=== PATIENT | female | born 1960 | race African-American/Black ===

== ENCOUNTER 2017-05-13 09:35 | Inpatient (IN) | payer SELFPAY ==
[2017-05-13 10:19] LABS: #Lymphocytes 1.8 thou/uL (1.20-3.40); #Monocytes 0.3 thou/uL (0.11-0.59); %Basophils 0.8 % (0.0-1.0); %Eosinophils 0.3 % (0.0-10.0); %Lymphocytes 35.5 % (21.0-51.0); %Monocytes 6.1 % (0.0-10.0); Mean Platelet Volume 11.6 fL (7.4-10.4); Red Blood Cell (RBC) Count 5.41 mill/uL (4.20-5.40); White Blood Cell (WBC) Count 5.2 thou/uL (4.8-10.8)
[2017-05-13 10:43] LABS: ALT (SGPT) 31 U/L (8-55); AST (SGOT) 35 U/L (5-34); Alkaline Phosphatase 139 U/L (40-150); Anion Gap 10 mmol/L (10-20); BUN (Urea Nitrogen) 31 mg/dL (9.8-20.1); Bilirubin, Total 1.5 mg/dL (0.2-1.2); CK (CPK) 110 U/L (29-168); Calc. Creatinine Clearance 0 mL/min (70-130); Carbon Dioxide 36 mmol/L (22-29); Chloride 101 mmol/L (98-107); Estimated GFR-MDRD 78; Globulin 3.2 g/dL (2.4-3.5); Lipase 16 U/L (8-78); Protein, Total 6.3 g/dL (6.0-8.3)
--- NOTE | 2017-05-13 10:44 | RAD ---
PORTABLE CHEST: HISTORY: Cough. COMPARISON: Comparison is made to the prior exam of 06/23/11. FINDINGS: There has been significant enlargement in the cardiac silhouette when compared to the prior study. H eart has somewhat of a globular appearance. Pericardial effusion cannot be excluded. Consider furth er evaluation with echo. No evidence of infiltrate. No evidence of vascular congestion or edema. No evidence of effusion. IMPRESSION: Cardiomegaly. Significant change in appearance of the heart since the prior exam. Pericardial effus ion cannot be excluded. POS: JARROD
[2017-05-13 10:48] LABS: Troponin I 0.018 ng/mL (< 0.028)
[2017-05-13] MEDS ORDERED: Aspirin 81 mg Enteric Coated Tablet ONE (11:46)
[2017-05-13] MEDS ORDERED: Furosemide 40 MG/4 ML VIAL ONE (11:46)
[2017-05-13 13:49] LABS: Troponin I 0.028 ng/mL (< 0.028)
--- NOTE | 2017-05-13 14:05 | HP ---
PRIMARY CARE PHYSICIAN: [facility]. REASON FOR ADMISSION: New onset congestive heart failure and anasarca. HISTORY OF PRESENT ILLNESS: A 56-year-old -[place] female with a history of hypertension and hypothyroidism, who presented to emergency room for evaluation of increasing bilateral lower extremity edema. The patient has increasing lower extremity edema for the last one month, which is gradually getting worse. The patient has history of CHF and she ran out of her Lasix. The patient was not taking any Lasix for about 1 month and since then she noticed increasing edema. The patient denies any fever or chills, but she does report cough, productive of white sputum. She does report orthopnea. She reports weight gain about 14 pounds in 1 month. The patient also has a history of diabetes, but she was not taking any metformin therapy. She does have a history of hypertension and she is taking all her medication. She gets dyspnea on exertion. She denies any palpitations. She denies any syncope. She denies any chest pain. She denies any urinary tract infection symptoms. She denies any constipation, diarrhea, melena, or hematochezia. ALLERGIES: No known drug allergies. CURRENT HOME MEDICATIONS: The patient is not taking any medication at this point because she ran out of medication and she did not follow up with the primary care physician. REVIEW OF SYSTEMS: The following complete review of systems was negative, unless otherwise mentioned in the HPI or below: Constitutional: Weight loss or gain, ability to conduct usual activities. Skin: Rash, itching. Eyes: Double vision, pain. ENT/Mouth: Nose bleeding, neck stiffness, pain, tenderness. Cardiovascular: Palpitations, dyspnea on exertion, orthopnea. Respiratory: Shortness of breath, wheezing, cough, hemoptysis, fever or night sweats. Gastrointestinal: Poor appetite, abdominal pain, heartburn, nausea, vomiting, constipation, or diarrhea. Genitourinary: Urgency, frequency, dysuria, nocturia. Musculoskeletal: Pain, swelling. Neurologic/Psychiatric: Anxiety, depression. Allergy/Immunologic: Skin rash, bleeding tendency. Please see my HPI for pertinent positives and negatives. All other review of system reviewed and negative except as mentioned in the HPI. PAST MEDICAL HISTORY: Diabetes type 2, iatrogenic hypothyroidism, hypertension , and COPD. PAST SURGICAL HISTORY: Thyroidectomy. PAST PSYCHIATRIC HISTORY: Reviewed and negative. SOCIAL HISTORY: The patient is smoking about 1 pack per day. She denies any alcohol abuse. She denies any other illicit drug abuse. 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 FAMILY HISTORY: Mother had lung cancer. Hypertension runs among several family members. EMERGENCY ROOM COURSE: The patient is given Lasix 40 mg and aspirin 324 mg. PHYSICAL EXAMINATION: VITAL SIGNS: On arrival, blood pressure 130/89, pulse 87, respiratory rate 24, temperature 97.7, saturation 91% on room air, and weight 83.9 kilograms. GENERAL: The patient is currently alert, awake, chronically ill, no obvious acute distress. HEENT: Head: Normocephalic, atraumatic. Eyes: Pupils round, reactive to light. Extraocular muscles intact. ENT: Oropharynx within normal limits. Moist mucous membranes. No oral lesions. No pharyngeal erythema, no exudate. NECK: Supple, slightly elevated JVD, no thyromegaly, no carotid bruit, no meningeal signs of irritation. LUNGS: Bibasilar rales noted, end expiratory wheezing heard. CARDIAC: S1 and S2 regular, soft systolic murmur noted. No gallop, no rub. ABDOMEN: Soft. Ascites present. Bowel sounds present. Abdominal wall edema noted. No peritoneal signs, no guarding, no rigidity, no rebound. BACK: Unremarkable, no CVA tenderness. EXTREMITIES: Upper extremity passive movement of all joints are normal. Lower extremity; bilateral +4 pitting edema noted over both lower extremities. Good pulsation noted. SKIN: No skin rash. HEMATOLOGICAL: No lymphadenopathy. PSYCHIATRIC: Normal affect. NEUROLOGIC: Nonfocal examination. SIGNIFICANT LABS: EKG based on my review reveals normal sinus rhythm, nonspecific ST-T changes, biatrial enlargement. Chest x-ray showing cardiomegaly, pulmonary vascular congestion noted. CBC: WBC 5.2, hemoglobin 17.4, MCV 102.0, platelets 123. BMP: Sodium 143, potassium 3.7, chloride 101, carbon dioxide 36, anion gap 10, BUN 31, creatinine 0.91, glucose 92, calcium 10.0. LFT: AST 35, ALT 31, alkaline phosphatase 139, albumin 3.1. CK 110, CK-MB 2.8, troponin 0.018. BNP 681.7, lipase 16. ASSESSMENT AND PLAN: 1. Acute on chronic right-sided congestive heart failure, likely diastolic, predominantly right-sided heart failure, suspecting from chronic hypoxia from undiagnosed chronic obstructive pulmonary disease. At this point, the patient has anasarca. The patient will need diuretic therapy. The patient will be admitted to telemetry floor. We will obtain echocardiography to assess ejection fraction and other structural abnormality, we will continue with Lasix 40 mg IV b.i.d., fluid restriction 1200 mL per day, DuoNeb therapy q.6 hourly. Further decision, we will defer after the echocardiographic result. If this patient now to be systolic heart failure, then she will need ischemic evaluation and cardiology evaluation if needed. We will rule out acute coronary syndrome with serial cardiac enzymes during this admission. 2. Macrocytosis. We will start folic acid and vitamin B12 therapy and we will check hepatitis profile to rule out any hepatitis. 3. Ascites. 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 The patient will need diuretic therapy. We are also going to check hepatitis profile to rule out any liver pathology. 4. Diabetes type 2. We will continue with insulin as per sliding scale per protocol. Diabetic diet will be given and will repeat hemoglobin A1c tomorrow. 5. Hypothyroidism. We will check TSH and start Synthroid 75 mcg p.o. daily. 6. Hypertension. We will monitor patient's blood pressure and titrate blood pressure medication while in hospital. 7. Tobacco abuse disorder. Smoking cessation counseling given. Healthy lifestyle measures discussed with the patient. We will offer nicotine patch if needed. 8. Elevated carbon dioxide on BMP, suspecting from chronic respiratory acidosis. We will obtain ABG, just to look for any respiratory acid base status. This could be from metabolic alkalosis and that is why we are going to do the ABG for further evaluation. 9. Chronic obstructive pulmonary disease. We will continue with the DuoNeb therapy q.6 hourly while in hospital. 10. Deep venous thrombosis prophylaxis. Lovenox 40 mg subcu daily. 11. Gastrointestinal prophylaxis. Pepcid 20 mg p.o. b.i.d. 12. Code status: The patient is FULL CODE. The patient does not have any surrogate decision maker. 13. Disposition plan based on clinical course. We are expecting patient's stay in hospital more than 2 midnights. Plan of care discussed with the patient in detail. MTDD
[2017-05-13 14:59] VITALS: BMI 29.0
[2017-05-13] MEDS ORDERED: Senokot 8.6 MG TAB PO PRN (15:26)
[2017-05-13] MEDS ORDERED: Chloraseptic Spray 180 ml Bottle PO PRN (15:26)
[2017-05-13] MEDS ORDERED: Dextrose 5% in Water 1,000 ML IV PRN (15:26)
[2017-05-13] MEDS ORDERED: Ondansetron ODT 4 MG TAB PO PRN (15:26)
[2017-05-13] MEDS ORDERED: HYDROcodone/Acetaminophen 5/325 mg Tablet PO PRN (15:26)
[2017-05-13] MEDS ORDERED: Loperamide HCl 2 MG CAP PO PRN (15:26)
[2017-05-13] MEDS ORDERED: Eucerin (Mineral Oil/Petrolatum,White) 30 gm Jar TOP PRN (15:26)
[2017-05-13] MEDS ORDERED: hydrALAZINE 20 MG/ML VIAL SLOW IVP PRN (15:26)
[2017-05-13] MEDS ORDERED: Sodium Chloride 0.65% Nasal 44 ML BOT EA NARE PRN (15:26)
[2017-05-13] MEDS ORDERED: Loratadine 10 MG TAB PO PRN (15:26)
[2017-05-13] MEDS ORDERED: Ondansetron HCl/PF 4 MG/2 ML Vial IVP PRN (15:26)
[2017-05-13] MEDS ORDERED: Dextrose 50% Abboject 50 ML SYRINGE SLOW IVP PRN (15:26)
[2017-05-13] MEDS ORDERED: Zolpidem Tartrate 5 MG TAB PO PRN (15:26)
[2017-05-13] MEDS ORDERED: Acetaminophen 325 MG TAB PO PRN (15:26)
[2017-05-13] MEDS ORDERED: HumaLOG 300 UNITS/3 ML VIAL SC PRN ×2 (15:26)
[2017-05-13] MEDS ORDERED: Artificial Tears 18 DROP/0.9 ML EA EYE PRN (15:26)
[2017-05-13] MEDS ORDERED: Mag-Al 1200 mg/1200 mg/30 ML UDCUP PO PRN (15:26)
[2017-05-13] MEDS ORDERED: Nitroglycerin 0.4 MG TAB (25 Tab Bottle) SL PRN (15:26)
[2017-05-13] MEDS ORDERED: Milk Of Magnesia 30 ML UDCUP PO PRN (15:26)
[2017-05-13] MEDS ORDERED: Diabetic Tussin 200 MG/10 ML UDCUP PO PRN (15:26)
[2017-05-13] MEDS ORDERED: Benzonatate 100 MG CAP PO PRN (15:26)
[2017-05-13 15:45] LABS: Oxyhemoglobin 71.9 % (94.0-97.0); Sodium 144 mmol/L (135-148)
[2017-05-13 15:46] LABS: Mode ROOM AIR; Modified Allen's Test POSITIVE
[2017-05-13] MEDS ORDERED: Furosemide 40 MG/4 ML VIAL SLOW IVP SCH (16:30)
[2017-05-13] MEDS ORDERED: Sodium Chloride 0.9% 10 ML ONE (17:26)
[2017-05-13 17:29] LABS: Troponin I 0.022 ng/mL (< 0.028)
[2017-05-13] MEDS: Mometasone/Formoterol 120 PUFF INHALER INH SCH (19:02)
[2017-05-13] MEDS: Famotidine 20 MG TAB PO SCH (20:40)
[2017-05-13] MEDS: Carvedilol 3.125 MG TAB PO SCH (20:40)
[2017-05-13] MEDS: guaiFENesin ER 600 MG TAB PO SCH (20:40)
[2017-05-14 05:26] LABS: #Lymphocytes 1.6 thou/uL (1.20-3.40); #Monocytes 0.6 thou/uL (0.11-0.59); #Neutrophils 2.2 thou/uL (1.40-6.50); %Basophils 0.9 % (0.0-1.0); %Lymphocytes 35.8 % (21.0-51.0); %Monocytes 13.9 % (0.0-10.0); Hematocrit 54.5 % (36.0-47.0); Mean Platelet Volume 11.5 fL (7.4-10.4); White Blood Cell (WBC) Count 4.6 thou/uL (4.8-10.8)
[2017-05-14] MEDS: Levothyroxine Sodium 75 MCG TAB PO SCH (05:27)
[2017-05-14] MEDS: Furosemide 40 MG/4 ML VIAL SLOW IVP SCH ×2 (05:27→14:47)
[2017-05-14 05:49] LABS: ALT (SGPT) 26 U/L (8-55); AST (SGOT) 30 U/L (5-34); Alkaline Phosphatase 115 U/L (40-150); BUN (Urea Nitrogen) 29 mg/dL (9.8-20.1); Bilirubin, Total 1.4 mg/dL (0.2-1.2); Calc. Creatinine Clearance 78 mL/min (70-130); Calcium 9.8 mg/dL (7.8-10.44); Cholesterol 125 mg/dl (< 200 Desired); Estimated GFR-MDRD 65; LDL Cholesterol, Calculated 78 mg/dL; Magnesium 1.4 mg/dL (1.6-2.6); Protein, Total 5.9 g/dL (6.0-8.3); Uric Acid 12.2 mg/dL (2.6-6.0)
[2017-05-14 06:00] LABS: Chloride 100 mmol/L (98-107)
[2017-05-14 06:03] LABS: Anion Gap 15 mmol/L (10-20); Carbon Dioxide 33 mmol/L (22-29)
[2017-05-14] MEDS ORDERED: Magnesium Sulfate 4 GM, Admixture Fee 1 EACH in Sodium Chloride 0.9% 250 ML 250 ML IVPB SCH (07:15)
[2017-05-14] MEDS: Allopurinol 100 MG TAB PO SCH (08:34)
[2017-05-14] MEDS: Folic Acid 1 MG TAB PO SCH (08:34)
[2017-05-14] MEDS: Cyanocobalamin (Vitamin B-12) 1,000 MCG TAB PO SCH (08:34)
[2017-05-14] MEDS: guaiFENesin ER 600 MG TAB PO SCH ×2 (08:34→21:23)
[2017-05-14] MEDS: Famotidine 20 MG TAB PO SCH ×2 (08:34→21:23)
[2017-05-14] MEDS: Enoxaparin Sodium 40 MG/0.4 ML SYRINGE SC SCH (08:38)
[2017-05-14] MEDS ORDERED: FLU VACC QS2017-18 36 mo. & older 0.5 ML SYRINGE IM ONE (09:00)
[2017-05-14] MEDS: Lisinopril 2.5 MG TAB PO SCH (09:17)
--- NOTE | 2017-05-14 09:26 | PDOC.PN ---
- Subjective Encounter Start Date: 05/14/17 Encounter Start Time: 08:10 -: old records requested/rev Patient seen and examined. No new complaints. No overnight events - Objective Resuscitation Status: Resuscitation Status FULL:Full Resuscitation MAR Reviewed: Yes Vital Signs & Weight: Vital Signs (12 hours) Temp Pulse Resp BP BP Pulse Ox 05/14/17 09:17 97 99/62 05/14/17 07:58 97.8 F 20 99/62 05/14/17 05:25 97 18 106/68 96 05/14/17 04:00 98.3 F 81 16 91/53 L 05/14/17 00:57 94 L Weight Weight 178 lb 14.4 oz I&O: 05/13/17 05/14/17 05/15/17 06:59 06:59 06:59 Intake Total 534 Output Total 1100 750 Balance -566 -750 Result Diagrams: 05/14/17 04:59 05/14/17 04:59 Additional Labs: Accuchecks 05/14/17 05/13/17 06:04 20:34 POC Glucose 94 121 H EKG Reviewed by me: Yes Phys Exam - Physical Examination Constitutional: NAD HEENT: PERRLA, moist MMs, sclera anicteric Neck: no nodes, supple, full ROM Respiratory: no wheezing, no rales, no rhonchi reduced air entry Cardiovascular: RRR, no significant murmur, no rub Gastrointestinal: soft, non-tender, positive bowel sounds Musculoskeletal: pulses present, edema present Neurological: non-focal, normal sensation, moves all 4 limbs Lymphatic: no nodes Psychiatric: normal affect Skin: no rash, normal turgor Dx/Plan (1) Acute on chronic diastolic (congestive) heart failure Code(s): I50.33 - ACUTE ON CHRONIC DIASTOLIC (CONGESTIVE) HEART FAILURE Status : Acute (2) Acute on chronic respiratory failure with hypoxia and hypercapnia Code(s): J96.21 - ACUTE AND CHRONIC RESPIRATORY FAILURE WITH HYPOXIA; J96.22 - ACUTE AND CHRONIC RESPIRATORY FAILURE WITH HYPERCAPNIA Status: Acute (3) Anasarca Code(s): R60.1 - GENERALIZED EDEMA Status: Acute (4) COPD exacerbation Code(s): J44.1 - CHRONIC OBSTRUCTIVE PULMONARY DISEASE W (ACUTE) EXACERBATION Status: Acute (5) Hyperuricemia Code(s): E79.0 - HYPERURICEMIA W/O SIGNS OF INFLAM ARTHRIT AND TOPHACEOUS DIS Status: Acute (6) Hypomagnesemia Code(s): E83.42 - HYPOMAGNESEMIA Status: Acute (7) Compensated respiratory acidosis Code(s): E87.2 - ACIDOSIS Status: Chronic (8) Diabetes type 2, controlled Code(s): E11.9 - TYPE 2 DIABETES MELLITUS WITHOUT COMPLICATIONS Status: Chronic (9) Hypertension Code(s): I10 - ESSENTIAL (PRIMARY) HYPERTENSION Status: Chronic (10) Hypothyroidism Code(s): E03.9 - HYPOTHYROIDISM, UNSPECIFIED Status: Chronic (11) Macrocytosis Code(s): D75.89 - OTHER SPECIFIED DISEASES OF BLOOD AND BLOOD-FORMING ORGANS Status: Chronic (12) Tobacco abuse Code(s): Z72.0 - TOBACCO USE Status: Chronic - Plan cont current plan of care, respiratory therapy * monitor oxygen level * continue IV lasix * Echo pending * medication reviewed as below * symptomatic treatment * counselled to avoid smoking * repeat labs tomorrow. * replace magnesium Review of Systems - Review of Systems Constitutional: negative: Fever, Chills, Sweats, Weakness, Malaise, Other Eyes: negative: Pain, Vision Change, Conjunctivae Inflammation, Eyelid Inflammation, Redness, Other ENT: negative: Ear Pain, Ear Discharge, Nose Pain, Nose Discharge, Nose Congestion, Mouth Pain, Mouth Swelling, Throat Pain, Throat Swelling, Other Respiratory: Shortness of Breath, SOB with Excertion. negative: Cough, Dry, Hemoptysis, Pleuritic Pain, Sputum, Wheezing Cardiovascular: Edema. negative: Chest Pain, Palpitations, Orthopnea, Paroxysmal Noc. Dyspnea, Light Headedness, Other Gastrointestinal: negative: Nausea, Vomiting, Abdominal Pain, Diarrhea, Constipation, Melena, Hematochezia, Other Genitourinary: negative: Dysuria, Frequency, Incontinence, Hematuria, Retention , Other Musculoskeletal: negative: Neck Pain, Shoulder Pain, Arm Pain, Back Pain, Hand Pain, Leg Pain, Foot Pain, Other Skin: negative: Rash, Lesions, Sharan, Bruising, Other - Medications/Allergies Allergies/Adverse Reactions: Allergies Allergy/AdvReac Type Severity Reaction Status Date / Time No Known Allergies Allergy Unverified 05/13/17 15:06 Medications: Current Medications Acetaminophen (Tylenol) 650 mg PO Q4H PRN PRN Reason: Headache/Fever or Pain Hydrocodone Bitart/Acetaminophen ([place] 5/325) 1 tab PO Q4H PRN PRN Reason: Moderate Pain (4-6) Al Hydroxide/Mg Hydroxide (Maalox) 30 ml PO Q6H PRN PRN Reason: Heartburn or Indigestion Albuterol/Ipratropium (Duoneb) 3 ml NEB [id number] [facility] Last Admin: 05/14/17 00:57 Dose: 3 ml Allopurinol (Zyloprim) 100 mg PO DAILY [facility] Last Admin: 05/14/17 08:34 Dose: 100 mg Artificial Tears (Tears Naturale) 0 drop EA EYE PRN PRN PRN Reason: Dry Eyes Aspirin (Aspirin Chewable) 81 mg PO DAILY [facility] Last Admin: 05/14/17 08:34 Dose: 81 mg Benzonatate (Tessalon) 100 mg PO Q4H PRN PRN Reason: Cough Carvedilol (Coreg) 3.125 mg PO BID [facility] Last Admin: 05/13/17 20:40 Dose: 3.125 mg Cyanocobalamin (Vitamin B-12) 1,000 mcg PO DAILY [facility] Last Admin: 05/14/17 08:34 Dose: 1,000 mcg Dextrose/Water (Dextrose 50%) 25 gm SLOW IVP PRN PRN PRN Reason: Hypoglycemia Enoxaparin Sodium (Lovenox) 40 mg SC 0900 [facility] Last Admin: 05/14/17 08:38 Dose: 40 mg Famotidine (Pepcid) 20 mg PO BID [facility] Last Admin: 05/14/17 08:34 Dose: 20 mg Folic Acid (Folvite) 1 mg PO DAILY [facility] Last Admin: 05/14/17 08:34 Dose: 1 mg Furosemide (Lasix) 40 mg SLOW IVP 0600,1400 [facility] Last Admin: 05/14/17 05:27 Dose: 40 mg Glucagon (Glucagon) 1 mg IM PRN PRN PRN Reason: Hypoglycemia Guaifenesin (Robitussin Sf) 200 mg PO Q4H PRN PRN Reason: Cough Guaifenesin (Mucinex) 600 mg PO Q12HR [facility] Last Admin: 05/14/17 08:34 Dose: 600 mg Hydralazine HCl (Apresoline) 10 mg SLOW IVP Q4H PRN PRN Reason: Systolic BP > 180 Dextrose/Water (D5w) 1,000 mls @ 0 mls/hr IV .Q0M PRN; As Directed PRN Reason: Hypoglycemia Magnesium Sulfate 4 gm/Miscellaneous Medication 1 each/ Sodium Chloride 258 mls @ 86 mls/hr IVPB ONE [facility] Stop: 05/14/17 12:00 Insulin Human Lispro (Humalog) 0 units SC .MODERATE SLIDING SC PRN PRN Reason: Moderate Correctional Scale Insulin Human Lispro (Humalog) 0 units SC .BEDTIME SLIDING SC PRN PRN Reason: Bedtime Correctional Scale Levothyroxine Sodium (Synthroid) 75 mcg PO 0600 [facility] Last Admin: 05/14/17 05:27 Dose: 75 mcg Lisinopril (Zestril) 2.5 mg PO DAILY [facility] Last Admin: 05/14/17 09:17 Dose: 2.5 mg Loperamide HCl (Imodium) 2 mg PO PRN PRN PRN Reason: Diarrhea/Loose Stools Loratadine (Claritin) 10 mg PO DAILYPRN PRN PRN Reason: Sinus Symptoms Magnesium Hydroxide (Milk Of Magnesium) 30 ml PO DAILYPRN PRN PRN Reason: Constipation Mineral Oil/White Petrolatum (Eucerin Cream) 0 gm TOP BIDPRN PRN PRN Reason: Dry Skin Mometasone Furoate/Formoterol Fumar (Dulera 200 Mcg/5 Mcg Inhaler) 2 puff INH BID-RT [facility] Last Admin: 05/13/17 19:02 Dose: 2 puff Nitroglycerin (Nitrostat) 0.4 mg SL Q5MIN PRN PRN Reason: Chest Pain Ondansetron HCl (Zofran Odt) 4 mg PO Q6H PRN PRN Reason: Nausea/Vomiting Ondansetron HCl (Zofran) 4 mg IVP Q6H PRN PRN Reason: Nausea/Vomiting Phenol (Chloraseptic [place] 180 Ml Bot) 0 ml PO PRN PRN PRN Reason: Sore Throat Senna (Senokot) 2 tab PO HSPRN PRN PRN Reason: Constipation Sodium Chloride ([place] Nasal [place] 0.65%) 0 ml EA NARE QIDPRN PRN PRN Reason: Nasal Congestion Sodium Chloride (Flush - Normal Saline) 10 ml IVF Q12HR FEROZ Sodium Chloride (Flush - Normal Saline) 10 ml IVF PRN PRN PRN Reason: Saline Flush Zolpidem Tartrate (Ambien) 5 mg PO HSPRN PRN PRN Reason: Insomnia
[2017-05-14] MEDS: Carvedilol 3.125 MG TAB PO SCH ×2 (09:27→21:23)
[2017-05-14] MEDS: Mometasone/Formoterol 120 PUFF INHALER INH SCH ×2 (12:10→19:14)
[2017-05-15] MEDS: Levothyroxine Sodium 75 MCG TAB PO SCH (06:14)
[2017-05-15] MEDS: Furosemide 40 MG/4 ML VIAL SLOW IVP SCH ×2 (06:52→15:15)
[2017-05-15] MEDS: Mometasone/Formoterol 120 PUFF INHALER INH SCH ×2 (07:30→18:44)
[2017-05-15] MEDS: Lisinopril 2.5 MG TAB PO SCH (09:00)
[2017-05-15] MEDS: Enoxaparin Sodium 40 MG/0.4 ML SYRINGE SC SCH (09:28)
[2017-05-15] MEDS: Carvedilol 3.125 MG TAB PO SCH ×2 (09:29→20:39)
[2017-05-15] MEDS: Allopurinol 100 MG TAB PO SCH (09:29)
[2017-05-15] MEDS: Famotidine 20 MG TAB PO SCH ×2 (09:29→20:40)
[2017-05-15] MEDS: guaiFENesin ER 600 MG TAB PO SCH ×2 (09:29→20:39)
[2017-05-15] MEDS: Folic Acid 1 MG TAB PO SCH (09:29)
[2017-05-15] MEDS: Cyanocobalamin (Vitamin B-12) 1,000 MCG TAB PO SCH (09:29)
--- NOTE | 2017-05-15 10:01 | PDOC.PN ---
- Subjective Encounter Start Date: 05/15/17 Encounter Start Time: 08:30 -: old records requested/rev edema is improving, but still has dyspnea, feels weak, no chest pain - Objective Resuscitation Status: Resuscitation Status FULL:Full Resuscitation MAR Reviewed: Yes Vital Signs & Weight: Vital Signs (12 hours) Temp Pulse Resp BP BP Pulse Ox 05/15/17 09:00 97.6 F 74 20 98/65 97 05/15/17 07:30 95 16 05/15/17 07:25 95 05/15/17 07:22 95 16 05/15/17 06:08 71 16 92/57 L 05/15/17 04:00 97.3 F L 77 20 92/57 L 95 05/14/17 23:36 98 Weight Weight 171 lb 12.8 oz I&O: 05/14/17 05/15/17 05/16/17 06:59 06:59 06:59 Intake Total 534 980 Output Total 1100 3050 Balance -050 -7635 Result Diagrams: 05/14/17 04:59 05/14/17 04:59 Additional Labs: Accuchecks 05/15/17 05/14/17 05/14/17 05:31 20:31 16:25 POC Glucose 82 101 120 H 05/14/17 05/13/17 10:48 17:00 POC Glucose 116 H 89 Radiology Reviewed by me: Yes (echo) EKG Reviewed by me: Yes (nsr) Phys Exam - Physical Examination Constitutional: NAD HEENT: PERRLA, moist MMs, sclera anicteric Neck: no nodes, supple, full ROM JVD+ Respiratory: no wheezing, no rhonchi reduced air entry both side Cardiovascular: RRR, no significant murmur, no rub Gastrointestinal: soft, positive bowel sounds ascites+ Musculoskeletal: pulses present, edema present Neurological: non-focal, normal sensation Lymphatic: no nodes Psychiatric: normal affect, A&O x 3 Skin: no rash, normal turgor Dx/Plan (1) Acute on chronic diastolic (congestive) heart failure Code(s): I50.33 - ACUTE ON CHRONIC DIASTOLIC (CONGESTIVE) HEART FAILURE Status : Acute (2) Acute on chronic respiratory failure with hypoxia and hypercapnia Code(s): J96.21 - ACUTE AND CHRONIC RESPIRATORY FAILURE WITH HYPOXIA; J96.22 - ACUTE AND CHRONIC RESPIRATORY FAILURE WITH HYPERCAPNIA Status: Acute (3) Anasarca Code(s): R60.1 - GENERALIZED EDEMA Status: Acute (4) COPD exacerbation Code(s): J44.1 - CHRONIC OBSTRUCTIVE PULMONARY DISEASE W (ACUTE) EXACERBATION Status: Acute (5) Hyperuricemia Code(s): E79.0 - HYPERURICEMIA W/O SIGNS OF INFLAM ARTHRIT AND TOPHACEOUS DIS Status: Acute (6) Hypomagnesemia Code(s): E83.42 - HYPOMAGNESEMIA Status: Acute (7) Compensated respiratory acidosis Code(s): E87.2 - ACIDOSIS Status: Chronic (8) Diabetes type 2, controlled Code(s): E11.9 - TYPE 2 DIABETES MELLITUS WITHOUT COMPLICATIONS Status: Chronic (9) Hypertension Code(s): I10 - ESSENTIAL (PRIMARY) HYPERTENSION Status: Chronic (10) Hypothyroidism Code(s): E03.9 - HYPOTHYROIDISM, UNSPECIFIED Status: Chronic (11) Macrocytosis Code(s): D75.89 - OTHER SPECIFIED DISEASES OF BLOOD AND BLOOD-FORMING ORGANS Status: Chronic (12) Tobacco abuse Code(s): Z72.0 - TOBACCO USE Status: Chronic (13) Severe tricuspid regurgitation Code(s): I07.1 - RHEUMATIC TRICUSPID INSUFFICIENCY Status: Acute - Plan cont current plan of care, respiratory therapy * pt still needs more diuresis * will continue to adjust her meds * she has right sided heart failure * will need to assess today if she needs home oxygen * medication reviewed as below * symptomatic treatment * will replace electrolytes and repeat labs tomorrow. Review of Systems - Review of Systems Constitutional: Weakness. negative: Fever, Chills, Sweats, Malaise, Other ENT: negative: Ear Pain, Ear Discharge, Nose Pain, Nose Discharge, Nose Congestion, Mouth Pain, Mouth Swelling, Throat Pain, Throat Swelling, Other Respiratory: Cough, Shortness of Breath, SOB with Excertion. negative: Dry, Hemoptysis, Pleuritic Pain, Sputum, Wheezing Cardiovascular: Edema. negative: Chest Pain, Palpitations, Orthopnea, Paroxysmal Noc. Dyspnea, Light Headedness, Other Gastrointestinal: negative: Nausea, Vomiting, Abdominal Pain, Diarrhea, Constipation, Melena, Hematochezia, Other Genitourinary: negative: Dysuria, Frequency, Incontinence, Hematuria, Retention , Other Musculoskeletal: negative: Neck Pain, Shoulder Pain, Arm Pain, Back Pain, Hand Pain, Leg Pain, Foot Pain, Other Skin: negative: Rash, Lesions, Sharan, Bruising, Other - Medications/Allergies Allergies/Adverse Reactions: Allergies Allergy/AdvReac Type Severity Reaction Status Date / Time No Known Allergies Allergy Unverified 05/13/17 15:06 Medications: Current Medications Acetaminophen (Tylenol) 650 mg PO Q4H PRN PRN Reason: Headache/Fever or Pain Hydrocodone Bitart/Acetaminophen ([place] 5/325) 1 tab PO Q4H PRN PRN Reason: Moderate Pain (4-6) Al Hydroxide/Mg Hydroxide (Maalox) 30 ml PO Q6H PRN PRN Reason: Heartburn or Indigestion Last Admin: 05/14/17 21:28 Dose: 30 ml Albuterol/Ipratropium (Duoneb) 3 ml NEB [id number] [facility] Last Admin: 05/15/17 07:22 Dose: 3 ml Allopurinol (Zyloprim) 100 mg PO DAILY [facility] Last Admin: 05/15/17 09:29 Dose: 100 mg Artificial Tears (Tears Naturale) 0 drop EA EYE PRN PRN PRN Reason: Dry Eyes Aspirin (Aspirin Chewable) 81 mg PO DAILY [facility] Last Admin: 05/15/17 09:29 Dose: 81 mg Benzonatate (Tessalon) 100 mg PO Q4H PRN PRN Reason: Cough Carvedilol (Coreg) 3.125 mg PO BID [facility] Last Admin: 05/15/17 09:29 Dose: 3.125 mg Cyanocobalamin (Vitamin B-12) 1,000 mcg PO DAILY [facility] Last Admin: 05/15/17 09:29 Dose: 1,000 mcg Dextrose/Water (Dextrose 50%) 25 gm SLOW IVP PRN PRN PRN Reason: Hypoglycemia Enoxaparin Sodium (Lovenox) 40 mg SC 0900 [facility] Last Admin: 05/15/17 09:28 Dose: 40 mg Famotidine (Pepcid) 20 mg PO BID [facility] Last Admin: 05/15/17 09:29 Dose: 20 mg Folic Acid (Folvite) 1 mg PO DAILY [facility] Last Admin: 05/15/17 09:29 Dose: 1 mg Furosemide (Lasix) 40 mg SLOW IVP 0600,1400 [facility] Last Admin: 05/15/17 06:52 Dose: Not Given Glucagon (Glucagon) 1 mg IM PRN PRN PRN Reason: Hypoglycemia Guaifenesin (Robitussin Sf) 200 mg PO Q4H PRN PRN Reason: Cough Guaifenesin (Mucinex) 600 mg PO Q12HR [facility] Last Admin: 05/15/17 09:29 Dose: 600 mg Hydralazine HCl (Apresoline) 10 mg SLOW IVP Q4H PRN PRN Reason: Systolic BP > 180 Dextrose/Water (D5w) 1,000 mls @ 0 mls/hr IV .Q0M PRN; As Directed PRN Reason: Hypoglycemia Insulin Human Lispro (Humalog) 0 units SC .MODERATE SLIDING SC PRN PRN Reason: Moderate Correctional Scale Insulin Human Lispro (Humalog) 0 units SC .BEDTIME SLIDING SC PRN PRN Reason: Bedtime Correctional Scale Levothyroxine Sodium (Synthroid) 75 mcg PO 0600 [facility] Last Admin: 05/15/17 06:14 Dose: 75 mcg Lisinopril (Zestril) 2.5 mg PO DAILY [facility] Last Admin: 05/14/17 09:17 Dose: 2.5 mg Loperamide HCl (Imodium) 2 mg PO PRN PRN PRN Reason: Diarrhea/Loose Stools Loratadine (Claritin) 10 mg PO DAILYPRN PRN PRN Reason: Sinus Symptoms Magnesium Hydroxide (Milk Of Magnesium) 30 ml PO DAILYPRN PRN PRN Reason: Constipation Mineral Oil/White Petrolatum (Eucerin Cream) 0 gm TOP BIDPRN PRN PRN Reason: Dry Skin Mometasone Furoate/Formoterol Fumar (Dulera 200 Mcg/5 Mcg Inhaler) 2 puff INH BID-RT [facility] Last Admin: 05/15/17 07:30 Dose: 2 puff Nitroglycerin (Nitrostat) 0.4 mg SL Q5MIN PRN PRN Reason: Chest Pain Ondansetron HCl (Zofran Odt) 4 mg PO Q6H PRN PRN Reason: Nausea/Vomiting Ondansetron HCl (Zofran) 4 mg IVP Q6H PRN PRN Reason: Nausea/Vomiting Phenol (Chloraseptic [place] 180 Ml Bot) 0 ml PO PRN PRN PRN Reason: Sore Throat Senna (Senokot) 2 tab PO HSPRN PRN PRN Reason: Constipation Sodium Chloride ([place] Nasal [place] 0.65%) 0 ml EA NARE QIDPRN PRN PRN Reason: Nasal Congestion Sodium Chloride (Flush - Normal Saline) 10 ml IVF Q12HR [facility] Last Admin: 05/14/17 21:23 Dose: 10 ml Sodium Chloride (Flush - Normal Saline) 10 ml IVF PRN PRN PRN Reason: Saline Flush Zolpidem Tartrate (Ambien) 5 mg PO HSPRN PRN PRN Reason: Insomnia
--- NOTE | 2017-05-15 11:40 | CT ---
CT ANGIO OF CHEST PERFORMED WITH INTRAVENOUS CONTRAST ENHANCEMENT WITH 3D RECONSTRUCTIONS: HISTORY: Shortness of breath. There are small bilateral pleural effusions, right larger than left, with subsegmental atelectatic ch anges in the lung bases. There is also some atelectatic change versus infiltrate involving the right middle lobe. Heart size is enlarged. There is pericardial effusion present. There is a dilated right atrium. Th ere is reflux of contrast into the inferior vena cava and somewhat dilated hepatic veins. The right ventricle is mildly dilated and there is dilatation of the main pulmonary artery compatible with pulm onary artery hypertension. The pulmonary arteries are fairly well opacified. I do not see any signs of pulmonary embolus. The visualized liver parenchyma shows what appears to be an enlarged liver. There is ascites noted. The spleen does not appear enlarged. IMPRESSION: 1. No Ct evidence for pulmonary embolus. 2. Cardiomegaly with pericardial effusion. In addition, there is evidence of right heart dysfunctio n. There is reflux of contrast into the IVC and dilated hepatic veins with a dilated right atrium an d lesser extent right ventricle as well as dilatation of the main pulmonary artery compatible with pu lmonary artery hypertension. Echocardiogram for further assessment would be recommended to evaluate for mitral regurgitation and other findings. 3. Small bilateral effusions, right larger than left, with bibasilar lung changes which appear to be related to atelectasis. 4. Right middle lobe atelectasis or infiltrate. 5. There is some mild ascites noted. The liver partially visualized but appears probably to be slig htly enlarged. POS: [facility]
[2017-05-15] MEDS ORDERED: Iopamidol 370 76% 100 ML VIAL ONE (13:36)
[2017-05-16 05:26] LABS: #Basophils 0.1 thou/uL (0.0-0.2); #Eosinphils 0.1 thou/uL (0.0-0.7); #Lymphocytes 1.7 thou/uL (1.20-3.40); #Monocytes 0.5 thou/uL (0.11-0.59); #Neutrophils 1.9 thou/uL (1.40-6.50); %Basophils 1.5 % (0.0-1.0); %Lymphocytes 40.2 % (21.0-51.0); %Monocytes 11.2 % (0.0-10.0); Hematocrit 51.8 % (36.0-47.0); Mean Platelet Volume 11.8 fL (7.4-10.4); Red Blood Cell (RBC) Count 5.01 mill/uL (4.20-5.40); White Blood Cell (WBC) Count 4.1 thou/uL (4.8-10.8)
[2017-05-16 05:30] LABS: BUN (Urea Nitrogen) 28 mg/dL (9.8-20.1); Calc. Creatinine Clearance 89 mL/min (70-130); Calcium 9.2 mg/dL (7.8-10.44); Estimated GFR-MDRD 81
[2017-05-16 05:39] LABS: Anion Gap 10 mmol/L (10-20); Carbon Dioxide 40 mmol/L (22-29); Chloride 97 mmol/L (98-107)
[2017-05-16] MEDS: Furosemide 40 MG/4 ML VIAL SLOW IVP SCH ×2 (05:42→15:08)
[2017-05-16] MEDS: Levothyroxine Sodium 75 MCG TAB PO SCH (05:43)
[2017-05-16] MEDS: Mometasone/Formoterol 120 PUFF INHALER INH SCH ×2 (08:06→19:08)
[2017-05-16] MEDS: Carvedilol 3.125 MG TAB PO SCH ×2 (08:46→21:02)
[2017-05-16] MEDS: Lisinopril 2.5 MG TAB PO SCH (08:46)
[2017-05-16] MEDS: Folic Acid 1 MG TAB PO SCH (08:46)
[2017-05-16] MEDS: Cyanocobalamin (Vitamin B-12) 1,000 MCG TAB PO SCH (08:46)
[2017-05-16] MEDS: guaiFENesin ER 600 MG TAB PO SCH ×2 (08:46→21:02)
[2017-05-16] MEDS: Allopurinol 100 MG TAB PO SCH (08:46)
[2017-05-16] MEDS: Famotidine 20 MG TAB PO SCH ×2 (08:47→21:02)
[2017-05-16] MEDS: Enoxaparin Sodium 40 MG/0.4 ML SYRINGE SC SCH (08:50)
--- NOTE | 2017-05-16 12:57 | PDOC.PN ---
- Subjective Encounter Start Date: 05/16/17 Encounter Start Time: 12:00 Subjective: I feel fine. still got swelling in legs, but much better. - Objective Resuscitation Status: Resuscitation Status FULL:Full Resuscitation MAR Reviewed: Yes Vital Signs & Weight: Vital Signs (12 hours) Temp Pulse Pulse Pulse Resp BP BP 05/16/17 09:11 75 77 122/71 05/16/17 08:46 73 111/71 05/16/17 08:06 80 12 05/16/17 08:05 80 12 05/16/17 08:00 98 F 73 20 05/16/17 05:41 68 16 05/16/17 04:00 98.2 F 73 16 BP BP Pulse Ox Pulse Ox 05/16/17 09:11 102/66 95 05/16/17 08:46 05/16/17 08:06 05/16/17 08:05 05/16/17 08:00 111/71 91 L 05/16/17 05:41 104/71 05/16/17 04:00 101/65 94 L Weight Weight 171 lb I&O: 05/15/17 05/16/17 05/17/17 06:59 06:59 06:59 Intake Total 980 1224 Output Total 3050 3000 Balance -2069 Result Diagrams: 05/16/17 04:33 05/16/17 04:33 Additional Labs: Accuchecks 05/16/17 05/15/17 05/15/17 06:20 20:45 17:04 POC Glucose 96 100 121 H Radiology Reviewed by me: Yes Phys Exam - Physical Examination Constitutional: NAD HEENT: PERRLA, moist MMs, sclera anicteric Neck: supple, full ROM Respiratory: no wheezing crackles Cardiovascular: RRR Gastrointestinal: soft, non-tender Musculoskeletal: edema present 3-4 pitting edema Neurological: non-focal, moves all 4 limbs Psychiatric: normal affect, A&O x 3 Dx/Plan (1) Acute on chronic diastolic (congestive) heart failure Code(s): I50.33 - ACUTE ON CHRONIC DIASTOLIC (CONGESTIVE) HEART FAILURE Status : Acute (2) Acute on chronic respiratory failure with hypoxia and hypercapnia Code(s): J96.21 - ACUTE AND CHRONIC RESPIRATORY FAILURE WITH HYPOXIA; J96.22 - ACUTE AND CHRONIC RESPIRATORY FAILURE WITH HYPERCAPNIA Status: Acute (3) Anasarca Code(s): R60.1 - GENERALIZED EDEMA Status: Acute (4) COPD exacerbation Code(s): J44.1 - CHRONIC OBSTRUCTIVE PULMONARY DISEASE W (ACUTE) EXACERBATION Status: Acute (5) Severe tricuspid regurgitation Code(s): I07.1 - RHEUMATIC TRICUSPID INSUFFICIENCY Status: Acute (6) Compensated respiratory acidosis Code(s): E87.2 - ACIDOSIS Status: Chronic (7) Diabetes type 2, controlled Code(s): E11.9 - TYPE 2 DIABETES MELLITUS WITHOUT COMPLICATIONS Status: Chronic (8) Hypertension Code(s): I10 - ESSENTIAL (PRIMARY) HYPERTENSION Status: Chronic (9) Hypothyroidism Code(s): E03.9 - HYPOTHYROIDISM, UNSPECIFIED Status: Chronic - Plan cont current plan of care, respiratory therapy Patient still with edema, needs cardiology eval prior to d/c * .
--- NOTE | 2017-05-16 16:51 | CON ---
DATE OF CONSULTATION: 05/16/2017 REASON FOR CONSULTATION: Right-sided failure. HISTORY OF PRESENT ILLNESS: Mrs. Scott is a 56-year-old woman who has not been seen or evaluated b y Cardiology in the past. She states she started beginning to having swelling in her lower extremiti es in September. She has been treated by Dr. Hudson with Lasix therapy. Her symptoms have continued. Ove r the last several months, it has worsened. She has developed ascites as well. Unfortunately, she s mokes 2 packs per day. She also gives a history of having apnea as being told by roommate in the pas t. She is not and has no children. She has undergone a CT scan of the chest which did revea l right-sided dysfunction and a small pericardial effusion. Echo findings are noted below. At this point, she states she is near her baseline. MEDICATIONS: Only Lasix. ALLERGIES: None. SOCIAL HISTORY: As above. REVIEW OF SYSTEMS: A 10-point systems is reviewed and as above, otherwise negative. PHYSICAL EXAMINATION: GENERAL: She does appear much older than the stated age. VITAL SIGNS: Blood pressure 93/62, pulse 66, temperature 97.9. NEUROLOGIC: The patient is alert and oriented times 3 with no focal neurologic deficits. HEENT: Sclerae without icterus. Mouth has moist mucous membranes with normal pallor. NECK: No JVD. Carotid upstroke brisk. No bruits bilaterally. LUNGS: Clear to auscultation with unlabored respirations. BACK: No scoliosis or kyphosis. CARDIAC: Regular rate and rhythm with normal S1 and S2. No S3 or S4 noted. No significant rubs, mu rmurs, thrills, or gallops noted throughout the precordium. PMI is not displaced. There is no shell ternal heave. ABDOMEN: Positive ascites. EXTREMITIES: 1 to 2+ pitting edema. SKIN: No gross abnormalities. PERTINENT LABORATORY DATA AND IMAGIN. Hemoglobin 15.6, creatinine 0.88. 2. CT scan negative for ZOHAIB. 3. Echo with Doppler LVEF 50%-55%. There is mild concentric LVH with paradoxical septal motion cons istent with right ventricular volume overload. Her right ventricle appeared moderate to severely enl arged. She does have a small pericardial effusion. IMPRESSION: 1. Right-sided failure. 2. Tobacco abuse. RECOMMENDATIONS: Etiology to her current demise is unknown. She may have obstructive sleep apnea ve rsus COPD. May need to get Pulmonary involved as well. From my standpoint, options are limited. If this is not felt to be a primary pulmonary cause, she would benefit from being seen in the pulmonary hypertension clinic in [place], but due to limited resources, states she is not able to. Would also like to get her tested for obstructive sleep apnea, but again due to financial constraints, she is n ot able to do so. We will discuss with Pulmonary.
[2017-05-17] MEDS: Furosemide 40 MG/4 ML VIAL SLOW IVP SCH (05:30)
[2017-05-17] MEDS: Levothyroxine Sodium 75 MCG TAB PO SCH (05:30)
[2017-05-17 05:31] LABS: #Eosinphils 0.1 thou/uL (0.0-0.7); #Lymphocytes 1.6 thou/uL (1.20-3.40); #Monocytes 0.6 thou/uL (0.11-0.59); #Neutrophils 1.7 thou/uL (1.40-6.50); %Basophils 0.6 % (0.0-1.0); %Eosinophils 1.4 % (0.0-10.0); %Lymphocytes 40.8 % (21.0-51.0); %Monocytes 14.3 % (0.0-10.0); Hematocrit 54.3 % (36.0-47.0); Mean Platelet Volume 12.6 fL (7.4-10.4); Red Blood Cell (RBC) Count 5.27 mill/uL (4.20-5.40)
[2017-05-17 05:42] LABS: BUN (Urea Nitrogen) 27 mg/dL (9.8-20.1); Calc. Creatinine Clearance 80 mL/min (70-130); Calcium 9.4 mg/dL (7.8-10.44); Estimated GFR-MDRD 72
[2017-05-17 05:52] LABS: Anion Gap 12 mmol/L (10-20); Chloride 95 mmol/L (98-107)
[2017-05-17 05:53] LABS: Carbon Dioxide 41 mmol/L (22-29)
[2017-05-17] MEDS: Mometasone/Formoterol 120 PUFF INHALER INH SCH ×2 (07:34→18:29)
[2017-05-17] MEDS: Famotidine 20 MG TAB PO SCH ×2 (09:01→20:22)
[2017-05-17] MEDS: Carvedilol 3.125 MG TAB PO SCH ×2 (09:01→20:22)
[2017-05-17] MEDS: Cyanocobalamin (Vitamin B-12) 1,000 MCG TAB PO SCH (09:02)
[2017-05-17] MEDS: Furosemide 20 MG TAB PO SCH ×2 (09:02→16:05)
[2017-05-17] MEDS: guaiFENesin ER 600 MG TAB PO SCH ×2 (09:02→20:22)
[2017-05-17] MEDS: Allopurinol 100 MG TAB PO SCH (09:02)
[2017-05-17] MEDS: Folic Acid 1 MG TAB PO SCH (09:02)
[2017-05-17] MEDS: Lisinopril 2.5 MG TAB PO SCH (09:03)
[2017-05-17] MEDS: Enoxaparin Sodium 40 MG/0.4 ML SYRINGE SC SCH (09:04)
--- NOTE | 2017-05-17 09:53 | PDOC.PN ---
- Subjective Encounter Start Date: 05/17/17 Encounter Start Time: 07:40 - Objective Resuscitation Status: Resuscitation Status FULL:Full Resuscitation MAR Reviewed: Yes Vital Signs & Weight: Vital Signs (12 hours) Temp Pulse Resp BP Pulse Ox 05/17/17 09:00 97.5 F L 75 16 90 L 05/17/17 08:58 97.5 F L 75 16 96/66 90 L 05/17/17 07:33 74 16 96 05/17/17 05:26 72 16 104/73 05/17/17 04:37 97.7 F 72 16 100/61 92 L 05/17/17 04:36 93 L 05/17/17 01:16 94 L 05/16/17 22:17 82 20 94 L Weight Weight 171 lb 1.6 oz I&O: 05/16/17 05/17/17 05/18/17 06:59 06:59 06:59 Intake Total 1224 874 Output Total 3000 2550 Balance -9698 -5625 Result Diagrams: 05/17/17 04:34 05/17/17 04:34 Additional Labs: Accuchecks 05/17/17 05/16/17 05/16/17 06:22 20:02 16:47 POC Glucose 91 120 H 86 05/16/17 11:23 POC Glucose 165 H EKG Reviewed by me: Yes (NSR) Phys Exam - Physical Examination Constitutional: NAD HEENT: PERRLA, moist MMs, sclera anicteric Neck: no JVD, supple Respiratory: no wheezing, no rhonchi reduced air entry Cardiovascular: RRR, no significant murmur, no rub Gastrointestinal: soft, non-tender, no distention, positive bowel sounds Musculoskeletal: pulses present, edema present Neurological: non-focal, normal sensation Lymphatic: no nodes Psychiatric: normal affect, A&O x 3 Skin: no rash, normal turgor Dx/Plan (1) Acute on chronic diastolic (congestive) heart failure Code(s): I50.33 - ACUTE ON CHRONIC DIASTOLIC (CONGESTIVE) HEART FAILURE Status : Acute (2) Acute on chronic respiratory failure with hypoxia and hypercapnia Code(s): J96.21 - ACUTE AND CHRONIC RESPIRATORY FAILURE WITH HYPOXIA; J96.22 - ACUTE AND CHRONIC RESPIRATORY FAILURE WITH HYPERCAPNIA Status: Acute (3) Anasarca Code(s): R60.1 - GENERALIZED EDEMA Status: Acute (4) COPD exacerbation Code(s): J44.1 - CHRONIC OBSTRUCTIVE PULMONARY DISEASE W (ACUTE) EXACERBATION Status: Acute (5) Hyperuricemia Code(s): E79.0 - HYPERURICEMIA W/O SIGNS OF INFLAM ARTHRIT AND TOPHACEOUS DIS Status: Acute (6) Hypomagnesemia Code(s): E83.42 - HYPOMAGNESEMIA Status: Acute (7) Compensated respiratory acidosis Code(s): E87.2 - ACIDOSIS Status: Chronic (8) Diabetes type 2, controlled Code(s): E11.9 - TYPE 2 DIABETES MELLITUS WITHOUT COMPLICATIONS Status: Chronic (9) Hypertension Code(s): I10 - ESSENTIAL (PRIMARY) HYPERTENSION Status: Chronic (10) Hypothyroidism Code(s): E03.9 - HYPOTHYROIDISM, UNSPECIFIED Status: Chronic (11) Macrocytosis Code(s): D75.89 - OTHER SPECIFIED DISEASES OF BLOOD AND BLOOD-FORMING ORGANS Status: Chronic (12) Tobacco abuse Code(s): Z72.0 - TOBACCO USE Status: Chronic (13) Severe tricuspid regurgitation Code(s): I07.1 - RHEUMATIC TRICUSPID INSUFFICIENCY Status: Acute - Plan cont current plan of care, respiratory therapy * will consult pulmonary today for possible core pulmonale * will need home oxygen on discharge * CTA is negative for PE * counselled to avoid smoking * medication reviewed as below * symptomatic treatment * change lasix PO. * RA, HIV ,HEP is negative but GARTH pending Review of Systems - Review of Systems ENT: negative: Ear Pain, Ear Discharge, Nose Pain, Nose Discharge, Nose Congestion, Mouth Pain, Mouth Swelling, Throat Pain, Throat Swelling, Other Respiratory: negative: Cough, Dry, Shortness of Breath, Hemoptysis, SOB with Excertion, Pleuritic Pain, Sputum, Wheezing Cardiovascular: negative: Chest Pain, Palpitations, Orthopnea, Paroxysmal Noc. Dyspnea, Edema, Light Headedness, Other Gastrointestinal: negative: Nausea, Vomiting, Abdominal Pain, Diarrhea, Constipation, Melena, Hematochezia, Other Genitourinary: negative: Dysuria, Frequency, Incontinence, Hematuria, Retention , Other Musculoskeletal: negative: Neck Pain, Shoulder Pain, Arm Pain, Back Pain, Hand Pain, Leg Pain, Foot Pain, Other Skin: negative: Rash, Lesions, Sharan, Bruising, Other - Medications/Allergies Allergies/Adverse Reactions: Allergies Allergy/AdvReac Type Severity Reaction Status Date / Time No Known Allergies Allergy Unverified 05/13/17 15:06 Medications: Current Medications Acetaminophen (Tylenol) 650 mg PO Q4H PRN PRN Reason: Headache/Fever or Pain Hydrocodone Bitart/Acetaminophen ([place] 5/325) 1 tab PO Q4H PRN PRN Reason: Moderate Pain (4-6) Al Hydroxide/Mg Hydroxide (Maalox) 30 ml PO Q6H PRN PRN Reason: Heartburn or Indigestion Last Admin: 05/14/17 21:28 Dose: 30 ml Albuterol/Ipratropium (Duoneb) 3 ml NEB [id number] [facility] Last Admin: 05/17/17 07:33 Dose: 3 ml Allopurinol (Zyloprim) 100 mg PO DAILY [facility] Last Admin: 05/17/17 09:02 Dose: 100 mg Artificial Tears (Tears Naturale) 0 drop EA EYE PRN PRN PRN Reason: Dry Eyes Aspirin (Aspirin Chewable) 81 mg PO DAILY [facility] Last Admin: 05/17/17 09:02 Dose: 81 mg Benzonatate (Tessalon) 100 mg PO Q4H PRN PRN Reason: Cough Carvedilol (Coreg) 3.125 mg PO BID [facility] Last Admin: 05/17/17 09:01 Dose: 3.125 mg Cyanocobalamin (Vitamin B-12) 1,000 mcg PO DAILY [facility] Last Admin: 05/17/17 09:02 Dose: 1,000 mcg Dextrose/Water (Dextrose 50%) 25 gm SLOW IVP PRN PRN PRN Reason: Hypoglycemia Enoxaparin Sodium (Lovenox) 40 mg SC 0900 [facility] Last Admin: 05/17/17 09:04 Dose: Not Given Famotidine (Pepcid) 20 mg PO BID [facility] Last Admin: 05/17/17 09:01 Dose: 20 mg Folic Acid (Folvite) 1 mg PO DAILY [facility] Last Admin: 05/17/17 09:02 Dose: 1 mg Furosemide (Lasix) 40 mg PO 0900,1400 [facility] Last Admin: 05/17/17 09:02 Dose: 40 mg Glucagon (Glucagon) 1 mg IM PRN PRN PRN Reason: Hypoglycemia Guaifenesin (Robitussin Sf) 200 mg PO Q4H PRN PRN Reason: Cough Guaifenesin (Mucinex) 600 mg PO Q12HR [facility] Last Admin: 05/17/17 09:02 Dose: 600 mg Hydralazine HCl (Apresoline) 10 mg SLOW IVP Q4H PRN PRN Reason: Systolic BP > 180 Dextrose/Water (D5w) 1,000 mls @ 0 mls/hr IV .Q0M PRN; As Directed PRN Reason: Hypoglycemia Insulin Human Lispro (Humalog) 0 units SC .MODERATE SLIDING SC PRN PRN Reason: Moderate Correctional Scale Insulin Human Lispro (Humalog) 0 units SC .BEDTIME SLIDING SC PRN PRN Reason: Bedtime Correctional Scale Levothyroxine Sodium (Synthroid) 75 mcg PO 0600 [facility] Last Admin: 05/17/17 05:30 Dose: 75 mcg Lisinopril (Zestril) 2.5 mg PO DAILY [facility] Last Admin: 05/17/17 09:03 Dose: Not Given Loperamide HCl (Imodium) 2 mg PO PRN PRN PRN Reason: Diarrhea/Loose Stools Loratadine (Claritin) 10 mg PO DAILYPRN PRN PRN Reason: Sinus Symptoms Magnesium Hydroxide (Milk Of Magnesium) 30 ml PO DAILYPRN PRN PRN Reason: Constipation Mineral Oil/White Petrolatum (Eucerin Cream) 0 gm TOP BIDPRN PRN PRN Reason: Dry Skin Mometasone Furoate/Formoterol Fumar (Dulera 200 Mcg/5 Mcg Inhaler) 2 puff INH BID-RT [facility] Last Admin: 05/17/17 07:34 Dose: 2 puff Nitroglycerin (Nitrostat) 0.4 mg SL Q5MIN PRN PRN Reason: Chest Pain Ondansetron HCl (Zofran Odt) 4 mg PO Q6H PRN PRN Reason: Nausea/Vomiting Ondansetron HCl (Zofran) 4 mg IVP Q6H PRN PRN Reason: Nausea/Vomiting Phenol (Chloraseptic Conger 180 Ml Bot) 0 ml PO PRN PRN PRN Reason: Sore Throat Senna (Senokot) 2 tab PO HSPRN PRN PRN Reason: Constipation Sodium Chloride ([place] Nasal Conger 0.65%) 0 ml EA NARE QIDPRN PRN PRN Reason: Nasal Congestion Sodium Chloride (Flush - Normal Saline) 10 ml IVF Q12HR [facility] Last Admin: 05/17/17 09:03 Dose: 10 ml Sodium Chloride (Flush - Normal Saline) 10 ml IVF PRN PRN PRN Reason: Saline Flush Last Admin: 05/17/17 05:30 Dose: 10 ml Zolpidem Tartrate (Ambien) 5 mg PO HSPRN PRN PRN Reason: Insomnia
--- NOTE | 2017-05-17 12:16 | PRG ---
DATE OF SERVICE: 05/17/2017 SUBJECTIVE: Mr. Scott appears to be stable. Her lower extremity edema has improved. A recent CT scan was negative for pulmonary embolus. PHYSICAL EXAMINATION: VITAL SIGNS: Blood pressure 96/66, pulse 75, temperature 97.5. LUNGS: Clear to auscultation. CARDIAC: Regular rate and rhythm. ABDOMEN: Distended. EXTREMITIES: 1+ pitting edema. IMPRESSION: Cor pulmonale. RECOMMENDATIONS: At this point, the etiology is unknown. This may be primary pulmonary hypertension versus a secondary cause such as obstructive sleep apnea. Her CT scan was negative for PE. Pulmona ry has been consulted for assistance. We would consider right and left heart catheterization if felt to be beneficial per Pulmonary. Essentially, I would like to have her followed up with the Pulmonar y Hypertension Clinic in [place], but due to resources she is unable to.
[2017-05-17 15:13] LABS: Amphetamine Not Detected (NotDetected); Methadone Not Detected (NotDetected); Methamphetamine Not Detected (NotDetected)
--- NOTE | 2017-05-17 15:48 | CON ---
DATE OF CONSULTATION: 05/17/2017 SERVICE: Pulmonary Medicine. REASON FOR CONSULTATION: Pulmonary hypertension. HISTORY OF PRESENT ILLNESS: The patient is a 56-year-old -[place] female with no significant past medical history other than PDA. 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 This was actually identified on the transesophageal echocardiogram by her d escription in 1997 in [place], [place]. At that time, she was told that she will live with thing fo r the rest of her life and should never cause her any issues. Either way, at this point, she present ed to the hospital with increasing lower extremity swelling and fatigue. She has desaturation at [facility]. Because of her lower extremity swelling, she started eating more salt and drinking more water thinking this would help flush things through her system. She developed massive edema of the bilate ral lower extremities. Because of the increasing fatigue and hypoxemia, she presented to the Emergen cy Department. She was admitted to the hospital with congestive heart failure. She has been diurese d over the last couple of days, but all imaging studies were consistent with no significant left-side d heart disease. She had massive right-sided heart dilation and pulmonary artery pressures that were elevated. There has been no mention so far this PDA. PAST MEDICAL HISTORY: 1. Type 2 diabetes mellitus. 2. Hypothyroidism, iatrogenic. 3. Hypertension. 4. COPD, possible. 5. Patent ductus arteriosus. PAST SURGICAL HISTORY: Thyroidectomy. SOCIAL HISTORY: She smokes a pack a day and has a [id number] history of smoking. She denies any a lcohol or illicit drug use. She has never used any IV drugs. 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 She has no expos ure to chemicals, dust asbestosis or tuberculosis. FAMILY HISTORY: Mom had lung cancer. Otherwise, noncontributory. ALLERGIES: No known drug allergies. MEDICATIONS: List of her inpatient medications were reviewed. No updates were made at this time. REVIEW OF SYSTEMS: General, head, ears, eyes, nose, throat, cardiovascular, respiratory, GI, , mus culoskeletal, neurologic and skin is negative except as mentioned in the HPI. PHYSICAL EXAMINATION: VITAL SIGNS: Afebrile, pulse 75, blood pressure 86/56, respirations 16, saturation 99% on 2 liters n mary anne cannula. On room air, her sats are 88%. HEENT: Normocephalic, atraumatic. Sclerae are white, conjunctivae pink. Oral and nasal mucosa is m oist without lesions. LUNGS: Excellent air entry. There is no prolonged expiratory phase. Dependent crackles are present . Rhonchi clear with cough. No wheezing. HEART: Normal rate, regular. ABDOMEN: Soft, nontender, and nondistended. Bowel sounds are positive. MUSCULOSKELETAL: No cyanosis or clubbing. There is diffuse 3+ pitting in the bilateral lower extrem ities and patient tells this is greatly improved compared to when she came into the hospital. GENITOURINARY: No Watkins. NEUROLOGIC: Grossly nonfocal. LABORATORY DATA: WBC 4.0, hemoglobin 16.9, platelets 97,000 and trending downward. Neutrophil count is normal. A pH 7.39, pCO2 59, and pO2 41. Bicarbonate 41 and trending upward. Basic metabolic pr ofile is otherwise unremarkable. TSH 1.6. Hemoglobin A1c 6.0. Blood sugars are stable. BNP 681. Troponin is negative x2. Liver function studies are essentially unremarkable presently except for bi lirubin that is minimally elevated at 1.5. Lipase was normal. Rheumatoid factor is negative. HIV i s negative. Hepatitis serologies are also unremarkable. IMAGIN. Chest x-ray demonstrates cardiomegaly. 2. Echocardiogram demonstrates a normal left ventricular function with mild concentric left ventricu lar hypertrophy. There is paradoxical motion of the interventricular septum with contraction. The r ight ventricle is clearly overloading the left ventricle. There is marked enlargement of the right a trium. Severe tricuspid regurgitation is present. The right ventricular systolic pressure is [address] of the chest demonstrates no evidence of a pulmonary embolism. There is massive overload of t he right atrium and right ventricle. The LV is small. There is significant reflux into the inferior vena cava. I do not see any contrast refluxing from pulmonary artery into the aorta. ASSESSMENT: 1. Pulmonary hypertension. 2. Chronic hypoxic and hypercapnic respiratory failure. 3. Patent ductus arteriosus, by history. PLAN: We will continue to diurese the patient until she gets a little closer to euvolemia. We may n eed to consider putting her on dopamine for a brief period of time. That being said, she seems to to lerate her current diuretic regimen. I do think a ZOHAIB is indicated to reevaluate this historical PDA that she notes. If she has it, and it is large, she may benefit from closure after right heart cath eterization. If on the other hand, she demonstrates a left to right shunt, all we would have is medi brando management moving forward. Either way, sleep study will be arranged in the outpatient setting. We will get a VQ scan and I will add ANCA. The rheumatoid factor and HIV were unremarkable. GARTH was already drawn, but my suspicion is that this will be unremarkable as she has no stigmata of connecti ve tissue disease processes. I have very clearly told the patient today that if we do not address he r pulmonary hypertension issue today, we may not have an opportunity to do so in the future. She und erstands that this is something that needs to be investigated today and over the next couple of month s in order to prevent further damage to the heart which is already fairly extensive.
--- NOTE | 2017-05-17 17:07 | NM ---
VQ SCAN: HISTORY: Chronic pulmonary hypertension. TECHNIQUE: A ventilation perfusion scan was performed using 12.8 mCi Xenon-133 by inhalation for the ventilation study followed by the intravenous administration of 6.2 mCi technetium-99m MAA for the perfusion sca n. FINDINGS: Correlation is made with chest radiograph from the same date. Inhomogeneous tracer distribution is seen in the lungs bilaterally on both ventilation and perfusion images with matched nonsegmental defects. A stripe sign is seen on the right. No mismatched, pleural based, wedge-shaped, segmental/subsegmental perfusion defects are seen. IMPRESSION: Low probability for pulmonary embolism. POS: [facility]
--- NOTE | 2017-05-17 17:08 | RAD ---
PA AND LATERAL CHEST: Date: 05/17/17 HISTORY: Chronic pulmonary hypertension. FINDINGS/IMPRESSION: Comparison made with exam of 09/16/09 and 05/13/17. The heart size is enlarged. Lungs are well expanded without confluent areas of consolidation, pneumot horaces, hans pulmonary edema, or large effusions. Small effusions may be present. POS: [facility]
[2017-05-18 05:06] LABS: #Basophils 0.1 thou/uL (0.0-0.2); #Eosinphils 0.1 thou/uL (0.0-0.7); #Lymphocytes 1.4 thou/uL (1.20-3.40); #Monocytes 0.5 thou/uL (0.11-0.59); #Neutrophils 1.5 thou/uL (1.40-6.50); %Basophils 1.6 % (0.0-1.0); %Eosinophils 1.9 % (0.0-10.0); %Lymphocytes 40.6 % (21.0-51.0); %Monocytes 13.3 % (0.0-10.0); Hematocrit 52.1 % (36.0-47.0); Mean Platelet Volume 12.4 fL (7.4-10.4); Red Blood Cell (RBC) Count 5.09 mill/uL (4.20-5.40); White Blood Cell (WBC) Count 3.5 thou/uL (4.8-10.8)
[2017-05-18] MEDS: Levothyroxine Sodium 75 MCG TAB PO SCH (05:14)
[2017-05-18 05:33] LABS: BUN (Urea Nitrogen) 26 mg/dL (9.8-20.1); Calc. Creatinine Clearance 101 mL/min (70-130); Calcium 9.2 mg/dL (7.8-10.44); Estimated GFR-MDRD Greater than 90
[2017-05-18 05:42] LABS: Anion Gap 13 mmol/L (10-20); Carbon Dioxide 38 mmol/L (22-29); Chloride 97 mmol/L (98-107)
[2017-05-18] MEDS: Mometasone/Formoterol 120 PUFF INHALER INH SCH ×2 (07:21→18:39)
[2017-05-18] MEDS: Carvedilol 3.125 MG TAB PO SCH ×2 (08:32→20:49)
[2017-05-18] MEDS: Furosemide 20 MG TAB PO SCH ×2 (08:32→14:24)
[2017-05-18] MEDS: Allopurinol 100 MG TAB PO SCH (08:32)
[2017-05-18] MEDS: Folic Acid 1 MG TAB PO SCH (08:32)
[2017-05-18] MEDS: Cyanocobalamin (Vitamin B-12) 1,000 MCG TAB PO SCH (08:32)
[2017-05-18] MEDS: Famotidine 20 MG TAB PO SCH ×2 (08:32→20:47)
[2017-05-18] MEDS: guaiFENesin ER 600 MG TAB PO SCH ×2 (08:32→20:47)
[2017-05-18] MEDS: Enoxaparin Sodium 40 MG/0.4 ML SYRINGE SC SCH (08:33)
[2017-05-18] MEDS: Lisinopril 2.5 MG TAB PO SCH (10:57)
--- NOTE | 2017-05-18 12:12 | PDOC.PN ---
- Subjective Encounter Start Date: 05/18/17 Encounter Start Time: 07:45 Patient seen and examined. No new complaints. No overnight events - Objective Resuscitation Status: Resuscitation Status FULL:Full Resuscitation MAR Reviewed: Yes Vital Signs & Weight: Vital Signs (12 hours) Temp Pulse Resp BP BP Pulse Ox 05/18/17 10:57 74 05/18/17 08:30 97.9 F 74 16 97 05/18/17 08:26 97.9 F 74 16 116/63 97 05/18/17 07:20 82 16 05/18/17 04:00 97.8 F 69 18 92/57 L 93 L Weight Weight 170 lb 3 oz I&O: 05/17/17 05/18/17 05/19/17 06:59 06:59 06:59 Intake Total 874 600 Output Total 2550 2400 Balance -1676 -1800 Result Diagrams: 05/18/17 04:27 05/18/17 04:27 Additional Labs: Accuchecks 05/18/17 05/17/17 05/17/17 06:05 20:26 16:46 POC Glucose 82 106 90 EKG Reviewed by me: Yes (NSR) Phys Exam - Physical Examination Constitutional: NAD HEENT: PERRLA, moist MMs, sclera anicteric Neck: no JVD, supple Respiratory: no wheezing, no rales, no rhonchi Cardiovascular: RRR, no significant murmur, no rub Gastrointestinal: soft, non-tender, no distention, positive bowel sounds Musculoskeletal: pulses present, edema present Neurological: non-focal, normal sensation Lymphatic: no nodes Psychiatric: normal affect, A&O x 3 Skin: no rash, normal turgor Dx/Plan (1) Acute on chronic diastolic (congestive) heart failure Code(s): I50.33 - ACUTE ON CHRONIC DIASTOLIC (CONGESTIVE) HEART FAILURE Status : Acute (2) Acute on chronic respiratory failure with hypoxia and hypercapnia Code(s): J96.21 - ACUTE AND CHRONIC RESPIRATORY FAILURE WITH HYPOXIA; J96.22 - ACUTE AND CHRONIC RESPIRATORY FAILURE WITH HYPERCAPNIA Status: Acute (3) Anasarca Code(s): R60.1 - GENERALIZED EDEMA Status: Acute (4) COPD exacerbation Code(s): J44.1 - CHRONIC OBSTRUCTIVE PULMONARY DISEASE W (ACUTE) EXACERBATION Status: Acute (5) Hyperuricemia Code(s): E79.0 - HYPERURICEMIA W/O SIGNS OF INFLAM ARTHRIT AND TOPHACEOUS DIS Status: Acute (6) Hypomagnesemia Code(s): E83.42 - HYPOMAGNESEMIA Status: Acute (7) Compensated respiratory acidosis Code(s): E87.2 - ACIDOSIS Status: Chronic (8) Diabetes type 2, controlled Code(s): E11.9 - TYPE 2 DIABETES MELLITUS WITHOUT COMPLICATIONS Status: Chronic (9) Hypertension Code(s): I10 - ESSENTIAL (PRIMARY) HYPERTENSION Status: Chronic (10) Hypothyroidism Code(s): E03.9 - HYPOTHYROIDISM, UNSPECIFIED Status: Chronic (11) Macrocytosis Code(s): D75.89 - OTHER SPECIFIED DISEASES OF BLOOD AND BLOOD-FORMING ORGANS Status: Chronic (12) Tobacco abuse Code(s): Z72.0 - TOBACCO USE Status: Chronic (13) Severe tricuspid regurgitation Code(s): I07.1 - RHEUMATIC TRICUSPID INSUFFICIENCY Status: Acute (14) Pulmonary hypertension Code(s): I27.20 - PULMONARY HYPERTENSION, UNSPECIFIED Status: Acute - Plan cont current plan of care, respiratory therapy * today PFT * continue diuresis until euvolemic * now her oxygen saturation is improved * pulmonary following * will ask pulmonary if ZOHAIB needed this admission or not * medication reviewed as below * symptomatic treatment. Review of Systems - Review of Systems Constitutional: negative: Fever, Chills, Sweats, Weakness, Malaise, Other Eyes: negative: Pain, Vision Change, Conjunctivae Inflammation, Eyelid Inflammation, Redness, Other ENT: negative: Ear Pain, Ear Discharge, Nose Pain, Nose Discharge, Nose Congestion, Mouth Pain, Mouth Swelling, Throat Pain, Throat Swelling, Other Respiratory: negative: Cough, Dry, Shortness of Breath, Hemoptysis, SOB with Excertion, Pleuritic Pain, Sputum, Wheezing Cardiovascular: Edema. negative: Chest Pain, Palpitations, Orthopnea, Paroxysmal Noc. Dyspnea, Light Headedness, Other Gastrointestinal: negative: Nausea, Vomiting, Abdominal Pain, Diarrhea, Constipation, Melena, Hematochezia, Other Genitourinary: negative: Dysuria, Frequency, Incontinence, Hematuria, Retention , Other Musculoskeletal: negative: Neck Pain, Shoulder Pain, Arm Pain, Back Pain, Hand Pain, Leg Pain, Foot Pain, Other - Medications/Allergies Allergies/Adverse Reactions: Allergies Allergy/AdvReac Type Severity Reaction Status Date / Time No Known Allergies Allergy Unverified 05/13/17 15:06 Medications: Current Medications Acetaminophen (Tylenol) 650 mg PO Q4H PRN PRN Reason: Headache/Fever or Pain Hydrocodone Bitart/Acetaminophen ([place] 5/325) 1 tab PO Q4H PRN PRN Reason: Moderate Pain (4-6) Al Hydroxide/Mg Hydroxide (Maalox) 30 ml PO Q6H PRN PRN Reason: Heartburn or Indigestion Last Admin: 05/14/17 21:28 Dose: 30 ml Albuterol/Ipratropium (Duoneb) 3 ml NEB [id number] [facility] Last Admin: 05/18/17 07:20 Dose: 3 ml Allopurinol (Zyloprim) 100 mg PO DAILY [facility] Last Admin: 05/18/17 08:32 Dose: 100 mg Artificial Tears (Tears Naturale) 0 drop EA EYE PRN PRN PRN Reason: Dry Eyes Aspirin (Aspirin Chewable) 81 mg PO DAILY [facility] Last Admin: 05/18/17 08:32 Dose: 81 mg Benzonatate (Tessalon) 100 mg PO Q4H PRN PRN Reason: Cough Carvedilol (Coreg) 3.125 mg PO BID [facility] Last Admin: 05/18/17 08:32 Dose: 3.125 mg Cyanocobalamin (Vitamin B-12) 1,000 mcg PO DAILY [facility] Last Admin: 05/18/17 08:32 Dose: 1,000 mcg Dextrose/Water (Dextrose 50%) 25 gm SLOW IVP PRN PRN PRN Reason: Hypoglycemia Enoxaparin Sodium (Lovenox) 40 mg SC 0900 [facility] Last Admin: 05/18/17 08:33 Dose: Not Given Famotidine (Pepcid) 20 mg PO BID [facility] Last Admin: 05/18/17 08:32 Dose: 20 mg Folic Acid (Folvite) 1 mg PO DAILY [facility] Last Admin: 05/18/17 08:32 Dose: 1 mg Furosemide (Lasix) 40 mg PO 0900,1400 [facility] Last Admin: 05/18/17 08:32 Dose: 40 mg Glucagon (Glucagon) 1 mg IM PRN PRN PRN Reason: Hypoglycemia Guaifenesin (Robitussin Sf) 200 mg PO Q4H PRN PRN Reason: Cough Guaifenesin (Mucinex) 600 mg PO Q12HR [facility] Last Admin: 05/18/17 08:32 Dose: 600 mg Hydralazine HCl (Apresoline) 10 mg SLOW IVP Q4H PRN PRN Reason: Systolic BP > 180 Dextrose/Water (D5w) 1,000 mls @ 0 mls/hr IV .Q0M PRN; As Directed PRN Reason: Hypoglycemia Insulin Human Lispro (Humalog) 0 units SC .MODERATE SLIDING SC PRN PRN Reason: Moderate Correctional Scale Insulin Human Lispro (Humalog) 0 units SC .BEDTIME SLIDING SC PRN PRN Reason: Bedtime Correctional Scale Levothyroxine Sodium (Synthroid) 75 mcg PO 0600 [facility] Last Admin: 05/18/17 05:14 Dose: 75 mcg Lisinopril (Zestril) 2.5 mg PO DAILY [facility] Last Admin: 05/18/17 10:57 Dose: Not Given Loperamide HCl (Imodium) 2 mg PO PRN PRN PRN Reason: Diarrhea/Loose Stools Loratadine (Claritin) 10 mg PO DAILYPRN PRN PRN Reason: Sinus Symptoms Magnesium Hydroxide (Milk Of Magnesium) 30 ml PO DAILYPRN PRN PRN Reason: Constipation Mineral Oil/White Petrolatum (Eucerin Cream) 0 gm TOP BIDPRN PRN PRN Reason: Dry Skin Mometasone Furoate/Formoterol Fumar (Dulera 200 Mcg/5 Mcg Inhaler) 2 puff INH BID-RT [facility] Last Admin: 05/18/17 07:21 Dose: 2 puff Nitroglycerin (Nitrostat) 0.4 mg SL Q5MIN PRN PRN Reason: Chest Pain Ondansetron HCl (Zofran Odt) 4 mg PO Q6H PRN PRN Reason: Nausea/Vomiting Ondansetron HCl (Zofran) 4 mg IVP Q6H PRN PRN Reason: Nausea/Vomiting Phenol (Chloraseptic [place] 180 Ml Bot) 0 ml PO PRN PRN PRN Reason: Sore Throat Senna (Senokot) 2 tab PO HSPRN PRN PRN Reason: Constipation Sodium Chloride ([place] Nasal [place] 0.65%) 0 ml EA NARE QIDPRN PRN PRN Reason: Nasal Congestion Sodium Chloride (Flush - Normal Saline) 10 ml IVF Q12HR [facility] Last Admin: 05/18/17 08:33 Dose: 10 ml Sodium Chloride (Flush - Normal Saline) 10 ml IVF PRN PRN PRN Reason: Saline Flush Last Admin: 05/17/17 05:30 Dose: 10 ml Zolpidem Tartrate (Ambien) 5 mg PO HSPRN PRN PRN Reason: Insomnia
[2017-05-18] MEDS ORDERED: Potassium Chloride 20 MEQ TAB PO SCH (16:30)
--- NOTE | 2017-05-18 16:58 | PRG ---
DATE OF SERVICE: 05/18/2017 SERVICE: Pulmonary Medicine. INTERVAL HISTORY: The patient is doing well from a breathing standpoint. Her lower extremity swelling continues to improve. This was actually the reason that she came here. As such, she is hoping to be able to get out of the hospital soon. Otherwise, there has been no interval change to her condition. No overnight events. PHYSICAL EXAMINATION: VITAL SIGNS: Afebrile, pulse 71, blood pressure 101/66, respirations 17, saturation 97% on 2 L nasal cannula. GENERAL: Patient is awake, alert, in no apparent distress. HEENT: Normocephalic, atraumatic. Sclerae are white, conjunctivae pink. Oral and nasal mucosa is moist without lesions. LUNGS: Decreased air entry. Dependent crackles are minimal. HEART: Normal rate, regular. ABDOMEN: Soft, nontender, nondistended. Bowel sounds positive. MUSCULOSKELETAL: No cyanosis or clubbing. There is 2-3+ pitting in the bilateral lower extremities, but multiple skin folds are showing up and wrinkles suggestive of a significant reduction in that swelling. LABORATORY DATA: WBC 3.5, hemoglobin 16.2, platelets 83,000 roughly stable. Basic metabolic profile is essentially unremarkable except for potassium of 3.5. Bicarbonate 38, which is likely her baseline. Creatinine 0.78. Urine drug screen is positive for cannabinoids, but nothing else. GARTH screen is normal. Rheumatoid factor is negative. HIV is negative. IMAGING: V/Q scan demonstrates no evidence of pulmonary embolism. There is no moth-eaten appearance. ASSESSMENT: 1. Pulmonary hypertension. 2. Chronic hypoxic and hypercapnic respiratory failure. 3. Chronic obstructive pulmonary disease without current exacerbation. 4. Patent ductus arteriosus, by history. PLAN: All of her serologies are negative. ANCA are currently pending, but my suspicion is that these are also going to be unremarkable given that she has no other stigmata of vascular disease. We will continue diuresing her to euvolemia. A ZOHAIB may be considered to evaluate the PDA and determine what the direction of flow is: Pulmonary Critical Care will continue to follow. Potassium will be replaced today. MTDD
[2017-05-19] MEDS: Levothyroxine Sodium 75 MCG TAB PO SCH (06:25)
[2017-05-19] MEDS: Mometasone/Formoterol 120 PUFF INHALER INH SCH ×2 (08:48→19:00)
[2017-05-19] MEDS: Famotidine 20 MG TAB PO SCH ×2 (09:44→21:26)
[2017-05-19] MEDS: Lisinopril 2.5 MG TAB PO SCH (09:44)
[2017-05-19] MEDS: Carvedilol 3.125 MG TAB PO SCH ×2 (09:44→21:28)
[2017-05-19] MEDS: guaiFENesin ER 600 MG TAB PO SCH ×2 (09:44→21:26)
[2017-05-19] MEDS: Cyanocobalamin (Vitamin B-12) 1,000 MCG TAB PO SCH (09:45)
[2017-05-19] MEDS: Folic Acid 1 MG TAB PO SCH (09:45)
[2017-05-19] MEDS: Allopurinol 100 MG TAB PO SCH (09:45)
[2017-05-19] MEDS: Furosemide 20 MG TAB PO SCH ×2 (09:45→14:30)
[2017-05-19] MEDS: Enoxaparin Sodium 40 MG/0.4 ML SYRINGE SC SCH (09:50)
--- NOTE | 2017-05-19 11:13 | PDOC.PN ---
- Subjective Encounter Start Date: 05/19/17 Encounter Start Time: 08:15 Patient seen and examined. No new complaints. No overnight events - Objective Resuscitation Status: Resuscitation Status FULL:Full Resuscitation MAR Reviewed: Yes Vital Signs & Weight: Vital Signs (12 hours) Temp Pulse Resp BP BP Pulse Ox 05/19/17 09:44 78 97/56 L 05/19/17 08:46 78 16 92 L 05/19/17 04:00 97.4 F L 69 20 99/56 L 97 05/19/17 02:39 92 L 05/19/17 00:00 97.9 F 72 20 101/55 L 92 L Weight Weight 160 lb 6 oz I&O: 05/18/17 05/19/17 05/20/17 06:59 06:59 06:59 Intake Total 600 600 Output Total 2400 2575 -1799 Result Diagrams: 05/18/17 04:27 05/18/17 04:27 Additional Labs: Accuchecks 05/19/17 05/18/17 05/18/17 05:46 19:55 17:00 POC Glucose 95 112 H 97 05/18/17 11:26 POC Glucose 109 EKG Reviewed by me: Yes (nsr) Phys Exam - Physical Examination Constitutional: NAD HEENT: PERRLA, moist MMs, sclera anicteric Neck: no JVD, supple Respiratory: no wheezing, no rales, no rhonchi Cardiovascular: RRR, no significant murmur, no rub Gastrointestinal: soft, non-tender, no distention, positive bowel sounds Musculoskeletal: pulses present, edema present Neurological: non-focal, normal sensation Psychiatric: normal affect, A&O x 3 Skin: no rash, normal turgor Dx/Plan (1) Acute on chronic diastolic (congestive) heart failure Code(s): I50.33 - ACUTE ON CHRONIC DIASTOLIC (CONGESTIVE) HEART FAILURE Status : Acute (2) Acute on chronic respiratory failure with hypoxia and hypercapnia Code(s): J96.21 - ACUTE AND CHRONIC RESPIRATORY FAILURE WITH HYPOXIA; J96.22 - ACUTE AND CHRONIC RESPIRATORY FAILURE WITH HYPERCAPNIA Status: Acute (3) Anasarca Code(s): R60.1 - GENERALIZED EDEMA Status: Acute (4) COPD exacerbation Code(s): J44.1 - CHRONIC OBSTRUCTIVE PULMONARY DISEASE W (ACUTE) EXACERBATION Status: Acute (5) Hyperuricemia Code(s): E79.0 - HYPERURICEMIA W/O SIGNS OF INFLAM ARTHRIT AND TOPHACEOUS DIS Status: Acute (6) Hypomagnesemia Code(s): E83.42 - HYPOMAGNESEMIA Status: Acute (7) Compensated respiratory acidosis Code(s): E87.2 - ACIDOSIS Status: Chronic (8) Diabetes type 2, controlled Code(s): E11.9 - TYPE 2 DIABETES MELLITUS WITHOUT COMPLICATIONS Status: Chronic (9) Hypertension Code(s): I10 - ESSENTIAL (PRIMARY) HYPERTENSION Status: Chronic (10) Hypothyroidism Code(s): E03.9 - HYPOTHYROIDISM, UNSPECIFIED Status: Chronic (11) Macrocytosis Code(s): D75.89 - OTHER SPECIFIED DISEASES OF BLOOD AND BLOOD-FORMING ORGANS Status: Chronic (12) Tobacco abuse Code(s): Z72.0 - TOBACCO USE Status: Chronic (13) Severe tricuspid regurgitation Code(s): I07.1 - RHEUMATIC TRICUSPID INSUFFICIENCY Status: Acute (14) Pulmonary hypertension Code(s): I27.20 - PULMONARY HYPERTENSION, UNSPECIFIED Status: Acute - Plan cont current plan of care * continue diuresis * spoke with cardiology, plan for ZOHAIB tomorrow to rule out PDA * will keep NPO after midnight. * medication reviewed as below * symptomatic treatment * possible discharge after ZOHAIB tomorrow Review of Systems - Review of Systems ENT: negative: Ear Pain, Ear Discharge, Nose Pain, Nose Discharge, Nose Congestion, Mouth Pain, Mouth Swelling, Throat Pain, Throat Swelling, Other Respiratory: negative: Cough, Dry, Shortness of Breath, Hemoptysis, SOB with Excertion, Pleuritic Pain, Sputum, Wheezing Cardiovascular: negative: Chest Pain, Palpitations, Orthopnea, Paroxysmal Noc. Dyspnea, Edema, Light Headedness, Other Gastrointestinal: negative: Nausea, Vomiting, Abdominal Pain, Diarrhea, Constipation, Melena, Hematochezia, Other Genitourinary: negative: Dysuria, Frequency, Incontinence, Hematuria, Retention , Other Musculoskeletal: negative: Neck Pain, Shoulder Pain, Arm Pain, Back Pain, Hand Pain, Leg Pain, Foot Pain, Other Skin: negative: Rash, Lesions, Sharan, Bruising, Other - Medications/Allergies Allergies/Adverse Reactions: Allergies Allergy/AdvReac Type Severity Reaction Status Date / Time No Known Allergies Allergy Unverified 05/13/17 15:06 Medications: Current Medications Acetaminophen (Tylenol) 650 mg PO Q4H PRN PRN Reason: Headache/Fever or Pain Hydrocodone Bitart/Acetaminophen ([place] 5/325) 1 tab PO Q4H PRN PRN Reason: Moderate Pain (4-6) Al Hydroxide/Mg Hydroxide (Maalox) 30 ml PO Q6H PRN PRN Reason: Heartburn or Indigestion Last Admin: 05/14/17 21:28 Dose: 30 ml Albuterol/Ipratropium (Duoneb) 3 ml NEB [id number] [facility] Last Admin: 05/19/17 08:46 Dose: 3 ml Allopurinol (Zyloprim) 100 mg PO DAILY [facility] Last Admin: 05/19/17 09:45 Dose: 100 mg Artificial Tears (Tears Naturale) 0 drop EA EYE PRN PRN PRN Reason: Dry Eyes Aspirin (Aspirin Chewable) 81 mg PO DAILY [facility] Last Admin: 05/19/17 09:44 Dose: 81 mg Benzonatate (Tessalon) 100 mg PO Q4H PRN PRN Reason: Cough Carvedilol (Coreg) 3.125 mg PO BID [facility] Last Admin: 05/19/17 09:44 Dose: 3.125 mg Cyanocobalamin (Vitamin B-12) 1,000 mcg PO DAILY [facility] Last Admin: 05/19/17 09:45 Dose: 1,000 mcg Dextrose/Water (Dextrose 50%) 25 gm SLOW IVP PRN PRN PRN Reason: Hypoglycemia Enoxaparin Sodium (Lovenox) 40 mg SC 0900 [facility] Last Admin: 05/19/17 09:50 Dose: 40 mg Famotidine (Pepcid) 20 mg PO BID [facility] Last Admin: 05/19/17 09:44 Dose: 20 mg Folic Acid (Folvite) 1 mg PO DAILY [facility] Last Admin: 05/19/17 09:45 Dose: 1 mg Furosemide (Lasix) 40 mg PO 0900,1400 [facility] Last Admin: 05/19/17 09:45 Dose: 40 mg Glucagon (Glucagon) 1 mg IM PRN PRN PRN Reason: Hypoglycemia Guaifenesin (Robitussin Sf) 200 mg PO Q4H PRN PRN Reason: Cough Guaifenesin (Mucinex) 600 mg PO Q12HR [facility] Last Admin: 05/19/17 09:44 Dose: 600 mg Hydralazine HCl (Apresoline) 10 mg SLOW IVP Q4H PRN PRN Reason: Systolic BP > 180 Dextrose/Water (D5w) 1,000 mls @ 0 mls/hr IV .Q0M PRN; As Directed PRN Reason: Hypoglycemia Insulin Human Lispro (Humalog) 0 units SC .MODERATE SLIDING SC PRN PRN Reason: Moderate Correctional Scale Insulin Human Lispro (Humalog) 0 units SC .BEDTIME SLIDING SC PRN PRN Reason: Bedtime Correctional Scale Levothyroxine Sodium (Synthroid) 75 mcg PO 0600 [facility] Last Admin: 05/19/17 06:25 Dose: 75 mcg Lisinopril (Zestril) 2.5 mg PO DAILY [facility] Last Admin: 05/19/17 09:44 Dose: 2.5 mg Loperamide HCl (Imodium) 2 mg PO PRN PRN PRN Reason: Diarrhea/Loose Stools Loratadine (Claritin) 10 mg PO DAILYPRN PRN PRN Reason: Sinus Symptoms Magnesium Hydroxide (Milk Of Magnesium) 30 ml PO DAILYPRN PRN PRN Reason: Constipation Mineral Oil/White Petrolatum (Eucerin Cream) 0 gm TOP BIDPRN PRN PRN Reason: Dry Skin Mometasone Furoate/Formoterol Fumar (Dulera 200 Mcg/5 Mcg Inhaler) 2 puff INH BID-RT [facility] Last Admin: 05/19/17 08:48 Dose: 2 puff Nitroglycerin (Nitrostat) 0.4 mg SL Q5MIN PRN PRN Reason: Chest Pain Ondansetron HCl (Zofran Odt) 4 mg PO Q6H PRN PRN Reason: Nausea/Vomiting Ondansetron HCl (Zofran) 4 mg IVP Q6H PRN PRN Reason: Nausea/Vomiting Phenol (Chloraseptic [place] 180 Ml Bot) 0 ml PO PRN PRN PRN Reason: Sore Throat Senna (Senokot) 2 tab PO HSPRN PRN PRN Reason: Constipation Sodium Chloride ([place] Nasal [place] 0.65%) 0 ml EA NARE QIDPRN PRN PRN Reason: Nasal Congestion Sodium Chloride (Flush - Normal Saline) 10 ml IVF Q12HR [facility] Last Admin: 05/18/17 20:54 Dose: 10 ml Sodium Chloride (Flush - Normal Saline) 10 ml IVF PRN PRN PRN Reason: Saline Flush Last Admin: 05/17/17 05:30 Dose: 10 ml Zolpidem Tartrate (Ambien) 5 mg PO HSPRN PRN PRN Reason: Insomnia
--- NOTE | 2017-05-19 21:25 | PRG ---
DATE OF SERVICE: 05/19/2017 SERVICE: Pulmonary Medicine. INTERVAL HISTORY: The patient is doing really well from a respiratory standpoint. Lower extremity s welling is much improved. We did get her the results of her PFTs yesterday. She does have fairly si gnificant COPD. That being said, diffusing capacity is normal. She denies any shortness of breath o r cough. Her dyspnea is back to baseline. PHYSICAL EXAMINATION: VITAL SIGNS: Afebrile, pulse 72, blood pressure 106/63, respirations 16, saturation 92% on 2 liters nasal cannula. HEENT: Normocephalic, atraumatic. Sclerae are white, conjunctivae pink. Oral and nasal mucosa is m oist without lesions. LUNGS: Decent air entry. Dependent crackles are present. There is minimal prolonged expiratory pha se. I do not appreciate any wheezing. HEART: Normal rate, regular. ABDOMEN: Soft, nontender, nondistended. Bowel sounds positive. MUSCULOSKELETAL: No cyanosis or clubbing. There is 1+ pitting in the bilateral lower extremities, w hich is drastically improved. GENITOURINARY: No Watkins. NEUROLOGIC: Grossly nonfocal. LABORATORY DATA: WBC 3.5, hemoglobin 16.2, platelets are 83,000 and dropping. PH 7.39, pCO2 of 60, pO2 of 41 on room air. Blood sugars ranged from 97-112. Toxicology was positive for cannabinoids. GARTH, rheumatoid factor negative. HIV is negative. Ankles are currently pending. IMAGING: Pulmonary function studies demonstrated severe obstructive airflow limitation. The lung vo lumes and diffusion capacity are actually normal. ASSESSMENT: 1. Pulmonary hypertension. 2. Chronic hypoxic and hypercapnic respiratory failure. 3. Patent ductus arteriosus, by history. PLAN: VQ scan, and all serologies are currently negative. ANCA is pending. Her pulmonary function studies are significant for moderately severe obstructive lung disease. In the setting of being volu me overloaded, I am not certain whether or not this is clinically significant. It is odd that her di ffusion capacity; however, is normal. This would suggest that she has high cardiac output state, par ticularly because she has a little bit of an infiltrate, and findings consistent with mild emphysema. ZOHAIB is going to be performed tomorrow morning to determine whether or not the patient has a PDA and if present, what direction of the flow is. Ultimately, the patient is going to require right heart catheterization, but I would like this to be performed at pulmonary hypertension center if that can b e arranged in this nonfunded patient. Pulmonary will continue to follow.
--- NOTE | 2017-05-19 21:36 | PRG ---
DATE OF SERVICE: 05/19/2017 SUBJECTIVE: Ms. Scott's status is improved. She has less shortness of breath. She appears more e uvolemic. OBJECTIVE: VITAL SIGNS: Blood pressure 101/55, pulse 72, and temperature afebrile. LUNGS: Clear to auscultation. HEART: Regular rate and rhythm. ABDOMEN: Distended. EXTREMITIES: No edema. PERTINENT LABORATORY DATA: Hemoglobin 16.2. IMPRESSION: 1. Right sided failure. 2. Pulmonary hypertension. RECOMMENDATION: I had a long discussion with Dr. Esequiel Salter today. There is concern for a quest ionable PDA. I tried to ask the patient where the procedure was performed and when. She could not r ecall. She states it was done in [place] but could not recall the hospital. She was in [facility] at that time. At this point, seems reasonable to proceed with a ZOHAIB to assess for PDA. I disc ussed the procedure in full detail with Ms. Scott. Risks included, but not limited to damage to te eth, mouth, back of the throat, damage to esophagus as well as as well as need for emergency surgery. All questions were answered given the above, the patient agreed to proceed above procedure.
[2017-05-20 04:45] VITALS: TEMP 98
[2017-05-20] MEDS: Levothyroxine Sodium 75 MCG TAB PO SCH (05:59)
[2017-05-20] MEDS: Mometasone/Formoterol 120 PUFF INHALER INH SCH (08:02)
[2017-05-20] MEDS ORDERED: Diprivan 0 ML ONE (08:32)
[2017-05-20] MEDS ORDERED: Diprivan 20 ML ONE (08:54)
--- NOTE | 2017-05-20 10:26 | OP ---
DATE OF PROCEDURE: 05/20/2017 PREPROCEDURE DIAGNOSIS: Pulmonary hypertension. POST-PROCEDURE DIAGNOSIS: Severe tricuspid regurgitation. PROCEDURE: ZOHAIB. The patient was consented for the procedure. Propofol used for conscious sedation. The probe passed easily in the esophagus. FINDINGS: Overall LDM 50-55%. No masses, vegetations or shunt present. Left atrium appeared small and likely related to RV pressure overload. No shunts are noted. The right ventricle appears smalle r than on recent transthoracic echocardiogram. The pulmonic valve is well visualized. No PDA presen t. Mild PI present. There is severe TR noted with no coaptation of the tricuspid valve. Severe tri cuspid regurgitation with markedly enlarged right atrium. No shunts or masses are present. No right to left shunting noted. The aorta does have mild to moderate atherosclerosis with no shunts noted. IMPRESSION: 1. Severe tricuspid regurgitation with non-coaptation of the tricuspid valve. 2. Markedly enlarged right atrium. 3. Mild PI, trace MR. 4. No masses, shunts or vegetations present.
[2017-05-20] MEDS: Famotidine 20 MG TAB PO SCH (10:40)
[2017-05-20] MEDS: Cyanocobalamin (Vitamin B-12) 1,000 MCG TAB PO SCH (10:40)
[2017-05-20] MEDS: guaiFENesin ER 600 MG TAB PO SCH (10:40)
[2017-05-20] MEDS: Carvedilol 3.125 MG TAB PO SCH (10:40)
[2017-05-20] MEDS: Allopurinol 100 MG TAB PO SCH (10:40)
[2017-05-20] MEDS: Lisinopril 2.5 MG TAB PO SCH (10:41)
[2017-05-20] MEDS: Furosemide 20 MG TAB PO SCH ×2 (10:41→13:54)
[2017-05-20] MEDS: Folic Acid 1 MG TAB PO SCH (10:41)
[2017-05-20 10:42] VITALS: BP 113/63
[2017-05-20] MEDS: Enoxaparin Sodium 40 MG/0.4 ML SYRINGE SC SCH (10:43)
--- NOTE | 2017-05-20 11:24 | DIS ---
DATE OF ADMISSION: 05/13/2017 DATE OF DISCHARGE: 05/20/2017 PRIMARY CARE PHYSICIAN: [facility]. DISCHARGE DISPOSITION: Home. PRIMARY DISCHARGE DIAGNOSES: 1. Acute on chronic diastolic heart failure. 2. Severe tricuspid regurgitation with right-sided heart failure and anasarca due to problem #1. 3. Acute on chronic respiratory failure with hypoxia and hypercapnia. 4. Chronic obstructive pulmonary disease exacerbation. 5. Hypouricemia. 6. Hypomagnesemia. 7. Pulmonary hypertension. 8. Compensated respiratory acidosis. SECONDARY DISCHARGE DIAGNOSES: Diabetes type 2, hypertension, hypothyroidism, macrocytosis, tobacco abuse disorder. PRIMARY PROCEDURE/OPERATION: Transesophageal echocardiography showed severe tricuspid regurgitation. Right atrium enlargement. No mass, shunt or vegetations found. Chest x-ray showed no acute cardio megaly. Echocardiography showed EF 50-55%, severe tricuspid regurgitation. CT angio was negative fo r pulmonary embolism. Ventilation perfusion study showed low probability of PE. Pulmonary function test was done during this admission. SIGNIFICANT LABS: WBC 3.5, hemoglobin 16.2, platelet 83. A pCO2 of 41.3, pO2 of 79.0, pH 7.39. Sod ium 144, potassium 3.5, BUN 26, creatinine 0.78, calcium 9.2, AST 30, ALT 26, alkaline phosphatase 11 5, albumin 2.9. Cardiac enzymes negative. BNP 681. Urine drug screen positive for cannabinoids. R heumatoid factor negative. GARTH negative, hepatitis and HIV negative. DISCHARGE MEDICATIONS: Allopurinol 100 mg p.o. daily, aspirin 81 mg p.o. daily, Coreg 3.125 mg p.o. b.i.d., vitamin B12 1000 mcg p.o. daily, Pepcid 20 mg p.o. b.i.d., folic acid 1 mg p.o. daily, Lasix 40 mg p.o. b.i.d., Synthroid 75 mcg p.o. daily, lisinopril 2.5 mg p.o. daily, metformin 500 mg p.o. d aily and Dulera 2 puffs inhalation b.i.d. CONTRAINDICATIONS: None. CODE STATUS: FULL CODE. INPATIENT CONSULTANTS: Dr. Rodriguez was consulted for cardiac failure. Dr. Salter was consulted f or pulmonary hypertension. TEST RESULTS PENDING ON DISCHARGE: None. ALLERGIES: No known drug allergies. DISCHARGE PLAN: Post hospital, the patient is advised to follow up with Dr. Salter for outpatient s leep study evaluation and pulmonary hypertension. The patient is also advised to follow up with [facility]. HOSPITAL COURSE: A 56-year-old female who was admitted by me on 05/13/2017. Please see my H&P for f urther details. She came to the emergency room for evaluation of increasing bilateral lower extremit y edema as well as abdominal distention. She has a right-sided heart failure. She has a heavy smoki ng history and she was hypoxic on arrival. We suspected COPD exacerbation with acute hypoxic and hyp ercapnic respiratory failure based on ABG. Patient was admitted in telemetry floor. We provided cou nseling to avoid smoking. The patient had a predominantly right-sided heart failure. We did echocardiography and confirmed wit h severe tricuspid regurgitation, predominantly enlarged right-sided cardiac chamber. This patient w as treated with IV Lasix with significant improvement in her edema. She was also treated for COPD while in hospital with steroid initially and Dulera as well as DuoNeb t herapy. She was initially requiring oxygen, but by the time of discharge, her oxygen saturation impr jasmin. We advised this patient to follow up with insurance collector to determine outpatient assessment for oxygen as well as sleep study. While in hospital, we found that she was having pulmonary hypertension and that is why Dr. Salter re commended to rule out patent ductus arteriosus and that is why we did a transesophageal echocardiogra phy, but that was unremarkable. At this point, the patient needs diuretic therapy and outpatient followup. She is now almost euvolem ic. We provided necessary patient education about fluid restriction and dietary restriction for macr ocytosis. We started on folic acid and vitamin B12 therapy. This patient is noncompliant with treat ment and diet prior to arrival to the hospital and we provided counseling to avoid excessive salt as well as fluid restriction discussed with the patient as well. The patient is given above-mentioned m edication while in hospital. We titrated her medication as above. The patient is seen and examined at bedside today. All review of systems reviewed with her and negative. PHYSICAL EXAMINATION: VITAL SIGNS: Currently, temperature 98.0, pulse 71, blood pressure 113/63, saturation 100% on 2 lite rs oxygen 93% on room air. Weight 163 pounds. GENERAL: The patient is currently alert, awake, no obvious acute distress. HEAD: Normocephalic, atraumatic. EYES: Pupils round, reactive to light. Extraocular muscles intact. ENT: Oropharynx within normal limits. Moist mucous membranes. No oral lesions. No pharyngeal eryt ester, no exudate. NECK: Supple. No obvious JVD. LUNGS: Clear to auscultation without any rhonchi or rales. CARDIAC: S1, S2 regular without any murmurs. ABDOMEN: Soft and benign. EXTREMITIES: Trace bilateral lower extremity edema noted. NEUROLOGIC: Nonfocal examination. All review of systems was reviewed with her and negative. All new medication prescriptions sent to h er pharmacy. Total time spent on discharge day 31 minutes.
--- NOTE | 2017-05-20 13:34 | PRG ---
DATE OF SERVICE: 07/21/2016 SERVICE: Pulmonary Medicine INTERVAL HISTORY: The patient is doing fine from a respiratory standpoint. She is breathing very comfortably this morning. She had a ZOHAIB this morning. There is no evidence of a PEA. She had horrendously wide open tricuspid regurgitation. The right ventricular function was actually significantly improved after all the diuresis she has been going through. PHYSICAL EXAMINATION: VITAL SIGNS: Afebrile, pulse 71, blood pressure 117/63, respirations 18, saturation 100% on 2 liters nasal cannula. GENERAL: The patient is awake, alert, no apparent distress. LUNGS: Excellent air entry. Dependent crackles where minimal. No prolonged expiratory phase or wheezing is appreciated. HEART: Normal rate, regular. ABDOMEN: Distended. Soft, nontender. Bowel sounds are present. MUSCULOSKELETAL: No cyanosis or clubbing. There is trace to 1+ pitting, which has vastly improved. GENITOURINARY: No Watkins. NEUROLOGIC: Grossly nonfocal. LABORATORY DATA: ANCAs are still pending. ASSESSMENT: 1. Pulmonary hypertension. 2. Chronic hypoxic and hypercapnic respiratory failure. 3. No evidence of PDA on ZOHAIB. PLAN: At this point, I will have the patient follow up with me in the outpatient setting. At that time we will set her up with a polysomnogram. We will also try get her in with pulmonary hypertension center for right heart catheterization. REGINALD
[2017-05-20 16:14] LABS: ANCA Pattern <1:20 titer (Neg:<1:20); ANCA Total <1:20 titer (Neg:<1:20); Myeloperoxidase AutoAbs <9.0 U/mL (0.0-9.0); Proteinase-3 AutoAbs Less than 3.5 U/mL (0.0-3.5)
[2017-05-20] MEDS ORDERED: Propofol 200 MG/20 ML VIAL ONE (17:21)
--- NOTE | 2017-05-31 08:43 | PFT ---
PATIENT HISTORY: HEIGHT: 66 IN WEIGHT: 154 LBS SMOKER: YES HOW LON YEARS PACKS PER DAY: 1 PRODUCTIVE COUGH: NO LUNG DISEASE: PHYSICIAN INTERPRETATION FINAL REPORT: The patient had fair effort and good cooperation. FVC 1.44 (49%), FEV1 0.89 (40%), FEV1/FVC 0.62. TLC 4.62 (101%), RV 3.60 (217%). Diffusion 22.11 (110%). There is a reduction both the FEV1 and the FVC. The ratio is consistent with obstructive airflow limitation. There is no improvement following bronchodilator. Total lung capacity is normal. The residual volume is elevated. Diffusion capacity falls within the normal limits. IMPRESSION: Overall, these pulmonary function studies are most consistent with severe obstructive airflow limitation, airtrapping, and normal gas exchange. Gas Jockey: BUCKY Data Processor: BUCKY MONTELONGO
--- NOTE | 2017-06-15 11:37 | EKG ---
Test Reason : Blood Pressure : / mmHG Vent. Rate : 090 BPM Atrial Rate : 090 BPM P-R Int : 164 ms QRS Dur : 072 ms QT Int : 360 ms P-R-T Axes : 073 169 056 degrees QTc Int : 440 ms Normal sinus rhythm Biatrial enlargement Right axis deviation Right ventricular hypertrophy Cannot rule out Anterior infarct , age undetermined Abnormal ECG Confirmed by SHIKHA FORTE, ALEX Mays ([id number]), editor & co founder KODY JESSICA ([id number]) on 06/15/2017 11:36:38 AM Referred By: DR TRIVEDI Confirmed By:ALEX TRIVEDI MD
== END 2017-05-20 17:18 | disposition home or self-care (01) | DRG 291 ==
LOC: ERS 09:35 → 2NO 14:47
PROVIDERS: ADMIT Internal Medicine; ATTEND Internal Medicine
DX: I11.0 Hypertensive heart disease with heart failure (principal); J96.21 Acute and chronic respiratory failure with hypoxia; E87.2 Acidosis; R18.8 Other ascites; Q25.0 Patent ductus arteriosus; J44.1 Chronic obstructive pulmonary disease with (acute) exacerbation; J96.22 Acute and chronic respiratory failure with hypercapnia; E83.42 Hypomagnesemia; I07.1 Rheumatic tricuspid insufficiency; I27.20 Pulmonary hypertension, unspecified; E11.9 Type 2 diabetes mellitus without complications; D75.89 Other specified diseases of blood and blood-forming organs; E89.0 Postprocedural hypothyroidism; I70.0 Atherosclerosis of aorta; I50.33 Acute on chronic diastolic (congestive) heart failure; F17.210 Nicotine dependence, cigarettes, uncomplicated; R79.0 Abnormal level of blood mineral; Z82.49 Family history of ischemic heart disease and other diseases of the circulatory system; Z84.89 Family history of other specified conditions; Z80.1 Family history of malignant neoplasm of trachea, bronchus and lung
CPT/HCPCS: 36415; 36416; 71010; 71020; 71275; 78582; 80048; 80053; 80061; 80074; 80306; 82553; 82805; 83036; 83690; 83735; 83880; 84443; 84484; 84550; 85025; 86021; 86038; 86430; 87389; 93005; 93306; 93312; 93798; 94060; 94640; 94664; 94727; 94729; 96374; 99406; A4216; A9540; A9558; J1650; J1940; J2704; J3475; J7050; J7620

== ENCOUNTER 2017-06-08 13:52 | Inpatient (IN) | payer SELFPAY ==
[2017-06-08 14:37] LABS: Mean Corpuscular HGB CONC 30.9 g/dL (32.0-36.0); Mean Platelet Volume 11.4 fL (7.4-10.4); Platelet Count 122 thou/uL (130-400); RBC Distribution Width 14.3 % (11.5-14.5); Red Blood Cell (RBC) Count 6.46 mill/uL (4.20-5.40); White Blood Cell (WBC) Count 6.3 thou/uL (4.8-10.8)
--- NOTE | 2017-06-08 14:37 | RAD ---
CHEST ONE VIEW: History: Chest pain. Comparison: 05-13-17 FINDINGS: Cardiac silhouette remains magnified and enlarged. Pulmonary vasculature is unremarkable. Mediastinum is midline. No confluent airspace consolidation or pneumothorax. Metallic clips overlie the lower ne ck. IMPRESSION: Cardiomegaly appears stable. No active cardiopulmonary abnormalities are apparent. POS: [facility]
[2017-06-08 14:49] LABS: INR-International Normal Ratio 1.1; PTT 28.5 SEC (22.9-36.1); Prothrombin Time 14.3 SEC (12.0-14.7)
[2017-06-08 14:57] LABS: CKMB 6.3 ng/mL (0-6.6); Troponin I 0.033 ng/mL (< 0.028)
[2017-06-08] MEDS ORDERED: DOBUTamine 500 mg/250 ml 250 ML ONE (14:58)
[2017-06-08] MEDS ORDERED: Furosemide 40 MG/4 ML VIAL ONE (14:58)
[2017-06-08 15:03] LABS: Anisocytosis SLIGHT = 6-15 cells (100X) (0-5/hpf); Band 1 % (5-11); Lymphocytes 25 % (21-51); MDiff Complete? YES; Monocytes 6 % (0-10); Neutrophil 68 % (42-75); PLT Morphology Comment Appears Decreased
[2017-06-08 15:33] LABS: Albumin 3.2 g/dL (3.5-5.0)
[2017-06-08 15:35] LABS: Chloride 102 mmol/L (98-107); Potassium 4.4 mmol/L (3.5-5.1); Sodium 142 mmol/L (136-145)
[2017-06-08 15:36] LABS: Glucose 124 mg/dL (70-105); Protein, Total 7.2 g/dL (6.0-8.3)
[2017-06-08 15:37] LABS: Carbon Dioxide 30 mmol/L (22-29)
[2017-06-08 15:38] LABS: Anion Gap 14 mmol/L (10-20); Bilirubin, Total 1.5 mg/dL (0.2-1.2)
[2017-06-08 15:39] LABS: Alkaline Phosphatase 157 U/L (40-150); Calc. Creatinine Clearance 0 mL/min (70-130); Estimated GFR-MDRD 46
[2017-06-08 15:40] LABS: BUN (Urea Nitrogen) 60 mg/dL (9.8-20.1)
[2017-06-08 15:41] LABS: AST (SGOT) 42 U/L (5-34)
[2017-06-08 15:42] LABS: ALT (SGPT) 36 U/L (8-55); CK (CPK) 129 U/L (29-168)
[2017-06-08 18:16] LABS: Troponin I 0.029 ng/mL (< 0.028)
[2017-06-08] MEDS ORDERED: Ondansetron HCl/PF 4 MG/2 ML Vial IVP PRN ×2 (19:01→19:45)
[2017-06-08] MEDS ORDERED: Ondansetron ODT 4 MG TAB SL PRN (19:01)
[2017-06-08] MEDS ORDERED: DOBUTamine 500 mg/250 ml 500 MG in Premix Bag 1 BAG IVPB SCH (19:15)
[2017-06-08] MEDS ORDERED: Aspirin 325 MG TAB PO SCH (19:15)
[2017-06-08] MEDS ORDERED: Nitroglycerin 0.4 MG TAB (25 Tab Bottle) PO PRN (19:42)
[2017-06-08] MEDS ORDERED: Insulin Regular 300 UNITS/3 ML VIAL SC PRN (19:45)
[2017-06-08] MEDS ORDERED: Dextrose 50% Abboject 50 ML SYRINGE SLOW IVP PRN (19:45)
[2017-06-08] MEDS ORDERED: Dextrose 5% in Water 1,000 ML IV PRN (19:45)
[2017-06-08] MEDS ORDERED: Senokot 8.6 MG TAB PO PRN (19:45)
[2017-06-08] MEDS ORDERED: Ondansetron ODT 4 MG TAB PO PRN (19:45)
[2017-06-08] MEDS ORDERED: hydrALAZINE 20 MG/ML VIAL SLOW IVP PRN (19:50)
[2017-06-08] MEDS ORDERED: Eucerin (Mineral Oil/Petrolatum,White) 30 gm Jar TOP PRN (19:50)
[2017-06-08] MEDS ORDERED: Diabetic Tussin 200 MG/10 ML UDCUP PO PRN (19:50)
[2017-06-08] MEDS ORDERED: Polyethylene Glycol 3350 17 GM Packet PO PRN (19:50)
[2017-06-08] MEDS ORDERED: cefTRIAXone\\ROCEPHIN 1 GM in Sodium Chloride 0.9% 100 ML IVPB SCH (20:00)
[2017-06-08] MEDS ORDERED: Sodium Chloride 0.9% 250 ML IV SCH (20:00)
[2017-06-08] MEDS ORDERED: Magnesium 2 GM/NS 0.9% 50 ML 2 GM in Premix Bag 1 BAG IVPB SCH (20:15)
[2017-06-08] MEDS ORDERED: Sodium Chloride 0.9% 1,000 ML IV SCH (20:15)
--- NOTE | 2017-06-08 20:23 | HP ---
DATE OF ADMISSION: 06/08/2017 PRIMARY CARE PHYSICIAN: [facility]. CHIEF COMPLAINT: Shortness of breath of 1 week duration. HISTORY OF PRESENT ILLNESS: The patient is a 56-year-old female with chronic diastolic heart failure , severe tricuspid regurgitation with right-sided heart failure, COPD, pulmonary hypertension with re cent hospitalization for congestive heart failure exacerbation, presented to the hospital with above complaints. The patient was admitted at this facility from 05/13/2017 to 05/20/2017 with acute on chronic congest dagoberto heart failure exacerbation. Echocardiogram showed ejection fraction of 50% to 55% with severe tr icuspid regurgitation. The patient was evaluated by Pulmonary, Dr. Salter and Cardiology, Dr. Latonya baltazar. She was discharged home on Lasix 40 mg b.i.d. with lisinopril 2.5 mg daily. Over the last one week, the patient developed gradual worsening shortness of breath to the extent kimberley t she was short of breath while resting. She also had some cough productive of scanty phlegm. Lower extremity has also begun to swell more than usual. In the emergency room, her initial vital signs showed temperature 97.8, respirations 22, pulse rate o f 87 with blood pressure of 109/76 with O2 saturation of 89% on room air. Her EKG showed sinus rhyth m with right axis deviation without significant ST-T wave changes. Chest x-ray showed cardiomegaly w ithout significant pulmonary vascular congestion. PAST MEDICAL HISTORY: 1. Pulmonary hypertension. 2. Chronic diastolic heart failure. 3. Severe tricuspid regurgitation with right-sided heart failure. 4. Chronic obstructive pulmonary disease. 5. Diabetes mellitus, type 2. 6. Hypertension. 7. Hypothyroidism. 8. Tobacco dependence. PAST SURGICAL HISTORY: Thyroidectomy. ALLERGIES: No known drug allergies. CURRENT HOME MEDICATIONS: The patient was discharged earlier this month on allopurinol 100 mg daily, aspirin 81 mg daily, carvedilol 3.125 mg b.i.d., vitamin B12 of 1000 mcg daily, Pepcid 20 mg b.i.d., folic acid 1 mg daily, Lasix 40 mg b.i.d., levothyroxine 75 mcg daily, lisinopril 2.5 mg daily, metf ormin 500 mg daily, Dulera 2 puffs inhalation b.i.d. SOCIAL HISTORY: The patient currently lives at home with her family. Continues to smoke less than 1 pack a day. Denies any alcohol or drug use. FAMILY HISTORY: Positive for mother with lung cancer. Hypertension in several family members. REVIEW OF SYSTEMS: Cannot be reliably obtained from the patient due to significant respiratory distr ess. The patient is currently on noninvasive positive pressure ventilation. PHYSICAL EXAMINATION: VITAL SIGNS: As discussed above. GENERAL: A 56-year-old female, in moderate respiratory distress, currently on noninvasive positive p ressure ventilation. HEENT: Head atraumatic, normocephalic. Sclerae are anicteric. NECK: Supple, no JVD, no neck stiffness. LUNGS: Showed diffuse expiratory wheezing with minimal rales at bases. HEART: S1, S2 present. Regular rate and rhythm, 3/6 systolic murmur over the left lateral sternal b order. No parasternal heaves or pulsation. ABDOMEN: Soft. Bowel sounds present. EXTREMITIES: No calf tenderness. Homans' sign was negative. There was 3 to 4+ bilateral lower extr emity edema. SKIN: Warm and dry. LYMPH NODES: No palpable lymph nodes in the neck. PERIPHERAL VASCULAR: Radial pulses palpable bilaterally. MUSCULOSKELETAL: No joint swelling or tenderness. LABORATORY FINDINGS: 1. Influenza testing was negative. 2. CBC showed WBC 6.3 with hemoglobin 20, hematocrit 64.8 with platelet count of 122. Please note t hat her H&H earlier this month was 16.2/52.1. 3. Chemistries showed sodium 142, potassium 4.4, chloride 102, bicarbonate 30, BUN 60, creatinine 1. 43, glucose of 124. 4. Troponins were in the indeterminate range at 0.029. BNP was 1020. Earlier, the troponin was 0.0 33, total bilirubin was 1.5. 5. Urine drug screen earlier this month was positive for cannabinoid. 6. Lupus panel was negative earlier this month. 7. Chest x-ray and EKG by my review as discussed above. IMPRESSION: 1. Acute hypoxic respiratory failure secondary to chronic obstructive pulmonary disease exacerbation . 2. Chronic diastolic heart failure, questionable decompensated. 3. Acute kidney injury on chronic kidney disease stage 2, probably secondary to over diuresis. 4. Metabolic alkalosis, probably contraction alkalosis. 5. Elevated troponins, probably secondary to demand ischemia. 6. Significant hemoconcentration, probably secondary to over diuresis. 7. Diabetes mellitus, type 2. 8. Cannabis abuse. 9. Ongoing tobacco abuse. 10. Hypertension. 11. Hypothyroidism following thyroidectomy. 12. Pulmonary hypertension. 13. Severe tricuspid regurgitation with right-sided heart failure. 14. Abnormal liver function tests, probably secondary to passive hepatic congestion. 15. Mild protein calorie malnutrition. PLAN: The patient will be monitored in the intermediate care unit. We will continue gentle IV fluid s. Hold diuretics for now. Consult Pulmonary in a.m. Insulin sliding scale. IV steroids. Flu shantanu ting is negative. Empiric antibiotics for COPD exacerbation. Plan of care was discussed with the patient and the family in detail. They stated understanding.
[2017-06-08] MEDS: cefTRIAXone\\ROCEPHIN 1 GM, Syringe 0.4 ML in Sterile Water 9.6 ML SLOW IVP SCH (20:52)
[2017-06-08] MEDS ORDERED: Famotidine 20 MG TAB PO SCH (21:00)
[2017-06-08] MEDS ORDERED: Furosemide 40 MG/4 ML VIAL SLOW IVP SCH (21:00)
[2017-06-08] MEDS: guaiFENesin ER 600 MG TAB PO SCH (21:11)
[2017-06-08] MEDS: Doxycycline 100 MG CAP PO SCH (21:11)
[2017-06-08] MEDS: Docusate 100 MG CAP PO SCH (21:11)
[2017-06-09 04:47] LABS: Troponin I 0.034 ng/mL (< 0.028)
[2017-06-09 04:51] LABS: Albumin 3.2 g/dL (3.5-5.0); Anion Gap 14 mmol/L (10-20); BUN (Urea Nitrogen) 71 mg/dL (9.8-20.1); Calc. Creatinine Clearance 37 mL/min (70-130); Carbon Dioxide 32 mmol/L (22-29); Chloride 101 mmol/L (98-107); Estimated GFR-MDRD 31; Glucose 130 mg/dL (70-105); Magnesium 2.3 mg/dL (1.6-2.6); Phosphorus 6.4 mg/dL (2.3-4.7); Potassium 4.8 mmol/L (3.5-5.1); Sodium 142 mmol/L (136-145)
[2017-06-09] MEDS: Levothyroxine Sodium 75 MCG TAB PO SCH (05:19)
[2017-06-09 05:43] LABS: Hemoglobin 17.4 g/dL (12.0-16.0); Lymphocytes 7 % (21-51); MDiff Complete? YES; Macrocytosis SLIGHT = 6-15 cells (100X) (0-5/hpf); Mean Corpuscular HGB CONC 31.2 g/dL (32.0-36.0); Mean Platelet Volume 12.5 fL (7.4-10.4); Monocytes 2 % (0-10); Neutrophil 91 % (42-75); Platelet Count 117 thou/uL (130-400); RBC Distribution Width 13.3 % (11.5-14.5); Red Blood Cell (RBC) Count 5.45 mill/uL (4.20-5.40); White Blood Cell (WBC) Count 7.2 thou/uL (4.8-10.8)
[2017-06-09] MEDS ORDERED: Mometasone/Formoterol 120 PUFF INHALER INH SCH (06:30)
[2017-06-09] MEDS ORDERED: Sodium Chloride 0.9% 1,000 ML IV SCH (07:45)
[2017-06-09] MEDS ORDERED: Albumin 25% 25 GM/100 ML BOT IVPB SCH (08:00)
[2017-06-09] MEDS ORDERED: Aspirin 81 mg Enteric Coated Tablet PO SCH (09:00)
[2017-06-09] MEDS ORDERED: Multivit, Therapeutic 1 TAB PO SCH (09:00)
[2017-06-09] MEDS ORDERED: Aspirin 325 MG TAB PO SCH (09:00)
[2017-06-09] MEDS ORDERED: Loratadine 10 MG TAB PO SCH (09:00)
[2017-06-09] MEDS: Docusate 100 MG CAP PO SCH (10:26)
[2017-06-09] MEDS: Doxycycline 100 MG CAP PO SCH (10:27)
[2017-06-09] MEDS: guaiFENesin ER 600 MG TAB PO SCH (10:27)
[2017-06-09] MEDS ORDERED: CCU Electrolyte Replacement 1 EACH FS ONE (11:12)
[2017-06-09] MEDS ORDERED: Sedation Protocol FS ONE (11:12)
--- NOTE | 2017-06-09 11:13 | PDOC.CNTRL ---
Central Line Procedure Note - Procedure Date: 06/09/17 Time: 11:11 - PreProcedure Diagnosis: Poor IV access, hypotensive - PostProcedure Diagnosis: successful Right IJ central line - Description Patient tolerated procedure: no complications Procedure in Details: Right IJ vessel identified by ultrasound. Sterile prep with Chlorohexadine. Sterile drape. Inserted via modified Seldinger technique. No apparent complications. Three ports flushed venous blood. Placement confirmed by xray
--- NOTE | 2017-06-09 11:15 | PDOC.BRONC ---
Bronchoscopy Procedure Note - Procedure Date: 06/09/17 Time: 11:14 - PreProcedure Diagnosis: mucus plugging - PostProcedure Diagnosis: mucus plugging - Anesthesia Anesthesia: Pancuronium, Propofol - Description Patient tolerated procedure: well Procedure in Details: Pentax bronchoscope inserted thru pts ETT while she was on mechanical ventilation. Copious secretions removed from trachea, and both lower lobes with NS used as lavage fluid. No other significant findings.
--- NOTE | 2017-06-09 11:18 | PDOC.PULCN ---
Pulmonology Consult: HPI - Date of Consult Date: 06/09/17 Time: 11:16 - Consult Details Reason for Consult: Acute Respiratory Failure Requesting Physician: Hospitalist - History of Present Illness HPI: EDWARDO SAVAGE is a 56 year-old F admitted to [facility] with acute respiratory failure secondary to COPD exacerbation. For the last week she has had progressive SOB and has been coughing up heavy mucoid material. She has continued to smoke. She was started on Bipap last night, but failed and required intubation this AM. Due to AMS, I am unable to get her to talk. History was obtained from old notes and from me speaking to pts sister. Pulmonology Consult: ROS - Review of Systems ROS unobtainable: due to endotracheal tube Pulmonology Consult: [facility] Source: family, other Past Medical History: Pulmonary HTN COPD DM2 tricuspid regurg, Right sided heart failure HTN Hypothyroid Thyroidectomy - Family History Pertinent family history: Lung cancer in mother HTN multiple family members - Social History Smoking Status: Current every day smoker Pack Years: 30 Alcohol Use: none Drug Use History: none Living Situation: independent Pulmonology Consult: Meds - Medications MAR Reviewed: Yes Medications: Current Medications Acetaminophen (Tylenol) 650 mg PO Q4H PRN PRN Reason: Headache/Fever or Pain Albuterol/Ipratropium (Duoneb) 3 ml NEB [id number] [facility] Aspirin (Ecotrin) 81 mg PO DAILY [facility] Last Admin: 06/09/17 10:26 Dose: Not Given Dextrose/Water (Dextrose 50%) 25 gm SLOW IVP PRN PRN PRN Reason: Hypoglycemia Doxycycline Hyclate (Vibramycin) 100 mg PO BID [facility] Last Admin: 06/09/17 10:27 Dose: Not Given Enoxaparin Sodium (Lovenox) 40 mg SC 0900 [facility] Famotidine (Pepcid) 20 mg SLOW IVP BID [facility] Glucagon (Glucagon) 1 mg IM PRN PRN PRN Reason: Hypoglycemia Dextrose/Water (D5w) 1,000 mls @ 0 mls/hr IV .Q0M PRN; As Directed PRN Reason: Hypoglycemia Ceftriaxone Sodium 1 gm/ (Syringe 0.4 ml/ Sterile Water) 10 mls @ 120 mls/hr SLOW IVP 2100 [facility] Last Admin: 06/08/17 20:52 Dose: 10 mls Sodium Chloride (Normal Saline 0.9%) 1,000 mls @ 100 mls/hr IV .Q10H [facility] Norepinephrine Bitartrate (Levophed) 250 mls @ 0 mls/hr IVPB INF [facility]; Titrate PRN Reason: Protocol Insulin Human Regular (Humulin R) 0 units SC .MILD SLIDING SCALE PRN PRN Reason: Mild Correctional Scale Insulin Human Regular (Humulin R) 0 units SC .BEDTIME SLIDING SC PRN PRN Reason: Bedtime Correctional Scale Levothyroxine Sodium (Synthroid) 75 mcg PO 0600 [facility] Last Admin: 06/09/17 05:19 Dose: 75 mcg Methylprednisolone Sodium Succinate (Solu-Medrol) 60 mg IVP Q6HR [facility] Miscellaneous Medication (Ccu Electrolyte Replacement) 1 each FS ONE ONE Stop: 06/09/17 11:13 Miscellaneous Medication (Sedation Protocol) 1 each FS ONE ONE Stop: 06/09/17 11:13 Ondansetron HCl (Zofran) 4 mg IVP Q6H PRN PRN Reason: Nausea/Vomiting Rocuronium [place] (Zemuron) 50 mg IVP Q30MIN PRN PRN Reason: Agitation - Allergies Allergies/Adverse Reactions: Allergies Allergy/AdvReac Type Severity Reaction Status Date / Time No Known Allergies Allergy Verified 06/08/17 18:44 Pulmonology Consult: PE - Physical Exam Deviation from normal: severe respiratory distress HEENT: PERRLA, moist MMs Deviation from normal: profound JVD Cardiovascular: RRR Deviation from normal: 2/6 AMALIA Respiratory: decreased breath sounds, prolonged expiratory phase, wheezes Gastrointestinal: soft, non-tender, no distention Musculoskeletal: no edema Neurological: non-focal, moves all 4 limbs Lymphatic: no nodes Deviation from normal: altered mental status Skin: no rash Pulmonology Consult: Results - Labs Result Diagrams: 06/09/17 04:03 06/09/17 04:03 Lab results: Laboratory Results WBC 7.2 thou/uL (4.8-10.8) 06/09/17 04:03 RBC 5.45 mill/uL (4.20-5.40) H 06/09/17 04:03 Hgb 17.4 g/dL (12.0-16.0) H 06/09/17 04:03 Hct 55.9 % (36.0-47.0) H 06/09/17 04:03 MCV 103.0 fl (81.0-99.0) H 06/09/17 04:03 MCH 32.0 pg (27.0-31.0) H 06/09/17 04:03 MCHC 31.2 g/dL (32.0-36.0) L 06/09/17 04:03 RDW 13.3 % (11.5-14.5) 06/09/17 04:03 Plt Count 117 thou/uL (130-400) L 06/09/17 04:03 MPV 12.5 fL (7.4-10.4) H 06/09/17 04:03 Neutrophils % (Manual) 91 % (42-75) H 06/09/17 04:03 Band Neuts % (Manual) 1 % (5-11) L 06/08/17 14:20 Lymphocytes % (Manual) 7 % (21-51) L 06/09/17 04:03 Monocytes % (Manual) 2 % (0-10) 06/09/17 04:03 Neutrophils # Not Reportable 06/08/17 14:20 Lymphocytes # Not Reportable 06/08/17 14:20 Plt Morphology Comment Appears Decreased L 06/08/17 14:20 Anisocytosis SLIGHT = 6-15 cells (100X) (0-5/hpf) 06/08/17 14:20 Macrocytosis SLIGHT = 6-15 cells (100X) (0-5/hpf) 06/09/17 04:03 PT 14.3 SEC (12.0-14.7) 06/08/17 14:20 INR 1.1 06/08/17 14:20 APTT 28.5 SEC (22.9-36.1) 06/08/17 14:20 Sodium 142 mmol/L (136-145) 06/09/17 04:03 Potassium 4.8 mmol/L (3.5-5.1) 06/09/17 04:03 Chloride 101 mmol/L (98-107) 06/09/17 04:03 Carbon Dioxide 32 mmol/L (22-29) H 06/09/17 04:03 Anion Gap 14 mmol/L (10-20) 06/09/17 04:03 BUN 71 mg/dL (9.8-20.1) H 06/09/17 04:03 Creatinine 2.04 mg/dL (0.6-1.1) H 06/09/17 04:03 Estimated GFR (MDRD) 31 06/09/17 04:03 BUN/Creatinine Ratio 34.80 06/09/17 04:03 Glucose 130 mg/dL (70-105) H 06/09/17 04:03 POC Glucose 137 mg/dL (70-110) H 06/09/17 05:53 Lactic Acid 1.7 mmol/L (0.5-2.2) 06/08/17 14:20 Calcium 10.0 mg/dL (7.8-10.44) 06/09/17 04:03 Phosphorus 6.4 mg/dL (2.3-4.7) H 06/09/17 04:03 Magnesium 2.3 mg/dL (1.6-2.6) 06/09/17 04:03 Total Bilirubin 1.5 mg/dL (0.2-1.2) H 06/08/17 15:12 AST 42 U/L (5-34) H 06/08/17 15:12 ALT 36 U/L (8-55) 06/08/17 15:12 Alkaline Phosphatase 157 U/L (40-150) H 06/08/17 15:12 Creatine Kinase 129 U/L (29-168) 06/08/17 15:12 CK-MB (CK-2) 6.3 ng/mL (0-6.6) 06/08/17 14:20 Troponin I 0.034 ng/mL (< 0.028) H 06/09/17 04:03 B-Natriuretic Peptide 1020.4 pg/mL (0-100) H 06/08/17 14:20 Serum Total Protein 7.2 g/dL (6.0-8.3) 06/08/17 15:12 Albumin 3.2 g/dL (3.5-5.0) L 06/09/17 04:03 Globulin 4.0 g/dL (2.4-3.5) H 06/08/17 15:12 Albumin/Globulin Ratio 0.8 g/dL (1.2-2.2) L 06/08/17 15:12 Lipase 16 U/L (8-78) 06/08/17 14:20 - ABG Interpretation Attestation: I reviewed and interpreted this ABG. Interpretation: respiratory acidosis - EKG Data EKG Interpreted by Myself EKG shows normal: sinus rhythm - Radiology Interpretation Chest x-ray Status: image reviewed by me (central line ok, right side of heart enlarged, no infiltrate, ETT ok) Pulmonology Consult: A/P - Problem (1) Acute on chronic respiratory failure with hypoxia and hypercapnia Current Visit: Yes Code(s): J96.21 - ACUTE AND CHRONIC RESPIRATORY FAILURE WITH HYPOXIA; J96.22 - ACUTE AND CHRONIC RESPIRATORY FAILURE WITH HYPERCAPNIA Status: Acute (2) COPD exacerbation Current Visit: Yes Code(s): J44.1 - CHRONIC OBSTRUCTIVE PULMONARY DISEASE W ( ACUTE) EXACERBATION Status: Acute (3) Pulmonary hypertension Current Visit: Yes Code(s): I27.20 - PULMONARY HYPERTENSION, UNSPECIFIED Status: Acute (4) Severe tricuspid regurgitation Current Visit: Yes Code(s): I07.1 - RHEUMATIC TRICUSPID INSUFFICIENCY Status : Acute (5) Diabetes type 2, controlled Current Visit: Yes Code(s): E11.9 - TYPE 2 DIABETES MELLITUS WITHOUT COMPLICATIONS Status: Chronic (6) Tobacco abuse Current Visit: Yes Code(s): Z72.0 - TOBACCO USE Status: Acute - Time Time: 50% of the time was spent in coordination of care (as documented) at patient's floor/unit and/or counseling patient. Time with Patient: greater than 70 minutes - Plan Plan: Intubated patient secondary to continued resp failure on BiPAP and severe resp distress Set up ventilator Permissive hypercapnea paralysis to facilitate cooperation with vent central line for administration of levophed, given hypotension IV Abx IV steroids Nebs prognosis guarded.
[2017-06-09 11:30] LABS: Base Excess (BEa) -0.6 mEq/L (0 (+/-) 2.5); Calcium, Ionized 1.3 mmol/L (1.12-1.30); Hematocrit-ABG 57.4 % (36.0-47.0); Hemoglobin (Hb) 17.4 g/dL (12.0-16.0); O2 Tension (PaO2) 352.3 mmHg (80.0-100.0); pH, Arterial 7.25 (7.35-7.45)
[2017-06-09 11:31] LABS: CO2 Tension 68.3 mmHg (35.0-45.0); Puncture Site RRA
[2017-06-09 11:32] LABS: ALV-art Gradient 283.325 (0-20)
[2017-06-09] MEDS ORDERED: Fentanyl 20 MCG/ML 250 ML IVPB SCH (11:34)
[2017-06-09] MEDS ORDERED: Lorazepam 2 MG/ML VIAL SLOW IVP PRN (11:34)
[2017-06-09] MEDS ORDERED: Morphine 2 MG/ML SYRINGE SLOW IVP PRN (11:35)
[2017-06-09] MEDS ORDERED: Potassium Chloride 20 MEQ TAB PO PRN (11:36)
[2017-06-09] MEDS ORDERED: Potassium Chloride 40 MEQ in Premix Bag 1 BAG IVPB PRN (11:36)
[2017-06-09] MEDS ORDERED: Potassium Phosphate 15 MMOL in Sodium Chloride 0.9% 250 ML 250 ML IV PRN (11:36)
[2017-06-09] MEDS ORDERED: Potassium Chloride 40 MEQ in Sodium Chloride 0.9% 250 ML 250 ML IVPB PRN (11:36)
[2017-06-09] MEDS ORDERED: Magnesium Oxide 400 MG TAB PO PRN (11:36)
[2017-06-09] MEDS ORDERED: Potassium Phosphate 12 MMOL in Sodium Chloride 0.9% 250 ML 250 ML IV PRN (11:36)
[2017-06-09] MEDS ORDERED: CCU ELECTROLYTE REPLACEMENT PROTOCOL FS PRN (11:36)
[2017-06-09] MEDS ORDERED: Potassium Phosphate 9 MMOL in Sodium Chloride 0.9% 100 ML IVPB PRN (11:36)
[2017-06-09] MEDS ORDERED: Magnesium 2 GM/NS 0.9% 100 ML 2 GM in Premix Bag 1 BAG IVPB PRN (11:36)
[2017-06-09] MEDS: Sodium Chloride 0.9% 1,000 ML IV SCH ×2 (11:39→21:34)
[2017-06-09] MEDS: methylPREDNISolone Sod Succ/PF 125 MG/2 ML VIAL IVP SCH ×2 (11:47→18:20)
[2017-06-09] MEDS ORDERED: Etomidate 20 MG/10 ML VIAL IVP SCH (12:15)
[2017-06-09] MEDS ORDERED: Rocuronium Bromide 50 MG/5 ML VIAL IVP SCH (12:15)
[2017-06-09] MEDS: DOBUTamine 500 mg/250 ml 500 MG in Premix Bag 1 BAG IVPB SCH (14:30)
--- NOTE | 2017-06-09 15:59 | RAD ---
PORTABLE CHEST 06/09/17 PROVIDED CLINICAL HISTORY: Intubation. FINDINGS: Comparison 06/08/17. The cardiac silhouette remains enlarged. Interval placement of an endotracheal tube, the tip of which projects just proximal to the hosea. Interval placement of a right IJ central line, tip of which pr ojects in expected location of the SVC. The lungs appear grossly clear. Evaluation for pleural fluid and pneumothorax is limited by the supine nature of the study without evidence for such. IMPRESSION: Interval intubation and right IJ central line as above. POS: [facility]
[2017-06-09] MEDS: fentaNYL Citrate/PF 2,000 MCG in Sodium Chloride 0.9% 60 ML IV SCH (16:05)
--- NOTE | 2017-06-09 16:25 | PDOC.PN ---
- Subjective Encounter Start Date: 06/09/17 Encounter Start Time: 13:30 Patient seen and examined. Events noted. Failed NIPPV - Objective Resuscitation Status: Resuscitation Status FULL:Full Resuscitation MAR Reviewed: Yes Vital Signs & Weight: Vital Signs (12 hours) Temp Pulse Resp BP BP BP BP 06/09/17 15:24 69 117/78 06/09/17 15:22 78 20 06/09/17 12:01 65 20 138/85 06/09/17 10:30 98.8 F 65 12 06/09/17 08:47 85 06/09/17 08:46 74 22 H 06/09/17 08:43 97.0 F L 75 20 06/09/17 07:41 97.0 F L 75 19 80/47 L 06/09/17 05:15 75 24 H 78/45 L 87/47 L 77/42 L Pulse Ox 06/09/17 15:24 06/09/17 15:22 99 06/09/17 12:01 91 L 06/09/17 10:30 90 L 06/09/17 08:47 06/09/17 08:46 97 06/09/17 08:43 96 06/09/17 07:41 98 06/09/17 05:15 99 Weight Admit Weight 168 lb Weight 168 lb 1 oz I&O: 06/08/17 06/09/17 06/10/17 06:59 06:59 06:59 Intake Total 900 Balance 900 Result Diagrams: 06/09/17 04:03 06/09/17 04:03 Additional Labs: Accuchecks 06/09/17 06/09/17 06/08/17 14:20 05:53 21:12 POC Glucose 106 137 H 81 Radiology Reviewed by me: Yes (CXR - no infiltrate) EKG Reviewed by me: Yes (Tele SR) Phys Exam - Physical Examination Intubated/Sedated on Vent Respiratory: no rales B/L Exp wheezing, Symmetrical, Intubated Cardiovascular: RRR, no rub no heaves/pulsations Gastrointestinal: soft, non-tender, no distention, positive bowel sounds Musculoskeletal: edema present Neuro/Psych - Cannot assess due to sedation Dx/Plan - Plan respiratory therapy, DVT proph w/lovenox, DVT proph w/SCDs IMPRESSION: 1. Acute hypoxic respiratory failure secondary to chronic obstructive pulmonary disease exacerbation. 2. Chronic diastolic heart failure, ?acute on chronic 3. Acute kidney injury on chronic kidney disease stage 2, probably secondary to over diuresis. 4. Hypotension - on pressors 5. Elevated troponins, probably secondary to demand ischemia. 6. Significant hemoconcentration, probably secondary to over diuresis. 7. Diabetes mellitus, type 2. - on sliding scale 8. Cannabis abuse. 9. Ongoing tobacco abuse. 10. Hypertension. 11. Hypothyroidism following thyroidectomy. 12. Pulmonary hypertension. 13. Severe tricuspid regurgitation with right-sided heart failure. 14. Abnormal liver function tests, probably secondary to passive hepatic congestion. 15. Mild protein calorie malnutrition. PLAN: * Cardio/Pulm input appreciated * Vent support * Sedation * AM labs * On Pressors * Cont steroids - dose increased Review of Systems - Review of Systems Other: Cannot obtain due to sedation - Medications/Allergies Allergies/Adverse Reactions: Allergies Allergy/AdvReac Type Severity Reaction Status Date / Time No Known Allergies Allergy Verified 06/08/17 18:44 Medications: Current Medications Acetaminophen (Tylenol) 650 mg PO Q4H PRN PRN Reason: Headache/Fever or Pain Albuterol/Ipratropium (Duoneb) 3 ml NEB [id number] [facility] Last Admin: 06/09/17 15:22 Dose: 3 ml Aspirin (Aspirin Chewable) 81 mg PER TUBE DAILY [facility] Dextrose/Water (Dextrose 50%) 25 gm SLOW IVP PRN PRN PRN Reason: Hypoglycemia Enoxaparin Sodium (Lovenox) 40 mg SC 0900 [facility] Famotidine (Pepcid) 20 mg SLOW IVP BID [facility] Glucagon (Glucagon) 1 mg IM PRN PRN PRN Reason: Hypoglycemia Dextrose/Water (D5w) 1,000 mls @ 0 mls/hr IV .Q0M PRN; As Directed PRN Reason: Hypoglycemia Ceftriaxone Sodium 1 gm/ (Syringe 0.4 ml/ Sterile Water) 10 mls @ 120 mls/hr SLOW IVP 2100 [facility]ER[facility] Last Admin: 06/08/17 20:52 Dose: 10 mls Sodium Chloride (Normal Saline 0.9%) 1,000 mls @ 100 mls/hr IV .Q10H [facility] Last Admin: 06/09/17 11:39 Dose: 1,000 mls Norepinephrine Bitartrate (Levophed) 250 mls @ 0 mls/hr IVPB INF FEROZ; Titrate PRN Reason: Protocol Fentanyl Citrate (Fentanyl Bolus) 250 mls @ 0 mls/hr IVPB PRN PRN; As Directed PRN Reason: Breakthrough pain Stop: 07/09/17 11:34 Potassium Chloride 40 meq/ (Sodium Chloride) 270 mls @ 135 mls/hr IVPB ASDIR PRN PRN Reason: FOR SERUM K+ 2.5 - 3.5 Potassium Chloride 40 meq/ (Device) 100 mls @ 50 mls/hr IVPB ASDIR PRN PRN Reason: FOR SERUM K+ 2.5 - 3.5 Magnesium Sulfate 1 gm/ Sodium (Chloride) 102 mls @ 102 mls/hr IV PRN PRN PRN Reason: MAG LEVEL 1.4 - 2.0 Magnesium Sulfate 2 gm/ Device 100 mls @ 100 mls/hr IVPB ASDIR PRN PRN Reason: MAGNESIUM < 1.4 Potassium Phosphate 9 mmol/ (Sodium Chloride) 103 mls @ 25.75 mls/hr IVPB ASDIR PRN PRN Reason: Phosphate 1.0-1.8 Potassium Phosphate 12 mmol/ (Sodium Chloride) 254 mls @ 63.5 mls/hr IV ASDIR PRN PRN Reason: Serum phosphate 0.5-0.9 Potassium Phosphate 15 mmol/ (Sodium Chloride) 255 mls @ 63.75 mls/hr IV ASDIR PRN PRN Reason: Serum Phos < 0.5 Dobutamine HCl/Dextrose 500 mg (/ Device) 250 mls @ 0 mls/hr IVPB INF FEROZ; As Directed PRN Reason: Protocol Last Admin: 06/09/17 14:30 Dose: 250 mls Fentanyl Citrate 2,000 mcg/ (Sodium Chloride) 100 mls @ 0 mls/hr IV INF FEROZ PRN Reason: As Directed Stop: 07/09/17 15:46 Last Admin: 06/09/17 16:05 Dose: 100 mls Doxycycline Hyclate 100 mg/ (Sodium Chloride) 100 mls @ 100 mls/hr IVPB Q12HR [facility] Insulin Human Regular (Humulin R) 0 units SC .MILD SLIDING SCALE PRN PRN Reason: Mild Correctional Scale Insulin Human Regular (Humulin R) 0 units SC .BEDTIME SLIDING SC PRN PRN Reason: Bedtime Correctional Scale Levothyroxine Sodium (Synthroid) 75 mcg PO 0600 FEROZ Last Admin: 12/27/17 05:19 Dose: 75 mcg Lorazepam (Ativan) 2 mg SLOW IVP Q2H PRN PRN Reason: Anxiety to achieve Estrada 2-3 Stop: 07/09/17 11:34 Magnesium Oxide (Magnesium Oxide) 400 mg PO BIDPRN PRN PRN Reason: FOR SERUM MAG 1.4 - 2.0 Magnesium Oxide (Magnesium Oxide) 800 mg PO PRN PRN PRN Reason: FOR SERUM MAG < 1.4 Methylprednisolone Sodium Succinate (Solu-Medrol) 60 mg IVP Q6HR FEROZ Last Admin: 06/09/17 11:47 Dose: 60 mg Miscellaneous Medication (Phos-Nak) 1 pkt PO TIDPRN PRN PRN Reason: FOR PHOS LEVEL 1.0 - 1.8 Miscellaneous Medication (Phos-Nak) 2 pkt PO TIDPRN PRN PRN Reason: FOR PHOS LEVEL 0.5 - 1.0 Morphine Sulfate (Morphine) 2 mg SLOW IVP Q2H PRN PRN Reason: Breakthrough pain Ccu Electrolyte (Replacement Protocol) 0 each FS PRN PRN PRN Reason: FOR ELECTROLYTE REPLACEMENT Ondansetron HCl (Zofran) 4 mg IVP Q6H PRN PRN Reason: Nausea/Vomiting Potassium Chloride (K-Dur) 40 meq PO ASDIR PRN PRN Reason: FOR SERUM K+ 2.5 - 3.5 Potassium Chloride (Klor-Con) 40 meq PER TUBE ASDIR PRN PRN Reason: FOR SERUM K+ 2.5-3.5 Propofol (Diprivan) 1,000 mg IV INF PRN; Protocol PRN Reason: TO ACHIEVE ESTRADA SCORE 2-3 Stop: 07/09/17 11:34 Rocuronium [place] (Zemuron) 50 mg IVP Q30MIN PRN PRN Reason: Agitation Last Admin: 06/09/17 15:25 Dose: 50 mg
[2017-06-09] MEDS ORDERED: Succinylcholine Chloride 200 MG/10 ML VIAL ONE (16:29)
[2017-06-09] MEDS ORDERED: Rocuronium Bromide 50 MG/5 ML VIAL ONE (16:29)
[2017-06-09] MEDS: Propofol 1,000 MG/100 ML VIAL IV PRN (16:33)
[2017-06-09] MEDS: Norepinephrine 8 MG/0.9% NS 250 ML IVPB SCH ×2 (16:33→21:09)
[2017-06-09 16:39] LABS: Actual Bicarbonate (HCO3a) 32.7 mEq/L (22-26); Base Excess (BEa) 0.1 mEq/L (0 (+/-) 2.5); Calcium, Ionized 1.3 mmol/L (1.12-1.30); Hematocrit-ABG 56.7 % (36.0-47.0); Hemoglobin (Hb) 16.9 g/dL (12.0-16.0); O2 Tension (PaO2) 76.5 mmHg (80.0-100.0)
[2017-06-09 16:40] LABS: CO2 Tension 94.1 mmHg (35.0-45.0); Puncture Site RRA; pH, Arterial 7.16 (7.35-7.45)
[2017-06-09 16:41] LABS: ALV-art Gradient 238.475 (0-20)
--- NOTE | 2017-06-09 19:59 | CON ---
DATE OF CONSULTATION: 06/09/2017 REASON FOR CONSULTATION: Respiratory failure. HISTORY: Ms. Scott is a 56-year-old woman who recently presented with shortness of breath. She gallegos s an extensive history of severe pulmonary hypertension with severe tricuspid regurgitation, right at rial enlargement, right ventricular enlargement. She also has a history of COPD and obstructive slee p apnea. She became markedly short of breath this morning and required rapid sequence intubation. PAST MEDICAL HISTORY: As above including diastolic dysfunction, diabetes mellitus, hypertension, tob acco abuse, hypothyroidism, and thyroidectomy. ALLERGIES: NONE. HOME MEDICATIONS: Include carvedilol, vitamin B12, levothyroxine, Dulera, Lasix, metformin, Pepcid, lisinopril, folic acid. REVIEW OF SYSTEMS: Unobtainable as she is currently intubated and sedated. PHYSICAL EXAMINATION: GENERAL: The patient is currently intubated and sedated. VITAL SIGNS: Blood pressure 178/78, pulse 69, respiratory rate 20. NEUROLOGIC: The patient is alert and oriented times 3 with no focal neurologic deficits. HEENT: Sclerae without icterus. Mouth has moist mucous membranes with normal pallor. NECK: No JVD. Carotid upstroke brisk. No bruits bilaterally. LUNGS: Clear to auscultation with unlabored respirations. BACK: No scoliosis or kyphosis. CARDIAC: Regular rate and rhythm with normal S1 and S2. No S3 or S4 noted. No significant rubs, mu rmurs, thrills, or gallops noted throughout the precordium. PMI is not displaced. There is no shell ternal heave. ABDOMEN: Soft, nontender, nondistended. No peritoneal signs present. No hepatosplenomegaly. No ab normal striae. EXTREMITIES: 2+ femoral and 2+ dorsalis pedis pulses. No cyanosis, clubbing, or edema. SKIN: No gross abnormalities. PERTINENT LABORATORY DATA: Initial hemoglobin of 17.4, platelet count of 117, creatinine 2.04. IMPRESSION: 1. Respiratory failure. 2. Severe pulmonary hypertension. 3. Severe tricuspid regurgitation. 4. Chronic obstructive pulmonary disease. 5. Likely obstructive sleep apnea. RECOMMENDATIONS: At this point, from a CV standpoint, we would recommend low dose of Dobutrex. She is currently on norepinephrine and we will try and titrate down her norepinephrine maintaining adequa te mean arterial pressure. Unfortunately she continues to smoke and does have a previous history of obstructive sleep apnea, but is currently not using a CPAP. We will continue current support. May c onsider right and left heart cath although given lack of facilities were challenging in pulmonary hyp ertension. May recommend tobacco cessation prior to proceeding with any invasive means or measures.
[2017-06-09] MEDS: cefTRIAXone\\ROCEPHIN 1 GM, Syringe 0.4 ML in Sterile Water 9.6 ML SLOW IVP SCH (21:11)
[2017-06-09] MEDS: Famotidine/PF 20 mg/2ml Vial SLOW IVP SCH (21:20)
[2017-06-10] MEDS: methylPREDNISolone Sod Succ/PF 125 MG/2 ML VIAL IVP SCH ×4 (00:47→18:20)
[2017-06-10] MEDS: Insulin Regular 300 UNITS/3 ML VIAL SC PRN ×3 (00:48→18:21)
[2017-06-10] MEDS: Propofol 1,000 MG/100 ML VIAL IV PRN ×4 (01:03→20:57)
[2017-06-10] MEDS: Norepinephrine 8 MG/0.9% NS 250 ML IVPB SCH ×4 (01:40→18:45)
[2017-06-10 05:11] LABS: Albumin 3.1 g/dL (3.5-5.0); Anion Gap 13 mmol/L (10-20); BUN (Urea Nitrogen) 71 mg/dL (9.8-20.1); BUN/Creatinine Ratio 39.89; Calc. Creatinine Clearance 43 mL/min (70-130); Calcium 9.6 mg/dL (7.8-10.44); Carbon Dioxide 29 mmol/L (22-29); Chloride 105 mmol/L (98-107); Estimated GFR-MDRD 36; Glucose 165 mg/dL (70-105); Magnesium 2.1 mg/dL (1.6-2.6); Phosphorus 3.6 mg/dL (2.3-4.7); Potassium 4.2 mmol/L (3.5-5.1); Sodium 143 mmol/L (136-145)
[2017-06-10 06:05] LABS: #Lymphocytes 1.4 thou/uL (1.20-3.40); #Monocytes 0.2 thou/uL (0.11-0.59); #Neutrophils 9.5 thou/uL (1.40-6.50); %Basophils 0.1 % (0.0-1.0); %Eosinophils 0.1 % (0.0-10.0); %Lymphocytes 12.5 % (21.0-51.0); %Neutrophils 85.4 % (42.0-75.0); Band 3 % (5-11); Hemoglobin 17.3 g/dL (12.0-16.0); Lymphocytes 13 % (21-51); MDiff Complete? YES; Mean Corpuscular HGB CONC 30.7 g/dL (32.0-36.0); Mean Corpuscular Hemoglobin 30.7 pg (27.0-31.0); Mean Corpuscular Volume 99.7 fl (81.0-99.0); Mean Platelet Volume 11.6 fL (7.4-10.4); Neutrophil 83 % (42-75); PLT Morphology Comment Appears Adequate; Platelet Count 141 thou/uL (130-400); RBC Distribution Width 13.4 % (11.5-14.5); Reactive Lymphocytes 1 % (0-10); Red Blood Cell (RBC) Count 5.65 mill/uL (4.20-5.40); White Blood Cell (WBC) Count 11.2 thou/uL (4.8-10.8)
[2017-06-10] MEDS: Sodium Chloride 0.9% 1,000 ML IV SCH ×3 (06:29→21:01)
[2017-06-10] MEDS: Levothyroxine Sodium 75 MCG TAB PO SCH (06:34)
[2017-06-10 07:18] LABS: Base Excess (BEa) 1.5 mEq/L (0 (+/-) 2.5); CO2 Tension 50.4 mmHg (35.0-45.0); Calcium, Ionized 1.3 mmol/L (1.12-1.30); Hematocrit-ABG 54.8 % (36.0-47.0); Hemoglobin (Hb) 17.4 g/dL (12.0-16.0); O2 Tension (PaO2) 72.7 mmHg (80.0-100.0); pH, Arterial 7.36 (7.35-7.45)
--- NOTE | 2017-06-10 07:40 | PDOC.PULCC ---
CCU Progress Note: Subj/Obj - Subjective Date: 06/10/17 Time: 07:39 Subjective: intubated, sedated and paralyzed - Objective Allergies/Adverse Reactions: Allergies Allergy/AdvReac Type Severity Reaction Status Date / Time No Known Allergies Allergy Verified 06/08/17 18:44 Medications: Current Medications Acetaminophen (Tylenol) 650 mg PO Q4H PRN PRN Reason: Headache/Fever or Pain Albuterol/Ipratropium (Duoneb) 3 ml NEB [id number] [facility] Last Admin: 06/10/17 06:49 Dose: 3 ml Aspirin (Aspirin Chewable) 81 mg PER TUBE DAILY [facility] Dextrose/Water (Dextrose 50%) 25 gm SLOW IVP PRN PRN PRN Reason: Hypoglycemia Enoxaparin Sodium (Lovenox) 40 mg SC 0900 [facility] Famotidine (Pepcid) 20 mg SLOW IVP BID [facility] Last Admin: 06/09/17 21:20 Dose: 20 mg Glucagon (Glucagon) 1 mg IM PRN PRN PRN Reason: Hypoglycemia Dextrose/Water (D5w) 1,000 mls @ 0 mls/hr IV .Q0M PRN; As Directed PRN Reason: Hypoglycemia Ceftriaxone Sodium 1 gm/ (Syringe 0.4 ml/ Sterile Water) 10 mls @ 120 mls/hr SLOW IVP 2100 [facility] Last Admin: 06/09/17 21:11 Dose: 10 mls Sodium Chloride (Normal Saline 0.9%) 1,000 mls @ 100 mls/hr IV .Q10H [facility] Last Admin: 06/10/17 06:29 Dose: 1,000 mls Norepinephrine Bitartrate (Levophed) 250 mls @ 0 mls/hr IVPB INF FEROZ; Titrate PRN Reason: Protocol Last Admin: 06/10/17 06:30 Dose: 250 mls Fentanyl Citrate (Fentanyl Bolus) 250 mls @ 0 mls/hr IVPB PRN PRN; As Directed PRN Reason: Breakthrough pain Stop: 07/09/17 11:34 Potassium Chloride 40 meq/ (Sodium Chloride) 270 mls @ 135 mls/hr IVPB ASDIR PRN PRN Reason: FOR SERUM K+ 2.5 - 3.5 Potassium Chloride 40 meq/ (Device) 100 mls @ 50 mls/hr IVPB ASDIR PRN PRN Reason: FOR SERUM K+ 2.5 - 3.5 Magnesium Sulfate 1 gm/ Sodium (Chloride) 102 mls @ 102 mls/hr IV PRN PRN PRN Reason: MAG LEVEL 1.4 - 2.0 Magnesium Sulfate 2 gm/ Device 100 mls @ 100 mls/hr IVPB ASDIR PRN PRN Reason: MAGNESIUM < 1.4 Potassium Phosphate 9 mmol/ (Sodium Chloride) 103 mls @ 25.75 mls/hr IVPB ASDIR PRN PRN Reason: Phosphate 1.0-1.8 Potassium Phosphate 12 mmol/ (Sodium Chloride) 254 mls @ 63.5 mls/hr IV ASDIR PRN PRN Reason: Serum phosphate 0.5-0.9 Potassium Phosphate 15 mmol/ (Sodium Chloride) 255 mls @ 63.75 mls/hr IV ASDIR PRN PRN Reason: Serum Phos < 0.5 Dobutamine HCl/Dextrose 500 mg (/ Device) 250 mls @ 0 mls/hr IVPB INF FEROZ; As Directed PRN Reason: Protocol Last Admin: 06/09/17 14:30 Dose: 250 mls Fentanyl Citrate 2,000 mcg/ (Sodium Chloride) 100 mls @ 0 mls/hr IV INF FEROZ PRN Reason: As Directed Stop: 07/09/17 15:46 Last Admin: 06/09/17 16:05 Dose: 100 mls Doxycycline Hyclate 100 mg/ (Sodium Chloride) 100 mls @ 100 mls/hr IVPB Q12HR [facility] Last Admin: 06/09/17 21:10 Dose: 100 mls Insulin Human Regular (Humulin R) 0 units SC .MILD SLIDING SCALE PRN PRN Reason: Mild Correctional Scale Last Admin: 06/10/17 00:48 Dose: 3 unit Insulin Human Regular (Humulin R) 0 units SC .BEDTIME SLIDING SC PRN PRN Reason: Bedtime Correctional Scale Levothyroxine Sodium (Synthroid) 75 mcg PO 0600 [facility] Last Admin: 06/10/17 06:34 Dose: 75 mcg Lorazepam (Ativan) 2 mg SLOW IVP Q2H PRN PRN Reason: Anxiety to achieve Estrada 2-3 Stop: 07/09/17 11:34 Magnesium Oxide (Magnesium Oxide) 400 mg PO BIDPRN PRN PRN Reason: FOR SERUM MAG 1.4 - 2.0 Magnesium Oxide (Magnesium Oxide) 800 mg PO PRN PRN PRN Reason: FOR SERUM MAG < 1.4 Methylprednisolone Sodium Succinate (Solu-Medrol) 60 mg IVP Q6HR [facility] Last Admin: 06/10/17 06:31 Dose: 60 mg Miscellaneous Medication (Phos-Nak) 1 pkt PO TIDPRN PRN PRN Reason: FOR PHOS LEVEL 1.0 - 1.8 Miscellaneous Medication (Phos-Nak) 2 pkt PO TIDPRN PRN PRN Reason: FOR PHOS LEVEL 0.5 - 1.0 Morphine Sulfate (Morphine) 2 mg SLOW IVP Q2H PRN PRN Reason: Breakthrough pain Ccu Electrolyte (Replacement Protocol) 0 each FS PRN PRN PRN Reason: FOR ELECTROLYTE REPLACEMENT Ondansetron HCl (Zofran) 4 mg IVP Q6H PRN PRN Reason: Nausea/Vomiting Potassium Chloride (K-Dur) 40 meq PO ASDIR PRN PRN Reason: FOR SERUM K+ 2.5 - 3.5 Potassium Chloride (Klor-Con) 40 meq PER TUBE ASDIR PRN PRN Reason: FOR SERUM K+ 2.5-3.5 Propofol (Diprivan) 1,000 mg IV INF PRN; Protocol PRN Reason: TO ACHIEVE ESTRADA SCORE 2-3 Stop: 07/09/17 11:34 Last Admin: 06/10/17 01:40 Dose: 1,000 mg Rocuronium [place] (Zemuron) 50 mg IVP Q30MIN PRN PRN Reason: Agitation Last Admin: 06/10/17 06:33 Dose: 50 mg MAR Reviewed: Yes Vital Signs and I&O: Vital Signs Temp 99.3 F 06/10/17 01:00 Pulse 87 06/10/17 06:50 Resp 20 06/10/17 06:49 BP 94/65 06/10/17 06:50 Pulse Ox 99 06/10/17 06:49 Intake & Output 06/09/17 06/10/17 06/10/17 18:59 06:59 18:59 Intake Total 974.8 2049.1 Output Total 132 1045 Balance 842.8 1004.1 Weight 168 lb 1 oz 171 lb 11.841 oz Intake: Intake, IV Amount 974.8 2049.1 DOBUTamine 500 mg/250 ml 14 70.9 500 mg In Premix Bag 1 bag @ As Directed IVPB INF FEROZ Rx#:[id number] Norepinephrine 8 MG/0.9% 249 576 NS 250 ml @ Titrate IVPB INF FEROZ Rx#:[id number] Propofol 1000 mg (See 93 117 Protocol) IV INF PRN Rx#: [id number] Sodium Chloride 0.9% 1, 599 1225 000 ml @ 100 mls/hr IV . Q10H [facility]Z Rx#:[id number] fentaNYL Citrate/PF 2,000 19.8 60.2 mcg In Sodium Chloride 0 .9% 60 ml @ As Directed IV INF FEROZ Rx#:[id number] Oral 0 0 Output: Output, [place] 132 [id number] Other: Voiding Method Indwelling Catheter Indwelling Catheter Vent Setting: simv 20/380,peep5/45% Spontaneous Breathing Test: not done CCU Progress Note: Exam - Physical Exam Constitutional: NAD HEENT: PERRLA, sclera anicteric Neck: no JVD Cardiovascular: RRR Focused Respiratory Location: wheezes: Right, Left Gastrointestinal: soft, non-tender Musculoskeletal: no edema Deviation from normal: paralyzed Lymphatic: no nodes Deviation from normal: sedated Skin: no rash - Labs Result Diagrams: 06/10/17 04:30 06/10/17 04:30 Lab results: Laboratory Results - last 24 hr 06/09/17 06/09/17 06/09/17 08:46 11:20 14:20 WBC RBC Hgb Hct MCV MCH MCHC RDW Plt Count MPV Neutrophils % Neutrophils % (Manual) Band Neuts % (Manual) Lymphocytes % Lymphocytes % (Manual) Reactive Lymphs % Monocytes % Eosinophils % Basophils % Neutrophils # Lymphocytes # Monocytes # Eosinophils # Basophils # Plt Morphology Comment Specimen Type ARTERIAL ARTERIAL Puncture Site RRA RRA Bicarbonate Actual 32.7 H 29.0 H ABG pH 7.16 L* 7.25 L* ABG pCO2 94.1 H* 68.3 H* ABG pO2 76.5 L 352.3 H ABG O2 Sat Calc/Froylan 93.4 L 99.7 ABG O2 Content 21.6 24.6 H ABG Base Excess 0.1 -0.6 ABG Hematocrit 56.7 H 57.4 H ABG Hemoglobin 16.9 H 17.4 H ABG Oxyhemoglobin 90.9 L 97.3 H ABG Carboxyhemoglobin 1.9 1.7 ABG Methemoglobin 0.7 0.7 ABG Deoxyhemoglobin 6.4 H 0.3 Dane Test POSITIVE POSITIVE A-a O2 Gradient 238.475 H 283.325 H Sodium 142 140 Potassium 4.9 4.8 Chloride 99 101 Ionized Calcium 1.3 1.3 Mode of Support NIPPV SIMV.PSV Mechanical Rate 10 20 Inspired O2 60 100 Tidal Volume 380 Peak Inspir Pressure 10 Pressure Support 12 PEEP or CPAP 5.0 5.0 Carbon Dioxide Anion Gap BUN Creatinine Estimated GFR (MDRD) BUN/Creatinine Ratio Glucose POC Glucose 106 Calcium Phosphorus Magnesium Albumin 06/09/17 06/10/17 06/10/17 18:17 00:20 04:30 WBC RBC Hgb Hct MCV MCH MCHC RDW Plt Count MPV Neutrophils % Neutrophils % (Manual) Band Neuts % (Manual) Lymphocytes % Lymphocytes % (Manual) Reactive Lymphs % Monocytes % Eosinophils % Basophils % Neutrophils # Lymphocytes # Monocytes # Eosinophils # Basophils # Plt Morphology Comment Specimen Type Puncture Site Bicarbonate Actual ABG pH ABG pCO2 ABG pO2 ABG O2 Sat Calc/Froylan ABG O2 Content ABG Base Excess ABG Hematocrit ABG Hemoglobin ABG Oxyhemoglobin ABG Carboxyhemoglobin ABG Methemoglobin ABG Deoxyhemoglobin Dane Test A-a O2 Gradient Sodium 143 Potassium 4.2 Chloride 105 Ionized Calcium Mode of Support Mechanical Rate Inspired O2 Tidal Volume Peak Inspir Pressure Pressure Support PEEP or CPAP Carbon Dioxide 29 Anion Gap 13 BUN 71 H Creatinine 1.78 H Estimated GFR (MDRD) 36 BUN/Creatinine Ratio 39.89 Glucose 165 H POC Glucose 122 H 203 H Calcium 9.6 Phosphorus 3.6 Magnesium 2.1 Albumin 3.1 L 06/10/17 04:30 WBC 11.2 H RBC 5.65 H Hgb 17.3 H Hct 56.4 H MCV 99.7 H MCH 30.7 MCHC 30.7 L RDW 13.4 Plt Count 141 MPV 11.6 H Neutrophils % 85.4 H Neutrophils % (Manual) 83 H Band Neuts % (Manual) 3 L Lymphocytes % 12.5 L Lymphocytes % (Manual) 13 L Reactive Lymphs % 1 Monocytes % 2.0 Eosinophils % 0.1 Basophils % 0.1 Neutrophils # 9.5 H Lymphocytes # 1.4 Monocytes # 0.2 Eosinophils # 0.0 Basophils # 0.0 Plt Morphology Comment Appears Adequate Specimen Type Puncture Site Bicarbonate Actual ABG pH ABG pCO2 ABG pO2 ABG O2 Sat Calc/Froylan ABG O2 Content ABG Base Excess ABG Hematocrit ABG Hemoglobin ABG Oxyhemoglobin ABG Carboxyhemoglobin ABG Methemoglobin ABG Deoxyhemoglobin Dane Test A-a O2 Gradient Sodium Potassium Chloride Ionized Calcium Mode of Support Mechanical Rate Inspired O2 Tidal Volume Peak Inspir Pressure Pressure Support PEEP or CPAP Carbon Dioxide Anion Gap BUN Creatinine Estimated GFR (MDRD) BUN/Creatinine Ratio Glucose POC Glucose Calcium Phosphorus Magnesium Albumin CCU Progress Note: A/P - Problems (1) Acute on chronic respiratory failure with hypoxia and hypercapnia Current Visit: Yes Status: Acute Code(s): J96.21 - ACUTE AND CHRONIC RESPIRATORY FAILURE WITH HYPOXIA; J96.22 - ACUTE AND CHRONIC RESPIRATORY FAILURE WITH HYPERCAPNIA (2) COPD exacerbation Current Visit: Yes Status: Acute Code(s): J44.1 - CHRONIC OBSTRUCTIVE PULMONARY DISEASE W (ACUTE) EXACERBATION (3) Pulmonary hypertension Current Visit: Yes Status: Acute Code(s): I27.20 - PULMONARY HYPERTENSION, UNSPECIFIED (4) Severe tricuspid regurgitation Current Visit: Yes Status: Acute Code(s): I07.1 - RHEUMATIC TRICUSPID INSUFFICIENCY (5) Diabetes type 2, controlled Current Visit: Yes Status: Chronic Code(s): E11.9 - TYPE 2 DIABETES MELLITUS WITHOUT COMPLICATIONS (6) Tobacco abuse Current Visit: Yes Status: Acute Code(s): Z72.0 - TOBACCO USE - Time Spent with Patient Time: 50% of the time was spent in coordination of care (as documented) at patient's floor/unit and/or counseling patient. Time with Patient: greater than 50 minutes - Plan Plan: Not weanable yet. Continues to need to be paralyzed to fascilitate compliance Start TF Continue dobutamine and NE Continue steroids, nebs, abx
[2017-06-10 07:45] LABS: Puncture Site RRA
[2017-06-10] MEDS: Famotidine/PF 20 mg/2ml Vial SLOW IVP SCH ×2 (09:05→20:59)
[2017-06-10] MEDS: Enoxaparin Sodium 40 MG/0.4 ML SYRINGE SC SCH (09:06)
[2017-06-10] MEDS: fentaNYL Citrate/PF 2,000 MCG in Sodium Chloride 0.9% 60 ML IV SCH (11:26)
[2017-06-10] MEDS ORDERED: Rocuronium Bromide 50 MG/5 ML VIAL IVP PRN (13:30)
--- NOTE | 2017-06-10 14:35 | PRG ---
DATE OF SERVICE: 06/10/2017 SUBJECTIVE: Ms. Scott's status is unchanged. She continues to be intubated and sedated. She was seen and evaluated by Dr. Austin Meredith and not felt that she was not weanable. OBJECTIVE: VITAL SIGNS: Blood pressure 110/70, pulse 88, temperature afebrile. GENERAL: Intubated and sedated. LUNGS: Clear to auscultation. HEART: Regular rate and rhythm. ABDOMEN: Soft, nontender, nondistended. EXTREMITIES: No edema. PERTINENT LABORATORY DATA: Hemoglobin 17.3. IMPRESSION: 1. Respiratory failure. 2. Severe pulmonary hypertension. 3. Chronic obstructive pulmonary disease. 4. Likely sleep apnea. RECOMMENDATIONS: I have seen Ms. Scott on her previous hospitalization in addition to during this hospitalization. Her family was available today. Her sister states she smokes up to 2 packs per da y and has for many years. She also admits to her snoring at night. This set a long likely severe CO PD and sleep apnea. She also has a component of polycythemia, which likely is related to tobacco abu se. From a CV standpoint, I do not have anything further to add outside of continue support. I have to i nsist her how importance this for her to quit smoking and see if she improves. This is likely a life threatening issue and if not corrected, she will likely come to her current condition. This has als o been discussed with Ms. Scott in the past.
[2017-06-10] MEDS: cefTRIAXone\\ROCEPHIN 1 GM, Syringe 0.4 ML in Sterile Water 9.6 ML SLOW IVP SCH (20:59)
--- NOTE | 2017-06-10 22:53 | PDOC.PN ---
- Subjective Encounter Start Date: 06/10/17 Encounter Start Time: 18:30 Patient seen and examined. On Vent/Levophed/Dobutamine. No overnight events - Objective Resuscitation Status: Resuscitation Status FULL:Full Resuscitation MAR Reviewed: Yes Vital Signs & Weight: Vital Signs (12 hours) Temp Pulse Resp BP Pulse Ox 06/10/17 22:13 109 H 06/10/17 22:12 88 27 H 100 06/10/17 22:00 20 06/10/17 20:00 20 06/10/17 18:43 88 06/10/17 18:42 88 20 100 06/10/17 18:00 20 06/10/17 16:00 99.3 F 20 06/10/17 14:25 87 113/80 06/10/17 14:24 89 20 99 06/10/17 14:00 20 06/10/17 12:00 98.9 F 20 100 06/10/17 11:18 83 111/72 06/10/17 11:16 84 20 99 Weight Admit Weight 168 lb Weight 171 lb 11.841 oz Most Recent Monitor Data Heart Rate from ECG 88 NIBP 117/79 NIBP BP-Mean 85 Respiration from ECG 20 SpO2 99 I&O: 06/09/17 06/10/17 06/11/17 06:59 06:59 06:59 Intake Total 900 3023.9 2220.4 Output Total 1177 920 Balance 900 1846.9 1300.4 Result Diagrams: 06/11/17 06:12 06/10/17 04:30 Additional Labs: Accuchecks 06/10/17 06/10/17 06/10/17 18:19 12:53 00:20 POC Glucose 151 H 190 H 203 H Radiology Reviewed by me: Yes (CXR 06/09 - no infiltrate) EKG Reviewed by me: Yes (Tele SR) Phys Exam - Physical Examination Intubated on Vent/pressors Respiratory: no rales, wheezing present scat rhonchi/symmetrical. Intubated Cardiovascular: RRR, no rub no heaves/pulsations Gastrointestinal: soft, positive bowel sounds no guarding/rigidity Musculoskeletal: edema present Neuro/Pscyh - Cannot assess due to sedation Dx/Plan - Plan pierce catheter, respiratory therapy, DVT proph w/lovenox, DVT proph w/SCDs IMPRESSION: 1. Acute hypoxic respiratory failure secondary to chronic obstructive pulmonary disease exacerbation. on Mech Vent 2. Chronic diastolic heart failure - acute on chronic 3. Acute kidney injury on chronic kidney disease stage 2, probably secondary to over diuresis. 4. Hypotension - on pressors 5. Elevated troponins, probably secondary to demand ischemia. 6. Hypertension. 7. Diabetes mellitus, type 2. - on sliding scale 8. Cannabis abuse. 9. Ongoing tobacco abuse. 10. Pulmonary hypertension. 11. Hypothyroidism following thyroidectomy. 12. Mild protein calorie malnutrition. 13. Severe tricuspid regurgitation with right-sided heart failure. 14. Abnormal liver function tests, probably secondary to passive hepatic congestion. PLAN: * On Levophed/Dobutamine/Steroids * Cardio/Pulm following * On Mech Vent * AM labs * Cont current meds as below Review of Systems - Review of Systems Other: Cannot obtain due to sedation - Medications/Allergies Allergies/Adverse Reactions: Allergies Allergy/AdvReac Type Severity Reaction Status Date / Time No Known Allergies Allergy Verified 06/08/17 18:44 Medications: Current Medications Acetaminophen (Tylenol) 650 mg PO Q4H PRN PRN Reason: Headache/Fever or Pain Albuterol/Ipratropium (Duoneb) 3 ml NEB [id number] [facility] Last Admin: 06/10/17 22:12 Dose: 3 ml Aspirin (Aspirin Chewable) 81 mg PER TUBE DAILY [facility] Last Admin: 06/10/17 09:05 Dose: 81 mg Dextrose/Water (Dextrose 50%) 25 gm SLOW IVP PRN PRN PRN Reason: Hypoglycemia Enoxaparin Sodium (Lovenox) 40 mg SC 0900 [facility] Last Admin: 06/10/17 09:06 Dose: 40 mg Famotidine (Pepcid) 20 mg SLOW IVP BID [facility] Last Admin: 06/10/17 20:59 Dose: 20 mg Glucagon (Glucagon) 1 mg IM PRN PRN PRN Reason: Hypoglycemia Dextrose/Water (D5w) 1,000 mls @ 0 mls/hr IV .Q0M PRN; As Directed PRN Reason: Hypoglycemia Ceftriaxone Sodium 1 gm/ (Syringe 0.4 ml/ Sterile Water) 10 mls @ 120 mls/hr SLOW IVP 2100 [facility] Last Admin: 06/10/17 20:59 Dose: 10 mls Norepinephrine Bitartrate (Levophed) 250 mls @ 0 mls/hr IVPB INF [facility]; Titrate PRN Reason: Protocol Last Admin: 06/10/17 18:45 Dose: 250 mls Fentanyl Citrate (Fentanyl Bolus) 250 mls @ 0 mls/hr IVPB PRN PRN; As Directed PRN Reason: Breakthrough pain Stop: 07/09/17 11:34 Potassium Chloride 40 meq/ (Sodium Chloride) 270 mls @ 135 mls/hr IVPB ASDIR PRN PRN Reason: FOR SERUM K+ 2.5 - 3.5 Potassium Chloride 40 meq/ (Device) 100 mls @ 50 mls/hr IVPB ASDIR PRN PRN Reason: FOR SERUM K+ 2.5 - 3.5 Magnesium Sulfate 1 gm/ Sodium (Chloride) 102 mls @ 102 mls/hr IV PRN PRN PRN Reason: MAG LEVEL 1.4 - 2.0 Magnesium Sulfate 2 gm/ Device 100 mls @ 100 mls/hr IVPB ASDIR PRN PRN Reason: MAGNESIUM < 1.4 Potassium Phosphate 9 mmol/ (Sodium Chloride) 103 mls @ 25.75 mls/hr IVPB ASDIR PRN PRN Reason: Phosphate 1.0-1.8 Potassium Phosphate 12 mmol/ (Sodium Chloride) 254 mls @ 63.5 mls/hr IV ASDIR PRN PRN Reason: Serum phosphate 0.5-0.9 Potassium Phosphate 15 mmol/ (Sodium Chloride) 255 mls @ 63.75 mls/hr IV ASDIR PRN PRN Reason: Serum Phos < 0.5 Dobutamine HCl/Dextrose 500 mg (/ Device) 250 mls @ 0 mls/hr IVPB INF [facility]; As Directed PRN Reason: Protocol Last Admin: 06/09/17 14:30 Dose: 250 mls Fentanyl Citrate 2,000 mcg/ (Sodium Chloride) 100 mls @ 0 mls/hr IV INF [facility] PRN Reason: As Directed Stop: 07/09/17 15:46 Last Admin: 06/10/17 11:26 Dose: 100 mls Doxycycline Hyclate 100 mg/ (Sodium Chloride) 100 mls @ 100 mls/hr IVPB Q12HR [facility] Last Admin: 06/10/17 20:58 Dose: 100 mls Sodium Chloride (Normal Saline 0.9%) 1,000 mls @ 75 mls/hr IV .[id number] [facility] Last Admin: 06/10/17 21:01 Dose: 1,000 mls Insulin Human Regular (Humulin R) 0 units SC .MILD SLIDING SCALE PRN PRN Reason: Mild Correctional Scale Last Admin: 06/10/17 18:21 Dose: 2 unit Insulin Human Regular (Humulin R) 0 units SC .BEDTIME SLIDING SC PRN PRN Reason: Bedtime Correctional Scale Levothyroxine Sodium (Synthroid) 75 mcg PO 0600 [facility] Last Admin: 06/10/17 06:34 Dose: 75 mcg Lorazepam (Ativan) 2 mg SLOW IVP Q2H PRN PRN Reason: Anxiety to achieve Estrada 2-3 Stop: 07/09/17 11:34 Magnesium Oxide (Magnesium Oxide) 400 mg PO BIDPRN PRN PRN Reason: FOR SERUM MAG 1.4 - 2.0 Magnesium Oxide (Magnesium Oxide) 800 mg PO PRN PRN PRN Reason: FOR SERUM MAG < 1.4 Methylprednisolone Sodium Succinate (Solu-Medrol) 60 mg IVP Q6HR [facility] Last Admin: 06/10/17 18:20 Dose: 60 mg Miscellaneous Medication (Phos-Nak) 1 pkt PO TIDPRN PRN PRN Reason: FOR PHOS LEVEL 1.0 - 1.8 Miscellaneous Medication (Phos-Nak) 2 pkt PO TIDPRN PRN PRN Reason: FOR PHOS LEVEL 0.5 - 1.0 Morphine Sulfate (Morphine) 2 mg SLOW IVP Q2H PRN PRN Reason: Breakthrough pain Ccu Electrolyte (Replacement Protocol) 0 each FS PRN PRN PRN Reason: FOR ELECTROLYTE REPLACEMENT Ondansetron HCl (Zofran) 4 mg IVP Q6H PRN PRN Reason: Nausea/Vomiting Potassium Chloride (K-Dur) 40 meq PO ASDIR PRN PRN Reason: FOR SERUM K+ 2.5 - 3.5 Potassium Chloride (Klor-Con) 40 meq PER TUBE ASDIR PRN PRN Reason: FOR SERUM K+ 2.5-3.5 Propofol (Diprivan) 1,000 mg IV INF PRN; Protocol PRN Reason: TO ACHIEVE ESTRADA SCORE 2-3 Stop: 07/09/17 11:34 Last Admin: 06/10/17 20:57 Dose: 1,000 mg Rocuronium Flas[place] (Zemuron) 50 mg IVP Q30MIN PRN PRN Reason: Agitation Last Admin: 06/10/17 22:10 Dose: 50 mg
[2017-06-11] MEDS: DOBUTamine 500 mg/250 ml 500 MG in Premix Bag 1 BAG IVPB SCH (00:01)
[2017-06-11] MEDS: Norepinephrine 8 MG/0.9% NS 250 ML IVPB SCH ×2 (00:01→11:34)
[2017-06-11] MEDS: Insulin Regular 300 UNITS/3 ML VIAL SC PRN ×4 (00:08→17:21)
[2017-06-11] MEDS: Levothyroxine Sodium 75 MCG TAB PO SCH (05:12)
[2017-06-11] MEDS: methylPREDNISolone Sod Succ/PF 125 MG/2 ML VIAL IVP SCH ×4 (05:12→18:00)
[2017-06-11] MEDS: Propofol 1,000 MG/100 ML VIAL IV PRN ×2 (05:17→14:58)
[2017-06-11] MEDS: fentaNYL Citrate/PF 2,000 MCG in Sodium Chloride 0.9% 60 ML IV SCH ×2 (05:51→22:29)
[2017-06-11 06:44] LABS: #Lymphocytes 0.7 thou/uL (1.20-3.40); #Monocytes 0.2 thou/uL (0.11-0.59); #Neutrophils 7.6 thou/uL (1.40-6.50); %Lymphocytes 8.7 % (21.0-51.0); %Monocytes 2.3 % (0.0-10.0); Hemoglobin 17.1 g/dL (12.0-16.0); Mean Corpuscular HGB CONC 30.6 g/dL (32.0-36.0); Mean Corpuscular Hemoglobin 30.9 pg (27.0-31.0); Mean Platelet Volume 11.5 fL (7.4-10.4); Platelet Count 132 thou/uL (130-400); RBC Distribution Width 13.6 % (11.5-14.5); Red Blood Cell (RBC) Count 5.55 mill/uL (4.20-5.40); White Blood Cell (WBC) Count 8.6 thou/uL (4.8-10.8)
[2017-06-11 07:57] LABS: Actual Bicarbonate (HCO3a) 27.8 mEq/L (22-26); CO2 Tension 51.6 mmHg (35.0-45.0); Calcium, Ionized 1.4 mmol/L (1.12-1.30); Hematocrit-ABG 53.3 % (36.0-47.0); Hemoglobin (Hb) 17.2 g/dL (12.0-16.0); O2 Tension (PaO2) 64.8 mmHg (80.0-100.0); pH, Arterial 7.35 (7.35-7.45)
[2017-06-11 07:59] LABS: Puncture Site RRA
[2017-06-11 08:58] LABS: Albumin 3.2 g/dL (3.5-5.0); Anion Gap 13 mmol/L (10-20); BUN (Urea Nitrogen) 62 mg/dL (9.8-20.1); BUN/Creatinine Ratio 43.36; Calc. Creatinine Clearance 55 mL/min (70-130); Calcium 10.2 mg/dL (7.8-10.44); Carbon Dioxide 29 mmol/L (22-29); Chloride 109 mmol/L (98-107); Estimated GFR-MDRD 46; Glucose 183 mg/dL (70-105); Magnesium 2.4 mg/dL (1.6-2.6); Phosphorus 3.4 mg/dL (2.3-4.7); Potassium 4.7 mmol/L (3.5-5.1); Sodium 146 mmol/L (136-145)
--- NOTE | 2017-06-11 09:39 | PDOC.PULCC ---
CCU Progress Note: Subj/Obj - Subjective Date: 06/11/17 Time: 09:37 Subjective: intubated, can't communicate due to sedation - Objective Allergies/Adverse Reactions: Allergies Allergy/AdvReac Type Severity Reaction Status Date / Time No Known Allergies Allergy Verified 06/08/17 18:44 Medications: Current Medications Acetaminophen (Tylenol) 650 mg PO Q4H PRN PRN Reason: Headache/Fever or Pain Albuterol/Ipratropium (Duoneb) 3 ml NEB [id number] [facility] Last Admin: 06/11/17 07:07 Dose: 3 ml Aspirin (Aspirin Chewable) 81 mg PER TUBE DAILY [facility] Last Admin: 06/10/17 09:05 Dose: 81 mg Dextrose/Water (Dextrose 50%) 25 gm SLOW IVP PRN PRN PRN Reason: Hypoglycemia Enoxaparin Sodium (Lovenox) 40 mg SC 0900 [facility] Last Admin: 06/10/17 09:06 Dose: 40 mg Famotidine (Pepcid) 20 mg SLOW IVP BID [facility] Last Admin: 06/10/17 20:59 Dose: 20 mg Glucagon (Glucagon) 1 mg IM PRN PRN PRN Reason: Hypoglycemia Dextrose/Water (D5w) 1,000 mls @ 0 mls/hr IV .Q0M PRN; As Directed PRN Reason: Hypoglycemia Ceftriaxone Sodium 1 gm/ (Syringe 0.4 ml/ Sterile Water) 10 mls @ 120 mls/hr SLOW IVP 2100 [facility] Last Admin: 06/10/17 20:59 Dose: 10 mls Norepinephrine Bitartrate (Levophed) 250 mls @ 0 mls/hr IVPB INF [facility]; Titrate PRN Reason: Protocol Last Admin: 06/11/17 00:01 Dose: 250 mls Fentanyl Citrate (Fentanyl Bolus) 250 mls @ 0 mls/hr IVPB PRN PRN; As Directed PRN Reason: Breakthrough pain Stop: 07/09/17 11:34 Potassium Chloride 40 meq/ (Sodium Chloride) 270 mls @ 135 mls/hr IVPB ASDIR PRN PRN Reason: FOR SERUM K+ 2.5 - 3.5 Potassium Chloride 40 meq/ (Device) 100 mls @ 50 mls/hr IVPB ASDIR PRN PRN Reason: FOR SERUM K+ 2.5 - 3.5 Magnesium Sulfate 1 gm/ Sodium (Chloride) 102 mls @ 102 mls/hr IV PRN PRN PRN Reason: MAG LEVEL 1.4 - 2.0 Magnesium Sulfate 2 gm/ Device 100 mls @ 100 mls/hr IVPB ASDIR PRN PRN Reason: MAGNESIUM < 1.4 Potassium Phosphate 9 mmol/ (Sodium Chloride) 103 mls @ 25.75 mls/hr IVPB ASDIR PRN PRN Reason: Phosphate 1.0-1.8 Potassium Phosphate 12 mmol/ (Sodium Chloride) 254 mls @ 63.5 mls/hr IV ASDIR PRN PRN Reason: Serum phosphate 0.5-0.9 Potassium Phosphate 15 mmol/ (Sodium Chloride) 255 mls @ 63.75 mls/hr IV ASDIR PRN PRN Reason: Serum Phos < 0.5 Dobutamine HCl/Dextrose 500 mg (/ Device) 250 mls @ 0 mls/hr IVPB INF [facility]; As Directed PRN Reason: Protocol Last Admin: 06/11/17 00:01 Dose: 250 mls Fentanyl Citrate 2,000 mcg/ (Sodium Chloride) 100 mls @ 0 mls/hr IV INF [facility] PRN Reason: As Directed Stop: 07/09/17 15:46 Last Admin: 06/11/17 05:51 Dose: 100 mls Doxycycline Hyclate 100 mg/ (Sodium Chloride) 100 mls @ 100 mls/hr IVPB Q12HR [facility] Last Admin: 06/10/17 20:58 Dose: 100 mls Insulin Human Regular (Humulin R) 0 units SC .MILD SLIDING SCALE PRN PRN Reason: Mild Correctional Scale Last Admin: 06/11/17 06:36 Dose: 2 unit Insulin Human Regular (Humulin R) 0 units SC .BEDTIME SLIDING SC PRN PRN Reason: Bedtime Correctional Scale Levothyroxine Sodium (Synthroid) 75 mcg PO 0600 [facility] Last Admin: 06/11/17 05:12 Dose: 75 mcg Lorazepam (Ativan) 2 mg SLOW IVP Q2H PRN PRN Reason: Anxiety to achieve Estrada 2-3 Stop: 07/09/17 11:34 Magnesium Oxide (Magnesium Oxide) 400 mg PO BIDPRN PRN PRN Reason: FOR SERUM MAG 1.4 - 2.0 Magnesium Oxide (Magnesium Oxide) 800 mg PO PRN PRN PRN Reason: FOR SERUM MAG < 1.4 Methylprednisolone Sodium Succinate (Solu-Medrol) 60 mg IVP Q6HR [facility] Last Admin: 06/11/17 05:12 Dose: 60 mg Miscellaneous Medication (Phos-Nak) 1 pkt PO TIDPRN PRN PRN Reason: FOR PHOS LEVEL 1.0 - 1.8 Miscellaneous Medication (Phos-Nak) 2 pkt PO TIDPRN PRN PRN Reason: FOR PHOS LEVEL 0.5 - 1.0 Morphine Sulfate (Morphine) 2 mg SLOW IVP Q2H PRN PRN Reason: Breakthrough pain Ccu Electrolyte (Replacement Protocol) 0 each FS PRN PRN PRN Reason: FOR ELECTROLYTE REPLACEMENT Ondansetron HCl (Zofran) 4 mg IVP Q6H PRN PRN Reason: Nausea/Vomiting Potassium Chloride (K-Dur) 40 meq PO ASDIR PRN PRN Reason: FOR SERUM K+ 2.5 - 3.5 Potassium Chloride (Klor-Con) 40 meq PER TUBE ASDIR PRN PRN Reason: FOR SERUM K+ 2.5-3.5 Propofol (Diprivan) 1,000 mg IV INF PRN; Protocol PRN Reason: TO ACHIEVE ESTRADA SCORE 2-3 Stop: 07/09/17 11:34 Last Admin: 06/11/17 05:17 Dose: 1,000 mg Rocuronium [place] (Zemuron) 50 mg IVP Q30MIN PRN PRN Reason: Agitation Last Admin: 06/10/17 22:10 Dose: 50 mg MAR Reviewed: Yes Vital Signs and I&O: Vital Signs Temp 99.2 F 06/11/17 04:00 Pulse 95 06/11/17 07:08 Resp 20 06/11/17 07:07 BP 113/80 06/10/17 14:25 Pulse Ox 98 06/11/17 07:07 Intake & Output 06/10/17 06/11/17 06/11/17 18:59 06:59 18:59 Intake Total 2220.4 1687.8 Output Total 645 1055 Balance 1575.4 632.8 Weight 171 lb 11.841 oz Intake: Intake, IV Amount 1865.4 1687.8 DOBUTamine 500 mg/250 ml 74.5 71.9 500 mg In Premix Bag 1 bag @ As Directed IVPB INF [facility] Rx#:[id number] Norepinephrine 8 MG/0.9% 603 576 NS 250 ml @ Titrate IVPB INF [facility] Rx#:[id number] Propofol 1000 mg (See 118 126 Protocol) IV INF PRN Rx#: [id number] Sodium Chloride 0.9% 1, 416 000 ml @ 100 mls/hr IV . Q10H [facility] Rx#:[id number] Sodium Chloride 0.9% 1, 595 883 000 ml @ 75 mls/hr IV . [id number] [facility] Rx#:[id number] fentaNYL Citrate/PF 2,000 58.9 30.9 mcg In Sodium Chloride 0 .9% 60 ml @ As Directed IV INF [facility] Rx#:[id number] Oral 0 Tube Feeding 175 Tube Irrigant 180 Output: Output, [place] [id number] Other: Voiding Method Indwelling Catheter Indwelling Catheter # Bowel Movements 0 Vent Setting: Vent Setting SIMV 20/380/peep5 ps12/40% Spontaneous Breathing Test: not done CCU Progress Note: Exam - Physical Exam Constitutional: NAD HEENT: PERRLA, sclera anicteric Neck: no nodes, no JVD Cardiovascular: RRR Focused Respiratory Location: wheezes: Right, Left Gastrointestinal: soft, non-tender Musculoskeletal: edema present Neurological: moves all 4 limbs Lymphatic: no nodes Deviation from normal: sedated Skin: no rash - Labs Result Diagrams: 06/11/17 06:12 06/11/17 08:27 Lab results: Laboratory Results - last 24 hr 06/10/17 06/10/17 06/11/17 12:53 18:19 00:00 WBC RBC Hgb Hct MCV MCH MCHC RDW Plt Count MPV Neutrophils % Neutrophils % (Manual) Lymphocytes % Monocytes % Eosinophils % Basophils % Neutrophils # Lymphocytes # Monocytes # Eosinophils # Basophils # Specimen Type Puncture Site Bicarbonate Actual ABG pH ABG pCO2 ABG pO2 ABG O2 Sat Calc/Froylan ABG O2 Content ABG Base Excess ABG Hematocrit ABG Hemoglobin ABG Oxyhemoglobin ABG Carboxyhemoglobin ABG Methemoglobin ABG Deoxyhemoglobin Dane Test A-a O2 Gradient Sodium Potassium Chloride Ionized Calcium Mode of Support Mechanical Rate Inspired O2 Tidal Volume Pressure Support PEEP or CPAP Carbon Dioxide Anion Gap BUN Creatinine Estimated GFR (MDRD) BUN/Creatinine Ratio Glucose POC Glucose 190 H 151 H 170 H Calcium Phosphorus Magnesium Albumin 06/11/17 06/11/1706/11/17 06:12 06:18 07:30 WBC 8.6 RBC 5.55 H Hgb 17.1 H Hct 55.9 H MCV 101.0 H MCH 30.9 MCHC 30.6 L RDW 13.6 Plt Count 132 MPV 11.5 H Neutrophils % 89.0 H Neutrophils % (Manual) Not Reportable Lymphocytes % 8.7 L Monocytes % 2.3 Eosinophils % 0.0 Basophils % 0.0 Neutrophils # 7.6 H Lymphocytes # 0.7 L Monocytes # 0.2 Eosinophils # 0.0 Basophils # 0.0 Specimen Type ARTERIAL Puncture Site RRA Bicarbonate Actual 27.8 H ABG pH 7.35 ABG pCO2 51.6 H ABG pO2 64.8 L ABG O2 Sat Calc/Froylan 92.7 L ABG O2 Content 21.8 ABG Base Excess 1.0 ABG Hematocrit 53.3 H ABG Hemoglobin 17.2 H ABG Oxyhemoglobin 90.6 L ABG Carboxyhemoglobin 1.6 ABG Methemoglobin 0.7 ABG Deoxyhemoglobin 7.2 H Dane Test POSITIVE A-a O2 Gradient 158.300 H Sodium 147 Potassium 4.4 Chloride 106 Ionized Calcium 1.4 H Mode of Support SIMV.PSV Mechanical Rate 20 Inspired O2 40 Tidal Volume 380 Pressure Support 10 PEEP or CPAP 5.0 Carbon Dioxide Anion Gap BUN Creatinine Estimated GFR (MDRD) BUN/Creatinine Ratio Glucose POC Glucose 152 H Calcium Phosphorus Magnesium Albumin 06/11/17 08:27 WBC RBC Hgb Hct MCV MCH MCHC RDW Plt Count MPV Neutrophils % Neutrophils % (Manual) Lymphocytes % Monocytes % Eosinophils % Basophils % Neutrophils # Lymphocytes # Monocytes # Eosinophils # Basophils # Specimen Type Puncture Site Bicarbonate Actual ABG pH ABG pCO2 ABG pO2 ABG O2 Sat Calc/Froylan ABG O2 Content ABG Base Excess ABG Hematocrit ABG Hemoglobin ABG Oxyhemoglobin ABG Carboxyhemoglobin ABG Methemoglobin ABG Deoxyhemoglobin Dane Test A-a O2 Gradient Sodium 146 H Potassium 4.7 Chloride 109 H Ionized Calcium Mode of Support Mechanical Rate Inspired O2 Tidal Volume Pressure Support PEEP or CPAP Carbon Dioxide 29 Anion Gap 13 BUN 62 H Creatinine 1.43 H Estimated GFR (MDRD) 46 BUN/Creatinine Ratio 43.36 Glucose 183 H POC Glucose Calcium 10.2 Phosphorus 3.4 Magnesium 2.4 Albumin 3.2 L CCU Progress Note: A/P - Problems (1) Acute on chronic respiratory failure with hypoxia and hypercapnia Current Visit: Yes Status: Acute Code(s): J96.21 - ACUTE AND CHRONIC RESPIRATORY FAILURE WITH HYPOXIA; J96.22 - ACUTE AND CHRONIC RESPIRATORY FAILURE WITH HYPERCAPNIA (2) COPD exacerbation Current Visit: Yes Status: Acute Code(s): J44.1 - CHRONIC OBSTRUCTIVE PULMONARY DISEASE W (ACUTE) EXACERBATION (3) Pulmonary hypertension Current Visit: Yes Status: Acute Code(s): I27.20 - PULMONARY HYPERTENSION, UNSPECIFIED (4) Severe tricuspid regurgitation Current Visit: Yes Status: Acute Code(s): I07.1 - RHEUMATIC TRICUSPID INSUFFICIENCY (5) Diabetes type 2, controlled Current Visit: Yes Status: Chronic Code(s): E11.9 - TYPE 2 DIABETES MELLITUS WITHOUT COMPLICATIONS (6) Tobacco abuse Current Visit: Yes Status: Acute Code(s): Z72.0 - TOBACCO USE - Time Spent with Patient Time: 35 min cc time - Plan Plan: Overall, bronchospasm is better, but she is not ready to wean yet CXR demonstrates worse R infiltrate, which may be a reflection of hydration Change NS to 1/2 NS continue steroids, NEBS, Abx, TF Wean levophed cont dobutrex
[2017-06-11] MEDS: Famotidine/PF 20 mg/2ml Vial SLOW IVP SCH ×2 (09:46→20:05)
[2017-06-11] MEDS: Enoxaparin Sodium 40 MG/0.4 ML SYRINGE SC SCH (09:46)
--- NOTE | 2017-06-11 10:26 | RAD ---
ONE VIEW CHEST: HISTORY: Respiratory distress. Ventilated patient. COMPARISON: 06/09/2017 FINDINGS: Portable semiupright chest demonstrates an endotracheal tube and a right-sided central venous cathete r, unchanged in position. Interval placement of nasogastric tube, which extends down the diaphragmat ic. The distal tip is not seen. There is cardiomegaly. There is worsening pulmonary vascular promi nence. There has been interval development of increased alveolar opacification in the right lung. A lveolar opacification is superimposed upon interstitial opacities, which have also progressed when co mpared to the prior exam. No pneumothorax. IMPRESSION: Worsening congestive heart failure. POS: [facility]
[2017-06-11] MEDS: Sodium Chloride 0.45% 1,000 ML IV SCH (10:40)
[2017-06-11] MEDS: Sterile Water 10 ML ONE ×2 (12:10→18:00)
[2017-06-11] MEDS: cefTRIAXone\\ROCEPHIN 1 GM, Syringe 0.4 ML in Sterile Water 9.6 ML SLOW IVP SCH (20:05)
--- NOTE | 2017-06-11 21:01 | PDOC.PN ---
- Subjective Encounter Start Date: 06/11/17 Encounter Start Time: 13:30 Patient seen and examined. Sedated on Vent. No overnight events - Objective Resuscitation Status: Resuscitation Status FULL:Full Resuscitation MAR Reviewed: Yes Vital Signs & Weight: Vital Signs (12 hours) Temp Pulse Resp BP Pulse Ox 06/11/17 18:45 80 06/11/17 18:42 82 20 98 06/11/17 18:00 20 06/11/17 16:06 76 102/68 06/11/17 16:00 99.8 F H 20 06/11/17 15:58 75 20 99 06/11/17 14:00 20 06/11/17 12:00 100.0 F H 20 06/11/17 10:36 88 115/72 06/11/17 10:35 83 30 H 98 06/11/17 10:00 20 Weight Admit Weight 168 lb Weight 171 lb 11.841 oz Most Recent Monitor Data Heart Rate from ECG 85 NIBP 109/66 NIBP BP-Mean 81 Respiration from ECG 20 SpO2 98 I&O: 06/10/17 06/11/17 06/12/17 06:59 06:59 06:59 Intake Total 3023.9 3908.2 1730.1 Output Total 1177 1700 942 Balance 1846.9 2208.2 788.1 Result Diagrams: 06/11/17 06:12 06/11/17 08:27 Additional Labs: Accuchecks 06/11/17 06/11/17 06/11/17 16:47 10:51 06:18 POC Glucose 150 H 163 H 152 H 06/11/17 00:00 POC Glucose 170 H EKG Reviewed by me: Yes (Tele SR) Phys Exam - Physical Examination Constitutional: NAD Respiratory: wheezing present (improving) Coarse BS B/L, Symmetrical, Bibasilar rales Cardiovascular: RRR, no rub no heaves/pulsations Gastrointestinal: soft, non-tender, no distention, positive bowel sounds Musculoskeletal: edema present Neuro/Psych - Cannot assess due to sedation Dx/Plan - Plan continue antibiotics, respiratory therapy, DVT proph w/lovenox, DVT proph w/SCDs IMPRESSION: 1. Acute hypoxic respiratory failure secondary to chronic obstructive pulmonary disease exacerbation. [facility] 2. Acue on chronic diastolic heart failure 3. Acute kidney injury on chronic kidney disease stage 2 4. Hypotension - on pressors 5. Elevated troponins, probably secondary to demand ischemia. 6. Hypertension. 7. Diabetes mellitus, type 2. - on sliding scale 8. Cannabis abuse. 9. Ongoing tobacco abuse. 10. Pulmonary hypertension. 11. Hypothyroidism following thyroidectomy. 12. Mild protein calorie malnutrition. 13. Severe tricuspid regurgitation with right-sided heart failure. 14. Abnormal liver function tests, probably secondary to passive hepatic congestion. PLAN: * Cardio/Pulm following * IVF changed to 1/2 NS * On Levophed/Dobutamine/Steroids * On Mech Vent * AM labs * Cont current meds as below Review of Systems - Review of Systems Other: Cannot assess due to sedation - Medications/Allergies Allergies/Adverse Reactions: Allergies Allergy/AdvReac Type Severity Reaction Status Date / Time No Known Allergies Allergy Verified 06/08/17 18:44 Medications: Current Medications Acetaminophen (Tylenol) 650 mg PO Q4H PRN PRN Reason: Headache/Fever or Pain Albuterol/Ipratropium (Duoneb) 3 ml NEB [id number] [facility] Last Admin: 06/11/17 18:42 Dose: 3 ml Aspirin (Aspirin Chewable) 81 mg PER TUBE DAILY [facility] Last Admin: 06/11/17 09:46 Dose: 81 mg Dextrose/Water (Dextrose 50%) 25 gm SLOW IVP PRN PRN PRN Reason: Hypoglycemia Enoxaparin Sodium (Lovenox) 40 mg SC 0900 [facility] Last Admin: 06/11/17 09:46 Dose: 40 mg Famotidine (Pepcid) 20 mg SLOW IVP BID [facility] Last Admin: 06/11/17 20:05 Dose: 20 mg Glucagon (Glucagon) 1 mg IM PRN PRN PRN Reason: Hypoglycemia Dextrose/Water (D5w) 1,000 mls @ 0 mls/hr IV .Q0M PRN; As Directed PRN Reason: Hypoglycemia Ceftriaxone Sodium 1 gm/ (Syringe 0.4 ml/ Sterile Water) 10 mls @ 120 mls/hr SLOW IVP 2100 [facility] Last Admin: 06/11/17 20:05 Dose: 10 mls Norepinephrine Bitartrate (Levophed) 250 mls @ 0 mls/hr IVPB INF FEROZ; Titrate PRN Reason: Protocol Last Admin: 06/11/17 11:34 Dose: 250 mls Fentanyl Citrate (Fentanyl Bolus) 250 mls @ 0 mls/hr IVPB PRN PRN; As Directed PRN Reason: Breakthrough pain Stop: 07/09/17 11:34 Potassium Chloride 40 meq/ (Sodium Chloride) 270 mls @ 135 mls/hr IVPB ASDIR PRN PRN Reason: FOR SERUM K+ 2.5 - 3.5 Potassium Chloride 40 meq/ (Device) 100 mls @ 50 mls/hr IVPB ASDIR PRN PRN Reason: FOR SERUM K+ 2.5 - 3.5 Magnesium Sulfate 1 gm/ Sodium (Chloride) 102 mls @ 102 mls/hr IV PRN PRN PRN Reason: MAG LEVEL 1.4 - 2.0 Magnesium Sulfate 2 gm/ Device 100 mls @ 100 mls/hr IVPB ASDIR PRN PRN Reason: MAGNESIUM < 1.4 Potassium Phosphate 9 mmol/ (Sodium Chloride) 103 mls @ 25.75 mls/hr IVPB ASDIR PRN PRN Reason: Phosphate 1.0-1.8 Potassium Phosphate 12 mmol/ (Sodium Chloride) 254 mls @ 63.5 mls/hr IV ASDIR PRN PRN Reason: Serum phosphate 0.5-0.9 Potassium Phosphate 15 mmol/ (Sodium Chloride) 255 mls @ 63.75 mls/hr IV ASDIR PRN PRN Reason: Serum Phos < 0.5 Dobutamine HCl/Dextrose 500 mg (/ Device) 250 mls @ 0 mls/hr IVPB INF FEROZ; As Directed PRN Reason: Protocol Last Admin: 06/11/17 00:01 Dose: 250 mls Fentanyl Citrate 2,000 mcg/ (Sodium Chloride) 100 mls @ 0 mls/hr IV INF FEROZ PRN Reason: As Directed Stop: 07/09/17 15:46 Last Admin: 06/11/17 05:51 Dose: 100 mls Doxycycline Hyclate 100 mg/ (Sodium Chloride) 100 mls @ 100 mls/hr IVPB Q12HR [facility] Last Admin: 06/11/17 20:04 Dose: 100 mls Sodium Chloride (1/2 Normal Saline) 1,000 mls @ 75 mls/hr IV .[id number] [facility] Last Admin: 06/11/17 10:40 Dose: 1,000 mls Insulin Human Regular (Humulin R) 0 units SC .MILD SLIDING SCALE PRN PRN Reason: Mild Correctional Scale Last Admin: 06/11/17 17:21 Dose: 2 unit Insulin Human Regular (Humulin R) 0 units SC .BEDTIME SLIDING SC PRN PRN Reason: Bedtime Correctional Scale Levothyroxine Sodium (Synthroid) 75 mcg PO 0600 [facility] Last Admin: 06/11/17 05:12 Dose: 75 mcg Lorazepam (Ativan) 2 mg SLOW IVP Q2H PRN PRN Reason: Anxiety to achieve Estrada 2-3 Stop: 07/09/17 11:34 Magnesium Oxide (Magnesium Oxide) 400 mg PO BIDPRN PRN PRN Reason: FOR SERUM MAG 1.4 - 2.0 Magnesium Oxide (Magnesium Oxide) 800 mg PO PRN PRN PRN Reason: FOR SERUM MAG < 1.4 Methylprednisolone Sodium Succinate (Solu-Medrol) 60 mg IVP Q6HR [facility] Last Admin: 06/11/17 18:00 Dose: 60 mg Miscellaneous Medication (Phos-Nak) 1 pkt PO TIDPRN PRN PRN Reason: FOR PHOS LEVEL 1.0 - 1.8 Miscellaneous Medication (Phos-Nak) 2 pkt PO TIDPRN PRN PRN Reason: FOR PHOS LEVEL 0.5 - 1.0 Morphine Sulfate (Morphine) 2 mg SLOW IVP Q2H PRN PRN Reason: Breakthrough pain Ccu Electrolyte (Replacement Protocol) 0 each FS PRN PRN PRN Reason: FOR ELECTROLYTE REPLACEMENT Ondansetron HCl (Zofran) 4 mg IVP Q6H PRN PRN Reason: Nausea/Vomiting Potassium Chloride (K-Dur) 40 meq PO ASDIR PRN PRN Reason: FOR SERUM K+ 2.5 - 3.5 Potassium Chloride (Klor-Con) 40 meq PER TUBE ASDIR PRN PRN Reason: FOR SERUM K+ 2.5-3.5 Propofol (Diprivan) 1,000 mg IV INF PRN; Protocol PRN Reason: TO ACHIEVE ESTRADA SCORE 2-3 Stop: 07/09/17 11:34 Last Admin: 06/11/17 14:58 Dose: 1,000 mg Rocuronium [place] (Zemuron) 50 mg IVP Q30MIN PRN PRN Reason: Agitation Last Admin: 06/10/17 22:10 Dose: 50 mg
[2017-06-12] MEDS: Norepinephrine 8 MG/0.9% NS 250 ML IVPB SCH ×2 (00:15→14:28)
[2017-06-12] MEDS: methylPREDNISolone Sod Succ/PF 125 MG/2 ML VIAL IVP SCH ×2 (00:15→06:27)
[2017-06-12] MEDS: Propofol 1,000 MG/100 ML VIAL IV PRN ×2 (00:15→10:36)
[2017-06-12 05:47] LABS: Anion Gap 13 mmol/L (10-20); BUN (Urea Nitrogen) 55 mg/dL (9.8-20.1); Calc. Creatinine Clearance 69 mL/min (70-130); Calcium 10.1 mg/dL (7.8-10.44); Carbon Dioxide 28 mmol/L (22-29); Chloride 111 mmol/L (98-107); Estimated GFR-MDRD 60; Glucose 167 mg/dL (70-105); Potassium 5.1 mmol/L (3.5-5.1); Sodium 147 mmol/L (136-145)
[2017-06-12 06:10] LABS: #Lymphocytes 0.7 thou/uL (1.20-3.40); #Monocytes 0.1 thou/uL (0.11-0.59); #Neutrophils 6.5 thou/uL (1.40-6.50); %Basophils 0.1 % (0.0-1.0); %Eosinophils 0.1 % (0.0-10.0); %Lymphocytes 9.7 % (21.0-51.0); %Monocytes 1.9 % (0.0-10.0); %Neutrophils 88.2 % (42.0-75.0); Band 2 % (5-11); Hemoglobin 15.8 g/dL (12.0-16.0); Lymphocytes 7 % (21-51); MDiff Complete? YES; Macrocytosis SLIGHT = 6-15 cells (100X) (0-5/hpf); Mean Corpuscular HGB CONC 31.1 g/dL (32.0-36.0); Mean Corpuscular Hemoglobin 31.6 pg (27.0-31.0); Monocytes 4 % (0-10); Neutrophil 86 % (42-75); PLT Morphology Comment Appears Decreased; Platelet Count 104 thou/uL (130-400); RBC Distribution Width 13.6 % (11.5-14.5); Reactive Lymphocytes 1 % (0-10); White Blood Cell (WBC) Count 7.4 thou/uL (4.8-10.8)
[2017-06-12] MEDS: Insulin Regular 300 UNITS/3 ML VIAL SC PRN ×2 (06:23→12:59)
[2017-06-12] MEDS: Sodium Chloride 0.45% 1,000 ML IV SCH ×2 (06:27→13:07)
[2017-06-12] MEDS: Levothyroxine Sodium 75 MCG TAB PO SCH (06:27)
[2017-06-12 07:07] LABS: Actual Bicarbonate (HCO3a) 28.3 mEq/L (22-26); Base Excess (BEa) 2.4 mEq/L (0 (+/-) 2.5); CO2 Tension 48.2 mmHg (35.0-45.0); Calcium, Ionized 1.5 mmol/L (1.12-1.30); Hematocrit-ABG 49.9 % (36.0-47.0); Hemoglobin (Hb) 16.2 g/dL (12.0-16.0); O2 Tension (PaO2) 59.1 mmHg (80.0-100.0); pH, Arterial 7.39 (7.35-7.45)
[2017-06-12 07:16] LABS: Puncture Site RR
--- NOTE | 2017-06-12 08:52 | RAD ---
PORTABLE CHEST ONE VIEW: 06/12/2017 3:40 a.m. HISTORY: Respiratory failure. COMPARISON: 06/11/2017 FINDINGS: Line and tube placements are unchanged in position. The heart is enlarged. There is mild pulmonary vascular congestion. Patchy infiltrates are seen in the lower lung gilmore. No pneumothoraces are id entified. POS: [facility]
--- NOTE | 2017-06-12 09:12 | PRG ---
DATE OF SERVICE: 06/12/2017 A 35 minutes critical care time. SUBJECTIVE: The patient remains intubated on mechanical ventilation. There has been no acute change s overnight. PHYSICAL EXAMINATION: VITAL SIGNS: Temperature is 99.2, pulse 90, blood pressure 104/72. She remains on a dobutamine drip at 2.5 mcg per kilogram per minute and norepinephrine drip at 10 mcg per minute. A 24-hour intake 2 120, output 1932. Weight 171 pounds. HEENT: Pupils react. Sclerae are anicteric. Oropharynx clear. NECK: No JVD. LUNGS: Expiratory wheezing bilaterally. CARDIOVASCULAR: S1, S2 regular with 2/6 systolic murmur. ABDOMEN: Soft, nontender. EXTREMITIES: Trace edema throughout. NEUROLOGIC: She moves all 4 extremities. LABORATORY DATA: Sodium 147, potassium 5.1, chloride 111, CO2 28, BUN 55, creatinine 1.1, glucose 16 7. White blood cell count 7.4, hemoglobin 15.8, hematocrit 50.8, platelet count 104. PH 7.39, pCO2 of 48, pO2 of 59 on SIMV rate 20, tidal volume 380, PEEP 5, pressure support 10, FIO2 30%. X-RAY FINDINGS: Chest x-ray shows no significant change. ASSESSMENT: 1. Acute hypoxic respiratory failure requiring mechanical ventilation. 2. Chronic obstructive pulmonary disease with exacerbation. 3. Pulmonary hypertension. 4. Severe tricuspid regurgitation. 5. Diabetes mellitus type 2. PLAN: 1. Decrease steroid dose in half. 2. Decrease respiratory rate and increased tidal volume. 3. Continue half normal saline. 4. Wean Levophed. 5. Continue Dobutrex.
[2017-06-12] MEDS ORDERED: Sterile Water 0 ML ONE (09:47)
[2017-06-12] MEDS: Famotidine/PF 20 mg/2ml Vial SLOW IVP SCH ×2 (09:48→20:12)
[2017-06-12] MEDS: Enoxaparin Sodium 40 MG/0.4 ML SYRINGE SC SCH (09:48)
--- NOTE | 2017-06-12 14:36 | PDOC.PN ---
- Subjective Encounter Start Date: 06/12/17 Encounter Start Time: 12:10 -: non-verbal Pt is intubated and Sedated. - Objective Resuscitation Status: Resuscitation Status FULL:Full Resuscitation MAR Reviewed: Yes Vital Signs & Weight: Vital Signs (12 hours) Temp Pulse Resp BP Pulse Ox 06/12/17 12:19 93 95/63 06/12/17 12:00 100.2 F H 16 06/12/17 10:07 88 103/68 06/12/17 10:00 16 06/12/17 08:47 89 107/75 06/12/17 08:00 99.2 F 96 20 99 06/12/17 06:54 82 20 98 06/12/17 06:00 20 06/12/17 04:00 99.2 F 20 06/12/17 03:07 89 20 96 Weight Admit Weight 168 lb Weight 171 lb 11.841 oz Most Recent Monitor Data Heart Rate from ECG 89 NIBP 93/63 NIBP BP-Mean 68 Respiration from ECG 16 SpO2 96 I&O: 06/11/17 06/12/17 06/13/17 06:59 06:59 06:59 Intake Total 3908.2 2120.1 110 Output Total 1700 1932 520 Balance 2208.2 188.1 -410 Result Diagrams: 06/12/17 05:10 06/12/17 05:10 Additional Labs: Accuchecks 06/12/17 06/12/17 06/11/17 12:22 05:22 16:47 POC Glucose 164 H 151 H 150 H Phys Exam - Physical Examination Neck: no nodes, no JVD Respiratory: wheezing present Cardiovascular: RRR, no significant murmur Gastrointestinal: soft, non-tender Musculoskeletal: no edema, pulses present Lymphatic: no nodes Skin: no rash, normal turgor Dx/Plan (1) ALICIA (acute kidney injury) Code(s): N17.9 - ACUTE KIDNEY FAILURE, UNSPECIFIED Status: Acute (2) Acute on chronic respiratory failure with hypoxia and hypercapnia Code(s): J96.21 - ACUTE AND CHRONIC RESPIRATORY FAILURE WITH HYPOXIA; J96.22 - ACUTE AND CHRONIC RESPIRATORY FAILURE WITH HYPERCAPNIA Status: Acute (3) COPD exacerbation Code(s): J44.1 - CHRONIC OBSTRUCTIVE PULMONARY DISEASE W (ACUTE) EXACERBATION Status: Acute (4) Pulmonary hypertension Code(s): I27.20 - PULMONARY HYPERTENSION, UNSPECIFIED Status: Acute (5) Severe tricuspid regurgitation Code(s): I07.1 - RHEUMATIC TRICUSPID INSUFFICIENCY Status: Chronic (6) Tobacco abuse Code(s): Z72.0 - TOBACCO USE Status: Chronic (7) Diabetes type 2, controlled Code(s): E11.9 - TYPE 2 DIABETES MELLITUS WITHOUT COMPLICATIONS Status: Chronic Qualifiers: Diabetes mellitus complication status: without complication (8) Acute on chronic diastolic (congestive) heart failure Code(s): I50.33 - ACUTE ON CHRONIC DIASTOLIC (CONGESTIVE) HEART FAILURE Status : Acute (9) Compensated respiratory acidosis Code(s): E87.2 - ACIDOSIS Status: Acute - Plan cont current plan of care, pierce catheter, DVT proph w/lovenox IMPRESSION: 1. Acute hypoxic respiratory failure secondary to chronic obstructive pulmonary disease exacerbation. on Mech Vent 2. Acue on chronic diastolic heart failure 3. Acute kidney injury on chronic kidney disease stage 2 4. Hypotension - on pressors 5. Elevated troponins, probably secondary to demand ischemia. 6. Hypertension. 7. Diabetes mellitus, type 2. - on sliding scale 8. Cannabis abuse. 9. Ongoing tobacco abuse. 10. Pulmonary hypertension. 11. Hypothyroidism following thyroidectomy. 12. Mild protein calorie malnutrition. 13. Severe tricuspid regurgitation with right-sided heart failure. 14. Abnormal liver function tests, probably secondary to passive hepatic congestion. PLAN: renal fucntions improving, continue IV fluids. Cardio/Pulm following trying to wean off Levophed but continue Dobutamine and Steroids per Pulmonary. On Mech Vent will wean off when able. AM labs Cont current meds as below. Review of Systems - Review of Systems Other: Unable to Do ROS due to intubation and sedation. - Medications/Allergies Allergies/Adverse Reactions: Allergies Allergy/AdvReac Type Severity Reaction Status Date / Time No Known Allergies Allergy Verified 06/08/17 18:44 Medications: Current Medications Acetaminophen (Tylenol) 650 mg PO Q4H PRN PRN Reason: Headache/Fever or Pain Albuterol/Ipratropium (Duoneb) 3 ml NEB [id number] [facility] Last Admin: 06/12/17 10:06 Dose: 3 ml Aspirin (Aspirin Chewable) 81 mg PER TUBE DAILY [facility] Last Admin: 06/12/17 09:48 Dose: 81 mg Dextrose/Water (Dextrose 50%) 25 gm SLOW IVP PRN PRN PRN Reason: Hypoglycemia Enoxaparin Sodium (Lovenox) 40 mg SC 0900 [facility] Last Admin: 06/12/17 09:48 Dose: 40 mg Famotidine (Pepcid) 20 mg SLOW IVP BID [facility] Last Admin: 06/12/17 09:48 Dose: 20 mg Glucagon (Glucagon) 1 mg IM PRN PRN PRN Reason: Hypoglycemia Dextrose/Water (D5w) 1,000 mls @ 0 mls/hr IV .Q0M PRN; As Directed PRN Reason: Hypoglycemia Ceftriaxone Sodium 1 gm/ (Syringe 0.4 ml/ Sterile Water) 10 mls @ 120 mls/hr SLOW IVP 2100 [facility] Last Admin: 06/11/17 20:05 Dose: 10 mls Norepinephrine Bitartrate (Levophed) 250 mls @ 0 mls/hr IVPB INF FEROZ; Titrate PRN Reason: Protocol Last Admin: 06/12/17 14:28 Dose: 250 mls Fentanyl Citrate (Fentanyl Bolus) 250 mls @ 0 mls/hr IVPB PRN PRN; As Directed PRN Reason: Breakthrough pain Stop: 07/09/17 11:34 Potassium Chloride 40 meq/ (Sodium Chloride) 270 mls @ 135 mls/hr IVPB ASDIR PRN PRN Reason: FOR SERUM K+ 2.5 - 3.5 Potassium Chloride 40 meq/ (Device) 100 mls @ 50 mls/hr IVPB ASDIR PRN PRN Reason: FOR SERUM K+ 2.5 - 3.5 Magnesium Sulfate 1 gm/ Sodium (Chloride) 102 mls @ 102 mls/hr IV PRN PRN PRN Reason: MAG LEVEL 1.4 - 2.0 Magnesium Sulfate 2 gm/ Device 100 mls @ 100 mls/hr IVPB ASDIR PRN PRN Reason: MAGNESIUM < 1.4 Potassium Phosphate 9 mmol/ (Sodium Chloride) 103 mls @ 25.75 mls/hr IVPB ASDIR PRN PRN Reason: Phosphate 1.0-1.8 Potassium Phosphate 12 mmol/ (Sodium Chloride) 254 mls @ 63.5 mls/hr IV ASDIR PRN PRN Reason: Serum phosphate 0.5-0.9 Potassium Phosphate 15 mmol/ (Sodium Chloride) 255 mls @ 63.75 mls/hr IV ASDIR PRN PRN Reason: Serum Phos < 0.5 Dobutamine HCl/Dextrose 500 mg (/ Device) 250 mls @ 0 mls/hr IVPB INF FEROZ; As Directed PRN Reason: Protocol Last Admin: 06/11/17 00:01 Dose: 250 mls Fentanyl Citrate 2,000 mcg/ (Sodium Chloride) 100 mls @ 0 mls/hr IV INF FEROZ PRN Reason: As Directed Stop: 07/09/17 15:46 Last Admin: 06/11/17 22:29 Dose: 100 mls Doxycycline Hyclate 100 mg/ (Sodium Chloride) 100 mls @ 100 mls/hr IVPB Q12HR [facility] Last Admin: 06/12/17 09:48 Dose: 100 mls Sodium Chloride (1/2 Normal Saline) 1,000 mls @ 75 mls/hr IV .[id number] [facility] Last Admin: 06/12/17 13:07 Dose: 1,000 mls Insulin Human Regular (Humulin R) 0 units SC .MILD SLIDING SCALE PRN PRN Reason: Mild Correctional Scale Last Admin: 06/12/17 12:59 Dose: 2 unit Insulin Human Regular (Humulin R) 0 units SC .BEDTIME SLIDING SC PRN PRN Reason: Bedtime Correctional Scale Levothyroxine Sodium (Synthroid) 75 mcg PO 0600 [facility] Last Admin: 06/12/17 06:27 Dose: 75 mcg Lorazepam (Ativan) 2 mg SLOW IVP Q2H PRN PRN Reason: Anxiety to achieve Estrada 2-3 Stop: 07/09/17 11:34 Magnesium Oxide (Magnesium Oxide) 400 mg PO BIDPRN PRN PRN Reason: FOR SERUM MAG 1.4 - 2.0 Magnesium Oxide (Magnesium Oxide) 800 mg PO PRN PRN PRN Reason: FOR SERUM MAG < 1.4 Methylprednisolone Sodium Succinate (Solu-Medrol) 30 mg IVP 0300,0900,1500, 2100 [facility] Last Admin: 06/12/17 14:32 Dose: 30 mg Miscellaneous Medication (Phos-Nak) 1 pkt PO TIDPRN PRN PRN Reason: FOR PHOS LEVEL 1.0 - 1.8 Miscellaneous Medication (Phos-Nak) 2 pkt PO TIDPRN PRN PRN Reason: FOR PHOS LEVEL 0.5 - 1.0 Morphine Sulfate (Morphine) 2 mg SLOW IVP Q2H PRN PRN Reason: Breakthrough pain Ccu Electrolyte (Replacement Protocol) 0 each FS PRN PRN PRN Reason: FOR ELECTROLYTE REPLACEMENT Ondansetron HCl (Zofran) 4 mg IVP Q6H PRN PRN Reason: Nausea/Vomiting Potassium Chloride (K-Dur) 40 meq PO ASDIR PRN PRN Reason: FOR SERUM K+ 2.5 - 3.5 Potassium Chloride (Klor-Con) 40 meq PER TUBE ASDIR PRN PRN Reason: FOR SERUM K+ 2.5-3.5 Propofol (Diprivan) 1,000 mg IV INF PRN; Protocol PRN Reason: TO ACHIEVE ESTRADA SCORE 2-3 Stop: 07/09/17 11:34 Last Admin: 06/12/17 10:36 Dose: 1,000 mg
[2017-06-12] MEDS: fentaNYL Citrate/PF 2,000 MCG in Sodium Chloride 0.9% 60 ML IV SCH (17:57)
--- NOTE | 2017-06-12 18:56 | PRG ---
DATE OF SERVICE: 06/12/2017 SUBJECTIVE: Brett remains intubated on the ventilator and sedated. PHYSICAL EXAMINATION: VITAL SIGNS: Her blood pressure is 100/70, pulse 87 regular. He is on norepinephrine drip. LUNGS: Clear. CARDIAC: Normal S1, normal S2. ABDOMEN: Soft, nontender. EXTREMITIES: There is no edema. LABORATORY DATA: Her hemoglobin is up to 15.8. ASSESSMENT: 1. Pulmonary hypertension. 2. Respiratory failure. 3. Chronic obstructive pulmonary disease. PLAN: Continue supportive care. Prognosis guarded. Dr. Saldana to see tomorrow.
[2017-06-12] MEDS: cefTRIAXone\\ROCEPHIN 1 GM, Syringe 0.4 ML in Sterile Water 9.6 ML SLOW IVP SCH (21:21)
[2017-06-13] MEDS: DOBUTamine 500 mg/250 ml 500 MG in Premix Bag 1 BAG IVPB SCH (00:19)
[2017-06-13] MEDS: Sodium Chloride 0.45% 1,000 ML IV SCH (00:22)
[2017-06-13] MEDS: Propofol 1,000 MG/100 ML VIAL IV PRN (02:58)
[2017-06-13 05:39] LABS: Anion Gap 9 mmol/L (10-20); BUN (Urea Nitrogen) 54 mg/dL (9.8-20.1); Calc. Creatinine Clearance 91 mL/min (70-130); Calcium 9.3 mg/dL (7.8-10.44); Carbon Dioxide 26 mmol/L (22-29); Chloride 109 mmol/L (98-107); Estimated GFR-MDRD 79; Glucose 148 mg/dL (70-105); Potassium 4.3 mmol/L (3.5-5.1); Sodium 140 mmol/L (136-145)
[2017-06-13 05:42] LABS: #Lymphocytes 0.7 thou/uL (1.20-3.40); #Monocytes 0.5 thou/uL (0.11-0.59); #Neutrophils 6.1 thou/uL (1.40-6.50); %Basophils 0.3 % (0.0-1.0); %Eosinophils 0.1 % (0.0-10.0); %Lymphocytes 9.2 % (21.0-51.0); %Monocytes 6.5 % (0.0-10.0); Hemoglobin 14.9 g/dL (12.0-16.0); Mean Corpuscular HGB CONC 30.3 g/dL (32.0-36.0); Mean Platelet Volume 12.1 fL (7.4-10.4); Platelet Count 79 thou/uL (130-400); RBC Distribution Width 13.6 % (11.5-14.5); White Blood Cell (WBC) Count 7.2 thou/uL (4.8-10.8)
[2017-06-13] MEDS: Levothyroxine Sodium 75 MCG TAB PO SCH (06:13)
[2017-06-13 07:19] LABS: Base Excess (BEa) 1.2 mEq/L (0 (+/-) 2.5); CO2 Tension 58.4 mmHg (35.0-45.0); Calcium, Ionized 1.5 mmol/L (1.12-1.30); Hematocrit-ABG 50.5 % (36.0-47.0); O2 Tension (PaO2) 58.9 mmHg (80.0-100.0); pH, Arterial 7.31 (7.35-7.45)
[2017-06-13 07:21] LABS: Puncture Site RB
[2017-06-13] MEDS ORDERED: Furosemide 40 MG/4 ML VIAL SLOW IVP SCH (09:00)
--- NOTE | 2017-06-13 09:10 | RAD ---
PORTABLE CHEST 1 VIEW: DATE: 06/13/17. TIME: 5:17 a.m. HISTORY: Respiratory failure. FINDINGS/IMPRESSION: Comparison is made with the exam of the previous day. Line and tube placements are unchanged in posi tion. The heart size is enlarged. There is mild pulmonary vascular congestion with patchy airspace disease in the lower lung gil[place]. No pneumothoraces are identified. POS: [facility]
[2017-06-13] MEDS: Norepinephrine 8 MG/0.9% NS 250 ML IVPB SCH (09:26)
[2017-06-13] MEDS: Famotidine/PF 20 mg/2ml Vial SLOW IVP SCH ×2 (09:28→21:11)
[2017-06-13] MEDS: Sildenafil Citrate 20 MG TAB PER TUBE SCH ×3 (10:23→21:14)
--- NOTE | 2017-06-13 10:37 | PDOC.PN ---
- Subjective Encounter Start Date: 06/13/17 Encounter Start Time: 09:30 -: non-verbal Patient is Intubated and Sedated. - Objective Resuscitation Status: Resuscitation Status FULL:Full Resuscitation MAR Reviewed: Yes Vital Signs & Weight: Vital Signs (12 hours) Temp Pulse Resp BP Pulse Ox 06/13/17 08:06 93 101/65 06/13/17 07:58 98.9 F 90 16 95 06/13/17 06:00 16 06/13/17 04:00 100.5 F H 16 06/13/17 02:28 89 06/13/17 02:27 89 16 96 06/13/17 02:00 16 06/13/17 00:00 99.5 F 16 Weight Admit Weight 168 lb Weight 178 lb 9.191 oz Most Recent Monitor Data Heart Rate from ECG 95 NIBP 96/62 NIBP BP-Mean 70 Respiration from ECG 16 SpO2 92 I&O: 06/12/17 06/13/17 06/14/17 06:59 06:59 06:59 Intake Total 2120.1 3802.5 Output Total 1932 1515 Balance 188.1 2287.5 Result Diagrams: 06/13/17 04:50 06/13/17 04:50 Additional Labs: Accuchecks 06/13/17 06/12/17 06/12/17 00:14 17:09 12:22 POC Glucose 128 H 145 H 164 H 06/12/17 00:24 POC Glucose 144 H Radiology Reviewed by me: Yes Phys Exam - Physical Examination Neck: no JVD Respiratory: no wheezing, no rales Cardiovascular: RRR, no significant murmur Gastrointestinal: soft, non-tender, no distention Musculoskeletal: no edema, pulses present Dx/Plan (1) ALICIA (acute kidney injury) Code(s): N17.9 - ACUTE KIDNEY FAILURE, UNSPECIFIED Status: Acute Plan: This has improved, nephrology following. No other concnrs avoid nephrotoxic meds. Continue IV fluids. (2) Acute on chronic respiratory failure with hypoxia and hypercapnia Code(s): J96.21 - ACUTE AND CHRONIC RESPIRATORY FAILURE WITH HYPOXIA; J96.22 - ACUTE AND CHRONIC RESPIRATORY FAILURE WITH HYPERCAPNIA Status: Acute Plan: ABG looks good improveemnt, persistant retenion of CO2 on ABG today, Pulmoanry on Board will follow recommedations, Continue Steroids IV and IV antibiotics. (3) COPD exacerbation Code(s): J44.1 - CHRONIC OBSTRUCTIVE PULMONARY DISEASE W (ACUTE) EXACERBATION Status: Acute Plan: Stbale, ABG looks improved, Will Follow above Pulmonary recommedations. (4) Pulmonary hypertension Code(s): I27.20 - PULMONARY HYPERTENSION, UNSPECIFIED Status: Acute Plan: Stbale today, will continue to Follow Pulmonary recommedations, Planned for Rivelto today (5) Severe tricuspid regurgitation Code(s): I07.1 - RHEUMATIC TRICUSPID INSUFFICIENCY Status: Chronic (6) Diabetes type 2, controlled Code(s): E11.9 - TYPE 2 DIABETES MELLITUS WITHOUT COMPLICATIONS Status: Chronic Qualifiers: Diabetes mellitus complication status: without complication Plan: Well controlled, Will continue with levmir and SSI. Plan to keep BG 140-180 (7) Acute on chronic diastolic (congestive) heart failure Code(s): I50.33 - ACUTE ON CHRONIC DIASTOLIC (CONGESTIVE) HEART FAILURE Status : Acute Plan: Improved, with good diuresis, No third spacing noted. No pedal edema. Will continue to Monitor. pt on Dobutrex (8) Compensated respiratory acidosis Code(s): E87.2 - ACIDOSIS Status: Acute - Plan cont current plan of care, continue antibiotics, DVT proph w/lovenox * . - Discharge Day Encounter end time: 10:00 Review of Systems - Review of Systems Other: Pt intubated and sedated, Not following commands Unable to get ROS - Medications/Allergies Allergies/Adverse Reactions: Allergies Allergy/AdvReac Type Severity Reaction Status Date / Time No Known Allergies Allergy Verified 06/08/17 18:44 Medications: Current Medications Acetaminophen (Tylenol) 650 mg PO Q4H PRN PRN Reason: Headache/Fever or Pain Albuterol/Ipratropium (Duoneb) 3 ml NEB [id number] REPLACED BY [facility] Last Admin: 06/13/17 08:05 Dose: 3 ml Aspirin (Aspirin Chewable) 81 mg PER TUBE DAILY REPLACED BY [facility] Last Admin: 06/13/17 09:27 Dose: 81 mg Dextrose/Water (Dextrose 50%) 25 gm SLOW IVP PRN PRN PRN Reason: Hypoglycemia Famotidine (Pepcid) 20 mg SLOW IVP BID REPLACED BY [facility] Last Admin: 06/13/17 09:28 Dose: 20 mg Furosemide (Lasix) 40 mg SLOW IVP 0900 FEROZ Stop: 06/13/17 11:00 Last Admin: 06/13/17 09:30 Dose: 40 mg Glucagon (Glucagon) 1 mg IM PRN PRN PRN Reason: Hypoglycemia Dextrose/Water (D5w) 1,000 mls @ 0 mls/hr IV .Q0M PRN; As Directed PRN Reason: Hypoglycemia Ceftriaxone Sodium 1 gm/ (Syringe 0.4 ml/ Sterile Water) 10 mls @ 120 mls/hr SLOW IVP 2100 FEROZ Last Admin: 06/12/17 21:21 Dose: 10 mls Norepinephrine Bitartrate (Levophed) 250 mls @ 0 mls/hr IVPB INF FEROZ; Titrate PRN Reason: Protocol Last Admin: 06/13/17 09:26 Dose: 250 mls Fentanyl Citrate (Fentanyl Bolus) 250 mls @ 0 mls/hr IVPB PRN PRN; As Directed PRN Reason: Breakthrough pain Stop: 07/09/17 11:34 Potassium Chloride 40 meq/ (Sodium Chloride) 270 mls @ 135 mls/hr IVPB ASDIR PRN PRN Reason: FOR SERUM K+ 2.5 - 3.5 Potassium Chloride 40 meq/ (Device) 100 mls @ 50 mls/hr IVPB ASDIR PRN PRN Reason: FOR SERUM K+ 2.5 - 3.5 Magnesium Sulfate 1 gm/ Sodium (Chloride) 102 mls @ 102 mls/hr IV PRN PRN PRN Reason: MAG LEVEL 1.4 - 2.0 Magnesium Sulfate 2 gm/ Device 100 mls @ 100 mls/hr IVPB ASDIR PRN PRN Reason: MAGNESIUM < 1.4 Potassium Phosphate 9 mmol/ (Sodium Chloride) 103 mls @ 25.75 mls/hr IVPB ASDIR PRN PRN Reason: Phosphate 1.0-1.8 Potassium Phosphate 12 mmol/ (Sodium Chloride) 254 mls @ 63.5 mls/hr IV ASDIR PRN PRN Reason: Serum phosphate 0.5-0.9 Potassium Phosphate 15 mmol/ (Sodium Chloride) 255 mls @ 63.75 mls/hr IV ASDIR PRN PRN Reason: Serum Phos < 0.5 Dobutamine HCl/Dextrose 500 mg (/ Device) 250 mls @ 0 mls/hr IVPB INF FEROZ; As Directed PRN Reason: Protocol Last Admin: 06/13/17 00:19 Dose: 250 mls Fentanyl Citrate 2,000 mcg/ (Sodium Chloride) 100 mls @ 0 mls/hr IV INF FEROZ PRN Reason: As Directed Stop: 07/09/17 15:46 Last Admin: 06/12/17 17:57 Dose: 100 mls Doxycycline Hyclate 100 mg/ (Sodium Chloride) 100 mls @ 100 mls/hr IVPB Q12HR REPLACED BY [facility] Last Admin: 06/13/17 09:30 Dose: 100 mls Insulin Human Regular (Humulin R) 0 units SC .MILD SLIDING SCALE PRN PRN Reason: Mild Correctional Scale Last Admin: 06/12/17 12:59 Dose: 2 unit Insulin Human Regular (Humulin R) 0 units SC .BEDTIME SLIDING SC PRN PRN Reason: Bedtime Correctional Scale Levothyroxine Sodium (Synthroid) 75 mcg PO 0600 REPLACED BY [facility] Last Admin: 06/13/17 06:13 Dose: 75 mcg Lorazepam (Ativan) 2 mg SLOW IVP Q2H PRN PRN Reason: Anxiety to achieve Estrada 2-3 Stop: 07/09/17 11:34 Magnesium Oxide (Magnesium Oxide) 400 mg PO BIDPRN PRN PRN Reason: FOR SERUM MAG 1.4 - 2.0 Magnesium Oxide (Magnesium Oxide) 800 mg PO PRN PRN PRN Reason: FOR SERUM MAG < 1.4 Methylprednisolone Sodium Succinate (Solu-Medrol) 30 mg IVP 0300,0900,1500, 2100 REPLACED BY [facility] Last Admin: 06/13/17 09:28 Dose: 30 mg Miscellaneous Medication (Phos-Nak) 1 pkt PO TIDPRN PRN PRN Reason: FOR PHOS LEVEL 1.0 - 1.8 Miscellaneous Medication (Phos-Nak) 2 pkt PO TIDPRN PRN PRN Reason: FOR PHOS LEVEL 0.5 - 1.0 Morphine Sulfate (Morphine) 2 mg SLOW IVP Q2H PRN PRN Reason: Breakthrough pain Ccu Electrolyte (Replacement Protocol) 0 each FS PRN PRN PRN Reason: FOR ELECTROLYTE REPLACEMENT Ondansetron HCl (Zofran) 4 mg IVP Q6H PRN PRN Reason: Nausea/Vomiting Potassium Chloride (K-Dur) 40 meq PO ASDIR PRN PRN Reason: FOR SERUM K+ 2.5 - 3.5 Potassium Chloride (Klor-Con) 40 meq PER TUBE ASDIR PRN PRN Reason: FOR SERUM K+ 2.5-3.5 Propofol (Diprivan) 1,000 mg IV INF PRN; Protocol PRN Reason: TO ACHIEVE ESTRADA SCORE 2-3 Stop: 07/09/17 11:34 Last Admin: 06/13/17 02:58 Dose: 1,000 mg Sildenafil Citrate (Revatio) 20 mg PER TUBE TID REPLACED BY [facility] Last Admin: 06/13/17 10:23 Dose: 20 mg
--- NOTE | 2017-06-13 10:41 | PRG ---
DATE OF SERVICE: 06/13/2017 Thirty-five minutes critical care time. SUBJECTIVE: Ms. Forman continues to be intubated on mechanical ventilation. She will flutter her e yes when locally stimulated. She will follow commands for me specifically. She is continuing on utamine and norepinephrine drip for hypotension. PHYSICAL EXAMINATION: VITAL SIGNS: Her temperature is 100.5 with heart rate of 95, blood pressure 96/62. Intake for 24 ho urs 3802, output 1515. Her weight is 178 pounds up from 165 at admission. HEENT: Pupils react. Sclerae are anicteric. Oropharynx is clear. NECK: No JVD. LUNGS: Fairly clear. CARDIOVASCULAR: S1, S2, slightly tachycardic. ABDOMEN: Soft, nontender, tolerating tube feeds. EXTREMITIES: Generalized mild edema throughout. LABORATORY DATA: PH 7.31, pCO2 of 58, pO2 of 58 on SIMV rate 16, tidal volume 400, PEEP 5, pressure support 12, FIO2 30%. Sodium 140, potassium 4.3, chloride 109, CO2 26, BUN 54, creatinine 0.9, gluco se 148. White blood count 7.2, hematocrit 49.2, platelet count 79. ASSESSMENT: 1. Acute respiratory failure requiring mechanical ventilation. 2. Severe pulmonary hypertension. 3. Severe underlying chronic obstructive pulmonary disease with exacerbation at the time of admissio n. 4. Tobacco abuse. 5. Diabetes mellitus type 2. PLAN: Overall, her bronchospasm continues to improve, but she is not yet ready to wean. I think she might benefit from treatment of pulmonary hypertension. I am trying to get access to some Revatio 2 0 mg t.i.d. I will go ahead and stop her IV fluids and she is fluid overloaded and give her a dose o f Lasix. She will continue steroids, nebulization therapies, antibiotics and tube feeds. Continue D obutrex and hopefully wean Levophed. Dr. Salter will return tomorrow. He is taking care of her in the past.
[2017-06-13] MEDS: fentaNYL Citrate/PF 2,000 MCG in Sodium Chloride 0.9% 60 ML IV SCH (13:50)
[2017-06-13] MEDS: Acetaminophen 325 MG TAB PO PRN (17:39)
[2017-06-13] MEDS: cefTRIAXone\\ROCEPHIN 1 GM, Syringe 0.4 ML in Sterile Water 9.6 ML SLOW IVP SCH (21:19)
[2017-06-14] MEDS: Norepinephrine 8 MG/0.9% NS 250 ML IVPB SCH ×2 (00:05→23:35)
[2017-06-14] MEDS: Propofol 1,000 MG/100 ML VIAL IV PRN ×2 (04:22→19:25)
[2017-06-14 04:38] LABS: Anion Gap 13 mmol/L (10-20); BUN (Urea Nitrogen) 61 mg/dL (9.8-20.1); Calc. Creatinine Clearance 85 mL/min (70-130); Calcium 10.7 mg/dL (7.8-10.44); Carbon Dioxide 28 mmol/L (22-29); Chloride 110 mmol/L (98-107); Estimated GFR-MDRD 71; Glucose 182 mg/dL (70-105); Potassium 4.6 mmol/L (3.5-5.1); Sodium 146 mmol/L (136-145)
[2017-06-14 04:56] LABS: Hemoglobin 16.3 g/dL (12.0-16.0); Lymphocytes 9 % (21-51); MDiff Complete? YES; Mean Corpuscular HGB CONC 30.2 g/dL (32.0-36.0); Mean Corpuscular Hemoglobin 30.3 pg (27.0-31.0); Mean Platelet Volume 12.6 fL (7.4-10.4); Monocytes 1 % (0-10); Neutrophil 90 % (42-75); PLT Morphology Comment Appears Decreased; Platelet Count 82 thou/uL (130-400); RBC Distribution Width 13.6 % (11.5-14.5); Red Blood Cell (RBC) Count 5.38 mill/uL (4.20-5.40); White Blood Cell (WBC) Count 8.8 thou/uL (4.8-10.8)
[2017-06-14] MEDS: Levothyroxine Sodium 75 MCG TAB PO SCH (05:32)
[2017-06-14] MEDS: Insulin Regular 300 UNITS/3 ML VIAL SC PRN (05:38)
[2017-06-14 07:18] LABS: Actual Bicarbonate (HCO3a) 28.7 mEq/L (22-26); Base Excess (BEa) 3.2 mEq/L (0 (+/-) 2.5); CO2 Tension 46.1 mmHg (35.0-45.0); Calcium, Ionized 1.5 mmol/L (1.12-1.30); Hematocrit-ABG 51.3 % (36.0-47.0); Hemoglobin (Hb) 17.1 g/dL (12.0-16.0); O2 Tension (PaO2) 56.8 mmHg (80.0-100.0); pH, Arterial 7.41 (7.35-7.45)
[2017-06-14 08:12] LABS: Puncture Site RRA
[2017-06-14 08:13] LABS: ALV-art Gradient 103.375 (0-20)
[2017-06-14] MEDS: Famotidine/PF 20 mg/2ml Vial SLOW IVP SCH ×2 (08:44→20:09)
[2017-06-14] MEDS: Aspirin 325 MG TAB ONE ×2 (08:45→08:47)
[2017-06-14] MEDS: Sildenafil Citrate 20 MG TAB PER TUBE SCH ×3 (08:49→20:11)
--- NOTE | 2017-06-14 13:57 | PDOC.CTH ---
<Marika Ortega - Last Filed: 06/14/17 13:52> Cardiology Progress Note - Subjective The pt seen and examined. No overnight events. Still remain on mechanical ventilation with vent sedation. - Objective Vital Signs Temp Pulse Resp BP Pulse Ox 06/14/17 10:42 125 H 118/79 06/14/17 10:40 138 H 23 H 99 06/14/17 08:00 99.3 F 06/14/17 06:57 91 119/71 06/14/17 06:54 125 H 20 94 L 06/14/17 06:00 20 06/14/17 04:00 98.9 F 20 06/14/17 02:12 93 06/14/17 02:11 95 24 H 97 06/14/17 02:00 20 Admit Weight 168 lb Weight 183 lb 3.266 oz 06/13/17 06/14/17 06/15/17 06:59 06:59 06:59 Intake Total 3802.5 2027.5 30 Output Total 1515 3215 135 Balance 2287.5 -1187.5 -105 - Physical Examination Neck: no JVD present Lungs: other: (coarse and diminished at bases) Heart: RRR Abdomen: soft Extremities: other: (2-3+ pitting BLE edema) - Telemetry Telemetry Rhythm: SR 90s - Labs Result Diagrams: 06/14/17 03:41 06/14/17 03:41 Troponin/CKMB CK-MB (CK-2) 6.3 ng/mL (0-6.6) 06/08/17 14:20 Troponin I 0.034 ng/mL (< 0.028) H 06/09/17 04:03 - Assessment/Plan 1. Acute on chronic respiratory failure 2ndary to COPD exacerbation - on Mechanical Vent; managed by cath lab radiology technician 2. Severe Pulm. HTN - 2ndary to Rt side CHF; Revatio 20mg TID was started by [employer]; cont. monitor 3. Hypotension - On Dobutamine and Levophed IV; cont. monitor 4. Acute on Chronic diastolic HF - stable with Dobutamine; cont. monitor 5. DM type 2 - on SS insulin 6. Hypothyroidism - managed by PCP 7. Current smoker - MAR reviewed Review of Systems - Review of Systems Constitutional: reports: see HPI EENTM: reports: see HPI Respiratory: reports: see HPI Cardiac (ROS): reports: see HPI ABD/GI: reports: see HPI : reports: see HPI Musculoskeletal: reports: see HPI Skin: reports: see HPI <Iraj Saldana - Last Filed: 06/14/17 19:49> Cardiology Progress Note - Objective Vital Signs Temp Pulse Resp BP Pulse Ox 06/14/17 19:32 109 H 06/14/17 19:31 108 H 18 94 L 06/14/17 18:00 16 06/14/17 16:00 98.7 F 06/14/17 14:46 81 114/73 06/14/17 14:45 83 22 H 99 06/14/17 12:00 99.3 F 17 06/14/17 10:42 125 H 118/79 06/14/17 10:40 138 H 23 H 99 06/14/17 08:00 99.3 F 81 20 95 Admit Weight 168 lb Weight 183 lb 3.266 oz 06/13/17 06/14/17 06/15/17 06:59 06:59 06:59 Intake Total 3802.5 2027.5 614 Output Total 1515 3215 2460 Balance 2287.5 -1187.5 -1846 - Labs Result Diagrams: 06/14/17 03:41 06/14/17 03:41 Troponin/CKMB CK-MB (CK-2) 6.3 ng/mL (0-6.6) 06/08/17 14:20 Troponin I 0.034 ng/mL (< 0.028) H 06/09/17 04:03 - Assessment/Plan Pt. was seen and eval. by me. I agree with the A/P by the [employer]. No significant cardiac change.
--- NOTE | 2017-06-14 14:02 | RAD ---
PORTABLE CHEST 1 VIEW: DATE: 06/14/17. TIME: 5:12 a.m. HISTORY: Respiratory failure. FINDINGS: Comparison is made with the exam of previous day. No significant interval change is seen since the 's exam. POS: JARROD
[2017-06-14] MEDS ORDERED: Furosemide 20 MG/2 ML VIAL SLOW IVP SCH (15:45)
--- NOTE | 2017-06-14 15:59 | PRG ---
DATE OF SERVICE: 06/14/2017 SERVICE: Pulmonary Medicine. INTERVAL HISTORY: The patient is doing fine from a respiratory standpoint. Her oxygen requirements are improving. Her expiratory time is also improved. She cannot provide any additional elements of the history. Nursing reports no significant events over the last 24 hours. PHYSICAL EXAMINATION: VITAL SIGNS: Afebrile with T-max of 100.5, pulse 81, blood pressure 114/73, respirations 22, saturation 99% on 30% FiO2 and a PEEP of 5. GENERAL: The patient is awake and alert, in no apparent distress. LUNGS: Decent air entry. There is a prolonged expiratory phase. Rhonchi are present as well as crackles. The rhonchi clear with cough. HEART: Normal rate, regular. ABDOMEN: Soft, nontender, nondistended. Bowel sounds positive. MUSCULOSKELETAL: No cyanosis or clubbing. There is 1-2+ pitting at the hips. GENITOURINARY: Watkins catheter in place. NEUROLOGIC: Grossly nonfocal. LABORATORY DATA: WBC 8.5, hemoglobin 16.3, platelets 82,000. INR 1.1. A pH of 7.41, pCO2 of 46, pO2 of 57 on 30% FiO2. Sodium 146 and up trending. Basic metabolic profile is otherwise unremarkable. BUN is 61. Respiratory cultures negative to date. Influenza A and B are both unremarkable. IMAGING: Chest x-ray demonstrates right-sided pleural parenchymal opacification , possibly reflective of a layering effusion. Right-sided IJ is in good position. Endotracheal tube is in good position. There is an enteric catheter coursing below the level of the diaphragm. Other tubes and lines are overlying the chest wall. ASSESSMENT: 1. Acute on chronic hypoxic respiratory failure, improving. 2. Chronic obstructive pulmonary disease with acute exacerbation. 3. Chronic hypercapnic respiratory failure. 4. Pulmonary hypertension. PLAN: We will continue to diurese the patient to euvolemia as tolerated. Continue the dobutamine. We will wean the Levophed. I remember her from the floor and she tolerates saturation in the upper 70s quite well. As such, we will target saturations of 88% to 92%. Pulmonary Critical Care will continue to follow. Hopefully, in 24 hours, she will be ready for a spontaneous breathing trial. Free water will be added to tube feeds. MTDD
--- NOTE | 2017-06-14 16:14 | PDOC.PN ---
- Subjective Encounter Start Date: 06/14/17 Encounter Start Time: 09:00 - Objective Resuscitation Status: Resuscitation Status FULL:Full Resuscitation MAR Reviewed: Yes Vital Signs & Weight: Vital Signs (12 hours) Temp Pulse Resp BP Pulse Ox 06/14/17 14:46 81 114/73 06/14/17 14:45 83 22 H 99 06/14/17 10:42 125 H 118/79 06/14/17 10:40 138 H 23 H 99 06/14/17 08:00 99.3 F 81 20 95 06/14/17 06:57 91 119/71 06/14/17 06:54 125 H 20 94 L 06/14/17 06:00 20 Weight Admit Weight 168 lb Weight 183 lb 3.266 oz Most Recent Monitor Data Heart Rate from ECG 97 NIBP 119/83 NIBP BP-Mean 89 Respiration from ECG 17 SpO2 95 I&O: 06/13/17 06/14/17 06/15/17 06:59 06:59 06:59 Intake Total 3802.5 2027.5 30 Output Total 1515 3215 135 Balance 2287.5 -1187.5 -105 Result Diagrams: 06/14/17 03:41 06/14/17 03:41 Additional Labs: Accuchecks 06/14/17 06/14/17 06/13/17 12:40 05:35 23:49 POC Glucose 155 H 165 H 148 H 06/13/17 16:48 POC Glucose 140 H Phys Exam - Physical Examination Respiratory: wheezing present Cardiovascular: RRR, no significant murmur Gastrointestinal: soft, no distention Musculoskeletal: edema present Skin: no rash Dx/Plan (1) ALICIA (acute kidney injury) Code(s): N17.9 - ACUTE KIDNEY FAILURE, UNSPECIFIED Status: Acute (2) Acute on chronic respiratory failure with hypoxia and hypercapnia Code(s): J96.21 - ACUTE AND CHRONIC RESPIRATORY FAILURE WITH HYPOXIA; J96.22 - ACUTE AND CHRONIC RESPIRATORY FAILURE WITH HYPERCAPNIA Status: Acute (3) COPD exacerbation Code(s): J44.1 - CHRONIC OBSTRUCTIVE PULMONARY DISEASE W (ACUTE) EXACERBATION Status: Acute (4) Pulmonary hypertension Code(s): I27.20 - PULMONARY HYPERTENSION, UNSPECIFIED Status: Acute (5) Severe tricuspid regurgitation Code(s): I07.1 - RHEUMATIC TRICUSPID INSUFFICIENCY Status: Chronic (6) Diabetes type 2, controlled Code(s): E11.9 - TYPE 2 DIABETES MELLITUS WITHOUT COMPLICATIONS Status: Chronic Qualifiers: Diabetes mellitus complication status: without complication (7) Acute on chronic diastolic (congestive) heart failure Code(s): I50.33 - ACUTE ON CHRONIC DIASTOLIC (CONGESTIVE) HEART FAILURE Status : Acute (8) Compensated respiratory acidosis Code(s): E87.2 - ACIDOSIS Status: Acute - Plan continue antibiotics * . (1) ALICIA (acute kidney injury) Code(s): N17.9 - ACUTE KIDNEY FAILURE, UNSPECIFIED Status: Acute Plan: This has improved, nephrology following. No other concnrs avoid nephrotoxic meds. Continue IV fluids. (2) Acute on chronic respiratory failure with hypoxia and hypercapnia Plan: ABG looks good improveemnt, persistant retenion of CO2 on ABG today, Pulmoanry on Board will follow recommedations, Continue Steroids IV and IV antibiotics. (3) COPD exacerbation Plan: Stbale, ABG looks improved, Will Follow above Pulmonary recommedations. (4) Pulmonary hypertension Plan: Stbale today, will continue to Follow Pulmonary recommedations, Rivelto started. Cardiology Following. (5) Severe tricuspid regurgitation (6) Diabetes type 2, controlled Diabetes mellitus complication status: without complication Plan: Well controlled, Will continue with levmir and SSI. Plan to keep BG 140-180 (7) Acute on chronic diastolic (congestive) heart failure Plan: Improved, with good diuresis, No third spacing noted. No pedal edema. Will continue to Monitor. pt on Dobutrex Cardiology Following. (8) Compensated respiratory acidosis Code(s): E87.2 - ACIDOSIS Status: Acute - Discharge Day Encounter end time: 09:30 Review of Systems - Review of Systems Other: Unable to get ROS Due to Sedation - Medications/Allergies Allergies/Adverse Reactions: Allergies Allergy/AdvReac Type Severity Reaction Status Date / Time No Known Allergies Allergy Verified 06/08/17 18:44 Medications: Current Medications Acetaminophen (Tylenol) 650 mg PO Q4H PRN PRN Reason: Headache/Fever or Pain Last Admin: 06/13/17 17:39 Dose: 650 mg Albuterol/Ipratropium (Duoneb) 3 ml NEB [id number] Last Admin: 06/14/17 14:45 Dose: 3 ml Aspirin (Aspirin Chewable) 81 mg PER TUBE DAILY [facility] Last Admin: 06/14/17 08:45 Dose: 81 mg Dextrose/Water (Dextrose 50%) 25 gm SLOW IVP PRN PRN PRN Reason: Hypoglycemia Famotidine (Pepcid) 20 mg SLOW IVP BID [facility] Last Admin: 06/14/17 08:44 Dose: 20 mg Furosemide (Lasix) 20 mg SLOW IVP 0600 FEROZ Furosemide (Lasix) 20 mg SLOW IVP NOW [facility] Stop: 06/14/17 17:45 Glucagon (Glucagon) 1 mg IM PRN PRN PRN Reason: Hypoglycemia Dextrose/Water (D5w) 1,000 mls @ 0 mls/hr IV .Q0M PRN; As Directed PRN Reason: Hypoglycemia Norepinephrine Bitartrate (Levophed) 250 mls @ 0 mls/hr IVPB INF FEROZ; Titrate PRN Reason: Protocol Last Admin: 06/14/17 00:05 Dose: 250 mls Fentanyl Citrate (Fentanyl Bolus) 250 mls @ 0 mls/hr IVPB PRN PRN; As Directed PRN Reason: Breakthrough pain Stop: 07/09/17 11:34 Potassium Chloride 40 meq/ (Sodium Chloride) 270 mls @ 135 mls/hr IVPB ASDIR PRN PRN Reason: FOR SERUM K+ 2.5 - 3.5 Potassium Chloride 40 meq/ (Device) 100 mls @ 50 mls/hr IVPB ASDIR PRN PRN Reason: FOR SERUM K+ 2.5 - 3.5 Magnesium Sulfate 1 gm/ Sodium (Chloride) 102 mls @ 102 mls/hr IV PRN PRN PRN Reason: MAG LEVEL 1.4 - 2.0 Magnesium Sulfate 2 gm/ Device 100 mls @ 100 mls/hr IVPB ASDIR PRN PRN Reason: MAGNESIUM < 1.4 Potassium Phosphate 9 mmol/ (Sodium Chloride) 103 mls @ 25.75 mls/hr IVPB ASDIR PRN PRN Reason: Phosphate 1.0-1.8 Potassium Phosphate 12 mmol/ (Sodium Chloride) 254 mls @ 63.5 mls/hr IV ASDIR PRN PRN Reason: Serum phosphate 0.5-0.9 Potassium Phosphate 15 mmol/ (Sodium Chloride) 255 mls @ 63.75 mls/hr IV ASDIR PRN PRN Reason: Serum Phos < 0.5 Dobutamine HCl/Dextrose 500 mg (/ Device) 250 mls @ 0 mls/hr IVPB INF FEROZ; As Directed PRN Reason: Protocol Last Admin: 06/13/17 00:19 Dose: 250 mls Fentanyl Citrate 2,000 mcg/ (Sodium Chloride) 100 mls @ 0 mls/hr IV INF FEROZ PRN Reason: As Directed Stop: 07/09/17 15:46 Last Admin: 06/13/17 13:50 Dose: 100 mls Insulin Human Regular (Humulin R) 0 units SC .MILD SLIDING SCALE PRN PRN Reason: Mild Correctional Scale Last Admin: 06/14/17 05:38 Dose: 2 unit Insulin Human Regular (Humulin R) 0 units SC .BEDTIME SLIDING SC PRN PRN Reason: Bedtime Correctional Scale Levothyroxine Sodium (Synthroid) 75 mcg PO 0600 [facility] Last Admin: 06/14/17 05:32 Dose: 75 mcg Lorazepam (Ativan) 2 mg SLOW IVP Q2H PRN PRN Reason: Anxiety to achieve Setrada 2-3 Stop: 07/09/17 11:34 Magnesium Oxide (Magnesium Oxide) 400 mg PO BIDPRN PRN PRN Reason: FOR SERUM MAG 1.4 - 2.0 Magnesium Oxide (Magnesium Oxide) 800 mg PO PRN PRN PRN Reason: FOR SERUM MAG < 1.4 Methylprednisolone Sodium Succinate (Solu-Medrol) 40 mg IVP DAILY [facility] Last Admin: 06/14/17 16:11 Dose: 40 mg Miscellaneous Medication (Phos-Nak) 1 pkt PO TIDPRN PRN PRN Reason: FOR PHOS LEVEL 1.0 - 1.8 Miscellaneous Medication (Phos-Nak) 2 pkt PO TIDPRN PRN PRN Reason: FOR PHOS LEVEL 0.5 - 1.0 Ccu Electrolyte (Replacement Protocol) 0 each FS PRN PRN PRN Reason: FOR ELECTROLYTE REPLACEMENT Ondansetron HCl (Zofran) 4 mg IVP Q6H PRN PRN Reason: Nausea/Vomiting Potassium Chloride (K-Dur) 40 meq PO ASDIR PRN PRN Reason: FOR SERUM K+ 2.5 - 3.5 Potassium Chloride (Klor-Con) 40 meq PER TUBE ASDIR PRN PRN Reason: FOR SERUM K+ 2.5-3.5 Propofol (Diprivan) 1,000 mg IV INF PRN; Protocol PRN Reason: TO ACHIEVE ESTRADA SCORE 2-3 Stop: 07/09/17 11:34 Last Admin: 06/14/17 04:22 Dose: 1,000 mg Sildenafil Citrate (Revatio) 20 mg PER TUBE TID [facility] Last Admin: 06/14/17 16:10 Dose: 20 mg
[2017-06-14] MEDS: DOBUTamine 500 mg/250 ml 500 MG in Premix Bag 1 BAG IVPB SCH (19:17)
[2017-06-15 04:28] LABS: Anion Gap 13 mmol/L (10-20); BUN (Urea Nitrogen) 57 mg/dL (9.8-20.1); Calc. Creatinine Clearance 87 mL/min (70-130); Calcium 11.3 mg/dL (7.8-10.44); Carbon Dioxide 31 mmol/L (22-29); Chloride 110 mmol/L (98-107); Estimated GFR-MDRD 72; Glucose 160 mg/dL (70-105); Potassium 4.5 mmol/L (3.5-5.1); Sodium 149 mmol/L (136-145)
[2017-06-15 05:03] LABS: #Lymphocytes 0.8 thou/uL (1.20-3.40); #Monocytes 0.9 thou/uL (0.11-0.59); #Neutrophils 10.3 thou/uL (1.40-6.50); %Basophils 0.1 % (0.0-1.0); %Lymphocytes 6.9 % (21.0-51.0); %Monocytes 7.2 % (0.0-10.0); %Neutrophils 85.8 % (42.0-75.0); Mean Corpuscular HGB CONC 30.9 g/dL (32.0-36.0); Mean Corpuscular Hemoglobin 31.4 pg (27.0-31.0); Mean Platelet Volume 12.7 fL (7.4-10.4); Platelet Count 86 thou/uL (130-400); RBC Distribution Width 13.6 % (11.5-14.5); Red Blood Cell (RBC) Count 5.42 mill/uL (4.20-5.40)
[2017-06-15] MEDS: Levothyroxine Sodium 75 MCG TAB PO SCH (05:16)
[2017-06-15] MEDS: Acetaminophen 325 MG TAB PO PRN ×2 (05:21→13:06)
[2017-06-15] MEDS ORDERED: Furosemide 20 MG/2 ML VIAL SLOW IVP SCH (06:00)
[2017-06-15] MEDS: fentaNYL Citrate/PF 2,000 MCG in Sodium Chloride 0.9% 60 ML IV SCH (06:07)
[2017-06-15 07:23] LABS: Actual Bicarbonate (HCO3a) 30.9 mEq/L (22-26); Base Excess (BEa) 4.5 mEq/L (0 (+/-) 2.5); Calcium, Ionized 1.6 mmol/L (1.12-1.30); Hematocrit-ABG 51.4 % (36.0-47.0); Hemoglobin (Hb) 16.3 g/dL (12.0-16.0); pH, Arterial 7.39 (7.35-7.45)
[2017-06-15 07:24] LABS: O2 Tension (PaO2) 49.8 mmHg (80.0-100.0)
[2017-06-15 07:25] LABS: Puncture Site RRA
[2017-06-15] MEDS: Famotidine/PF 20 mg/2ml Vial SLOW IVP SCH (09:19)
[2017-06-15] MEDS: Sildenafil Citrate 20 MG TAB PER TUBE SCH ×3 (09:20→20:06)
[2017-06-15] MEDS: Norepinephrine 8 MG/0.9% NS 250 ML IVPB SCH (11:52)
--- NOTE | 2017-06-15 11:53 | PRG ---
DATE OF SERVICE: 06/15/2017 SERVICE: Pulmonary Medicine INTERVAL HISTORY: The patient is doing fine from a respiratory standpoint. She is breathing comfort ably this morning. She is waking up from her sedation and is much more alert. Otherwise, there has been no interval change to her condition. Oxygen requirements are improving and her respiratory rate is comfortably slowing down a little bit. PHYSICAL EXAMINATION: VITAL SIGNS: Afebrile, pulse 111, blood pressure 112/72, respirations 21, saturation 94% on 27% FiO2 and PEEP of 5. GENERAL: The patient is awake, alert, in no apparent distress. She is following all commands. HEENT: Normocephalic, atraumatic. Sclerae are white, conjunctivae pink. Oral mucosa is moist witho ut lesions. LUNGS: Decent air entry. Dependent crackles are present. There is prolonged expiratory phase with wheezing. No rhonchi. HEART: Normal rate, regular. ABDOMEN: Soft, nontender, nondistended. Bowel sounds are positive. MUSCULOSKELETAL: No cyanosis or clubbing. No pitting in the bilateral lower extremities. NEUROLOGIC: Grossly nonfocal. LABORATORY DATA: WBC 12.0, hemoglobin 17.0, platelets 86,000. INR 1.1. PH 7.39, pCO2 52, pO2 49.8. Sodium 149 and trending upward, basic metabolic profile is otherwise unremarkable. Bicarbonate is 31. Creatinine 0.97 and roughly stable. BUN is stable at 57. Respiratory culture is negative. In fluenza A and B are also unremarkable. ASSESSMENT: 1. Acute hypoxic respiratory failure, improving. 2. Chronic obstructive pulmonary disease with acute exacerbation. 3. Chronic hypercapnic respiratory failure. 4. Pulmonary hypertension, severe. PLAN: We will put her on a spontaneous breathing trial after a good sedation holiday. Extubation wi ll be considered if she meets criteria. Once this occurs we will wean the Levophed. I think intrava scularly, the patient is as dry as we need her. As such, I will back off on our interval of Lasix. Critical care time: 30 minutes.
[2017-06-15] MEDS: Propofol 1,000 MG/100 ML VIAL IV PRN (12:36)
--- NOTE | 2017-06-15 14:50 | PDOC.PN ---
- Subjective Encounter Start Date: 06/15/17 Encounter Start Time: 09:00 -: non-verbal PT remains intubated, Tried wean off vent but patient too weak to wake up. - Objective Resuscitation Status: Resuscitation Status FULL:Full Resuscitation MAR Reviewed: Yes Vital Signs & Weight: Vital Signs (12 hours) Temp Pulse Resp BP Pulse Ox 06/15/17 14:00 22 H 06/15/17 12:00 99.5 F 06/15/17 11:47 108 H 25 H 112/72 89 L 06/15/17 08:00 98.3 F 87 15 06/15/17 06:31 129 H 98/65 06/15/17 06:30 119 H 20 91 L 06/15/17 06:00 20 06/15/17 04:00 100.0 F H 16 Weight Admit Weight 168 lb Weight 181 lb 10.574 oz Most Recent Monitor Data Heart Rate from ECG 113 NIBP 111/73 NIBP BP-Mean 82 Respiration from ECG 22 SpO2 92 I&O: 06/14/17 06/15/17 06/16/17 06:59 06:59 06:59 Intake Total 2027.5 1314.6 120 Output Total 3215 3955 850 Balance -1187.5 -2640.4 -730 Result Diagrams: 06/15/17 03:32 06/15/17 03:32 Additional Labs: Accuchecks 06/15/17 06/15/17 06/14/17 09:19 05:55 23:56 POC Glucose 111 H 144 H 140 H 06/14/17 19:40 POC Glucose 135 H Radiology Reviewed by me: Yes Phys Exam - Physical Examination Neck: no nodes, no JVD Respiratory: wheezing present Cardiovascular: RRR, no significant murmur Gastrointestinal: soft, positive bowel sounds Musculoskeletal: edema present Skin: no rash Dx/Plan (1) ALICIA (acute kidney injury) Code(s): N17.9 - ACUTE KIDNEY FAILURE, UNSPECIFIED Status: Acute (2) Acute on chronic respiratory failure with hypoxia and hypercapnia Code(s): J96.21 - ACUTE AND CHRONIC RESPIRATORY FAILURE WITH HYPOXIA; J96.22 - ACUTE AND CHRONIC RESPIRATORY FAILURE WITH HYPERCAPNIA Status: Acute (3) COPD exacerbation Code(s): J44.1 - CHRONIC OBSTRUCTIVE PULMONARY DISEASE W (ACUTE) EXACERBATION Status: Acute (4) Pulmonary hypertension Code(s): I27.20 - PULMONARY HYPERTENSION, UNSPECIFIED Status: Acute (5) Severe tricuspid regurgitation Code(s): I07.1 - RHEUMATIC TRICUSPID INSUFFICIENCY Status: Chronic (6) Diabetes type 2, controlled Code(s): E11.9 - TYPE 2 DIABETES MELLITUS WITHOUT COMPLICATIONS Status: Chronic Qualifiers: Diabetes mellitus complication status: without complication (7) Acute on chronic diastolic (congestive) heart failure Code(s): I50.33 - ACUTE ON CHRONIC DIASTOLIC (CONGESTIVE) HEART FAILURE Status : Acute (8) Compensated respiratory acidosis Code(s): E87.2 - ACIDOSIS Status: Acute - Plan cont current plan of care, DVT proph w/lovenox * . (1) ALICIA (acute kidney injury) Code(s): N17.9 - ACUTE KIDNEY FAILURE, UNSPECIFIED Status: Acute Plan: This has improved, nephrology following. No other concnrs avoid nephrotoxic meds. Continue IV fluids. (2) Acute on chronic respiratory failure with hypoxia and hypercapnia Plan: ABG looks good improveemnt, persistant retenion of CO2 on ABG today, Pulmoanry on Board will follow recommedations, Continue Steroids IV and IV antibiotics. (3) COPD exacerbation Plan: [place], ABG looks improved, Will Follow above Pulmonary recommedations. (4) Pulmonary hypertension Plan: [place] today, will continue to Follow Pulmonary recommedations, Rivelto started. Cardiology Following. Stable. (5) Severe tricuspid regurgitation (6) Diabetes type 2, controlled Diabetes mellitus complication status: without complication Plan: Well controlled, Will continue with levmir and SSI. Plan to keep BG 140-180. No changes today. (7) Acute on chronic diastolic (congestive) heart failure Plan: Improved, with good diuresis, pedal edema noted. Will continue to Monitor. pt on Dobutrex Cardiology Following. Review of Systems - Review of Systems Other: Unable to perform as pt is sedated. - Medications/Allergies Allergies/Adverse Reactions: Allergies Allergy/AdvReac Type Severity Reaction Status Date / Time No Known Allergies Allergy Verified 06/08/17 18:44 Medications: Current Medications Acetaminophen (Tylenol) 650 mg PO Q4H PRN PRN Reason: Headache/Fever or Pain Last Admin: 06/15/17 13:06 Dose: 650 mg Albuterol/Ipratropium (Duoneb) 3 ml NEB [id number] FEROZ Last Admin: 06/15/17 11:47 Dose: 3 ml Aspirin (Aspirin Chewable) 81 mg PER TUBE DAILY FEROZ Last Admin: 06/15/17 09:20 Dose: 81 mg Dextrose/Water (Dextrose 50%) 25 gm SLOW IVP PRN PRN PRN Reason: Hypoglycemia Glucagon (Glucagon) 1 mg IM PRN PRN PRN Reason: Hypoglycemia Dextrose/Water (D5w) 1,000 mls @ 0 mls/hr IV .Q0M PRN; As Directed PRN Reason: Hypoglycemia Norepinephrine Bitartrate (Levophed) 250 mls @ 0 mls/hr IVPB INF FEROZ; Titrate PRN Reason: Protocol Last Admin: 06/15/17 11:52 Dose: 250 mls Potassium Chloride 40 meq/ (Sodium Chloride) 270 mls @ 135 mls/hr IVPB ASDIR PRN PRN Reason: FOR SERUM K+ 2.5 - 3.5 Potassium Chloride 40 meq/ (Device) 100 mls @ 50 mls/hr IVPB ASDIR PRN PRN Reason: FOR SERUM K+ 2.5 - 3.5 Magnesium Sulfate 1 gm/ Sodium (Chloride) 102 mls @ 102 mls/hr IV PRN PRN PRN Reason: MAG LEVEL 1.4 - 2.0 Magnesium Sulfate 2 gm/ Device 100 mls @ 100 mls/hr IVPB ASDIR PRN PRN Reason: MAGNESIUM < 1.4 Potassium Phosphate 9 mmol/ (Sodium Chloride) 103 mls @ 25.75 mls/hr IVPB ASDIR PRN PRN Reason: Phosphate 1.0-1.8 Potassium Phosphate 12 mmol/ (Sodium Chloride) 254 mls @ 63.5 mls/hr IV ASDIR PRN PRN Reason: Serum phosphate 0.5-0.9 Potassium Phosphate 15 mmol/ (Sodium Chloride) 255 mls @ 63.75 mls/hr IV ASDIR PRN PRN Reason: Serum Phos < 0.5 Dobutamine HCl/Dextrose 500 mg (/ Device) 250 mls @ 0 mls/hr IVPB INF FEROZ; As Directed PRN Reason: Protocol Last Admin: 06/14/17 19:17 Dose: 250 mls Fentanyl Citrate 2,000 mcg/ (Sodium Chloride) 100 mls @ 0 mls/hr IV INF FEROZ PRN Reason: As Directed Insulin Human Regular (Humulin R) 0 units SC .MILD SLIDING SCALE PRN PRN Reason: Mild Correctional Scale Last Admin: 06/14/17 05:38 Dose: 2 unit Insulin Human Regular (Humulin R) 0 units SC .BEDTIME SLIDING SC PRN PRN Reason: Bedtime Correctional Scale Levothyroxine Sodium (Synthroid) 75 mcg PO 0600 [facility] Last Admin: 06/15/17 05:16 Dose: 75 mcg Magnesium Oxide (Magnesium Oxide) 400 mg PO BIDPRN PRN PRN Reason: FOR SERUM MAG 1.4 - 2.0 Magnesium Oxide (Magnesium Oxide) 800 mg PO PRN PRN PRN Reason: FOR SERUM MAG < 1.4 Methylprednisolone Sodium Succinate (Solu-Medrol) 40 mg IVP DAILY [facility] Last Admin: 06/15/17 09:19 Dose: 40 mg Miscellaneous Medication (Phos-Nak) 1 pkt PO TIDPRN PRN PRN Reason: FOR PHOS LEVEL 1.0 - 1.8 Miscellaneous Medication (Phos-Nak) 2 pkt PO TIDPRN PRN PRN Reason: FOR PHOS LEVEL 0.5 - 1.0 Ccu Electrolyte (Replacement Protocol) 0 each FS PRN PRN PRN Reason: FOR ELECTROLYTE REPLACEMENT Ondansetron HCl (Zofran) 4 mg IVP Q6H PRN PRN Reason: Nausea/Vomiting Potassium Chloride (K-Dur) 40 meq PO ASDIR PRN PRN Reason: FOR SERUM K+ 2.5 - 3.5 Potassium Chloride (Klor-Con) 40 meq PER TUBE ASDIR PRN PRN Reason: FOR SERUM K+ 2.5-3.5 Propofol (Diprivan) 1,000 mg IV INF PRN; Protocol PRN Reason: TO ACHIEVE ESTRADA SCORE 2-3 Last Admin: 06/15/17 12:36 Dose: 1,000 mg Sildenafil Citrate (Revatio) 20 mg PER TUBE TID [facility] Last Admin: 06/15/17 09:20 Dose: 20 mg
[2017-06-15] MEDS ORDERED: Pancrelipase DR 12000 1 CAP FS PRN (17:31)
[2017-06-15] MEDS ORDERED: Sodium Bicarbonate Tab 325 MG TAB PER TUBE PRN (17:31)
--- NOTE | 2017-06-15 17:57 | PDOC.CTH ---
Cardiology Progress Note - Objective Vital Signs Temp Pulse Resp BP Pulse Ox 06/15/17 16:00 23 H 06/15/17 15:00 98.9 F 06/15/17 14:59 91 111/73 06/15/17 14:58 98 20 92 L 06/15/17 14:00 22 H 06/15/17 12:00 99.5 F 06/15/17 11:47 108 H 25 H 112/72 89 L 06/15/17 08:00 98.3 F 87 15 06/15/17 06:31 129 H 98/65 06/15/17 06:30 119 H 20 91 L 06/15/17 06:00 20 Admit Weight 168 lb Weight 181 lb 10.574 oz 06/14/17 06/15/17 06/16/17 06:59 06:59 06:59 Intake Total 2027.5 1314.6 772.4 Output Total 3215 3955 1095 Balance -1187.5 -2640.4 -322.6 - Physical Examination General/Neuro: other: (sedated. On the ventilator.) Lungs: CTA Heart: RRR Abdomen: no HSM Extremities: other: (trace edema.) - Telemetry Telemetry Rhythm: NSR, sinus tach. - Labs Result Diagrams: 06/15/17 03:32 06/15/17 03:32 Troponin/CKMB CK-MB (CK-2) 6.3 ng/mL (0-6.6) 06/08/17 14:20 Troponin I 0.034 ng/mL (< 0.028) H 06/09/17 04:03 - Assessment/Plan 1. Acute on chronic respiratory failure 2ndary to COPD exacerbation - on Mechanical Vent; managed by meter maker. Not able to wean from the vent yet. 2. Severe Pulm. HTN - 2ndary to Rt side CHF; Revatio 20mg TID was started by Counter Weigher; cont. monitor 3. Hypotension - On Dobutamine and Levophed IV; cont. monitor 4. Acute on Chronic diastolic HF - stable with Dobutamine; cont. monitor 5. DM type 2 - on SS insulin 6. Hypothyroidism - managed by PCP 7. Current smoker - MAR reviewed
[2017-06-15] MEDS: DOBUTamine 500 mg/250 ml 500 MG in Premix Bag 1 BAG IVPB SCH (19:19)
[2017-06-16] MEDS: Propofol 1,000 MG/100 ML VIAL IV PRN ×2 (00:28→14:44)
[2017-06-16] MEDS: Norepinephrine 8 MG/0.9% NS 250 ML IVPB SCH ×2 (01:54→16:18)
[2017-06-16] MEDS: Acetaminophen 325 MG TAB PO PRN (03:20)
[2017-06-16 04:12] LABS: Anion Gap 11 mmol/L (10-20); BUN (Urea Nitrogen) 53 mg/dL (9.8-20.1); Calc. Creatinine Clearance 103 mL/min (70-130); Calcium 11.2 mg/dL (7.8-10.44); Carbon Dioxide 32 mmol/L (22-29); Chloride 110 mmol/L (98-107); Estimated GFR-MDRD 89; Glucose 144 mg/dL (70-105); Potassium 4.3 mmol/L (3.5-5.1); Sodium 149 mmol/L (136-145)
[2017-06-16] MEDS: fentaNYL Citrate/PF 2,000 MCG in Sodium Chloride 0.9% 60 ML IV SCH (04:15)
[2017-06-16 05:00] LABS: Band 4 % (5-11); Eosinophils 1 % (0-10); Hemoglobin 16.4 g/dL (12.0-16.0); Hypochromia SLIGHT = 6-15 cells (100X) (0-5/hpf); Lymphocytes 9 % (21-51); MDiff Complete? YES; Macrocytosis SLIGHT = 6-15 cells (100X) (0-5/hpf); Mean Corpuscular Hemoglobin 31.7 pg (27.0-31.0); Mean Platelet Volume 12.3 fL (7.4-10.4); Metamyelocyte 1 % (0-0); Monocytes 3 % (0-10); Neutrophil 78 % (42-75); PLT Morphology Comment Appears Decreased; Platelet Count 85 thou/uL (130-400); RBC Distribution Width 13.5 % (11.5-14.5); Reactive Lymphocytes 4 % (0-10); Red Blood Cell (RBC) Count 5.19 mill/uL (4.20-5.40); White Blood Cell (WBC) Count 15.7 thou/uL (4.8-10.8)
[2017-06-16] MEDS: Levothyroxine Sodium 75 MCG TAB PO SCH (05:19)
[2017-06-16] MEDS: Sildenafil Citrate 20 MG TAB PER TUBE SCH ×3 (09:26→20:53)
--- NOTE | 2017-06-16 11:21 | PDOC.CTH ---
<Marika Ortega - Last Filed: 06/16/17 11:18> Cardiology Progress Note - Subjective The pt seen and examined. No overnight events. The pt opened her eyes and could follow commands and answer questions with nodding or shaking her head. She denied any cardiac complaints. Her HR tends to increase with any stimulation. - Objective Vital Signs Temp Pulse Resp BP Pulse Ox 06/16/17 10:00 20 06/16/17 08:00 98.5 F 106 H 20 06/16/17 07:00 98.5 F 06/16/17 06:57 93 107/68 06/16/17 06:56 90 15 93 L 06/16/17 06:00 18 06/16/17 04:00 99.5 F 20 06/16/17 02:47 118 H 06/16/17 02:00 17 06/16/17 00:00 99.5 F 16 Admit Weight 168 lb Weight 181 lb 3.52 oz 06/15/17 06/16/17 06/17/17 06:59 06:59 06:59 Intake Total 1314.6 1403.6 90 Output Total 3955 2260 255 Balance -2640.4 -856.4 -165 - Physical Examination General/Neuro: other: (able to answer and fllow commands correctly) Neck: no JVD present Lungs: other: (coases and diminished at bases) Heart: RRR Abdomen: soft Extremities: other: (No edema) - Telemetry Telemetry Rhythm: SR and ST 90-120s - Labs Result Diagrams: 06/16/17 03:39 06/16/17 03:39 Troponin/CKMB CK-MB (CK-2) 6.3 ng/mL (0-6.6) 06/08/17 14:20 Troponin I 0.034 ng/mL (< 0.028) H 06/09/17 04:03 - Assessment/Plan 1. Acute on chronic respiratory failure 2ndary to COPD exacerbation - on Mechanical Vent; managed by information security architect. She failed Bipap trial today. Not able to wean from the vent yet. 2. Severe Pulm. HTN - 2ndary to Rt side CHF; stable with Revatio 20mg TID was started by Aluminum Welder; cont. monitor 3. Hypotension - On Dobutamine and Levophed IV; cont. monitor 4. Acute on Chronic diastolic HF - stable with Dobutamine; cont. monitor 5. DM type 2 - on SS insulin 6. Hypothyroidism - managed by PCP 7. Current smoker - MAR reviewed Review of Systems - Review of Systems Constitutional: reports: no symptoms reported EENTM: reports: no symptoms reported Respiratory: reports: no symptoms reported Cardiac (ROS): reports: no symptoms reported ABD/GI: reports: no symptoms reported : reports: no symptoms reported Musculoskeletal: reports: no symptoms reported <Iraj Saldana - Last Filed: 06/16/17 18:02> Cardiology Progress Note - Objective Vital Signs Temp Pulse Resp BP Pulse Ox 06/16/17 15:56 120 H 113/71 06/16/17 15:55 118 H 19 97 06/16/17 15:00 100.3 F H 06/16/17 13:00 100.6 F H 06/16/17 11:24 109 H 111/68 06/16/17 11:23 108 H 20 93 L 06/16/17 11:00 100.8 F H 06/16/17 10:00 20 06/16/17 08:00 98.5 F 106 H 20 06/16/17 07:00 98.5 F 06/16/17 06:57 93 107/68 06/16/17 06:56 90 15 93 L Admit Weight 168 lb Weight 181 lb 3.52 oz 06/15/17 06/16/17 06/17/17 06:59 06:59 06:59 Intake Total 1314.6 1403.6 1102.0 Output Total 3955 2260 670 Balance -2640.4 -856.4 432.0 - Labs Result Diagrams: 06/16/17 03:39 06/16/17 03:39 Troponin/CKMB CK-MB (CK-2) 6.3 ng/mL (0-6.6) 06/08/17 14:20 Troponin I 0.034 ng/mL (< 0.028) H 06/09/17 04:03 - Assessment/Plan Pt. seen and eval. by me. I agree with the A/P by the HOME HEALTH SPECIALIST. The pt. is more awake today but not able to be extubated. No edema. Sinus tachycardia.
[2017-06-16] MEDS ORDERED: Bisacodyl 10 MG SUPP PR PRN (12:51)
--- NOTE | 2017-06-16 13:07 | PRG ---
DATE OF SERVICE: 06/16/2017 SERVICE: Pulmonary Medicine. INTERVAL HISTORY: This morning, I walked into the room and put patient on a spontaneous breathing tr ial because she was wide awake and following commands and listening to me. She almost immediately de compensated. She became tachypneic and pulled very small volumes. As such, we put her back on mecha nical ventilation. When we put on a spontaneous breathing trial, she almost immediately desaturated because she was only pulling volumes of 120 mL. Otherwise, there were no interval changes to her con dition overnight. She has not had a bowel movement in multiple days and we are going to need to star t working on getting her moving. Nursing reports over no overnight events. PHYSICAL EXAMINATION: VITAL SIGNS: Afebrile with T-max of 100.8, pulse 117, blood pressure 106/68, respirations 19, satura tion 92% on 30% FiO2 and PEEP of 5. GENERAL: The patient is awake and alert. No apparent distress. LUNGS: Decent air entry with prolonged expiratory phase. I do not appreciate any crackles. HEART: Normal rate, regular. ABDOMEN: Soft, nontender, nondistended, bowel sounds positive. MUSCULOSKELETAL: No cyanosis or clubbing. There is no pitting in the bilateral lower extremities. NEUROLOGIC: Grossly nonfocal. LABORATORY DATA: WBC 15.7, hemoglobin 16.4, platelets 85 and roughly stable. A pH 7.39, pCO2 52, pO 2 50, creatinine 0.81, BUN 53 and down trending. Sodium 149, bicarbonate 32 and stable. Chloride 11 0. Calcium 11.2. Influenza A and B are both unremarkable. Respiratory cultures negative to date. ASSESSMENT: 1. Acute hypoxic respiratory failure, stable. 2. Chronic obstructive pulmonary disease with acute exacerbation. 3. Chronic hypercapnic respiratory failure. 4. Pulmonary hypertension, severe. 5. New onset of systemic inflammatory response syndrome. PLAN: I will get a chest x-ray, culture her urine, culture her trachea, and culture her blood. We w ill continue free water. I will stop Lasix altogether as she is currently clinically dry. I will pr ovide her with suppositories to see if we can get her gut moving. She will remain on mechanical vent ilation for at least an additional 24-48 hours as the patient is slow to recover other prolonged expi ratory phase. Of note, I do not think it is the pulmonary hypertension that is driving her continued need to be on mechanical ventilation. CRITICAL CARE TIME: 30 minutes.
[2017-06-16 14:03] LABS: Bilirubin Small (Negative); Blood, Urine Negative (Negative); Clarity CLEAR (Clear); Glucose, Urine (Dipstick) Negative (Negative); Leukocyte Negative (Negative); Nitrite Negative (Negative); Protein, Urine (Dipstick) 30 mg/dL (Neg-Trace); Specific Gravity, Urine 1.026 (1.002-1.036)
[2017-06-16 14:11] LABS: Bacteria/HPF None Seen HPF (None Seen); Hyaline Casts/LPF 0-3 HYALINE CAST LPF (0-3 Hyaline); Pathc Cast-AUWi Flag 0.27 (0-2.49); RBC/HPF 0-3 HPF (0-3); Squamous Epithelial 0-3 HPF (0-3); WBC/HPF 0-3 HPF (0-3)
--- NOTE | 2017-06-16 14:18 | RAD ---
CHEST ONE VIEW: History: 56-year-old female with respiratory insufficiency, SIRS, and intubation. Comparison: 06-14-17 FINDINGS: There is some minimal interstitial and alveolar edema and bilateral pleural effusions. Appearance lexy ears slightly improved from most recent prior studies. IMPRESSION: Persistent cardiomegaly and vascular congestion and pleural effusions and probably mild edema showing minimal improvement. No new process. Continued short term follow up. POS: [facility]
[2017-06-16] MEDS: Dextrose 5% in Water 1,000 ML IV SCH (14:46)
--- NOTE | 2017-06-16 15:06 | PDOC.PN ---
- Subjective Encounter Start Date: 06/16/17 Encounter Start Time: 09:00 Patient is Intubated and on Diprivan Sedation. Family / Sister at bedside, Explained about the patient Poor prognosis and severe comorbidities. - Objective Resuscitation Status: Resuscitation Status FULL:Full Resuscitation MAR Reviewed: Yes Vital Signs & Weight: Vital Signs (12 hours) Temp Pulse Resp BP Pulse Ox 06/16/17 13:00 100.6 F H 06/16/17 11:24 109 H 111/68 06/16/17 11:23 108 H 20 93 L 06/16/17 11:00 100.8 F H 06/16/17 10:00 20 06/16/17 08:00 98.5 F 106 H 20 06/16/17 07:00 98.5 F 06/16/17 06:57 93 107/68 06/16/17 06:56 90 15 93 L 06/16/17 06:00 18 06/16/17 04:00 99.5 F 20 Weight Admit Weight 168 lb Weight 181 lb 3.52 oz Most Recent Monitor Data Heart Rate from ECG 101 NIBP 115/71 NIBP BP-Mean 79 Respiration from ECG 20 SpO2 93 I&O: 06/15/17 06/16/17 06/17/17 06:59 06:59 06:59 Intake Total 1314.6 1403.6 90 Output Total 3955 2260 485 Balance -2640.4 -856.4 -395 Result Diagrams: 06/16/17 03:39 06/16/17 03:39 Additional Labs: Accuchecks 06/16/17 06/16/17 06/16/17 09:15 05:48 00:25 POC Glucose 108 115 H 111 H 06/15/17 15:09 POC Glucose 142 H Radiology Reviewed by me: Yes Phys Exam - Physical Examination Neck: no nodes, no JVD Respiratory: no wheezing, no rales, no rhonchi Cardiovascular: RRR, no significant murmur Gastrointestinal: soft, non-tender, no distention Musculoskeletal: no edema, pulses present Dx/Plan (1) ALICIA (acute kidney injury) Code(s): N17.9 - ACUTE KIDNEY FAILURE, UNSPECIFIED Status: Acute (2) Acute on chronic respiratory failure with hypoxia and hypercapnia Code(s): J96.21 - ACUTE AND CHRONIC RESPIRATORY FAILURE WITH HYPOXIA; J96.22 - ACUTE AND CHRONIC RESPIRATORY FAILURE WITH HYPERCAPNIA Status: Acute (3) COPD exacerbation Code(s): J44.1 - CHRONIC OBSTRUCTIVE PULMONARY DISEASE W (ACUTE) EXACERBATION Status: Acute (4) Pulmonary hypertension Code(s): I27.20 - PULMONARY HYPERTENSION, UNSPECIFIED Status: Acute (5) Severe tricuspid regurgitation Code(s): I07.1 - RHEUMATIC TRICUSPID INSUFFICIENCY Status: Chronic (6) Diabetes type 2, controlled Code(s): E11.9 - TYPE 2 DIABETES MELLITUS WITHOUT COMPLICATIONS Status: Chronic Qualifiers: Diabetes mellitus complication status: without complication (7) Acute on chronic diastolic (congestive) heart failure Code(s): I50.33 - ACUTE ON CHRONIC DIASTOLIC (CONGESTIVE) HEART FAILURE Status : Acute (8) Compensated respiratory acidosis Code(s): E87.2 - ACIDOSIS Status: Acute - Plan cont current plan of care, plan discussed w/ family, continue antibiotics, respiratory therapy, DVT proph w/lovenox * . (1) ALICIA (acute kidney injury) Code(s): N17.9 - ACUTE KIDNEY FAILURE, UNSPECIFIED Status: Acute Plan: This has improved, nephrology following. No other concnrs avoid nephrotoxic meds. Continue IV fluids. (2) Acute on chronic respiratory failure with hypoxia and hypercapnia Plan: ABG looks good improveemnt, persistant retenion of CO2 on ABG today, Pulmoanry on Board will follow recommedations, Continue Steroids IV and IV antibiotics. (3) COPD exacerbation Plan: Stbale, ABG looks improved, Will Follow above Pulmonary recommedations. (4) Pulmonary hypertension/\ Plan: Stbale today, will continue to Follow Pulmonary recommedations, Rivelto started. Cardiology Following. Stable. (5) Severe tricuspid regurgitation (6) Diabetes type 2, controlled Diabetes mellitus complication status: without complication Plan: Well controlled, Will continue with levmir and SSI. Plan to keep BG 140-180. No changes today. (7) Acute on chronic diastolic (congestive) heart failure Plan: Will continue to Monitor. pt on Dobutrex/ levophed Cardiology Following. Held lasix today. - Discharge Day Encounter end time: 09:30 Review of Systems - Review of Systems Other: Unable to Eprform ROS due to Sedation - Medications/Allergies Allergies/Adverse Reactions: Allergies Allergy/AdvReac Type Severity Reaction Status Date / Time No Known Allergies Allergy Verified 06/08/17 18:44 Medications: Current Medications Acetaminophen (Tylenol) 650 mg PO Q4H PRN PRN Reason: Headache/Fever or Pain Last Admin: 06/16/17 03:20 Dose: 650 mg Albuterol/Ipratropium (Duoneb) 3 ml NEB [id number] FEROZ Last Admin: 06/16/17 11:23 Dose: 3 ml Lipase/Protease/Amylase ([place] [id number]) 1 cap FS .PER PROTOCOL PRN PRN Reason: TUBE OCCLUSION PROTOCOL Aspirin (Aspirin Chewable) 81 mg PER TUBE DAILY [facility] Last Admin: 06/16/17 09:26 Dose: 81 mg Bisacodyl (Dulcolax) 10 mg NC Q8H PRN PRN Reason: Constipation Last Admin: 06/16/17 14:39 Dose: 10 mg Dextrose/Water (Dextrose 50%) 25 gm SLOW IVP PRN PRN PRN Reason: Hypoglycemia Glucagon (Glucagon) 1 mg IM PRN PRN PRN Reason: Hypoglycemia Dextrose/Water (D5w) 1,000 mls @ 0 mls/hr IV .Q0M PRN; As Directed PRN Reason: Hypoglycemia Norepinephrine Bitartrate (Levophed) 250 mls @ 0 mls/hr IVPB INF FEROZ; Titrate PRN Reason: Protocol Last Admin: 06/16/17 01:54 Dose: 250 mls Potassium Chloride 40 meq/ (Sodium Chloride) 270 mls @ 135 mls/hr IVPB ASDIR PRN PRN Reason: FOR SERUM K+ 2.5 - 3.5 Potassium Chloride 40 meq/ (Device) 100 mls @ 50 mls/hr IVPB ASDIR PRN PRN Reason: FOR SERUM K+ 2.5 - 3.5 Magnesium Sulfate 1 gm/ Sodium (Chloride) 102 mls @ 102 mls/hr IV PRN PRN PRN Reason: MAG LEVEL 1.4 - 2.0 Magnesium Sulfate 2 gm/ Device 100 mls @ 100 mls/hr IVPB ASDIR PRN PRN Reason: MAGNESIUM < 1.4 Potassium Phosphate 9 mmol/ (Sodium Chloride) 103 mls @ 25.75 mls/hr IVPB ASDIR PRN PRN Reason: Phosphate 1.0-1.8 Potassium Phosphate 12 mmol/ (Sodium Chloride) 254 mls @ 63.5 mls/hr IV ASDIR PRN PRN Reason: Serum phosphate 0.5-0.9 Potassium Phosphate 15 mmol/ (Sodium Chloride) 255 mls @ 63.75 mls/hr IV ASDIR PRN PRN Reason: Serum Phos < 0.5 Dobutamine HCl/Dextrose 500 mg (/ Device) 250 mls @ 0 mls/hr IVPB INF FEROZ; As Directed PRN Reason: Protocol Last Admin: 06/15/17 19:19 Dose: 250 mls Fentanyl Citrate 2,000 mcg/ (Sodium Chloride) 100 mls @ 0 mls/hr IV INF FEROZ PRN Reason: As Directed Last Admin: 06/16/17 04:15 Dose: 100 mls Dextrose/Water (D5w) 1,000 mls @ 50 mls/hr IV .Q20H [facility] Last Admin: 06/16/17 14:46 Dose: 1,000 mls Insulin Human Regular (Humulin R) 0 units SC .MILD SLIDING SCALE PRN PRN Reason: Mild Correctional Scale Last Admin: 06/14/17 05:38 Dose: 2 unit Insulin Human Regular (Humulin R) 0 units SC .BEDTIME SLIDING SC PRN PRN Reason: Bedtime Correctional Scale Levothyroxine Sodium (Synthroid) 75 mcg PO 0600 [facility] Last Admin: 06/16/17 05:19 Dose: 75 mcg Magnesium Oxide (Magnesium Oxide) 400 mg PO BIDPRN PRN PRN Reason: FOR SERUM MAG 1.4 - 2.0 Magnesium Oxide (Magnesium Oxide) 800 mg PO PRN PRN PRN Reason: FOR SERUM MAG < 1.4 Methylprednisolone Sodium Succinate (Solu-Medrol) 40 mg IVP DAILY [facility] Last Admin: 06/16/17 09:27 Dose: 40 mg Miscellaneous Medication (Phos-Nak) 1 pkt PO TIDPRN PRN PRN Reason: FOR PHOS LEVEL 1.0 - 1.8 Miscellaneous Medication (Phos-Nak) 2 pkt PO TIDPRN PRN PRN Reason: FOR PHOS LEVEL 0.5 - 1.0 Ccu Electrolyte (Replacement Protocol) 0 each FS PRN PRN PRN Reason: FOR ELECTROLYTE REPLACEMENT Ondansetron HCl (Zofran) 4 mg IVP Q6H PRN PRN Reason: Nausea/Vomiting Potassium Chloride (K-Dur) 40 meq PO ASDIR PRN PRN Reason: FOR SERUM K+ 2.5 - 3.5 Potassium Chloride (Klor-Con) 40 meq PER TUBE ASDIR PRN PRN Reason: FOR SERUM K+ 2.5-3.5 Propofol (Diprivan) 1,000 mg IV INF PRN; Protocol PRN Reason: TO ACHIEVE ESTRADA SCORE 2-3 Last Admin: 06/16/17 14:44 Dose: 1,000 mg Sildenafil Citrate (Revatio) 20 mg PER TUBE TID FEROZ Last Admin: 06/16/17 09:26 Dose: 20 mg Sodium Bicarbonate (Bicarbonate, Sodium) 650 mg PER TUBE .PER PROTOCOL PRN PRN Reason: ENTERAL TUBE OCCLUSION
[2017-06-17 05:21] LABS: Anion Gap 10 mmol/L (10-20); BUN (Urea Nitrogen) 49 mg/dL (9.8-20.1); Calc. Creatinine Clearance 108 mL/min (70-130); Calcium 10.9 mg/dL (7.8-10.44); Carbon Dioxide 33 mmol/L (22-29); Chloride 108 mmol/L (98-107); Estimated GFR-MDRD Greater than 90; Glucose 145 mg/dL (70-105); Sodium 147 mmol/L (136-145)
[2017-06-17 05:32] LABS: Band 4 % (5-11); Lymphocytes 11 % (21-51); MDiff Complete? YES; Mean Corpuscular HGB CONC 30.8 g/dL (32.0-36.0); Mean Corpuscular Hemoglobin 31.5 pg (27.0-31.0); Mean Platelet Volume 10.5 fL (7.4-10.4); Monocytes 3 % (0-10); Neutrophil 82 % (42-75); PLT Morphology Comment Appears Decreased; Platelet Count 81 thou/uL (130-400); RBC Distribution Width 13.3 % (11.5-14.5); Red Blood Cell (RBC) Count 5.06 mill/uL (4.20-5.40); White Blood Cell (WBC) Count 15.4 thou/uL (4.8-10.8)
[2017-06-17] MEDS: Levothyroxine Sodium 75 MCG TAB PO SCH (06:18)
--- NOTE | 2017-06-17 09:07 | PDOC.CTH ---
<Marika Ortega - Last Filed: 06/17/17 09:05> Cardiology Progress Note - Subjective The pt seen and examined. No overnight events. She still remains on mechanical ventilation with Vent sedation. She failed weaning trial yesterday. RN has been trying to wean off of Levophed. - Objective Vital Signs Temp Pulse Resp BP Pulse Ox 06/17/17 08:00 99.2 F 84 16 06/17/17 07:05 98 116/72 06/17/17 07:02 103 H 16 96 06/17/17 05:22 15 06/17/17 04:00 98.9 F 16 06/17/17 02:43 90 97/53 L 06/17/17 01:52 16 06/17/17 00:00 99.0 F 06/16/17 23:52 18 06/16/17 23:18 88 99/57 L 06/16/17 22:00 18 Admit Weight 168 lb Weight 178 lb 12.718 oz 06/16/17 06/17/17 06/18/17 06:59 06:59 06:59 Intake Total 1403.6 2662.5 Output Total 2260 1825 120 Balance -856.4 837.5 -120 - Physical Examination Neck: no JVD present Lungs: other: (diminished at bases) Heart: RRR Abdomen: soft Extremities: other: (No edema) - Telemetry Telemetry Rhythm: SR - Labs Result Diagrams: 06/17/17 04:06 06/17/17 04:06 Troponin/CKMB CK-MB (CK-2) 6.3 ng/mL (0-6.6) 06/08/17 14:20 Troponin I 0.034 ng/mL (< 0.028) H 06/09/17 04:03 - Assessment/Plan 1. Acute on chronic respiratory failure 2ndary to COPD exacerbation - on Mechanical Vent with vent sedation; The pt failed weaning trial yesterday; Not able to wean from the vent yet; managed by floor representative. 2. Severe Pulm. HTN - 2ndary to Rt side CHF; stable with Revatio 20mg TID; cont. monitor 3. Hypotension - On Dobutamine and Levophed IV; cont. monitor 4. Acute on Chronic diastolic HF - stable with Dobutamine; cont. monitor 5. DM type 2 - on SS insulin 6. Hypothyroidism - managed by PCP 7. Current smoker - MAR reviewed Review of Systems - Review of Systems Constitutional: reports: see HPI EENTM: reports: see HPI Respiratory: reports: see HPI Cardiac (ROS): reports: see HPI ABD/GI: reports: see HPI : reports: see HPI Musculoskeletal: reports: see HPI Skin: reports: see HPI <SaldanaIraj - Last Filed: 06/17/17 10:13> Cardiology Progress Note - Objective Vital Signs Temp Pulse Resp BP Pulse Ox 06/17/17 08:00 99.2 F 84 16 06/17/17 07:05 98 116/72 06/17/17 07:02 103 H 16 96 06/17/17 05:22 15 06/17/17 04:00 98.9 F 16 06/17/17 02:43 90 97/53 L 06/17/17 01:52 16 06/17/17 00:00 99.0 F 06/16/17 23:52 18 06/16/17 23:18 88 99/57 L Admit Weight 168 lb Weight 178 lb 12.718 oz 06/16/17 06/17/17 06/18/17 06:59 06:59 06:59 Intake Total 1403.6 2662.5 Output Total 2260 1825 195 Balance -856.4 837.5 -195 - Labs Result Diagrams: 06/17/17 04:06 06/17/17 04:06 Troponin/CKMB CK-MB (CK-2) 6.3 ng/mL (0-6.6) 06/08/17 14:20 Troponin I 0.034 ng/mL (< 0.028) H 06/09/17 04:03 - Assessment/Plan Pt. seen and eval by me. I agree with the A/P by the TERMINAL CLERK. BUN:creat. indicates she may be over diuresed. Stable for now. Still unable to wean from the ventilator. Difficult situation. Multiple medical issues.
[2017-06-17] MEDS: DOBUTamine 500 mg/250 ml 500 MG in Premix Bag 1 BAG IVPB SCH (09:31)
[2017-06-17] MEDS: Sildenafil Citrate 20 MG TAB PER TUBE SCH ×3 (09:32→20:26)
[2017-06-17] MEDS: Dextrose 5% in Water 1,000 ML IV SCH (10:26)
[2017-06-17] MEDS: fentaNYL Citrate/PF 2,000 MCG in Sodium Chloride 0.9% 60 ML IV SCH (11:30)
[2017-06-17] MEDS ORDERED: D5 1/4 NS 1,000 ML IV SCH (11:30)
[2017-06-17] MEDS: Norepinephrine 8 MG/0.9% NS 250 ML IVPB SCH (15:05)
[2017-06-17] MEDS: Insulin Regular 300 UNITS/3 ML VIAL SC PRN (15:13)
--- NOTE | 2017-06-17 17:14 | PDOC.PN ---
- Subjective Encounter Start Date: 06/17/17 Encounter Start Time: 09:00 -: non-verbal PT remains intubated. - Objective Resuscitation Status: Resuscitation Status FULL:Full Resuscitation MAR Reviewed: Yes Vital Signs & Weight: Vital Signs (12 hours) Temp Pulse Resp BP Pulse Ox 06/17/17 15:00 99.6 F 06/17/17 14:49 81 89/56 L 06/17/17 14:46 88 21 H 99 06/17/17 14:00 19 06/17/17 12:00 98.8 F 20 06/17/17 11:25 83 102/57 L 06/17/17 11:24 84 17 99 06/17/17 08:00 99.2 F 84 16 06/17/17 07:05 98 116/72 06/17/17 07:02 103 H 16 96 06/17/17 05:22 15 Weight Admit Weight 168 lb Weight 178 lb 12.718 oz Most Recent Monitor Data Heart Rate from ECG 91 NIBP 100/56 NIBP BP-Mean 73 Respiration from ECG 18 SpO2 95 I&O: 06/16/17 06/17/17 06/18/17 06:59 06:59 06:59 Intake Total 1403.6 2662.5 120 Output Total 2260 1825 565 Balance -856.4 837.5 -445 Result Diagrams: 06/17/17 04:06 06/17/17 04:06 Additional Labs: Accuchecks 06/17/17 06/17/17 06/17/17 15:01 09:30 05:25 POC Glucose 161 H 121 H 140 H 06/16/17 23:52 POC Glucose 129 H Radiology Reviewed by me: Yes Phys Exam - Physical Examination Neck: no JVD Respiratory: wheezing present Cardiovascular: RRR, no significant murmur Gastrointestinal: soft, non-tender Musculoskeletal: edema present Neurological: non-focal, normal sensation Dx/Plan (1) ALICIA (acute kidney injury) Code(s): N17.9 - ACUTE KIDNEY FAILURE, UNSPECIFIED Status: Acute (2) Acute on chronic respiratory failure with hypoxia and hypercapnia Code(s): J96.21 - ACUTE AND CHRONIC RESPIRATORY FAILURE WITH HYPOXIA; J96.22 - ACUTE AND CHRONIC RESPIRATORY FAILURE WITH HYPERCAPNIA Status: Acute (3) COPD exacerbation Code(s): J44.1 - CHRONIC OBSTRUCTIVE PULMONARY DISEASE W (ACUTE) EXACERBATION Status: Acute (4) Pulmonary hypertension Code(s): I27.20 - PULMONARY HYPERTENSION, UNSPECIFIED Status: Acute (5) Severe tricuspid regurgitation Code(s): I07.1 - RHEUMATIC TRICUSPID INSUFFICIENCY Status: Chronic (6) Diabetes type 2, controlled Code(s): E11.9 - TYPE 2 DIABETES MELLITUS WITHOUT COMPLICATIONS Status: Chronic Qualifiers: Diabetes mellitus complication status: without complication (7) Acute on chronic diastolic (congestive) heart failure Code(s): I50.33 - ACUTE ON CHRONIC DIASTOLIC (CONGESTIVE) HEART FAILURE Status : Acute (8) Compensated respiratory acidosis Code(s): E87.2 - ACIDOSIS Status: Acute (9) Yeast pharyngitis Code(s): B37.89 - OTHER SITES OF CANDIDIASIS Status: Acute - Plan cont current plan of care, DVT proph w/lovenox 1. Yeast in Respiratory secretions: Will do Fluconazole 100mg IV daily, will start with 200mg IV now. (1) ALICIA (acute kidney injury) Plan: This has improved, nephrology following. No other concnrs avoid nephrotoxic meds. Continue IV fluids. (2) Acute on chronic respiratory failure with hypoxia and hypercapnia Plan: ABG looks good improveemnt, persistant retenion of CO2 on ABG today, Pulmoanry on Board will follow recommedations, Continue Steroids IV and IV antibiotics. (3) COPD exacerbation Plan: Stbale, ABG looks improved, Will Follow above Pulmonary recommedations. (4) Pulmonary hypertension/\ Plan: Stbale today, will continue to Follow Pulmonary recommedations, Rivelto started. Cardiology Following. Stable. (5) Severe tricuspid regurgitation (6) Diabetes type 2, controlled Diabetes mellitus complication status: without complication Plan: Well controlled, Will continue with levmir and SSI. Plan to keep BG 140-180. No changes today.. - Discharge Day Encounter end time: 09:30 Review of Systems - Review of Systems Other: NO ROS for pt is intubated. - Medications/Allergies Allergies/Adverse Reactions: Allergies Allergy/AdvReac Type Severity Reaction Status Date / Time No Known Allergies Allergy Verified 06/08/17 18:44 Medications: Current Medications Acetaminophen (Tylenol) 650 mg PO Q4H PRN PRN Reason: Headache/Fever or Pain Last Admin: 06/16/17 03:20 Dose: 650 mg Albuterol/Ipratropium (Duoneb) 3 ml NEB [id number] [id number] Last Admin: 06/17/17 14:46 Dose: 3 ml Lipase/Protease/Amylase ([place] [id number]) 1 cap FS .PER PROTOCOL PRN PRN Reason: TUBE OCCLUSION PROTOCOL Aspirin (Aspirin Chewable) 81 mg PER TUBE DAILY FEROZ Last Admin: 06/17/17 09:32 Dose: 81 mg Bisacodyl (Dulcolax) 10 mg ID Q8H PRN PRN Reason: Constipation Last Admin: 06/16/17 14:39 Dose: 10 mg Dextrose/Water (Dextrose 50%) 25 gm SLOW IVP PRN PRN PRN Reason: Hypoglycemia Glucagon (Glucagon) 1 mg IM PRN PRN PRN Reason: Hypoglycemia Dextrose/Water (D5w) 1,000 mls @ 0 mls/hr IV .Q0M PRN; As Directed PRN Reason: Hypoglycemia Norepinephrine Bitartrate (Levophed) 250 mls @ 0 mls/hr IVPB INF FEROZ; Titrate PRN Reason: Protocol Last Admin: 06/17/17 15:05 Dose: 250 mls Potassium Chloride 40 meq/ (Sodium Chloride) 270 mls @ 135 mls/hr IVPB ASDIR PRN PRN Reason: FOR SERUM K+ 2.5 - 3.5 Potassium Chloride 40 meq/ (Device) 100 mls @ 50 mls/hr IVPB ASDIR PRN PRN Reason: FOR SERUM K+ 2.5 - 3.5 Magnesium Sulfate 1 gm/ Sodium (Chloride) 102 mls @ 102 mls/hr IV PRN PRN PRN Reason: MAG LEVEL 1.4 - 2.0 Magnesium Sulfate 2 gm/ Device 100 mls @ 100 mls/hr IVPB ASDIR PRN PRN Reason: MAGNESIUM < 1.4 Potassium Phosphate 9 mmol/ (Sodium Chloride) 103 mls @ 25.75 mls/hr IVPB ASDIR PRN PRN Reason: Phosphate 1.0-1.8 Potassium Phosphate 12 mmol/ (Sodium Chloride) 254 mls @ 63.5 mls/hr IV ASDIR PRN PRN Reason: Serum phosphate 0.5-0.9 Potassium Phosphate 15 mmol/ (Sodium Chloride) 255 mls @ 63.75 mls/hr IV ASDIR PRN PRN Reason: Serum Phos < 0.5 Dobutamine HCl/Dextrose 500 mg (/ Device) 250 mls @ 0 mls/hr IVPB INF FEROZ; As Directed PRN Reason: Protocol Last Admin: 06/17/17 09:31 Dose: 250 mls Fentanyl Citrate 2,000 mcg/ (Sodium Chloride) 100 mls @ 0 mls/hr IV INF FEROZ PRN Reason: As Directed Last Admin: 06/17/17 11:30 Dose: 100 mls Dextrose/Sodium Chloride (D5 1/4 Ns) 1,000 mls @ 50 mls/hr IV .Q20H [facility] Last Admin: 06/17/17 11:43 Dose: 1,000 mls Insulin Human Regular (Humulin R) 0 units SC .MILD SLIDING SCALE PRN PRN Reason: Mild Correctional Scale Last Admin: 06/17/17 15:13 Dose: 2 unit Insulin Human Regular (Humulin R) 0 units SC .BEDTIME SLIDING SC PRN PRN Reason: Bedtime Correctional Scale Levothyroxine Sodium (Synthroid) 75 mcg PO 0600 [facility] Last Admin: 06/17/17 06:18 Dose: 75 mcg Magnesium Oxide (Magnesium Oxide) 400 mg PO BIDPRN PRN PRN Reason: FOR SERUM MAG 1.4 - 2.0 Magnesium Oxide (Magnesium Oxide) 800 mg PO PRN PRN PRN Reason: FOR SERUM MAG < 1.4 Methylprednisolone Sodium Succinate (Solu-Medrol) 40 mg IVP DAILY [facility] Last Admin: 06/17/17 09:32 Dose: 40 mg Miscellaneous Medication (Phos-Nak) 1 pkt PO TIDPRN PRN PRN Reason: FOR PHOS LEVEL 1.0 - 1.8 Miscellaneous Medication (Phos-Nak) 2 pkt PO TIDPRN PRN PRN Reason: FOR PHOS LEVEL 0.5 - 1.0 Ccu Electrolyte (Replacement Protocol) 0 each FS PRN PRN PRN Reason: FOR ELECTROLYTE REPLACEMENT Ondansetron HCl (Zofran) 4 mg IVP Q6H PRN PRN Reason: Nausea/Vomiting Potassium Chloride (K-Dur) 40 meq PO ASDIR PRN PRN Reason: FOR SERUM K+ 2.5 - 3.5 Potassium Chloride (Klor-Con) 40 meq PER TUBE ASDIR PRN PRN Reason: FOR SERUM K+ 2.5-3.5 Propofol (Diprivan) 1,000 mg IV INF PRN; Protocol PRN Reason: TO ACHIEVE ESTRADA SCORE 2-3 Last Admin: 06/16/17 14:44 Dose: 1,000 mg Sildenafil Citrate (Revatio) 20 mg PER TUBE TID FEROZ Last Admin: 06/17/17 14:09 Dose: 20 mg Sodium Bicarbonate (Bicarbonate, Sodium) 650 mg PER TUBE .PER PROTOCOL PRN PRN Reason: ENTERAL TUBE OCCLUSION
[2017-06-17] MEDS ORDERED: Fluconazole In NaCl,Iso-Osm 200 MG in Premix Bag 1 BAG IVPB SCH ×2 (18:00)
--- NOTE | 2017-06-18 00:18 | HP ---
DATE OF SERVICE: 06/17/2017 SERVICE: Pulmonary Medicine. INTERVAL HISTORY: The patient is doing fine from a respiratory standpoint. She is breathing comfort ably on mechanical ventilation. She is awake and alert. She is following all commands. Otherwise, there has been no interval changes in her condition. Her lungs are opening up a little bit. We put her on a spontaneous breathing trial and she was marginal today. Hopefully, tomorrow should be able to tolerate a full spontaneous breathing trial. She still demonstrates reduced strength. PHYSICAL EXAMINATION: VITAL SIGNS: Afebrile with a T-max of 99.0. Pulse 92, blood pressure 113/67, respirations 24, satur ation 94% on 30% FiO2 and PEEP of 3.5. GENERAL: The patient is awake and alert, in no apparent distress. LUNGS: Decent air entry. There is a prolonged expiratory phase and wheezing. She is moving better air than prior. No crackles. HEART: Normal rate, regular. ABDOMEN: Soft, nontender, nondistended. Bowel sounds are positive. MUSCULOSKELETAL: No cyanosis or clubbing. No pitting in the bilateral lower extremities. NEUROLOGIC: Grossly nonfocal. LABORATORY DATA: WBC 15.4, hemoglobin 16.0, platelets 81,000. Neutrophils are 82% There were 4% ban ds. INR 1.1. Sodium 147 and roughly stable. Basic metabolic profile is otherwise unremarkable. Gl ucose 145, calcium 10.9. Urinalysis is unremarkable. Sputum is growing some yeast species. Urine c ulture and blood culture is otherwise unremarkable. Influenza A and B is negative. ASSESSMENT: 1. Acute hypoxic respiratory failure, stable. 2. Chronic obstructive pulmonary disease with acute exacerbation. 3. Chronic hypercapnic respiratory failure. 4. Pulmonary hypertension, severe. 5. Systemic inflammatory response syndrome, stabilizing and improving. PLAN: The patient will be maintained on mechanical ventilation for at least an additional 24 hours. Her lungs seemed to be opening up slightly. I am hopeful that, we will be able to extubate her in 1 -2 days. We may need to do this directly to BiPAP. Supportive measures were otherwise be continued. CRITICAL CARE TIME: Thirty minutes.
[2017-06-18 05:09] LABS: Anion Gap 10 mmol/L (10-20); BUN (Urea Nitrogen) 44 mg/dL (9.8-20.1); Calc. Creatinine Clearance 129 mL/min (70-130); Calcium 10.7 mg/dL (7.8-10.44); Carbon Dioxide 33 mmol/L (22-29); Chloride 106 mmol/L (98-107); Estimated GFR-MDRD Greater than 90; Glucose 122 mg/dL (70-105); Magnesium 1.9 mg/dL (1.6-2.6); Potassium 3.9 mmol/L (3.5-5.1); Sodium 145 mmol/L (136-145)
[2017-06-18 05:16] LABS: #Lymphocytes 1.2 thou/uL (1.20-3.40); #Monocytes 0.7 thou/uL (0.11-0.59); #Neutrophils 14.2 thou/uL (1.40-6.50); %Basophils 0.2 % (0.0-1.0); %Eosinophils 0.3 % (0.0-10.0); %Lymphocytes 7.5 % (21.0-51.0); %Monocytes 4.1 % (0.0-10.0); %Neutrophils 87.9 % (42.0-75.0); Hemoglobin 15.8 g/dL (12.0-16.0); Mean Corpuscular HGB CONC 30.5 g/dL (32.0-36.0); Mean Corpuscular Hemoglobin 31.2 pg (27.0-31.0); Mean Platelet Volume 12.4 fL (7.4-10.4); Platelet Count 88 thou/uL (130-400); RBC Distribution Width 13.1 % (11.5-14.5); Red Blood Cell (RBC) Count 5.06 mill/uL (4.20-5.40); White Blood Cell (WBC) Count 16.2 thou/uL (4.8-10.8)
[2017-06-18] MEDS: Levothyroxine Sodium 75 MCG TAB PO SCH (06:40)
--- NOTE | 2017-06-18 08:40 | PDOC.CTH ---
<Marika Ortega - Last Filed: 06/18/17 08:38> Cardiology Progress Note - Subjective The pt seen and examined. No overnight events. No cardiac complaints. Her vent sedation are off for weaning trial. She is up to chair. - Objective Vital Signs Temp Pulse Resp BP Pulse Ox 06/18/17 08:03 96 121/70 06/18/17 08:01 91 23 H 96 06/18/17 08:00 98.3 F 100 29 H 95 06/18/17 04:00 99.1 F 06/18/17 02:11 100 06/18/17 02:10 100 25 H 93 L 06/18/17 00:00 99.0 F 24 H 06/17/17 22:16 88 20 96 06/17/17 22:00 23 H Admit Weight 168 lb Weight 178 lb 2.136 oz 06/17/17 06/18/17 06/19/17 06:59 06:59 06:59 Intake Total 2662.5 1875.1 Output Total 1825 1515 Balance 837.5 360.1 - Physical Examination General/Neuro: alert & oriented x3 Neck: no JVD present Lungs: other: (coarse and diminished at bases) Heart: RRR Abdomen: soft Extremities: other: (mild edema to bilat foot) - Telemetry Telemetry Rhythm: SR - Labs Result Diagrams: 06/18/17 04:23 06/18/17 04:23 Troponin/CKMB CK-MB (CK-2) 6.3 ng/mL (0-6.6) 06/08/17 14:20 Troponin I 0.034 ng/mL (< 0.028) H 06/09/17 04:03 - Assessment/Plan 1. Acute on chronic respiratory failure 2ndary to COPD exacerbation - The pt is tolerating Weaning trial at this moment; on Mechanical Vent with vent sedation; managed by flake drier. 2. Severe Pulm. HTN - 2ndary to Rt side CHF; stable with Revatio 20mg TID; cont. monitor 3. Hypotension - On Dobutamine and Levophed IV; cont. monitor 4. Acute on Chronic diastolic HF - stable with Dobutamine; cont. monitor 5. DM type 2 - on SS insulin 6. Hypothyroidism - managed by PCP 7. Current smoker - smoking cessation education given the pt MAR reviewed Review of Systems - Review of Systems Constitutional: reports: no symptoms reported EENTM: reports: no symptoms reported Respiratory: reports: no symptoms reported Cardiac (ROS): reports: no symptoms reported ABD/GI: reports: no symptoms reported <Iraj Saldana - Last Filed: 06/18/17 14:22> Cardiology Progress Note - Objective Vital Signs Temp Pulse Resp BP Pulse Ox 06/18/17 12:00 97.6 F 25 H 06/18/17 10:54 94 120/67 06/18/17 10:52 96 28 H 93 L 06/18/17 08:03 96 121/70 06/18/17 08:01 91 23 H 96 06/18/17 08:00 98.3 F 100 29 H 95 06/18/17 07:00 98.3 F 06/18/17 04:00 99.1 F Admit Weight 168 lb Weight 178 lb 2.136 oz 06/17/17 06/18/17 06/19/17 06:59 06:59 06:59 Intake Total 2662.5 1875.1 300.4 Output Total 1825 1515 320 Balance 837.5 360.1 -19.6 - Labs Result Diagrams: 06/18/17 04:23 06/18/17 04:23 Troponin/CKMB CK-MB (CK-2) 6.3 ng/mL (0-6.6) 06/08/17 14:20 Troponin I 0.034 ng/mL (< 0.028) H 06/09/17 04:03 - Assessment/Plan pt. seen and eval. by me. I agree with the A/P by the ACTIVITIES DIRECTOR SCOUTING. She is awake and follows commands. Still intubated. Chest clear anteriorly. RRR.
[2017-06-18] MEDS: Fluconazole In NaCl,Iso-Osm 100 MG, Admixture Fee 1 EACH in Premix Bag 1 BAG IVPB SCH (09:21)
[2017-06-18] MEDS: Sildenafil Citrate 20 MG TAB PER TUBE SCH ×3 (09:22→22:44)
[2017-06-18] MEDS ORDERED: Lorazepam 2 MG/ML VIAL SLOW IVP PRN (11:10)
--- NOTE | 2017-06-18 11:22 | PRG ---
DATE OF SERVICE: 06/18/2017 SERVICE: Pulmonary Medicine. INTERVAL HISTORY: The patient is doing great from a respiratory standpoint. She is breathing comfortably on mechanical ventilation. This morning, she took a spontaneous breathing trial and did quite well with this. After about 2 hours so, she started having increasing work of breathing and was struggling quite a bit. She got sedated overnight once again. This morning, she is wide awake, but remains extraordinarily weak and is using her upper or lower extremities. She is able to wiggle everything but does not have any strength. PHYSICAL EXAMINATION: VITAL SIGNS: Afebrile, pulse 94, blood pressure 120/67, respirations 28, saturation 93% on 40% FiO2 and PEEP of 3.5. GENERAL: Patient is awake, alert, no apparent distress. She is following commands and moving all four extremities. She demonstrates diffuse weakness which is quite extreme. HEENT: Normocephalic, atraumatic. Sclerae are white, conjunctivae pink. Oral mucosa is moist without lesions. LUNGS: Decent air entry. No prolonged expiratory phase. Crackles are present. No wheezing today. HEART: Normal rate, regular. ABDOMEN: Soft, nontender, nondistended. Bowel sounds are positive. MUSCULOSKELETAL: No cyanosis or clubbing. There is diffuse trace to 1+ pitting throughout. GENITOURINARY: Watkins catheter in place. NEUROLOGIC: Grossly nonfocal. LABORATORY DATA: WBC 16.2, hemoglobin 15.8, platelets 88,000 and roughly stable. Neutrophils are 87%. INR 1.1. Basic metabolic profile is unremarkable. Calcium remains elevated at 10.7. Magnesium is 1.9. Urinalysis is unremarkable. She is net positive 300 mL over the last 24 hours. ASSESSMENT: 1. Acute hypoxic respiratory failure, stable. 2. Chronic obstructive pulmonary disease with acute exacerbation. 3. Chronic hypercapnic respiratory failure. 4. Pulmonary hypertension, severe. 5. Systemic inflammatory response syndrome, stabilizing. PLAN: We will continue supportive care including nebulized medications, antibiotics and other supportive measures. I am going to CPAP her again this afternoon with no intention of extubating her. In the morning, we will CPAP around 5/5 for a period of 30 minutes and if she meets criteria, extubation will be performed. CRITICAL CARE TIME: 30 minutes. MTDD
--- NOTE | 2017-06-18 14:19 | PDOC.PN ---
- Subjective Encounter Start Date: 06/18/17 Encounter Start Time: 09:15 -: non-verbal, old records requested/rev Pt seen and examined, chart reviewed in its entirety. This is my first visit with this patient. Pt orally intubated, on SIMV, sedation off. Shakes/nods her head appropriately. Dr Salter has seen since my visit, his note reviewed. CPAP this afternoon, and if does okay, CPAP in AM. if meets criteria, extuabte tomorrow AM. no F/c, no N/V/D/C, no CP, no pain 10 point ROS performed and neg for all systems except as above - Objective Resuscitation Status: Resuscitation Status FULL:Full Resuscitation MAR Reviewed: Yes Vital Signs & Weight: Vital Signs (12 hours) Temp Pulse Resp BP Pulse Ox 06/18/17 12:00 97.6 F 25 H 06/18/17 10:54 94 120/67 06/18/17 10:52 96 28 H 93 L 06/18/17 08:03 96 121/70 06/18/17 08:01 91 23 H 96 06/18/17 08:00 98.3 F 100 29 H 95 06/18/17 07:00 98.3 F 06/18/17 04:00 99.1 F Weight Admit Weight 168 lb Weight 178 lb 2.136 oz Most Recent Monitor Data Heart Rate from ECG 87 NIBP 103/48 NIBP BP-Mean 71 Respiration from ECG 22 SpO2 94 I&O: 06/17/17 06/18/17 06/19/17 06:59 06:59 06:59 Intake Total 2662.5 1875.1 300.4 Output Total 1825 1515 320 Balance 837.5 360.1 -19.6 Result Diagrams: 06/18/17 04:23 06/18/17 04:23 Additional Labs: Accuchecks 06/18/17 06/18/17 06/18/17 13:06 06:30 00:33 POC Glucose 128 H 126 H 119 H 06/17/17 15:01 POC Glucose 161 H Radiology Reviewed by me: Yes EKG Reviewed by me: Yes Phys Exam - Physical Examination Constitutional: NAD HEENT: PERRLA, moist MMs, sclera anicteric, oral pharynx no lesions orall ETT and NGT in place Neck: no nodes, no JVD, supple, full ROM Respiratory: no rhonchi, clear to auscultation bilateral bibasilar crackles present Cardiovascular: RRR, no rub 3/6 HSM at apex Gastrointestinal: soft, non-tender, no distention, positive bowel sounds Musculoskeletal: pulses present, edema present Neurological: non-focal, normal sensation, moves all 4 limbs Lymphatic: no nodes Skin: no rash, normal turgor, cap refill <2 seconds Dx/Plan (1) Acute on chronic respiratory failure with hypoxia and hypercapnia Code(s): J96.21 - ACUTE AND CHRONIC RESPIRATORY FAILURE WITH HYPOXIA; J96.22 - ACUTE AND CHRONIC RESPIRATORY FAILURE WITH HYPERCAPNIA Status: Acute (2) COPD exacerbation Code(s): J44.1 - CHRONIC OBSTRUCTIVE PULMONARY DISEASE W (ACUTE) EXACERBATION Status: Acute (3) Pulmonary hypertension Code(s): I27.20 - PULMONARY HYPERTENSION, UNSPECIFIED Status: Chronic (4) Yeast pharyngitis Code(s): B37.89 - OTHER SITES OF CANDIDIASIS Status: Resolved (5) Diabetes type 2, controlled Code(s): E11.9 - TYPE 2 DIABETES MELLITUS WITHOUT COMPLICATIONS Status: Chronic Qualifiers: Diabetes mellitus complication status: without complication Diabetes mellitus mcc insulin use: without glass unloading equipment tender use Qualified Code(s): E11.9 - Type 2 diabetes mellitus without complications (6) Severe tricuspid regurgitation Code(s): I07.1 - RHEUMATIC TRICUSPID INSUFFICIENCY Status: Chronic (7) Acute on chronic diastolic (congestive) heart failure Code(s): I50.33 - ACUTE ON CHRONIC DIASTOLIC (CONGESTIVE) HEART FAILURE Status : Acute (8) Hypertension Code(s): I10 - ESSENTIAL (PRIMARY) HYPERTENSION Status: Chronic Qualifiers: Hypertension type: essential hypertension Qualified Code(s): I10 - Essential (primary) hypertension (9) Hypothyroidism Code(s): E03.9 - HYPOTHYROIDISM, UNSPECIFIED Status: Chronic Qualifiers: Hypothyroidism type: acquired Qualified Code(s): E03.9 - Hypothyroidism, unspecified (10) ALICIA (acute kidney injury) Code(s): N17.9 - ACUTE KIDNEY FAILURE, UNSPECIFIED Status: Resolved - Plan cont current plan of care, PT/OT, respiratory therapy * .
[2017-06-19 04:55] LABS: Anion Gap 9 mmol/L (10-20); BUN (Urea Nitrogen) 44 mg/dL (9.8-20.1); Calc. Creatinine Clearance 128 mL/min (70-130); Calcium 10.5 mg/dL (7.8-10.44); Carbon Dioxide 36 mmol/L (22-29); Chloride 105 mmol/L (98-107); Estimated GFR-MDRD Greater than 90; Glucose 114 mg/dL (70-105); Magnesium 1.9 mg/dL (1.6-2.6); Potassium 4.1 mmol/L (3.5-5.1); Sodium 146 mmol/L (136-145)
[2017-06-19] MEDS: Levothyroxine Sodium 75 MCG TAB PO SCH (05:53)
[2017-06-19] MEDS: Acetaminophen 325 MG TAB PO PRN (08:10)
[2017-06-19] MEDS: Sildenafil Citrate 20 MG TAB PER TUBE SCH ×3 (08:11→21:12)
[2017-06-19] MEDS: Fluconazole In NaCl,Iso-Osm 100 MG, Admixture Fee 1 EACH in Premix Bag 1 BAG IVPB SCH (10:02)
[2017-06-19] MEDS ORDERED: Norepinephrine 8 MG in Sodium Chloride 0.9% 250 ML 250 ML IVPB SCH (10:45)
[2017-06-19] MEDS ORDERED: Norepinephrine 8 MG in Sodium Chloride 0.9% 250 ML 242 ML IVPB SCH (10:45)
[2017-06-19] MEDS: DOBUTamine 500 mg/250 ml 500 MG in Premix Bag 1 BAG IVPB SCH (11:27)
[2017-06-19] MEDS: Magnesium Oxide 400 MG TAB PO PRN (12:48)
--- NOTE | 2017-06-19 14:48 | PDOC.PN ---
- Subjective Encounter Start Date: 06/19/17 Encounter Start Time: 11:10 -: non-verbal Pt orally intubated, off sedtion since yestrday AM. CPAP yesterday afternoon, but got tired and placed backon SIMV. no CPAP trial today. more active with arms today Febrile to 100.4, defervesced now. No N/V/d/c, denies pain - Objective Resuscitation Status: Resuscitation Status FULL:Full Resuscitation MAR Reviewed: Yes Vital Signs & Weight: Vital Signs (12 hours) Temp Pulse Resp BP Pulse Ox 06/19/17 11:00 99.2 F 89 93/49 L 06/19/17 10:00 20 06/19/17 08:45 93 107/59 L 06/19/17 08:00 24 H 06/19/17 07:04 99.5 F 93 18 95 06/19/17 07:00 98.1 F 06/19/17 06:00 18 06/19/17 04:00 100.4 F H 20 Weight Admit Weight 168 lb Weight 175 lb 11.335 oz Most Recent Monitor Data Heart Rate from ECG 95 NIBP 93/49 NIBP BP-Mean 62 Respiration from ECG 15 SpO2 96 I&O: 06/18/17 06/19/17 06/20/17 06:59 06:59 06:59 Intake Total 1875.1 2143.1 330 Output Total 1515 1153 245 Balance 360.1 990.1 85 Result Diagrams: 06/18/17 04:23 06/19/17 04:10 Additional Labs: Accuchecks 06/19/17 06/19/17 06/18/17 11:01 04:14 22:18 POC Glucose 121 H 94 121 H 06/18/17 16:51 POC Glucose 141 H Radiology Reviewed by me: Yes EKG Reviewed by me: Yes Phys Exam - Physical Examination Constitutional: NAD HEENT: PERRLA, moist MMs, sclera anicteric, oral pharynx no lesions orally intubated, OGT in place Neck: no nodes, no JVD, supple, full ROM Respiratory: no wheezing, no rales, no rhonchi, clear to auscultation bilateral Cardiovascular: RRR, no significant murmur, no rub Gastrointestinal: soft, non-tender, no distention, positive bowel sounds Musculoskeletal: pulses present, edema present Neurological: non-focal, moves all 4 limbs Lymphatic: no nodes Deviation from normal: awake and alert, follwoing commands Skin: no rash, normal turgor, cap refill <2 seconds Dx/Plan (1) Acute on chronic respiratory failure with hypoxia and hypercapnia Code(s): J96.21 - ACUTE AND CHRONIC RESPIRATORY FAILURE WITH HYPOXIA; J96.22 - ACUTE AND CHRONIC RESPIRATORY FAILURE WITH HYPERCAPNIA Status: Acute Comment : weaning off vent per pulm. Will be slow i suspect (2) COPD exacerbation Code(s): J44.1 - CHRONIC OBSTRUCTIVE PULMONARY DISEASE W (ACUTE) EXACERBATION Status: Acute Comment: improved lung sounds. weaning off vent. continue nebs , steroids (3) Pulmonary hypertension Code(s): I27.20 - PULMONARY HYPERTENSION, UNSPECIFIED Status: Chronic (4) Yeast pharyngitis Code(s): B37.89 - OTHER SITES OF CANDIDIASIS Status: Resolved (5) Diabetes type 2, controlled Code(s): E11.9 - TYPE 2 DIABETES MELLITUS WITHOUT COMPLICATIONS Status: Chronic Qualifiers: Diabetes mellitus complication status: without complication Diabetes mellitus termite treater insulin use: without skilled nursing use Qualified Code(s): E11.9 - Type 2 diabetes mellitus without complications (6) Severe tricuspid regurgitation Code(s): I07.1 - RHEUMATIC TRICUSPID INSUFFICIENCY Status: Chronic (7) Acute on chronic diastolic (congestive) heart failure Code(s): I50.33 - ACUTE ON CHRONIC DIASTOLIC (CONGESTIVE) HEART FAILURE Status : Acute (8) Hypertension Code(s): I10 - ESSENTIAL (PRIMARY) HYPERTENSION Status: Chronic Qualifiers: Hypertension type: essential hypertension Qualified Code(s): I10 - Essential (primary) hypertension (9) Hypothyroidism Code(s): E03.9 - HYPOTHYROIDISM, UNSPECIFIED Status: Chronic Qualifiers: Hypothyroidism type: acquired Qualified Code(s): E03.9 - Hypothyroidism, unspecified (10) ALICIA (acute kidney injury) Code(s): N17.9 - ACUTE KIDNEY FAILURE, UNSPECIFIED Status: Resolved - Plan cont current plan of care, continue antibiotics, PT/OT, respiratory therapy * .
--- NOTE | 2017-06-19 15:16 | PRG ---
DATE OF SERVICE: 06/19/2017 SERVICE: Pulmonary Medicine. INTERVAL HISTORY: The patient is doing quite well from a respiratory standpoint. When she is on mec hanical ventilation, she is doing really well. At any time, we put her on spontaneous breathing tria l, she has a difficult time breathing. Essentially, I do not think she is going to make it through t his thing without having a tracheostomy. She has been mechanically ventilated for the better part of 12 days and is not making the kind of progress that we needed her to. We can extubate her to BiPAP to see how she does and we can consider simply transitioning or discussing comfort care only versus t racheostomy placement. I will discuss this with the family once I see them in 1-2 days. In the mean time, I do think it is reasonable to give her 1 or 2 additional days to see if she makes any signific ant headway. My fear is that her weakness is preventing extubation at this point. PHYSICAL EXAMINATION: VITAL SIGNS: Afebrile, pulse 78 with T-max 100.4. Blood pressure 118/66, respirations 19, saturatio n 94% on room air. GENERAL: The patient is awake and alert, in no apparent distress. LUNGS: Excellent air entry. There is a prolonged expiratory phase with expiratory wheezing. No electric locomotive crane operator ckles or rhonchi are otherwise appreciated. HEART: Normal rate and regular. ABDOMEN: Soft, nontender, nondistended. Bowel sounds are positive. MUSCULOSKELETAL: No cyanosis or clubbing. There is no pitting in the bilateral lower extremities. NEUROLOGIC: Grossly nonfocal. LABORATORY DATA: Sodium is roughly stable at 146, bicarbonate 36 and up trending. Basic metabolic p rofile is otherwise unremarkable. Calcium 10.5. Magnesium 1.5. Sputum is growing Naomie albicans. Repeat blood cultures are negative to date at 48 hours. ASSESSMENT: 1. Acute hypoxic respiratory failure, stable. 2. Chronic obstructive pulmonary disease with acute exacerbation, slow to clear. 3. Chronic hypercapnic respiratory failure. 4. Pulmonary hypertension, severe. 5. Systemic inflammatory response syndrome, stable. PLAN: I will repeat laboratories tomorrow morning. We will do a spontaneous breathing trial today a nd see how she tolerates it. If she meets criteria, extubation and BiPAP will be considered. At tavo e point, we are going to either have to transition over to tracheostomy, withdrawal from care, or jus t make an attempt at extubating her. I will continue to follow while the patient remains in this loc ation. CRITICAL CARE TIME: 30 minutes.
[2017-06-20] MEDS: Acetaminophen 325 MG TAB PO PRN (02:42)
[2017-06-20 05:08] LABS: #Lymphocytes 1.2 thou/uL (1.20-3.40); #Monocytes 0.7 thou/uL (0.11-0.59); #Neutrophils 10.6 thou/uL (1.40-6.50); %Basophils 0.1 % (0.0-1.0); %Eosinophils 0.3 % (0.0-10.0); %Lymphocytes 9.4 % (21.0-51.0); %Monocytes 5.8 % (0.0-10.0); %Neutrophils 84.5 % (42.0-75.0); Hemoglobin 14.6 g/dL (12.0-16.0); Mean Corpuscular HGB CONC 30.5 g/dL (32.0-36.0); Mean Platelet Volume 12.4 fL (7.4-10.4); Platelet Count 108 thou/uL (130-400); RBC Distribution Width 13.1 % (11.5-14.5); Red Blood Cell (RBC) Count 4.71 mill/uL (4.20-5.40); White Blood Cell (WBC) Count 12.6 thou/uL (4.8-10.8)
[2017-06-20 05:20] LABS: Anion Gap 9 mmol/L (10-20); BUN (Urea Nitrogen) 41 mg/dL (9.8-20.1); Calc. Creatinine Clearance 138 mL/min (70-130); Calcium 10.5 mg/dL (7.8-10.44); Carbon Dioxide 36 mmol/L (22-29); Chloride 103 mmol/L (98-107); Estimated GFR-MDRD Greater than 90; Glucose 106 mg/dL (70-105); Magnesium 1.9 mg/dL (1.6-2.6); Potassium 3.9 mmol/L (3.5-5.1); Sodium 144 mmol/L (136-145)
[2017-06-20] MEDS: Magnesium Oxide 400 MG TAB PO PRN ×2 (05:36→09:43)
[2017-06-20] MEDS: Levothyroxine Sodium 75 MCG TAB PO SCH (06:07)
[2017-06-20 07:04] LABS: Actual Bicarbonate (HCO3a) 36.2 mEq/L (22-26); Base Excess (BEa) 9.6 mEq/L (0 (+/-) 2.5); CO2 Tension 56.5 mmHg (35.0-45.0); Calcium, Ionized 1.5 mmol/L (1.12-1.30); Hematocrit-ABG 47.4 % (36.0-47.0); Hemoglobin (Hb) 14.8 g/dL (12.0-16.0); pH, Arterial 7.43 (7.35-7.45)
[2017-06-20 07:08] LABS: O2 Tension (PaO2) 48.9 mmHg (80.0-100.0)
[2017-06-20 07:09] LABS: ALV-art Gradient 72.445 (0-20); Peep/CPAP 3.5 cmH2O; Puncture Site RRA
[2017-06-20] MEDS: Fluconazole In NaCl,Iso-Osm 100 MG, Admixture Fee 1 EACH in Premix Bag 1 BAG IVPB SCH (09:43)
[2017-06-20] MEDS: Sildenafil Citrate 20 MG TAB PER TUBE SCH ×3 (09:44→21:00)
--- NOTE | 2017-06-20 10:33 | RAD ---
PORTABLE CHEST: HISTORY: Intubation. Dyspnea. COMPARISON: 06/16/2017 FINDINGS: Bibasilar opacification obscures the hemidiaphragms. Cardiomegaly. Mild vascular congestion. ET tube, NG tube, and central line are noted. IMPRESSION: 1. Bibasilar opacity, consistent with atelectasis and/or consolidation and associated effusions. 2. Mild vascular engorgement. POS: [facility]
--- NOTE | 2017-06-20 14:49 | PDOC.PN ---
- Subjective Encounter Start Date: 06/20/17 Encounter Start Time: 08:45 -: non-verbal Pt seen and exmained, on SIMV. CPAP'd for abortu 2 hours last evening, but tired out, placed back on IMV. No f/C, no N/V/D/C, denies pain. No acute events 10 point ROS performed and neg for all systems except as per HPI - Objective Resuscitation Status: Resuscitation Status FULL:Full Resuscitation MAR Reviewed: Yes Vital Signs & Weight: Vital Signs (12 hours) Temp Pulse Resp BP 06/20/17 14:13 86 107/61 06/20/17 14:00 21 H 06/20/17 12:00 98.5 F 15 06/20/17 11:51 76 100/57 L 06/20/17 10:00 16 06/20/17 08:00 99 F 84 13 06/20/17 06:58 81 111/67 06/20/17 06:00 15 06/20/17 04:00 98.8 F 17 Weight Admit Weight 168 lb Weight 176 lb 9.444 oz Most Recent Monitor Data Heart Rate from ECG 78 NIBP 107/61 NIBP BP-Mean 81 Respiration from ECG 19 SpO2 96 I&O: 06/19/17 06/20/17 06/21/17 06:59 06:59 06:59 Intake Total 2143.1 2014.7 81.6 Output Total 1153 1142 380 Balance 990.1 872.7 -298.4 Result Diagrams: 06/20/17 04:06 06/20/17 04:06 Additional Labs: Accuchecks 06/20/17 06/20/17 06/19/17 09:43 04:07 21:15 POC Glucose 87 90 120 H 06/19/17 18:11 POC Glucose 129 H Radiology Reviewed by me: Yes EKG Reviewed by me: Yes Phys Exam - Physical Examination Constitutional: NAD HEENT: PERRLA, moist MMs, sclera anicteric, oral pharynx no lesions orally intubated and orogastric tube in place Neck: no nodes, no JVD, supple, full ROM Respiratory: no rales, no rhonchi, clear to auscultation bilateral Cardiovascular: RRR, no significant murmur, no rub Gastrointestinal: soft, non-tender, no distention, positive bowel sounds Musculoskeletal: pulses present, edema present Neurological: non-focal, normal sensation, moves all 4 limbs Lymphatic: no nodes Skin: no rash, normal turgor, cap refill <2 seconds Dx/Plan (1) Acute on chronic respiratory failure with hypoxia and hypercapnia Code(s): J96.21 - ACUTE AND CHRONIC RESPIRATORY FAILURE WITH HYPOXIA; J96.22 - ACUTE AND CHRONIC RESPIRATORY FAILURE WITH HYPERCAPNIA Status: Acute Comment : weaning off vent per pulm. Will be slow i suspect (2) COPD exacerbation Code(s): J44.1 - CHRONIC OBSTRUCTIVE PULMONARY DISEASE W (ACUTE) EXACERBATION Status: Acute Comment: improved lung sounds. weaning off vent. continue nebs , steroids (3) Pulmonary hypertension Code(s): I27.20 - PULMONARY HYPERTENSION, UNSPECIFIED Status: Chronic (4) Yeast pharyngitis Code(s): B37.89 - OTHER SITES OF CANDIDIASIS Status: Resolved (5) Diabetes type 2, controlled Code(s): E11.9 - TYPE 2 DIABETES MELLITUS WITHOUT COMPLICATIONS Status: Chronic Qualifiers: Diabetes mellitus complication status: without complication Diabetes mellitus half-way insulin use: without occupational health coordinator use Qualified Code(s): E11.9 - Type 2 diabetes mellitus without complications (6) Severe tricuspid regurgitation Code(s): I07.1 - RHEUMATIC TRICUSPID INSUFFICIENCY Status: Chronic (7) Acute on chronic diastolic (congestive) heart failure Code(s): I50.33 - ACUTE ON CHRONIC DIASTOLIC (CONGESTIVE) HEART FAILURE Status : Acute (8) Hypertension Code(s): I10 - ESSENTIAL (PRIMARY) HYPERTENSION Status: Chronic Qualifiers: Hypertension type: essential hypertension Qualified Code(s): I10 - Essential (primary) hypertension (9) Hypothyroidism Code(s): E03.9 - HYPOTHYROIDISM, UNSPECIFIED Status: Chronic Qualifiers: Hypothyroidism type: acquired Qualified Code(s): E03.9 - Hypothyroidism, unspecified (10) ALICIA (acute kidney injury) Code(s): N17.9 - ACUTE KIDNEY FAILURE, UNSPECIFIED Status: Resolved - Plan * .
--- NOTE | 2017-06-20 16:23 | PRG ---
DATE OF SERVICE: 06/20/2017 SERVICE: Pulmonary Medicine. INTERVAL HISTORY: The patient is doing really well from a respiratory standpoint. She is breathing much more comfortably and her mentation is beautiful today. She is returning to her usual state of h ealth. She has no difficulties with chest discomfort or overnight events. She is tolerating tube fe eds. PHYSICAL EXAMINATION: VITAL SIGNS: Afebrile with a T-max of 99.0. Pulse 91, blood pressure 92/50, respirations 20, satura tion 96% on 27% FIO2 and a PEEP of 3.5. GENERAL: The patient is awake and alert, in no apparent distress. LUNGS: Excellent air entry. Today, there is minimal prolongation of the expiratory phase. No wheez ing is appreciated. HEART: Normal rate, regular. ABDOMEN: Soft, nontender, nondistended. Bowel sounds are positive. MUSCULOSKELETAL: No cyanosis or clubbing. No pitting in the bilateral lower extremities. NEUROLOGIC: Grossly nonfocal. LABORATORY DATA: WBC 12.6 and downtrending, hemoglobin 14.6, platelets 108,000 and rebounding. INR 1.0. A pH 7.43, pCO2 of 56, pO2 of 49 on 27% FiO2 at that time. This corresponded to a saturation o f 88%. Creatinine 0.54, BUN is improving to 41, bicarbonate 36 and stable. Basic metabolic profile is otherwise unremarkable. Calcium 10.5. Magnesium is normal. Urinalysis is unremarkable. Sputum is growing Naomie albicans. Blood cultures x2 and respiratory cultures negative to date. Influenza is also negative. IMAGING: Chest x-ray demonstrates endotracheal tube is in excellent position. An enteric catheter c ourses below the level of the diaphragm. Right-sided IJ terminates in a very good spot. There is pr obably a right-sided pleural effusion, which may be layering. There is a left basilar infiltrate/ate lectasis. Other than that, there has been no significant change. Minimal vascular engorgement is pr esent. ASSESSMENT: 1. Acute hypoxic respiratory failure, improving. 2. Chronic obstructive pulmonary disease with acute exacerbation, slow to clear. 3. Chronic hypercapnic respiratory failure. 4. Pulmonary hypertension, severe. 5. Systemic inflammatory response syndrome, once again improving. PLAN: We will do another spontaneous breathing trial. Yesterday, she failed after about 2 hours. T pedro, she is doing much better. If she meets criteria at the end of 1 hour, extubation will be consi dered, but there is a good chance that she may need noninvasive ventilation when this occurs. We edgardo l watch her ins and outs and try to keep her roughly even to slightly negative over the next 24-48 ho urs. CRITICAL CARE TIME: 30 minutes.
[2017-06-21 04:27] LABS: #Monocytes 0.5 thou/uL (0.11-0.59); #Neutrophils 8.9 thou/uL (1.40-6.50); %Basophils 0.2 % (0.0-1.0); %Eosinophils 0.3 % (0.0-10.0); %Lymphocytes 9.4 % (21.0-51.0); %Monocytes 4.7 % (0.0-10.0); %Neutrophils 85.3 % (42.0-75.0); Mean Corpuscular HGB CONC 30.7 g/dL (32.0-36.0); Mean Corpuscular Hemoglobin 31.2 pg (27.0-31.0); Mean Platelet Volume 11.6 fL (7.4-10.4); Platelet Count 111 thou/uL (130-400); RBC Distribution Width 12.9 % (11.5-14.5); White Blood Cell (WBC) Count 10.4 thou/uL (4.8-10.8)
[2017-06-21 04:46] LABS: Anion Gap 9 mmol/L (10-20); BUN (Urea Nitrogen) 39 mg/dL (9.8-20.1); Calc. Creatinine Clearance 151 mL/min (70-130); Calcium 10.3 mg/dL (7.8-10.44); Carbon Dioxide 36 mmol/L (22-29); Chloride 102 mmol/L (98-107); Estimated GFR-MDRD Greater than 90; Glucose 107 mg/dL (70-105); Potassium 3.7 mmol/L (3.5-5.1); Sodium 143 mmol/L (136-145)
[2017-06-21] MEDS: Levothyroxine Sodium 75 MCG TAB PO SCH (05:18)
[2017-06-21] MEDS: Sildenafil Citrate 20 MG TAB PER TUBE SCH ×3 (08:45→22:28)
[2017-06-21] MEDS: Fluconazole In NaCl,Iso-Osm 100 MG, Admixture Fee 1 EACH in Premix Bag 1 BAG IVPB SCH (08:50)
--- NOTE | 2017-06-21 13:04 | PDOC.PN ---
- Subjective Encounter Start Date: 06/21/17 Encounter Start Time: 09:50 Pt extubated last evening, did well. asking when she can go home. Case discussed iwth Pulm, to downgrade to IMCU today. no f/c, some cough, minimal sputum, no N/V/D/C, no CP. 10 point ROS performed and neg for all systems except as above - Objective Resuscitation Status: Resuscitation Status FULL:Full Resuscitation MAR Reviewed: Yes Vital Signs & Weight: Vital Signs (12 hours) Temp Pulse Resp Pulse Ox 06/21/17 12:00 98.8 F 06/21/17 11:10 77 22 H 91 L 06/21/17 07:29 97.9 F 91 17 96 06/21/17 06:58 99 06/21/17 06:55 74 19 99 06/21/17 04:00 98.1 F 06/21/17 03:43 99 06/21/17 03:41 80 23 H 99 Weight Admit Weight 168 lb Weight 179 lb 0.246 oz Most Recent Monitor Data Heart Rate from ECG 90 NIBP 108/66 NIBP BP-Mean 79 Respiration from ECG 32 SpO2 95 I&O: 06/20/17 06/21/17 06/22/17 06:59 06:59 06:59 Intake Total 2014.7 1185.6 Output Total 1142 965 100 Balance 872.7 220.6 -100 Result Diagrams: 06/21/17 04:10 06/21/17 04:10 Additional Labs: Accuchecks 06/21/17 06/20/17 06/20/17 10:58 21:06 15:20 POC Glucose 108 108 140 H Radiology Reviewed by me: Yes EKG Reviewed by me: Yes Phys Exam - Physical Examination Constitutional: NAD HEENT: PERRLA, moist MMs, sclera anicteric, oral pharynx no lesions Neck: no nodes, no JVD, supple, full ROM Respiratory: no wheezing, no rales, no rhonchi, clear to auscultation bilateral Cardiovascular: RRR, no significant murmur, no rub Gastrointestinal: soft, non-tender, no distention, positive bowel sounds Musculoskeletal: pulses present, edema present Neurological: non-focal, normal sensation, moves all 4 limbs Lymphatic: no nodes Psychiatric: normal affect, A&O x 3 Skin: no rash, normal turgor, cap refill <2 seconds Dx/Plan (1) Acute on chronic respiratory failure with hypoxia and hypercapnia Code(s): J96.21 - ACUTE AND CHRONIC RESPIRATORY FAILURE WITH HYPOXIA; J96.22 - ACUTE AND CHRONIC RESPIRATORY FAILURE WITH HYPERCAPNIA Status: Resolved Comment: extubated 06/20. doing well (2) COPD exacerbation Code(s): J44.1 - CHRONIC OBSTRUCTIVE PULMONARY DISEASE W (ACUTE) EXACERBATION Status: Acute Comment: improved lung sounds. weaned off vent. continue nebs , steroids (3) Pulmonary hypertension Code(s): I27.20 - PULMONARY HYPERTENSION, UNSPECIFIED Status: Chronic (4) Yeast pharyngitis Code(s): B37.89 - OTHER SITES OF CANDIDIASIS Status: Resolved (5) Diabetes type 2, controlled Code(s): E11.9 - TYPE 2 DIABETES MELLITUS WITHOUT COMPLICATIONS Status: Chronic Qualifiers: Diabetes mellitus complication status: without complication Diabetes mellitus shelter insulin use: without shelter use Qualified Code(s): E11.9 - Type 2 diabetes mellitus without complications (6) Severe tricuspid regurgitation Code(s): I07.1 - RHEUMATIC TRICUSPID INSUFFICIENCY Status: Chronic (7) Acute on chronic diastolic (congestive) heart failure Code(s): I50.33 - ACUTE ON CHRONIC DIASTOLIC (CONGESTIVE) HEART FAILURE Status : Resolved (8) Hypertension Code(s): I10 - ESSENTIAL (PRIMARY) HYPERTENSION Status: Chronic Qualifiers: Hypertension type: essential hypertension Qualified Code(s): I10 - Essential (primary) hypertension (9) Hypothyroidism Code(s): E03.9 - HYPOTHYROIDISM, UNSPECIFIED Status: Chronic Qualifiers: Hypothyroidism type: acquired Qualified Code(s): E03.9 - Hypothyroidism, unspecified (10) ALICIA (acute kidney injury) Code(s): N17.9 - ACUTE KIDNEY FAILURE, UNSPECIFIED Status: Resolved - Plan cont current plan of care, PT/OT, respiratory therapy, out of bed/ambulate * .
[2017-06-21 14:35] VITALS: BMI 28.8
[2017-06-22 05:00] LABS: #Lymphocytes 0.9 thou/uL (1.20-3.40); #Monocytes 0.3 thou/uL (0.11-0.59); #Neutrophils 8.2 thou/uL (1.40-6.50); %Basophils 0.5 % (0.0-1.0); %Eosinophils 0.1 % (0.0-10.0); %Lymphocytes 9.8 % (21.0-51.0); %Monocytes 3.6 % (0.0-10.0); %Neutrophils 86.1 % (42.0-75.0); Hemoglobin 15.2 g/dL (12.0-16.0); Mean Corpuscular HGB CONC 30.9 g/dL (32.0-36.0); Mean Corpuscular Hemoglobin 31.2 pg (27.0-31.0); Mean Platelet Volume 11.8 fL (7.4-10.4); Platelet Count 121 thou/uL (130-400); RBC Distribution Width 12.8 % (11.5-14.5); Red Blood Cell (RBC) Count 4.87 mill/uL (4.20-5.40); White Blood Cell (WBC) Count 9.5 thou/uL (4.8-10.8)
[2017-06-22 05:18] LABS: Anion Gap 11 mmol/L (10-20); BUN (Urea Nitrogen) 36 mg/dL (9.8-20.1); Calc. Creatinine Clearance 147 mL/min (70-130); Calcium 10.1 mg/dL (7.8-10.44); Carbon Dioxide 32 mmol/L (22-29); Chloride 102 mmol/L (98-107); Estimated GFR-MDRD Greater than 90; Glucose 100 mg/dL (70-105); Potassium 3.9 mmol/L (3.5-5.1); Sodium 141 mmol/L (136-145)
[2017-06-22] MEDS: Levothyroxine Sodium 75 MCG TAB PO SCH (05:49)
[2017-06-22] MEDS: Fluconazole In NaCl,Iso-Osm 100 MG, Admixture Fee 1 EACH in Premix Bag 1 BAG IVPB SCH (10:27)
[2017-06-22] MEDS: Sildenafil Citrate 20 MG TAB PER TUBE SCH ×2 (10:27→17:12)
--- NOTE | 2017-06-22 14:57 | PDOC.PN ---
- Subjective Encounter Start Date: 06/22/17 Encounter Start Time: 11:15 doing well, on regular food. no f/C, no n/v/D/c, no CP or sOb, no cough or sputum. Wanting to get home, has not walked, will ask PT to eval 10 point ROS performed and neg for all systems except as above. - Objective Resuscitation Status: Resuscitation Status FULL:Full Resuscitation MAR Reviewed: Yes Vital Signs & Weight: Vital Signs (12 hours) Temp Pulse Pulse Pulse Resp BP BP 06/22/17 12:09 94 99 115/61 118/65 06/22/17 11:00 97.5 F L 86 20 06/22/17 08:00 98.1 F 77 18 06/22/17 07:55 06/22/17 07:53 87 18 06/22/17 07:14 98.1 F 77 18 06/22/17 04:00 97.8 F 80 26 H BP BP Pulse Ox Pulse Ox 06/22/17 12:09 100 06/22/17 11:00 115/70 100 06/22/17 08:00 100 06/22/17 07:55 99 06/22/17 07:53 99 06/22/17 07:14 114/68 100 06/22/17 04:00 117/71 100 Weight Admit Weight 168 lb Weight 179 lb 0.246 oz Most Recent Monitor Data Heart Rate from ECG 90 NIBP 108/66 NIBP BP-Mean 79 Respiration from ECG 32 SpO2 95 I&O: 06/21/17 06/22/17 06/23/17 06:59 06:59 06:59 Intake Total 1185.6 1090 Output Total 965 625 Balance 220.6 465 Result Diagrams: 06/22/17 04:20 06/22/17 04:20 Additional Labs: Accuchecks 06/22/17 06/22/17 06/21/17 10:44 05:44 22:57 POC Glucose 126 H 71 111 H 06/21/17 06/21/17 18:03 17:28 POC Glucose 166 H 355 H Radiology Reviewed by me: Yes Phys Exam - Physical Examination Constitutional: NAD HEENT: PERRLA, moist MMs, sclera anicteric, oral pharynx no lesions Neck: no nodes, no JVD, supple, full ROM Respiratory: no wheezing, no rales, no rhonchi, clear to auscultation bilateral Cardiovascular: RRR, no significant murmur, no rub Gastrointestinal: soft, non-tender, no distention, positive bowel sounds Musculoskeletal: pulses present, edema present Neurological: non-focal, normal sensation, moves all 4 limbs Lymphatic: no nodes Psychiatric: normal affect, A&O x 3 Skin: no rash, normal turgor, cap refill <2 seconds Dx/Plan (1) Acute on chronic respiratory failure with hypoxia and hypercapnia Code(s): J96.21 - ACUTE AND CHRONIC RESPIRATORY FAILURE WITH HYPOXIA; J96.22 - ACUTE AND CHRONIC RESPIRATORY FAILURE WITH HYPERCAPNIA Status: Resolved Comment: extubated 06/20. doing well (2) COPD exacerbation Code(s): J44.1 - CHRONIC OBSTRUCTIVE PULMONARY DISEASE W (ACUTE) EXACERBATION Status: Acute Comment: improved lung sounds. weaned off vent. continue nebs , steroids (3) Pulmonary hypertension Code(s): I27.20 - PULMONARY HYPERTENSION, UNSPECIFIED Status: Chronic (4) Yeast pharyngitis Code(s): B37.89 - OTHER SITES OF CANDIDIASIS Status: Resolved (5) Diabetes type 2, controlled Code(s): E11.9 - TYPE 2 DIABETES MELLITUS WITHOUT COMPLICATIONS Status: Chronic Qualifiers: Diabetes mellitus complication status: without complication Diabetes mellitus fpc insulin use: without fpc use Qualified Code(s): E11.9 - Type 2 diabetes mellitus without complications (6) Severe tricuspid regurgitation Code(s): I07.1 - RHEUMATIC TRICUSPID INSUFFICIENCY Status: Chronic (7) Acute on chronic diastolic (congestive) heart failure Code(s): I50.33 - ACUTE ON CHRONIC DIASTOLIC (CONGESTIVE) HEART FAILURE Status : Resolved (8) Hypertension Code(s): I10 - ESSENTIAL (PRIMARY) HYPERTENSION Status: Chronic Qualifiers: Hypertension type: essential hypertension Qualified Code(s): I10 - Essential (primary) hypertension (9) Hypothyroidism Code(s): E03.9 - HYPOTHYROIDISM, UNSPECIFIED Status: Chronic Qualifiers: Hypothyroidism type: acquired Qualified Code(s): E03.9 - Hypothyroidism, unspecified (10) ALICIA (acute kidney injury) Code(s): N17.9 - ACUTE KIDNEY FAILURE, UNSPECIFIED Status: Resolved - Plan cont current plan of care, continue antibiotics, PT/OT, respiratory therapy, out of bed/ambulate * .
--- NOTE | 2017-06-22 17:34 | PRG ---
DATE OF SERVICE: 06/22/2017 SERVICE: Pulmonary Medicine. INTERVAL HISTORY: The patient is doing really excellent from a cardiovascular and respiratory standp oint. Her strength has actually improved quite dramatically. She does not have any complaints of fe vers, chills, nausea or vomiting. There were no overnight events. PHYSICAL EXAMINATION: VITAL SIGNS: Afebrile, pulse 77, blood pressure 112/65, respirations 18, saturation 96% on 2 liters nasal cannula. GENERAL: The patient is awake and alert. No apparent distress. LUNGS: Improved air entry with prolonged expiratory phase. I do not appreciate wheezing, rhonchi, o r crackles today. HEART: Normal rate, regular. ABDOMEN: Soft, nontender, nondistended, bowel sounds positive. MUSCULOSKELETAL: No cyanosis or clubbing. There is no pitting in the bilateral lower extremities. NEUROLOGIC: Grossly nonfocal. LABORATORY DATA: WBC 9.5, hemoglobin 15.2, platelets 121,000 and improving. Basic metabolic profile is essentially unremarkable/returning to normal. Blood sugars remain under excellent control. Bloo d cultures x2, respiratory virus cultures negative. Influenza A and B are both negative. ASSESSMENT: 1. Acute on chronic hypoxic respiratory failure. 2. Chronic obstructive pulmonary disease with acute exacerbation. 3. Chronic hypercapnic respiratory failure. 4. Pulmonary hypertension, severe. 5. Obstructive sleep apnea, suspected. PLAN: She actually regained her strength little faster than I expected. I think that we can transit ion her to the medical unit, we will aggressively mobilize her. If she does not demonstrate good str ength in the next 24-48 hours, we may need to consider transitioning her into a rehabilitation center if she qualifies. Physical Therapy will continue to evaluate her.
--- NOTE | 2017-06-22 17:55 | PRG ---
DATE OF SERVICE: 06/21/2017 SERVICE: Pulmonary Medicine. INTERVAL HISTORY: The patient was extubated yesterday. I am impressed to say that she did really qu ite well with this. This morning, she does not have any complaints of difficulty with breathing. Ot herwise, she is returning to her usual state of health. She denies any current fevers, chills, nause a, vomiting or chest discomfort. PHYSICAL EXAMINATION: VITAL SIGNS: Afebrile, pulse 77, blood pressure 109/65, respirations 22, saturation 91% on 2 liters nasal cannula. GENERAL: Patient is awake, alert, no apparent distress. LUNGS: Good air entry. There is a prolonged expiratory phase, but no wheezing, rhonchi, or crackles appreciated. HEART: Normal rate, regular. ABDOMEN: Soft, nontender, nondistended. Bowel sounds positive. MUSCULOSKELETAL: No cyanosis or clubbing. No pitting in the bilateral lower extremities. NEUROLOGIC: Grossly nonfocal. LABORATORY: WBC 10.4, hemoglobin 15.0, and platelets 111,000. Sodium 143, creatinine 0.54, bicarbon ate 36 and stable. Basic metabolic profile is otherwise unremarkable. ASSESSMENT: 1. Acute on chronic hypoxic respiratory failure. 2. Chronic obstructive pulmonary disease with acute exacerbation. 3. Chronic hypercapnic respiratory failure. 4. Pulmonary hypertension, severe. 5. Obstructive sleep apnea, suspected. PLAN: We will transition the patient out of the ICU to the IMCU. She will remain there until she gallegos s better tone and increasing strength. In the meantime, we will continue antibiotics, nebulize medic ations, and steroids. She has returned to euvolemia. As such, back off on her Lasix. Pulmonary or Critical Care will continue to follow.
--- NOTE | 2017-06-22 18:54 | PRG ---
DATE OF SERVICE: 06/21/2017 SUBJECTIVE: Ms. Scott has been extubated. She had significant issues with recent PFTs. I have di scussed the case with Dr. Jake Granger. No current complaints. OBJECTIVE: VITAL SIGNS: Blood pressure 112/65, pulse 81, temperature 97.1. LUNGS: Clear to auscultation. CARDIAC: Regular rate and rhythm. ABDOMEN: Soft, nontender, nondistended. EXTREMITIES: No edema. IMPRESSION: Right-sided failure. RECOMMENDATIONS: Symptoms likely multifactorial. She likely has advanced COPD. I have discussed th e case with her family. She smokes more than 2 packs per day. She also likely has obstructive sleep apnea, but unfortunately is limited financially for testing. From a CV standpoint, I have no furthe r recommendations. Please reconsult if needed.
[2017-06-23] MEDS: Levothyroxine Sodium 75 MCG TAB PO SCH (06:30)
[2017-06-23] MEDS: Fluconazole In NaCl,Iso-Osm 100 MG, Admixture Fee 1 EACH in Premix Bag 1 BAG IVPB SCH (09:51)
--- NOTE | 2017-06-23 13:57 | PDOC.PN ---
- Subjective Encounter Start Date: 06/23/17 Encounter Start Time: 06:00 Pt sletp wel, breathing better. NO f/C, no N/V/D/C, no cough, no sputum. PT/OT eval ysterday, prelim recs were SNF or Rehab.. can transfer to floor. 10 point ROS performed and neg for all systems except as per hPI. Pt wants to go home - Objective Resuscitation Status: Resuscitation Status FULL:Full Resuscitation MAR Reviewed: Yes Vital Signs & Weight: Vital Signs (12 hours) Temp Pulse Resp BP BP Pulse Ox 06/23/17 11:51 84 18 99 06/23/17 11:04 80 20 117/70 98 06/23/17 08:50 99 06/23/17 08:49 87 22 H 99 06/23/17 08:00 97.6 F 87 22 H 99 06/23/17 07:43 97.6 F 76 16 119/77 99 06/23/17 04:07 98.0 F 79 18 113/69 100 06/23/17 02:19 75 16 100 Weight Admit Weight 168 lb Weight 179 lb 0.246 oz Most Recent Monitor Data Heart Rate from ECG 90 NIBP 108/66 NIBP BP-Mean 79 Respiration from ECG 32 SpO2 95 I&O: 06/22/17 06/23/17 06/24/17 06:59 06:59 06:59 Intake Total 1090 1560 240 Output Total 625 550 Balance 465 1010 240 Result Diagrams: 06/22/17 04:20 06/22/17 04:20 Additional Labs: Accuchecks 06/23/17 06/23/17 06/22/17 10:20 06:30 20:24 POC Glucose 103 81 174 H 06/22/17 16:59 POC Glucose 168 H Radiology Reviewed by me: Yes EKG Reviewed by me: Yes Phys Exam - Physical Examination Constitutional: NAD HEENT: PERRLA, moist MMs, sclera anicteric, oral pharynx no lesions Neck: no nodes, no JVD, supple, full ROM Respiratory: no rales, no rhonchi, wheezing present Cardiovascular: RRR, no significant murmur, no rub Gastrointestinal: soft, non-tender, no distention, positive bowel sounds Musculoskeletal: pulses present, edema present Neurological: non-focal, normal sensation, moves all 4 limbs Lymphatic: no nodes Psychiatric: normal affect, A&O x 3 Skin: no rash, normal turgor, cap refill <2 seconds Dx/Plan (1) Acute on chronic respiratory failure with hypoxia and hypercapnia Code(s): J96.21 - ACUTE AND CHRONIC RESPIRATORY FAILURE WITH HYPOXIA; J96.22 - ACUTE AND CHRONIC RESPIRATORY FAILURE WITH HYPERCAPNIA Status: Resolved Comment: extubated 06/20. doing well, weaning O2. suprising how fast she is improving (2) COPD exacerbation Code(s): J44.1 - CHRONIC OBSTRUCTIVE PULMONARY DISEASE W (ACUTE) EXACERBATION Status: Acute Comment: improved lung sounds. weaned off vent. continue nebs , steroids. Some wheezing on exam, watch (3) Pulmonary hypertension Code(s): I27.20 - PULMONARY HYPERTENSION, UNSPECIFIED Status: Chronic (4) Diabetes type 2, controlled Code(s): E11.9 - TYPE 2 DIABETES MELLITUS WITHOUT COMPLICATIONS Status: Chronic Qualifiers: Diabetes mellitus complication status: without complication Diabetes mellitus medical terminologist insulin use: without fpc use Qualified Code(s): E11.9 - Type 2 diabetes mellitus without complications (5) Severe tricuspid regurgitation Code(s): I07.1 - RHEUMATIC TRICUSPID INSUFFICIENCY Status: Chronic (6) Acute on chronic diastolic (congestive) heart failure Code(s): I50.33 - ACUTE ON CHRONIC DIASTOLIC (CONGESTIVE) HEART FAILURE Status : Resolved (7) Hypertension Code(s): I10 - ESSENTIAL (PRIMARY) HYPERTENSION Status: Chronic Qualifiers: Hypertension type: essential hypertension Qualified Code(s): I10 - Essential (primary) hypertension (8) Hypothyroidism Code(s): E03.9 - HYPOTHYROIDISM, UNSPECIFIED Status: Chronic Qualifiers: Hypothyroidism type: acquired Qualified Code(s): E03.9 - Hypothyroidism, unspecified (9) ALICIA (acute kidney injury) Code(s): N17.9 - ACUTE KIDNEY FAILURE, UNSPECIFIED Status: Resolved (10) Yeast pharyngitis Code(s): B37.89 - OTHER SITES OF CANDIDIASIS Status: Resolved - Plan cont current plan of care, continue antibiotics, PT/OT, respiratory therapy, out of bed/ambulate * .
[2017-06-23] MEDS ORDERED: Furosemide 40 MG/4 ML VIAL SLOW IVP SCH (14:00)
--- NOTE | 2017-06-23 14:10 | PRG ---
DATE OF SERVICE: 06/23/2017 SERVICE: Pulmonary Medicine INTERVAL HISTORY: The patient is doing fine from a respiratory standpoint. She is breathing comfort ably on room air and has no specific complaints of fevers, chills, nausea or vomiting. She has sligh tly increasing lower extremity edema. Outside of this, there has been no interval change to her cond ition. PHYSICAL EXAMINATION: VITAL SIGNS: Afebrile, pulse 80, blood pressure 117/70, respirations 20, saturation 98% on 1 liter n mary anne cannula. GENERAL: The patient is awake, alert, no apparent distress. LUNGS: Excellent air entry. There is a slightly prolonged expiratory phase, but I do not appreciate wheezing, rhonchi or crackles. HEART: Normal rate, regular. ABDOMEN: Soft, nontender, nondistended. Bowel sounds positive. MUSCULOSKELETAL: No cyanosis or clubbing. There is 1+ pitting in the bilateral lower extremities. NEUROLOGIC: Grossly nonfocal. LABORATORY DATA: Blood sugars ranged 71 to 174. ASSESSMENT: 1. Acute on chronic hypoxic respiratory failure. 2. Chronic obstructive pulmonary disease with acute exacerbation. 3. Chronic hypercapnic respiratory failure. 4. Pulmonary hypertension, severe. 5. Obstructive sleep apnea, suspected. 6. Deconditioning secondary to ICU stay. PLAN: At this point, she is returning to euvolemia. She can be transitioned to the medical floor. I will give her a dose of Lasix today and start a p.o. medication on a daily basis. From my perspect dagoberto, she is approaching a place where she can be considered for discharge from the hospital. I would like her to follow up with me in clinic so that we can arrange for an outpatient polysomnogram and davida ramirez an attempt to getting her to a pulmonary hypertension center to be studied.
[2017-06-23] MEDS: Acetaminophen 325 MG TAB PO PRN (19:23)
[2017-06-24 04:54] LABS: Anion Gap 10 mmol/L (10-20); BUN (Urea Nitrogen) 29 mg/dL (9.8-20.1); Calc. Creatinine Clearance 133 mL/min (70-130); Calcium 9.8 mg/dL (7.8-10.44); Carbon Dioxide 37 mmol/L (22-29); Chloride 99 mmol/L (98-107); Estimated GFR-MDRD Greater than 90; Glucose 85 mg/dL (70-105); Magnesium 1.8 mg/dL (1.6-2.6); Potassium 3.6 mmol/L (3.5-5.1); Sodium 142 mmol/L (136-145)
[2017-06-24] MEDS: Levothyroxine Sodium 75 MCG TAB PO SCH (05:40)
[2017-06-24] MEDS: Furosemide 40 MG TAB PO SCH (07:33)
[2017-06-24] MEDS ORDERED: Magnesium 2 GM/NS 0.9% 100 ML 2 GM in Premix Bag 1 BAG IVPB SCH (16:00)
[2017-06-24] MEDS ORDERED: Furosemide 40 MG/4 ML VIAL SLOW IVP SCH (16:00)
--- NOTE | 2017-06-24 17:44 | PRG ---
DATE OF SERVICE: 06/24/2017 SERVICE: Pulmonary Medicine. INTERVAL HISTORY: The patient is doing really quite well from a respiratory standpoint. She denies any current fevers, chills, nausea or vomiting. Her breathing is comfortable. Her appetite has pick ed up. Lower extremity edema is a little bit better, though still present. PHYSICAL EXAMINATION: VITAL SIGNS: Afebrile, pulse 84, blood pressure 116/76, respirations 16, saturation 89% on 1 liter n mary anne cannula. GENERAL: Patient is awake, alert, in no apparent distress. LUNGS: Decreased air entry. There is a prolonged expiratory phase. Rhonchi are present, but clear with cough. I do not appreciate wheezing today. Dependent crackles are minimal. HEART: Normal rate, regular. ABDOMEN: Soft, nontender, nondistended. Bowel sounds positive. MUSCULOSKELETAL: No cyanosis or clubbing. There is 2+ pitting in the bilateral lower extremities. NEUROLOGIC: Grossly nonfocal. LABORATORY DATA: Basic metabolic profile and magnesium are unremarkable. Potassium 3.6. ASSESSMENT: 1. Acute on chronic hypoxic respiratory failure. 2. Chronic obstructive pulmonary disease with acute exacerbation. 3. Chronic hypercapnic respiratory failure. 4. Pulmonary hypertension, severe. 5. Obstructive sleep apnea, suspected. 6. Deconditioning secondary to ICU stay. PLAN: At this point, the patient is returning to her usual state of health, albeit slowly. She is g etting stronger on day by day basis. Magnesium and potassium will once again be replaced. The patie nt can be transitioned home once she demonstrates adequate strength. If she does not, options for pl acement will need to be investigated. I would like her to follow up with me in clinic in 2-4 weeks i n the outpatient setting, so we can arrange for her to undergo a polysomnogram.
--- NOTE | 2017-06-24 19:05 | PDOC.PN ---
- Subjective Encounter Start Date: 06/24/17 Encounter Start Time: 19:03 Subjective: Seen and examined no new complaint - Objective Resuscitation Status: Resuscitation Status FULL:Full Resuscitation Vital Signs & Weight: Vital Signs (12 hours) Temp Pulse Resp BP Pulse Ox 06/24/17 16:00 97.8 F 78 20 115/64 96 06/24/17 15:12 84 16 964 H 06/24/17 12:00 98.0 F 78 20 117/72 93 L 06/24/17 10:50 84 16 89 L 06/24/17 08:00 97.8 F 78 20 116/76 93 L Weight Admit Weight 168 lb Weight 179 lb 0.246 oz Most Recent Monitor Data Heart Rate from ECG 90 NIBP 108/66 NIBP BP-Mean 79 Respiration from ECG 32 SpO2 95 I&O: 06/23/17 06/24/17 06/25/17 06:59 06:59 06:59 Intake Total 3871 796 4705 Output Total 550 Balance 4982 310 6614 Result Diagrams: 06/22/17 04:20 06/24/17 03:21 Additional Labs: Accuchecks 06/24/17 06/24/17 06/23/17 11:32 04:57 20:36 POC Glucose 125 H 74 118 H Phys Exam - Physical Examination Constitutional: NAD HEENT: PERRLA, moist MMs, sclera anicteric, TM's clear Neck: no nodes, no JVD, supple, full ROM Respiratory: no wheezing, no rales, no rhonchi, clear to auscultation bilateral Cardiovascular: RRR, no significant murmur, no rub Gastrointestinal: soft, non-tender, no distention, positive bowel sounds Musculoskeletal: no edema, pulses present Dx/Plan (1) COPD exacerbation Code(s): J44.1 - CHRONIC OBSTRUCTIVE PULMONARY DISEASE W (ACUTE) EXACERBATION Status: Acute Comment: improved lung sounds. weaned off vent. continue nebs , steroids. Some wheezing on exam, watch (2) Diabetes type 2, controlled Code(s): E11.9 - TYPE 2 DIABETES MELLITUS WITHOUT COMPLICATIONS Status: Chronic Qualifiers: Diabetes mellitus complication status: without complication Diabetes mellitus local intermodal truck driver insulin use: without skilled nursing use Qualified Code(s): E11.9 - Type 2 diabetes mellitus without complications (3) Pulmonary hypertension Code(s): I27.20 - PULMONARY HYPERTENSION, UNSPECIFIED Status: Chronic (4) Severe tricuspid regurgitation Code(s): I07.1 - RHEUMATIC TRICUSPID INSUFFICIENCY Status: Chronic (5) Tobacco abuse Code(s): Z72.0 - TOBACCO USE Status: Chronic (6) ALICIA (acute kidney injury) Code(s): N17.9 - ACUTE KIDNEY FAILURE, UNSPECIFIED Status: Resolved (7) Acute on chronic respiratory failure with hypoxia and hypercapnia Code(s): J96.21 - ACUTE AND CHRONIC RESPIRATORY FAILURE WITH HYPOXIA; J96.22 - ACUTE AND CHRONIC RESPIRATORY FAILURE WITH HYPERCAPNIA Status: Resolved Comment: extubated 06/20. doing well, weaning O2. suprising how fast she is improving (8) Yeast pharyngitis Code(s): B37.89 - OTHER SITES OF CANDIDIASIS Status: Resolved - Plan cont current plan of care, plan discussed w/ family, PT/OT, social services manager, respiratory therapy Dispo planning * .
[2017-06-24] MEDS: Acetaminophen 325 MG TAB PO PRN (20:41)
[2017-06-25] MEDS: Levothyroxine Sodium 75 MCG TAB PO SCH (04:58)
[2017-06-25 06:12] LABS: BUN (Urea Nitrogen) 21 mg/dL (9.8-20.1); Calc. Creatinine Clearance 135 mL/min (70-130); Calcium 9.7 mg/dL (7.8-10.44); Estimated GFR-MDRD Greater than 90; Glucose 91 mg/dL (70-105); Magnesium 1.6 mg/dL (1.6-2.6)
[2017-06-25 06:21] LABS: Anion Gap 10 mmol/L (10-20); Carbon Dioxide 40 mmol/L (22-29); Chloride 96 mmol/L (98-107); Potassium 3.8 mmol/L (3.5-5.1); Sodium 142 mmol/L (136-145)
[2017-06-25] MEDS: Furosemide 40 MG TAB PO SCH (09:06)
[2017-06-25] MEDS: Acetaminophen 325 MG TAB PO PRN (09:10)
[2017-06-25] MEDS ORDERED: Magnesium Sulfate 4 GM in Sodium Chloride 0.9% 250 ML 250 ML IVPB SCH (16:45)
--- NOTE | 2017-06-25 17:04 | PRG ---
DATE OF SERVICE: 06/25/2017 SERVICE: Pulmonary Medicine. INTERVAL HISTORY: The patient is doing really well from a respiratory standpoint. She denies any cu rrent fevers, chills, nausea or vomiting. Her breathing is comfortable. Strength in improving, albe it slowly. She is a little bit sad today. She does not think that she is going to be able to afford to going to any Inpatient Rehabilitation Center. As such, she is going to look into second best opt ion which should be going home. From my perspective, she is stable for transition home from purely r espiratory perspective though I am concerned that she has high risk for bouncing back her relative de bility from her protracted hospital course. PHYSICAL EXAMINATION: VITAL SIGNS: Afebrile, pulse 83, blood pressure 119/75, respirations 18, saturation 98% on 2 liters nasal cannula. GENERAL: The patient is awake, alert, in no apparent distress. LUNGS: Decent air entry. There is a prolonged expiratory phase. I do not appreciate wheezing. Dep endent crackles are minimal. HEART: Normal rate, regular. ABDOMEN: Soft, nontender, nondistended. Bowel sounds are positive. MUSCULOSKELETAL: No cyanosis or clubbing. There is 1+ pitting in the bilateral lower extremities. NEUROLOGIC: Grossly nonfocal. LABORATORY DATA: Sodium 142 and roughly stable. Bicarbonate is 40 and up trending, basic metabolic profile is otherwise unremarkable and magnesium 1.6. ASSESSMENT: 1. Acute on chronic hypoxic respiratory failure. 2. Chronic obstructive pulmonary disease with acute exacerbation. 3. Chronic hypercapnic respiratory failure. 4. Pulmonary hypertension, severe. 5. Obstructive sleep apnea, suspected. 6. Deconditioning, secondary to ICU stay. PLAN: The patient has developed contraction alkalosis. She remains a little volume overloaded, but I do not think that we need to provide her with aggressive diuretics at this time. Magnesium and pot assium will be replaced. We will decrease her Lasix interval. I would like for her to follow up sami adams in the outpatient setting in 2-4 weeks after she is discharged from the hospital. We will mir martine to follow while she remains inhouse. Ultimately, I would like for her to undergo an outpatient p olysomnogram which may prove difficult given her lack of funding.
--- NOTE | 2017-06-25 17:13 | PDOC.PN ---
- Subjective Encounter Start Date: 06/25/17 Encounter Start Time: 17:11 Subjective: still very weak requiring full assist - Objective Resuscitation Status: Resuscitation Status FULL:Full Resuscitation Vital Signs & Weight: Vital Signs (12 hours) Temp Pulse Resp BP Pulse Ox 06/25/17 10:29 83 16 92 L 06/25/17 08:00 98.0 F 83 16 119/75 92 L 06/25/17 07:24 80 16 93 L Weight Admit Weight 168 lb Weight 179 lb 0.246 oz Most Recent Monitor Data Heart Rate from ECG 90 NIBP 108/66 NIBP BP-Mean 79 Respiration from ECG 32 SpO2 95 I&O: 06/24/17 06/25/17 06/26/17 06:59 06:59 06:59 Intake Total 440 1660 Balance 440 1660 Result Diagrams: 06/22/17 04:20 06/25/17 05:44 Additional Labs: Accuchecks 06/25/17 06/25/17 06/24/17 11:16 05:44 22:02 POC Glucose 170 H 91 145 H 06/24/17 17:06 POC Glucose 167 H Phys Exam - Physical Examination Constitutional: NAD HEENT: PERRLA, moist MMs, sclera anicteric Neck: no nodes, no JVD, supple, full ROM Respiratory: no wheezing, no rales, no rhonchi, clear to auscultation bilateral Cardiovascular: RRR, no significant murmur, no rub Gastrointestinal: non-tender Dx/Plan (1) COPD exacerbation Code(s): J44.1 - CHRONIC OBSTRUCTIVE PULMONARY DISEASE W (ACUTE) EXACERBATION Status: Acute Comment: improved lung sounds. weaned off vent. continue nebs , steroids. Some wheezing on exam, watch (2) Diabetes type 2, controlled Code(s): E11.9 - TYPE 2 DIABETES MELLITUS WITHOUT COMPLICATIONS Status: Chronic Qualifiers: Diabetes mellitus complication status: without complication Diabetes mellitus intermediate designer insulin use: without intermediate designer use Qualified Code(s): E11.9 - Type 2 diabetes mellitus without complications (3) Pulmonary hypertension Code(s): I27.20 - PULMONARY HYPERTENSION, UNSPECIFIED Status: Chronic (4) Severe tricuspid regurgitation Code(s): I07.1 - RHEUMATIC TRICUSPID INSUFFICIENCY Status: Chronic (5) Tobacco abuse Code(s): Z72.0 - TOBACCO USE Status: Chronic (6) ALICIA (acute kidney injury) Code(s): N17.9 - ACUTE KIDNEY FAILURE, UNSPECIFIED Status: Resolved (7) Acute on chronic respiratory failure with hypoxia and hypercapnia Code(s): J96.21 - ACUTE AND CHRONIC RESPIRATORY FAILURE WITH HYPOXIA; J96.22 - ACUTE AND CHRONIC RESPIRATORY FAILURE WITH HYPERCAPNIA Status: Resolved Comment: extubated 06/20. doing well, weaning O2. suprising how fast she is improving (8) Yeast pharyngitis Code(s): B37.89 - OTHER SITES OF CANDIDIASIS Status: Resolved - Plan plan discussed w/ family, PT/OT, rn social services, respiratory therapy * .
[2017-06-26] MEDS: Levothyroxine Sodium 75 MCG TAB PO SCH (06:19)
[2017-06-26] MEDS: Furosemide 40 MG TAB PO SCH (08:29)
--- NOTE | 2017-06-26 12:35 | PDOC.PN ---
- Subjective Encounter Start Date: 06/26/17 Encounter Start Time: 12:33 Subjective: Seen and examined condition still same rerquiring Max assist - Objective Resuscitation Status: Resuscitation Status FULL:Full Resuscitation Vital Signs & Weight: Vital Signs (12 hours) Temp Pulse Resp BP BP Pulse Ox 06/26/17 11:06 87 18 06/26/17 08:31 98.1 F 96 16 113/71 06/26/17 08:00 98.1 F 96 16 111/72 96 06/26/17 06:33 92 L 06/26/17 06:31 82 12 06/26/17 02:40 16 Weight Admit Weight 168 lb Weight 179 lb 0.246 oz Most Recent Monitor Data Heart Rate from ECG 90 NIBP 108/66 NIBP BP-Mean 79 Respiration from ECG 32 SpO2 95 I&O: 06/25/17 06/26/17 06/27/17 06:59 06:59 06:59 Intake Total 1660 1420 Balance 1660 1420 Result Diagrams: 06/22/17 04:20 06/25/17 05:44 Additional Labs: Accuchecks 06/26/17 06/26/17 06/25/17 10:56 05:59 19:50 POC Glucose 106 87 128 H 06/25/17 06/25/17 17:50 16:11 POC Glucose 125 H 122 H Phys Exam - Physical Examination Constitutional: NAD HEENT: PERRLA, moist MMs, sclera anicteric, TM's clear Neck: no nodes, no JVD, supple, full ROM Respiratory: no wheezing, no rales, no rhonchi, clear to auscultation bilateral Cardiovascular: RRR, no significant murmur Gastrointestinal: soft, non-tender, no distention, positive bowel sounds Musculoskeletal: no edema, pulses present Dx/Plan (1) COPD exacerbation Code(s): J44.1 - CHRONIC OBSTRUCTIVE PULMONARY DISEASE W (ACUTE) EXACERBATION Status: Acute Comment: improved lung sounds. weaned off vent. continue nebs , steroids. Some wheezing on exam, watch (2) Diabetes type 2, controlled Code(s): E11.9 - TYPE 2 DIABETES MELLITUS WITHOUT COMPLICATIONS Status: Chronic Qualifiers: Diabetes mellitus complication status: without complication Diabetes mellitus assistant terminal manager insulin use: without snf use Qualified Code(s): E11.9 - Type 2 diabetes mellitus without complications (3) Pulmonary hypertension Code(s): I27.20 - PULMONARY HYPERTENSION, UNSPECIFIED Status: Chronic (4) Severe tricuspid regurgitation Code(s): I07.1 - RHEUMATIC TRICUSPID INSUFFICIENCY Status: Chronic (5) Tobacco abuse Code(s): Z72.0 - TOBACCO USE Status: Chronic (6) ALICIA (acute kidney injury) Code(s): N17.9 - ACUTE KIDNEY FAILURE, UNSPECIFIED Status: Resolved (7) Acute on chronic respiratory failure with hypoxia and hypercapnia Code(s): J96.21 - ACUTE AND CHRONIC RESPIRATORY FAILURE WITH HYPOXIA; J96.22 - ACUTE AND CHRONIC RESPIRATORY FAILURE WITH HYPERCAPNIA Status: Resolved Comment: extubated 06/20. doing well, weaning O2. suprising how fast she is improving (8) Yeast pharyngitis Code(s): B37.89 - OTHER SITES OF CANDIDIASIS Status: Resolved - Plan plan discussed w/ family, PT/OT, professor of social work, respiratory therapy Dispo challenge due to insurance status -: clinical data manager recruited to help with placement--[facility] * .
--- NOTE | 2017-06-26 19:05 | PRG ---
DATE OF SERVICE: 06/26/2017 SUBJECTIVE: Ms. Cassie Scott says she is less short of breath, less cough. No fever or chills. OBJECTIVE: VITAL SIGNS: Blood pressure 113/70, respirations 18 and temperature 98. CHEST: Bilateral rhonchi. CARDIAC: Normal S1 and S2. No gallops. ABDOMEN: Soft. IMPRESSION: Respiratory failure, chronic obstructive pulmonary disease, pulmonary hypertension, obst ructive sleep apnea, and severe deconditioning. PLAN: Continue aggressive neb treatments, supportive care and PT. I have ordered some treatments. We will follow.
--- NOTE | 2017-06-26 20:53 | EKG ---
Test Reason : Blood Pressure : / mmHG Vent. Rate : 090 BPM Atrial Rate : 090 BPM P-R Int : 152 ms QRS Dur : 078 ms QT Int : 356 ms P-R-T Axes : 066 181 059 degrees QTc Int : 435 ms Normal sinus rhythm Biatrial enlargement Inferior-posterior infarct , age undetermined Possible Anterolateral infarct , age undetermined Abnormal ECG Confirmed by MARINA FORTE, KIM ([id number]), makeup editor DOC KOO ([id number]) on 06/26/2017 8:52:46 PM Referred By: Confirmed By:KIM GRAY MD
[2017-06-26] MEDS: Mometasone/Formoterol 120 PUFF INHALER INH SCH (22:20)
[2017-06-27] MEDS: Levothyroxine Sodium 75 MCG TAB PO SCH (05:02)
[2017-06-27] MEDS: Mometasone/Formoterol 120 PUFF INHALER INH SCH ×2 (06:34→18:57)
--- NOTE | 2017-06-27 08:18 | PDOC.PN ---
- Subjective Encounter Start Date: 06/27/17 Encounter Start Time: 08:17 Subjective: Seen and examined condition remains same - Objective Resuscitation Status: Resuscitation Status FULL:Full Resuscitation Vital Signs & Weight: Vital Signs (12 hours) Pulse Resp Pulse Ox 06/27/17 06:34 83 24 H 06/27/17 06:28 94 L 06/27/17 06:27 83 24 H 06/27/17 02:32 12 Weight Admit Weight 168 lb Weight 179 lb 0.246 oz Most Recent Monitor Data Heart Rate from ECG 90 NIBP 108/66 NIBP BP-Mean 79 Respiration from ECG 32 SpO2 95 I&O: 06/26/17 06/27/17 06/28/17 06:59 06:59 06:59 Intake Total 1420 1440 Balance 1420 1440 Result Diagrams: 06/22/17 04:20 06/25/17 05:44 Additional Labs: Accuchecks 06/27/17 06/26/17 06/26/17 05:40 19:43 17:04 POC Glucose 86 110 127 H 06/26/17 10:56 POC Glucose 106 Phys Exam - Physical Examination Constitutional: NAD HEENT: PERRLA, moist MMs, sclera anicteric, TM's clear Neck: no nodes, no JVD, supple, full ROM Respiratory: no wheezing, no rales, no rhonchi, clear to auscultation bilateral Cardiovascular: RRR, no significant murmur, no rub Gastrointestinal: soft, non-tender, no distention, positive bowel sounds Musculoskeletal: no edema, pulses present Dx/Plan (1) COPD exacerbation Code(s): J44.1 - CHRONIC OBSTRUCTIVE PULMONARY DISEASE W (ACUTE) EXACERBATION Status: Acute Comment: improved lung sounds. weaned off vent. continue nebs , steroids. Some wheezing on exam, watch (2) Diabetes type 2, controlled Code(s): E11.9 - TYPE 2 DIABETES MELLITUS WITHOUT COMPLICATIONS Status: Chronic Qualifiers: Diabetes mellitus complication status: without complication Diabetes mellitus ferry terminal agent insulin use: without ferry terminal agent use Qualified Code(s): E11.9 - Type 2 diabetes mellitus without complications (3) Pulmonary hypertension Code(s): I27.20 - PULMONARY HYPERTENSION, UNSPECIFIED Status: Chronic (4) Severe tricuspid regurgitation Code(s): I07.1 - RHEUMATIC TRICUSPID INSUFFICIENCY Status: Chronic (5) Tobacco abuse Code(s): Z72.0 - TOBACCO USE Status: Chronic (6) ALICIA (acute kidney injury) Code(s): N17.9 - ACUTE KIDNEY FAILURE, UNSPECIFIED Status: Resolved (7) Acute on chronic respiratory failure with hypoxia and hypercapnia Code(s): J96.21 - ACUTE AND CHRONIC RESPIRATORY FAILURE WITH HYPOXIA; J96.22 - ACUTE AND CHRONIC RESPIRATORY FAILURE WITH HYPERCAPNIA Status: Resolved Comment: extubated 06/20. doing well, weaning O2. suprising how fast she is improving (8) Yeast pharyngitis Code(s): B37.89 - OTHER SITES OF CANDIDIASIS Status: Resolved - Plan plan discussed w/ family, PT/OT, social media strategist, respiratory therapy Dispo challenge -: manager of hospital working on [facility] bed * .
[2017-06-27] MEDS: Furosemide 40 MG TAB PO SCH (08:29)
--- NOTE | 2017-06-27 16:41 | PRG ---
DATE OF SERVICE: 06/27/2017 SUBJECTIVE: This morning, she is weak, but somewhat better. She is coughing, but sputum is relative ly clear. OBJECTIVE: VITAL SIGNS: Blood pressure 118/86, sats 95% on 2 liters, respirations 18. CHEST: Bilateral rhonchi. CARDIAC: Normal S1 and S2. No gallops. ABDOMEN: Soft. No masses. IMPRESSION: 1. Chronic obstructive pulmonary disease. 2. Severe deconditioning. 3. Congestive heart failure. PLAN: Continue DuoNeb, Dulera, diuretics, and supportive care. Aggressive PT.
[2017-06-28] MEDS: Levothyroxine Sodium 75 MCG TAB PO SCH (05:37)
[2017-06-28] MEDS: Mometasone/Formoterol 120 PUFF INHALER INH SCH ×2 (07:32→20:02)
[2017-06-28] MEDS: Furosemide 40 MG TAB PO SCH (08:19)
--- NOTE | 2017-06-28 09:05 | PDOC.PN ---
- Subjective Encounter Start Date: 06/28/17 Encounter Start Time: 10:00 Subjective: Patient still very weak. No SOB at rest currently. - Objective Resuscitation Status: Resuscitation Status FULL:Full Resuscitation MAR Reviewed: Yes Vital Signs & Weight: Vital Signs (12 hours) Temp Pulse Resp BP Pulse Ox 06/28/17 08:11 97.4 F L 87 20 121/78 99 06/28/17 07:32 85 16 98 06/28/17 07:29 85 16 98 06/28/17 02:41 16 06/27/17 22:27 87 16 Weight Admit Weight 168 lb Weight 179 lb 0.246 oz Most Recent Monitor Data Heart Rate from ECG 90 NIBP 108/66 NIBP BP-Mean 79 Respiration from ECG 32 SpO2 95 I&O: 06/27/17 06/28/17 06/29/17 06:59 06:59 06:59 Intake Total 1440 410 Balance 1440 410 Result Diagrams: 06/22/17 04:20 06/25/17 05:44 Additional Labs: Accuchecks 06/28/17 06/27/17 06/27/17 05:32 20:11 16:54 POC Glucose 83 92 262 H 06/27/17 11:08 POC Glucose 111 H Phys Exam - Physical Examination Constitutional: NAD HEENT: moist MMs Respiratory: no wheezing, no rales, no rhonchi Cardiovascular: RRR, no significant murmur Gastrointestinal: soft, positive bowel sounds Neurological: non-focal, moves all 4 limbs Psychiatric: normal affect, A&O x 3 Dx/Plan (1) COPD exacerbation Code(s): J44.1 - CHRONIC OBSTRUCTIVE PULMONARY DISEASE W (ACUTE) EXACERBATION Status: Acute Comment: On oral steroids and nebs, sating well on 2L O2 (2) Diabetes type 2, controlled Code(s): E11.9 - TYPE 2 DIABETES MELLITUS WITHOUT COMPLICATIONS Status: Chronic Qualifiers: Diabetes mellitus complication status: without complication Diabetes mellitus long term care pharmacist insulin use: without usp use Qualified Code(s): E11.9 - Type 2 diabetes mellitus without complications (3) Pulmonary hypertension Code(s): I27.20 - PULMONARY HYPERTENSION, UNSPECIFIED Status: Chronic (4) Severe tricuspid regurgitation Code(s): I07.1 - RHEUMATIC TRICUSPID INSUFFICIENCY Status: Chronic (5) Tobacco abuse Code(s): Z72.0 - TOBACCO USE Status: Chronic (6) Acute on chronic respiratory failure with hypoxia and hypercapnia Code(s): J96.21 - ACUTE AND CHRONIC RESPIRATORY FAILURE WITH HYPOXIA; J96.22 - ACUTE AND CHRONIC RESPIRATORY FAILURE WITH HYPERCAPNIA Status: Resolved Comment: on NC O2 (7) Yeast pharyngitis Code(s): B37.89 - OTHER SITES OF CANDIDIASIS Status: Resolved - Plan cont current plan of care, PT/OT Attempting placement * . - Discharge Day Encounter end time: 10:15
--- NOTE | 2017-06-28 17:08 | PRG ---
DATE OF SERVICE: 06/28/2017 SERVICE: Pulmonary Medicine. INTERVAL HISTORY: The patient is doing really quite well from a respiratory standpoint. She is amando thing comfortably. Otherwise, there has been no interval change in her condition. The lab holiday c ontinues, but truth be told, we have not had any additional requirements for laboratories. PHYSICAL EXAMINATION: VITAL SIGNS: Afebrile, pulse 99, blood pressure 108/70, respirations 16, saturation 97% on 2 liters nasal cannula. GENERAL: The patient is awake, alert, in no apparent distress. LUNGS: Excellent air entry. There is a prolonged expiratory phase. No wheezing, rhonchi, or crackl es are appreciated. HEART: Normal rate, regular. ABDOMEN: Soft, nontender, nondistended. Bowel sounds are positive. MUSCULOSKELETAL: No cyanosis or clubbing. No pitting in the bilateral lower extremities. NEUROLOGIC: Grossly nonfocal. ASSESSMENT: 1. Acute on chronic hypoxic respiratory failure, resolved to baseline. 2. Chronic obstructive pulmonary disease with acute exacerbation. 3. Chronic hypercapnic respiratory failure. 4. Pulmonary hypertension, severe. 5. Obstructive sleep apnea, suspected. 6. Deconditioning secondary to a prolonged hospital stay. PLAN: The patient is doing fantastic from a respiratory standpoint. At this point, she has no furth er requirements for inpatient pulmonary or critical care opinion. I would like her to see me in the outpatient setting in 2-4 weeks so that we can arrange for an outpatient polysomnogram and put in a r eferral for her to see pulmonary hypertension clinic. This may prove difficult; however, because of her lack of funding, but we will make this effort.
[2017-06-29] MEDS: Levothyroxine Sodium 75 MCG TAB PO SCH (05:52)
[2017-06-29] MEDS: Mometasone/Formoterol 120 PUFF INHALER INH SCH ×2 (07:14→18:39)
[2017-06-29] MEDS: Furosemide 40 MG TAB PO SCH (10:03)
--- NOTE | 2017-06-29 14:22 | PDOC.PN ---
- Subjective Encounter Start Date: 06/29/17 Encounter Start Time: 13:45 Patient seen and examined. No new complaints. No overnight events. Sitting on chair. SOB on exertion. - Objective Resuscitation Status: Resuscitation Status FULL:Full Resuscitation MAR Reviewed: Yes Vital Signs & Weight: Vital Signs (12 hours) Temp Pulse Resp BP Pulse Ox 06/29/17 12:03 87 20 95 06/29/17 08:00 97.7 F 92 20 116/77 96 06/29/17 07:14 99 19 94 L 06/29/17 07:12 99 19 94 L Weight Admit Weight 168 lb Weight 179 lb 0.246 oz Most Recent Monitor Data Heart Rate from ECG 90 NIBP 108/66 NIBP BP-Mean 79 Respiration from ECG 32 SpO2 95 I&O: 06/28/17 06/29/17 06/30/17 06:59 06:59 06:59 Intake Total 410 400 Output Total 1 Balance 410 399 Result Diagrams: 06/22/17 04:20 06/25/17 05:44 Additional Labs: Accuchecks 06/29/17 06/29/17 06/28/17 11:28 04:42 19:49 POC Glucose 85 110 84 06/28/17 16:01 POC Glucose 118 H Phys Exam - Physical Examination Constitutional: NAD Respiratory: no wheezing, no rhonchi Cardiovascular: RRR, no rub Gastrointestinal: soft, non-tender, positive bowel sounds Musculoskeletal: edema present (1+) Neurological: moves all 4 limbs Dx/Plan - Plan DVT proph w/SCDs IMPRESSION: 1. Acute hypoxic respiratory failure secondary to chronic obstructive pulmonary disease exacerbation. 2. Chronic diastolic heart failure 3. Diabetes mellitus, type 2. 4. Hypertension. 5. Elevated troponins, probably secondary to demand ischemia. 6. Cannabis abuse. 7. Ongoing tobacco abuse. 8. Hypothyroidism following thyroidectomy/Pulmonary hypertension/Severe tricuspid regurgitation with right-sided heart failure/Abnormal liver function tests, probably secondary to passive hepatic congestion/Mild protein calorie malnutrition/Acute kidney injury on chronic kidney disease stage 2, probably secondary to over diuresis/Metabolic alkalosis, probably contraction alkalosis. PLAN: * AM labs * Cont Lasix * Add fluid restriction * Cont PT * DC in 1-2 days if stable Review of Systems - Review of Systems Respiratory: negative: Cough, Dry, Shortness of Breath, Hemoptysis, SOB with Excertion, Pleuritic Pain, Sputum, Wheezing Gastrointestinal: Constipation. negative: Nausea, Vomiting, Abdominal Pain, Diarrhea, Melena, Hematochezia - Medications/Allergies Allergies/Adverse Reactions: Allergies Allergy/AdvReac Type Severity Reaction Status Date / Time No Known Allergies Allergy Verified 06/08/17 18:44 Medications: Current Medications Acetaminophen (Tylenol) 650 mg PO Q4H PRN PRN Reason: Headache/Fever or Pain Last Admin: 06/25/17 09:10 Dose: 650 mg Albuterol/Ipratropium (Duoneb) 3 ml NEB [id number] [facility] Last Admin: 06/29/17 12:03 Dose: 3 ml Aspirin (Ecotrin) 81 mg PO DAILY [facility] Bisacodyl (Dulcolax) 10 mg LA Q8H PRN PRN Reason: Constipation Last Admin: 06/16/17 14:39 Dose: 10 mg Cyanocobalamin (Vitamin B-12) 1,000 mcg PO DAILY [facility] Dextrose/Water (Dextrose 50%) 25 gm SLOW IVP PRN PRN PRN Reason: Hypoglycemia Folic Acid (Folvite) 1 mg PO DAILY [facility] Furosemide (Lasix) 40 mg PO DAILY-[facility] Last Admin: 06/29/17 10:03 Dose: 40 mg Glucagon (Glucagon) 1 mg IM PRN PRN PRN Reason: Hypoglycemia Dextrose/Water (D5w) 1,000 mls @ 0 mls/hr IV .Q0M PRN; As Directed PRN Reason: Hypoglycemia Insulin Human Regular (Humulin R) 0 units SC .MILD SLIDING SCALE PRN PRN Reason: Mild Correctional Scale Last Admin: 06/17/17 15:13 Dose: 2 unit Insulin Human Regular (Humulin R) 0 units SC .BEDTIME SLIDING SC PRN PRN Reason: Bedtime Correctional Scale Levothyroxine Sodium (Synthroid) 75 mcg PO 0600 [facility] Last Admin: 06/29/17 05:52 Dose: 75 mcg Mometasone Furoate/Formoterol Fumar (Dulera 200 Mcg/5 Mcg Inhaler) 2 puff INH BID-RT [facility] Last Admin: 06/29/17 07:14 Dose: 2 puff Ondansetron HCl (Zofran) 4 mg IVP Q6H PRN PRN Reason: Nausea/Vomiting Last Admin: 06/18/17 16:41 Dose: 4 mg
[2017-06-29] MEDS ORDERED: Polyethylene Glycol 3350 17 GM Packet PO SCH (14:30)
[2017-06-29] MEDS: Polyethylene Glycol 3350 17 GM Packet PO SCH (14:44)
[2017-06-29] MEDS: Senokot S 8.6-50 MG TAB PO SCH (20:09)
[2017-06-30 04:48] LABS: Hemoglobin 14.2 g/dL (12.0-16.0); Platelet Count 114 thou/uL (130-400)
[2017-06-30 05:10] LABS: Albumin 2.9 g/dL (3.5-5.0); Anion Gap 10 mmol/L (10-20); BUN (Urea Nitrogen) 18 mg/dL (9.8-20.1); BUN/Creatinine Ratio 31.03; Calc. Creatinine Clearance 142 mL/min (70-130); Carbon Dioxide 35 mmol/L (22-29); Chloride 100 mmol/L (98-107); Estimated GFR-MDRD Greater than 90; Glucose 96 mg/dL (70-105); Magnesium 1.5 mg/dL (1.6-2.6); Phosphorus 2.6 mg/dL (2.3-4.7); Potassium 3.8 mmol/L (3.5-5.1); Sodium 141 mmol/L (136-145)
[2017-06-30] MEDS: Levothyroxine Sodium 75 MCG TAB PO SCH (05:37)
[2017-06-30] MEDS ORDERED: Magnesium Sulfate 2 GM in Sodium Chloride 0.9% 100 ML IVPB SCH (07:30)
[2017-06-30] MEDS ORDERED: Magnesium 2 GM/NS 0.9% 100 ML 2 GM in Premix Bag 1 BAG IVPB SCH (08:00)
[2017-06-30] MEDS: Polyethylene Glycol 3350 17 GM Packet PO SCH (08:16)
[2017-06-30] MEDS: Cyanocobalamin (Vitamin B-12) 1,000 MCG TAB PO SCH (08:19)
[2017-06-30] MEDS: Furosemide 40 MG TAB PO SCH (08:19)
[2017-06-30] MEDS: Folic Acid 1 MG TAB PO SCH (08:19)
[2017-06-30] MEDS: Aspirin 81 mg Enteric Coated Tablet PO SCH (08:19)
[2017-06-30] MEDS: Senokot S 8.6-50 MG TAB PO SCH ×2 (08:19→21:15)
[2017-06-30] MEDS: Mometasone/Formoterol 120 PUFF INHALER INH SCH ×2 (10:07→22:13)
--- NOTE | 2017-06-30 13:50 | PDOC.PN ---
- Subjective Encounter Start Date: 06/30/17 Encounter Start Time: 13:00 Patient seen and examined. No new complaints. No overnight events - Objective Resuscitation Status: Resuscitation Status FULL:Full Resuscitation MAR Reviewed: Yes Vital Signs & Weight: Vital Signs (12 hours) Temp Pulse Resp BP Pulse Ox 06/30/17 11:32 86 18 97 06/30/17 10:07 93 18 96 06/30/17 08:00 97.8 F 93 20 118/73 97 Weight Admit Weight 168 lb Weight 179 lb 0.246 oz Most Recent Monitor Data Heart Rate from ECG 90 NIBP 108/66 NIBP BP-Mean 79 Respiration from ECG 32 SpO2 95 I&O: 06/29/17 06/30/17 07/01/17 06:59 06:59 06:59 Intake Total 400 60 Output Total 1 Balance 399 60 Result Diagrams: 06/30/17 04:21 06/30/17 04:21 Additional Labs: Accuchecks 06/30/17 06/30/17 06/29/17 11:24 05:36 20:06 POC Glucose 96 94 161 H 06/29/17 16:20 POC Glucose 186 H Phys Exam - Physical Examination Constitutional: NAD Respiratory: no wheezing, no rhonchi Cardiovascular: RRR, no rub Gastrointestinal: soft, non-tender, positive bowel sounds Neurological: moves all 4 limbs Dx/Plan - Plan DVT proph w/SCDs IMPRESSION: 1. Acute hypoxic respiratory failure secondary to chronic obstructive pulmonary disease exacerbation. 2. Chronic diastolic heart failure 3. Diabetes mellitus, type 2. 4. Hypertension. 5. Elevated troponins, probably secondary to demand ischemia. 6. Hypomagnesemia 7. Ongoing tobacco abuse. 8. Hypothyroidism following thyroidectomy/Pulmonary hypertension/Severe tricuspid regurgitation with right-sided heart failure/Abnormal liver function tests, probably secondary to passive hepatic congestion/Mild protein calorie malnutrition/Acute kidney injury on chronic kidney disease stage 2, probably secondary to over diuresis/Metabolic alkalosis, probably contraction alkalosis/ Cannabis abuse. PLAN: * AM labs * Cont Lasix * Add fluid restriction * Cont PT * DC in AM if stable * Replace Mg Review of Systems - Review of Systems Cardiovascular: negative: chest pain, palpitations, orthopnea, paroxysmal nocturnal dyspnea, edema, light headedness Gastrointestinal: negative: Nausea, Vomiting, Abdominal Pain, Diarrhea, Constipation, Melena, Hematochezia - Medications/Allergies Allergies/Adverse Reactions: Allergies Allergy/AdvReac Type Severity Reaction Status Date / Time No Known Allergies Allergy Verified 06/08/17 18:44 Medications: Current Medications Acetaminophen (Tylenol) 650 mg PO Q4H PRN PRN Reason: Headache/Fever or Pain Last Admin: 06/25/17 09:10 Dose: 650 mg Albuterol/Ipratropium (Duoneb) 3 ml NEB [id number] [facility] Last Admin: 06/30/17 11:32 Dose: 3 ml Aspirin (Ecotrin) 81 mg PO DAILY [facility] Last Admin: 06/30/17 08:19 Dose: 81 mg Bisacodyl (Dulcolax) 10 mg OR Q8H PRN PRN Reason: Constipation Last Admin: 06/16/17 14:39 Dose: 10 mg Cyanocobalamin (Vitamin B-12) 1,000 mcg PO DAILY [facility] Last Admin: 06/30/17 08:19 Dose: 1,000 mcg Dextrose/Water (Dextrose 50%) 25 gm SLOW IVP PRN PRN PRN Reason: Hypoglycemia Folic Acid (Folvite) 1 mg PO DAILY [facility] Last Admin: 06/30/17 08:19 Dose: 1 mg Furosemide (Lasix) 40 mg PO DAILY-AC [facility] Last Admin: 06/30/17 08:19 Dose: 40 mg Glucagon (Glucagon) 1 mg IM PRN PRN PRN Reason: Hypoglycemia Dextrose/Water (D5w) 1,000 mls @ 0 mls/hr IV .Q0M PRN; As Directed PRN Reason: Hypoglycemia Insulin Human Regular (Humulin R) 0 units SC .MILD SLIDING SCALE PRN PRN Reason: Mild Correctional Scale Last Admin: 06/17/17 15:13 Dose: 2 unit Insulin Human Regular (Humulin R) 0 units SC .BEDTIME SLIDING SC PRN PRN Reason: Bedtime Correctional Scale Levothyroxine Sodium (Synthroid) 75 mcg PO 0600 [facility] Last Admin: 06/30/17 05:37 Dose: 75 mcg Mometasone Furoate/Formoterol Fumar (Dulera 200 Mcg/5 Mcg Inhaler) 2 puff INH BID-RT [facility] Last Admin: 06/30/17 10:07 Dose: 2 puff Ondansetron HCl (Zofran) 4 mg IVP Q6H PRN PRN Reason: Nausea/Vomiting Last Admin: 06/18/17 16:41 Dose: 4 mg Polyethylene Glycol (Miralax) 17 gm PO DAILY [facility] Last Admin: 06/30/17 08:16 Dose: 17 gm Senna/Docusate Sodium (Senokot S) 1 tab PO BID [facility] Last Admin: 06/30/17 08:19 Dose: 1 tab
[2017-07-01] MEDS: Levothyroxine Sodium 75 MCG TAB PO SCH (05:39)
[2017-07-01] MEDS: Mometasone/Formoterol 120 PUFF INHALER INH SCH (08:13)
[2017-07-01] MEDS: Cyanocobalamin (Vitamin B-12) 1,000 MCG TAB PO SCH (09:53)
[2017-07-01] MEDS: Folic Acid 1 MG TAB PO SCH (09:53)
[2017-07-01] MEDS: Aspirin 81 mg Enteric Coated Tablet PO SCH (09:53)
[2017-07-01] MEDS: Senokot S 8.6-50 MG TAB PO SCH (09:53)
[2017-07-01] MEDS: Furosemide 40 MG TAB PO SCH (09:59)
[2017-07-01 12:10] VITALS: BP 115/74; TEMP 98.1
--- NOTE | 2017-07-01 13:18 | DIS ---
DATE OF ADMISSION: 06/08/2017 DATE OF DISCHARGE: 07/01/2017 DISCHARGE DISPOSITION: Home. FOLLOWUP: With [facility] in [facility] week. Fluid restriction 2 liters a day. Salt restriction 2 grams a day. ALLERGIES: No known drug allergies. The patient was seen and examined on the day of discharge. DISCHARGE MEDICATIONS: Aspirin 81 mg daily, albuterol inhaler as needed, Lasix 40 mg daily, levothyr oxine 75 mcg daily, lisinopril 2.5 mg daily, Dulera 200 mcg b.i.d., multivitamin 1 tablet daily, Lilly Lax 17 grams daily. INPATIENT CONSULTANTS: 1. Cardiology, Dr. Rodriguez. 2. Pulmonary, Dr. Salter. 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 Please note that patient was discharged from this facility on 05/20/2017. Please refer to the history and physi brando as well as the discharge summary for details. The patient was admitted to the intermediate care unit with a diagnosis of acute hypoxic respiratory failure secondary to chronic obstructive pulmonary disease exacerbation. She failed noninvasive posi tive pressure ventilation and required intubation. She was seen by Cardiology, Dr. Rodriguez, as wel l as Pulmonary, Dr. Salter. She showed good improvement with steroids, antibiotics, and nebulizer t reatments. She was then transferred to the medical floor. Over the last few days, patient has shown good improvement with physical therapy. She walked 80 feet today. She will be discharged home with [facility]. Rolling walker, wheelchair, has been arranged. Home oxygen has been arranged through [facility]. She was extensively counseled on heart failure. FINAL DIAGNOSES: 1. Acute hypoxic and hypercapnic respiratory failure secondary to chronic obstructive pulmonary dise ase exacerbation. 2. Chronic diastolic heart failure. 3. Diabetes mellitus type 2. 4. Hypertension. 5. Elevated troponin secondary to demand ischemia. 6. Hypomagnesemia. 7. Ongoing tobacco abuse. 8. Hypothyroidism following thyroidectomy. 9. Pulmonary hypertension. 10. Severe tricuspid regurgitation with right-sided heart failure. 11. Abnormal liver enzymes secondary to passive hepatic congestion. 12. Mild protein calorie malnutrition. 13. Acute kidney injury on chronic kidney disease stage 2, improved. 14. Metabolic alkalosis, probably secondary to contraction alkalosis. 15. Cannabis abuse. Total time coordinating the discharge of this patient was 40 minutes.
== END 2017-07-01 18:04 | disposition home health service (06) | DRG 207 ==
LOC: ERS 13:52 → IMCU/EMU 18:37 → CCU 06-09 10:35 → IMCU/EMU 06-21 16:03 → T4-B 06-23 17:07
PROVIDERS: ADMIT Internal Medicine; ATTEND Internal Medicine
PROC: 5A1955Z Respiratory Ventilation, Greater than 96 Consecutive Hours (ICD-10-PCS; principal; 2017-06-09)
PROC: 0BH17EZ Insertion of Endotracheal Airway into Trachea, Via Natural or Artificial Opening (ICD-10-PCS; 2017-06-09)
PROC: 0BCB8ZZ Extirpation of Matter from Left Lower Lobe Bronchus, Via Natural or Artificial Opening Endoscopic (ICD-10-PCS; 2017-06-09)
PROC: 0BC68ZZ Extirpation of Matter from Right Lower Lobe Bronchus, Via Natural or Artificial Opening Endoscopic (ICD-10-PCS; 2017-06-09)
PROC: 0BC18ZZ Extirpation of Matter from Trachea, Via Natural or Artificial Opening Endoscopic (ICD-10-PCS; 2017-06-09)
PROC: 02HV33Z Insertion of Infusion Device into Superior Vena Cava, Percutaneous Approach (ICD-10-PCS; 2017-06-09)
DX: J96.21 Acute and chronic respiratory failure with hypoxia (principal); N17.9 Acute kidney failure, unspecified; E87.3 Alkalosis; B37.89 Other sites of candidiasis; E87.2 Acidosis; I95.9 Hypotension, unspecified; I13.0 Hypertensive heart and chronic kidney disease with heart failure and stage 1 through stage 4 chronic kidney disease, or unspecified chronic kidney disease; E44.1 Mild protein-calorie malnutrition; I50.32 Chronic diastolic (congestive) heart failure; R65.10 Systemic inflammatory response syndrome (SIRS) of non-infectious origin without acute organ dysfunction; I24.8 Other forms of acute ischemic heart disease; J44.1 Chronic obstructive pulmonary disease with (acute) exacerbation; E11.22 Type 2 diabetes mellitus with diabetic chronic kidney disease; I07.1 Rheumatic tricuspid insufficiency; E83.42 Hypomagnesemia; J96.22 Acute and chronic respiratory failure with hypercapnia; I27.20 Pulmonary hypertension, unspecified; F17.210 Nicotine dependence, cigarettes, uncomplicated; F12.10 Cannabis abuse, uncomplicated; N18.2 Chronic kidney disease, stage 2 (mild); Z79.84 Long term (current) use of oral hypoglycemic drugs; Z79.82 Long term (current) use of aspirin; G47.33 Obstructive sleep apnea (adult) (pediatric); E03.9 Hypothyroidism, unspecified; Z68.28 Body mass index [BMI] 28.0-28.9, adult
CPT/HCPCS: 36415; 36416; 71010; 71045; 80048; 80053; 80069; 81003; 81015; 82550; 82553; 82805; 83605; 83690; 83735; 83880; 84484; 85014; 85018; 85025; 85049; 85610; 85730; 87070; 87086; 87205; 93005; 94002; 94003; 94640; 94660; 94760; 96361; 96365; 96366; 96374; A4216; G8978-GP-CM; G8979-GP-CK; G8987-GO-CM; G8988-GO-CK; J0330; J0696; J1250; J1450; J1650; J1815; J1940; J2405; J2704; J2920; J2930; J3010; J3475; J7050; J7070; J7620; S0028

== ENCOUNTER 2017-11-12 10:21 | Emergency (ER) | payer SELFPAY ==
[2017-11-12 11:06] LABS: #Basophils 0.1 thou/uL (0.0-0.2); #Eosinphils 0.1 thou/uL (0.0-0.7); #Lymphocytes 2.1 thou/uL (1.20-3.40); #Monocytes 0.6 thou/uL (0.11-0.59); #Neutrophils 3.4 thou/uL (1.40-6.50); %Basophils 1.9 % (0.0-1.0); %Lymphocytes 33.4 % (21.0-51.0); %Monocytes 9.2 % (0.0-10.0); %Neutrophils 54.5 % (42.0-75.0); Hemoglobin 14.7 g/dL (12.0-16.0); Mean Corpuscular HGB CONC 30.9 g/dL (32.0-36.0); Mean Corpuscular Hemoglobin 27.6 pg (27.0-31.0); Mean Corpuscular Volume 89.3 fl (81.0-99.0); Mean Platelet Volume 11.2 fL (7.4-10.4); Platelet Count 169 thou/uL (130-400); RBC Distribution Width 14.8 % (11.5-14.5); Red Blood Cell (RBC) Count 5.32 mill/uL (4.20-5.40); White Blood Cell (WBC) Count 6.2 thou/uL (4.8-10.8)
[2017-11-12 11:29] LABS: ALT (SGPT) 42 U/L (8-55); AST (SGOT) 46 U/L (5-34); Albumin 3.2 g/dL (3.5-5.0); Alkaline Phosphatase 204 U/L (40-150); Anion Gap 13 mmol/L (10-20); BUN (Urea Nitrogen) 28 mg/dL (9.8-20.1); Bilirubin, Total 0.7 mg/dL (0.2-1.2); CK (CPK) 107 U/L (29-168); Calc. Creatinine Clearance 0 mL/min (70-130); Calcium 8.8 mg/dL (7.8-10.44); Carbon Dioxide 28 mmol/L (22-29); Chloride 104 mmol/L (98-107); Estimated GFR-MDRD 88; Glucose 122 mg/dL (70-105); Potassium 3.9 mmol/L (3.5-5.1); Protein, Total 6.2 g/dL (6.0-8.3); Sodium 141 mmol/L (136-145)
--- NOTE | 2017-11-12 11:59 | CT ---
CT OF ABDOMEN AND PELVIS PERFORMED WITHOUT CONTRAST ENHANCEMENT: Date: 11/12/17 HISTORY: Abdominal pain. Constipation. Leg swelling. FINDINGS: Lung bases show some linear changes, most suggestive of scar. Heart size appears markedly enlarged an d there is mild pericardial effusion noted. The liver measures 16.0 cm in length. No focal abnormalities on the noncontrast study. Spleen is with in normal limits of size. Pancreas is unremarkable. There is increased attenuation within the gallbla dder lumen, most likely gallstones. Ultrasound would be needed for confirmation. Mild amount of ascit es is noted within the abdomen and pelvis. Right and left adrenal glands are normal in size. Right and left kidneys are normal in size and not o bstructed. No renal calculi are seen. No signs of bowel obstruction. CT of pelvis was performed without contrast enhancement. Uterus appears normal in size. It has a slig htly lobulated contour and I cannot definitely exclude fibroids. The appendix is normal in appearance . Review of osseous structures show no lytic or blastic bony change. Subcutaneous edema change is seen within the subcutaneous tissues of the abdomen. IMPRESSION: 1. Probable gallstones. 2. Mild to moderate ascites, also with subcutaneous edema change. 3. Marked cardiomegaly with mild pericardial effusion. POS: H
[2017-11-12 12:06] LABS: CKMB 1.9 ng/mL (0-6.6); Troponin I Less than 0.010 ng/mL (< 0.028)
== END 2017-11-12 12:42 | disposition home or self-care (01) ==
LOC: ERS 10:21
DX: K59.00 Constipation, unspecified (principal); R60.0 Localized edema; E11.9 Type 2 diabetes mellitus without complications; I11.0 Hypertensive heart disease with heart failure; I50.9 Heart failure, unspecified; J44.9 Chronic obstructive pulmonary disease, unspecified; E03.9 Hypothyroidism, unspecified; F17.210 Nicotine dependence, cigarettes, uncomplicated; Z79.82 Long term (current) use of aspirin; Z79.899 Other long term (current) drug therapy
CPT/HCPCS: 74176; 80053; 82550; 82553; 84484; 85025; 93005; 94760

== ENCOUNTER 2017-11-18 14:57 | Emergency (ER) | payer SELFPAY ==
--- NOTE | 2017-11-18 16:00 | RAD ---
UPRIGHT PORTABLE CHEST ONE VIEW: 11/18/17 HISTORY: 57-year-old female with history of dyspnea. COMPARISON: 06/20/17. FINDINGS: Marked enlargement of the cardiac silhouette. Bilateral pleural effusions, small, worse on the left s leah. Mild bilateral vascular congestion but overall the amount of congestion and edema has improved f rom the prior study. IMPRESSION: Marked enlargement of the cardiac silhouette with small bilateral pleural effusions and bilateral vas cular congestion without overt edema or confluent pneumonia. POS: [facility]
[2017-11-18 16:01] LABS: ALT (SGPT) 35 U/L (8-55); AST (SGOT) 41 U/L (5-34); Albumin 3.3 g/dL (3.5-5.0); Alkaline Phosphatase 183 U/L (40-150); Anion Gap 13 mmol/L (10-20); BUN (Urea Nitrogen) 27 mg/dL (9.8-20.1); CK (CPK) 109 U/L (29-168); Calc. Creatinine Clearance 0 mL/min (70-130); Calcium 9.3 mg/dL (7.8-10.44); Carbon Dioxide 30 mmol/L (22-29); Chloride 101 mmol/L (98-107); Estimated GFR-MDRD 83; Globulin 3.1 g/dL (2.4-3.5); Glucose 115 mg/dL (70-105); Potassium 3.9 mmol/L (3.5-5.1); Protein, Total 6.4 g/dL (6.0-8.3); Sodium 140 mmol/L (136-145)
[2017-11-18 16:05] LABS: CKMB 1.9 ng/mL (0-6.6); Troponin I 0.022 ng/mL (< 0.028)
[2017-11-18] MEDS ORDERED: Furosemide 40 MG/4 ML VIAL ONE (16:21)
[2017-11-18 16:26] LABS: #Eosinphils 0.1 thou/uL (0.0-0.7); #Monocytes 0.6 thou/uL (0.11-0.59); #Neutrophils 2.5 thou/uL (1.40-6.50); %Basophils 0.9 % (0.0-1.0); %Lymphocytes 38.7 % (21.0-51.0); %Neutrophils 48.4 % (42.0-75.0); Mean Corpuscular HGB CONC 31.1 g/dL (32.0-36.0); Mean Corpuscular Hemoglobin 27.7 pg (27.0-31.0); Mean Corpuscular Volume 89.2 fl (81.0-99.0); Mean Platelet Volume 11.4 fL (7.4-10.4); Platelet Count 176 thou/uL (130-400); White Blood Cell (WBC) Count 5.2 thou/uL (4.8-10.8)
== END 2017-11-18 17:42 | disposition home or self-care (01) ==
LOC: ERS 14:57
DX: I11.0 Hypertensive heart disease with heart failure (principal); I50.9 Heart failure, unspecified; E03.9 Hypothyroidism, unspecified; J44.9 Chronic obstructive pulmonary disease, unspecified; F17.210 Nicotine dependence, cigarettes, uncomplicated; Z79.899 Other long term (current) drug therapy
CPT/HCPCS: 36415; 71045; 80053; 82550; 82553; 83690; 83880; 84484; 85025; 93005; 96374; J1940

== ENCOUNTER 2017-12-16 10:47 | Inpatient (IN) | payer SELFPAY ==
[2017-12-16 11:29] LABS: #Lymphocytes 1.8 thou/uL (1.20-3.40); #Monocytes 0.5 thou/uL (0.11-0.59); #Neutrophils 2.8 thou/uL (1.40-6.50); %Basophils 0.8 % (0.0-1.0); %Eosinophils 0.6 % (0.0-10.0); %Lymphocytes 35.5 % (21.0-51.0); %Monocytes 8.6 % (0.0-10.0); %Neutrophils 54.6 % (42.0-75.0); Hemoglobin 14.9 g/dL (12.0-16.0); Mean Corpuscular HGB CONC 30.2 g/dL (32.0-36.0); Mean Corpuscular Hemoglobin 25.8 pg (27.0-31.0); Mean Corpuscular Volume 85.5 fL (78.0-98.0); Mean Platelet Volume 11.6 fL (7.4-10.4); Platelet Count 181 thou/uL (130-400); RBC Distribution Width 16.2 % (11.5-14.5); Red Blood Cell (RBC) Count 5.77 mill/uL (4.20-5.40); White Blood Cell (WBC) Count 5.2 thou/uL (4.8-10.8)
[2017-12-16 11:42] LABS: ALT (SGPT) 27 U/L (8-55); AST (SGOT) 33 U/L (5-34); Albumin 3.5 g/dL (3.5-5.0); Alkaline Phosphatase 163 U/L (40-150); Anion Gap 10 mmol/L (10-20); BUN (Urea Nitrogen) 37 mg/dL (9.8-20.1); Bilirubin, Total 0.7 mg/dL (0.2-1.2); Calc. Creatinine Clearance 0 mL/min (70-130); Calcium 9.1 mg/dL (7.8-10.44); Carbon Dioxide 33 mmol/L (22-29); Chloride 103 mmol/L (98-107); Estimated GFR-MDRD 62; Globulin 3.2 g/dL (2.4-3.5); Glucose 86 mg/dL (70-105); Potassium 3.7 mmol/L (3.5-5.1); Protein, Total 6.7 g/dL (6.0-8.3); Sodium 142 mmol/L (136-145)
--- NOTE | 2017-12-16 11:42 | RAD ---
TWO VIEWS OF THE CHEST: Comparison: 05-17-17 History: Dyspnea. FINDINGS: Two views of the chest shows an enlarged but stable cardiomediastinal silhouette. There is a small le ft pleural effusion. No consolidation or mass are seen. IMPRESSION: Cardiomegaly with small left pleural effusion. POS: [facility]
[2017-12-16 12:08] LABS: CKMB 2.4 ng/mL (0-6.6); Troponin I 0.011 ng/mL (< 0.028)
[2017-12-16] MEDS ORDERED: Furosemide 40 MG/4 ML VIAL ONE (12:33)
--- NOTE | 2017-12-16 14:07 | PDOC.FPRHP ---
- History of Present Illness Chief Complaint: Fluid History of Present Illness: Ms. Scott is a 57YO AAF w/ a PMH significant for CHF with preserved EF, pulmonary HTN, HTN, and severe tricuscpid regurgitation who presented to the ED today with a chief complaint of too much fluid. She states that she first noticed that her fluid was starting to build up around the first of November and that since about November 18, she has gained around 20 pounds. She came to the ED around that time and was sent home because she was told the fluid buildup was not enough to keep her in the hospital. However, she finally got to the point where she could no longer move around without getting overly fatigued and short of breath so she decided to come to the ED again today. She states that she has tried to limit her fluid and salt intake and is taking all of her medications as prescribed. She does endorse some PND and orthopnea but denies any fever/ chills, chest pain or cough. ED Course: Patient was given lasix 40mg IV in the ED. A CXR & ECG were also done. - Allergies/Adverse Reactions Allergies Allergy/AdvReac Type Severity Reaction Status Date / Time No Known Allergies Allergy Verified 06/08/17 18:44 - Home Medications Medication Instructions Recorded Confirmed Type Aspirin [Aspirin Chewable Tablet] 81 mg PO DAILY #30 tab 05/20/17 12/16/17 Rx Levothyroxine Sodium [Synthroid] 75 mcg PO 0600 #30 tab 05/20/17 12/16/17 Rx Albuterol Sulfate [Proair HFA] 2 puff INH Q4HR PRN 06/09/17 12/16/17 History Furosemide [Lasix] 40 mg PO DAILY-AC #30 tab 07/01/17 12/16/17 Rx Lisinopril [Zestril] 2.5 mg PO DAILY #30 tab 07/01/17 12/16/17 Rx - History PMHx:CHF w/ preserved EF, Severe tricuspid regurgitation, pulmonary HTN, HTN, DMII, hypothyroidism, COPD PSHx: thyroidectomy, Left lumpectomy FHx: Mother - h/o breast cancer, HTN - in several family members Social: Current smoker, ~8 cigarettes/day - Review of Systems General: reports: weight/appetite/sleep changes, fatigue. denies: fever/chills Eyes: denies: vision changes Respiratory: reports: shortness of breath. denies: cough (especially with exertion), congestion Cardiovascular: reports: palpitation, edema, paroxysmal nocturnal dyspnea, orthopnea. denies: chest pain Gastrointestinal: reports: nausea, abdominal pain. denies: vomiting Genitourinary: denies: incontinence, dysuria, polyuria Skin: denies: rashes, lesions Musculoskeletal: reports: pain (B/L extremeties tender to palpation) Neurological: denies: numbness - Vital signs BP: 97/68 HR: 86 RR: 23 Tmax: 98.5 Pox: 94% on RA Wt: 84 kg - Physical Exam Constitutional: NAD -Constitutional: Patient sitting up in tripod position but was very pleasant and able to answer questions without getting short of breath. HEENT: normocephalic and atraumatic, PERRLA, EOMI, conjunctiva clear, grossly normal hearing, oropharynx clear -Neck: + JVD Heart: RRR, normal S1/S2, no murmurs/rubs/gallops -Heart: 2+ pitting edema up to knees in B/L LEs -Lungs: Poor air movement with minimal wheezing in left upper lobe. -Abdomen: Severely tense & distended abdomen with pitting edema in B/L flanks. Pain to palpation in the left flank. Musculoskeletal: ROM grossly normal Neurological: no focal deficit, CN II-XII intact Skin: no rash/lesions Psychiatric: normal mood and affect, good judgment and insight, intact recent and remote memory FMR H&P: Results - Labs Result Diagrams: 12/16/17 11:05 12/16/17 11:05 Lab results: WBC 5.2 thou/uL (4.8-10.8) 12/16/17 11:05 Hgb 14.9 g/dL (12.0-16.0) 12/16/17 11:05 Hct 49.4 % (36.0-47.0) H 12/16/17 11:05 MCV 85.5 fL (78.0-98.0) 12/16/17 11:05 Plt Count 181 thou/uL (130-400) 12/16/17 11:05 Neutrophils % 54.6 % (42.0-75.0) 12/16/17 11:05 Sodium 142 mmol/L (136-145) 12/16/17 11:05 Potassium 3.7 mmol/L (3.5-5.1) 12/16/17 11:05 Chloride 103 mmol/L (98-107) 12/16/17 11:05 Carbon Dioxide 33 mmol/L (22-29) H 12/16/17 11:05 BUN 37 mg/dL (9.8-20.1) H 12/16/17 11:05 Creatinine 1.11 mg/dL (0.6-1.1) H 12/16/17 11:05 Glucose 86 mg/dL (70-105) 12/16/17 11:05 Calcium 9.1 mg/dL (7.8-10.44) 12/16/17 11:05 Total Bilirubin 0.7 mg/dL (0.2-1.2) 12/16/17 11:05 AST 33 U/L (5-34) 12/16/17 11:05 ALT 27 U/L (8-55) 12/16/17 11:05 Alkaline Phosphatase 163 U/L (40-150) H 12/16/17 11:05 CK-MB (CK-2) 2.4 ng/mL (0-6.6) 12/16/17 11:00 B-Natriuretic Peptide 805.2 pg/mL (0-100) H 12/16/17 11:00 Serum Total Protein 6.7 g/dL (6.0-8.3) 12/16/17 11:05 Albumin 3.5 g/dL (3.5-5.0) 12/16/17 11:05 - EKG Interpretation EKG: NSR, poor RV conduction - Radiology Interpretation Chest x-ray Status: report reviewed by me Additional comment: Small L-sided pleural effusion FMR H&P: A/P - Problem List (1) Acute exacerbation of congestive heart failure Current Visit: Yes Status: Acute Priority: High Code(s): I50.9 - HEART FAILURE, UNSPECIFIED Qualifiers: Heart failure type: diastolic Qualified Code(s): I50.33 - Acute on chronic diastolic (congestive) heart failure Assessment and Plan: - Will admit patient to telemetry & give a dose of 40mg IV lasix at 1700. - Will get strict I's & O's & daily weight checks. - Will restrict fluid intake to 1500mL/day. - Will continue on 40mg IV lasix BID starting tomorrow. - Will order a TTE to get a better idea of her current heart function. - (2) ALICIA (acute kidney injury) Current Visit: Yes Status: Acute Code(s): N17.9 - ACUTE KIDNEY FAILURE, UNSPECIFIED Assessment and Plan: - BUN/Cr of 37/1.11. Likely prerenal 2/2 CHF. - Will order a urine urea to r/o any intrinsic causes. - Will continue to monitor with AM BMPs. (3) CHF (congestive heart failure) Current Visit: Yes Status: Chronic Code(s): I50.9 - HEART FAILURE, UNSPECIFIED Qualifiers: Heart failure type: diastolic Heart failure chronicity: chronic Qualified Code(s): I50.32 - Chronic diastolic (congestive) heart failure Assessment and Plan: - Will resume home dose of lisinopril 2.5mg PO QD. - Echo ordered & will consult cardiology in the AM. (4) Tricuspid valve regurgitation Current Visit: Yes Status: Chronic Code(s): I07.1 - RHEUMATIC TRICUSPID INSUFFICIENCY Qualifiers: Cardiac valve disease etiology: etiology unspecified Qualified Code(s): I07.1 - Rheumatic tricuspid insufficiency Assessment and Plan: - Will consult cardiology in the AM as patient may be a candidate for valve replacement. (5) Pulmonary hypertension Current Visit: Yes Status: Chronic Code(s): I27.20 - PULMONARY HYPERTENSION , UNSPECIFIED Assessment and Plan: Aware. (6) Hypothyroidism Current Visit: Yes Status: Chronic Code(s): E03.9 - HYPOTHYROIDISM, UNSPECIFIED Qualifiers: Hypothyroidism type: acquired Qualified Code(s): E03.9 - Hypothyroidism, unspecified Assessment and Plan: - Will resume home dose of synthroid 75mcg PO QD. (7) COPD (chronic obstructive pulmonary disease) Current Visit: Yes Status: Chronic (8) Hypertension Current Visit: No Status: Chronic Code(s): I10 - ESSENTIAL (PRIMARY) HYPERTENSION Qualifiers: Hypertension type: essential hypertension Qualified Code(s): I10 - Essential (primary) hypertension Assessment and Plan: - Patient's BP has actually been low since admission in the 90/60s. Will continue to monitor as we continue to diurese her. - Will resume lisinopril 2.5 mg PO in the AM. (9) Diabetes mellitus type 2 in nonobese Current Visit: Yes Status: Acute Code(s): E11.9 - TYPE 2 DIABETES MELLITUS WITHOUT COMPLICATIONS Assessment and Plan: - Patient reports she is no longer diabetic and was taken off of metformin. - Will check a Hgb A1c with AM labs. (10) Tobacco abuse Current Visit: Yes Status: Chronic Code(s): Z72.0 - TOBACCO USE Assessment and Plan: - Will job placement counselor patient on need to quit smoking. FMR H&P: Upper Level - Pertinent history Cassie Scott is a 57 year old female with a history of HFPrEF who presents to the ED with a chief complaint of fluid overload and weight gain. Patient states she was directed to the ED after being seen at [facility] earlier this morning with these symptoms. She reports increased abdominal distention, worsened bilateral lower extremity edema, decreased exercise tolerance, orthopnea, paroxysmal nocturnal dyspnea, and fatigue. She report compliance with her medications and with fluid restriction. She states that she tries to follow up a salt restriction, although she works at a [employer] typically eats from there. She was seen in the Emergency Department about one month ago, where she was given Lasix 80 mg IV and discharged home with PO Lasix. Her most recent echocardiogram ([facility]) revealed EF 50-55%, severe tricuspid regurgitation, right atrial enlargement, and pulmonary hypertension. - Pertinent findings Vitals: T: 97.6 RR: 16 P: 84 BP: 102/75 SpO2: 96% on RA wt: 84.99 kg ( 76.6 kg in November 19, 2017) General: Alert and oriented in no apparent distress Eyes: extraocular muscles intact; Heart: regular rate and rhythm, no murmurs, rubs, or gallops. Lungs: clear to auscultation bilaterally. Abdomen: significant fluid distention; non-tender. Extremities: 2+ pitting edema extending up towards both thighs CXR: significant for cardiomegaly. Otherwise no acute cardiopulmonary process. Significant labs: BUN - 37, Cr - 1.11, Trop - 0.011, BNP - 805 - Plan Date/Time: 12/16/17 Lani Benton, have evaluated this patient and agree with findings/plan as outlined by senior internal auditor resident. Pertinent changes/additions are listed here. 1. Acute exacerbation of heart failure with preserved ejection fraction - likely precipitated by diet noncompliance vs. worsening of pt's disease. - we will admit patient to telemetry as an inpatient - continue diuresis with Lasix IV 40 mg BID - strict intake/output, daily weights, fluid restriction, low sodium diet. Supplemental oxygen as needed. - repeat transthoracic echocardiogram 2. Cardiorenal syndrome, Type 1 - continue diruesis - will repeat BP in AM 3. Heart failure with preserved ejection fraction - continue Lisinopril and Lasix. - same as #1 4. Severe Tricuspid Regurgitation - repeat TTE - consider cardiology consult in AM. 5. Pulmonary Hypertension - pt has been on Revatio in the pat - not currently requiring oxygen. - will continue to monitor. 6. Chronic Obstructive Pulmonary Disease - continue Dulera - smoking cessation strongly advised 6. Hypothyroidism - continue levothyroxine 7. Diabetes Mellitus - per history, although pt states that she no longer takes medications for diabetes - will check an A1C 8. Hypertension - continue Lisinopril Attending Addendum - Attending Addendum Date/Time: 12/16/172110 I personally evaluated the patient and discussed the management with Dr. Melendez. I agree with and repeated the History, Examination, Assessment and Plan documented above with any addition or exceptions noted below. Pt in no acute distress. RRR, prominent AMALIA lower sternal border, low pitched, CV waves with JVD and +HJR , prominent pitting edema legs -> abdomen. Insp crackles bilateral bases, scant wheezes, good air movement BS+, NTTP, no palp organomegaly Labs and imaging reviewed. ECG with low voltage, poor RWP. No acute ST/T wave changes. Lasix IV, TTE, hold antihypertensives in light of ALICIA and BP. DVT ppx.
[2017-12-16] MEDS ORDERED: Ondansetron ODT 4 MG TAB PO PRN (15:03)
[2017-12-16] MEDS ORDERED: PROVENTIL INHALER 6.7 G (200 INHALATIONS) INH PRN (15:09)
[2017-12-16] MEDS ORDERED: Furosemide 100 MG/10 ML VIAL SLOW IVP SCH (17:00)
[2017-12-16] MEDS ORDERED: Furosemide 40 MG/4 ML VIAL SLOW IVP SCH (17:00)
[2017-12-16 18:55] VITALS: BMI 30.8
--- NOTE | 2017-12-17 05:15 | PDOC.FM ---
- Subjective Subjective: Patient states that she still feels very bloated. Per nurse, lasix was held this AM 2/2 hypotension. Patient denies any orthostasis associated with this. Denies any chest pain or SOB. Is just very uncomfortable 2/2 fluid overload. - Objective MAR Reviewed: Yes Vital Signs & Weight: Vital Signs (12 hours) Temp Pulse Resp BP Pulse Ox 12/17/17 04:00 97.5 F L 84 18 79/55 L 95 12/16/17 23:42 97.8 F 88 18 86/66 L 95 12/16/17 20:00 97.8 F 88 18 102/67 92 L I&O: 12/15/17 12/16/17 12/17/17 06:59 06:59 06:59 Output Total 500 Balance -500 Result Diagrams: 12/16/17 11:05 12/17/17 04:59 EKG Reviewed by me: Yes Radiology Reviewed by me: Yes (NSR, poor RV conduction) Phys Exam - Physical Examination Constitutional: NAD Neck: full ROM + JVD Respiratory: no rales, wheezing present Diffuse expiratory wheezing throughout with poor air flow Cardiovascular: RRR, no significant murmur + JVD, tricuspid murmur tense abdominal 2/2 significant distension Musculoskeletal: edema present (2+ edema present in B/L LEs) Neurological: moves all 4 limbs Psychiatric: normal affect, A&O x 3 Skin: no rash Dx/Plan (1) Acute exacerbation of congestive heart failure Code(s): I50.9 - HEART FAILURE, UNSPECIFIED Status: Acute Qualifiers: Heart failure type: diastolic Qualified Code(s): I50.33 - Acute on chronic diastolic (congestive) heart failure Plan: - Will continue with diuresis with IV lasix 40mg BID as long as BPs are stable. - Will continue strict I&Os & daily weight checks. (2) ALICIA (acute kidney injury) Code(s): N17.9 - ACUTE KIDNEY FAILURE, UNSPECIFIED Status: Resolved Plan: - Resolved as AM BUN/Cr were 34/0.83. - Will continue to monitor with AM BMPs. (3) CHF (congestive heart failure) Code(s): I50.9 - HEART FAILURE, UNSPECIFIED Status: Chronic Qualifiers: Heart failure type: diastolic Heart failure chronicity: chronic Qualified Code(s): I50.32 - Chronic diastolic (congestive) heart failure Plan: - Will get a TTE today to get a better idea of current heart function. - Will consult cardiology today. (4) Tricuspid valve regurgitation Code(s): I07.1 - RHEUMATIC TRICUSPID INSUFFICIENCY Status: Chronic Qualifiers: Cardiac valve disease etiology: etiology unspecified Qualified Code(s): I07.1 - Rheumatic tricuspid insufficiency Plan: - Consulting cardiology today as patient may be a candidate for tricuspid valve replacement. (5) Pulmonary hypertension Code(s): I27.20 - PULMONARY HYPERTENSION, UNSPECIFIED Status: Chronic Plan: - Aware. (6) Hypothyroidism Code(s): E03.9 - HYPOTHYROIDISM, UNSPECIFIED Status: Chronic Qualifiers: Hypothyroidism type: acquired Qualified Code(s): E03.9 - Hypothyroidism, unspecified Plan: - Will continue with home dose of synthroid 75mcg QD. (7) COPD (chronic obstructive pulmonary disease) Status: Chronic Plan: - Patient needs to be evaluated for need for home O2. - Will check an baseline ABG & start on 1L of O2 after if needed. Goal is to get Po2 between 60-70. - Plan to resume Dulera QD while in hospital & albuterol PRN. - Compliance may be an issue 2/2 inability to pay for this so will try to find a cheaper option for her to go home with. (8) Hypertension Code(s): I10 - ESSENTIAL (PRIMARY) HYPERTENSION Status: Chronic Qualifiers: Hypertension type: essential hypertension Qualified Code(s): I10 - Essential (primary) hypertension Plan: - BP has been low and well-controlled since admission. - Will continue to monitor as we proceed with diuresis. - Will continue with home dose of lisinopril 2.5 mg QD. (9) Diabetes mellitus type 2 in nonobese Code(s): E11.9 - TYPE 2 DIABETES MELLITUS WITHOUT COMPLICATIONS Status: Chronic Plan: Will resume home dose of metformin 500mg PO QD. (10) Tobacco abuse Code(s): Z72.0 - TOBACCO USE Status: Chronic Plan: - Aware. - Will corporate counsel patient regarding her need to quit smoking.
[2017-12-17 05:18] LABS: Hemoglobin A1c 6.6 % (4.0-6.0)
[2017-12-17 05:32] LABS: Anion Gap 12 mmol/L (10-20); BUN (Urea Nitrogen) 34 mg/dL (9.8-20.1); Calc. Creatinine Clearance 105 mL/min (70-130); Calcium 9.1 mg/dL (7.8-10.44); Carbon Dioxide 31 mmol/L (22-29); Chloride 103 mmol/L (98-107); Estimated GFR-MDRD 86; Glucose 94 mg/dL (70-105); Potassium 4.3 mmol/L (3.5-5.1); Sodium 142 mmol/L (136-145)
[2017-12-17] MEDS ORDERED: Furosemide 40 MG/4 ML VIAL SLOW IVP SCH ×3 (06:00→14:00)
[2017-12-17] MEDS: Levothyroxine Sodium 75 MCG TAB PO SCH (06:19)
[2017-12-17] MEDS ORDERED: Furosemide 40 MG/4 ML VIAL SLOW IVP ONE (06:40)
[2017-12-17] MEDS ORDERED: Enoxaparin Sodium 30 MG/0.3 ML SYRINGE SC SCH (09:00)
[2017-12-17] MEDS ORDERED: Lisinopril 2.5 MG TAB PO SCH (09:00)
[2017-12-17] MEDS ORDERED: Spiriva 18 MCG CAP (Box of 5 Caps) INH ONE (11:15)
--- NOTE | 2017-12-17 11:28 | ADD-PRG ---
DATE OF SERVICE: 12/17/2017 ADDENDUM Please add this is an addendum to the note of Dr. Tammy Melendez. Mrs. West is a pleasant 57-year-old black female who was admitted with increasing peripheral gaye a. She was mildly short of breath, but not overtly so. In reviewing some of her older records, it i s clear she has severe COPD. We did find an old ABG demonstrating a pO2 in the low 40s and a pCO2 of around 57 with normal pH, demonstrating compensated respiratory acidosis. Most of her edema is like ly related to cor pulmonale as she has an [id number] history of smoking. I would recommend we will start her on gradually increasing nasal cannula O2 starting at 1 liter. We need to maintain a pO2 o f between 60 and 70, but not above. Also, according to her history, she did at one point in the past to use oxygen, but evidently could not afford it.
[2017-12-17 12:28] LABS: CO2 Tension 58.9 mmHg (35.0-45.0); pH, Arterial 7.38 (7.35-7.45)
[2017-12-17 12:33] LABS: Actual Bicarbonate (HCO3a) 33.7 mEq/L (22-28); Base Excess (BEa) 6.3 mEq/L (-2.0 to +3.0); O2 Tension (PaO2) 43.2 mmHg (80.0-100.0)
[2017-12-17 12:34] LABS: Hemoglobin (Hb) 15.6 g/dL (12.0-16.0)
[2017-12-17 12:35] LABS: Analyzer IN Cardio OR; Calcium, Ionized 1.2 mmol/L (1.12-1.30); Puncture Site LRA
[2017-12-17] MEDS: Furosemide 100 MG/10 ML VIAL SLOW IVP SCH ×2 (13:46→18:03)
[2017-12-17] MEDS: Ipratropium Bromide 2.5 ml Neb NEB SCH ×3 (13:49→23:26)
--- NOTE | 2017-12-17 15:42 | CON ---
DATE OF CONSULTATION: 12/17/2017 HISTORY OF PRESENT ILLNESS: Patient is a 57-year-old woman who presents with an increasing edema. The patient has a long history of severe tricuspid regurgitation and pulmonary hypertension. The patient suffers from COPD and sleep apnea. The patient has been admitted on several occasions with right- sided heart failure. The patient states she recently developed increasing lower extremity swelling. She states she has been compliant with her medications. PAST MEDICAL HISTORY: 1. Pulmonary hypertension. 2. Chronic obstructive pulmonary disease. 3. Sleep apnea. 4. History of hypothyroidism. 5. Diabetes mellitus. 6. Hypertension. 7. COPD. PAST SURGICAL HISTORY: Thyroidectomy and lumpectomy. FAMILY HISTORY: No strong family history of heart disease. SOCIAL HISTORY: The patient continues to smoke. ALLERGIES: No known drug allergies. MEDICATIONS: Synthroid 75 mcg daily, Lasix 40 daily, aspirin 81 daily, lisinopril 2.5 daily. PHYSICAL EXAMINATION: GENERAL: This is an ill-appearing woman in no acute distress. VITAL SIGNS: Blood pressure 115/73. NECK: Showed jugular venous distention in the jaw. LUNGS: She have coarse breath sounds bilateral. HEART: Regular rate and rhythm, normal S1, S2 with a 3/6 systolic murmur heard throughout the precordium. ABDOMEN: Markedly distended. EXTREMITIES: Showed severe bilateral edema. LABORATORY DATA AND IMAGING DATA: Sodium 142, potassium 4.3, chloride 103, bicarbonate 31, BUN 34, creatinine is 0.83. Her BNP was 805. Her white blood cell count was 5.2, hemoglobin 14.9, hematocrit 49.4 and platelets were 181. Her EKG reveals her to have normal sinus rhythm with right ventricular hypertrophy and poor R-wave progression. IMPRESSION: 1. Anasarca. 2. History of pulmonary hypertension. 3. Chronic obstructive pulmonary disease. 4. Severe tricuspid regurgitation. 5. Hypertension. 6. Diabetes mellitus. 7. Tobacco abuse. This patient presents with anasarca. She states she has been compliant with her Lasix. She has not had close medical followup. From a cardiac standpoint, we would treat the patient on IV Lasix. She has already undergone an evaluation for pulmonary hypertension including a V/Q scan and has been diagnosed with COPD. We will check the patient's echocardiogram and follow this patient with your hospitalization. REGINALD
[2017-12-17 16:31] LABS: pH, Arterial 7.35 (7.35-7.45)
[2017-12-17 16:33] LABS: Actual Bicarbonate (HCO3a) 32.8 mEq/L (22-28); Base Excess (BEa) 5.1 mEq/L (-2.0 to +3.0); CO2 Tension 60.8 mmHg (35.0-45.0); Hemoglobin (Hb) 15.2 g/dL (12.0-16.0); O2 Tension (PaO2) 63.9 mmHg (80.0-100.0)
[2017-12-17 16:34] LABS: Calcium, Ionized 1.2 mmol/L (1.12-1.30); Puncture Site RBA
[2017-12-18 05:17] LABS: Anion Gap 12 mmol/L (10-20); BUN (Urea Nitrogen) 33 mg/dL (9.8-20.1); Calc. Creatinine Clearance 107 mL/min (70-130); Carbon Dioxide 31 mmol/L (22-29); Chloride 103 mmol/L (98-107); Estimated GFR-MDRD 89; Glucose 104 mg/dL (70-105); Potassium 3.9 mmol/L (3.5-5.1); Sodium 142 mmol/L (136-145)
[2017-12-18] MEDS: Levothyroxine Sodium 75 MCG TAB PO SCH (05:18)
[2017-12-18] MEDS: Furosemide 100 MG/10 ML VIAL SLOW IVP SCH ×2 (05:18→16:14)
[2017-12-18] MEDS: Ipratropium Bromide 2.5 ml Neb NEB SCH ×3 (06:16→18:11)
[2017-12-18] MEDS ORDERED: Spiriva 18 MCG CAP (Box of 5 Caps) INH SCH (07:00)
--- NOTE | 2017-12-18 07:18 | PDOC.FM ---
- Subjective Subjective: Patient reports that her breathing is a little easier with the oxygen and the breathing treatments. She reports that the swelling is a little improved. She denies any chest pain. - Objective MAR Reviewed: Yes Vital Signs & Weight: Vital Signs (12 hours) Temp Pulse Resp BP BP Pulse Ox 12/18/17 06:16 87 18 87 L 12/18/17 03:02 97.6 F 90 20 97/63 90 L 12/18/17 00:44 90 L 12/18/17 00:10 97.4 F L 86 20 106/75 93 L 12/17/17 23:26 81 16 12/17/17 20:00 97.7 F 84 20 93 L 12/17/17 19:19 97.7 F 84 20 95/70 93 L Weight Weight 85.185 kg I&O: 12/17/17 12/18/17 12/19/17 06:59 06:59 06:59 Intake Total 400 Output Total 500 2150 Balance -500 -1750 Result Diagrams: 12/16/17 11:05 12/18/17 04:23 <Elise Nelson - Last Filed: 12/18/17 07:16> - Objective Vital Signs & Weight: Vital Signs (12 hours) Temp Pulse Resp BP BP Pulse Ox 12/18/17 07:48 97.9 F 83 20 90/62 93 L 12/18/17 06:16 87 18 87 L 12/18/17 03:02 97.6 F 90 20 97/63 90 L 12/18/17 00:44 90 L 12/18/17 00:10 97.4 F L 86 20 106/75 93 L 12/17/17 23:26 81 16 Weight Weight 85.185 kg I&O: 12/17/17 12/18/17 12/19/17 06:59 06:59 06:59 Intake Total 400 Output Total 500 2150 Balance -500 -1750 Result Diagrams: 12/16/17 11:05 12/18/17 04:23 <Syeda Tovar - Last Filed: 12/18/17 10:27> Phys Exam - Physical Examination Constitutional: NAD (on 2 L O2) HEENT: moist MMs, sclera anicteric Respiratory: no rales, no rhonchi, wheezing present Cardiovascular: RRR, no significant murmur, no rub Gastrointestinal: soft, non-tender, no distention, positive bowel sounds Musculoskeletal: edema present (1+ pitting edema in BLE) Neurological: non-focal, moves all 4 limbs Psychiatric: normal affect, A&O x 3 Skin: normal turgor, cap refill <2 seconds <Elise Nelson - Last Filed: 12/18/17 07:16> Dx/Plan (1) Acute on chronic diastolic (congestive) heart failure Code(s): I50.33 - ACUTE ON CHRONIC DIASTOLIC (CONGESTIVE) HEART FAILURE Status : Resolved (2) Acute on chronic respiratory failure with hypoxia and hypercapnia Code(s): J96.21 - ACUTE AND CHRONIC RESPIRATORY FAILURE WITH HYPOXIA; J96.22 - ACUTE AND CHRONIC RESPIRATORY FAILURE WITH HYPERCAPNIA Status: Resolved (3) Cor pulmonale (chronic) Code(s): I27.81 - COR PULMONALE (CHRONIC) Status: Acute (4) ALICIA (acute kidney injury) Code(s): N17.9 - ACUTE KIDNEY FAILURE, UNSPECIFIED Status: Resolved (5) COPD (chronic obstructive pulmonary disease) Status: Chronic QualifierTitle: COPD type: unspecified COPD Qualified Code(s): J44.9 - Chronic obstructive pulmonary disease, unspecified (6) Diabetes mellitus type 2 in nonobese Code(s): E11.9 - TYPE 2 DIABETES MELLITUS WITHOUT COMPLICATIONS Status: Chronic (7) Hypothyroidism Code(s): E03.9 - HYPOTHYROIDISM, UNSPECIFIED Status: Chronic QualifierTitle: Hypothyroidism type: acquired Qualified Code(s): E03.9 - Hypothyroidism, unspecified (8) Pulmonary hypertension Code(s): I27.20 - PULMONARY HYPERTENSION, UNSPECIFIED Status: Chronic (9) Tobacco abuse Code(s): Z72.0 - TOBACCO USE Status: Chronic (10) Anasarca Code(s): R60.1 - GENERALIZED EDEMA Status: Acute (11) Hypertension Code(s): I10 - ESSENTIAL (PRIMARY) HYPERTENSION Status: Chronic QualifierTitle: Hypertension type: essential hypertension Qualified Code( s): I10 - Essential (primary) hypertension (12) Severe tricuspid regurgitation Code(s): I07.1 - RHEUMATIC TRICUSPID INSUFFICIENCY Status: Chronic - Plan Plan: Acute on Chronic HFpEF Exacerbation Echo showed EF of 55-60% and evidence of Cor Pulmonale - Will continue with diuresis with IV lasix 80mg BID - Will continue strict I&Os & daily weight checks. - Fluid restrict to 1500 mL/day - Cardiology on board, appreciate recs Acute on Chronic Hypoxic Hypercapnic Respiratory Failure 2/2 COPD, Cor Pulmonale ABG showed 7.38/58.9/43.2 Patient will require home O2 as this is a chronic issue. She has a prior ABG revealing a similar PO2. - Started pt on 2L O2 and rechecked ABG with goal PO2 between 60-70 and recheck of her PO2 was 63.9 - CM consult for home O2 - O2 requirement of 2L - F/U with pulm outpatient ALICIA (acute kidney injury), resolved Resolved as AM Cr was 0.81. - Will continue to monitor with AM BMPs. Severe Tricuspid valve regurgitation This is likely 2/2 Cor Pulmonale - Cards on board, appreciate recs Hypothyroidism - Will continue with home dose of synthroid 75mcg QD. COPD (chronic obstructive pulmonary disease) - Patient needs home O2. - Dulera QD while in hospital & albuterol PRN. Hypertension - BP has been low and well-controlled since admission. - Will continue to monitor as we proceed with diuresis. - Hold home dose of lisinopril 2.5 mg QD. Diabetes Mellitus Type 2 - Will resume home dose of metformin 500mg PO QD. Tobacco abuse - behavioral health counselor patient regarding her need to quit smoking. <Elise Nelson - Last Filed: 12/18/17 07:16> Attending Addendum - Attending Addendum Date/Time: 12/18/17 1026 I personally evaluated the patient and discussed the management with Dr. Nelson. I agree with the History, Examination, Assessment and Plan documented above with any addition or exceptions noted below. The patient's edema is reportedly better but she still needs additional diuresis. Will continue IV lasix. Case mgmt is working on dme equipment but pt may not be able to get O2. <Syeda Tovar - Last Filed: 12/18/17 10:27>
[2017-12-18] MEDS: Enoxaparin Sodium 40 MG/0.4 ML SYRINGE SC SCH (09:32)
[2017-12-18] MEDS: metFORMIN 500 MG TAB PO SCH ×2 (09:32→09:35)
--- NOTE | 2017-12-18 14:24 | EKG ---
Test Reason : Blood Pressure : / mmHG Vent. Rate : 085 BPM Atrial Rate : 085 BPM P-R Int : 184 ms QRS Dur : 082 ms QT Int : 402 ms P-R-T Axes : 005 176 017 degrees QTc Int : 478 ms Normal sinus rhythm Right ventricular hypertrophy Possible Inferior infarct , age undetermined Cannot rule out Anterior infarct , age undetermined Abnormal ECG Confirmed by LISBETH STEPHENSON ([id number]), web editor KODY JESSICA ([id number]) on 12/18/2017 2:24:19 PM Referred By: Confirmed By:LISBETH STEPHENSON
[2017-12-19] MEDS: Ipratropium Bromide 2.5 ml Neb NEB SCH ×4 (00:03→19:02)
--- NOTE | 2017-12-19 05:39 | PDOC.FM ---
- Subjective Subjective: Patient says she slept fine last night. Says she is breathing fine with the O2 and denies any chest pain. Does endorse about 10/10 throbbing pain in the dorsum of her left foot that she says began this about 1 hour prior to exam. Says it is constant and does not recall hitting her foot on anything. Upon questioning patient endorses a possible PMH of gout and says she was on medicine to take for this everyday that was stopped after her last hospitalization. - Objective MAR Reviewed: Yes Vital Signs & Weight: Vital Signs (12 hours) Temp Pulse Resp BP Pulse Ox 12/19/17 03:24 98.7 F 80 20 87/57 L 91 L 12/19/17 01:25 92 L 12/19/17 00:03 85 12 12/18/17 23:07 97.3 F L 80 20 89/66 L 95 12/18/17 20:59 97.3 F L 86 20 94 L 12/18/17 19:31 97.3 F L 86 20 113/74 94 L 12/18/17 18:11 87 16 92 L Weight Weight 83.37 kg I&O: 12/17/17 12/18/17 12/19/17 06:59 06:59 06:59 Intake Total 400 600 Output Total 500 2150 1850 Balance -500 -3200 -1250 Result Diagrams: 12/16/17 11:05 12/19/17 04:59 <Tammy Melendez - Last Filed: 12/19/17 07:41> - Objective Vital Signs & Weight: Vital Signs (12 hours) Temp Pulse Resp BP BP Pulse Ox 12/19/17 12:04 92 18 92 L 12/19/17 11:30 97.8 F 90 18 96/53 L 90 L 12/19/17 08:25 97.6 F 87 16 97 12/19/17 07:31 97.6 F 87 16 95/60 95 12/19/17 06:36 92 L 12/19/17 06:34 105 H 20 92 L 12/19/17 06:00 90/56 L 12/19/17 03:24 98.7 F 80 20 87/57 L 91 L 12/19/17 01:25 92 L Weight Weight 83.37 kg I&O: 12/18/17 12/19/1718 06:59 06:59 06:59 Intake Total 400 600 540 Output Total 0590 0900 859 Balance -5320 -5510 -260 Result Diagrams: 12/16/17 11:05 12/19/17 04:59 <GuySyeda - Last Filed: 12/19/17 12:57> Phys Exam - Physical Examination In mild distress 2/2 L foot pain. Expiratory wheezing on the left. Rales in LLL. 1+ pitting edema in B/L LEs Cardiovascular: RRR Systolic flow murmur heard throughout. Tense, distended abdomen slightly improved from previous exam. Musculoskeletal: edema present warm, erythematous dorsum of left multi slide machine tender to palaption Neurological: moves all 4 limbs Psychiatric: normal affect, A&O x 3 Skin: no rash <Tammy Melendez - Last Filed: 12/19/17 07:41> Dx/Plan (1) Acute exacerbation of congestive heart failure Code(s): I50.9 - HEART FAILURE, UNSPECIFIED Status: Acute QualifierTitle: Heart failure type: diastolic Qualified Code(s): I50.33 - Acute on chronic diastolic (congestive) heart failure (2) ALICIA (acute kidney injury) Code(s): N17.9 - ACUTE KIDNEY FAILURE, UNSPECIFIED Status: Resolved (3) CHF (congestive heart failure) Code(s): I50.9 - HEART FAILURE, UNSPECIFIED Status: Chronic QualifierTitle: Heart failure type: diastolic Heart failure chronicity: chronic Qualified Code(s): I50.32 - Chronic diastolic (congestive) heart failure (4) Tricuspid valve regurgitation Code(s): I07.1 - RHEUMATIC TRICUSPID INSUFFICIENCY Status: Chronic QualifierTitle: Cardiac valve disease etiology: etiology unspecified Qualified Code(s): I07.1 - Rheumatic tricuspid insufficiency Plan: (5) Pulmonary hypertension Code(s): I27.20 - PULMONARY HYPERTENSION, UNSPECIFIED Status: Chronic (6) Hypothyroidism Code(s): E03.9 - HYPOTHYROIDISM, UNSPECIFIED Status: Chronic QualifierTitle: Hypothyroidism type: acquired Qualified Code(s): E03.9 - Hypothyroidism, unspecified Plan: (7) COPD (chronic obstructive pulmonary disease) Status: Chronic QualifierTitle: COPD type: unspecified COPD Qualified Code(s): J44.9 - Chronic obstructive pulmonary disease, unspecified Plan: (8) Hypertension Code(s): I10 - ESSENTIAL (PRIMARY) HYPERTENSION Status: Chronic QualifierTitle: Hypertension type: essential hypertension Qualified Code( s): I10 - Essential (primary) hypertension Plan: (9) Diabetes mellitus type 2 in nonobese Code(s): E11.9 - TYPE 2 DIABETES MELLITUS WITHOUT COMPLICATIONS Status: Chronic (10) Tobacco abuse Code(s): Z72.0 - TOBACCO USE Status: Chronic (11) Foot pain, left Code(s): M79.672 - PAIN IN LEFT FOOT Status: Acute - Plan Plan: 1. Acute on Chronic HFpEF Exacerbation - Echo on 12/17 showed EF of 55-60% and evidence of Cor Pulmonale. - Will continue diuresis with IV lasix 80mg BID. Output was almost 2L overnight & Wt is down 2kg from yesterday. - Will continue strict I&Os & daily weight checks. - Will continue with fluid restrict to 1500 mL/day. - Cardiology on board. 2. Acute on Chronic Hypoxic Hypercapnic Respiratory Failure 2/2 COPD, Cor Pulmonale - baseline ABG on 12/17 showed 7.38/58.9/43.2 but recheck after ~2hrs on 2L showed PO2 of 63.9. - Patient will require home O2 as this is a chronic issue. She has a prior ABG revealing a similar PO2. - CM on board for help getting her home O2. Per CM, would like to be notified of planned discharge date to make sure this is in place. However, may not be possible 2/2 patient's inability to pay. - Will continue on 2L via nasal canula. - Will advise to f/u with pulmonology as an outpatient. 3. ALICIA (acute kidney injury), resolved - Resolved as AM Cr was 0.76. - Will continue to monitor with AM BMPs. 4. L foot pain - Sudden onset and severity of pain raises suspicion for a possible gout flare. Per patient, she used to be on a QD medicine for gout prior to her last hospital admission when this medication was discontinued. Per chart review, patient was prescribed allopurinol following her discharge in 05/30. - Will start short course of indomethacin for pain control. - Will plan to restart previous dose of allopurinol 100mg QD following discharge. 5. Severe Tricuspid valve regurgitation - This is likely 2/2 Cor Pulmonale. - Cards on board, appreciate recs. 6. Hypothyroidism - Will continue with home dose of synthroid 75mcg QD. 7. COPD (chronic obstructive pulmonary disease) - Patient needs home O2 due to reasons described above. - Will continue with Dulera QD & albuterol PRN while in hospital. 8. Hypertension - BP has been low and well-controlled since admission. Was in the 80s/50s over the course of yesterday. Was up to 90/56 on exam this AM. - Will continue to monitor as we proceed with diuresis. - Will continue to hold home dose of lisinopril 2.5 mg QD. 9. Diabetes Mellitus Type 2 - A1c of 6.6 - Has been well-controlled so far this visit. - Will continue home dose of metformin 500mg PO QD. 10. 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 <Tammy Melendez - Last Filed: 12/19/17 07:41> Attending Addendum - Attending Addendum Date/Time: 12/19/17 6668 I personally evaluated the patient and discussed the management with Dr. Melendez. I agree with the History, Examination, Assessment and Plan documented above with any addition or exceptions noted below. The patient will continue getting lasix. LE swelling is not back to baseline yet. She remains on oxygen. Will f/u with pulmonology as an outpt. Regarding foot pain, foot is mildly warm and there is not much erythema. Pt has history of gout. Added indomethacin to treat likely gout flair. <Syeda Tovar - Last Filed: 12/19/17 12:57>
[2017-12-19] MEDS: Furosemide 100 MG/10 ML VIAL SLOW IVP SCH ×2 (06:03→13:11)
[2017-12-19] MEDS: Levothyroxine Sodium 75 MCG TAB PO SCH (06:03)
[2017-12-19 06:11] LABS: Anion Gap 8 mmol/L (10-20); BUN (Urea Nitrogen) 28 mg/dL (9.8-20.1); Calc. Creatinine Clearance 110 mL/min (70-130); Carbon Dioxide 37 mmol/L (22-29); Chloride 101 mmol/L (98-107); Estimated GFR-MDRD Greater than 90; Glucose 88 mg/dL (70-105); Potassium 3.9 mmol/L (3.5-5.1); Sodium 142 mmol/L (136-145)
[2017-12-19] MEDS: Indomethacin 25 mg Capsule PO SCH ×3 (08:16→20:22)
[2017-12-19] MEDS: Acetaminophen 325 MG TAB PO PRN ×2 (08:17→13:10)
[2017-12-19] MEDS: metFORMIN 500 MG TAB PO SCH (08:17)
[2017-12-19] MEDS: Enoxaparin Sodium 40 MG/0.4 ML SYRINGE SC SCH (08:17)
--- NOTE | 2017-12-19 13:41 | PDOC.EVN ---
Event Note - Event Note Event Note: Spoke with patient about her refusing her metformin for the last 2 days. Patient states that she was taken off metformin in May after being discharged from the hospital and that all of her blood sugars have been normal since admission. I informed her of her diabetes status and recommended that she be on some form of antihyperglycemic medication. Explained that although her accuchecks have been WNLs for the most part, her A1c was within the diabetes range at 6.6. Patient seemed to be in denial regarding her diagnosis. Will approach her one more time today regarding this issue and will advise her to f/ u with [facility] regarding her diabetes care.
[2017-12-20] MEDS: Ipratropium Bromide 2.5 ml Neb NEB SCH ×4 (00:33→20:31)
--- NOTE | 2017-12-20 05:05 | PDOC.FM ---
- Subjective Subjective: Ms Scott is doing well this morning. She reports improvement in her SOB and LE edema. She is still not to baseline swelling. She reports being confused about home O2 and the plan for discharge. Denies and fevers, chills overnight - Objective Vital Signs & Weight: Vital Signs (12 hours) Temp Pulse Resp BP BP Pulse Ox 12/20/17 04:50 98.3 F 20 78/49 L 89 L 12/20/17 00:33 92 L 12/20/17 00:21 97.8 F 77 20 82/56 L 91 L 12/19/17 20:22 97.9 F 82 14 92 L 12/19/17 20:18 97.9 F 82 14 84/51 L 92 L 12/19/17 19:03 93 L 12/19/17 19:02 93 L Weight Weight 83.824 kg I&O: 12/18/17 12/19/17 12/20/17 06:59 06:59 06:59 Intake Total 400 600 890 Output Total 2150 1850 1350 Balance -1750 -1250 -460 Result Diagrams: 12/16/17 11:05 12/20/17 04:47 <Cyn Brito - Last Filed: 12/20/17 11:47> - Objective Vital Signs & Weight: Vital Signs (12 hours) Temp Pulse Resp BP BP Pulse Ox 12/20/17 12:00 97.5 F L 74 16 100/66 95 12/20/17 11:36 90 14 93 L 12/20/17 08:00 97.4 F L 73 18 90/59 L 95 12/20/17 07:15 93 16 94 L 12/20/17 06:28 93 L 12/20/17 06:24 92/65 12/20/17 04:50 98.3 F 20 78/49 L 89 L Weight Weight 83.824 kg I&O: 12/19/17 12/20/17 12/21/17 06:59 06:59 06:59 Intake Total 600 1130 240 Output Total 1850 1350 100 Balance -1250 -220 140 Result Diagrams: 12/16/17 11:05 12/20/17 04:47 <Cuauhtemoc Conteh - Last Filed: 12/20/17 15:09> Dx/Plan (1) Acute exacerbation of congestive heart failure Code(s): I50.9 - HEART FAILURE, UNSPECIFIED Status: Acute QualifierTitle: Heart failure type: diastolic Qualified Code(s): I50.33 - Acute on chronic diastolic (congestive) heart failure (2) COPD exacerbation Code(s): J44.1 - CHRONIC OBSTRUCTIVE PULMONARY DISEASE W (ACUTE) EXACERBATION Status: Acute (3) Gout flare Code(s): M10.9 - GOUT, UNSPECIFIED Status: Acute (4) Cor pulmonale (chronic) Code(s): I27.81 - COR PULMONALE (CHRONIC) Status: Acute (5) Foot pain, left Code(s): M79.672 - PAIN IN LEFT FOOT Status: Acute (6) CHF (congestive heart failure) Code(s): I50.9 - HEART FAILURE, UNSPECIFIED Status: Chronic QualifierTitle: Heart failure type: diastolic Heart failure chronicity: chronic Qualified Code(s): I50.32 - Chronic diastolic (congestive) heart failure (7) COPD (chronic obstructive pulmonary disease) Status: Chronic QualifierTitle: COPD type: unspecified COPD Qualified Code(s): J44.9 - Chronic obstructive pulmonary disease, unspecified (8) Diabetes mellitus type 2 in nonobese Code(s): E11.9 - TYPE 2 DIABETES MELLITUS WITHOUT COMPLICATIONS Status: Chronic (9) Hypothyroidism Code(s): E03.9 - HYPOTHYROIDISM, UNSPECIFIED Status: Chronic QualifierTitle: Hypothyroidism type: acquired Qualified Code(s): E03.9 - Hypothyroidism, unspecified (10) Pulmonary hypertension Code(s): I27.20 - PULMONARY HYPERTENSION, UNSPECIFIED Status: Chronic (11) Tobacco abuse Code(s): Z72.0 - TOBACCO USE Status: Chronic (12) Tricuspid valve regurgitation Code(s): I07.1 - RHEUMATIC TRICUSPID INSUFFICIENCY Status: Chronic QualifierTitle: Cardiac valve disease etiology: etiology unspecified Qualified Code(s): I07.1 - Rheumatic tricuspid insufficiency (13) ALICIA (acute kidney injury) Code(s): N17.9 - ACUTE KIDNEY FAILURE, UNSPECIFIED Status: Resolved (14) Compensated respiratory acidosis Code(s): E87.2 - ACIDOSIS Status: Acute (15) Hyperuricemia Code(s): E79.0 - HYPERURICEMIA W/O SIGNS OF INFLAM ARTHRIT AND TOPHACEOUS DIS Status: Acute (16) Hypertension Code(s): I10 - ESSENTIAL (PRIMARY) HYPERTENSION Status: Chronic QualifierTitle: Hypertension type: essential hypertension Qualified Code( s): I10 - Essential (primary) hypertension - Plan Plan: Cassie Scott is a 57 year old female with a history of HFPrEF who presents to the ED with a chief complaint of fluid overload and weight gain. 1. Acute on Chronic HFpEF Exacerbation - Echo on 12/17 showed EF of 55-60% and evidence of Cor Pulmonale. - Continue diuresis with IV lasix 80mg BID. Output was almost 2L overnight - Strict I&Os & daily weight checks. - Fluid restrict to 1500 mL/day. - Cardiology on board. - LE swelling is not back to baseline yet. She remains on oxygen - Dry wt 140, 7lb wt loss since admission - Consider increasing lasix to 120 2. Acute on Chronic Hypoxic Hypercapnic Respiratory Failure 2/2 COPD, Cor Pulmonale - baseline ABG on 12/17 showed 7.38/58.9/43.2 but recheck after ~2hrs on 2L showed PO2 of 63.9. - Patient will require home O2 as this is a chronic issue. She has a prior ABG revealing a similar PO2. - CM on board for help getting her home O2. Per CM, would like to be notified of planned discharge date to make sure this is in place. However, may not be possible 2/2 patient's inability to pay. - Continue on 2.5L via nasal canula. - F/u with pulmonology as an outpatient. 3. ALICIA (acute kidney injury), resolved - Will continue to monitor with AM BMPs. 4. L foot pain - Sudden onset and severity of pain raises suspicion for a possible gout flare. Per patient, she used to be on a QD medicine for gout prior to her last hospital admission when this medication was discontinued. Per chart review, patient was prescribed allopurinol following her discharge in 05/30. - Started short course of indomethacin for pain control. - Plan to restart previous dose of allopurinol 100mg QD following discharge. - Foot is mildly warm and there is not much erythema - Pt refused PT eval, PT signed off with rec to continue walking program - Reconsult PT for eval 5. Severe Tricuspid valve regurgitation - This is likely 2/2 Cor Pulmonale. - Cards on board, appreciate recs. 6. Hypothyroidism - Continue home dose synthroid 75mcg QD. 7. COPD (chronic obstructive pulmonary disease) - Patient needs home O2 due to reasons described above. - Continue with Dulera QD & albuterol PRN while in hospital. 8. Hypertension - BP has been low and well-controlled since admission. Was in the 80s/50s over the course of yesterday. Was up to 90/56 on exam this AM. - Continue to monitor as we proceed with diuresis. - Continue to hold home dose of lisinopril 2.5 mg QD. 9. Diabetes Mellitus Type 2 - A1c of 6.6 - Well-controlled so far this visit. - Continue home dose metformin 500mg PO QD. - Patient has been refusing Meformin last 3 days 10. 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 11. Hypotension - BPs 70-80/40-60 since admission - Continue diuresis and monitor BP <Cyn Brito - Last Filed: 12/20/17 11:47> Attending Addendum - Attending Addendum Date/Time: 12/20/17 3906 I personally evaluated the patient and discussed the management with Dr. Brito I agree with the History, Examination, Assessment and Plan documented above with any addition or exceptions noted below.Patient with right sided heart failure consistent with Cor pulmonale with rec increased diuretic and watch BP. Maintain fluid and salt restriction continue to monitor I&O. Attempting to arrange for home oxygen supplemental therapy. <Cuauhtemoc Conteh - Last Filed: 12/20/17 15:09>
[2017-12-20 05:34] LABS: Anion Gap 13 mmol/L (10-20); BUN (Urea Nitrogen) 31 mg/dL (9.8-20.1); Calc. Creatinine Clearance 77 mL/min (70-130); Calcium 8.8 mg/dL (7.8-10.44); Carbon Dioxide 33 mmol/L (22-29); Chloride 100 mmol/L (98-107); Estimated GFR-MDRD 63; Glucose 118 mg/dL (70-105); Potassium 3.8 mmol/L (3.5-5.1); Sodium 142 mmol/L (136-145)
[2017-12-20] MEDS: Levothyroxine Sodium 75 MCG TAB PO SCH (06:22)
[2017-12-20] MEDS: Furosemide 100 MG/10 ML VIAL SLOW IVP SCH ×2 (06:24→14:14)
--- NOTE | 2017-12-20 07:19 | PDOC.CTH ---
Cardiology Progress Note - Subjective Pt continues with anasarca. Pt stopped using CPAP. Continues to smoke. - Objective Vital Signs Temp Pulse Resp BP BP Pulse Ox 12/20/17 06:28 93 L 12/20/17 06:24 92/65 12/20/17 04:50 98.3 F 20 78/49 L 89 L 12/20/17 00:33 92 L 12/20/17 00:21 97.8 F 77 20 82/56 L 91 L 12/19/17 20:22 97.9 F 82 14 92 L 12/19/17 20:18 97.9 F 82 14 84/51 L 92 L Weight 184 lb 12.8 oz 12/19/17 12/20/17 12/21/17 06:59 06:59 06:59 Intake Total 600 1130 Output Total 1850 1350 Balance -1250 -220 - Physical Examination General/Neuro: alert & oriented x3, NAD Neck: no JVD present Lungs: CTA Heart: RRR Abdomen: other: ((+) fluid wave) Extremities: + edema B - Labs Result Diagrams: 12/16/17 11:05 12/20/17 04:47 Troponin/CKMB CK-MB (CK-2) 2.4 ng/mL (0-6.6) 12/16/17 11:00 Troponin I 0.011 ng/mL (< 0.028) 12/16/17 11:00 - Assessment/Plan 1. RV failure 2. COPD 3. Severe TR 4. Tobacco abuse 5. IGNACIO 6. Anasarca Pt has been lost to fu since last admission cntinue lasix ON lasix and metolozone Prognosis guarded
[2017-12-20] MEDS: Metolazone 5 MG TAB PO SCH (08:32)
[2017-12-20] MEDS: Indomethacin 25 mg Capsule PO SCH ×3 (08:32→20:36)
[2017-12-20] MEDS: metFORMIN 500 MG TAB PO SCH (08:32)
[2017-12-20] MEDS: Enoxaparin Sodium 40 MG/0.4 ML SYRINGE SC SCH (08:33)
[2017-12-21] MEDS: Ipratropium Bromide 2.5 ml Neb NEB SCH ×4 (00:26→18:27)
--- NOTE | 2017-12-21 04:54 | PDOC.FM ---
- Subjective Subjective: Ms Scott is a 57yo female with hx of HFrEF who presents to the ED with fluid overload and weight gain. She continues to tolerate diuresis. Denies lightheadedness, dizziness, SOB. Nursing notified us of a mass on her lower left flank but she denies any pain or tenderness in this area. - Objective MAR Reviewed: Yes Vital Signs & Weight: Vital Signs (12 hours) Temp Pulse Resp BP Pulse Ox 12/21/17 03:06 98 F 76 20 93/57 L 93 L 12/21/17 00:26 75 16 99 12/20/17 23:11 97.9 F 74 20 95/54 L 95 12/20/17 20:35 99.2 F 75 22 H 96 12/20/17 20:31 78 18 98 12/20/17 19:21 99.2 F 83 22 H 98/69 96 Weight Weight 83.824 kg I&O: 12/19/17 12/20/17 12/21/17 06:59 06:59 06:59 Intake Total 600 1130 1240 Output Total 1850 1350 1000 Balance -1250 -220 240 Result Diagrams: 12/16/17 11:05 12/21/17 04:42 <Cyn Brito - Last Filed: 12/21/17 12:48> - Objective Vital Signs & Weight: Vital Signs (12 hours) Temp Pulse Resp BP BP Pulse Ox 12/21/17 11:25 97.7 F 81 16 99/63 95 12/21/17 08:00 97.5 F L 81 20 94 L 12/21/17 07:53 97.5 F L 81 20 81/62 L 94 L 12/21/17 07:52 80 14 12/21/17 03:06 98 F 76 20 93/57 L 93 L Weight Weight 83.121 kg I&O: 12/20/17 12/21/17 12/22/17 06:59 06:59 06:59 Intake Total 1130 1240 875 Output Total 1350 1000 850 Balance -220 240 25 Result Diagrams: 12/16/17 11:05 12/21/17 04:42 <Randy Huertas - Last Filed: 12/21/17 12:57> Phys Exam - Physical Examination Constitutional: NAD HEENT: moist MMs Respiratory: wheezing present Cardiovascular: RRR Gastrointestinal: non-tender, positive bowel sounds very distended Musculoskeletal: pulses present, edema present Neurological: non-focal Psychiatric: normal affect, A&O x 3 Skin: cap refill <2 seconds Deviation from normal: superficial mass suspicous for dependent edema lower left flank <Cyn Brito - Last Filed: 12/21/17 12:48> Dx/Plan (1) Acute exacerbation of congestive heart failure Code(s): I50.9 - HEART FAILURE, UNSPECIFIED Status: Acute QualifierTitle: Heart failure type: diastolic Qualified Code(s): I50.33 - Acute on chronic diastolic (congestive) heart failure (2) COPD exacerbation Code(s): J44.1 - CHRONIC OBSTRUCTIVE PULMONARY DISEASE W (ACUTE) EXACERBATION Status: Acute (3) Gout flare Code(s): M10.9 - GOUT, UNSPECIFIED Status: Acute (4) Cor pulmonale (chronic) Code(s): I27.81 - COR PULMONALE (CHRONIC) Status: Acute (5) Foot pain, left Code(s): M79.672 - PAIN IN LEFT FOOT Status: Acute (6) CHF (congestive heart failure) Code(s): I50.9 - HEART FAILURE, UNSPECIFIED Status: Chronic QualifierTitle: Heart failure type: diastolic Heart failure chronicity: chronic Qualified Code(s): I50.32 - Chronic diastolic (congestive) heart failure (7) COPD (chronic obstructive pulmonary disease) Status: Chronic QualifierTitle: COPD type: unspecified COPD Qualified Code(s): J44.9 - Chronic obstructive pulmonary disease, unspecified (8) Diabetes mellitus type 2 in nonobese Code(s): E11.9 - TYPE 2 DIABETES MELLITUS WITHOUT COMPLICATIONS Status: Chronic (9) Hypothyroidism Code(s): E03.9 - HYPOTHYROIDISM, UNSPECIFIED Status: Chronic QualifierTitle: Hypothyroidism type: acquired Qualified Code(s): E03.9 - Hypothyroidism, unspecified (10) Pulmonary hypertension Code(s): I27.20 - PULMONARY HYPERTENSION, UNSPECIFIED Status: Chronic (11) Tobacco abuse Code(s): Z72.0 - TOBACCO USE Status: Chronic (12) Tricuspid valve regurgitation Code(s): I07.1 - RHEUMATIC TRICUSPID INSUFFICIENCY Status: Chronic QualifierTitle: Cardiac valve disease etiology: etiology unspecified Qualified Code(s): I07.1 - Rheumatic tricuspid insufficiency (13) ALICIA (acute kidney injury) Code(s): N17.9 - ACUTE KIDNEY FAILURE, UNSPECIFIED Status: Resolved (14) Compensated respiratory acidosis Code(s): E87.2 - ACIDOSIS Status: Acute (15) Hyperuricemia Code(s): E79.0 - HYPERURICEMIA W/O SIGNS OF INFLAM ARTHRIT AND TOPHACEOUS DIS Status: Acute (16) Hypertension Code(s): I10 - ESSENTIAL (PRIMARY) HYPERTENSION Status: Chronic QualifierTitle: Hypertension type: essential hypertension Qualified Code( s): I10 - Essential (primary) hypertension - Plan Plan: Cassie Scott is a 57 year old female with a history of HFPrEF who presents to the ED with a chief complaint of fluid overload and weight gain. 1. Acute on Chronic HFpEF Exacerbation - Echo on 12/17 showed EF of 55-60% and evidence of Cor Pulmonale. - Continue diuresis with IV lasix 80mg BID. - Strict I&Os & daily weight checks. - Fluid restrict to 1500 mL/day. - Cardiology on board. - LE swelling is not back to baseline yet. She remains on oxygen - Dry wt 140, 7lb wt loss since admission - Output only 1L overnight, net +240 2. Acute on Chronic Hypoxic Hypercapnic Respiratory Failure 2/2 COPD, Cor Pulmonale - baseline ABG on 12/17 showed 7.38/58.9/43.2 but recheck after ~2hrs on 2L showed PO2 of 63.9. - Patient will require home O2 as this is a chronic issue. She has a prior ABG revealing a similar PO2. - CM on board for help getting her home O2. Per , would like to be notified of planned discharge date to make sure this is in place. However, may not be possible 2/2 patient's inability to pay. - Continue on 2.5L via nasal canula. - F/u with pulmonology as an outpatient. 3. ALICIA (acute kidney injury) - Cr 1.26 from 1.09 - Will continue to monitor with AM BMPs. 4. Left flank mass - Likely due to dependent edema but will obtain US to verify 5. L foot pain - Sudden onset and severity of pain raises suspicion for a possible gout flare. Per patient, she used to be on a QD medicine for gout prior to her last hospital admission when this medication was discontinued. Per chart review, patient was prescribed allopurinol following her discharge in 05/30. - Started short course of indomethacin for pain control. - Plan to restart previous dose of allopurinol 100mg QD following discharge. - Foot is mildly warm and there is not much erythema - Pt refused PT eval, PT signed off with rec to continue walking program 6. Severe Tricuspid valve regurgitation - This is likely 2/2 Cor Pulmonale. - Cards on board, appreciate recs. 7. Hypothyroidism - Continue home dose synthroid 75mcg QD. 8. COPD (chronic obstructive pulmonary disease) - Patient needs home O2 due to reasons described above. - Continue with Dulera QD & albuterol PRN while in hospital. 9. Hypertension - BP has been low and well-controlled since admission. Was in the 80s/50s over the course of yesterday. Was up to 90/56 on exam this AM. - Continue to monitor as we proceed with diuresis. - Continue to hold home dose of lisinopril 2.5 mg QD. 10. Diabetes Mellitus Type 2 - A1c of 6.6 - Well-controlled so far this visit. - D/c metformin 500mg PO QD, pt has refused for 4 days - Patient has been refusing Meformin, spoke with her about the benefits 11. Tobacco abuse - [employer] patient regarding her need to quit smoking. 12. Hypotension - Monitor BP and adjust diuresis as necessary <Cyn Brito - Last Filed: 12/21/17 12:48> (1) Acute exacerbation of congestive heart failure Code(s): I50.9 - HEART FAILURE, UNSPECIFIED Status: Acute Qualifiers: Heart failure type: diastolic Qualified Code(s): I50.33 - Acute on chronic diastolic (congestive) heart failure (2) ALICIA (acute kidney injury) Code(s): N17.9 - ACUTE KIDNEY FAILURE, UNSPECIFIED Status: Resolved (3) CHF (congestive heart failure) Code(s): I50.9 - HEART FAILURE, UNSPECIFIED Status: Chronic Qualifiers: Heart failure type: diastolic Heart failure chronicity: chronic Qualified Code(s): I50.32 - Chronic diastolic (congestive) heart failure (4) Tricuspid valve regurgitation Code(s): I07.1 - RHEUMATIC TRICUSPID INSUFFICIENCY Status: Chronic Qualifiers: Cardiac valve disease etiology: etiology unspecified Qualified Code(s): I07.1 - Rheumatic tricuspid insufficiency (5) Pulmonary hypertension Code(s): I27.20 - PULMONARY HYPERTENSION, UNSPECIFIED Status: Chronic (6) Hypothyroidism Code(s): E03.9 - HYPOTHYROIDISM, UNSPECIFIED Status: Chronic Qualifiers: Hypothyroidism type: acquired Qualified Code(s): E03.9 - Hypothyroidism, unspecified (7) COPD (chronic obstructive pulmonary disease) Status: Chronic Qualifiers: COPD type: unspecified COPD Qualified Code(s): J44.9 - Chronic obstructive pulmonary disease, unspecified (8) Hypertension Code(s): I10 - ESSENTIAL (PRIMARY) HYPERTENSION Status: Chronic Qualifiers: Hypertension type: essential hypertension Qualified Code(s): I10 - Essential (primary) hypertension (9) Diabetes mellitus type 2 in nonobese Code(s): E11.9 - TYPE 2 DIABETES MELLITUS WITHOUT COMPLICATIONS Status: Chronic (10) Tobacco abuse Code(s): Z72.0 - TOBACCO USE Status: Chronic <Randy Huertas - Last Filed: 12/21/17 12:57> Attending Addendum - Attending Addendum Date/Time: 12/21/17 1254 I personally evaluated the patient and discussed the management with Dr. Brito and team. I agree with and repeated the History, Examination, Assessment and Plan documented above with any addition or exceptions noted below. Marked improvement in edema and symptoms since I saw her on admission. No JVD, she has bibasilar crackles, and less prominent murmur. She has some edema of the left posterior thorax, which has apparently gone down with respositioning and I would like to just monitor for now. Her BUN/cr is uptrending. Continue diuresis, monitor for azotemia. O2 for chr resp failure 2/2 pulm htn/copd. d/ w cards concerning TV. DVT/GI ppx. <Randy Huertas - Last Filed: 12/21/17 12:57>
[2017-12-21 05:39] LABS: Anion Gap 12 mmol/L (10-20); BUN (Urea Nitrogen) 36 mg/dL (9.8-20.1); Calc. Creatinine Clearance 67 mL/min (70-130); Calcium 9.1 mg/dL (7.8-10.44); Carbon Dioxide 35 mmol/L (22-29); Chloride 98 mmol/L (98-107); Estimated GFR-MDRD 53; Glucose 102 mg/dL (70-105); Potassium 3.8 mmol/L (3.5-5.1); Sodium 141 mmol/L (136-145)
[2017-12-21] MEDS: Furosemide 100 MG/10 ML VIAL SLOW IVP SCH ×2 (05:57→14:20)
[2017-12-21] MEDS: Levothyroxine Sodium 75 MCG TAB PO SCH (05:57)
--- NOTE | 2017-12-21 06:47 | PDOC.CTH ---
Cardiology Progress Note - Subjective Feels better overall. Less SOB and edema - Objective Vital Signs Temp Pulse Resp BP Pulse Ox 12/21/17 03:06 98 F 76 20 93/57 L 93 L 12/21/17 00:26 75 16 99 12/20/17 23:11 97.9 F 74 20 95/54 L 95 12/20/17 20:35 99.2 F 75 22 H 96 12/20/17 20:31 78 18 98 12/20/17 19:21 99.2 F 83 22 H 98/69 96 Weight 184 lb 12.8 oz 12/19/17 12/20/17 12/21/17 06:59 06:59 06:59 Intake Total 600 1130 1240 Output Total 1850 1350 1000 Balance -1250 -220 240 - Physical Examination General/Neuro: alert & oriented x3, NAD Neck: no JVD present Lungs: CTA, unlabored respirations Heart: RRR Abdomen: other: (fluid wave present) Extremities: + edema B - Labs Result Diagrams: 12/16/17 11:05 12/21/17 04:42 Troponin/CKMB CK-MB (CK-2) 2.4 ng/mL (0-6.6) 12/16/17 11:00 Troponin I 0.011 ng/mL (< 0.028) 12/16/17 11:00 - Assessment/Plan 1. RV failure 2. COPD 3. Severe TR 4. Tobacco abuse 5. IGNACIO 6. Anasarca Most likely right sided. Angio has not been performed to assess left sided pressures. Pt with ongoing tobacco use and likely IGNACIO Continue with diuresis May need placement Will have recurrent hospitalizations until her underlying condition improves which is not faye sánchezt he above. I discussed transfer to [facility] for pulmonary HTN. Pt not interested. Pt with transportation and social support difficulty prognosis poor
[2017-12-21] MEDS: Indomethacin 25 mg Capsule PO SCH ×3 (07:34→21:13)
[2017-12-21] MEDS: Enoxaparin Sodium 40 MG/0.4 ML SYRINGE SC SCH (07:34)
[2017-12-21] MEDS: Metolazone 5 MG TAB PO SCH (07:34)
[2017-12-21] MEDS: metFORMIN 500 MG TAB PO SCH (07:35)
[2017-12-22] MEDS: Ipratropium Bromide 2.5 ml Neb NEB SCH ×4 (00:06→18:25)
--- NOTE | 2017-12-22 05:19 | PDOC.FM ---
- Subjective Subjective: Ms Scott is a 57yo female with hx of HFrEF who presents to the ED with fluid overload and weight gain. She continues to tolerate diuresis. Denies lightheadedness, dizziness, SOB, difficulty walking. Per nursing mass resolved but she reports it is now back. - Objective MAR Reviewed: Yes Vital Signs & Weight: Vital Signs (12 hours) Temp Pulse Resp BP Pulse Ox 12/22/17 03:45 97.7 F 74 20 94/63 97 12/22/17 00:36 9 L 12/22/17 00:09 96.5 F L 81 20 79/51 L 100 12/22/17 00:06 76 16 12/21/17 21:19 97.7 F 77 20 96 12/21/17 19:25 97.7 F 77 20 83/61 L 96 12/21/17 18:27 81 20 93 L Weight Weight 83.121 kg I&O: 12/20/17 12/21/17 12/22/17 06:59 06:59 06:59 Intake Total 1130 1240 1225 Output Total 1350 1000 1850 Balance -220 240 -625 Result Diagrams: 12/16/17 11:05 12/22/17 04:58 <Cyn Brito - Last Filed: 12/22/17 11:45> - Objective Vital Signs & Weight: Vital Signs (12 hours) Temp Pulse Resp BP Pulse Ox 12/22/17 12:40 83 18 92 L 12/22/17 11:24 97.4 F L 76 18 83/61 L 95 12/22/17 08:15 97.4 F L 73 18 94 L 12/22/17 07:54 97.4 F L 73 18 87/57 L 94 L 12/22/17 06:37 78 16 92 L 12/22/17 03:45 97.7 F 74 20 94/63 97 Weight Weight 82.1 kg I&O: 12/21/17 12/22/17 12/23/17 06:59 06:59 06:59 Intake Total 1240 1325 Output Total 1000 2650 350 Balance 240 -1325 -350 Result Diagrams: 12/16/17 11:05 12/22/17 04:58 <Randy Huertas - Last Filed: 12/22/17 12:44> Phys Exam - Physical Examination Constitutional: NAD HEENT: moist MMs Neck: no JVD bibasilar crackles Cardiovascular: RRR Gastrointestinal: soft, positive bowel sounds distended Musculoskeletal: pulses present, edema present Neurological: moves all 4 limbs Psychiatric: normal affect, A&O x 3 Skin: cap refill <2 seconds <Cyn Brito - Last Filed: 12/22/17 11:45> Dx/Plan (1) Acute exacerbation of congestive heart failure Code(s): I50.9 - HEART FAILURE, UNSPECIFIED Status: Acute QualifierTitle: Heart failure type: diastolic Qualified Code(s): I50.33 - Acute on chronic diastolic (congestive) heart failure (2) COPD exacerbation Code(s): J44.1 - CHRONIC OBSTRUCTIVE PULMONARY DISEASE W (ACUTE) EXACERBATION Status: Acute (3) Gout flare Code(s): M10.9 - GOUT, UNSPECIFIED Status: Acute (4) Cor pulmonale (chronic) Code(s): I27.81 - COR PULMONALE (CHRONIC) Status: Acute (5) Foot pain, left Code(s): M79.672 - PAIN IN LEFT FOOT Status: Acute (6) CHF (congestive heart failure) Code(s): I50.9 - HEART FAILURE, UNSPECIFIED Status: Chronic QualifierTitle: Heart failure type: diastolic Heart failure chronicity: chronic Qualified Code(s): I50.32 - Chronic diastolic (congestive) heart failure (7) COPD (chronic obstructive pulmonary disease) Status: Chronic QualifierTitle: COPD type: unspecified COPD Qualified Code(s): J44.9 - Chronic obstructive pulmonary disease, unspecified (8) Diabetes mellitus type 2 in nonobese Code(s): E11.9 - TYPE 2 DIABETES MELLITUS WITHOUT COMPLICATIONS Status: Chronic (9) Hypothyroidism Code(s): E03.9 - HYPOTHYROIDISM, UNSPECIFIED Status: Chronic QualifierTitle: Hypothyroidism type: acquired Qualified Code(s): E03.9 - Hypothyroidism, unspecified (10) Pulmonary hypertension Code(s): I27.20 - PULMONARY HYPERTENSION, UNSPECIFIED Status: Chronic (11) Tobacco abuse Code(s): Z72.0 - TOBACCO USE Status: Chronic (12) Tricuspid valve regurgitation Code(s): I07.1 - RHEUMATIC TRICUSPID INSUFFICIENCY Status: Chronic QualifierTitle: Cardiac valve disease etiology: etiology unspecified Qualified Code(s): I07.1 - Rheumatic tricuspid insufficiency (13) ALICIA (acute kidney injury) Code(s): N17.9 - ACUTE KIDNEY FAILURE, UNSPECIFIED Status: Resolved (14) Compensated respiratory acidosis Code(s): E87.2 - ACIDOSIS Status: Acute Plan: Cassie Scott is a 57 year old female with a history of HFPrEF who presents to the ED with a chief complaint of fluid overload and weight gain. 1. Acute on Chronic HFpEF Exacerbation - Echo on 12/17 showed EF of 55-60% and evidence of Cor Pulmonale. - Continue diuresis with IV lasix 80mg BID. Output was almost 2L overnight - Strict I&Os & daily weight checks. - Fluid restrict to 1500 mL/day. - Cardiology on board. - LE swelling is not back to baseline yet. She remains on oxygen - Dry wt 140, 7lb wt loss since admission - Consider increasing lasix to 120 2. Acute on Chronic Hypoxic Hypercapnic Respiratory Failure 2/2 COPD, Cor Pulmonale - baseline ABG on 12/17 showed 7.38/58.9/43.2 but recheck after ~2hrs on 2L showed PO2 of 63.9. - Patient will require home O2 as this is a chronic issue. She has a prior ABG revealing a similar PO2. - CM on board for help getting her home O2. Per , would like to be notified of planned discharge date to make sure this is in place. However, may not be possible 2/2 patient's inability to pay. - Continue on 2.5L via nasal canula. - F/u with pulmonology as an outpatient. 3. ALICIA (acute kidney injury), resolved - Will continue to monitor with AM BMPs. 4. L foot pain - Sudden onset and severity of pain raises suspicion for a possible gout flare. Per patient, she used to be on a QD medicine for gout prior to her last hospital admission when this medication was discontinued. Per chart review, patient was prescribed allopurinol following her discharge in 05/30. - Started short course of indomethacin for pain control. - Plan to restart previous dose of allopurinol 100mg QD following discharge. - Foot is mildly warm and there is not much erythema - Pt refused PT eval, PT signed off with rec to continue walking program - Reconsult PT for eval 5. Severe Tricuspid valve regurgitation - This is likely 2/2 Cor Pulmonale. - Cards on board, appreciate recs. 6. Hypothyroidism - Continue home dose synthroid 75mcg QD. 7. COPD (chronic obstructive pulmonary disease) - Patient needs home O2 due to reasons described above. - Continue with Dulera QD & albuterol PRN while in hospital. 8. Hypertension - BP has been low and well-controlled since admission. Was in the 80s/50s over the course of yesterday. Was up to 90/56 on exam this AM. - Continue to monitor as we proceed with diuresis. - Continue to hold home dose of lisinopril 2.5 mg QD. 9. Diabetes Mellitus Type 2 - A1c of 6.6 - Well-controlled so far this visit. - Continue home dose metformin 500mg PO QD. - Patient has been refusing Meformin last 3 days 10. Tobacco abuse - [employer] patient regarding her need to quit smoking. 11. Hypotension - BPs 70-80/40-60 since admission - Continue diuresis and monitor BP (15) Hyperuricemia Code(s): E79.0 - HYPERURICEMIA W/O SIGNS OF INFLAM ARTHRIT AND TOPHACEOUS DIS Status: Acute (16) Hypertension Code(s): I10 - ESSENTIAL (PRIMARY) HYPERTENSION Status: Chronic QualifierTitle: Hypertension type: essential hypertension Qualified Code( s): I10 - Essential (primary) hypertension - Plan Plan: Cassie Scott is a 57 year old female with a history of HFPrEF who presents to the ED with a chief complaint of fluid overload and weight gain. 1. Acute on Chronic HFpEF Exacerbation - Echo on 12/17 showed EF of 55-60% and evidence of Cor Pulmonale. - Continue diuresis with IV lasix 80mg BID. - Strict I&Os & daily weight checks. - Fluid restrict to 1500 mL/day. - Cardiology on board. - LE swelling is not back to baseline yet. She remains on oxygen - Dry wt 140, 7lb wt loss since admission - Output only 1L overnight, net -670 - D/c Indomethacin she was taking for gout flare now that pain has resolved, hope to improve kidney function 2. Acute on Chronic Hypoxic Hypercapnic Respiratory Failure 2/2 COPD, Cor Pulmonale - baseline ABG on 12/17 showed 7.38/58.9/43.2 but recheck after ~2hrs on 2L showed PO2 of 63.9. - Patient will require home O2 as this is a chronic issue. She has a prior ABG revealing a similar PO2. - CM on board for help getting her home O2. Per CM, would like to be notified of planned discharge date to make sure this is in place. However, may not be possible 2/2 patient's inability to pay. - Continue on 2.5L via nasal canula. - F/u with pulmonology as an outpatient. 3. ALICIA (acute kidney injury) - Cr 1.26 from 1.09 - Will continue to monitor with AM BMPs. - D/c indomethacin as above 4. Left flank mass - Likely due to dependent edema but will obtain US to verify 5. L foot pain - resolved - Sudden onset and severity of pain raises suspicion for a possible gout flare. Per patient, she used to be on a QD medicine for gout prior to her last hospital admission when this medication was discontinued. Per chart review, patient was prescribed allopurinol following her discharge in 05/30. - Started short course of indomethacin for pain control. - Plan to restart previous dose of allopurinol 100mg QD following discharge. - Foot is mildly warm and there is not much erythema - Pt refused PT minalal, PT signed off with rec to continue walking program - D/c indomethacin as above 6. Severe Tricuspid valve regurgitation - This is likely 2/2 Cor Pulmonale. - Cards on board, appreciate recs. 7. Hypothyroidism - Continue home dose synthroid 75mcg QD. 8. COPD (chronic obstructive pulmonary disease) - Patient needs home O2 due to reasons described above. - Continue with Dulera QD & albuterol PRN while in hospital. 9. Hypertension - BP has been low and well-controlled since admission. Was in the 80s/50s over the course of yesterday. Was up to 90/56 on exam this AM. - Continue to monitor as we proceed with diuresis. - Continue to hold home dose of lisinopril 2.5 mg QD. 10. Diabetes Mellitus Type 2 - A1c of 6.6 - Well-controlled so far this visit. - D/c metformin 500mg PO QD, pt has refused for 4 days - Patient has been refusing Meformin, spoke with her about the benefits 11. Tobacco abuse - [employer] patient regarding her need to quit smoking. 12. Hypotension - Monitor BP and adjust diuresis as necessary Code Status: FULL DVT ppx: Lovenox GI ppx: None <Cyn Brito - Last Filed: 12/22/17 11:45> (1) Acute exacerbation of congestive heart failure Code(s): I50.9 - HEART FAILURE, UNSPECIFIED Status: Acute Qualifiers: Heart failure type: diastolic Qualified Code(s): I50.33 - Acute on chronic diastolic (congestive) heart failure (2) ALICIA (acute kidney injury) Code(s): N17.9 - ACUTE KIDNEY FAILURE, UNSPECIFIED Status: Resolved (3) CHF (congestive heart failure) Code(s): I50.9 - HEART FAILURE, UNSPECIFIED Status: Chronic Qualifiers: Heart failure type: diastolic Heart failure chronicity: chronic Qualified Code(s): I50.32 - Chronic diastolic (congestive) heart failure (4) Tricuspid valve regurgitation Code(s): I07.1 - RHEUMATIC TRICUSPID INSUFFICIENCY Status: Chronic Qualifiers: Cardiac valve disease etiology: etiology unspecified Qualified Code(s): I07.1 - Rheumatic tricuspid insufficiency (5) Pulmonary hypertension Code(s): I27.20 - PULMONARY HYPERTENSION, UNSPECIFIED Status: Chronic (6) Hypothyroidism Code(s): E03.9 - HYPOTHYROIDISM, UNSPECIFIED Status: Chronic Qualifiers: Hypothyroidism type: acquired Qualified Code(s): E03.9 - Hypothyroidism, unspecified (7) COPD (chronic obstructive pulmonary disease) Status: Chronic Qualifiers: COPD type: unspecified COPD Qualified Code(s): J44.9 - Chronic obstructive pulmonary disease, unspecified (8) Hypertension Code(s): I10 - ESSENTIAL (PRIMARY) HYPERTENSION Status: Chronic Qualifiers: Hypertension type: essential hypertension Qualified Code(s): I10 - Essential (primary) hypertension (9) Diabetes mellitus type 2 in nonobese Code(s): E11.9 - TYPE 2 DIABETES MELLITUS WITHOUT COMPLICATIONS Status: Chronic (10) Tobacco abuse Code(s): Z72.0 - TOBACCO USE Status: Chronic <Randy Huertas - Last Filed: 12/22/17 12:44> Attending Addendum - Attending Addendum Date/Time: 12/22/17 1243 I personally evaluated the patient and discussed the management with Dr. Brito and team. I agree with and repeated the History, Examination, Assessment and Plan documented above with any addition or exceptions noted below. Pt tired, but no cp/sob today. No c/o "side mass" from yesterday. Exam largely unchanged today, still with pronounced hypervolemia of abdomen and BLE. I am afraid we are reading about the maximum we can concerning diuresis in light of her pressures. Currently low suspicion for cardiogenic shock. Will monitor closely. Of note, she has declined transfer to [facility] for more specialized treatment. <Randy Huertas - Last Filed: 12/22/17 12:44>
[2017-12-22 05:35] LABS: BUN (Urea Nitrogen) 43 mg/dL (9.8-20.1); Calc. Creatinine Clearance 63 mL/min (70-130); Estimated GFR-MDRD 51; Glucose 102 mg/dL (70-105)
[2017-12-22 05:45] LABS: Anion Gap 13 mmol/L (10-20); Carbon Dioxide 36 mmol/L (22-29); Chloride 96 mmol/L (98-107); Potassium 3.9 mmol/L (3.5-5.1); Sodium 141 mmol/L (136-145)
[2017-12-22] MEDS: Furosemide 100 MG/10 ML VIAL SLOW IVP SCH ×2 (06:08→14:13)
[2017-12-22] MEDS: Levothyroxine Sodium 75 MCG TAB PO SCH (06:09)
--- NOTE | 2017-12-22 06:50 | PDOC.CTH ---
Cardiology Progress Note - Subjective Feels better. Increase in urine output - Objective Vital Signs Temp Pulse Resp BP Pulse Ox 12/22/17 06:37 78 16 92 L 12/22/17 03:45 97.7 F 74 20 94/63 97 12/22/17 00:36 9 L 12/22/17 00:09 96.5 F L 81 20 79/51 L 100 12/22/17 00:06 76 16 12/21/17 21:19 97.7 F 77 20 96 12/21/17 19:25 97.7 F 77 20 83/61 L 96 Weight 181 lb 12/20/17 12/21/17 12/22/17 06:59 06:59 06:59 Intake Total 1130 1240 1225 Output Total 1350 1000 1850 Balance -220 240 -625 - Physical Examination General/Neuro: alert & oriented x3, NAD Neck: no JVD present Lungs: CTA Heart: RRR Abdomen: other: (distended abdomen) Extremities: + femoral B - Labs Result Diagrams: 12/16/17 11:05 12/22/17 04:58 Troponin/CKMB CK-MB (CK-2) 2.4 ng/mL (0-6.6) 12/16/17 11:00 Troponin I 0.011 ng/mL (< 0.028) 12/16/17 11:00 - Assessment/Plan 1. RV failure 2. COPD 3. Severe TR 4. Tobacco abuse 5. IGNACIO 6. Anasarca Pt with some diuresis overnight Change lasix to toresemide considered but IV toresemide not available continue with metolazone Guarded prognosis
[2017-12-22] MEDS: Enoxaparin Sodium 40 MG/0.4 ML SYRINGE SC SCH (09:34)
[2017-12-22] MEDS: Indomethacin 25 mg Capsule PO SCH (09:35)
[2017-12-22] MEDS: Metolazone 5 MG TAB PO SCH (09:35)
[2017-12-23] MEDS: Ipratropium Bromide 2.5 ml Neb NEB SCH ×4 (00:30→19:41)
--- NOTE | 2017-12-23 05:03 | PDOC.FM ---
- Subjective Subjective: Ms Scott is a 57yo female with hx of HFrEF who presents to the ED with fluid overload and weight gain. She continues to tolerate diuresis. Denies lightheadedness, dizziness, SOB, difficulty walking. Spoke with her about her concerns about visiting [place] for her pulmonary HTN. She is frustrated that her COPD was not treated and it has resulted in this. She agreed that she would not like to keep returning to the hospital and understands that the specialists in [place] may have options for her to keep from doing so. - Objective MAR Reviewed: Yes Vital Signs & Weight: Vital Signs (12 hours) Temp Pulse Resp BP Pulse Ox 12/23/17 03:07 97.9 F 89 20 86/60 L 98 12/23/17 00:30 65 12 12/22/17 23:35 97.6 F 74 20 80/76 L 94 L 12/22/17 21:15 97.5 F L 65 12 94 L 12/22/17 19:16 97.5 F L 84 20 89/57 L 94 L 12/22/17 18:25 82 12 Weight Weight 82.1 kg I&O: 12/21/17 12/22/17 12/23/17 06:59 06:59 06:59 Intake Total 1240 1325 Output Total 1000 2650 1150 Balance 240 -1325 -1150 Result Diagrams: 12/16/17 11:05 12/23/17 05:17 <Cyn Brito - Last Filed: 12/23/17 10:38> - Objective Vital Signs & Weight: Vital Signs (12 hours) Temp Pulse Resp BP Pulse Ox 12/23/17 11:54 98.4 F 87 18 100/69 93 L 12/23/17 08:00 98.3 F 82 16 96 12/23/17 07:42 98.3 F 78 16 84/62 L 95 12/23/17 03:07 97.9 F 89 20 86/60 L 98 Weight Weight 81.284 kg I&O: 12/22/17 12/23/17 12/24/17 06:59 06:59 06:59 Intake Total 1325 240 Output Total 2650 1650 950 Balance -1325 -1410 -950 Result Diagrams: 12/16/17 11:05 12/23/17 05:17 <Randy Huertas - Last Filed: 12/23/17 12:58> Phys Exam - Physical Examination Constitutional: NAD bibasilar crackles Cardiovascular: RRR Gastrointestinal: soft, positive bowel sounds distended Musculoskeletal: edema present Neurological: moves all 4 limbs Psychiatric: normal affect, A&O x 3 Skin: cap refill <2 seconds <Cyn Brito - Last Filed: 12/23/17 10:38> Dx/Plan (1) Acute exacerbation of congestive heart failure Code(s): I50.9 - HEART FAILURE, UNSPECIFIED Status: Acute QualifierTitle: Heart failure type: diastolic Qualified Code(s): I50.33 - Acute on chronic diastolic (congestive) heart failure (2) COPD exacerbation Code(s): J44.1 - CHRONIC OBSTRUCTIVE PULMONARY DISEASE W (ACUTE) EXACERBATION Status: Acute (3) Gout flare Code(s): M10.9 - GOUT, UNSPECIFIED Status: Acute (4) Cor pulmonale (chronic) Code(s): I27.81 - COR PULMONALE (CHRONIC) Status: Acute (5) Foot pain, left Code(s): M79.672 - PAIN IN LEFT FOOT Status: Acute (6) CHF (congestive heart failure) Code(s): I50.9 - HEART FAILURE, UNSPECIFIED Status: Chronic QualifierTitle: Heart failure type: diastolic Heart failure chronicity: chronic Qualified Code(s): I50.32 - Chronic diastolic (congestive) heart failure (7) COPD (chronic obstructive pulmonary disease) Status: Chronic QualifierTitle: COPD type: unspecified COPD Qualified Code(s): J44.9 - Chronic obstructive pulmonary disease, unspecified (8) Diabetes mellitus type 2 in nonobese Code(s): E11.9 - TYPE 2 DIABETES MELLITUS WITHOUT COMPLICATIONS Status: Chronic (9) Hypothyroidism Code(s): E03.9 - HYPOTHYROIDISM, UNSPECIFIED Status: Chronic QualifierTitle: Hypothyroidism type: acquired Qualified Code(s): E03.9 - Hypothyroidism, unspecified (10) Pulmonary hypertension Code(s): I27.20 - PULMONARY HYPERTENSION, UNSPECIFIED Status: Chronic (11) Tobacco abuse Code(s): Z72.0 - TOBACCO USE Status: Chronic (12) Tricuspid valve regurgitation Code(s): I07.1 - RHEUMATIC TRICUSPID INSUFFICIENCY Status: Chronic QualifierTitle: Cardiac valve disease etiology: etiology unspecified Qualified Code(s): I07.1 - Rheumatic tricuspid insufficiency (13) ALICIA (acute kidney injury) Code(s): N17.9 - ACUTE KIDNEY FAILURE, UNSPECIFIED Status: Resolved (14) Compensated respiratory acidosis Code(s): E87.2 - ACIDOSIS Status: Acute Plan: Cassie Scott is a 57 year old female with a history of HFPrEF who presents to the ED with a chief complaint of fluid overload and weight gain. 1. Acute on Chronic HFpEF Exacerbation - Echo on 12/17 showed EF of 55-60% and evidence of Cor Pulmonale. - Continue diuresis with IV lasix 80mg BID. Output was almost 2L overnight - Strict I&Os & daily weight checks. - Fluid restrict to 1500 mL/day. - Cardiology on board. - LE swelling is not back to baseline yet. She remains on oxygen - Dry wt 140, 7lb wt loss since admission - Consider increasing lasix to 120 2. Acute on Chronic Hypoxic Hypercapnic Respiratory Failure 2/2 COPD, Cor Pulmonale - baseline ABG on 12/17 showed 7.38/58.9/43.2 but recheck after ~2hrs on 2L showed PO2 of 63.9. - Patient will require home O2 as this is a chronic issue. She has a prior ABG revealing a similar PO2. - CM on board for help getting her home O2. Per CM, would like to be notified of planned discharge date to make sure this is in place. However, may not be possible 2/2 patient's inability to pay. - Continue on 2.5L via nasal canula. - F/u with pulmonology as an outpatient. 3. ALICIA (acute kidney injury), resolved - Will continue to monitor with AM BMPs. 4. L foot pain - Sudden onset and severity of pain raises suspicion for a possible gout flare. Per patient, she used to be on a QD medicine for gout prior to her last hospital admission when this medication was discontinued. Per chart review, patient was prescribed allopurinol following her discharge in 05/30. - Started short course of indomethacin for pain control. - Plan to restart previous dose of allopurinol 100mg QD following discharge. - Foot is mildly warm and there is not much erythema - Pt refused PT eval, PT signed off with rec to continue walking program - Reconsult PT for eval 5. Severe Tricuspid valve regurgitation - This is likely 2/2 Cor Pulmonale. - Cards on board, appreciate recs. 6. Hypothyroidism - Continue home dose synthroid 75mcg QD. 7. COPD (chronic obstructive pulmonary disease) - Patient needs home O2 due to reasons described above. - Continue with Dulera QD & albuterol PRN while in hospital. 8. Hypertension - BP has been low and well-controlled since admission. Was in the 80s/50s over the course of yesterday. Was up to 90/56 on exam this AM. - Continue to monitor as we proceed with diuresis. - Continue to hold home dose of lisinopril 2.5 mg QD. 9. Diabetes Mellitus Type 2 - A1c of 6.6 - Well-controlled so far this visit. - Continue home dose metformin 500mg PO QD. - Patient has been refusing Meformin last 3 days 10. Tobacco abuse - Transcriber patient regarding her need to quit smoking. 11. Hypotension - BPs 70-80/40-60 since admission - Continue diuresis and monitor BP (15) Hyperuricemia Code(s): E79.0 - HYPERURICEMIA W/O SIGNS OF INFLAM ARTHRIT AND TOPHACEOUS DIS Status: Acute (16) Hypertension Code(s): I10 - ESSENTIAL (PRIMARY) HYPERTENSION Status: Chronic QualifierTitle: Hypertension type: essential hypertension Qualified Code( s): I10 - Essential (primary) hypertension - Plan Plan: Cassie Scott is a 57 year old female with a history of HFPrEF who presents to the ED with a chief complaint of fluid overload and weight gain. 1. Acute on Chronic HFpEF Exacerbation - Echo on 12/17 showed EF of 55-60% and evidence of Cor Pulmonale. - Continue diuresis with IV lasix 80mg BID. - Strict I&Os & daily weight checks. - Fluid restrict to 1500 mL/day. - Cardiology on board, awaiting rec's for d/c - LE swelling is not back to baseline yet. She remains on 2L oxygen - Dry wt 140, 7lb wt loss since admission - Output 1L yesterday 2. Acute on Chronic Hypoxic Hypercapnic Respiratory Failure 2/2 COPD, Cor Pulmonale - baseline ABG on 12/17 showed 7.38/58.9/43.2 but recheck after ~2hrs on 2L showed PO2 of 63.9. - Patient will require home O2 as this is a chronic issue. She has a prior ABG revealing a similar PO2. - CM on board for help getting her home O2. Per CM, would like to be notified of planned discharge date to make sure this is in place. However, may not be possible 2/2 patient's inability to pay. - Continue on 2L via nasal canula. - F/u with pulmonology as an outpatient. 3. ALICIA (acute kidney injury) - Cr 1.26 from 1.09 - Will continue to monitor with AM BMP 4. Left flank mass - Likely due to dependent edema but will obtain US to verify 5. L foot pain - resolved - Sudden onset and severity of pain raises suspicion for a possible gout flare. Per patient, she used to be on a QD medicine for gout prior to her last hospital admission when this medication was discontinued. Per chart review, patient was prescribed allopurinol following her discharge in 05/30. - Started short course of indomethacin for pain control. - Plan to restart previous dose of allopurinol 100mg QD following discharge. - Foot is mildly warm and there is not much erythema - Pt refused PT eval, PT signed off with rec to continue walking program - D/c'ed indomethacin 6. Severe Tricuspid valve regurgitation - This is likely 2/2 Cor Pulmonale. - Cards on board, appreciate recs. 7. Hypothyroidism - Continue home dose synthroid 75mcg QD. 8. COPD (chronic obstructive pulmonary disease) - Patient needs home O2 due to reasons described above. - Continue with Dulera QD & albuterol PRN while in hospital. 9. Hypertension - BP has been low and well-controlled since admission. Was in the 80s/50s over the course of yesterday. Was up to 90/56 on exam this AM. - Continue to monitor as we proceed with diuresis. - Continue to hold home dose of lisinopril 2.5 mg QD. 10. Diabetes Mellitus Type 2 - A1c of 6.6 - Well-controlled so far this visit. - D/c metformin 500mg PO QD, pt has refused for 4 days - Patient has been refusing Meformin, spoke with her about the benefits 11. Tobacco abuse - Transcriber patient regarding her need to quit smoking. 12. Hypotension - Monitor BP and adjust diuresis as necessary Code Status: FULL DVT ppx: Lovenox GI ppx: None Dispo: Awaiting Cardiology rec's <Cyn Brito - Last Filed: 12/23/17 10:38> (1) Acute exacerbation of congestive heart failure Code(s): I50.9 - HEART FAILURE, UNSPECIFIED Status: Acute Qualifiers: Heart failure type: diastolic Qualified Code(s): I50.33 - Acute on chronic diastolic (congestive) heart failure (2) ALICIA (acute kidney injury) Code(s): N17.9 - ACUTE KIDNEY FAILURE, UNSPECIFIED Status: Resolved (3) CHF (congestive heart failure) Code(s): I50.9 - HEART FAILURE, UNSPECIFIED Status: Chronic Qualifiers: Heart failure type: diastolic Heart failure chronicity: chronic Qualified Code(s): I50.32 - Chronic diastolic (congestive) heart failure (4) Tricuspid valve regurgitation Code(s): I07.1 - RHEUMATIC TRICUSPID INSUFFICIENCY Status: Chronic Qualifiers: Cardiac valve disease etiology: etiology unspecified Qualified Code(s): I07.1 - Rheumatic tricuspid insufficiency (5) Pulmonary hypertension Code(s): I27.20 - PULMONARY HYPERTENSION, UNSPECIFIED Status: Chronic (6) Hypothyroidism Code(s): E03.9 - HYPOTHYROIDISM, UNSPECIFIED Status: Chronic Qualifiers: Hypothyroidism type: acquired Qualified Code(s): E03.9 - Hypothyroidism, unspecified (7) COPD (chronic obstructive pulmonary disease) Status: Chronic Qualifiers: COPD type: unspecified COPD Qualified Code(s): J44.9 - Chronic obstructive pulmonary disease, unspecified (8) Hypertension Code(s): I10 - ESSENTIAL (PRIMARY) HYPERTENSION Status: Chronic Qualifiers: Hypertension type: essential hypertension Qualified Code(s): I10 - Essential (primary) hypertension (9) Diabetes mellitus type 2 in nonobese Code(s): E11.9 - TYPE 2 DIABETES MELLITUS WITHOUT COMPLICATIONS Status: Chronic (10) Tobacco abuse Code(s): Z72.0 - TOBACCO USE Status: Chronic <Randy Huertas - Last Filed: 12/23/17 12:58> Attending Addendum - Attending Addendum Date/Time: 12/23/17 1391 I personally evaluated the patient and discussed the management with Dr. Brito and team. I agree with and repeated the History, Examination, Assessment and Plan documented above with any addition or exceptions noted below. Continued increase in BMP. Anticipate she has been as diuresed as possible, but will plan on discussing next steps with cardiology. <Randy Huertas - Last Filed: 12/23/17 12:58>
[2017-12-23 05:41] LABS: BUN (Urea Nitrogen) 44 mg/dL (9.8-20.1); Calc. Creatinine Clearance 62 mL/min (70-130); Calcium 9.3 mg/dL (7.8-10.44); Estimated GFR-MDRD 50; Glucose 94 mg/dL (70-105)
[2017-12-23 05:50] LABS: Chloride 95 mmol/L (98-107); Potassium 3.9 mmol/L (3.5-5.1); Sodium 141 mmol/L (136-145)
[2017-12-23 05:53] LABS: Anion Gap 18 mmol/L (10-20); Carbon Dioxide 32 mmol/L (22-29)
[2017-12-23] MEDS: Furosemide 100 MG/10 ML VIAL SLOW IVP SCH ×2 (06:32→14:30)
[2017-12-23] MEDS: Levothyroxine Sodium 75 MCG TAB PO SCH (06:32)
[2017-12-23] MEDS: Enoxaparin Sodium 40 MG/0.4 ML SYRINGE SC SCH (09:19)
[2017-12-23] MEDS: Metolazone 5 MG TAB PO SCH (09:19)
--- NOTE | 2017-12-23 17:12 | PDOC.CTH ---
Cardiology Progress Note - Subjective Doing well. Still with significant ascitis. Continues to diurese now. - Objective Vital Signs Temp Pulse Resp BP Pulse Ox 12/23/17 16:00 97.4 F L 82 16 94/58 L 94 L 12/23/17 13:22 82 16 98 12/23/17 11:54 98.4 F 87 18 100/69 93 L 12/23/17 08:00 98.3 F 82 16 96 12/23/17 07:42 98.3 F 78 16 84/62 L 95 Weight 179 lb 3.2 oz 12/22/17 12/23/17 12/24/17 06:59 06:59 06:59 Intake Total 1325 240 Output Total 2658 2403 407 Balance -8338 -2523 -950 - Physical Examination General/Neuro: alert & oriented x3, NAD Neck: no JVD present Lungs: unlabored respirations Heart: RRR Abdomen: other: (Distended, tender to palpation.) Extremities: + edema B (4+) - Telemetry Telemetry Rhythm: NSR - Labs Result Diagrams: 12/16/17 11:05 12/23/17 05:17 Troponin/CKMB CK-MB (CK-2) 2.4 ng/mL (0-6.6) 12/16/17 11:00 Troponin I 0.011 ng/mL (< 0.028) 12/16/17 11:00 - Assessment/Plan 1. RV failure 2. COPD 3. Severe TR 4. Tobacco abuse 5. IGNACIO 6. Anasarca PLAN: - Continue current diuretic regimen for now. - intermediate prognosis is poor. - Continue to monitor renal function.
[2017-12-24] MEDS: Ipratropium Bromide 2.5 ml Neb NEB SCH ×4 (00:47→19:31)
--- NOTE | 2017-12-24 04:58 | PDOC.FM ---
- Subjective Subjective: Ms Scott is a 57yo female with hx of HFrEF who presents to the ED with fluid overload and weight gain. She continues to tolerate diuresis. Denies lightheadedness, dizziness, SOB, difficulty walking. - Objective MAR Reviewed: Yes Vital Signs & Weight: Vital Signs (12 hours) Temp Pulse Resp BP Pulse Ox 12/24/17 04:00 97.4 F L 82 18 82/56 L 93 L 12/24/17 00:47 99 14 93 L 12/24/17 00:00 97.7 F 77 18 87/59 L 97 12/23/17 20:50 97.6 F 90 18 12/23/17 20:00 97.6 F 90 18 101/57 L 95 12/23/17 19:41 85 18 94 L Weight Weight 80.331 kg I&O: 12/22/17 12/23/17 12/24/17 06:59 06:59 06:59 Intake Total 1325 240 500 Output Total 2650 1650 2300 Balance -6566 -3491 -8295 Result Diagrams: 12/16/17 11:05 12/24/17 05:10 <Cyn Brito - Last Filed: 12/24/17 11:34> - Objective Vital Signs & Weight: Vital Signs (12 hours) Temp Pulse Resp BP Pulse Ox 12/24/17 15:55 98.0 F 85 16 104/57 L 92 L 12/24/17 13:58 86 16 12/24/17 11:22 98.6 F 83 20 96/56 L 92 L 12/24/17 08:45 98.6 F 83 20 98 12/24/17 07:53 97.5 F L 72 16 97/65 98 12/24/17 07:09 93 L 12/24/17 07:07 79 16 Weight Weight 80.331 kg I&O: 12/23/17 12/24/17 12/25/17 06:59 06:59 06:59 Intake Total 240 920 Output Total 1650 3550 3050 Balance -1410 -1950 -3050 Result Diagrams: 12/16/17 11:05 12/24/17 05:10 <Cuauhtemoc Conteh - Last Filed: 12/24/17 17:02> Phys Exam - Physical Examination Constitutional: NAD bibasilar crackles Cardiovascular: RRR Gastrointestinal: soft, non-tender, positive bowel sounds distended Musculoskeletal: pulses present, edema present Neurological: moves all 4 limbs Psychiatric: normal affect, A&O x 3 Skin: cap refill <2 seconds <Cyn Brito - Last Filed: 12/24/17 11:34> Dx/Plan (1) Acute exacerbation of congestive heart failure Code(s): I50.9 - HEART FAILURE, UNSPECIFIED Status: Acute QualifierTitle: Heart failure type: diastolic Qualified Code(s): I50.33 - Acute on chronic diastolic (congestive) heart failure (2) COPD exacerbation Code(s): J44.1 - CHRONIC OBSTRUCTIVE PULMONARY DISEASE W (ACUTE) EXACERBATION Status: Acute (3) Gout flare Code(s): M10.9 - GOUT, UNSPECIFIED Status: Acute (4) Cor pulmonale (chronic) Code(s): I27.81 - COR PULMONALE (CHRONIC) Status: Acute (5) Foot pain, left Code(s): M79.672 - PAIN IN LEFT FOOT Status: Acute (6) CHF (congestive heart failure) Code(s): I50.9 - HEART FAILURE, UNSPECIFIED Status: Chronic QualifierTitle: Heart failure type: diastolic Heart failure chronicity: chronic Qualified Code(s): I50.32 - Chronic diastolic (congestive) heart failure (7) COPD (chronic obstructive pulmonary disease) Status: Chronic QualifierTitle: COPD type: unspecified COPD Qualified Code(s): J44.9 - Chronic obstructive pulmonary disease, unspecified (8) Diabetes mellitus type 2 in nonobese Code(s): E11.9 - TYPE 2 DIABETES MELLITUS WITHOUT COMPLICATIONS Status: Chronic (9) Hypothyroidism Code(s): E03.9 - HYPOTHYROIDISM, UNSPECIFIED Status: Chronic QualifierTitle: Hypothyroidism type: acquired Qualified Code(s): E03.9 - Hypothyroidism, unspecified (10) Pulmonary hypertension Code(s): I27.20 - PULMONARY HYPERTENSION, UNSPECIFIED Status: Chronic (11) Tobacco abuse Code(s): Z72.0 - TOBACCO USE Status: Chronic (12) Tricuspid valve regurgitation Code(s): I07.1 - RHEUMATIC TRICUSPID INSUFFICIENCY Status: Chronic QualifierTitle: Cardiac valve disease etiology: etiology unspecified Qualified Code(s): I07.1 - Rheumatic tricuspid insufficiency (13) ALICIA (acute kidney injury) Code(s): N17.9 - ACUTE KIDNEY FAILURE, UNSPECIFIED Status: Resolved (14) Compensated respiratory acidosis Code(s): E87.2 - ACIDOSIS Status: Acute Plan: Cassie Scott is a 57 year old female with a history of HFPrEF who presents to the ED with a chief complaint of fluid overload and weight gain. 1. Acute on Chronic HFpEF Exacerbation - Echo on 12/17 showed EF of 55-60% and evidence of Cor Pulmonale. - Continue diuresis with IV lasix 80mg BID. Output was almost 2L overnight - Strict I&Os & daily weight checks. - Fluid restrict to 1500 mL/day. - Cardiology on board. - LE swelling is not back to baseline yet. She remains on oxygen - Dry wt 140, 7lb wt loss since admission - Consider increasing lasix to 120 2. Acute on Chronic Hypoxic Hypercapnic Respiratory Failure 2/2 COPD, Cor Pulmonale - baseline ABG on 12/17 showed 7.38/58.9/43.2 but recheck after ~2hrs on 2L showed PO2 of 63.9. - Patient will require home O2 as this is a chronic issue. She has a prior ABG revealing a similar PO2. - CM on board for help getting her home O2. Per , would like to be notified of planned discharge date to make sure this is in place. However, may not be possible 2/2 patient's inability to pay. - Continue on 2.5L via nasal canula. - F/u with pulmonology as an outpatient. 3. ALICIA (acute kidney injury), resolved - Will continue to monitor with AM BMPs. 4. L foot pain - Sudden onset and severity of pain raises suspicion for a possible gout flare. Per patient, she used to be on a QD medicine for gout prior to her last hospital admission when this medication was discontinued. Per chart review, patient was prescribed allopurinol following her discharge in 05/30. - Started short course of indomethacin for pain control. - Plan to restart previous dose of allopurinol 100mg QD following discharge. - Foot is mildly warm and there is not much erythema - Pt refused PT eval, PT signed off with rec to continue walking program - Reconsult PT for eval 5. Severe Tricuspid valve regurgitation - This is likely 2/2 Cor Pulmonale. - Cards on board, appreciate recs. 6. Hypothyroidism - Continue home dose synthroid 75mcg QD. 7. COPD (chronic obstructive pulmonary disease) - Patient needs home O2 due to reasons described above. - Continue with Dulera QD & albuterol PRN while in hospital. 8. Hypertension - BP has been low and well-controlled since admission. Was in the 80s/50s over the course of yesterday. Was up to 90/56 on exam this AM. - Continue to monitor as we proceed with diuresis. - Continue to hold home dose of lisinopril 2.5 mg QD. 9. Diabetes Mellitus Type 2 - A1c of 6.6 - Well-controlled so far this visit. - Continue home dose metformin 500mg PO QD. - Patient has been refusing Meformin last 3 days 10. Tobacco abuse - Post Closing Specialist patient regarding her need to quit smoking. 11. Hypotension - BPs 70-80/40-60 since admission - Continue diuresis and monitor BP (15) Hyperuricemia Code(s): E79.0 - HYPERURICEMIA W/O SIGNS OF INFLAM ARTHRIT AND TOPHACEOUS DIS Status: Acute (16) Hypertension Code(s): I10 - ESSENTIAL (PRIMARY) HYPERTENSION Status: Chronic QualifierTitle: Hypertension type: essential hypertension Qualified Code( s): I10 - Essential (primary) hypertension - Plan Plan: Cassie Scott is a 57 year old female with a history of HFPrEF who presents to the ED with a chief complaint of fluid overload and weight gain. 1. Acute on Chronic HFpEF Exacerbation - Echo on 12/17 showed EF of 55-60% and evidence of Cor Pulmonale. - Continue diuresis with IV lasix 80mg BID - Strict I&Os & daily weight checks. - Fluid restrict to 1500 mL/day. - Cardiology on board. - LE swelling is not back to baseline yet. She remains on 2L oxygen - Titrate O2 to SpO2 between 88-92% - Dry wt 140, 7lb down from admission - Continue diuresis 2. Acute on Chronic Hypoxic Hypercapnic Respiratory Failure 2/2 COPD, Cor Pulmonale - baseline ABG on 12/17 showed 7.38/58.9/43.2 but recheck after ~2hrs on 2L showed PO2 of 63.9. - Patient will require home O2 as this is a chronic issue. She has a prior ABG revealing a similar PO2. - CM on board for help getting her home O2. Per CM, would like to be notified of planned discharge date to make sure this is in place. However, may not be possible 2/2 patient's inability to pay. - Continue on 2L via nasal canula. - F/u with pulmonology as an outpatient. 3. ALICIA (acute kidney injury) - Will continue to monitor with AM BMPs and adjust diuresis accordingly 4. L foot pain - resolved - Sudden onset and severity of pain raises suspicion for a possible gout flare. Per patient, she used to be on a QD medicine for gout prior to her last hospital admission when this medication was discontinued. Per chart review, patient was prescribed allopurinol following her discharge in 05/30. - Plan to restart previous dose of allopurinol 100mg QD following discharge. - Pt refused PT eval, PT signed off with rec to continue walking program 5. Severe Tricuspid valve regurgitation - This is likely 2/2 Cor Pulmonale. - Cards on board, appreciate recs. 6. Hypothyroidism - Continue home dose synthroid 75mcg QD. 7. COPD (chronic obstructive pulmonary disease) - Patient needs home O2 due to reasons described above. - Continue with Dulera QD & albuterol PRN while in hospital. 8. Hypertension - BP has been low and well-controlled since admission - Continue to monitor as we proceed with diuresis - Continue to hold home dose of lisinopril 2.5 mg QD 9. Diabetes Mellitus Type 2 - A1c of 6.6 - Well-controlled so far this visit - D/c'ed metformin 500mg PO QD, due to pt refusal - Educated pt on benefits/risks of Metformin 10. Tobacco abuse - Post Closing Specialist patient regarding her need to quit smoking. 11. Hypotension - Monitor BP and adjust diuresis accordingly Code Status: Full Code DVT ppx: SCDs & Lovonox GI ppx: None <Cyn Brito - Last Filed: 12/24/17 11:34> Attending Addendum - Attending Addendum Date/Time: 12/24/17 1701 I personally evaluated the patient and discussed the management with Dr. 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 <Cuauhtemoc Conteh - Last Filed: 12/24/17 17:02>
[2017-12-24] MEDS: Levothyroxine Sodium 75 MCG TAB PO SCH (05:32)
[2017-12-24] MEDS: Furosemide 100 MG/10 ML VIAL SLOW IVP SCH ×2 (05:32→14:47)
[2017-12-24 05:43] LABS: BUN (Urea Nitrogen) 36 mg/dL (9.8-20.1); Calc. Creatinine Clearance 92 mL/min (70-130); Calcium 9.7 mg/dL (7.8-10.44); Estimated GFR-MDRD 81; Glucose 87 mg/dL (70-105)
[2017-12-24 05:55] LABS: Anion Gap 16 mmol/L (10-20); Carbon Dioxide 38 mmol/L (22-29); Chloride 93 mmol/L (98-107); Potassium 3.8 mmol/L (3.5-5.1); Sodium 143 mmol/L (136-145)
[2017-12-24] MEDS: Metolazone 5 MG TAB PO SCH (09:15)
[2017-12-24] MEDS: Enoxaparin Sodium 40 MG/0.4 ML SYRINGE SC SCH (09:16)
--- NOTE | 2017-12-24 15:37 | PDOC.CTH ---
<Marika Ortega - Last Filed: 12/24/17 15:38> Cardiology Progress Note - Subjective The pt seen and examined. No overnight events. No cardiac complaints. She stated she has been watching her fluid and salt intakes; however, she works at [employer] and did not know BBQ contains salt. She is willing to start cutting smoking. The pt stated she cannot f/u with CHF clinic due to her financial status. - Objective Vital Signs Temp Pulse Resp BP Pulse Ox 12/24/17 13:58 86 16 12/24/17 11:22 98.6 F 83 20 96/56 L 92 L 12/24/17 08:45 98.6 F 83 20 98 12/24/17 07:53 97.5 F L 72 16 97/65 98 12/24/17 07:09 93 L 12/24/17 07:07 79 16 12/24/17 04:00 97.4 F L 82 18 82/56 L 93 L Weight 177 lb 1.6 oz 12/23/17 12/24/17 12/25/17 06:59 06:59 06:59 Intake Total 240 920 Output Total 1650 3550 2049 Balance -1410 -2630 -2049 - Physical Examination General/Neuro: alert & oriented x3 Neck: no JVD present Lungs: other: (diminished at bases) Heart: RRR Abdomen: soft Extremities: other: (3-4+ pitting BLE edema) - Telemetry Telemetry Rhythm: SR - Labs Result Diagrams: 12/16/17 11:05 12/24/17 05:10 Troponin/CKMB CK-MB (CK-2) 2.4 ng/mL (0-6.6) 12/16/17 11:00 Troponin I 0.011 ng/mL (< 0.028) 12/16/17 11:00 - Assessment/Plan 1. Aucte on Chronic Diastolic HF - stable with Lasix 80mg IV BID with Metolazone 5mg qd; Output yesterday was > 3500ML and > 2000ml so far today; may resume TIANA or BBlocker when her BP is more stable; order Compression stockings. 2. COPD exacerbation - stable with 2LNC; 3. Severe TR - likely 2/2 Cor Pulmonale. 4. IGNACIO - managed by PCP 5. DM type 2 - managed by PCP 6. ALICIA - improving 7. Hypothyroidism - on Synthroid 8. Tobacco abuse - smoking cessation education given to the pt MAR reviewed Review of Systems - Review of Systems Constitutional: reports: no symptoms reported EENTM: reports: no symptoms reported Respiratory: reports: shortness of breath Cardiac (ROS): reports: no symptoms reported ABD/GI: reports: no symptoms reported : reports: no symptoms reported Musculoskeletal: reports: no symptoms reported <Iraj Saldana - Last Filed: 12/24/17 20:27> Cardiology Progress Note - Objective Vital Signs Temp Pulse Resp BP Pulse Ox 12/24/17 19:31 86 16 92 L 12/24/17 15:55 98.0 F 85 16 104/57 L 92 L 12/24/17 13:58 86 16 12/24/17 11:22 98.6 F 83 20 96/56 L 92 L 12/24/17 08:45 98.6 F 83 20 98 Weight 177 lb 1.6 oz 12/23/17 12/24/17 12/25/17 06:59 06:59 06:59 Intake Total 240 920 Output Total 1650 3550 3600 Balance -1410 -2630 -3600 - Labs Result Diagrams: 12/16/17 11:05 12/24/17 05:10 Troponin/CKMB CK-MB (CK-2) 2.4 ng/mL (0-6.6) 12/16/17 11:00 Troponin I 0.011 ng/mL (< 0.028) 12/16/17 11:00 - Assessment/Plan Pt. seen and eval. by me. I agree with the A/P by the CONSTRUCTION SUPERVISOR.She continues to diurese. Chest : no wheeze or rales. Decr. BS. RRR.
[2017-12-25] MEDS: Ipratropium Bromide 2.5 ml Neb NEB SCH ×4 (00:48→18:44)
--- NOTE | 2017-12-25 05:02 | PDOC.FM ---
- Subjective Subjective: Cassie Forman is a 57 year old female with a history of HFPrEF who presents to the ED with a chief complaint of fluid overload and weight gain. She continues to tolerate diuresis. Denies lightheadedness, dizziness, SOB, difficulty walking. - Objective MAR Reviewed: Yes Vital Signs & Weight: Vital Signs (12 hours) Temp Pulse Resp BP Pulse Ox 12/25/17 04:00 98.1 F 84 18 79/50 L 94 L 12/25/17 00:48 86 16 95 12/25/17 00:00 98.3 F 87 18 100/65 96 12/24/17 20:55 97.5 F L 96 18 102/50 L 94 L 12/24/17 19:31 86 16 92 L Weight Weight 76.748 kg I&O: 12/23/17 12/24/17 12/25/17 06:59 06:59 06:59 Intake Total 240 920 Output Total 1650 3550 3600 Balance -9534 -2466 -7106 Result Diagrams: 12/16/17 11:05 12/24/17 05:10 Phys Exam - Physical Examination Constitutional: NAD Respiratory: wheezing present bibasilar crackles Cardiovascular: RRR Gastrointestinal: soft, non-tender, positive bowel sounds distended Musculoskeletal: pulses present, edema present Psychiatric: normal affect, A&O x 3 Skin: cap refill <2 seconds Dx/Plan (1) Acute exacerbation of congestive heart failure Code(s): I50.9 - HEART FAILURE, UNSPECIFIED Status: Acute Qualifiers: Heart failure type: diastolic Qualified Code(s): I50.33 - Acute on chronic diastolic (congestive) heart failure (2) COPD exacerbation Code(s): J44.1 - CHRONIC OBSTRUCTIVE PULMONARY DISEASE W (ACUTE) EXACERBATION Status: Acute (3) Gout flare Code(s): M10.9 - GOUT, UNSPECIFIED Status: Acute (4) Cor pulmonale (chronic) Code(s): I27.81 - COR PULMONALE (CHRONIC) Status: Acute (5) Foot pain, left Code(s): M79.672 - PAIN IN LEFT FOOT Status: Acute (6) CHF (congestive heart failure) Code(s): I50.9 - HEART FAILURE, UNSPECIFIED Status: Chronic Qualifiers: Heart failure type: diastolic Heart failure chronicity: chronic Qualified Code(s): I50.32 - Chronic diastolic (congestive) heart failure (7) COPD (chronic obstructive pulmonary disease) Status: Chronic Qualifiers: COPD type: unspecified COPD Qualified Code(s): J44.9 - Chronic obstructive pulmonary disease, unspecified (8) Diabetes mellitus type 2 in nonobese Code(s): E11.9 - TYPE 2 DIABETES MELLITUS WITHOUT COMPLICATIONS Status: Chronic (9) Hypothyroidism Code(s): E03.9 - HYPOTHYROIDISM, UNSPECIFIED Status: Chronic Qualifiers: Hypothyroidism type: acquired Qualified Code(s): E03.9 - Hypothyroidism, unspecified (10) Pulmonary hypertension Code(s): I27.20 - PULMONARY HYPERTENSION, UNSPECIFIED Status: Chronic (11) Tobacco abuse Code(s): Z72.0 - TOBACCO USE Status: Chronic (12) Tricuspid valve regurgitation Code(s): I07.1 - RHEUMATIC TRICUSPID INSUFFICIENCY Status: Chronic Qualifiers: Cardiac valve disease etiology: etiology unspecified Qualified Code(s): I07.1 - Rheumatic tricuspid insufficiency (13) ALICIA (acute kidney injury) Code(s): N17.9 - ACUTE KIDNEY FAILURE, UNSPECIFIED Status: Resolved (14) Compensated respiratory acidosis Code(s): E87.2 - ACIDOSIS Status: Acute Plan: Cassie Forman is a 57 year old female with a history of HFPrEF who presents to the ED with a chief complaint of fluid overload and weight gain. 1. Acute on Chronic HFpEF Exacerbation - Echo on 12/17 showed EF of 55-60% and evidence of Cor Pulmonale. - Continue diuresis with IV lasix 80mg BID. Output was almost 2L overnight - Strict I&Os & daily weight checks. - Fluid restrict to 1500 mL/day. - Cardiology on board. - LE swelling is not back to baseline yet. She remains on oxygen - Dry wt 140, 7lb wt loss since admission - Consider increasing lasix to 120 2. Acute on Chronic Hypoxic Hypercapnic Respiratory Failure 2/2 COPD, Cor Pulmonale - baseline ABG on 12/17 showed 7.38/58.9/43.2 but recheck after ~2hrs on 2L showed PO2 of 63.9. - Patient will require home O2 as this is a chronic issue. She has a prior ABG revealing a similar PO2. - CM on board for help getting her home O2. Per CM, would like to be notified of planned discharge date to make sure this is in place. However, may not be possible 2/2 patient's inability to pay. - Continue on 2.5L via nasal canula. - F/u with pulmonology as an outpatient. 3. ALICIA (acute kidney injury), resolved - Will continue to monitor with AM BMPs. 4. L foot pain - Sudden onset and severity of pain raises suspicion for a possible gout flare. Per patient, she used to be on a QD medicine for gout prior to her last hospital admission when this medication was discontinued. Per chart review, patient was prescribed allopurinol following her discharge in 05/30. - Started short course of indomethacin for pain control. - Plan to restart previous dose of allopurinol 100mg QD following discharge. - Foot is mildly warm and there is not much erythema - Pt refused PT eval, PT signed off with rec to continue walking program - Reconsult PT for eval 5. Severe Tricuspid valve regurgitation - This is likely 2/2 Cor Pulmonale. - Cards on board, appreciate recs. 6. Hypothyroidism - Continue home dose synthroid 75mcg QD. 7. COPD (chronic obstructive pulmonary disease) - Patient needs home O2 due to reasons described above. - Continue with Dulera QD & albuterol PRN while in hospital. 8. Hypertension - BP has been low and well-controlled since admission. Was in the 80s/50s over the course of yesterday. Was up to 90/56 on exam this AM. - Continue to monitor as we proceed with diuresis. - Continue to hold home dose of lisinopril 2.5 mg QD. 9. Diabetes Mellitus Type 2 - A1c of 6.6 - Well-controlled so far this visit. - Continue home dose metformin 500mg PO QD. - Patient has been refusing Meformin last 3 days 10. 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 11. Hypotension - BPs 70-80/40-60 since admission - Continue diuresis and monitor BP (15) Hyperuricemia Code(s): E79.0 - HYPERURICEMIA W/O SIGNS OF INFLAM ARTHRIT AND TOPHACEOUS DIS Status: Acute (16) Hypertension Code(s): I10 - ESSENTIAL (PRIMARY) HYPERTENSION Status: Chronic Qualifiers: Hypertension type: essential hypertension Qualified Code(s): I10 - Essential (primary) hypertension - Plan Plan: Cassie Forman is a 57 year old female with a history of HFPrEF who presents to the ED with a chief complaint of fluid overload and weight gain. 1. Acute on Chronic HFpEF Exacerbation - Echo on 12/17 showed EF of 55-60% and evidence of Cor Pulmonale. - Continue diuresis with IV lasix 80mg BID. Output was almost 2L overnight - Strict I&Os & daily weight checks. - Fluid restrict to 1500 mL/day. - Cardiology on board. - LE swelling is not back to baseline yet. She remains on oxygen - Dry wt 140, 7lb wt loss since admission - Consider increasing lasix to 120 2. Acute on Chronic Hypoxic Hypercapnic Respiratory Failure 2/2 COPD, Cor Pulmonale - Patient will require home O2 as this is a chronic issue. She has a prior ABG revealing a similar PO2. - CM on board for help getting her home O2 - Continue on 2L via nasal canula. - F/u with pulmonology as an outpatient. 3. ALICIA (acute kidney injury), resolved - Will continue to monitor with AM BMPs. 4. L foot pain - resolved - Sudden onset and severity of pain raises suspicion for a possible gout flare. Per patient, she used to be on a QD medicine for gout prior to her last hospital admission when this medication was discontinued. Per chart review, patient was prescribed allopurinol following her discharge in 05/30. - Plan to restart previous dose of allopurinol 100mg QD following discharge. - Pt refused PT eval, PT signed off with rec to continue walking program 5. Severe Tricuspid valve regurgitation - This is likely 2/2 Cor Pulmonale. - Cards on board, appreciate recs. 6. Hypothyroidism - Continue home dose synthroid 75mcg QD. 7. COPD (chronic obstructive pulmonary disease) - Patient needs home O2 due to reasons described above. - Continue with Dulera QD & albuterol PRN while in hospital. 8. Hypertension - Continue to monitor as we proceed with diuresis. - Holding home dose of lisinopril 2.5 mg QD. 9. Diabetes Mellitus Type 2 - A1c of 6.6 - Educated pt on benefits/risks of Metformin, d/c'ed due to patient refusal 10. 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 11. Hypotension - Monitor BP and diuresis accordingly
[2017-12-25] MEDS: Furosemide 100 MG/10 ML VIAL SLOW IVP SCH (05:40)
[2017-12-25] MEDS: Levothyroxine Sodium 75 MCG TAB PO SCH (05:41)
[2017-12-25 08:43] LABS: BUN (Urea Nitrogen) 30 mg/dL (9.8-20.1); Calc. Creatinine Clearance 97 mL/min (70-130); Calcium 10.8 mg/dL (7.8-10.44); Estimated GFR-MDRD Greater than 90; Glucose 89 mg/dL (70-105)
[2017-12-25 08:54] LABS: Anion Gap 16 mmol/L (10-20); Chloride 88 mmol/L (98-107); Potassium 3.7 mmol/L (3.5-5.1); Sodium 144 mmol/L (136-145)
--- NOTE | 2017-12-25 08:58 | PDOC.CTH ---
<Marika Ortega - Last Filed: 12/25/17 08:56> Cardiology Progress Note - Subjective The pt seen and examined. No overnight events. No cardiac complaints. She is on RA without any SOB. She also stated she feels confortable in her ABD because her ABD is more softer and she can eat better today. - Objective Vital Signs Temp Pulse Resp BP BP Pulse Ox 12/25/17 07:40 97.5 F L 78 16 90/56 L 92 L 12/25/17 07:32 95 12/25/17 07:30 76 16 12/25/17 05:40 98 102/73 12/25/17 04:00 98.1 F 84 18 79/50 L 94 L 12/25/17 00:48 86 16 95 12/25/17 00:00 98.3 F 87 18 100/65 96 Weight 169 lb 3.2 oz 12/24/17 12/25/17 12/26/17 06:59 06:59 06:59 Intake Total 920 480 Output Total 3550 6100 Balance -4370 -5660 - Physical Examination General/Neuro: alert & oriented x3 Neck: no JVD present Lungs: other: (diminished at bases) Heart: RRR Abdomen: soft Extremities: other: (2+ pitting BLE edemas) - Telemetry Telemetry Rhythm: SR, 1st AVB, 80s - Labs Result Diagrams: 12/16/17 11:05 12/25/17 08:13 Troponin/CKMB CK-MB (CK-2) 2.4 ng/mL (0-6.6) 12/16/17 11:00 Troponin I 0.011 ng/mL (< 0.028) 12/16/17 11:00 - Assessment/Plan 1. Aucte on Chronic Diastolic HF - stable with Lasix 80mg IV BID with Metolazone 5mg qd; Output yesterday was > 6000ML; may resume TIANA or BBlocker when her BP is more stable; BLE edema are improving with Compression stockings. 2. COPD exacerbation - stable with RA 3. Severe TR - likely 2/2 Cor Pulmonale. 4. IGNACIO - managed by PCP 5. DM type 2 - managed by PCP 6. ALICIA - improving 7. Hypothyroidism - on Synthroid 8. Tobacco abuse - smoking cessation education given to the pt MAR reviewed Review of Systems - Review of Systems Constitutional: reports: no symptoms reported EENTM: reports: no symptoms reported Respiratory: reports: no symptoms reported Cardiac (ROS): reports: no symptoms reported ABD/GI: reports: no symptoms reported : reports: no symptoms reported Musculoskeletal: reports: no symptoms reported <Iraj Saldana - Last Filed: 12/26/17 21:37> Cardiology Progress Note - Objective Vital Signs Temp Pulse Resp BP Pulse Ox 12/26/17 20:06 98.3 F 83 14 12/26/17 20:00 97.9 F 75 16 87/56 L 98 12/26/17 19:19 83 14 94 L 12/26/17 15:39 98.7 F 83 16 86/49 L 96 12/26/17 13:49 93 12 12/26/17 12:00 98.1 F 78 16 93/61 93 L Weight 166 lb 6.4 oz 12/25/17 12/26/17 12/27/17 06:59 06:59 06:59 Intake Total 480 1115 860 Output Total 6109 9526 3000 Balance -5632 -3560 -2140 - Labs Result Diagrams: 12/16/17 11:05 12/26/17 04:41 Troponin/CKMB CK-MB (CK-2) 2.4 ng/mL (0-6.6) 12/16/17 11:00 Troponin I 0.011 ng/mL (< 0.028) 12/16/17 11:00 - Assessment/Plan Pt. seen and eval. by me. I agree with the A/P by the OPERATIONS EXECUTIVE.She continues to diurese. Chest : no wheeze or rales. Decr. BS. RRR.
[2017-12-25] MEDS: Enoxaparin Sodium 40 MG/0.4 ML SYRINGE SC SCH (09:00)
[2017-12-25 09:01] LABS: Carbon Dioxide Greater than 37 mmol/L (22-29)
[2017-12-25] MEDS ORDERED: Metolazone 5 MG TAB PO SCH (13:30)
[2017-12-25] MEDS: Furosemide 40 MG/4 ML VIAL SLOW IVP SCH (14:53)
[2017-12-26] MEDS: Ipratropium Bromide 2.5 ml Neb NEB SCH ×4 (00:56→19:19)
[2017-12-26 05:01] LABS: BUN (Urea Nitrogen) 26 mg/dL (9.8-20.1); Calc. Creatinine Clearance 108 mL/min (70-130); Calcium 10.7 mg/dL (7.8-10.44); Estimated GFR-MDRD Greater than 90; Glucose 89 mg/dL (70-105)
[2017-12-26 05:10] LABS: Anion Gap 16 mmol/L (10-20); Chloride 89 mmol/L (98-107); Potassium 3.5 mmol/L (3.5-5.1); Sodium 143 mmol/L (136-145)
[2017-12-26 05:13] LABS: Carbon Dioxide 42 mmol/L (22-29)
--- NOTE | 2017-12-26 05:26 | PDOC.FM ---
- Subjective Subjective: Cassie Forman is a 57 year old female with a history of HFPrEF who presents to the ED with a chief complaint of fluid overload and weight gain. Denies lightheadedness, dizziness, SOB. She reports feeling very well this morning. - Objective MAR Reviewed: Yes Vital Signs & Weight: Vital Signs (12 hours) Temp Pulse Resp BP Pulse Ox 12/26/17 03:47 97.7 F 81 18 92/66 96 12/26/17 00:56 80 12 12/25/17 23:47 98.1 F 84 18 104/61 95 12/25/17 20:24 97.8 F 87 18 12/25/17 19:57 97.8 F 87 18 106/62 96 12/25/17 18:44 76 16 Weight Weight 76.748 kg I&O: 12/24/17 12/25/17 12/26/17 06:59 06:59 06:59 Intake Total 920 480 705 Output Total 9529 6004 2724 Balance -2630 -5620 -2020 Result Diagrams: 12/16/17 11:05 12/26/17 04:41 Phys Exam - Physical Examination Constitutional: NAD Respiratory: wheezing present Cardiovascular: RRR Gastrointestinal: soft, non-tender, positive bowel sounds Musculoskeletal: pulses present, edema present significant improvment in edema since admission Psychiatric: normal affect, A&O x 3 Skin: cap refill <2 seconds Dx/Plan (1) Metabolic alkalosis Code(s): E87.3 - ALKALOSIS Status: Acute (2) Acute exacerbation of congestive heart failure Code(s): I50.9 - HEART FAILURE, UNSPECIFIED Status: Acute Qualifiers: Heart failure type: diastolic Qualified Code(s): I50.33 - Acute on chronic diastolic (congestive) heart failure (3) COPD exacerbation Code(s): J44.1 - CHRONIC OBSTRUCTIVE PULMONARY DISEASE W (ACUTE) EXACERBATION Status: Acute (4) Gout flare Code(s): M10.9 - GOUT, UNSPECIFIED Status: Acute (5) Cor pulmonale (chronic) Code(s): I27.81 - COR PULMONALE (CHRONIC) Status: Acute (6) Foot pain, left Code(s): M79.672 - PAIN IN LEFT FOOT Status: Acute (7) CHF (congestive heart failure) Code(s): I50.9 - HEART FAILURE, UNSPECIFIED Status: Chronic Qualifiers: Heart failure type: diastolic Heart failure chronicity: chronic Qualified Code(s): I50.32 - Chronic diastolic (congestive) heart failure (8) COPD (chronic obstructive pulmonary disease) Status: Chronic Qualifiers: COPD type: unspecified COPD Qualified Code(s): J44.9 - Chronic obstructive pulmonary disease, unspecified (9) Diabetes mellitus type 2 in nonobese Code(s): E11.9 - TYPE 2 DIABETES MELLITUS WITHOUT COMPLICATIONS Status: Chronic (10) Hypothyroidism Code(s): E03.9 - HYPOTHYROIDISM, UNSPECIFIED Status: Chronic Qualifiers: Hypothyroidism type: acquired Qualified Code(s): E03.9 - Hypothyroidism, unspecified (11) Pulmonary hypertension Code(s): I27.20 - PULMONARY HYPERTENSION, UNSPECIFIED Status: Chronic (12) Tobacco abuse Code(s): Z72.0 - TOBACCO USE Status: Chronic (13) Tricuspid valve regurgitation Code(s): I07.1 - RHEUMATIC TRICUSPID INSUFFICIENCY Status: Chronic Qualifiers: Cardiac valve disease etiology: etiology unspecified Qualified Code(s): I07.1 - Rheumatic tricuspid insufficiency (14) ALICIA (acute kidney injury) Code(s): N17.9 - ACUTE KIDNEY FAILURE, UNSPECIFIED Status: Resolved (15) Compensated respiratory acidosis Code(s): E87.2 - ACIDOSIS Status: Acute (16) Hyperuricemia Code(s): E79.0 - HYPERURICEMIA W/O SIGNS OF INFLAM ARTHRIT AND TOPHACEOUS DIS Status: Acute (17) Hypertension Code(s): I10 - ESSENTIAL (PRIMARY) HYPERTENSION Status: Chronic Qualifiers: Hypertension type: essential hypertension Qualified Code(s): I10 - Essential (primary) hypertension - Plan Plan: Cassie Forman is a 57 year old female with a history of HFPrEF who presents to the ED with a chief complaint of fluid overload and weight gain. 1. Acute on Chronic HFpEF Exacerbation - Echo on 12/17 showed EF of 55-60% and evidence of Cor Pulmonale. - Continue diuresis with IV lasix 40mg BID. - Strict I&Os & daily weight checks. - Fluid restrict to 1500 mL/day. - Cardiology on board. - LE swelling is not back to baseline yet. She remains on oxygen - Dry wt 140, 7lb wt loss since admission - 12/25 Reduced Lasix to 40mg IV BID and d/c'ed metolazone due to contraction alkalosis 2. Metabolic Alkalosis likely 2/2 fluid contraction - HCO3 42 - Hold lasix, may need gentle fluid replacement - Acetazolamide 500 BID today 3. Acute on Chronic Hypoxic Hypercapnic Respiratory Failure 2/2 COPD, Cor Pulmonale - baseline ABG 12/17: 7.38/58.9/43.2 but recheck after ~2hrs on 2L: PO2 63.9. - Patient will require home O2. She has a prior ABG revealing a similar PO2. - CM on board for help getting her home O2. Per CM, would like to be notified of planned discharge date to make sure this is in place. However, may not be possible 2/2 patient's inability to pay. - Continue on 2L via nasal canula. - F/u with pulmonology as an outpatient. 4. ALICIA (acute kidney injury) - resolved - Will continue to monitor with AM BMPs. 5. Left flank mass - resolved - likely result of dependent edema 6. L foot pain - resolved - Plan to restart previous dose of allopurinol 100mg QD following d/c. - PT signed off, continue walking program 7. Severe Tricuspid valve regurgitation - This is likely 2/2 Cor Pulmonale. - Cards on board, appreciate recs. 8. Hypothyroidism - Continue home dose synthroid 75mcg QD. 9. COPD (chronic obstructive pulmonary disease) - Patient needs home O2 due to reasons described above. - Continue with Dulera QD & albuterol PRN while in hospital. 10. Hypertension - Continue to hold home lisinopril 2.5mg QD. 11. Diabetes Mellitus Type 2 - A1c of 6.6 - D/c metformin 500mg PO QD due to patient refusal, spoke with her about the benefits 12. 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 13. Hypotension - Monitor BP and adjust diuresis as necessary Dispo: possible discharge in the next few days
--- NOTE | 2017-12-26 05:35 | PDOC.FM ---
- Objective Vital Signs & Weight: Vital Signs (12 hours) Temp Pulse Resp BP Pulse Ox 12/26/17 03:47 97.7 F 81 18 92/66 96 12/26/17 00:56 80 12 12/25/17 23:47 98.1 F 84 18 104/61 95 12/25/17 20:24 97.8 F 87 18 12/25/17 19:57 97.8 F 87 18 106/62 96 12/25/17 18:44 76 16 Weight Weight 76.748 kg I&O: 12/24/17 12/25/17 12/26/17 06:59 06:59 06:59 Intake Total 920 480 705 Output Total 1340 6100 2725 [facility] -2630 -5620 -2020 Result Diagrams: 12/16/17 11:05 12/26/17 04:41 Dx/Plan (1) Acute exacerbation of congestive heart failure Code(s): I50.9 - HEART FAILURE, UNSPECIFIED Status: Acute Qualifiers: Heart failure type: diastolic Qualified Code(s): I50.33 - Acute on chronic diastolic (congestive) heart failure (2) COPD exacerbation Code(s): J44.1 - CHRONIC OBSTRUCTIVE PULMONARY DISEASE W (ACUTE) EXACERBATION Status: Acute (3) Gout flare Code(s): M10.9 - GOUT, UNSPECIFIED Status: Acute (4) Cor pulmonale (chronic) Code(s): I27.81 - COR PULMONALE (CHRONIC) Status: Acute (5) Foot pain, left Code(s): M79.672 - PAIN IN LEFT FOOT Status: Acute (6) CHF (congestive heart failure) Code(s): I50.9 - HEART FAILURE, UNSPECIFIED Status: Chronic Qualifiers: Heart failure type: diastolic Heart failure chronicity: chronic Qualified Code(s): I50.32 - Chronic diastolic (congestive) heart failure (7) COPD (chronic obstructive pulmonary disease) Status: Chronic Qualifiers: COPD type: unspecified COPD Qualified Code(s): J44.9 - Chronic obstructive pulmonary disease, unspecified (8) Diabetes mellitus type 2 in nonobese Code(s): E11.9 - TYPE 2 DIABETES MELLITUS WITHOUT COMPLICATIONS Status: Chronic (9) Hypothyroidism Code(s): E03.9 - HYPOTHYROIDISM, UNSPECIFIED Status: Chronic Qualifiers: Hypothyroidism type: acquired Qualified Code(s): E03.9 - Hypothyroidism, unspecified (10) Pulmonary hypertension Code(s): I27.20 - PULMONARY HYPERTENSION, UNSPECIFIED Status: Chronic (11) Tobacco abuse Code(s): Z72.0 - TOBACCO USE Status: Chronic (12) Tricuspid valve regurgitation Code(s): I07.1 - RHEUMATIC TRICUSPID INSUFFICIENCY Status: Chronic Qualifiers: Cardiac valve disease etiology: etiology unspecified Qualified Code(s): I07.1 - Rheumatic tricuspid insufficiency (13) ALICIA (acute kidney injury) Code(s): N17.9 - ACUTE KIDNEY FAILURE, UNSPECIFIED Status: Resolved (14) Compensated respiratory acidosis Code(s): E87.2 - ACIDOSIS Status: Acute Plan: Cassie Forman is a 57 year old female with a history of HFPrEF who presents to the ED with a chief complaint of fluid overload and weight gain. 1. Acute on Chronic HFpEF Exacerbation - Echo on 12/17 showed EF of 55-60% and evidence of Cor Pulmonale. - Continue diuresis with IV lasix 80mg BID. Output was almost 2L overnight - Strict I&Os & daily weight checks. - Fluid restrict to 1500 mL/day. - Cardiology on board. - LE swelling is not back to baseline yet. She remains on oxygen - Dry wt 140, 7lb wt loss since admission - Consider increasing lasix to 120 2. Acute on Chronic Hypoxic Hypercapnic Respiratory Failure 2/2 COPD, Cor Pulmonale - baseline ABG on 12/17 showed 7.38/58.9/43.2 but recheck after ~2hrs on 2L showed PO2 of 63.9. - Patient will require home O2 as this is a chronic issue. She has a prior ABG revealing a similar PO2. - CM on board for help getting her home O2. Per CM, would like to be notified of planned discharge date to make sure this is in place. However, may not be possible 2/2 patient's inability to pay. - Continue on 2.5L via nasal canula. - F/u with pulmonology as an outpatient. 3. ALICIA (acute kidney injury), resolved - Will continue to monitor with AM BMPs. 4. L foot pain - Sudden onset and severity of pain raises suspicion for a possible gout flare. Per patient, she used to be on a QD medicine for gout prior to her last hospital admission when this medication was discontinued. Per chart review, patient was prescribed allopurinol following her discharge in 05/30. - Started short course of indomethacin for pain control. - Plan to restart previous dose of allopurinol 100mg QD following discharge. - Foot is mildly warm and there is not much erythema - Pt refused PT eval, PT signed off with rec to continue walking program - Reconsult PT for eval 5. Severe Tricuspid valve regurgitation - This is likely 2/2 Cor Pulmonale. - Cards on board, appreciate recs. 6. Hypothyroidism - Continue home dose synthroid 75mcg QD. 7. COPD (chronic obstructive pulmonary disease) - Patient needs home O2 due to reasons described above. - Continue with Dulera QD & albuterol PRN while in hospital. 8. Hypertension - BP has been low and well-controlled since admission. Was in the 80s/50s over the course of yesterday. Was up to 90/56 on exam this AM. - Continue to monitor as we proceed with diuresis. - Continue to hold home dose of lisinopril 2.5 mg QD. 9. Diabetes Mellitus Type 2 - A1c of 6.6 - Well-controlled so far this visit. - Continue home dose metformin 500mg PO QD. - Patient has been refusing Meformin last 3 days 10. Tobacco abuse - Director Medical Science patient regarding her need to quit smoking. 11. Hypotension - BPs 70-80/40-60 since admission - Continue diuresis and monitor BP (15) Hyperuricemia Code(s): E79.0 - HYPERURICEMIA W/O SIGNS OF INFLAM ARTHRIT AND TOPHACEOUS DIS Status: Acute (16) Hypertension Code(s): I10 - ESSENTIAL (PRIMARY) HYPERTENSION Status: Chronic Qualifiers: Hypertension type: essential hypertension Qualified Code(s): I10 - Essential (primary) hypertension - Plan Plan: Cassie Forman is a 57 year old female with a history of HFPrEF who presents to the ED with a chief complaint of fluid overload and weight gain. 1. Acute on Chronic HFpEF Exacerbation - Echo on 12/17 showed EF of 55-60% and evidence of Cor Pulmonale. - Continue diuresis with IV lasix 40mg BID. - Strict I&Os & daily weight checks. - Fluid restrict to 1500 mL/day. - Cardiology on board. - LE swelling is not back to baseline yet. She remains on oxygen - Dry wt 140, 7lb wt loss since admission - 12/25 Reduced Lasix to 40mg IV BID and d/c'ed metolazone due to contraction alkalosis 2. Acute on Chronic Hypoxic Hypercapnic Respiratory Failure 2/2 COPD, Cor Pulmonale - baseline ABG on 12/17 showed 7.38/58.9/43.2 but recheck after ~2hrs on 2L showed PO2 of 63.9. - Patient will require home O2 as this is a chronic issue. She has a prior ABG revealing a similar PO2. - CM on board for help getting her home O2. Per CM, would like to be notified of planned discharge date to make sure this is in place. However, may not be possible 2/2 patient's inability to pay. - Continue on 2L via nasal canula. - F/u with pulmonology as an outpatient. 3. ALICIA (acute kidney injury) - Cr 1.26 from 1.09 - Will continue to monitor with AM BMPs. 4. Left flank mass - Likely due to dependent edema but will obtain US to verify 5. L foot pain - resolved - Sudden onset and severity of pain raises suspicion for a possible gout flare. Per patient, she used to be on a QD medicine for gout prior to her last hospital admission when this medication was discontinued. Per chart review, patient was prescribed allopurinol following her discharge in 05/30. - Plan to restart previous dose of allopurinol 100mg QD following discharge. - Pt refused PT eval, PT signed off with rec to continue walking program 6. Severe Tricuspid valve regurgitation - This is likely 2/2 Cor Pulmonale. - Cards on board, appreciate recs. 7. Hypothyroidism - Continue home dose synthroid 75mcg QD. 8. COPD (chronic obstructive pulmonary disease) - Patient needs home O2 due to reasons described above. - Continue with Dulera QD & albuterol PRN while in hospital. 9. Hypertension - Continue to monitor as we proceed with diuresis. - Continue to hold home dose of lisinopril 2.5 mg QD. 10. Diabetes Mellitus Type 2 - A1c of 6.6 - Well-controlled so far this visit. - D/c metformin 500mg PO QD due to patient refusal, spoke with her about the benefits 11. Tobacco abuse - Director Medical Science patient regarding her need to quit smoking. 12. Hypotension - Monitor BP and adjust diuresis as necessary
[2017-12-26] MEDS: Furosemide 40 MG/4 ML VIAL SLOW IVP SCH (05:48)
[2017-12-26] MEDS: Levothyroxine Sodium 75 MCG TAB PO SCH (05:49)
[2017-12-26] MEDS: AcetaZOLAMIDE ER 500 MG CAP PO SCH ×2 (08:10→20:20)
[2017-12-26] MEDS: Enoxaparin Sodium 40 MG/0.4 ML SYRINGE SC SCH (08:11)
--- NOTE | 2017-12-26 09:15 | PDOC.CTH ---
<Marika Ortega - Last Filed: 12/26/17 09:15> Cardiology Progress Note - Subjective The pt seen and examined. No overnight events. No cardiac complaints. She is on 2LNC. She also stated she feels comfortable in her ABD because her ABD is more softer and she can eat better today. - Objective Vital Signs Temp Pulse Resp BP Pulse Ox 12/26/17 08:00 97.7 F 74 16 87/55 L 100 12/26/17 07:01 75 12 12/26/17 03:47 97.7 F 81 18 92/66 96 12/26/17 00:56 80 12 12/25/17 23:47 98.1 F 84 18 104/61 95 Weight 166 lb 6.4 oz 12/25/17 12/26/17 12/27/17 06:59 06:59 06:59 Intake Total 480 1115 Output Total 6100 4675 Balance -8677 -6694 - Physical Examination General/Neuro: alert & oriented x3 Neck: no JVD present Lungs: CTA Heart: RRR Abdomen: soft Extremities: other: (2+ pitting BLE edema with TEDs) - Telemetry Telemetry Rhythm: SR, 1st, HR 80s - Labs Result Diagrams: 12/16/17 11:05 12/26/17 04:41 Troponin/CKMB CK-MB (CK-2) 2.4 ng/mL (0-6.6) 12/16/17 11:00 Troponin I 0.011 ng/mL (< 0.028) 12/16/17 11:00 - Assessment/Plan 1. Aucte on Chronic Diastolic HF - slowly improving with Lasix 40mg IV BID with Metolazone 5mg qd; Output yesterday was > 4600ML; Lasix was reduced to 40 mg IV qd and Metolazone was d/salbador due to Alkalosis; may resume TIANA or BBlocker when her BP is more stable; BLE edema are improving with Compression stockings. 2. COPD exacerbation - stable with 2LNC 3. Severe TR - likely 2/2 Cor Pulmonale. 4. IGNACIO - managed by PCP 5. DM type 2 - managed by PCP 6. ALICIA - improving 7. Hypothyroidism - on Synthroid 8. Tobacco abuse - smoking cessation education given to the pt MAR reviewed Review of Systems - Review of Systems Constitutional: reports: no symptoms reported EENTM: reports: no symptoms reported Respiratory: reports: no symptoms reported Cardiac (ROS): reports: no symptoms reported ABD/GI: reports: see HPI <Iraj Saldanaan - Last Filed: 12/26/17 21:38> Cardiology Progress Note - Objective Vital Signs Temp Pulse Resp BP Pulse Ox 12/26/17 20:06 98.3 F 83 14 12/26/17 20:00 97.9 F 75 16 87/56 L 98 12/26/17 19:19 83 14 94 L 12/26/17 15:39 98.7 F 83 16 86/49 L 96 12/26/17 13:49 93 12 12/26/17 12:00 98.1 F 78 16 93/61 93 L Weight 166 lb 6.4 oz 12/25/17 12/26/17 12/27/17 06:59 06:59 06:59 Intake Total 480 1115 860 Output Total 6100 4643 3000 Balance -5651 -3560 -2140 - Labs Result Diagrams: 12/16/17 11:05 12/26/17 04:41 Troponin/CKMB CK-MB (CK-2) 2.4 ng/mL (0-6.6) 12/16/17 11:00 Troponin I 0.011 ng/mL (< 0.028) 12/16/17 11:00 - Assessment/Plan Pt. seen and eval. by me. I agree with the A/P by the FLAT BED OPERATOR.She continues to diurese. Chest : no wheeze or rales. Decr. BS. RRR.
--- NOTE | 2017-12-26 13:58 | ADD-PRG ---
Please see the note from Dr. Cyn Brito for which I agree. The patient was seen and evaluated, ex amined and discussed with the residents by bedside. The biggest issue on her is possibly over diuresis. It is kind of a contraction alkalosis with a hig h bicarbonate and so holding diuresis for the day and putting her on some Diamox for this, likely goi ng to be able to put her on p.o. Lasix tomorrow and probably be able to discharge her as certainly b reathing is tremendously better. She still has quite a bit of fluid in her abdomen, but her extremit ies really show no fluid and her lungs sound fairly clear. It sounds like she is not interested in s eeing a electrical and instrumentation manager in [place] for further workup on the pulmonary hypertension and so [facility] help as far as determining which medications they want to put her on. Blood press ure is still fairly low, though, but otherwise is stable.
[2017-12-27] MEDS: Ipratropium Bromide 2.5 ml Neb NEB SCH ×3 (00:33→13:15)
[2017-12-27] MEDS: Levothyroxine Sodium 75 MCG TAB PO SCH (05:41)
[2017-12-27] MEDS ORDERED: Furosemide 40 MG/4 ML VIAL SLOW IVP SCH (06:00)
[2017-12-27 06:27] LABS: BUN (Urea Nitrogen) 19 mg/dL (9.8-20.1); Calc. Creatinine Clearance 95 mL/min (70-130); Calcium 11.2 mg/dL (7.8-10.44); Estimated GFR-MDRD Greater than 90; Glucose 85 mg/dL (70-105)
[2017-12-27 06:36] LABS: Anion Gap 16 mmol/L (10-20); Carbon Dioxide 36 mmol/L (22-29); Chloride 93 mmol/L (98-107); Potassium 3.9 mmol/L (3.5-5.1); Sodium 141 mmol/L (136-145)
--- NOTE | 2017-12-27 06:47 | PDOC.FM ---
- Subjective Subjective: Patient doing well. Sitting up in bed, tolerating breakfast. Reports she feels much improved. Denies CP, SOB, dizziness, and weakness. She reports she is ready to go home. - Objective MAR Reviewed: Yes Vital Signs & Weight: Vital Signs (12 hours) Temp Pulse Resp BP Pulse Ox 12/27/17 04:00 98.2 F 72 16 92/59 L 97 12/27/17 00:33 71 12 95 12/27/17 00:00 98.0 F 73 16 107/68 95 12/26/17 20:06 98.3 F 83 14 12/26/17 20:00 97.9 F 75 16 87/56 L 98 12/26/17 19:19 83 14 94 L Weight Weight 73.074 kg I&O: 12/25/17 12/26/17 12/27/17 06:59 06:59 06:59 Intake Total 480 1115 1370 Output Total 0330 4615 4300 [facility] -5620 -3560 -2930 Result Diagrams: 12/16/17 11:05 12/27/17 05:47 <Jaimie Decker - Last Filed: 12/27/17 09:21> - Objective Vital Signs & Weight: Vital Signs (12 hours) Temp Pulse Pulse Pulse Resp BP BP 12/27/17 15:19 98.1 F 78 16 12/27/17 13:15 75 18 12/27/17 11:47 97.8 F 75 16 12/27/17 10:25 67 80 110/73 112/70 12/27/17 08:00 97.9 F 77 16 12/27/17 07:36 97.9 F 77 16 12/27/17 07:18 12/27/17 07:16 73 16 BP Pulse Ox 12/27/17 15:19 98/57 L 95 12/27/17 13:15 94 L 12/27/17 11:47 112/70 92 L 12/27/17 10:25 12/27/17 08:00 95 12/27/17 07:36 93/63 95 12/27/17 07:18 93 L 12/27/17 07:16 93 L Weight Weight 73.074 kg I&O: 12/26/17 12/27/17 12/28/17 06:59 06:59 06:59 Intake Total 1115 1370 240 Output Total 4605 6840 Balance -3560 -2930 240 Result Diagrams: 12/16/17 11:05 12/27/17 05:47 <Kalia Lino - Last Filed: 12/27/17 17:57> Phys Exam - Physical Examination Constitutional: NAD HEENT: moist MMs Respiratory: no wheezing, no rales, clear to auscultation bilateral Cardiovascular: RRR, no significant murmur Gastrointestinal: soft, non-tender + mild ascites Musculoskeletal: pulses present trace edema Neurological: normal sensation, moves all 4 limbs Psychiatric: normal affect, A&O x 3 <Jaimie Decker - Last Filed: 12/27/17 09:21> Dx/Plan (1) Acute exacerbation of congestive heart failure Code(s): I50.9 - HEART FAILURE, UNSPECIFIED Status: Acute QualifierTitle: Heart failure type: diastolic Qualified Code(s): I50.33 - Acute on chronic diastolic (congestive) heart failure (2) Cor pulmonale (chronic) Code(s): I27.81 - COR PULMONALE (CHRONIC) Status: Acute (3) Hypercalcemia Code(s): E83.52 - HYPERCALCEMIA Status: Acute (4) Metabolic alkalosis Code(s): E87.3 - ALKALOSIS Status: Acute (5) CHF (congestive heart failure) Code(s): I50.9 - HEART FAILURE, UNSPECIFIED Status: Chronic QualifierTitle: Heart failure type: diastolic Heart failure chronicity: chronic Qualified Code(s): I50.32 - Chronic diastolic (congestive) heart failure (6) COPD (chronic obstructive pulmonary disease) Status: Chronic QualifierTitle: COPD type: unspecified COPD Qualified Code(s): J44.9 - Chronic obstructive pulmonary disease, unspecified (7) Diabetes mellitus type 2 in nonobese Code(s): E11.9 - TYPE 2 DIABETES MELLITUS WITHOUT COMPLICATIONS Status: Chronic (8) Hypothyroidism Code(s): E03.9 - HYPOTHYROIDISM, UNSPECIFIED Status: Chronic QualifierTitle: Hypothyroidism type: acquired Qualified Code(s): E03.9 - Hypothyroidism, unspecified (9) Tobacco abuse Code(s): Z72.0 - TOBACCO USE Status: Chronic - Plan Plan: Acute on Chronic HFpEF Exacerbation - Echo on 12/17 showed EF of 55-60% and evidence of Cor Pulmonale. - Transitioned to PO lasix last night. Doing well. Down 13kg since admission - Fluid restrict to 1500 mL/day. - Cardiology on board. Metabolic Alkalosis likely 2/2 fluid contraction - HCO3 improved to 36 Acute on Chronic Hypoxic Hypercapnic Respiratory Failure 2/2 COPD, Cor Pulmonale - baseline ABG 12/17: 7.38/58.9/43.2 but recheck after ~2hrs on 2L: PO2 63.9. - Patient will require home O2. She has a prior ABG revealing a similar PO2. O2 for home set up for discharge. - Continue on 2L via nasal canula. - F/u with pulmonology as an outpatient. Severe Tricuspid valve regurgitation - This is likely 2/2 Cor Pulmonale. - Cards on board, appreciate recs. Hypothyroidism - Continue home dose synthroid 75mcg QD. COPD (chronic obstructive pulmonary disease) - Patient needs home O2 due to reasons described above. - Continue with Dulera QD & albuterol PRN while in hospital. Hypertension - Continue to hold home lisinopril 2.5mg QD. - Patient has been hypotensive, likely 2/2 aggressive diuresis Hypercalcemia - likely 2/2 aggressive diureses - patient asymptomatic - PTH ordered. - encourage PO hydration Diabetes Mellitus Type 2 - A1c of 6.6 - D/c metformin 500mg PO QD due to patient refusal, spoke with her about the benefits Tobacco abuse - [employer] patient regarding her need to quit smoking. Hypotension - Monitor BP and adjust diuresis as necessary ALICIA (acute kidney injury) - resolved - Will continue to monitor with AM BMPs. Dispo: d/c home today with f/u for hypercalcemia and metabolic alkalosis. <Jaimie Decker - Last Filed: 12/27/17 09:21> Attending Addendum - Attending Addendum Date/Time: 12/27/17 9556 I personally evaluated the patient and discussed the management with Dr. Decker. I agree with the History, Examination, Assessment and Plan documented above with any addition or exceptions noted below. She feels much better. Exam repeated by me and I agree with documentation above. Her PTH is elevated. Agree with discharge today and follow up with her primary care provider to be evaluated for causes of Primary vs. Secondary Hyperparathyroidism. [facility] <Kalia Lino - Last Filed: 12/27/17 17:57>
[2017-12-27] MEDS ORDERED: Furosemide 40 MG TAB PO SCH (07:00)
--- NOTE | 2017-12-27 08:24 | PDOC.CTH ---
Cardiology Progress Note - Objective Vital Signs Temp Pulse Resp BP Pulse Ox 12/27/17 07:36 97.9 F 77 16 93/63 95 12/27/17 07:18 93 L 12/27/17 07:16 73 16 93 L 12/27/17 04:00 98.2 F 72 16 92/59 L 97 12/27/17 00:33 71 12 95 12/27/17 00:00 98.0 F 73 16 107/68 95 Weight 161 lb 1.6 oz 12/26/17 12/27/17 12/28/17 06:59 06:59 06:59 Intake Total 1115 1370 Output Total 4650 4300 Balance -3560 -2930 - Physical Examination General/Neuro: alert & oriented x3, NAD Neck: no JVD present Lungs: CTA Heart: PMI normal, RRR Abdomen: NT/ND, soft Extremities: + femoral B - Labs Result Diagrams: 12/16/17 11:05 12/27/17 05:47 Troponin/CKMB CK-MB (CK-2) 2.4 ng/mL (0-6.6) 12/16/17 11:00 Troponin I 0.011 ng/mL (< 0.028) 12/16/17 11:00 - Assessment/Plan 1. RV failure 2. COPD 3. Severe TR 4. Tobacco abuse 5. IGNACIO 6. Anasarca 30 lb weight loss in the last 1 week. IMproving Alkalosis has improved. Options limited to medical therapy. Pt not interested in pulmonary HTN nelson in [place].
[2017-12-27] MEDS: Enoxaparin Sodium 40 MG/0.4 ML SYRINGE SC SCH (09:10)
[2017-12-27] MEDS ORDERED: Nitroglycerin 2% Ointment 1 INCH/1 GM Packet ONE (14:10)
[2017-12-27 15:20] VITALS: BP 98/57; TEMP 98.1
--- NOTE | 2017-12-29 02:40 | DIS-2 ---
DATE OF ADMISSION: 12/16/2017 DATE OF DISCHARGE: 12/27/2017 RESIDENT: Cyn Brito, PGY1 ADMITTING ATTENDING: Randy Huertas MD DISCHARGE ATTENDING: Kalia Lino MD CONSULTATION: Cardiology (Dr. Rodriguez). PROCEDURES: Echocardiogram: Ejection fraction 55%-60%, enlarged RA, left ventricular size decreased , severely enlarged right ventricle consistent with cor pulmonale, right ventricular systolic pressur e elevated, severe tricuspid regurgitation, small pericardial effusion. PRIMARY DIAGNOSES: 1. Acute exacerbation of congestive heart failure. 2. Metabolic alkalosis secondary to fluid contraction, resolved. 3. Acute on chronic hypoxic hypercapnic respiratory failure. SECONDARY DIAGNOSES: 1. Severe tricuspid valve regurgitation. 2. Hypothyroidism. 3. Chronic obstructive pulmonary disease. 4. Hypertension. 5. Hypercalcemia. 6. Type 2 diabetes mellitus. 7. Tobacco abuse. 8. Hypotension, resolved. 9. Acute kidney injury, resolved. DISCHARGE MEDICATIONS: 1. Albuterol 2 puffs q.4 hours. 2. Aspirin 81 daily. 3. Furosemide 40 daily. 4. Ipratropium and albuterol q.i.d. 5. Levothyroxine 75 mcg q.a.m. 6. Lisinopril 2.5 daily. DISCONTINUED MEDICATIONS: None. HISTORY OF PRESENT ILLNESS: Ms. Scott is a 57-year-old female with a past medical history signific ant for CHF with preserved ejection fraction, pulmonary hypertension, and severe tricuspid regurgitat ion who presented to the ED for fluid overload. She was 20 pounds up from her normal base weight. S he received aggressive diuresis with IV Lasix, strict I's and O's, and daily weights. Cardiology was also following her. Due to a contraction alkalosis on day , we laid off the Lasix and metolazo ne that she had also been receiving for diuresis and we gave her 2 doses of acetazolamide for her acu te on chronic hypoxic hypercapnic respiratory failure. She was on 2 liters of oxygen throughout her hospital stay. Case management set up 1 month of home oxygen for her and plan is to follow up with [facility] renteria as an outpatient. Cardiology also spoke with her about her severe tricuspid regurgitation a nd cor pulmonale. They recommended transferring to [place] for further workup and recommendations. She wished to not explore this option at this time. As for her hypertension, she was actually hypote nsive most of her stay, but stabilized prior to discharge. Her diabetes and COPD were managed with h ome medications. She also developed left foot pain secondary to gout that was treated with indometha lukas with resolution of symptoms. Plan was to restart previous dose of allopurinol following discharg e. She was found to have hypothyroidism and was started on Synthroid 75 mcg daily. DISPOSITION: Stable. DISCHARGE INSTRUCTIONS: 1. Location: Home. 2. Diet: Diabetic, heart healthy, low sodium. 3. Activity: No restrictions. 4. Follow up in clinic within a week and with Cardiology.
== END 2017-12-27 17:35 | disposition home or self-care (01) | DRG 291 ==
LOC: ERS 10:47 → 2SE 14:51
PROVIDERS: ADMIT Family Medicine; ATTEND Family Medicine
DX: I11.0 Hypertensive heart disease with heart failure (principal); J96.22 Acute and chronic respiratory failure with hypercapnia; J96.21 Acute and chronic respiratory failure with hypoxia; N17.9 Acute kidney failure, unspecified; E87.2 Acidosis; J44.1 Chronic obstructive pulmonary disease with (acute) exacerbation; E87.3 Alkalosis; I27.29 Other secondary pulmonary hypertension; I50.33 Acute on chronic diastolic (congestive) heart failure; E89.0 Postprocedural hypothyroidism; I07.1 Rheumatic tricuspid insufficiency; F17.210 Nicotine dependence, cigarettes, uncomplicated; I37.1 Nonrheumatic pulmonary valve insufficiency; E11.9 Type 2 diabetes mellitus without complications; I95.9 Hypotension, unspecified; M10.9 Gout, unspecified; G47.33 Obstructive sleep apnea (adult) (pediatric); Z80.3 Family history of malignant neoplasm of breast; Z82.49 Family history of ischemic heart disease and other diseases of the circulatory system; Z99.81 Dependence on supplemental oxygen; Z91.14 Patient's other noncompliance with medication regimen; Z79.899 Other long term (current) drug therapy; Z79.82 Long term (current) use of aspirin; Z91.81 History of falling
CPT/HCPCS: 36415; 36416; 71046; 80048; 80053; 82553; 82805; 83036; 83880; 83970; 84300; 84484; 84540; 85025; 90471; 90732; 93005; 93306; 94640; 96374; A4216; G0009; G8978-GP-CJ; G8979-GP-CJ; G8980-GP-CJ; J1650; J1940; J7644

== ENCOUNTER 2018-06-07 12:23 | Inpatient (IN) | payer SELFPAY ==
[2018-06-07] MEDS ORDERED: methylPREDNISolone Sod Succ/PF 125 MG/2 ML VIAL ONE (12:47)
[2018-06-07] MEDS ORDERED: Water For Inject, Bacteriostat 30 ML ONE (12:47)
[2018-06-07 12:56] LABS: #Eosinphils 0.1 thou/uL (0.0-0.7); #Lymphocytes 1.9 thou/uL (1.20-3.40); #Monocytes 0.6 thou/uL (0.11-0.59); #Neutrophils 3.8 thou/uL (1.40-6.50); %Basophils 0.7 % (0.0-1.0); %Eosinophils 1.1 % (0.0-10.0); %Lymphocytes 29.4 % (21.0-51.0); %Monocytes 9.9 % (0.0-10.0); Hemoglobin 13.7 g/dL (12.0-16.0); Mean Corpuscular HGB CONC 29.8 g/dL (32.0-36.0); Mean Corpuscular Hemoglobin 26.4 pg (27.0-31.0); Mean Corpuscular Volume 88.4 fL (78.0-98.0); Mean Platelet Volume 11.2 fL (7.4-10.4); Platelet Count 186 thou/uL (130-400); RBC Distribution Width 15.8 % (11.5-14.5); Red Blood Cell (RBC) Count 5.21 mill/uL (4.20-5.40); White Blood Cell (WBC) Count 6.5 thou/uL (4.8-10.8)
[2018-06-07 13:12] LABS: ALT (SGPT) 29 U/L (8-55); AST (SGOT) 41 U/L (5-34); Albumin 3.8 g/dL (3.5-5.0); Alkaline Phosphatase 191 U/L (40-150); Anion Gap 16 mmol/L (10-20); BUN (Urea Nitrogen) 42 mg/dL (9.8-20.1); Bilirubin, Total 1.2 mg/dL (0.2-1.2); Calc. Creatinine Clearance 0 mL/min (70-130); Calcium 9.3 mg/dL (7.8-10.44); Carbon Dioxide 28 mmol/L (22-29); Chloride 99 mmol/L (98-107); Estimated GFR-MDRD 64; Globulin 3.9 g/dL (2.4-3.5); Glucose 128 mg/dL (70-105); Potassium 4.5 mmol/L (3.5-5.1); Protein, Total 7.7 g/dL (6.0-8.3); Sodium 138 mmol/L (136-145)
--- NOTE | 2018-06-07 14:04 | RAD ---
PORTABLE CHEST 1 VIEW: Date: 06/07/18 Time: 1313 hours HISTORY: Dyspnea. FINDINGS:L Comparison made with exam of 12/16/17. The heart is enlarged. The lungs are well expanded without lobar consolidation, pneumothoraces, hans pulmonary edema, or pleural effusions. IMPRESSION: Cardiomegaly. POS: [place]
[2018-06-07] MEDS ORDERED: Calcium Carbonate 500 MG ChewTAB PO PRN (15:46)
[2018-06-07] MEDS ORDERED: Acetaminophen 325 MG TAB PO PRN (15:46)
[2018-06-07] MEDS ORDERED: Ondansetron PF 4 MG/2 ML Vial IVP PRN (15:46)
[2018-06-07] MEDS ORDERED: Ondansetron ODT 4 MG TAB PO PRN (15:46)
[2018-06-07] MEDS ORDERED: Nitroglycerin 0.4 MG TAB (25 Tab Bottle) PO PRN (15:51)
[2018-06-07] MEDS ORDERED: Furosemide 100 MG in Sodium Chloride 0.9% 90 ML IVPB SCH (16:00)
--- NOTE | 2018-06-07 17:02 | HP ---
PRIMARY CARE PHYSICIAN: [facility] clinic. CHIEF COMPLAINT: Shortness of breath. HISTORY OF PRESENT ILLNESS: The patient is a 57-year-old female with pulmonary hypertension with cor pulmonale and COPD, presented to the emergency room with above complaints. Over the last 1 week or so, the patient has ongoing shortness of breath that is progressively getting worse. She is short of breath on minimal exertion. She takes 40 mg Lasix without much diuresis. She also had cough, which was productive of thick whitish phlegm. She also noticed bilateral lower extremity swelling. She thinks that she has gained approximately 5 pounds or so. She is compliant with fluid and salt restriction. No fever or chills reported. No nausea, vomiting, chest pain, palpitations, or syncope reported. In the emergency room, initial vital signs showed temperature 97.9, respirations 19, pulse rate of 107 with blood pressure 108/61, and O2 saturation 90% on room air. Her blood pressure in the ER was 87/60. Chest x-ray showed pulmonary vascular congestion. She received DuoNebs and Solu-Medrol in the emergency room. Lasix was not administered due to blood pressure on the lower side. The patient has also lost her appetite due to worsening abdominal distention. No abdominal pain, nausea, vomiting, diarrhea, or constipation reported. The patient's oxygen on room air was 88%. PAST MEDICAL HISTORY: 1. COPD with chronic respiratory failure, on home oxygen. 2. Pulmonary hypertension with right-sided heart failure/chronic diastolic heart failure/severe tricuspid regurgitation. 3. Hypertension. 4. Tobacco dependence. 5. Diabetes mellitus, type 2, diet controlled. 6. Hyperparathyroidism. 7. Hypothyroidism. PAST SURGICAL HISTORY: Thyroidectomy. ALLERGIES: NO KNOWN DRUG ALLERGIES. CURRENT HOME MEDICATIONS: Per the patient's report; 1. Albuterol inhaler as needed. 2. Aspirin 81 mg daily. 3. Lasix 40 mg daily. 4. DuoNebs as needed. 5. Levothyroxine 75 mcg daily. 6. Lisinopril 2.5 mg daily. SOCIAL HISTORY: The patient currently lives at home with her family. She continues to smoke up to half pack a day. No alcohol or drug use reported. FAMILY HISTORY: Mother with lung cancer. Hypertension runs in several family members. REVIEW OF SYSTEMS: All other review of systems was reviewed and were found negative. PHYSICAL EXAMINATION: VITAL SIGNS: As discussed above. GENERAL: A 57-year-old female, in [id number] respiratory distress, able to complete short phrases. HEENT: Head, atraumatic and normocephalic. Sclerae anicteric. Moist mucous membranes. No oral lesion. NECK: Supple. JVP elevated. No carotid bruit. LUNGS: Showed bibasilar rales with accessory muscle use. There was minimal wheezing as well. There was scattered rhonchi. HEART: S1 and S2 present. A 3/6 systolic murmur over the left lateral sternal border. A 2/6 systolic murmur over the mitral area. No heaves or pulsation. ABDOMEN: Distended with shifting dullness. No rebound or guarding. No costovertebral angle tenderness. EXTREMITIES: 2+ edema in bilateral lower extremities. No calf tenderness. SKIN: Warm and dry. LYMPH NODES: No palpable lymph nodes in the neck. PERIPHERAL VASCULAR: Radial pulses palpable bilaterally, low volume. MUSCULOSKELETAL: No joint swelling or tenderness. NEUROLOGIC: Grossly nonfocal. Moves all 4 extremities. PSYCHIATRIC: Alert, awake, and oriented x3. LABORATORY DATA: WBC 6.5, hemoglobin 13.7, hematocrit 46, and platelet of 186. Chemistry showed sodium 138, potassium 4.5, chloride 99, bicarb 28, BUN 42, creatinine 1.08, and glucose is 128. Alkaline phosphatase 191 and AST 41. BNP 613. Troponin 0.012. Chest x-ray, by my review, as discussed above. EKG by my review showed sinus rhythm with right axis deviation with biatrial enlargement. IMPRESSION: 1. Acute on chronic hypoxic respiratory failure secondary to congestive heart failure/chronic obstructive pulmonary disease exacerbation. 2. Acute on chronic right-sided heart failure exacerbation. 3. Pulmonary hypertension with severe tricuspid valve regurgitation. 4. Hypertension. The patient is currently hypotensive. 5. Ongoing tobacco abuse. The patient was counseled. 6. Diabetes mellitus, type 2, diet controlled. 7. Hyperparathyroidism, diagnosed in December of this year. 8. Prerenal azotemia. 9. Chronic kidney disease, stage 2. 10. Abnormal liver function tests, probably secondary to passive hepatic congestion. 11. History of cannabis abuse. 12. Hypothyroidism, following thyroidectomy. 13. Mild protein-calorie malnutrition. PLAN: The patient will be monitored on the telemetry unit. The patient is intravascularly depleted. We will start her on gentle diuresis with Lasix drip. We will hold TIANA inhibitor for now due to low blood pressure. Avoid beta blockers due to COPD. We will add low-dose steroid with nebulizer treatment. We will add oral doxycycline as well. Daily labs. Fluid restriction. The patient was counseled to quit smoking. The patient will require 3 to 4 days for stabilization. She currently follows heart failure clinic and was seen earlier this month per the patient's report. Job ID: [id number]
[2018-06-07 17:15] VITALS: BMI 27.3
[2018-06-07] MEDS: Doxycycline 100 MG CAP PO SCH (21:23)
[2018-06-08 05:03] LABS: Phosphorus 4.2 mg/dL (2.3-4.7)
[2018-06-08 05:05] LABS: ALT (SGPT) 28 U/L (8-55); AST (SGOT) 32 U/L (5-34); Albumin 3.5 g/dL (3.5-5.0); Alkaline Phosphatase 155 U/L (40-150); Anion Gap 15 mmol/L (10-20); BUN (Urea Nitrogen) 44 mg/dL (9.8-20.1); Bilirubin, Total 1.1 mg/dL (0.2-1.2); Calc. Creatinine Clearance 77 mL/min (70-130); Calcium 9.5 mg/dL (7.8-10.44); Carbon Dioxide 30 mmol/L (22-29); Chloride 100 mmol/L (98-107); Estimated GFR-MDRD 72; Globulin 3.8 g/dL (2.4-3.5); Glucose 135 mg/dL (70-105); Magnesium 2.1 mg/dL (1.6-2.6); Potassium 5.4 mmol/L (3.5-5.1); Protein, Total 7.3 g/dL (6.0-8.3); Sodium 140 mmol/L (136-145)
[2018-06-08] MEDS: Levothyroxine Sodium 75 MCG TAB PO SCH (05:54)
[2018-06-08] MEDS: Famotidine 20 MG TAB PO SCH ×2 (08:33→21:30)
[2018-06-08] MEDS: Doxycycline 100 MG CAP PO SCH ×2 (08:34→21:29)
[2018-06-08] MEDS: Enoxaparin Sodium 30 MG/0.3 ML SYRINGE SC SCH (09:47)
--- NOTE | 2018-06-08 14:02 | CON ---
DATE OF CONSULTATION: REASON FOR CONSULTATION: Shortness of breath and right-sided failure. HISTORY OF PRESENT ILLNESS: Ms. Scott is a 57-year-old woman with a past history of RV failure. She has severely dilated right ventricle. She likely has a history of COPD in addition to sleep apnea. She continues to smoke. She has had multiple visits to the hospital for recurrent shortness of breath. She states she has had increased shortness of breath in addition to lower extremity edema and abdominal distention. She has been diuresed and symptoms have improved. In the past, I have offered a transfer for Ms. Scott to [place] for evaluation. She appears to have wide-open tricuspid regurgitation on the echo with normal LVEF. Left ventricular side appears a small and under filled. Unfortunately, she has not followed up in the office, and due to financial constraints, is unable to travel to [place]. PAST MEDICAL HISTORY: COPD, likely obstructive sleep apnea, hypertension, continued tobacco abuse, diabetes mellitus, hyperparathyroidism, hypothyroidism, and thyroidectomy. ALLERGIES: NONE. HOME MEDICATIONS: Include: 1. Aspirin. 2. Lasix. 3. DuoNeb. 4. Levothyroxine. 5. Lisinopril. 6. Albuterol inhaler. SOCIAL HISTORY: Positive tobacco use. FAMILY HISTORY: Negative for CAD. REVIEW OF SYSTEMS: A 10-point review of systems is reviewed and as above, otherwise negative. PHYSICAL EXAMINATION: GENERAL: Patient is a pleasant female, who is in no acute distress. The patient appears their stated age. VITAL SIGNS: Blood pressure 102/57, pulse 89, and temperature 97.9. NEUROLOGIC: The patient is alert and oriented x3 with no focal neurologic deficits. HEENT: Sclerae without icterus. Mouth has moist mucous membranes with normal pallor. NECK: No JVD. Carotid upstroke brisk. No bruits bilaterally. LUNGS: Clear to auscultation with unlabored respirations. BACK: No scoliosis or kyphosis. CARDIAC: Regular rate and rhythm with normal S1 and S2. No S3 or S4 noted. No significant rubs, murmurs, thrills, or gallops noted throughout the precordium. PMI is not displaced. There is no parasternal heave. ABDOMEN: Soft, nontender. No peritoneal signs present. No hepatosplenomegaly. No abnormal striae. Distended with positive fluid wave. EXTREMITIES: 2+ femoral and 2+ dorsalis pedis pulses. No cyanosis or clubbing. 1+ pitting edema. SKIN: No gross abnormalities. PERTINENT LABORATORY DATA: Hemoglobin 13.7. Creatinine 0.97. BNP is 613. IMPRESSION: 1. Right-sided failure. 2. Shortness of breath. 3. Tobacco abuse. 4. Chronic obstructive pulmonary disease. RECOMMENDATIONS: I would recommend low dose of diuretic therapy given her blood pressure. She does appear to be overloaded, but likely due to right-sided failure. I did halfway house counselor her on sodium and fluid restriction. We will continue aspirin as prescribed. At this point, options appear limited. Job ID: [id number]
[2018-06-08] MEDS ORDERED: Furosemide 100 MG in Sodium Chloride 0.9% 90 ML IVPB SCH (14:30)
[2018-06-08 14:33] LABS: Anion Gap 14 mmol/L (10-20); BUN (Urea Nitrogen) 46 mg/dL (9.8-20.1); Calc. Creatinine Clearance 75 mL/min (70-130); Calcium 9.5 mg/dL (7.8-10.44); Carbon Dioxide 30 mmol/L (22-29); Chloride 100 mmol/L (98-107); Estimated GFR-MDRD 70; Glucose 142 mg/dL (70-105); Potassium 4.9 mmol/L (3.5-5.1); Sodium 139 mmol/L (136-145)
--- NOTE | 2018-06-08 22:48 | PDOC.PN ---
- Subjective Encounter Start Date: 06/08/18 Encounter Start Time: 14:15 Patient seen and examined for CHF flare. SOB improving. No CP/palpitations. Still has SOB on mild exertion. No new complaints. No overnight events - Objective Resuscitation Status - Order Detail: 06/07/18 15:46 Resuscitation Status Routine Resuscitation Status: FULL: Full Resuscitation MAR Reviewed: Yes Vital Signs & Weight: Vital Signs (12 hours) Temp Pulse Resp BP BP BP BP 06/08/18 22:38 85 16 06/08/18 20:20 97.8 F 88 16 100/55 L 104/58 L 104/59 L 103/56 L 06/08/18 18:50 89 18 06/08/18 15:41 84 18 95/61 06/08/18 13:34 82 16 06/08/18 11:44 98.0 F 82 18 95/57 L Pulse Ox 06/08/18 22:38 91 L 06/08/18 20:20 95 06/08/18 18:50 92 L 06/08/18 15:41 100 06/08/18 13:34 94 L 06/08/18 11:44 93 L Weight Weight 162 lb 14.4 oz I&O: 06/07/18 06/08/18 06/09/18 06:59 06:59 06:59 Intake Total 298 720 Output Total 1200 900 Balance -902 -180 Result Diagrams: 06/09/18 05:02 06/09/18 05:02 EKG Reviewed by me: Yes (Tele SR) Phys Exam - Physical Examination Constitutional: NAD Neck: supple JVD + Respiratory: no wheezing Bibasilar rales with scat rhonchi, Min accesory muscle use Cardiovascular: RRR, no rub 3/6 SM over T area, no heaves/pulsations Gastrointestinal: soft, non-tender, no distention, positive bowel sounds Musculoskeletal: no edema Neurological: non-focal, normal sensation, moves all 4 limbs Psychiatric: normal affect, A&O x 3 Dx/Plan - Plan DVT proph w/SCDs IMPRESSION: 1. Acute on chronic hypoxic respiratory failure secondary to CHF/COPD exacerbation. 2. Acute on chronic right-sided heart failure exacerbation. 3. Pulmonary hypertension with severe tricuspid valve regurgitation. 4. Hypertension. 5. Ongoing tobacco abuse -counseled. 6. Diabetes mellitus, type 2, diet controlled. 7. Hyperparathyroidism, diagnosed in December of this year. 8. Prerenal azotemia. 9. Chronic kidney disease, stage 2. 10. Abnormal liver function tests, probably secondary to passive hepatic congestion. 11. History of cannabis abuse. 12. Hypothyroidism, following thyroidectomy. 13. Mild protein-calorie malnutrition. PLAN: Reduce Lasix drip to 3 mg/hr Cont Steroids/Nebs Not on ACEI/Aldactone due to hypotenison Not on BB due to COPD AM labs Repeat BMP later today Review of Systems - Review of Systems Gastrointestinal: negative: Nausea, Vomiting, Abdominal Pain, Diarrhea, Constipation, Melena, Hematochezia, Other Genitourinary: negative: Dysuria, Frequency, Incontinence, Hematuria, Retention , Other - Medications/Allergies Allergies/Adverse Reactions: Allergies Allergy/AdvReac Type Severity Reaction Status Date / Time No Known Allergies Allergy Verified 06/08/17 18:44 Medications: Current Medications Acetaminophen (Tylenol) 650 mg PO Q4H PRN PRN Reason: Headache/Fever/Mild Pain (1-3) Albuterol/Ipratropium (Duoneb) 3 ml NEB [id number] [facility] Last Admin: 06/08/18 22:38 Dose: 3 ml Aspirin (Aspirin Chewable) 81 mg PO DAILY [facility] Last Admin: 06/08/18 08:34 Dose: 81 mg Calcium Carbonate (Tums) 1,000 mg PO Q4H PRN PRN Reason: Heartburn or Indigestion Doxycycline Hyclate (Vibramycin) 100 mg PO BID [facility] Last Admin: 06/08/18 21:29 Dose: 100 mg Enoxaparin Sodium (Lovenox) 30 mg SC 0900 [facility] Last Admin: 06/08/18 09:47 Dose: 30 mg Famotidine (Pepcid) 20 mg PO BID [facility] Last Admin: 06/08/18 21:30 Dose: 20 mg Furosemide 100 mg/ Sodium (Chloride) 100 mls @ 3 mls/hr IVPB INF [facility] Last Admin: 06/08/18 16:15 Dose: 100 mls Levothyroxine Sodium (Synthroid) 75 mcg PO 0600 [facility] Last Admin: 06/08/18 05:54 Dose: 75 mcg Methylprednisolone Sodium Succinate (Solu-Medrol) 20 mg IVP Q8HR [facility] Last Admin: 06/08/18 21:35 Dose: 20 mg Nitroglycerin (Nitrostat) 0.4 mg PO Q5MIN PRN PRN Reason: Chest Pain Ondansetron HCl (Zofran Odt) 4 mg PO Q6H PRN PRN Reason: Nausea/Vomiting Ondansetron HCl (Zofran) 4 mg IVP Q6H PRN PRN Reason: Nausea/Vomiting Sodium Chloride (Flush - Normal Saline) 10 ml IVF PRN PRN PRN Reason: Saline Flush Last Admin: 06/08/18 21:36 Dose: 10 ml
[2018-06-09] MEDS: Levothyroxine Sodium 75 MCG TAB PO SCH (05:12)
[2018-06-09 05:25] LABS: #Lymphocytes 0.7 thou/uL (1.20-3.40); #Monocytes 0.2 thou/uL (0.11-0.59); #Neutrophils 4.1 thou/uL (1.40-6.50); %Basophils 0.6 % (0.0-1.0); %Eosinophils 0.2 % (0.0-10.0); %Monocytes 4.2 % (0.0-10.0); Hemoglobin 12.2 g/dL (12.0-16.0); Mean Corpuscular HGB CONC 29.9 g/dL (32.0-36.0); Mean Corpuscular Hemoglobin 26.4 pg (27.0-31.0); Mean Corpuscular Volume 88.2 fL (78.0-98.0); Mean Platelet Volume 11.1 fL (7.4-10.4); Platelet Count 177 thou/uL (130-400); RBC Distribution Width 15.7 % (11.5-14.5); Red Blood Cell (RBC) Count 4.62 mill/uL (4.20-5.40)
[2018-06-09 05:44] LABS: ALT (SGPT) 22 U/L (8-55); AST (SGOT) 23 U/L (5-34); Albumin 3.3 g/dL (3.5-5.0); Alkaline Phosphatase 129 U/L (40-150); Anion Gap 14 mmol/L (10-20); BUN (Urea Nitrogen) 51 mg/dL (9.8-20.1); Bilirubin, Total 0.9 mg/dL (0.2-1.2); Calc. Creatinine Clearance 130 mL/min (70-130); Calcium 9.5 mg/dL (7.8-10.44); Carbon Dioxide 30 mmol/L (22-29); Chloride 100 mmol/L (98-107); Estimated GFR-MDRD 77; Globulin 3.4 g/dL (2.4-3.5); Glucose 135 mg/dL (70-105); Magnesium 2.2 mg/dL (1.6-2.6); Potassium 4.8 mmol/L (3.5-5.1); Protein, Total 6.7 g/dL (6.0-8.3); Sodium 139 mmol/L (136-145)
[2018-06-09] MEDS: Famotidine 20 MG TAB PO SCH ×2 (10:13→21:07)
[2018-06-09] MEDS: Doxycycline 100 MG CAP PO SCH ×2 (10:13→21:07)
[2018-06-09] MEDS: Enoxaparin Sodium 30 MG/0.3 ML SYRINGE SC SCH (10:14)
[2018-06-09] MEDS ORDERED: Milk Of Magnesia 30 ML UDCUP PO PRN (16:20)
[2018-06-09] MEDS ORDERED: Bisacodyl 10 MG SUPP PR PRN (16:22)
--- NOTE | 2018-06-09 16:38 | PDOC.PN ---
- Subjective Encounter Start Date: 06/09/18 Encounter Start Time: 16:36 Subjective: Feels better than on admission, though not yet to her "normal" -: Reviewed history with her, [facility] is "not an option" -: Complains of severe constipation - Objective Resuscitation Status - Order Detail: 06/07/18 15:46 Resuscitation Status Routine Resuscitation Status: FULL: Full Resuscitation Vital Signs & Weight: Vital Signs (12 hours) Temp Pulse Pulse Pulse Resp BP BP 06/09/18 14:08 87 16 06/09/18 12:00 96.8 F L 84 18 06/09/18 11:40 83 84 99/59 L 110/60 06/09/18 10:14 80 16 06/09/18 08:05 06/09/18 08:04 75 16 06/09/18 08:00 96.6 F L 85 18 BP BP Pulse Ox Pulse Ox Pulse Ox 06/09/18 14:08 94 L 06/09/18 12:00 110/60 95 06/09/18 11:40 89 L 91 L 06/09/18 10:14 94 L 06/09/18 08:05 95 06/09/18 08:04 95 06/09/18 08:00 98/57 L 95 Weight Weight 262 lb 6.4 oz I&O: 06/08/18 06/09/18 06/10/18 06:59 06:59 06:59 Intake Total 298 1250 240 Output Total 1200 1750 Balance -902 -500 240 Result Diagrams: 06/09/18 05:02 06/09/18 05:02 Phys Exam - Physical Examination Constitutional: NAD Sitting up in bed, speaking in short sentences HEENT: PERRLA, moist MMs Neck: supple, full ROM Decrease BS at bases Cardiovascular: RRR Distention present, nontender Minimal edema Neurological: non-focal, moves all 4 limbs Psychiatric: normal affect, A&O x 3 Skin: no rash Dx/Plan (1) Right-sided congestive heart failure Code(s): I50.810 - RIGHT HEART FAILURE, UNSPECIFIED Status: Acute (2) Acute exacerbation of congestive heart failure Code(s): I50.9 - HEART FAILURE, UNSPECIFIED Status: Acute Qualifiers: Heart failure type: diastolic Qualified Code(s): I50.33 - Acute on chronic diastolic (congestive) heart failure (3) COPD exacerbation Code(s): J44.1 - CHRONIC OBSTRUCTIVE PULMONARY DISEASE W (ACUTE) EXACERBATION Status: Acute Comment: On oral steroids and nebs, sating well on 2L O2 (4) Cor pulmonale (chronic) Code(s): I27.81 - COR PULMONALE (CHRONIC) Status: Acute (5) Diabetes type 2, controlled Code(s): E11.9 - TYPE 2 DIABETES MELLITUS WITHOUT COMPLICATIONS Status: Chronic Qualifiers: Diabetes mellitus senior care insulin use: without upper lining cementer use Diabetes mellitus complication status: without complication Qualified Code(s): E11.9 - Type 2 diabetes mellitus without complications (6) Hypertension Code(s): I10 - ESSENTIAL (PRIMARY) HYPERTENSION Status: Chronic Qualifiers: Hypertension type: essential hypertension Qualified Code(s): I10 - Essential (primary) hypertension (7) Hypothyroidism Code(s): E03.9 - HYPOTHYROIDISM, UNSPECIFIED Status: Chronic Qualifiers: Hypothyroidism type: acquired Qualified Code(s): E03.9 - Hypothyroidism, unspecified (8) Severe tricuspid regurgitation Code(s): I07.1 - RHEUMATIC TRICUSPID INSUFFICIENCY Status: Chronic (9) Tobacco abuse Code(s): Z72.0 - TOBACCO USE Status: Chronic (10) Tricuspid valve regurgitation Code(s): I07.1 - RHEUMATIC TRICUSPID INSUFFICIENCY Status: Chronic Qualifiers: Cardiac valve disease etiology: etiology unspecified Qualified Code(s): I07.1 - Rheumatic tricuspid insufficiency - Plan * IMPRESSION: 1. Acute on chronic hypoxic respiratory failure secondary to CHF/COPD exacerbation. 2. Acute on chronic right-sided heart failure exacerbation. 3. Pulmonary hypertension with severe tricuspid valve regurgitation. 4. Hypertension. 5. Ongoing tobacco abuse 6. Diabetes mellitus, type 2, diet controlled. 7. Hyperparathyroidism, diagnosed in December of this year. 8. Prerenal azotemia. 9. Chronic kidney disease, stage 2. 10. Abnormal liver function tests, probably secondary to passive hepatic congestion. 11. History of cannabis abuse. 12. Hypothyroidism, following thyroidectomy. 13. Mild protein-calorie malnutrition. 14. Constipation (new) PLAN: Stop lasix gtt and use 20mg IV bid, likely to oral tomorrow Cont Steroids/Nebs, transition to po steroids Not on ACEI/Aldactone due to hypotension Not on BB due to COPD AM labs ordered Demond ADAME for constipation
[2018-06-09] MEDS ORDERED: Furosemide 20 MG/2 ML VIAL SLOW IVP SCH (16:45)
[2018-06-09] MEDS ORDERED: Milk Of Magnesia 30 ML UDCUP PO SCH (16:45)
--- NOTE | 2018-06-09 17:47 | PDOC.CTH ---
Cardiology Progress Note - Subjective Pt continues with SOB. Some diuresis noted overnight but marginal BP - Objective Vital Signs Temp Pulse Pulse Pulse Resp BP BP 06/09/18 16:00 96.1 F L 95 18 06/09/18 14:08 87 16 06/09/18 12:00 96.8 F L 84 18 06/09/18 11:40 83 84 99/59 L 110/60 06/09/18 10:14 80 16 06/09/18 08:05 06/09/18 08:04 75 16 06/09/18 08:00 96.6 F L 85 18 BP BP Pulse Ox Pulse Ox Pulse Ox 06/09/18 16:00 99/61 95 06/09/18 14:08 94 L 06/09/18 12:00 110/60 95 06/09/18 11:40 89 L 91 L 06/09/18 10:14 94 L 06/09/18 08:05 95 06/09/18 08:04 95 06/09/18 08:00 98/57 L 95 Weight 262 lb 6.4 oz 06/08/18 06/09/18 06/10/18 06:59 06:59 06:59 Intake Total 298 1250 240 Output Total 1200 1750 Balance -902 -500 240 - Physical Examination General/Neuro: alert & oriented x3, NAD Neck: carotid US brisk, no JVD present Lungs: CTA, unlabored respirations Heart: RRR, other: (prominent S2) Abdomen: NT/ND, soft, other: (distended) Extremities: + edema B - Labs Result Diagrams: 06/09/18 05:02 06/09/18 05:02 Troponin/CKMB Troponin I 0.012 ng/mL (< 0.028) 06/07/18 12:40 - Assessment/Plan 1. Severe P HTN 2. Continued tobacco use 3. Likely severe IGNACIO given signs/symptoms Pt has not been tested for IGNACIO. States she stops breathing at night May involve the child abuse worker to help with funds for sleep study and CPAP machine Stop smoking Again, discussed option of transfer to [place] for a nelson. She declines Continue with lasix Options are limited and likely only based on symptoms relief.
[2018-06-09] MEDS: Senokot S 8.6-50 MG TAB PO SCH (21:07)
[2018-06-10 05:37] LABS: #Lymphocytes 1.2 thou/uL (1.20-3.40); #Monocytes 0.5 thou/uL (0.11-0.59); #Neutrophils 4.3 thou/uL (1.40-6.50); %Basophils 0.4 % (0.0-1.0); %Lymphocytes 20.1 % (21.0-51.0); %Monocytes 8.5 % (0.0-10.0); Hemoglobin 12.5 g/dL (12.0-16.0); Mean Corpuscular HGB CONC 30.6 g/dL (32.0-36.0); Mean Corpuscular Hemoglobin 27.1 pg (27.0-31.0); Mean Corpuscular Volume 88.5 fL (78.0-98.0); Platelet Count 172 thou/uL (130-400); RBC Distribution Width 15.5 % (11.5-14.5); Red Blood Cell (RBC) Count 4.61 mill/uL (4.20-5.40); White Blood Cell (WBC) Count 6.1 thou/uL (4.8-10.8)
[2018-06-10 05:59] LABS: ALT (SGPT) 23 U/L (8-55); AST (SGOT) 24 U/L (5-34); Albumin 3.4 g/dL (3.5-5.0); Alkaline Phosphatase 133 U/L (40-150); Anion Gap 11 mmol/L (10-20); BUN (Urea Nitrogen) 48 mg/dL (9.8-20.1); Bilirubin, Total 1.1 mg/dL (0.2-1.2); Calc. Creatinine Clearance 130 mL/min (70-130); Calcium 9.7 mg/dL (7.8-10.44); Carbon Dioxide 34 mmol/L (22-29); Chloride 99 mmol/L (98-107); Estimated GFR-MDRD 77; Globulin 3.3 g/dL (2.4-3.5); Glucose 102 mg/dL (70-105); Magnesium 2.5 mg/dL (1.6-2.6); Potassium 4.5 mmol/L (3.5-5.1); Protein, Total 6.7 g/dL (6.0-8.3); Sodium 139 mmol/L (136-145)
[2018-06-10] MEDS: Levothyroxine Sodium 75 MCG TAB PO SCH (06:10)
[2018-06-10] MEDS: Furosemide 20 MG/2 ML VIAL SLOW IVP SCH ×2 (06:12→15:21)
--- NOTE | 2018-06-10 06:16 | PDOC.CTH ---
Cardiology Progress Note - Subjective Doing well. Slowly improving - Objective Vital Signs Temp Pulse Resp BP BP Pulse Ox 06/10/18 05:42 97.9 F 86 16 102/66 93 L 06/10/18 02:19 90 16 93 L 06/09/18 22:23 91 16 91 L 06/09/18 20:00 96.7 F L 94 16 102/60 94 L 06/09/18 19:08 83 16 93 L Weight 262 lb 6.4 oz 06/08/18 06/09/18 06/10/18 06:59 06:59 06:59 Intake Total 298 1250 1725 Output Total 1200 1750 2500 Balance -586 -676 -053 - Physical Examination General/Neuro: alert & oriented x3, NAD Neck: carotid US brisk Lungs: CTA, unlabored respirations Heart: PMI normal, RRR Abdomen: soft, other: (distended) Extremities: + edema B - Labs Result Diagrams: 06/10/18 05:08 06/10/18 05:08 Troponin/CKMB Troponin I 0.012 ng/mL (< 0.028) 06/07/18 12:40 - Assessment/Plan 1. Severe P HTN 2. Continued tobacco use 3. Likely severe IGNACIO given signs/symptoms Pt with some diuresis on low dose lasix BP has been marginal but stable At this point, recommend symptomatic treatment Pt not interested in further MEZA at this time. Consult case management for research assistant with sleep study, CPAP
[2018-06-10] MEDS ORDERED: predniSONE 20 MG TAB PO SCH (08:00)
[2018-06-10] MEDS ORDERED: Polyethylene Glycol 3350 17 GM Packet PO SCH (09:00)
[2018-06-10] MEDS: Doxycycline 100 MG CAP PO SCH ×2 (09:19→20:06)
[2018-06-10] MEDS: Senokot S 8.6-50 MG TAB PO SCH ×2 (09:20→20:06)
[2018-06-10] MEDS: Famotidine 20 MG TAB PO SCH ×2 (09:20→20:05)
[2018-06-10] MEDS: Enoxaparin Sodium 30 MG/0.3 ML SYRINGE SC SCH (09:31)
[2018-06-10 20:18] VITALS: BP 117/61; TEMP 98.1
--- NOTE | 2018-06-11 18:54 | DIS ---
DATE OF ADMISSION: 06/07/2018 DATE OF DISCHARGE: 06/10/2018 PRIMARY CARE PHYSICIAN: [facility]. CHIEF COMPLAINT: Shortness of breath. PRINCIPAL DIAGNOSES ON ADMISSION: Ekjyq-oh-fwnqrmb hypoxic respiratory failures secondary to right heart failure and chronic obstructive pulmonary disease exacerbation. DISCHARGE DIAGNOSES: 1. Oozgw-st-gvfcbdk hypoxic respiratory failures secondary to decompensated right-sided congestive heart failure in the setting of severe tricuspid regurgitation, in combination with chronic obstructive pulmonary disease with acute exacerbation. 2. Chronic obstructive pulmonary disease with acute exacerbation. 3. Ustgm-qu-aievvft right-sided heart failure. 4. Pulmonary hypertension with severe tricuspid valve regurgitation. 5. Cor pulmonale. 6. Essential hypertension. 7. Tobacco dependence, ongoing. 8. Type 2 diabetes, diet controlled. 9. History of hyperparathyroidism, diagnosed in December 2017. 10. Chronic kidney disease, stage 2. 11. Abnormal liver function test, likely secondary to passive hepatic congestion. 12. History of cannabis use. 13. Hypothyroidism, in the context of previous thyroidectomy. 14. Mild protein-calorie malnutrition. CONSULTS DURING HOSPITAL STAY: Cardiology, Oliver Rodriguez MD HOSPITAL COURSE: Ms. Scott is a 57-year-old female with long-standing history of cor pulmonale/right-sided heart failure in the context of severe tricuspid regurgitation. She has a history of COPD as well. She has been referred on multiple occasions to [place], but due to transportation and financial issues, it is not opened to considering treatment in [place] for her tricuspid regurgitation. Additionally, she has been referred on multiple occasions for sleep study as CPAP therapy would be significant benefit for her. Likewise, she has not been able to complete the . On this occasion, she reported one-week of increasing dyspnea, becoming increasingly severe. She took her usual 40 mg orally of Lasix at home without much diuresis. She also noted cough with some whitish phlegm. Bilateral lower extremities edema were present. She noted a 5 pound weight gain. She was subsequently admitted to the hospital for additional evaluation and care. The patient is only diuresed with IV Lasix with fluid removal, the patient is unable to eat more effectively, ambulate, generally shows slow and modest improvement. She was treated as well for COPD with acute exacerbation with antibiotics and steroids, which were completed over the next few days at home. Unfortunately from heart failure standpoint, no other modalities are available to her with the exception of referral for her tricuspid regurgitation, which as above has not been possible for her, likewise the sleep study . Palliative Care was also consulted during her hospital stay, they have seen her in the past, and maintained contact with the patient. On the day of discharge, the patient was sitting up, eating dinner in the room. She feels she has improved relative to admission. Abdominal distention is present, but is at baseline. Lower extremity edema is improved, without significant edema in fact on my exam. Lungs gilmore are clear to auscultation bilaterally. FOLLOWUP: Followup was discussed with her, this will include followup at the heart failure clinic. DISCHARGE PLAN: Discharge to home. MEDICATIONS AT DISCHARGE: 1. Doxycycline 100 mg p.o. twice daily for 3 additional days. 2. Prednisone 10 mg p.o. daily for 3 additional days. 3. Aspirin 81 mg p.o. once daily. 4. Levothyroxine 75 mcg p.o. once daily. 5. ProAir HFA 2 puffs q.4 hourly as needed. 6. Furosemide 40 mg p.o. once daily. 7. DuoNeb 4 times daily as needed. 8. Lisinopril 2.5 mg p.o. once daily. DIET: Heart healthy/no added salt. TIME SPENT: Total time spent on discharge is 45 minutes. Job ID: [id number]
== END 2018-06-10 20:12 | disposition home or self-care (01) | DRG 291 ==
LOC: ERS 12:23 → 2NO 15:41
PROVIDERS: ADMIT Internal Medicine; ATTEND Internal Medicine
DX: I13.0 Hypertensive heart and chronic kidney disease with heart failure and stage 1 through stage 4 chronic kidney disease, or unspecified chronic kidney disease (principal); J96.21 Acute and chronic respiratory failure with hypoxia; J44.1 Chronic obstructive pulmonary disease with (acute) exacerbation; N25.81 Secondary hyperparathyroidism of renal origin; I50.32 Chronic diastolic (congestive) heart failure; E44.1 Mild protein-calorie malnutrition; Z51.5 Encounter for palliative care; I50.813 Acute on chronic right heart failure; I27.29 Other secondary pulmonary hypertension; E11.22 Type 2 diabetes mellitus with diabetic chronic kidney disease; N18.2 Chronic kidney disease, stage 2 (mild); I07.1 Rheumatic tricuspid insufficiency; I27.81 Cor pulmonale (chronic); F17.210 Nicotine dependence, cigarettes, uncomplicated; E89.0 Postprocedural hypothyroidism; Z68.27 Body mass index [BMI] 27.0-27.9, adult; K76.1 Chronic passive congestion of liver; G47.33 Obstructive sleep apnea (adult) (pediatric); K59.00 Constipation, unspecified; Z99.81 Dependence on supplemental oxygen; Z79.82 Long term (current) use of aspirin; Z79.899 Other long term (current) drug therapy
CPT/HCPCS: 36415; 71045; 80053; 83735; 83880; 84100; 84484; 85025; 93798; 94640; 94760; 96374; J1650; J1940; J2920; J2930; J7050; J7506; J7620

== ENCOUNTER 2018-06-13 09:20 | Emergency (ER) | payer SELFPAY ==
[2018-06-13] MEDS ORDERED: Ketorolac Tromethamine 60 MG/2 ML VIAL ONE (10:41)
--- NOTE | 2018-06-13 11:10 | RAD ---
LEFT FOOT RADIOGRAPHS 3 VIEWS: DATE: 06/13/2018. PROVIDED CLINICAL HISTORY: Left foot pain. FINDINGS: No evidence for a fracture or other acute osseous abnormality. If there is persistent clinical leta rn, conservative management and followup imaging are advised. IMPRESSION: As above. POS: KAYLIE
[2018-06-13 11:35] LABS: #Lymphocytes 1.9 thou/uL (1.20-3.40); #Monocytes 0.8 thou/uL (0.11-0.59); #Neutrophils 5.4 thou/uL (1.40-6.50); %Basophils 0.4 % (0.0-1.0); %Eosinophils 0.5 % (0.0-10.0); %Lymphocytes 23.4 % (21.0-51.0); %Monocytes 9.5 % (0.0-10.0); %Neutrophils 66.3 % (42.0-75.0); Hypochromia SLIGHT = 6-15 cells (100X) (0-5/hpf); MDiff Complete? YES; Mean Corpuscular Hemoglobin 26.5 pg (27.0-31.0); Mean Corpuscular Volume 88.1 fL (78.0-98.0); Platelet Count 176 thou/uL (130-400); Polychromasia SLIGHT = 2-3 cells (100X) (0-2/hpf); RBC Distribution Width 15.6 % (11.5-14.5); White Blood Cell (WBC) Count 8.2 thou/uL (4.8-10.8)
== END 2018-06-13 11:50 | disposition home or self-care (01) ==
LOC: ERS 09:20
DX: M10.9 Gout, unspecified (principal); I11.0 Hypertensive heart disease with heart failure; I50.9 Heart failure, unspecified; E03.9 Hypothyroidism, unspecified; J44.9 Chronic obstructive pulmonary disease, unspecified; F17.210 Nicotine dependence, cigarettes, uncomplicated; Z79.899 Other long term (current) drug therapy; Z79.82 Long term (current) use of aspirin
CPT/HCPCS: 36415; 85025; 85652; 86140; 96372; J1885

== ENCOUNTER 2018-07-05 08:28 | Emergency (ER) | payer OTHER, SELFPAY ==
[2018-07-05 09:37] LABS: #Basophils 0.1 thou/uL (0.0-0.2); #Eosinphils 0.1 thou/uL (0.0-0.7); #Lymphocytes 1.5 thou/uL (1.20-3.40); #Monocytes 0.6 thou/uL (0.11-0.59); #Neutrophils 3.3 thou/uL (1.40-6.50); %Basophils 1.4 % (0.0-1.0); %Eosinophils 1.2 % (0.0-10.0); %Lymphocytes 26.5 % (21.0-51.0); %Monocytes 11.5 % (0.0-10.0); %Neutrophils 59.4 % (42.0-75.0); Hemoglobin 13.3 g/dL (12.0-16.0); Mean Corpuscular HGB CONC 29.9 g/dL (32.0-36.0); Mean Corpuscular Hemoglobin 26.9 pg (27.0-31.0); Mean Corpuscular Volume 89.8 fL (78.0-98.0); Platelet Count 221 thou/uL (130-400); Red Blood Cell (RBC) Count 4.95 mill/uL (4.20-5.40); White Blood Cell (WBC) Count 5.6 thou/uL (4.8-10.8)
[2018-07-05 09:39] LABS: ALT (SGPT) 22 U/L (8-55); AST (SGOT) 33 U/L (5-34); Albumin 3.6 g/dL (3.5-5.0); Alkaline Phosphatase 176 U/L (40-150); Anion Gap 15 mmol/L (10-20); BUN (Urea Nitrogen) 36 mg/dL (9.8-20.1); Bilirubin, Total 1.1 mg/dL (0.2-1.2); Calc. Creatinine Clearance 0 mL/min (70-130); Calcium 9.6 mg/dL (7.8-10.44); Carbon Dioxide 30 mmol/L (22-29); Chloride 103 mmol/L (98-107); Estimated GFR-MDRD 73; Globulin 3.3 g/dL (2.4-3.5); Glucose 95 mg/dL (70-105); Potassium 4.5 mmol/L (3.5-5.1); Protein, Total 6.9 g/dL (6.0-8.3); Sodium 143 mmol/L (136-145)
--- NOTE | 2018-07-05 10:00 | RAD ---
PORTABLE AP CHEST RADIOGRAPH: Date: 07-05-18 History: Chest pain. Patient fells tightness in chest since Wednesday. Oxygen dependent at night. Comparison: 06-07-18 FINDINGS: The cardiac silhouette remains enlarged. Pulmonary vasculature does appear mildly increased when comp ared to the prior exam. There is linear atelectasis present at the left lung base. There is also sugg estion of slight blunting of the left lateral costophrenic angle compared to the contralateral right side. This may be related to a very tiny left pleural effusion versus mild pleural and parenchymal sc arring. The lungs are otherwise clear. No other interval change. IMPRESSION: 1. Cardiomegaly with pulmonary vasculature, mildly increased. Correlation for mild CHF is suggested. 2. Tiny left pleural effusion versus pleural and parenchymal scarring. POS: H
[2018-07-05] MEDS ORDERED: Furosemide 40 MG TAB ONE (11:11)
[2018-07-05] MEDS ORDERED: Spironolactone 25 MG TAB PO SCH (11:30)
[2018-07-05] MEDS ORDERED: predniSONE 20 MG TAB ONE (12:53)
== END 2018-07-05 14:25 | disposition home or self-care (01) ==
LOC: ERS 08:28
DX: I11.0 Hypertensive heart disease with heart failure (principal); I50.9 Heart failure, unspecified; J44.9 Chronic obstructive pulmonary disease, unspecified; E87.70 Fluid overload, unspecified; F17.210 Nicotine dependence, cigarettes, uncomplicated; Z79.891 Long term (current) use of opiate analgesic; Z79.899 Other long term (current) drug therapy; Z79.51 Long term (current) use of inhaled steroids
CPT/HCPCS: 36415; 71045; 80053; 84484; 85025; 93005; 94640; J7506

== ENCOUNTER 2018-08-09 06:32 | Inpatient (IN) | payer OTHER ==
--- NOTE | 2018-08-09 07:28 | RAD ---
SINGLE VIEW CHEST: Date: 08/09/18 COMPARISON: 07/05/18. HISTORY: CHF. Shortness of breath. FINDINGS: Single view of the chest shows an enlarged but stable cardiomediastinal silhouette. There is no evide nce of consolidation, mass, or pleural effusion. The bones are unremarkable. IMPRESSION: Cardiomegaly. POS: [facility]
[2018-08-09] MEDS ORDERED: methylPREDNISolone Sod Succ/PF 125 MG/2 ML VIAL ONE (08:11)
[2018-08-09] MEDS ORDERED: Water For Inject, Bacteriostat 30 ML ONE (08:11)
[2018-08-09 08:36] LABS: ALT (SGPT) 19 U/L (8-55); AST (SGOT) 32 U/L (5-34); Albumin 4.1 g/dL (3.5-5.0); Alkaline Phosphatase 175 U/L (40-150); Anion Gap 17 mmol/L (10-20); BUN (Urea Nitrogen) 60 mg/dL (9.8-20.1); Bilirubin, Total 1.3 mg/dL (0.2-1.2); Calc. Creatinine Clearance 0 mL/min (70-130); Carbon Dioxide 29 mmol/L (22-29); Chloride 96 mmol/L (98-107); Estimated GFR-MDRD 61; Glucose 98 mg/dL (70-105); Magnesium 2.2 mg/dL (1.6-2.6); Protein, Total 8.1 g/dL (6.0-8.3); Sodium 137 mmol/L (136-145)
[2018-08-09 08:41] LABS: #Lymphocytes 1.7 thou/uL (1.20-3.40); #Monocytes 0.8 thou/uL (0.11-0.59); #Neutrophils 4.5 thou/uL (1.40-6.50); %Basophils 0.6 % (0.0-1.0); %Eosinophils 0.2 % (0.0-10.0); %Lymphocytes 24.8 % (21.0-51.0); %Monocytes 10.9 % (0.0-10.0); %Neutrophils 63.4 % (42.0-75.0); Hemoglobin 14.7 g/dL (12.0-16.0); Mean Corpuscular HGB CONC 29.3 g/dL (32.0-36.0); Mean Corpuscular Hemoglobin 26.4 pg (27.0-31.0); Mean Corpuscular Volume 90.1 fL (78.0-98.0); Mean Platelet Volume 10.9 fL (7.4-10.4); Platelet Count 240 thou/uL (130-400); RBC Distribution Width 18.6 % (11.5-14.5); Red Blood Cell (RBC) Count 5.56 mill/uL (4.20-5.40)
[2018-08-09] MEDS ORDERED: Furosemide 20 MG/2 ML VIAL ONE (08:43)
[2018-08-09 08:58] LABS: Bilirubin Negative (Negative); Blood, Urine Negative (Negative); Clarity CLEAR (Clear); Glucose, Urine (Dipstick) Negative (Negative); Leukocyte Negative (Negative); Nitrite Negative (Negative); Protein, Urine (Dipstick) Negative (Neg-Trace); Urobilinogen 0.2 mg/dL (0.2-1.0); pH, Urine 5.5 (5.0-9.0)
[2018-08-09] MEDS ORDERED: ISOVUE-370 76%-LOCM 1 ML ONE (09:58)
--- NOTE | 2018-08-09 10:20 | CT ---
CTA OF THE CHEST WITH CONTRAST: Date: 08/09/18 COMPARISON: 05/15/17. HISTORY: CHF and COPD. Dyspnea and elevated D-Dimer. TECHNIQUE: Multiple contiguous axial images were obtained in a CTA of the chest with contrast per pulmonary embo lism protocol. 3D oblique MIP reformats and direct coronal reformats were performed. FINDINGS: The pulmonary arteries are well opacified without filling defects to suggest pulmonary emboli. Global cardiomegaly is seen. No hilar or mediastinal lymphadenopathy appreciated. Emphysematous changes are seen in the lungs. No focal infiltrates or suspicious pulmonary masses are seen. No pneumothorax or pleural effusion present. Contrast extends down the inferior vena cava and into the liver, likely secondary to right heart dysf unction. The other visualized subdiaphragmatic structures are unremarkable. There is a small amount o f ascites. IMPRESSION: 1. No evidence of pulmonary thromboembolism. 2. Right heart dysfunction. 3. Small ascites. POS: [facility]
[2018-08-09] MEDS ORDERED: Aspirin Chewable 81 MG TAB ONE (12:05)
[2018-08-09] MEDS ORDERED: Acetaminophen 325 MG TAB PO PRN (12:56)
[2018-08-09 13:45] LABS: INR-International Normal Ratio 1.1; PTT 29.7 SEC (22.9-36.1); Prothrombin Time 14.4 SEC (12.0-14.7)
[2018-08-09 13:59] LABS: Troponin I 0.012 ng/mL (< 0.028)
--- NOTE | 2018-08-09 14:14 | ULT ---
BILATERAL LOWER EXTREMITY VENOUS DUPLEX EXAM: Date: 08/09/18 HISTORY: Elevated D-Dimer and bilateral leg edema. FINDINGS: Real-time color Doppler of right and left lower extremity was performed from groin to calf. This incl udes evaluation of the common femoral, superficial and profunda femoral, saphenous, popliteal, and po sterior tibial veins. This shows patent deep venous systems bilaterally. There is normal compressibil ity and augmentation. There is no evidence of deep venous thrombosis. Edema changes are seen within t he soft tissues. IMPRESSION: No evidence of deep venous thrombosis of either lower extremity. POS: [facility]
[2018-08-09 16:27] VITALS: BMI 25.5
[2018-08-09 16:33] LABS: Actual Bicarbonate (HCO3a) 34.3 mEq/L (22-28); Carboxyhemoglobin (COHb) 4.7 gm% (0.0-3.0); Hemoglobin (Hb) 14.4 g/dL (12.0-16.0); O2 Tension (PaO2) 63.1 mmHg (80.0-100.0); Potassium - ABG Lab 4.54 mmol/L (3.70-5.30); pH, Arterial 7.33 (7.35-7.45)
[2018-08-09 16:37] LABS: CO2 Tension 66.6 mmHg (35.0-45.0); Puncture Site LRA
--- NOTE | 2018-08-09 16:37 | CON ---
DATE OF CONSULTATION: REASON FOR CONSULTATION: Elevated creatinine. HISTORY OF PRESENT ILLNESS: This is a very pleasant 58-year-old female, who presented to the emergency room with increasing dyspnea as well as ascites. Her baseline creatinine was 0.9, which has increased to 1.1. The patient denies nausea or vomiting. No NSAID use. PAST MEDICAL HISTORY: Significant for ALICIA, CKD, peak creatinine was 2.0 last year; history of diabetes mellitus; hyperparathyroidism; tobacco use; diabetes mellitus; thyroidectomy; cor pulmonale; ascites; pericardial effusion; tricuspid regurgitation; and history of transesophageal echo. SOCIAL HISTORY: No alcohol or drug use. FAMILY HISTORY: Negative for ESRD. ALLERGIES: REVIEWED. MEDICATION: List reviewed. REVIEW OF SYSTEMS: Fifteen-point review of system was performed, negative except for what was noted above. NECK: No swelling or lumps. NOSE: No epistaxis or discharge. EYES: No diplopia or pain. MUSCULOSKELETAL: No joint pain. NEUROPSYCHIATRIC SYSTEMS: No suicidal ideation. No ideation. SKIN: Denies any rash or ulcer. CONSTITUTIONAL: No fever or chills. PHYSICAL EXAMINATION: CONSTITUTIONAL: On exam, the patient is awake, alert. VITAL SIGNS: Afebrile, pulse 75, breathing 16, and blood pressure 110/75. GENERAL APPEARANCE AND MENTAL STATUS: Fair. HEAD/NECK: Normocephalic. Atraumatic. EYES: EOMI. No deformity. EARS: Clear. No ulcers. NOSE: Intact. No lesions. MOUTH: Clear. No discharge. THROAT: Clear. No exudate. LUNGS: Clear. No crackles. CARDIAC: S1, S2. No rub. ABDOMEN: Shows massive ascites. GENITALIA/RECTUM: Watkins absent. BACK/EXTREMITIES: Edema 0+. NEUROLOGICAL: Alert and motor intact. LABORATORY DATA: Labs reviewed. Creatinine 1.1. ASSESSMENT AND PLAN: 1. Acute kidney injury with chronic kidney disease most likely due to decreased effective arterial blood volume. We will start gentle hydration. The patient has had contrast exposure, so this could put her at risk for renal dysfunction. 2. Anemia, stable. 3. Medications based on glomerular filtration rate are appropriate. 4. Congestive heart failure. Overall prognosis is poor. Again, no indication for dialysis at this time. Job ID: [id number]
--- NOTE | 2018-08-09 17:09 | HP ---
CHIEF COMPLAINT: Chest pain and shortness of breath. HISTORY OF PRESENT ILLNESS: This patient is a 58-year-old female, who presented via the emergency department complaining of chest pain and shortness of breath. The pain started the day prior to presenting. The patient was sitting and at rest at that time. The patient indicated that was the right central chest and right upper quadrant area where she located her pain. The patient indicated it got worse with position and movement. There were no alleviating factors and she states that she is slightly better with shortness of breath when she was on arrival. Of note, she has had some Lasix in the emergency department. She has taken nothing [id number] prior to arrival to address her current symptoms. PAST MEDICAL HISTORY: Notable for significant right heart failure in setting of severe tricuspid regurgitation. The patient was encouraged to follow up in [place] for surgical intervention on her valve; however, she chose not to do that. She has pulmonary hypertension, COPD, hypertension, continued tobacco abuse, type 2 diabetes mellitus diet-controlled, hypothyroidism, and history of hyperparathyroidism. PAST SURGICAL HISTORY: Thyroidectomy. FAMILY HISTORY: Mother had lung cancer. There is also hypertension in the family. SOCIAL HISTORY: The patient continues to smoke less than half a pack of cigarettes per day. She denies drugs or alcohol. She is too encephalopathic to have a significant conversation about code status presently, we will keep full code. REVIEW OF SYSTEMS: The patient reports some diminished sleep because of the pain symptoms. She denies headache, congestion, cough, palpitations, tachycardia, nausea, vomiting, weight loss, or weight gain. No recent illnesses. All other systems were reviewed as possible given the patient's encephalopathy and positives and negatives noted in the history of present illness. ALLERGIES: NONE. CURRENT MEDICATIONS: 1. Aspirin 81 mg daily. 2. Levothyroxine 75 mcg daily. 3. Lisinopril 2.5 mg daily. 4. DuoNebs p.r.n. 5. Proventil inhaler. 6. Indomethacin 25 mg two b.i.d. 7. Tylenol No. 3 q.4-6 hours p.r.n. 8. Aldactone 25 mg one daily. 9. Prednisone 20 mg two tablets every morning. 10. Torsemide 20 mg daily. PHYSICAL EXAMINATION: VITAL SIGNS: Presenting vital signs; blood pressure was 109/73, pulse 94, respirations 34, temperature 98.7, and O2 saturation was 93% on room air. Most recent set of vitals; blood pressure 100/64, pulse 91, respirations 28, temperature 98.4, and O2 saturation 93% on 2 L. GENERAL APPEARANCE: The patient is asleep, lying supine in the exam bed. In the emergency department, she does awaken, but is not significantly conversant, typically falls right back to sleep. She is tachypneic, but does not otherwise appear to be significantly distressed. HEENT: She has some evident bilateral and symmetric exophthalmos. Mild scleral icterus. NECK: Reveals some hyperdynamic circulation without specific JVD, but she does have some hepatojugular reflux. LUNGS: Reveal bibasilar rales, Velcro type, slightly worse on the left than the right. HEART: Regular without significant murmurs. ABDOMEN: Protuberant, soft. Liver edge is not palpable. Appears to be more of ascitic type distention. She does not demonstrate any significant tenderness with palpation. EXTREMITIES: Reveal 2+ pitting edema pretibially up to the mid calf. Peripheral pulses are diminished, likely being compromised on exam by the edema. LABORATORY DATA AND DIAGNOSTIC STUDIES: White count 7.0, hemoglobin 14.7, and platelets 240. D-dimer 8.03. Sodium 137, potassium 5.0, chloride 96, CO2 is 29, BUN 60, creatinine 1.12, glucose 98, magnesium 2.2. Total bilirubin 1.3, AST 32, ALT 19, alkaline phosphatase 175. Troponin 0.013. BNP 554. Albumin 4.1. Urinalysis is negative. Chest x-ray reveals severe cardiomegaly, which appears to be roughly similar to previous images. CT angiogram of the chest demonstrates no evidence of pulmonary thromboembolism. There appears to be right heart dysfunction with venous reflux to the liver and small ascites. IMPRESSION AND PLAN: 1. Chest pain, unclear etiology. The patient has elevated D-dimer, but a negative CT angio of the chest. It is not completely ruled out. We will check Dopplers as well. It does not appear to be ischemic in nature. It is certainly possible that this is partly related to the patient's passive liver congestion causing some capsular stretch and some pain related to that. 2. Right heart failure. The patient has a history of pulmonary hypertension with significant right heart dysfunction and right heart failure in the setting of severe tricuspid regurgitation and liver congestion. The patient has been on diuretics, although I do not think they are necessarily that helpful in this particular setting. Her BNP is at 554, where her numbers in the past have been around 613. Therefore, it does not appear to be substantially elevated. However, we will go ahead and repeat an echocardiogram as it has been almost 17 or 18 months since her last one. 3. Elevated liver enzymes with elevated total bilirubin and alkaline phosphatases, likely related to passive liver congestion. 4. Shortness of breath. Etiology is unclear. It does not appear that she has significant volume overload or pulmonary edema either on her chest x-ray or on her CT scan. CT did not demonstrate other significant pathology. We will check an ABG. Continue supplemental oxygen. 5. Acute hypoxic respiratory failure as above. Continue with supplemental oxygen. 6. Elevated D-dimer. Check lower extremity Doppler. CTA was negative. 7. Prerenal azotemia with a BUN 60 and creatinine of 1.2, which were both above her baseline numbers. We will consult Nephrology. The patient has had diuresis in the emergency department, which she says subjectively may have helped her breathing a bit. I am concerned she actually may have some intravascular depletion and/or arterial circulation. 8. Encephalopathy, unclear etiology. The patient is fairly somnolent, it is possible that she took some of her Tylenol No. 3 and is simply sedated from that. We will check a drug screen and ammonia level and an ABG to rule out CO2 narcosis. 9. Chronic obstructive pulmonary disease. We will continue with nebulizer treatments. The patient appears to be on steroids. We will continue with some those in the short term as well. Job ID: [id number]
[2018-08-09] MEDS ORDERED: Sodium Chloride 0.9% 1,000 ML IV SCH (17:15)
[2018-08-09] MEDS ORDERED: PROVENTIL INHALER 6.7 G (200 INHALATIONS) INH PRN (17:16)
[2018-08-09] MEDS: methylPREDNISolone Sod Succ 40 MG VIAL IVP SCH (17:24)
[2018-08-09 20:03] LABS: Troponin I Less than 0.010 ng/mL (< 0.028)
[2018-08-09] MEDS: Heparin 5,000 UNITS/ML VIAL SC SCH (21:13)
[2018-08-09] MEDS: Famotidine 20 MG TAB PO SCH (21:13)
[2018-08-10 00:09] LABS: Amphetamine Not Detected (NotDetected); Barbiturates Screen Not Detected (NotDetected); Benzodiazepine Screen Not Detected (NotDetected); Cocaine Metabolite Screen Not Detected (NotDetected); Medtox Control Line Valid? VALID (VALID); Medtox Reader # READER 4; Methadone Not Detected (NotDetected); Methamphetamine Not Detected (NotDetected); Opiate Screen Not Detected (NotDetected); Oxycodone Screen Not Detected (NotDetected); Phencyclidine (PCP) Not Detected (NotDetected); THC/Cannabinoid Screen Not Detected (NotDetected); Tricyclic Screen Not Detected (NotDetected)
[2018-08-10] MEDS: methylPREDNISolone Sod Succ 40 MG VIAL IVP SCH ×4 (00:47→17:41)
[2018-08-10 05:59] LABS: #Lymphocytes 0.8 thou/uL (1.20-3.40); #Monocytes 0.1 thou/uL (0.11-0.59); #Neutrophils 3.5 thou/uL (1.40-6.50); %Basophils 0.8 % (0.0-1.0); %Lymphocytes 17.5 % (21.0-51.0); %Monocytes 2.7 % (0.0-10.0); %Neutrophils 78.9 % (42.0-75.0); Hemoglobin 12.9 g/dL (12.0-16.0); Mean Corpuscular HGB CONC 28.8 g/dL (32.0-36.0); Mean Corpuscular Hemoglobin 26.1 pg (27.0-31.0); Mean Corpuscular Volume 90.8 fL (78.0-98.0); Mean Platelet Volume 10.4 fL (7.4-10.4); Platelet Count 210 thou/uL (130-400); RBC Distribution Width 17.9 % (11.5-14.5); Red Blood Cell (RBC) Count 4.92 mill/uL (4.20-5.40); White Blood Cell (WBC) Count 4.5 thou/uL (4.8-10.8)
[2018-08-10] MEDS: Levothyroxine Sodium 75 MCG TAB PO SCH (06:01)
[2018-08-10 06:20] LABS: Anion Gap 11 mmol/L (10-20); BUN (Urea Nitrogen) 57 mg/dL (9.8-20.1); Calc. Creatinine Clearance 70 mL/min (70-130); Calcium 9.4 mg/dL (7.8-10.44); Carbon Dioxide 33 mmol/L (22-29); Chloride 99 mmol/L (98-107); Estimated GFR-MDRD 69; Glucose 142 mg/dL (70-105); Potassium 4.9 mmol/L (3.5-5.1); Sodium 138 mmol/L (136-145)
[2018-08-10] MEDS: Famotidine 20 MG TAB PO SCH ×2 (08:54→20:31)
[2018-08-10] MEDS: Lisinopril 2.5 MG TAB PO SCH (08:54)
[2018-08-10] MEDS: Heparin 5,000 UNITS/ML VIAL SC SCH ×2 (08:54→20:31)
[2018-08-10] MEDS: Aspirin Chewable 81 MG TAB PO SCH (08:54)
--- NOTE | 2018-08-10 11:41 | PRG ---
DATE OF SERVICE: 08/10/2018 SUBJECTIVE: A 58-year-old female being seen for acute kidney injury. The patient denies any nausea, vomiting, or chest pain OBJECTIVE: See above. CONSTITUTIONAL: Awake, alert, in no acute distress. VITAL SIGNS: Afebrile. Pulse 75, breathing 16, blood pressure 100/56. GENERAL APPEARANCE AND MENTAL STATUS: Fair. HEAD/NECK: Normocephalic. Atraumatic. EYES: EOMI. No deformity. EARS: Clear. No ulcers. NOSE: Intact. No lesions. MOUTH: Clear. No discharge. THROAT: Clear. No exudate. LUNGS: Clear. No crackles. CARDIAC: S1, S2. No rub. ABDOMEN: Benign. Bowel sounds positive. GENITALIA/RECTUM: Watkins absent. BACK/EXTREMITIES: Edema 0+. NEUROLOGICAL: Alert and motor intact. SKIN: LYMPHATICS: LABORATORY DATA: Hemoglobin . Creatinine 1.0. ASSESSMENT AND PLAN: 1. Acute kidney injury, improved. 2. Hypertension, stable. 3. Anemia, stable. 4. Metabolic acidosis, stable. No indication for dialysis. Job ID: [id number]
--- NOTE | 2018-08-10 23:07 | PDOC.PN ---
- Subjective Encounter Start Date: 08/10/18 Encounter Start Time: 15:00 Feeling better. Pain is improved. - Objective Resuscitation Status - Order Detail: 08/09/18 12:56 Resuscitation Status Routine Resuscitation Status: FULL: Full Resuscitation Vital Signs & Weight: Vital Signs (12 hours) Temp Pulse Resp BP Pulse Ox 08/10/18 22:22 84 18 92 L 08/10/18 20:00 94 L 08/10/18 18:13 80 16 95 08/10/18 16:00 97.0 F L 83 18 97/56 L 97 08/10/18 13:42 83 16 92 L 08/10/18 12:00 97.2 F L 81 17 102/59 L 99 Weight Weight 156 lb 1.6 oz I&O: 08/09/18 08/10/18 08/11/18 06:59 06:59 06:59 Intake Total 1124 480 Output Total 1200 900 Balance -76 -420 Result Diagrams: 08/10/18 05:43 08/10/18 05:43 Phys Exam - Physical Examination Constitutional: NAD Respiratory: no wheezing, no rales, no rhonchi Cardiovascular: RRR II/ LLSB Gastrointestinal: soft, non-tender, no distention 2+ pitting edema. Psychiatric: normal affect, A&O x 3 Dx/Plan (1) Chest pain Code(s): R07.9 - CHEST PAIN, UNSPECIFIED Status: Acute (2) Prerenal azotemia Code(s): R79.89 - OTHER SPECIFIED ABNORMAL FINDINGS OF BLOOD CHEMISTRY Status : Acute (3) Anasarca Code(s): R60.1 - GENERALIZED EDEMA Status: Acute (4) Cor pulmonale (chronic) Code(s): I27.81 - COR PULMONALE (CHRONIC) Status: Acute (5) Diabetes type 2, controlled Code(s): E11.9 - TYPE 2 DIABETES MELLITUS WITHOUT COMPLICATIONS Status: Chronic Qualifiers: Diabetes mellitus oysterman insulin use: without senior care use Diabetes mellitus complication status: without complication Qualified Code(s): E11.9 - Type 2 diabetes mellitus without complications (6) Hypertension Code(s): I10 - ESSENTIAL (PRIMARY) HYPERTENSION Status: Chronic Qualifiers: Hypertension type: essential hypertension Qualified Code(s): I10 - Essential (primary) hypertension (7) Hypothyroidism Code(s): E03.9 - HYPOTHYROIDISM, UNSPECIFIED Status: Chronic Qualifiers: Hypothyroidism type: acquired Qualified Code(s): E03.9 - Hypothyroidism, unspecified (8) Pulmonary hypertension Code(s): I27.20 - PULMONARY HYPERTENSION, UNSPECIFIED Status: Chronic (9) Tricuspid valve regurgitation Code(s): I07.1 - RHEUMATIC TRICUSPID INSUFFICIENCY Status: Chronic Qualifiers: Cardiac valve disease etiology: etiology unspecified Qualified Code(s): I07.1 - Rheumatic tricuspid insufficiency - Plan * Discussed with Dr. Rodriguez. Patient has hx of IGNACIO causing the severe pulm htn. She has been recommended for sleep study, but has not done so. * Her tricuspid valve regurg is severe and secondary to the cor pulmonale. The is little to be done for that. She really has a small possibility of improvement with with treating the IGNACIO. * Will recheck the labs in am and anticipate discharge.
[2018-08-11] MEDS: methylPREDNISolone Sod Succ 40 MG VIAL IVP SCH ×3 (00:35→13:01)
[2018-08-11] MEDS: Levothyroxine Sodium 75 MCG TAB PO SCH (05:29)
[2018-08-11] MEDS: Famotidine 20 MG TAB PO SCH (08:37)
[2018-08-11] MEDS: Heparin 5,000 UNITS/ML VIAL SC SCH (08:37)
[2018-08-11] MEDS: Lisinopril 2.5 MG TAB PO SCH (08:37)
[2018-08-11] MEDS: Aspirin Chewable 81 MG TAB PO SCH (08:37)
[2018-08-11 10:37] LABS: Anion Gap 15 mmol/L (10-20); BUN (Urea Nitrogen) 55 mg/dL (9.8-20.1); Calc. Creatinine Clearance 70 mL/min (70-130); Calcium 9.2 mg/dL (7.8-10.44); Carbon Dioxide 32 mmol/L (22-29); Chloride 96 mmol/L (98-107); Estimated GFR-MDRD 67; Glucose 218 mg/dL (70-105); Potassium 4.2 mmol/L (3.5-5.1); Sodium 139 mmol/L (136-145)
--- NOTE | 2018-08-11 12:17 | PRG ---
DATE OF SERVICE: 08/11/2018 SUBJECTIVE: A 58-year-old lady being seen for acute kidney injury. The patient denies any nausea, vomiting, or chest pain OBJECTIVE: See above. CONSTITUTIONAL: Awake, alert, in no acute distress. VITAL SIGNS: Afebrile. Pulse 85, breathing 16, blood pressure 98/61. GENERAL APPEARANCE AND MENTAL STATUS: Fair. HEAD/NECK: Normocephalic. Atraumatic. EYES: EOMI. No deformity. EARS: Clear. No ulcers. NOSE: Intact. No lesions. MOUTH: Clear. No discharge. THROAT: Clear. No exudate. LUNGS: Clear. No crackles. CARDIAC: S1, S2. No rub. ABDOMEN: Benign. Bowel sounds positive. GENITALIA/RECTUM: Watkins absent. BACK/EXTREMITIES: Edema 0+. NEUROLOGICAL: Alert and motor intact. SKIN: LYMPHATICS: LABORATORY DATA: Reviewed. ASSESSMENT AND PLAN: 1. Stage 3 chronic kidney disease, stable. 2. Hypertension, stable. 3. Ascites, edema. Can start Lasix 10 to 20 mg on a daily basis as tolerated. Job ID: [id number]
[2018-08-11 15:58] VITALS: BP 100/64; TEMP 97.8
--- NOTE | 2018-08-15 13:52 | PQF ---
EDWARDO SAVAGE DAVID R MD [id number] [facility]-294 [phone] CLINICAL DOCUMENTATION CLARIFICATION FORM: POST DISCHARGE Please exercise your independent, professional judgment in responding to the clarification form. Clinical indicators are provided on the bottom of this form for your review Please check appropriate box(s): HEART FAILURE: A. TYPE: [ ] Systolic / HFrEF [ ] Diastolic / HFpEF [ ] Combined Systolic / Diastolic [ x ] Right heart failure B. ACUITY [ ] Acute [ x ] Acute on Chronic [ ] Chronic [ ] Other diagnosis [ ] Unable to determine CLINICAL INDICATORS - SIGNS / SYMPTOMS / LABS 08/10 ECHO LVEF ESTIMATED 50-55%, SEVERE TRICUSPID REGURGITATION 08/09 H&P, SOB, ACUTE HYPOXIC RESPIRATORY FAILURE 08/09 LABS, BNP 554.5 H 08/09 CXR RESULTS, CARDIOMEGALY 08/09 ER DEPT, CHF EXACERBATION RISKS: 08/09 H&P, HISTORY OF HTN, CKD, RIGHT HEART FAILURE, COPD TREATMENTS: 08/09 ER DEPT, 20 MG IV LASIX Oxygen Cardiac monitoring / telemetry (This form is maintained as a part of the permanent medical record) 2014 [employer] All Rights Reserved [email or web address] [phone] [email or web address]
== END 2018-08-11 16:15 | disposition home or self-care (01) | DRG 291 ==
LOC: ERS 06:32 → ERHOLD 09:53 → 2NO 15:51
PROVIDERS: ADMIT Internal Medicine; ATTEND Internal Medicine
DX: I13.0 Hypertensive heart and chronic kidney disease with heart failure and stage 1 through stage 4 chronic kidney disease, or unspecified chronic kidney disease (principal); J96.01 Acute respiratory failure with hypoxia; R18.8 Other ascites; N17.9 Acute kidney failure, unspecified; E87.2 Acidosis; G93.40 Encephalopathy, unspecified; I50.813 Acute on chronic right heart failure; K76.1 Chronic passive congestion of liver; E11.22 Type 2 diabetes mellitus with diabetic chronic kidney disease; N18.3 Chronic kidney disease, stage 3 (moderate); E03.9 Hypothyroidism, unspecified; I07.1 Rheumatic tricuspid insufficiency; I27.81 Cor pulmonale (chronic); I27.20 Pulmonary hypertension, unspecified; G47.33 Obstructive sleep apnea (adult) (pediatric); J44.9 Chronic obstructive pulmonary disease, unspecified; E21.3 Hyperparathyroidism, unspecified; D63.1 Anemia in chronic kidney disease; F17.200 Nicotine dependence, unspecified, uncomplicated; Z79.82 Long term (current) use of aspirin; Z79.52 Long term (current) use of systemic steroids
CPT/HCPCS: 36415; 71045; 71275; 80048; 80053; 80306; 81003; 82140; 82805; 83735; 83880; 84443; 84484; 85025; 85379; 85610; 85730; 93005; 93306; 93798; 93970; 94640; 96374; 96375; J1644; J1940; J2920; J2930; J7620; Q9966

== ENCOUNTER 2018-09-15 17:49 | Inpatient (IN) | payer OTHER ==
[2018-09-15 18:19] LABS: #Basophils 0.1 thou/uL (0.0-0.2); #Lymphocytes 1.4 thou/uL (1.20-3.40); #Monocytes 0.5 thou/uL (0.11-0.59); #Neutrophils 7.1 thou/uL (1.40-6.50); %Basophils 0.6 % (0.0-1.0); %Eosinophils 0.3 % (0.0-10.0); %Lymphocytes 15.1 % (21.0-51.0); Hemoglobin 14.2 g/dL (12.0-16.0); Mean Corpuscular HGB CONC 30.2 g/dL (32.0-36.0); Mean Corpuscular Hemoglobin 26.8 pg (27.0-31.0); Mean Platelet Volume 10.7 fL (7.4-10.4); Platelet Count 296 thou/uL (130-400); RBC Distribution Width 18.5 % (11.5-14.5); Red Blood Cell (RBC) Count 5.29 mill/uL (4.20-5.40); White Blood Cell (WBC) Count 9.1 thou/uL (4.8-10.8)
[2018-09-15 18:36] LABS: ALT (SGPT) 21 U/L (8-55); AST (SGOT) 31 U/L (5-34); Albumin 3.9 g/dL (3.5-5.0); Alkaline Phosphatase 212 U/L (40-150); Anion Gap 17 mmol/L (10-20); BUN (Urea Nitrogen) 66 mg/dL (9.8-20.1); Calc. Creatinine Clearance 0 mL/min (70-130); Calcium 9.6 mg/dL (7.8-10.44); Carbon Dioxide 30 mmol/L (22-29); Chloride 96 mmol/L (98-107); Estimated GFR-MDRD 39; Glucose 128 mg/dL (70-105); Potassium 5.3 mmol/L (3.5-5.1); Protein, Total 7.9 g/dL (6.0-8.3); Sodium 138 mmol/L (136-145)
[2018-09-15] MEDS ORDERED: Ondansetron ODT 4 MG TAB SL PRN (20:52)
[2018-09-15] MEDS ORDERED: Ondansetron PF 4 MG/2 ML Vial IVP PRN ×2 (20:52→20:54)
[2018-09-15] MEDS ORDERED: Sodium Chloride 0.9% 1,000 ML IV SCH (20:52)
[2018-09-15] MEDS ORDERED: Acetaminophen 325 MG TAB PO PRN (20:52)
[2018-09-15] MEDS ORDERED: Dextrose 50% Abboject 50 ML SYRINGE SLOW IVP PRN (20:54)
[2018-09-15] MEDS ORDERED: hydrALAZINE 20 MG/ML VIAL SLOW IVP PRN (20:54)
[2018-09-15] MEDS ORDERED: Diabetic Tussin 200 MG/10 ML UDCUP PO PRN (20:54)
[2018-09-15] MEDS ORDERED: Acetaminophen 500 MG TAB PO PRN (20:54)
[2018-09-15] MEDS ORDERED: Dextrose 5% in Water 1,000 ML IV PRN (20:54)
[2018-09-15] MEDS ORDERED: HumaLOG 300 UNITS/3 ML VIAL SC PRN ×2 (20:54)
[2018-09-15] MEDS ORDERED: Benzonatate 100 MG CAP PO PRN (20:54)
[2018-09-15] MEDS ORDERED: Ondansetron ODT 4 MG TAB PO PRN (20:54)
[2018-09-15] MEDS ORDERED: PROVENTIL INHALER 6.7 G (200 INHALATIONS) INH PRN (20:54)
[2018-09-15] MEDS ORDERED: Bacteriostatic Water 30 ML VIAL FS PRN (21:07)
[2018-09-15 21:34] VITALS: BMI 25.3
[2018-09-15] MEDS: Sodium Chloride 0.9% 1,000 ML IV SCH (22:17)
[2018-09-15] MEDS: Nicotine 14 MG PATCH TD SCH (22:17)
[2018-09-15] MEDS: Famotidine 20 MG TAB PO SCH (23:12)
[2018-09-15] MEDS: Cefepime 2 GM in Sodium Chloride 0.9% 100 ML IVPB SCH (23:12)
[2018-09-15] MEDS: methylPREDNISolone Sod Succ 40 MG VIAL IVP SCH (23:12)
[2018-09-15] MEDS ORDERED: methylPREDNISolone Sod Succ 40 MG VIAL IVP SCH (23:59)
--- NOTE | 2018-09-16 01:28 | HP ---
PRIMARY CARE PROVIDER: [facility]. CHIEF COMPLAINT: Shortness of breath, fever, and general malaise. HISTORY OF PRESENT ILLNESS: This is a 58-year-old female, who initially presented to [facility] Emergency Department complaining of increasing shortness of breath, fever, body aches, and shortness of breath in the context of chronic hypoxic respiratory failure and cor pulmonale. The patient with recent admission to [facility] from 08/09/2018 through 08/11/2018 for cor pulmonale, hypoxemia, and chest pain. The patient states she has been compliant with her medication regimen, but continues to smoke up to a half a pack to one pack of cigarettes daily. The patient noted increased chills and fever in the last 48 hours, taking Tylenol for relief. The patient admits to chronic shortness of breath and uses oxygen at home nocturnally. The patient denied any increased lower extremity edema, but states she has chronic swelling of her legs actually decreased in the last several days. The patient states one of her coworkers was recently ill with upper respiratory infection and believes she may have contracted a similar illness. The patient denied any associated nausea, vomiting, or diarrhea. The patient denied any dysuria. The patient denied any recent antibiotic exposure. In the emergency room, the patient underwent general evaluation including chest imaging showing questionable infiltrate of the left lower lobe with associated cardiomegaly. The patient was noted with hypoxia, however, the patient did receive Levaquin 750 mg IV x1 dose in the emergency room. The patient was also placed on oxygen supplementation and given intravenous normal saline x500 mL. The patient's overall saturation improved with supplementation, maintaining saturations in the mid 90% range on 2 to 3 L/minute by nasal cannula. PAST MEDICAL HISTORY: 1. Chronic obstructive pulmonary disease. 2. Tobacco abuse. 3. Cor pulmonale. 4. Chronic right-sided heart failure secondary to severe tricuspid valve regurgitation. 5. Question of diabetes mellitus type 2 without current treatment. 6. Pulmonary hypertension. 7. Hypertension. 8. Hypothyroidism. 9. Hyperparathyroidism. PAST SURGICAL HISTORY: Status post thyroidectomy. CURRENT MEDICATIONS: 1. Aspirin 81 mg p.o. daily. 2. Levothyroxine 75 mcg p.o. daily. 3. Lisinopril 2.5 mg p.o. daily. 4. DuoNeb 3 mL nebulized q.i.d. p.r.n. 5. Proventil HFA 2 puffs inhaled q.6 hours p.r.n. 6. Tylenol No. 3 one tablet p.o. q.4 to 6 hours p.r.n. 7. Aldactone 25 mg p.o. daily. 8. Torsemide 20 mg p.o. daily. ALLERGIES: NO KNOWN DRUG ALLERGIES. FAMILY HISTORY: Mother with lung cancer. SOCIAL HISTORY: The patient resides in the [place], [place] area. Smokes up to a half a pack to one pack of cigarettes daily. No alcohol or illicit drug use. Works at a local [employer]. REVIEW OF SYSTEMS: CONSTITUTIONAL: Negative for weight loss or gain, ability to conduct usual activities. SKIN: Negative for rash, itching. EYES: Negative for double vision, pain. ENT/MOUTH: Negative for nose bleeding, neck stiffness, pain, tenderness. CARDIOVASCULAR: Negative for palpitations, dyspnea on exertion, orthopnea. RESPIRATORY: Negative for shortness of breath, wheezing, cough, hemoptysis, fever or night sweats. GASTROINTESTINAL: Negative for poor appetite, abdominal pain, heartburn, nausea, vomiting, constipation, or diarrhea. GENITOURINARY: Negative for urgency, frequency, dysuria, nocturia. MUSCULOSKELETAL: Negative for pain, swelling. NEUROLOGIC/PSYCHIATRIC: Negative for anxiety, depression. ALLERGY/IMMUNOLOGIC: Negative for skin rash, bleeding tendency. Otherwise, negative except as stated per HPI. PHYSICAL EXAMINATION: VITAL SIGNS: On admission. Blood pressure 103/59, pulse 100, respiratory rate 33, temperature 98.9 degrees Fahrenheit, O2 saturation 93% on 4 L/minute by nasal cannula. GENERAL APPEARANCE: This is a 58-year-old female, ill appearing, frail with tachypnea. HEENT: Pupils are equal, round, reactive to light and accommodation. Extraocular muscles are intact. No scleral icterus. No conjunctival injection. Nares are patent. OP is clear. NECK: Supple. No cervical adenopathy. No thyromegaly. No carotid bruits. No JVD appreciated. Cervical spine with full active and passive range of motion. No meningeal signs noted. CHEST: Diminished breath sounds in the bases bilaterally, left greater than right. Scattered coarse breath sounds in the left lung field. CARDIOVASCULAR: S1 and S2 with 2/6 to 3/6 systolic ejection murmur in the right upper sternal border. ABDOMEN: Protuberant, nontender, nondistended. Bowel sounds are positive in all 4 quadrants. No palpable mass. EXTREMITIES: Warm and dry with fair turgor. Bilateral pitting edema noted to the proximal shins. Pulses are palpable distally at the dorsalis pedis, posterior tibial, and popliteal arteries bilaterally. Capillary refill is less than 2 seconds. NEUROLOGIC: Cranial nerves 2 through 12 are grossly intact. No focal or lateralizing signs appreciated. PERTINENT LAB AND X-RAY FINDINGS: Sodium 138, potassium 5.3, chloride 96, CO2 of 30, BUN 66, creatinine 1.64, estimated GFR of 39, alkaline phosphatase 212. Troponin I negative x1. BNP 863, previously noted 555 on 08/09/2018. CBC showed a white blood cell count of 9.1, hemoglobin 14, hematocrit 47, platelet count 296 with 78% neutrophils. Influenza A and B antigen dated 09/15/2018, negative. PA and lateral chest x-ray dated 09/15/2018, by my interpretation shows marked cardiomegaly. Questionable early infiltrate in the left lung field basilar section. EKG dated 09/15/2018, by my interpretation shows a sinus tachycardia with heart rates in the low 100s. Right axis deviation. Biatrial enlargement noted. ASSESSMENT/PLAN: 1. Acute on chronic hypoxic respiratory failure. The patient will be admitted to the telemetry unit. Suspect multifocal process given patient's chronic hypoxic respiratory failure. We will continue general supportive management including bronchodilator therapy. We will continue oxygen supplementation to maintain O2 saturations greater than or equal to 90%. 2. Bacterial pneumonia. Suspected in the left lower lobe. We will continue empiric antibiotic coverage with Levaquin 750 mg IV daily with additional cefepime 2 g IV q.12 hours. Consider repeat chest imaging in 48 hours. 3. Acute kidney injury on chronic kidney disease, stage 2. Avoid nephrotoxic agents and limit contrast exposure. Continue IV fluids with normal saline at 50 mL/h. Repeat creatinine in the a.m. 4. Cor pulmonale. We will continue general cardiac support. Recent 2D transthoracic echocardiogram on 08/12/2018, showed preserved ejection fraction of 50% to 55%. 5. Tobacco abuse. We will offer smoking cessation resources prior to discharge. 6. Hyperkalemia. Mild. We will continue IV fluids as outlined previously. Avoid potassium supplementation and repeat potassium level in the a.m. 7. Prophylaxis. SCDs while in bed. Pepcid 20 mg p.o. b.i.d. 8. Code status is full. Surrogate medical decision maker not identified. Job ID: [id number]
[2018-09-16 05:05] LABS: Hemoglobin 13.4 g/dL (12.0-16.0); Mean Corpuscular HGB CONC 29.8 g/dL (32.0-36.0); Mean Corpuscular Hemoglobin 26.8 pg (27.0-31.0); Mean Corpuscular Volume 89.8 fL (78.0-98.0); Mean Platelet Volume 10.4 fL (7.4-10.4); Platelet Count 275 thou/uL (130-400); RBC Distribution Width 18.2 % (11.5-14.5); Red Blood Cell (RBC) Count 5.02 mill/uL (4.20-5.40); White Blood Cell (WBC) Count 11.3 thou/uL (4.8-10.8)
[2018-09-16 05:25] LABS: ALT (SGPT) 22 U/L (8-55); AST (SGOT) 29 U/L (5-34); Albumin 3.7 g/dL (3.5-5.0); Alkaline Phosphatase 194 U/L (40-150); Anion Gap 15 mmol/L (10-20); BUN (Urea Nitrogen) 62 mg/dL (9.8-20.1); Bilirubin, Total 0.9 mg/dL (0.2-1.2); Calc. Creatinine Clearance 54 mL/min (70-130); Calcium 9.2 mg/dL (7.8-10.44); Carbon Dioxide 27 mmol/L (22-29); Chloride 102 mmol/L (98-107); Estimated GFR-MDRD 51; Globulin 3.8 g/dL (2.4-3.5); Glucose 142 mg/dL (70-105); Potassium 5.4 mmol/L (3.5-5.1); Protein, Total 7.5 g/dL (6.0-8.3); Sodium 139 mmol/L (136-145)
[2018-09-16 05:29] LABS: Band 10 % (5-11); Lymphocytes 8 % (21-51); MDiff Complete? YES; Neutrophil 82 % (42-75); Platelet Morphology Comment Appears Adequate
[2018-09-16] MEDS: Levothyroxine Sodium 75 MCG TAB PO SCH (05:29)
[2018-09-16] MEDS: methylPREDNISolone Sod Succ 40 MG VIAL IVP SCH ×4 (05:29→23:28)
[2018-09-16] MEDS: Famotidine 20 MG TAB PO SCH ×2 (10:43→19:57)
[2018-09-16] MEDS: Aspirin Chewable 81 MG TAB PO SCH (10:43)
[2018-09-16] MEDS: Cefepime 2 GM in Sodium Chloride 0.9% 100 ML IVPB SCH ×2 (10:44→19:56)
--- NOTE | 2018-09-16 16:53 | PDOC.PN ---
- Subjective Encounter Start Date: 09/16/18 Encounter Start Time: 16:40 Subjective: f/u for acute/chronic resp failure, bacterial pneumonia on Levaquin -: and Cefepime with O2 @ 3L/min. Feels better overall but some residual -: cough. No fever. - Objective Resuscitation Status - Order Detail: 09/15/18 19:56 Resuscitation Status Routine Resuscitation Status: FULL: Full Resuscitation MAR Reviewed: Yes Vital Signs & Weight: Vital Signs (12 hours) Temp Pulse Resp BP BP Pulse Ox 09/16/18 15:25 97.8 F 91 20 97/57 L 98 09/16/18 15:08 92 20 90 L 09/16/18 10:29 91 20 90 L 09/16/18 08:00 95 09/16/18 07:55 98.1 F 97 20 105/53 L 95 09/16/18 06:50 88 L 09/16/18 06:48 92 16 88 L Weight Weight 158 lb 11.2 oz I&O: 09/15/18 09/16/18 09/17/18 06:59 06:59 06:59 Intake Total 640 Balance 640 Result Diagrams: 09/16/18 04:52 09/16/18 04:52 Additional Labs: Accuchecks 09/16/18 09/16/18 09/15/18 11:16 05:16 21:14 POC Glucose 180 H 142 H 109 Microbiology 09/15/18 19:06 Nasal swab Influenza Types A,B Direct EIA - Final 09/15/18 18:05 Venous blood - Right Arm Blood Culture - Preliminary Specimen has been received and culture in progress. No Growth to date. 09/15/18 18:05 Venous blood - Left Arm Blood Culture - Preliminary Specimen has been received and culture in progress. No Growth to date. Laboratory Tests 09/15/18 09/15/18 09/16/18 18:05 18:05 04:52 WBC 9.1 Neutrophils % 78.0 H Neutrophils % (Manual) 82 H Potassium 5.3 H Creatinine 1.64 H EKG Reviewed by me: Yes (Tele - SR) Phys Exam - Physical Examination Constitutional: NAD alert, responsive HEENT: PERRLA, sclera anicteric, oral pharynx no lesions Neck: no nodes, no JVD, supple, full ROM coarse sounds bilat, diminished in bases III/ AMALIA in RUSB, S1, S2 Cardiovascular: RRR, no rub, gallop Gastrointestinal: soft, non-tender, no distention, positive bowel sounds mild LE edema Musculoskeletal: pulses present Neurological: normal sensation, moves all 4 limbs Psychiatric: A&O x 3 Skin: normal turgor, cap refill <2 seconds Dx/Plan (1) Acute on chronic respiratory failure with hypoxia Code(s): J96.21 - ACUTE AND CHRONIC RESPIRATORY FAILURE WITH HYPOXIA Status: Acute Comment: Multifactorial, continue O2 supplementation, see tx plan below (2) Bacterial pneumonia Code(s): J15.9 - UNSPECIFIED BACTERIAL PNEUMONIA Status: Acute Comment: Continue Levaquin/Cefepime, de-escalate coverage in 24h, continue Duonebs, O2 support (3) Acute on chronic kidney failure Code(s): N17.9 - ACUTE KIDNEY FAILURE, UNSPECIFIED; N18.9 - CHRONIC KIDNEY DISEASE, UNSPECIFIED Status: Acute Comment: Continue low-volume IVF's, avoid nephrotoxic agents and limit contrast exposure, serial creatinine (4) Cor pulmonale Code(s): I27.81 - COR PULMONALE (CHRONIC) Status: Chronic Comment: Chronic, supportive mgmt, Torsemide in next 24h (5) Tobacco abuse Code(s): Z72.0 - TOBACCO USE Status: Chronic Comment: Smoking cessation resources (6) Hyperkalemia Code(s): E87.5 - HYPERKALEMIA Status: Acute Comment: Mild hyperkalemia, continue low-volume IVF's, hold ACI-i, repeat K+ level in am - Plan continue antibiotics, 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
[2018-09-16] MEDS: Sodium Chloride 0.9% 1,000 ML IV SCH (17:36)
[2018-09-16] MEDS: Nicotine 14 MG PATCH TD SCH (19:56)
[2018-09-17] MEDS: Levothyroxine Sodium 75 MCG TAB PO SCH (05:09)
[2018-09-17] MEDS: methylPREDNISolone Sod Succ 40 MG VIAL IVP SCH (05:09)
[2018-09-17 05:57] LABS: Band 1 % (5-11); Hemoglobin 12.6 g/dL (12.0-16.0); Hypochromia SLIGHT = 6-15 cells (100X) (0-5/hpf); Lymphocytes 1 % (21-51); MDiff Complete? YES; Mean Corpuscular HGB CONC 29.3 g/dL (32.0-36.0); Mean Corpuscular Hemoglobin 26.1 pg (27.0-31.0); Mean Corpuscular Volume 89.3 fL (78.0-98.0); Mean Platelet Volume 10.4 fL (7.4-10.4); Monocytes 4 % (0-10); Neutrophil 93 % (42-75); Platelet Count 276 thou/uL (130-400); Platelet Morphology Comment Appears Adequate; RBC Distribution Width 18.1 % (11.5-14.5); Reactive Lymphocytes 1 % (0-10); Red Blood Cell (RBC) Count 4.84 mill/uL (4.20-5.40); White Blood Cell (WBC) Count 8.4 thou/uL (4.8-10.8)
[2018-09-17 06:06] LABS: Anion Gap 14 mmol/L (10-20); BUN (Urea Nitrogen) 56 mg/dL (9.8-20.1); Calc. Creatinine Clearance 70 mL/min (70-130); Carbon Dioxide 28 mmol/L (22-29); Chloride 100 mmol/L (98-107); Estimated GFR-MDRD 68; Glucose 152 mg/dL (70-105); Potassium 4.8 mmol/L (3.5-5.1); Sodium 137 mmol/L (136-145)
[2018-09-17] MEDS: Famotidine 20 MG TAB PO SCH (08:36)
[2018-09-17] MEDS: Aspirin Chewable 81 MG TAB PO SCH (08:36)
[2018-09-17] MEDS: Cefepime 2 GM in Sodium Chloride 0.9% 100 ML IVPB SCH (08:37)
[2018-09-17 09:54] VITALS: BP 116/61; TEMP 98
--- NOTE | 2018-09-17 10:49 | DIS ---
DATE OF ADMISSION: 09/15/2018 DATE OF DISCHARGE: 09/17/2018 DISCHARGE DIAGNOSES: 1. Acute on chronic respiratory failure with hypoxia. 2. Left lower lobe bacterial pneumonia. 3. Acute kidney injury. 4. Chronic kidney disease stage 2. 5. Chronic respiratory failure, on home oxygen. 6. Chronic cor pulmonale. 7. Severe tricuspid regurgitation. 8. Tobacco abuse disorder. 9. Chronic obstructive pulmonary disease. 10. Hyperkalemia. 11. Hypothyroidism. HOSPITAL COURSE: A 58-year-old female with known history of chronic cor pulmonale; chronic respiratory failure, on home oxygen, the patient only mostly uses oxygen at night; COPD, who continues to smoke, admitted with acute onset of worsening shortness of breath, fever, and generalized weakness. The patient was found to be hypoxic on presentation and was started on oxygen supplementation with improvement. Further evaluation with chest x-ray showed left lower lobe infiltrate suggestive of pneumonia. Hence, the patient was started on antibiotics as well as bronchodilators and steroids with good interval improvement. The patient with chronic leg swelling and ascites, was found to have hyperkalemia. This was felt to be related to medications as the patient was on lisinopril and spironolactone. The patient also was noted to have acute kidney injury with creatinine of 1.7 which is elevated compared to baseline of 1.03. Hence, diuretics and antihypertensives were held. Creatinine improved to a discharge level of 1.03. The patient improved and was saturating well on oxygen supplementation 2 L and was subsequently discharged home. The patient was instructed to use oxygen continuously. The patient has a portable oxygen device at home, but prefers not to use it at work. The patient also smokes about a pack a day. I had extensive discussion about this with her and need to stop smoking. PHYSICAL EXAMINATION: VITAL SIGNS: Temperature 98.1, pulse 97, respiratory rate 20, SpO2 of 95% on 2 L nasal cannula, blood pressure 105/53. GENERAL: Clinically ill-looking female, in no obvious distress. Afebrile. Anicteric. Acyanotic. HEENT: Normocephalic and atraumatic. Mild periorbital fullness noted. Pupils are equal and reactive to light. Oral mucosa is moist. CARDIOVASCULAR: Regular rhythm and rate with normal heart sounds 1 and 2. Systolic murmur noted. RESPIRATORY: Fair air entry bilateral, diminished at the bases. GI: Abdomen is distended, soft, and nontender with normal bowel sounds. EXTREMITIES: [id number] bilateral leg edema with no obvious erythema. NEUROLOGIC: Conscious and alert and oriented x3 with appropriate mental status. Cranial nerves 2 through 12 are intact. The patient moves all extremities. DISCHARGE CONDITION: Improved. DISCHARGE MEDICATIONS: 1. Albuterol HFA 2 puffs inhalation q.4 hours p.r.n. 2. Spironolactone 25 mg p.o. daily. 3. Torsemide 20 mg p.o. daily. 4. Aspirin 81 mg p.o. daily. 5. Mucinex 600 mg p.o. b.i.d. for 10 days. 6. Ipratropium-albuterol sulfate 3 mL nebs q.i.d. 7. Levofloxacin 750 mg p.o. daily for 5 days. 8. Levothyroxine 75 mcg p.o. daily. 9. Prednisone 40 mg p.o. daily for 5 days. FOLLOWUP: The patient is to follow up with PCP in 7 days. She is also to follow up with photoengraving retoucher in 14 days. She is also to follow up with rehabilitator in 3 to 4 weeks. This discharge took more than 35 minutes. Job ID: [id number]
== END 2018-09-17 10:15 | disposition home or self-care (01) | DRG 193 ==
LOC: ERS 17:49 → T4-A 20:50 → 2NO 22:31
PROVIDERS: ADMIT Family Medicine; ATTEND Family Medicine
DX: J15.9 Unspecified bacterial pneumonia (principal); J96.01 Acute respiratory failure with hypoxia; N17.9 Acute kidney failure, unspecified; I13.0 Hypertensive heart and chronic kidney disease with heart failure and stage 1 through stage 4 chronic kidney disease, or unspecified chronic kidney disease; J44.0 Chronic obstructive pulmonary disease with (acute) lower respiratory infection; R18.8 Other ascites; F17.210 Nicotine dependence, cigarettes, uncomplicated; E11.22 Type 2 diabetes mellitus with diabetic chronic kidney disease; E03.9 Hypothyroidism, unspecified; E21.3 Hyperparathyroidism, unspecified; N18.2 Chronic kidney disease, stage 2 (mild); I27.81 Cor pulmonale (chronic); E87.5 Hyperkalemia; I07.1 Rheumatic tricuspid insufficiency; T46.4X5A Adverse effect of angiotensin-converting-enzyme inhibitors, initial encounter; T50.0X5A Adverse effect of mineralocorticoids and their antagonists, initial encounter; I50.812 Chronic right heart failure; Z79.899 Other long term (current) drug therapy; Z79.82 Long term (current) use of aspirin; Z99.81 Dependence on supplemental oxygen
CPT/HCPCS: 36415; 36416; 71045; 80048; 80053; 83605; 83880; 84484; 85007; 85025; 85027; 87040; 87804; 93005; 94640; 99406; J0692; J1956; J2920; J7050; J7620

== ENCOUNTER 2018-09-27 11:04 | Emergency (ER) | payer SELFPAY ==
--- NOTE | 2018-09-27 12:39 | RAD ---
RIGHT KNEE FOUR VIEWS: 09/27/18 HISTORY: Knee pain started yesterday. There is no evidence of any significant joint effusion. There are minimal arthritic changes in the kn ee. Suggestion of some slight medial compartment narrowing. No fractures. No bony erosive change. IMPRESSION: No acute findings. POS: TPC
[2018-09-27] MEDS ORDERED: Acetaminophen 325 MG TAB ONE (12:54)
== END 2018-09-27 13:24 | disposition home or self-care (01) ==
LOC: ERS 11:04
DX: M17.11 Unilateral primary osteoarthritis, right knee (principal); R06.2 Wheezing; J44.9 Chronic obstructive pulmonary disease, unspecified; E03.9 Hypothyroidism, unspecified; I11.0 Hypertensive heart disease with heart failure; I50.9 Heart failure, unspecified; F17.210 Nicotine dependence, cigarettes, uncomplicated; Z79.899 Other long term (current) drug therapy; Z79.82 Long term (current) use of aspirin; Z79.51 Long term (current) use of inhaled steroids
CPT/HCPCS: 94640; 94760; J7620

== ENCOUNTER 2018-10-26 11:57 | Inpatient (IN) | payer OTHER, SELFPAY ==
[2018-10-26 12:20] LABS: #Lymphocytes 1.8 thou/uL (1.20-3.40); #Monocytes 0.7 thou/uL (0.11-0.59); #Neutrophils 5.7 thou/uL (1.40-6.50); %Basophils 0.5 % (0.0-1.0); %Eosinophils 0.4 % (0.0-10.0); %Lymphocytes 21.8 % (21.0-51.0); %Neutrophils 68.3 % (42.0-75.0); Hemoglobin 13.5 g/dL (12.0-16.0); Mean Corpuscular HGB CONC 30.1 g/dL (32.0-36.0); Mean Corpuscular Hemoglobin 26.1 pg (27.0-31.0); Mean Corpuscular Volume 86.8 fL (78.0-98.0); Mean Platelet Volume 10.3 fL (7.4-10.4); Platelet Count 313 thou/uL (130-400); RBC Distribution Width 18.6 % (11.5-14.5); Red Blood Cell (RBC) Count 5.17 mill/uL (4.20-5.40); White Blood Cell (WBC) Count 8.3 thou/uL (4.8-10.8)
[2018-10-26 12:41] LABS: ALT (SGPT) 17 U/L (8-55); AST (SGOT) 29 U/L (5-34); Albumin 3.5 g/dL (3.5-5.0); Alkaline Phosphatase 174 U/L (40-150); Anion Gap 17 mmol/L (10-20); BUN (Urea Nitrogen) 47 mg/dL (9.8-20.1); Bilirubin, Total 1.2 mg/dL (0.2-1.2); CK (CPK) 158 U/L (29-168); Calc. Creatinine Clearance 0 mL/min (70-130); Calcium 9.3 mg/dL (7.8-10.44); Carbon Dioxide 32 mmol/L (22-29); Chloride 96 mmol/L (98-107); Estimated GFR-MDRD 52; Globulin 3.7 g/dL (2.4-3.5); Glucose 121 mg/dL (70-105); Lipase 34 U/L (8-78); Potassium 4.6 mmol/L (3.5-5.1); Protein, Total 7.2 g/dL (6.0-8.3); Sodium 140 mmol/L (136-145)
[2018-10-26 13:03] LABS: CKMB 2.8 ng/mL (0-6.6)
[2018-10-26] MEDS ORDERED: Furosemide 40 MG TAB ONE (13:11)
[2018-10-26] MEDS ORDERED: Furosemide 100 MG/10 ML VIAL ONE (13:12)
--- NOTE | 2018-10-26 13:21 | RAD ---
CHEST 1 VIEW PORTABLE: Date: 10/26/18 HISTORY: Shortness of breath. History of congestive heart failure, dyspnea. COMPARISON: 09/15/18. FINDINGS: Marked cardiomegaly with mild vascular congestion, but no confluent pneumonia, overt edema, or pleura l effusions. Surgical clips in the mid and left neck. IMPRESSION: Stable cardiomegaly with mild vascular congestion. No overt edema or confluent pneumonia. POS: TPC
[2018-10-26] MEDS ORDERED: Albuterol Sulfate 2.5 mg/0.5 ml Neb ONE (14:35)
[2018-10-26] MEDS ORDERED: Albuterol Sulfate 2.5 mg/3 ml Neb ONE (14:35)
[2018-10-26 15:33] LABS: Troponin I 0.015 ng/mL (< 0.028)
[2018-10-26] MEDS ORDERED: Albuterol Sulfate 2.5 mg/3 ml Neb NEB PRN (15:50)
[2018-10-26] MEDS ORDERED: Ondansetron ODT 4 MG TAB PO PRN (15:50)
[2018-10-26] MEDS ORDERED: Calcium Carbonate 500 MG ChewTAB PO PRN (15:50)
[2018-10-26] MEDS ORDERED: Ondansetron PF 4 MG/2 ML Vial IVP PRN (15:50)
[2018-10-26] MEDS ORDERED: Furosemide 40 MG/4 ML VIAL SLOW IVP SCH (16:00)
[2018-10-26] MEDS ORDERED: Enoxaparin Sodium 40 MG/0.4 ML SYRINGE SC SCH (16:00)
[2018-10-26 20:30] LABS: Troponin I 0.041 ng/mL (< 0.028)
--- NOTE | 2018-10-26 22:20 | HP ---
LOCATION: [place], [place]. HISTORY OF PRESENT ILLNESS: The patient is a 58-year-old female with a past medical history of COPD, cor pulmonale, type 3 pulmonary hypertension, hypothyroidism, and hypertension, who presents to the ED with approximately 1-1/2 to 2-week history of increasing shortness of breath and lower extremity edema. The patient notes over that same time line, she has had increased abdominal swelling. She was recently hospitalized on 09/15/2018 for CHF exacerbation and COPD exacerbation, and was diuresed, treated accordingly during that visit. She has chronic O2 dependence with 2L nasal cannula at home daily. Currently, the patient denies any chest pain. She does have persistent shortness of breath. She denies any nausea, vomiting, or diarrhea. She does report some constipation. Denies fever or chills. The patient admits to noncompliance with fluid restriction and salt restriction recently. She normally takes both torsemide and spironolactone at home for continued diuresis. However, even with these medications, the swelling has been increasing over the last 1 to 2 weeks. Despite her underlying lung disease, recent echo suggestive of severe pulmonary artery hypertension the patient does continue to smoke approximately 1/2 pack per day. Of note, the patient had a recent echo on 08/12/2018 that showed severely dilated right ventricle, dilated right atrium, and severely elevated pulmonary artery pressure. REVIEW OF SYSTEMS: GENERAL: The patient denies fever or chills. CARDIOVASCULAR: The patient denies chest pain. Reports increasing lower extremity edema. RESPIRATORY: The patient reports shortness of breath. Denies cough, congestion , and wheezing. ABDOMEN: The patient reports increasing abdominal swelling. She denies abdominal pain. Denies nausea, vomiting, and diarrhea. The patient reports some constipation. EXTREMITIES: The patient reports increasing lower extremity swelling over the last week. NEUROLOGIC: The patient denies numbness, weakness, and daily headaches. PAST MEDICAL HISTORY: Significant for COPD, type 3 pulmonary hypertension with cor pulmonale, hypertension, hypothyroidism. PAST SURGICAL HISTORY: Patient has had a left breast cyst removal in addition to a thyroidectomy. FAMILY HISTORY: The patient reports a sister with diabetes mellitus. ALLERGIES: NO KNOWN DRUG ALLERGIES. MEDICATIONS: Current medications include: 1. Torsemide. 2. Spironolactone. The patient is unsure of other medicines she is taking currently. Discharge medications from her hospitalization on 09/15/2018 were: 1. Albuterol 2 puffs inhaled q.4 hours p.r.n. 2. Spironolactone 25 mg p.o. daily. 3. Torsemide 20 mg p.o. daily. 4. Aspirin 81 mg daily. 5. Mucinex 600 mg p.o. b.i.d. 6. DuoNeb 3 mL nebulized q.i.d. 7. Levaquin 750 mg p.o. daily for five days. 8. Synthroid 75 mcg p.o. daily. 9. Prednisone 40 mg p.o. daily. SOCIAL HISTORY: The patient is a current active smoker, approximately 1/2 pack per day. She denies alcohol and drug use. PHYSICAL EXAMINATION: VITAL SIGNS: Blood pressure is 115/78, pulse is 97, respiratory rate is 14, temperature is 98.3, and O2 saturation is 97% on 2 L nasal cannula. GENERAL: The patient is in no acute distress. Resting comfortably in bed. HEENT: The patient is normocephalic and atraumatic. Pupils are equal, round, and reactive to light with accommodation. Extraocular muscles are intact. CARDIOVASCULAR: Heart is regular rate and rhythm. There is a 3/6 systolic ejection murmur present. There are no rubs or gallops present. RESPIRATORY: There are mild scattered wheezes in all lung gilmore. Mild retractions. No paradoxical breathing. No accessory muscle use. ABDOMEN: Protuberant. There is a fluid wave palpated on physical exam. The patient does have hepatojugular reflux as well as JVD. EXTREMITIES: There is diffuse lower extremity edema that is 2+ to above the knee, concerning for anasarca. NEUROLOGIC: The patient is moving all extremities. There is no focal deficit. PERTINENT LABORATORY RESULTS: Results include BUN of 47, creatinine of 1.29, alkaline phosphatase 174, troponin is 0.032, BNP is 99.5. Chest x-ray showed increased vascular congestion and marked cardiomegaly. There is no pneumonia, edema, or pleural effusions present. ASSESSMENT AND PLAN: 1. Anasarca, likely secondary to cor pulmonale and dietary and fluid noncompliance. We will admit for tele observation and start with aggressive diuresis. The patient was given 80 mg of IV Lasix in the ED. We will continue with 40 mg IV Lasix b.i.d. and increase diuretic use as needed to ensure adequate diuresis. We will monitor daily weights and have strict I's and O's monitored on the patient. 2. Acute kidney injury. This is likely prerenal secondary to the patient's cor pulmonale and current volume status. We again will provide aggressive diuresis and anticipate that the BUN and creatinine will normalize with improved volume status. 3. Elevated alkaline phosphatase. This is likely secondary to hepatic congestion from the patient's right heart failure. We will continue diuresis and I will check a CMP daily to trend those labs. Of note, patient had no abdominal pain or discomfort on physical exam, negative Gómez, negative Rovsing. 4. Elevated troponin, currently 0.032. I will admit to tele observation for continued repeat troponins and trend. I would anticipate again with improved volume status, better cardiac perfusion with decreased demand, after improved volume status will improve her overall clinical picture. 5. Elevated BNP. Again, this is likely secondary to the patient's cor pulmonale from long-standing lung disease. Job ID: [id number] [facility]
--- NOTE | 2018-10-26 23:15 | HP ---
I have examined the patient. I have discussed the case with Dr. Phoenix Cardona and agree with his assessment and plan. HISTORY OF PRESENT ILLNESS: Briefly, Ms. Scott is a pleasant 58-year-old black female patient with COPD and cor pulmonale. She presented to the ER with increased peripheral edema and ascites of which she has a history. She was also more short of breath than usual. She was found to be in a degree of pulmonary edema as well as likely exacerbation of COPD. She has been admitted for further treatment. PHYSICAL EXAMINATION: VITAL SIGNS: Her blood pressure is 98/65, respirations are 30 and mildly labored. Her pulse is 98 and regular. She is afebrile. GENERAL: She is awake and alert and in mild respiratory distress. EAR, NOSE, AND THROAT: Mucous membranes moist. NECK: Supple. CARDIAC: PMI slightly displaced laterally. S4 gallop. Heart sounds are distant. No rub noted. LUNGS: Diffused moist rales heard to at least the mid lung gilmore bilaterally. ABDOMEN: Massive ascites. NEUROLOGICAL: No focal deficits. EXTREMITIES: 3+ edema. LABORATORY DATA: White count 8300, hemoglobin 13.5, hematocrit 44.8 with an MCV of 86.8. Chemistries: Sodium 140, potassium 4.6, chloride 96, bicarb 32, BUN 47, creatinine 1.29, which is an increase from her baseline. Glucose is 121. Troponins 0.032 and 3 hours later 0.015. Her BNP is 129. Chest x-ray shows stable cardiomegaly with mild vascular congestion. There is no overt edema or confluent pneumonia. ASSESSMENT: 1. Acute pulmonary congestion. 2. Chronic obstructive pulmonary disease with cor pulmonale. DISPOSITION: The patient will be admitted, started on her usual breathing treatments as well as intravenous diuretics. We will repeat an echo as there has likely been deterioration in her left ventricular function since her last echo of December 2017. Her overall prognosis is extremely poor. Job ID: [id number]
[2018-10-27] MEDS: Acetaminophen 325 MG TAB PO PRN ×2 (00:11→20:06)
[2018-10-27] MEDS ORDERED: Furosemide 40 MG/4 ML VIAL SLOW IVP SCH (06:00)
--- NOTE | 2018-10-27 06:23 | PDOC.FM ---
- Subjective Subjective: Ms. Forman denied any difficulty breathing or chest pain. She says her SOB has improved some. - Objective MAR Reviewed: Yes Vital Signs & Weight: Vital Signs (12 hours) Temp Pulse Resp BP BP Pulse Ox 10/27/18 03:45 98.0 F 96 22 H 113/56 L 96 10/27/18 02:20 94 L 10/27/18 02:13 94 18 93 L 10/27/18 00:00 100 20 116/72 92 L 10/26/18 20:14 100 22 H 10/26/18 20:00 93 L 10/26/18 19:28 97.5 F L 101 H 20 104/55 L 92 L Weight Weight 73.754 kg I&O: 10/25/18 10/26/18 10/27/18 06:59 06:59 06:59 Output Total 250 Balance -250 Result Diagrams: 10/27/18 05:02 10/27/18 05:02 Phys Exam - Physical Examination resting in bed Respiratory: wheezing present crackles b/l Cardiovascular: RRR, no significant murmur Gastrointestinal: non-tender, positive bowel sounds (significantly distended) Neurological: non-focal Psychiatric: normal affect Skin: normal turgor Dx/Plan (1) Anasarca Code(s): R60.1 - GENERALIZED EDEMA Status: Acute (2) Cor pulmonale (chronic) Code(s): I27.81 - COR PULMONALE (CHRONIC) Status: Acute (3) Right-sided congestive heart failure Code(s): I50.810 - RIGHT HEART FAILURE, UNSPECIFIED Status: Acute - Plan Plan: Anasarca 2/2 cor pulmonale and dietary noncompliance - continue diuresis and fluid restriction - monitor I/Os, daily weights - was on some lasix. Home meds include torsemide and spironolactone. Have not made much progress with diuresis with lasix. Will start bumex. ALICIA, resolved - Cr. 1.07 now. Will continue to monitor. Elevated alk phos - 2/2 above, stable Elevated troponin - downtrended, no chest pain Elevated BNP Diet: HH/fluid restriction Ppx: Lovenox Dispo: continue diuresis, consult PT/OT Addendum - Attending - Attending Attestation Date/Time: 10/27/181846 I personally evaluated the patient and discussed the management with Dr. Rizo I agree with the History, Examination, Assessment and Plan documented above with any addition or exceptions noted below. Patient with poor response to IV lasix thus far note was on torsemide previous will reconsider current loop diuretic choice and dosage. Patient with ascites which she relates is stable . Patient gives additional history of being followed at [facility] clinic [facility] well as [facility].
[2018-10-27 06:43] LABS: #Basophils 0.1 thou/uL (0.0-0.2); #Lymphocytes 1.8 thou/uL (1.20-3.40); #Monocytes 0.9 thou/uL (0.11-0.59); #Neutrophils 5.9 thou/uL (1.40-6.50); %Basophils 0.7 % (0.0-1.0); %Eosinophils 0.3 % (0.0-10.0); %Lymphocytes 20.7 % (21.0-51.0); %Monocytes 10.2 % (0.0-10.0); %Neutrophils 68.1 % (42.0-75.0); Hemoglobin 13.1 g/dL (12.0-16.0); Mean Corpuscular HGB CONC 29.3 g/dL (32.0-36.0); Mean Corpuscular Hemoglobin 25.8 pg (27.0-31.0); Mean Corpuscular Volume 87.9 fL (78.0-98.0); Mean Platelet Volume 10.3 fL (7.4-10.4); Platelet Count 297 thou/uL (130-400); RBC Distribution Width 18.6 % (11.5-14.5); Red Blood Cell (RBC) Count 5.08 mill/uL (4.20-5.40); White Blood Cell (WBC) Count 8.6 thou/uL (4.8-10.8)
[2018-10-27 07:13] LABS: ALT (SGPT) 15 U/L (8-55); AST (SGOT) 27 U/L (5-34); Albumin 3.3 g/dL (3.5-5.0); Alkaline Phosphatase 170 U/L (40-150); Anion Gap 16 mmol/L (10-20); BUN (Urea Nitrogen) 46 mg/dL (9.8-20.1); Calc. Creatinine Clearance 68 mL/min (70-130); Calcium 9.3 mg/dL (7.8-10.44); Carbon Dioxide 32 mmol/L (22-29); Chloride 98 mmol/L (98-107); Estimated GFR-MDRD 64; Globulin 3.6 g/dL (2.4-3.5); Glucose 98 mg/dL (70-105); Potassium 4.2 mmol/L (3.5-5.1); Protein, Total 6.9 g/dL (6.0-8.3); Sodium 142 mmol/L (136-145)
[2018-10-27] MEDS: Aspirin Chewable 81 MG TAB PO SCH (09:05)
[2018-10-27] MEDS: Senokot S 8.6-50 MG TAB PO PRN (14:40)
[2018-10-27] MEDS: Bumetanide 1 MG/4 ML VIAL IVP SCH (14:41)
[2018-10-28 06:18] LABS: ALT (SGPT) 17 U/L (8-55); AST (SGOT) 30 U/L (5-34); Albumin 3.3 g/dL (3.5-5.0); Alkaline Phosphatase 188 U/L (40-150); Anion Gap 15 mmol/L (10-20); BUN (Urea Nitrogen) 43 mg/dL (9.8-20.1); Calc. Creatinine Clearance 79 mL/min (70-130); Calcium 9.1 mg/dL (7.8-10.44); Carbon Dioxide 33 mmol/L (22-29); Chloride 97 mmol/L (98-107); Estimated GFR-MDRD 75; Globulin 3.8 g/dL (2.4-3.5); Glucose 100 mg/dL (70-105); Potassium 4.3 mmol/L (3.5-5.1); Protein, Total 7.1 g/dL (6.0-8.3); Sodium 141 mmol/L (136-145)
[2018-10-28] MEDS: Levothyroxine Sodium 75 MCG TAB PO SCH (06:19)
[2018-10-28] MEDS: Bumetanide 1 MG/4 ML VIAL IVP SCH ×2 (06:19→17:20)
--- NOTE | 2018-10-28 06:58 | PDOC.FM ---
- Subjective Subjective: Ms. Forman has no new complaints this morning. She reports some SOB but reports she is feeling a bit better overall. Is urinating frequently. - Objective Vital Signs & Weight: Vital Signs (12 hours) Temp Pulse Resp BP BP BP Pulse Ox 10/28/18 06:56 94 L 10/28/18 04:37 89 18 98/64 94 L 10/28/18 03:05 93 L 10/28/18 03:03 93 L 10/27/18 23:07 97.8 F 94 16 101/67 93 L 10/27/18 19:48 97.4 F L 10/27/18 19:45 93 L 10/27/18 19:30 99 16 107/61 99 Weight Weight 72.892 kg I&O: 10/26/18 10/27/18 10/28/18 06:59 06:59 06:59 Intake Total 120 720 Output Total 500 2600 Balance -380 -1880 Result Diagrams: 10/27/18 05:02 10/28/18 04:39 Phys Exam - Physical Examination Constitutional: NAD Crackles, minimal wheeze Cardiovascular: RRR, no significant murmur Gastrointestinal: positive bowel sounds (distended, not TTP) Neurological: non-focal Psychiatric: normal affect Skin: normal turgor Dx/Plan (1) Anasarca Code(s): R60.1 - GENERALIZED EDEMA Status: Acute (2) Cor pulmonale (chronic) Code(s): I27.81 - COR PULMONALE (CHRONIC) Status: Acute (3) Right-sided congestive heart failure Code(s): I50.810 - RIGHT HEART FAILURE, UNSPECIFIED Status: Acute - Plan Plan: Anasarca 2/2 cor pulmonale and dietary noncompliance - continue diuresis and fluid restriction - monitor I/Os, daily weights - Did not diurese well with Lasix. Has had significantly better diuresis with bumex. ALICIA, resolved - Cr. 1.07 now. Will continue to monitor. Elevated alk phos - 2/2 above, stable Elevated troponin - downtrended, no chest pain Elevated BNP Diet: HH/fluid restriction Ppx: Lovenox Dispo: continue diuresis with bumex. Will continue to moniotr VS. Consideration given to paracentesis but will not pursue today. Patient not really interested in this at that time. Addendum - Attending - Attending Attestation Date/Time: 10/28/18 [id number] I personally evaluated the patient and discussed the management with I agree with the History, Examination, Assessment and Plan documented above with any addition or exceptions noted below. Patient with significant ascites good diuresis with bumex. Will continue current therapy.
[2018-10-28] MEDS: Aspirin Chewable 81 MG TAB PO SCH (08:58)
[2018-10-28] MEDS: Acetaminophen 325 MG TAB PO PRN (20:04)
[2018-10-29 05:01] LABS: ALT (SGPT) 19 U/L (8-55); AST (SGOT) 31 U/L (5-34); Albumin 3.5 g/dL (3.5-5.0); Alkaline Phosphatase 195 U/L (40-150); Anion Gap 14 mmol/L (10-20); BUN (Urea Nitrogen) 44 mg/dL (9.8-20.1); Calc. Creatinine Clearance 74 mL/min (70-130); Calcium 9.3 mg/dL (7.8-10.44); Carbon Dioxide 35 mmol/L (22-29); Chloride 95 mmol/L (98-107); Estimated GFR-MDRD 71; Globulin 3.8 g/dL (2.4-3.5); Glucose 108 mg/dL (70-105); Potassium 3.9 mmol/L (3.5-5.1); Protein, Total 7.3 g/dL (6.0-8.3); Sodium 140 mmol/L (136-145)
--- NOTE | 2018-10-29 05:25 | PDOC.FM ---
- Subjective Subjective: NAEO. Reports breathing stable, not any better or worse. Unsure if leg swelling is better or worse. - Objective MAR Reviewed: Yes Vital Signs & Weight: Vital Signs (12 hours) Temp Pulse Resp BP Pulse Ox 10/29/18 03:42 86 16 97/54 L 93 L 10/29/18 02:04 94 L 10/29/18 02:03 93 L 10/28/18 23:44 98.4 F 94 16 97/56 L 94 L 10/28/18 20:25 96 10/28/18 19:34 93 L 10/28/18 19:24 97.5 F L 102 H 16 105/56 L 97 Weight Weight 72.892 kg I&O: 10/27/18 10/28/18 10/29/18 06:59 06:59 06:59 Intake Total 120 720 730 Output Total 500 2600 1800 Balance -380 -1880 -1070 Result Diagrams: 10/27/18 05:02 10/30/18 05:11 Phys Exam - Physical Examination Constitutional: NAD HEENT: moist MMs, sclera anicteric Neck: full ROM Respiratory: clear to auscultation bilateral Cardiovascular: RRR Gastrointestinal: non-tender distended Musculoskeletal: edema present 1+ edema up to med shins Neurological: moves all 4 limbs Dx/Plan (1) Anasarca Code(s): R60.1 - GENERALIZED EDEMA Status: Acute (2) Cor pulmonale (chronic) Code(s): I27.81 - COR PULMONALE (CHRONIC) Status: Acute (3) Metabolic alkalosis Code(s): E87.3 - ALKALOSIS Status: Acute (4) Right-sided congestive heart failure Code(s): I50.810 - RIGHT HEART FAILURE, UNSPECIFIED Status: Acute (5) Cor pulmonale Code(s): I27.81 - COR PULMONALE (CHRONIC) Status: Chronic (6) Diabetes type 2, controlled Code(s): E11.9 - TYPE 2 DIABETES MELLITUS WITHOUT COMPLICATIONS Status: Chronic Qualifiers: Diabetes mellitus termite inspector insulin use: without penitentiary use Diabetes mellitus complication status: without complication Qualified Code(s): E11.9 - Type 2 diabetes mellitus without complications - Plan Plan: #Anasarca 2/2 cor pulmonale and dietary noncompliance - diuresed 1.8L/24hrs, down 1L net balance - respiratory status at baseline with 2L home O2 - low sodium diet & fluid restriction - monitor I/Os, daily weights - refractory to IV lasix - continue IV bumex, monitor electrolytes #Metabolic alkalosis -likely CTX alklalosis in light of low BPs and heavy diuresis past few days -dec IV bumex to .5mg BID, monitor resp. status, inc. if needed -may need eventual transition to PO bumex -continue to monitor #ALICIA, resolved - Cr. 1.07 now. Will continue to monitor. #Elevated alk phos - 2/2 above, stable #Elevated troponin - downtrended, no chest pain #Elevated BNP Diet: HH/fluid restriction Ppx: Lovenox Dispo: Dec IV bumex dose, monitor BPs and I/O. discussed w/ Dr. Conteh Addendum - Attending - Attending Attestation Date/Time: 10/30/18 [id number] I personally evaluated the patient and discussed the management with Dr. Bhakta I agree with the History, Examination, Assessment and Plan documented above with any addition or exceptions noted below.
[2018-10-29] MEDS ORDERED: Bumetanide 1 MG/4 ML VIAL IVP SCH ×2 (06:00→10:15)
[2018-10-29] MEDS: Levothyroxine Sodium 75 MCG TAB PO SCH (06:17)
[2018-10-29] MEDS: Acetaminophen 325 MG TAB PO PRN ×2 (08:34→17:53)
[2018-10-29] MEDS: Aspirin Chewable 81 MG TAB PO SCH (08:34)
[2018-10-29] MEDS ORDERED: Bumetanide 1 MG/4 ML VIAL IVP ONE (10:00)
[2018-10-29] MEDS ORDERED: Cyclobenzaprine 10 MG TAB PO SCH (11:00)
[2018-10-29] MEDS: Bumetanide 1 MG/4 ML VIAL IVP SCH (13:58)
[2018-10-30] MEDS: Levothyroxine Sodium 75 MCG TAB PO SCH (05:32)
[2018-10-30] MEDS: Bumetanide 1 MG/4 ML VIAL IVP SCH ×2 (05:32→15:08)
[2018-10-30 05:52] LABS: ALT (SGPT) 18 U/L (8-55); AST (SGOT) 30 U/L (5-34); Albumin 3.3 g/dL (3.5-5.0); Alkaline Phosphatase 174 U/L (40-150); Anion Gap 17 mmol/L (10-20); BUN (Urea Nitrogen) 39 mg/dL (9.8-20.1); Bilirubin, Total 1.1 mg/dL (0.2-1.2); Calc. Creatinine Clearance 87 mL/min (70-130); Calcium 9.3 mg/dL (7.8-10.44); Carbon Dioxide 33 mmol/L (22-29); Chloride 96 mmol/L (98-107); Estimated GFR-MDRD 85; Globulin 3.6 g/dL (2.4-3.5); Glucose 120 mg/dL (70-105); Potassium 3.7 mmol/L (3.5-5.1); Protein, Total 6.9 g/dL (6.0-8.3); Sodium 142 mmol/L (136-145)
--- NOTE | 2018-10-30 06:39 | PDOC.FM ---
Addendum entered and electronically signed by Divine Bhakta MD 10/30/18 10:25 : A/P: -consult cardiology due to concern for anasarca refractory to torsemide and dec. effectivity with bumex -pt sees Dr. Rodriguez outpt. Was supposed to go to [place] at one point for surgery, unsure of further details Original Note: - Subjective Subjective: NAEO. Breathing the same. Hasn't walked around much. Abd swelling same. - Objective MAR Reviewed: Yes Vital Signs & Weight: Vital Signs (12 hours) Temp Pulse Resp BP Pulse Ox 10/30/18 04:00 97.5 F L 92 16 111/65 93 L 10/30/18 00:15 90 16 96 10/29/18 23:49 98.5 F 92 16 100/61 99 10/29/18 22:30 93 L 10/29/18 19:19 87 16 93 L 10/29/18 19:08 97.2 F L 100 16 110/71 93 L Weight Weight 73.482 kg I&O: 10/28/18 10/29/18 10/30/18 06:59 06:59 06:59 Intake Total 720 880 900 Output Total 2600 2400 800 Balance -1880 -1520 100 Result Diagrams: 10/27/18 05:02 10/30/18 05:11 Phys Exam - Physical Examination Constitutional: NAD HEENT: PERRLA, moist MMs crackles up to mid lung bases Cardiovascular: RRR, no significant murmur distended, non tender edema 1+ up to md liu Neurological: moves all 4 limbs Psychiatric: normal affect, A&O x 3 Skin: cap refill <2 seconds Dx/Plan (1) Anasarca Code(s): R60.1 - GENERALIZED EDEMA Status: Acute (2) Cor pulmonale (chronic) Code(s): I27.81 - COR PULMONALE (CHRONIC) Status: Acute (3) Metabolic alkalosis Code(s): E87.3 - ALKALOSIS Status: Acute (4) Right-sided congestive heart failure Code(s): I50.810 - RIGHT HEART FAILURE, UNSPECIFIED Status: Acute (5) Cor pulmonale Code(s): I27.81 - COR PULMONALE (CHRONIC) Status: Chronic (6) Diabetes type 2, controlled Code(s): E11.9 - TYPE 2 DIABETES MELLITUS WITHOUT COMPLICATIONS Status: Chronic Qualifiers: Diabetes mellitus corsetier insulin use: without corsetier use Diabetes mellitus complication status: without complication Qualified Code(s): E11.9 - Type 2 diabetes mellitus without complications - Plan Plan: #Anasarca 2/2 cor pulmonale and dietary noncompliance - diuresed 800cc/24hrs, down 1L net balance - respiratory status at baseline with 2L home O2 - low sodium diet & fluid restriction - monitor I/Os, daily weights - refractory to IV lasix - inc bumex to 2mg IVP BID since BPs can tolerate, continue observing #Cor pulmonale 2/2 Elevated Pulm artery pressure -TTE: elevated pulm art. pressure, enlarged right atrium -continuous O2 for PH likely 2/2 chronic COPD #Metabolic alkalosis -likely CTX alklalosis in light of low BPs and heavy diuresis past few days -will continue to monitor #ALICIA, resolved #Elevated alk phos - 2/2 above, stable #Elevated troponin - downtrended, no chest pain Diet: HH/fluid restriction Ppx: Lovenox Dispo: Dec IV bumex dose, monitor BPs and I/O. discussed w/ Dr. Conteh Addendum - Attending - Attending Attestation Date/Time: 10/30/18 1046 I personally evaluated the patient and discussed the management with Dr. Bhakta I agree with the History, Examination, Assessment and Plan documented above with any addition or exceptions noted below. We are making poor progress still marked fluid overload significant ascites and pitting edema lower extremeness will consult Cardiology for further recommendations.
[2018-10-30] MEDS: Aspirin Chewable 81 MG TAB PO SCH (08:05)
[2018-10-30] MEDS: Acetaminophen 325 MG TAB PO PRN ×2 (08:05→23:39)
[2018-10-30] MEDS ORDERED: Bumetanide 1 MG/4 ML VIAL IVP SCH ×3 (10:30→14:00)
[2018-10-30] MEDS ORDERED: Cyclobenzaprine 10 MG TAB PO SCH (10:30)
[2018-10-30] MEDS: Senokot S 8.6-50 MG TAB PO PRN (11:30)
[2018-10-30] MEDS: DOBUTamine 500 mg/250 ml 250 ML IVPB SCH (15:17)
[2018-10-31] MEDS: Levothyroxine Sodium 75 MCG TAB PO SCH (05:25)
[2018-10-31] MEDS: Bumetanide 1 MG/4 ML VIAL IVP SCH ×2 (05:26→15:35)
[2018-10-31 05:53] LABS: ALT (SGPT) 20 U/L (8-55); AST (SGOT) 39 U/L (5-34); Albumin 3.4 g/dL (3.5-5.0); Alkaline Phosphatase 188 U/L (40-150); Anion Gap 17 mmol/L (10-20); BUN (Urea Nitrogen) 34 mg/dL (9.8-20.1); Bilirubin, Total 1.4 mg/dL (0.2-1.2); Calc. Creatinine Clearance 92 mL/min (70-130); Calcium 9.6 mg/dL (7.8-10.44); Carbon Dioxide 36 mmol/L (22-29); Chloride 95 mmol/L (98-107); Estimated GFR-MDRD Greater than 90; Globulin 3.9 g/dL (2.4-3.5); Glucose 86 mg/dL (70-105); Potassium 3.8 mmol/L (3.5-5.1); Protein, Total 7.3 g/dL (6.0-8.3); Sodium 144 mmol/L (136-145)
--- NOTE | 2018-10-31 05:59 | PDOC.FM ---
- Subjective Subjective: Pt reports feeling tired, but resting comfortably, denies any new complaints or concerns at this time. Denies new SOB or CP - Objective Vital Signs & Weight: Vital Signs (12 hours) Temp Pulse Resp BP Pulse Ox 10/31/18 03:17 98.4 F 96 16 107/62 94 L 10/31/18 00:18 101 H 20 74 L 10/30/18 20:00 98.0 F 98 24 H 113/60 96 10/30/18 19:14 97.8 F 104 H 18 122/61 91 L Weight Weight 72.484 kg I&O: 10/29/18 10/30/18 10/31/18 06:59 06:59 06:59 Intake Total 880 900 600 Output Total 2400 800 2325 Balance -1520 100 -1725 Result Diagrams: 10/27/18 05:02 10/31/18 05:05 Phys Exam - Physical Examination Constitutional: NAD HEENT: moist MMs, sclera anicteric Neck: no JVD, supple Respiratory: no wheezing, clear to auscultation bilateral Cardiovascular: RRR, no rub Gastrointestinal: soft, non-tender Musculoskeletal: no edema, pulses present Neurological: normal sensation, moves all 4 limbs Psychiatric: normal affect, A&O x 3 Skin: normal turgor, cap refill <2 seconds Dx/Plan (1) Acute exacerbation of congestive heart failure Code(s): I50.9 - HEART FAILURE, UNSPECIFIED Status: Acute Qualifiers: Heart failure type: diastolic Qualified Code(s): I50.33 - Acute on chronic diastolic (congestive) heart failure (2) Acute on chronic respiratory failure with hypoxia Code(s): J96.21 - ACUTE AND CHRONIC RESPIRATORY FAILURE WITH HYPOXIA Status: Acute (3) Anasarca Code(s): R60.1 - GENERALIZED EDEMA Status: Acute (4) Diabetes type 2, controlled Code(s): E11.9 - TYPE 2 DIABETES MELLITUS WITHOUT COMPLICATIONS Status: Chronic Qualifiers: Diabetes mellitus manager intermediate insulin use: without intermediate use Diabetes mellitus complication status: without complication Qualified Code(s): E11.9 - Type 2 diabetes mellitus without complications (5) Hypertension Code(s): I10 - ESSENTIAL (PRIMARY) HYPERTENSION Status: Chronic Qualifiers: Hypertension type: essential hypertension Qualified Code(s): I10 - Essential (primary) hypertension - Plan Plan: Anasarca 2/2 cor pulmonale and dietary noncompliance A- diuresing well, respiratory status at baseline with 2L home O2 P- low sodium diet & fluid restriction - monitor I/Os, daily weights - Cards added dobutamine and increased bumex to 3mg IVP BID since BPs can tolerate, continue observing Cor pulmonale 2/2 Elevated Pulm artery pressure A-TTE: elevated pulm art. pressure, enlarged right atrium P-continuous O2 for PH likely 2/2 chronic COPD COPD A- not in exacerbation P- duonebs prn -O2 as above Metabolic alkalosis A- likely CTX alklalosis in light of low BPs and heavy diuresis past few days P- will continue to monitor ALICIA, resolved Elevated alk phos - 2/2 above, stable Elevated troponin - downtrended, no chest pain Diet: HH/fluid restriction Ppx: Lovenox
--- NOTE | 2018-10-31 07:07 | CON ---
DATE OF CONSULTATION: 10/30/2018 [employer]ER: Oliver Rodriguez MD HISTORY OF PRESENT ILLNESS: Ms. Scott is a pleasant 58-year-old female, who comes to the hospital for increased shortness of breath. She has severe pulmonary hypertension and has been accumulating fluid in the last few weeks to months. She presents with severe ascites and volume overload. She was started on diuresis and she started diuresing well, but since she has stopped diuresing, she continues to be significantly short winded. Cardiology is being consulted for further evaluation. PAST MEDICAL HISTORY: 1. Pulmonary hypertension. 2. Noncompliance. 3. COPD. 4. Hypertension. 5. Hypothyroidism. SURGICAL HISTORY: 1. Left breast cyst removal. 2. Thyroidectomy. FAMILY HISTORY: Sister with diabetes. OUTPATIENT MEDICATIONS: 1. Torsemide. 2. Spironolactone. No other medications. When she was discharged just a month ago, she was on several other medications that she has not been taking. ALLERGIES: NO KNOWN DRUG ALLERGIES. SOCIAL HISTORY: Continues to smoke half a pack a day. Denies alcohol or drug use. REVIEW OF SYSTEMS: A 12-point review of systems was done and was all negative unless stated in the history of present illness. PHYSICAL EXAMINATION: VITAL SIGNS: Temperature 97.6, pulse 94, respiratory rate 18, saturations 94% on nasal cannula 2 L, blood pressure 109/64. GENERAL: Awake, alert, oriented x3. No distress. HEENT: Normocephalic, atraumatic. NECK: Supple. LUNGS: Clear. CARDIOVASCULAR: S1 and S2. No S3 or S4. No murmurs. ABDOMEN: There is a grade 2/6 systolic murmur right in the fourth intercostal space, parasternal area. Abdomen has a large amount of ascites. EXTREMITIES: 2+ edema. SKIN: Warm and dry. LABORATORY DATA: Laboratory work was reviewed. Her CBC is unremarkable. Chemistries are unremarkable. BUN and creatinine are normal. GFR of 85. Troponin was in the indeterminate range. BNP was 929. EKG was reviewed. Chest x-ray was reviewed. ASSESSMENT AND PLAN: 1. Severe right ventricular failure. 2. Pulmonary hypertension. 3. Chronic obstructive pulmonary disease. 4. Noncompliance. 5. Tobacco use. PLAN: 1. We will try to diurese her some more by increasing her dose of Bumex from 2 to 3 mg IV twice a day. 2. We will add dobutamine at 5 to see if we can increase the forward flow. If this does not work, we may have to do either Milrinone drip in the unit versus a large volume paracentesis with administration of albumin. 3. , Job ID: [id number]
[2018-10-31] MEDS: Aspirin Chewable 81 MG TAB PO SCH (09:52)
[2018-10-31] MEDS: Acetaminophen 325 MG TAB PO PRN ×2 (09:52→21:47)
[2018-10-31] MEDS ORDERED: Enoxaparin Sodium 40 MG/0.4 ML SYRINGE SC SCH (12:00)
--- NOTE | 2018-10-31 14:00 | PRG ---
DATE OF SERVICE: 10/31/2018 Ms. Scott appears to be uncomfortable. She is still quite bloated and has anasarca. She is short of breath even at rest. We have instituted treatment with a dobutamine infusion and switched her to a higher dose of Bumex to initiate some diuresis. We would need to continue to further fluid restrict her. I believe her overall prognosis is poor. We may need at some point to do a therapeutic large volume paracentesis. We certainly appreciate the input from Cardiology. Job ID: [id number]
--- NOTE | 2018-10-31 15:48 | PDOC.CTH ---
Cardiology Progress Note - Subjective She has diuresed much more since dobutamine started and increased dose of Bumex. Still SOB. - Objective Vital Signs Temp Pulse Resp BP Pulse Ox 10/31/18 11:48 97.8 F 94 17 114/63 95 10/31/18 08:21 97.6 F 90 20 109/56 L 93 L 10/31/18 06:46 89 20 96 Weight 159 lb 12.8 oz 10/30/18 10/31/18 11/01/18 06:59 06:59 06:59 Intake Total 900 900 Output Total 800 3025 Balance 100 -2125 - Physical Examination General/Neuro: alert & oriented x3, NAD Neck: no JVD present Lungs: unlabored respirations Heart: RRR Abdomen: other: (Adscitis has improved but still present. ) Extremities: + edema B (2+) - Telemetry Telemetry Rhythm: NSR - Labs Result Diagrams: 10/27/18 05:02 10/31/18 05:05 Troponin/CKMB CK-MB (CK-2) 2.8 ng/mL (0-6.6) 10/26/18 12:10 Troponin I 0.041 ng/mL (< 0.028) H 10/26/18 19:35 - Assessment/Plan 1. Cor pulmonale 2. RV failure. 3. COPD 4. Ongoing tobacco use 5. Non compliance. PLAN: - Continue dobutamine and increased dose of IV bumex. - If ascitis corley not improve will need large volume paracentesis with albumin administration.
[2018-10-31] MEDS: DOBUTamine 500 mg/250 ml 250 ML IVPB SCH (17:04)
[2018-11-01] MEDS: Ibuprofen 600 MG TAB PO PRN ×2 (05:57→22:39)
[2018-11-01] MEDS: Levothyroxine Sodium 75 MCG TAB PO SCH (05:58)
[2018-11-01] MEDS: Bumetanide 1 MG/4 ML VIAL IVP SCH ×2 (05:58→15:12)
--- NOTE | 2018-11-01 06:06 | PDOC.CTH ---
Cardiology Progress Note - Subjective Feels better. Less SOB noted. - Objective Vital Signs Temp Pulse Resp BP Pulse Ox 11/01/18 04:00 97 F L 92 16 107/57 L 90 L 11/01/18 00:55 90 20 95 11/01/18 00:00 97 F L 103 H 16 113/60 92 L 10/31/18 20:25 92 L 10/31/18 19:52 98.2 F 98 16 114/56 L 92 L 10/31/18 18:16 20 Weight 159 lb 12.8 oz 10/30/18 10/31/18 11/01/18 06:59 06:59 06:59 Intake Total 900 900 480 Output Total 800 3025 1550 Balance 100 -6221 -4480 - Physical Examination General/Neuro: NAD Neck: no JVD present Lungs: unlabored respirations Heart: PMI normal, RRR Abdomen: NT/ND Extremities: + femoral B - Labs Result Diagrams: 10/27/18 05:02 11/01/18 05:40 Troponin/CKMB CK-MB (CK-2) 2.8 ng/mL (0-6.6) 10/26/18 12:10 Troponin I 0.041 ng/mL (< 0.028) H 10/26/18 19:35 - Assessment/Plan Cor pulmonale Severe pulmonary HTN Likely IGNACIO Tobacco abuse Responded to bumex and dobutamine Add zaroxylyn Pt now with insurance coverage; Strongly recommend OP sleep study Still smoking Compliance has always been a concern
[2018-11-01 06:33] LABS: ALT (SGPT) 22 U/L (8-55); AST (SGOT) 33 U/L (5-34); Albumin 3.4 g/dL (3.5-5.0); Alkaline Phosphatase 187 U/L (40-150); BUN (Urea Nitrogen) 31 mg/dL (9.8-20.1); Bilirubin, Total 1.5 mg/dL (0.2-1.2); Calc. Creatinine Clearance 96 mL/min (70-130); Calcium 9.8 mg/dL (7.8-10.44); Estimated GFR-MDRD Greater than 90; Globulin 3.8 g/dL (2.4-3.5); Glucose 81 mg/dL (70-105); Protein, Total 7.2 g/dL (6.0-8.3)
[2018-11-01 06:44] LABS: Anion Gap 20 mmol/L (10-20); Carbon Dioxide 33 mmol/L (22-29); Chloride 93 mmol/L (98-107); Potassium 3.6 mmol/L (3.5-5.1); Sodium 142 mmol/L (136-145)
--- NOTE | 2018-11-01 08:57 | PDOC.FM ---
- Subjective Subjective: Pt reports feeling no different than other days though she continues to diurese. She does complain of some L sided neck/trap pain. no other concerns or changes - Objective Vital Signs & Weight: Vital Signs (12 hours) Temp Pulse Resp BP Pulse Ox 11/01/18 06:43 90 L 11/01/18 06:42 98 20 90 L 11/01/18 04:00 97 F L 92 16 107/57 L 90 L 11/01/18 00:55 90 20 95 11/01/18 00:00 97 F L 103 H 16 113/60 92 L Weight Weight 72.484 kg I&O: 10/31/18 11/01/18 11/02/18 06:59 06:59 06:59 Intake Total 900 480 300 Output Total 3025 1550 1400 Balance -5570 -0407 -1100 Result Diagrams: 10/27/18 05:02 11/01/18 05:40 Phys Exam - Physical Examination Constitutional: NAD HEENT: moist MMs, sclera anicteric mild ttp of L lateral neck/trap insertion, muscle is tight Respiratory: no wheezing, no rhonchi Cardiovascular: RRR, no significant murmur Gastrointestinal: non-tender, positive bowel sounds edema bilat LE up to mid ponce Neurological: normal sensation, moves all 4 limbs Psychiatric: normal affect Skin: no rash, normal turgor Dx/Plan (1) Acute exacerbation of congestive heart failure Code(s): I50.9 - HEART FAILURE, UNSPECIFIED Status: Acute Qualifiers: Heart failure type: diastolic Qualified Code(s): I50.33 - Acute on chronic diastolic (congestive) heart failure (2) Acute on chronic respiratory failure with hypoxia Code(s): J96.21 - ACUTE AND CHRONIC RESPIRATORY FAILURE WITH HYPOXIA Status: Acute (3) Anasarca Code(s): R60.1 - GENERALIZED EDEMA Status: Acute (4) Diabetes type 2, controlled Code(s): E11.9 - TYPE 2 DIABETES MELLITUS WITHOUT COMPLICATIONS Status: Chronic Qualifiers: Diabetes mellitus nursing home insulin use: without nursing home use Diabetes mellitus complication status: without complication Qualified Code(s): E11.9 - Type 2 diabetes mellitus without complications (5) Hypertension Code(s): I10 - ESSENTIAL (PRIMARY) HYPERTENSION Status: Chronic Qualifiers: Hypertension type: essential hypertension Qualified Code(s): I10 - Essential (primary) hypertension - Plan Plan: Anasarca 2/2 cor pulmonale and dietary noncompliance A- diuresing well, respiratory status at baseline with 2L home O2 P- low sodium diet & fluid restriction - monitor I/Os, daily weights - Cards added dobutamine and increased bumex to 3mg IVP BID since BPs can tolerate, continue observing Cor pulmonale 2/2 Elevated Pulm artery pressure A-TTE: elevated pulm art. pressure, enlarged right atrium P-continuous O2 for PH likely 2/2 chronic COPD COPD A- not in exacerbation P- duonebs prn -O2 as above ALICIA, resolved Elevated alk phos - 2/2 above, stable Elevated troponin - downtrended, no chest pain Diet: HH/fluid restriction Ppx: Lovenox
[2018-11-01] MEDS: Aspirin Chewable 81 MG TAB PO SCH (09:55)
[2018-11-01] MEDS: Enoxaparin Sodium 40 MG/0.4 ML SYRINGE SC SCH (09:55)
--- NOTE | 2018-11-01 12:00 | PRG ---
DATE OF SERVICE: 11/01/2018 SUBJECTIVE: Ms. Scott is continuing to receive a dobutamine infusion as well as intravenous Bumex. She still has significant amount of ascites most likely benefit from a palliative paracentesis. This will be accomplished later this afternoon. In the meantime, we will continue with dobutamine infusion as well as Bumex in addition to her oral medications in order to relieve her some of her anasarca. Job ID: [id number]
[2018-11-01 14:02] LABS: INR-International Normal Ratio 1.2; PTT 34.5 SEC (22.9-36.1)
[2018-11-01] MEDS: DOBUTamine 500 mg/250 ml 250 ML IVPB SCH (17:18)
[2018-11-02] MEDS: Levothyroxine Sodium 75 MCG TAB PO SCH (05:32)
[2018-11-02] MEDS: Bumetanide 1 MG/4 ML VIAL IVP SCH ×2 (05:32→16:04)
--- NOTE | 2018-11-02 06:22 | PDOC.CTH ---
Cardiology Progress Note - Subjective Feels better. Continues to diurese. - Objective Vital Signs Temp Pulse Resp BP BP Pulse Ox 11/02/18 04:00 97.7 F 94 16 97/56 L 96 11/02/18 00:00 98.3 F 103 H 16 115/56 L 96 11/01/18 20:36 93 L 11/01/18 20:25 97.5 F L 105 H 16 111/59 L 93 L 11/01/18 18:28 99 16 Weight 158 lb 10/31/18 11/01/18 11/02/18 06:59 06:59 06:59 Intake Total 900 480 780 Output Total 1465 5856 7754 Balance -4309 -1998 -3880 - Physical Examination General/Neuro: alert & oriented x3, NAD Neck: carotid US brisk, no JVD present Lungs: CTA, unlabored respirations, other: (crackles bialterally) Heart: PMI normal, RRR Abdomen: NT/ND, soft Extremities: + femoral B - Telemetry Telemetry Rhythm: sr - Labs Result Diagrams: 10/27/18 05:02 11/01/18 05:40 Troponin/CKMB CK-MB (CK-2) 2.8 ng/mL (0-6.6) 10/26/18 12:10 Troponin I 0.041 ng/mL (< 0.028) H 10/26/18 19:35 - Assessment/Plan Cor pulmonale Severe pulmonary HTN Likely IGNACIO Tobacco abuse Non-compliance REC 11/02 paracentiesis today On zaroxylyn, bumex discussed op sleep study Stop smoking (still smoking 1 pk per day) REC11/01 Responded to bumex and dobutamine Add zaroxylyn Pt now with insurance coverage; Strongly recommend OP sleep study Still smoking Compliance has always been a concern
--- NOTE | 2018-11-02 09:01 | PDOC.FM ---
- Subjective Subjective: Pt feeling well this AM, denies SOB. Reports she feels ready for paracentesis. - Objective Vital Signs & Weight: Vital Signs (12 hours) Temp Pulse Pulse Pulse Resp BP BP 11/02/18 07:41 97.9 F 92 20 98/63 11/02/18 07:36 93 96 96/56 L 11/02/18 04:00 97.7 F 94 16 97/56 L 11/02/18 00:00 98.3 F 103 H 16 115/56 L Pulse Ox Pulse Ox Pulse Ox 11/02/18 07:41 93 L 11/02/18 07:36 79 L 81 L 11/02/18 04:00 96 11/02/18 00:00 96 Weight Weight 71.668 kg I&O: 11/01/18 11/02/18 11/03/18 06:59 06:59 06:59 Intake Total 480 780 Output Total 1550 3055 300 Balance -1070 -2895 -300 Result Diagrams: 10/27/18 05:02 11/01/18 05:40 Phys Exam - Physical Examination Constitutional: NAD HEENT: moist MMs, sclera anicteric Neck: no JVD, supple Respiratory: no wheezing, clear to auscultation bilateral Cardiovascular: RRR, no significant murmur Gastrointestinal: soft, non-tender Musculoskeletal: pulses present, edema present Neurological: normal sensation, moves all 4 limbs Psychiatric: normal affect Skin: no rash, normal turgor Dx/Plan (1) Acute exacerbation of congestive heart failure Code(s): I50.9 - HEART FAILURE, UNSPECIFIED Status: Acute Qualifiers: Heart failure type: diastolic Qualified Code(s): I50.33 - Acute on chronic diastolic (congestive) heart failure (2) Acute on chronic respiratory failure with hypoxia Code(s): J96.21 - ACUTE AND CHRONIC RESPIRATORY FAILURE WITH HYPOXIA Status: Acute (3) Anasarca Code(s): R60.1 - GENERALIZED EDEMA Status: Acute (4) Diabetes type 2, controlled Code(s): E11.9 - TYPE 2 DIABETES MELLITUS WITHOUT COMPLICATIONS Status: Chronic Qualifiers: Diabetes mellitus bed bug exterminator insulin use: without longterm use Diabetes mellitus complication status: without complication Qualified Code(s): E11.9 - Type 2 diabetes mellitus without complications (5) Hypertension Code(s): I10 - ESSENTIAL (PRIMARY) HYPERTENSION Status: Chronic Qualifiers: Hypertension type: essential hypertension Qualified Code(s): I10 - Essential (primary) hypertension - Plan Plan: Anasarca 2/2 cor pulmonale and dietary noncompliance A- diuresing well, respiratory status at baseline with 2L home O2 P- low sodium diet & fluid restriction - monitor I/Os, daily weights -continue bumex and dobutamine per cards recs, added metolazone today -plan for diagnostic/therapeautic paracentesis today Cor pulmonale 2/2 Elevated Pulm artery pressure A-TTE: elevated pulm art. pressure, enlarged right atrium P-continuous O2 for PH likely 2/2 chronic COPD COPD A- not in exacerbation P- duonebs prn -O2 as above ALICIA, resolved Elevated alk phos - 2/2 above, stable Elevated troponin - downtrended, no chest pain Diet: HH/fluid restriction Ppx: Lovenox
[2018-11-02] MEDS: Enoxaparin Sodium 40 MG/0.4 ML SYRINGE SC SCH (10:12)
--- NOTE | 2018-11-02 11:43 | PRG ---
DATE OF SERVICE: 11/02/2018 Ms. Scott has demonstrated no significant clinical changes. We have asked IR to perform paracentesis in order to alleviate some of the pressure on the diaphragm. We will also study cells to ensure that this is indeed ascites secondary to heart failure rather than malignancy, etc. Job ID: [id number]
[2018-11-02 12:50] LABS: BF Color Yellow; Body Fluid Source Ascites Body Fluid; Clarity Hazy (Clear); RBC Background Count 0.001; Tube # EDTA; WBC/NonHematic-Auto 539 /cumm
[2018-11-02] MEDS: Aspirin Chewable 81 MG TAB PO SCH (12:50)
[2018-11-02] MEDS: Metolazone 2.5 MG TAB PO SCH (12:50)
[2018-11-02 13:06] LABS: BF RBC Count - Manual 1425 /cumm
[2018-11-02 13:13] LABS: BF Segmented Neutrophils 20 %; Cell Count Non Hematic 50 %; Lymphocytes 30 %
--- NOTE | 2018-11-02 14:58 | ULT ---
Ultrasound-guided paracentesis therapeutic and diagnostic: 11/02/2018 HISTORY: 58-year-old female with abdominal distention due to ascites. No prior paracentesis procedures. TECHNIQUE: Signed informed consent obtained. Four-quadrant survey of abdominal cavity with ultrasound. Right low er quadrant selected. Overlying skin prepared and draped in usual sterile fashion. 25-gauge needle used to apply buffered lidocaine superficially and deeply. In tandem with the 25-gauge needle, a 5 Fr [employer]ycle[employer] jellyfish catheter was advanced into the pocket of free intraperitoneal fluid. 25-gauge needle and stylette were removed. The catheter was connected to evacuated bottles via plastic tubing. After drai nage, catheter was removed. Patient tolerated the procedure well. No complications. One of the evacuated bottles was sent to laboratory for analysis. FINDINGS: Prior to the procedure, there is a moderate to large amount of ascites. Post procedure image of right lower quadrant shows significant interval decrease in volume of free fl uid, small amount in that location. A total of 2400 mL of nonhemorrhagic ascites was drained. IMPRESSION: 1. Successful paracentesis. 2. Drainage of 2.4 L of ascites fluid. 3. One bottle was sent to laboratory.
[2018-11-02] MEDS: DOBUTamine 500 mg/250 ml 250 ML IVPB SCH (17:14)
[2018-11-02] MEDS: Ibuprofen 600 MG TAB PO PRN (20:12)
--- NOTE | 2018-11-03 05:28 | PDOC.CTH ---
Cardiology Progress Note - Subjective feels better overall. 2.4 liters removed yesterday - Objective Vital Signs Temp Pulse Resp BP BP Pulse Ox 11/03/18 04:22 93 98/56 L 11/03/18 04:00 98.0 F 90 18 86/54 L 91 L 11/03/18 00:00 98.8 F 95 19 106/55 L 91 L 11/02/18 20:25 93 L 11/02/18 20:00 97.8 F 108 H 19 112/71 93 L 11/02/18 18:23 106 H 20 Weight 158 lb 11/01/18 11/02/18 11/03/18 06:59 06:59 06:59 Intake Total 666 227 6794 Output Total 1550 2185 2049 Balance -0977 -7135 -117 - Physical Examination General/Neuro: NAD Neck: carotid US brisk, no JVD present Lungs: unlabored respirations Heart: PMI normal, RRR Abdomen: no HSM, NT/ND, soft Extremities: + femoral B - Labs Result Diagrams: 10/27/18 05:02 11/03/18 07:16 Troponin/CKMB CK-MB (CK-2) 2.8 ng/mL (0-6.6) 10/26/18 12:10 Troponin I 0.041 ng/mL (< 0.028) H 10/26/18 19:35 - Assessment/Plan Cor pulmonale Severe pulmonary HTN Likely IGNACIO Tobacco abuse Non-compliance REC 11/03 2.4L removed from paracentesis Continue with bumex, zarozyln Fluid restrict Low Na OP sleep study Stop dobutrex tomorrow REC 11/02 paracentiesis today On zaroxylyn, bumex discussed op sleep study Stop smoking (still smoking 1 pk per day) REC11/01 Responded to bumex and dobutamine Add zaroxylyn Pt now with insurance coverage; Strongly recommend OP sleep study Still smoking Compliance has always been a concern
[2018-11-03] MEDS: Levothyroxine Sodium 75 MCG TAB PO SCH (06:21)
[2018-11-03] MEDS: Bumetanide 1 MG/4 ML VIAL IVP SCH ×2 (06:21→14:37)
[2018-11-03 08:18] LABS: BUN (Urea Nitrogen) 34 mg/dL (9.8-20.1); Calc. Creatinine Clearance 89 mL/min (70-130); Calcium 10.4 mg/dL (7.8-10.44); Estimated GFR-MDRD 90; Glucose 78 mg/dL (70-105)
[2018-11-03 08:27] LABS: Anion Gap 20 mmol/L (10-20); Carbon Dioxide 36 mmol/L (22-29); Chloride 88 mmol/L (98-107); Potassium 3.4 mmol/L (3.5-5.1); Sodium 141 mmol/L (136-145)
[2018-11-03] MEDS: Metolazone 2.5 MG TAB PO SCH (08:49)
[2018-11-03] MEDS: Enoxaparin Sodium 40 MG/0.4 ML SYRINGE SC SCH (08:49)
[2018-11-03] MEDS: Aspirin Chewable 81 MG TAB PO SCH (08:49)
--- NOTE | 2018-11-03 08:52 | PDOC.FM ---
- Subjective Subjective: Pt feeling better and less SOB after paracentesis. Reports she feels good enough to go home. No new complaints at this time. - Objective Vital Signs & Weight: Vital Signs (12 hours) Temp Pulse Resp BP BP Pulse Ox 11/03/18 07:35 97.8 F 90 14 116/58 L 90 L 11/03/18 06:42 92 20 92 L 11/03/18 04:22 93 98/56 L 11/03/18 04:00 98.0 F 90 18 86/54 L 91 L 11/03/18 00:00 98.8 F 95 19 106/55 L 91 L Weight Weight 71.668 kg I&O: 11/02/18 11/03/18 11/04/18 06:59 06:59 06:59 Intake Total 780 1933 120 Output Total 5242 4885 900 Balance -2895 -117 -780 Result Diagrams: 10/27/18 05:02 11/03/18 07:16 Phys Exam - Physical Examination Constitutional: NAD HEENT: moist MMs, sclera anicteric Neck: supple, full ROM Respiratory: no wheezing minimal inspiratory crackles in bilat lung base (much improved) Cardiovascular: RRR, no significant murmur Gastrointestinal: soft, non-tender Musculoskeletal: no edema (improved), pulses present Neurological: normal sensation, moves all 4 limbs Psychiatric: normal affect Skin: no rash, normal turgor Dx/Plan (1) Acute exacerbation of congestive heart failure Code(s): I50.9 - HEART FAILURE, UNSPECIFIED Status: Acute Qualifiers: Heart failure type: diastolic Qualified Code(s): I50.33 - Acute on chronic diastolic (congestive) heart failure (2) Acute on chronic respiratory failure with hypoxia Code(s): J96.21 - ACUTE AND CHRONIC RESPIRATORY FAILURE WITH HYPOXIA Status: Acute (3) Anasarca Code(s): R60.1 - GENERALIZED EDEMA Status: Acute (4) Diabetes type 2, controlled Code(s): E11.9 - TYPE 2 DIABETES MELLITUS WITHOUT COMPLICATIONS Status: Chronic Qualifiers: Diabetes mellitus marine oil terminal superintendent insulin use: without marine oil terminal superintendent use Diabetes mellitus complication status: without complication Qualified Code(s): E11.9 - Type 2 diabetes mellitus without complications (5) Hypertension Code(s): I10 - ESSENTIAL (PRIMARY) HYPERTENSION Status: Chronic Qualifiers: Hypertension type: essential hypertension Qualified Code(s): I10 - Essential (primary) hypertension - Plan Plan: Anasarca 2/2 cor pulmonale and dietary noncompliance A- diuresing well, s/p paracentesis pulling off 2.4L. respiratory status at baseline with 2L home O2 P- low sodium diet & fluid restriction - monitor I/Os, daily weights -continue bumex and metolazone, will consider DC dobutamine -discuss dispo today on rounds Cor pulmonale 2/2 Elevated Pulm artery pressure A-TTE: elevated pulm art. pressure, enlarged right atrium P-continuous O2 for PH likely 2/2 chronic COPD COPD A- not in exacerbation P- duonebs -O2 as above ALICIA, resolved Elevated alk phos - 2/2 above, stable Elevated troponin - downtrended, no chest pain Diet: HH/fluid restriction Ppx: Lovenox
--- NOTE | 2018-11-03 12:22 | PRG ---
DATE OF SERVICE: Ms. Scott looks and feels much better since her paracentesis, which took off several liters of fluid. She is not as tachypneic and appears more comfortable. We will discuss with Cardiology how long it is planned to use the dobutamine infusion. She is nearing a point where clinically and symptomatically she is ready for discharge. Job ID: [id number]
[2018-11-03] MEDS ORDERED: DOBUTamine 500 mg/250 ml 250 ML IVPB SCH (13:49)
[2018-11-03 15:35] VITALS: BMI 24.0
[2018-11-03] MEDS: Ibuprofen 600 MG TAB PO PRN (20:02)
[2018-11-04 06:01] LABS: BUN (Urea Nitrogen) 39 mg/dL (9.8-20.1); Calc. Creatinine Clearance 73 mL/min (70-130); Calcium 10.2 mg/dL (7.8-10.44); Estimated GFR-MDRD 78; Glucose 81 mg/dL (70-105)
[2018-11-04 06:10] LABS: Anion Gap 23 mmol/L (10-20); Carbon Dioxide 33 mmol/L (22-29); Chloride 87 mmol/L (98-107); Potassium 3.7 mmol/L (3.5-5.1); Sodium 139 mmol/L (136-145)
[2018-11-04] MEDS: Bumetanide 1 MG/4 ML VIAL IVP SCH ×2 (06:46→14:59)
[2018-11-04] MEDS: Levothyroxine Sodium 75 MCG TAB PO SCH (06:46)
--- NOTE | 2018-11-04 06:49 | PDOC.CTH ---
Cardiology Progress Note - Subjective Much better today. Back to BL. - Objective Vital Signs Temp Pulse Resp BP Pulse Ox 11/04/18 03:47 98 F 95 16 97/54 L 11/03/18 23:38 98.2 F 96 16 98/56 L 93 L 11/03/18 20:00 95 11/03/18 19:27 98.1 F 111 H 16 123/60 95 Admit Weight 148 lb 14.4 oz Weight 145 lb 12.8 oz 11/02/18 11/03/18 11/04/18 06:59 06:59 06:59 Intake Total 780 1933 618 Output Total 5381 3899 4018 Balance -0668 -743 -0483 - Physical Examination General/Neuro: alert & oriented x3, NAD Neck: carotid US brisk, no JVD present Lungs: unlabored respirations Heart: PMI normal, RRR Abdomen: NT/ND Extremities: + edema B - Labs Result Diagrams: 10/27/18 05:02 11/04/18 05:01 Troponin/CKMB CK-MB (CK-2) 2.8 ng/mL (0-6.6) 10/26/18 12:10 Troponin I 0.041 ng/mL (< 0.028) H 10/26/18 19:35 - Assessment/Plan Cor pulmonale Severe pulmonary HTN Likely IGNACIO Tobacco abuse Non-compliance Rec 08/07 Pt weighing less than any previous hopsitalizations Stop dobutrex conitue lasix hold metolazone home today, tomorrow Needs OP sleep study Stop smoking Dr. araiza web production designer if questions arise; otherwise fu in office and needs fu with Dr. Cooley REC 11/03 2.4L removed from paracentesis Continue with bumex, zarozyln Fluid restrict Low Na OP sleep study Stop dobutrex tomorrow REC 11/02 paracentiesis today On zaroxylyn, bumex discussed op sleep study Stop smoking (still smoking 1 pk per day) REC11/01 Responded to bumex and dobutamine Add zaroxylyn Pt now with insurance coverage; Strongly recommend OP sleep study Still smoking Compliance has always been a concern
--- NOTE | 2018-11-04 08:14 | PDOC.FM ---
- Subjective Subjective: Pt feeling well this AM, reports she feels at baseline but understands she should not leave the hospital prematurely. No new complaints or concerns. - Objective Vital Signs & Weight: Vital Signs (12 hours) Temp Pulse Resp BP Pulse Ox 11/04/18 07:42 98.0 F 84 18 115/56 L 92 L 11/04/18 07:22 96 16 11/04/18 03:47 98 F 95 16 97/54 L 11/03/18 23:38 98.2 F 96 16 98/56 L 93 L Weight Admit Weight 67.54 kg Weight 66.134 kg I&O: 11/03/18 11/04/18 11/05/18 06:59 06:59 06:59 Intake Total 1933 618 Output Total 2297 7890 Balance -311 -5783 Result Diagrams: 10/27/18 05:02 11/04/18 05:01 Phys Exam - Physical Examination Constitutional: NAD HEENT: moist MMs, sclera anicteric Neck: no JVD, supple Respiratory: no wheezing minimal inspiratory crackles in bilat lung base Cardiovascular: RRR, no significant murmur Gastrointestinal: soft, non-tender Musculoskeletal: pulses present Neurological: non-focal, moves all 4 limbs Psychiatric: normal affect Skin: no rash, normal turgor Dx/Plan (1) Acute exacerbation of congestive heart failure Code(s): I50.9 - HEART FAILURE, UNSPECIFIED Status: Acute Qualifiers: Heart failure type: diastolic Qualified Code(s): I50.33 - Acute on chronic diastolic (congestive) heart failure (2) Acute on chronic respiratory failure with hypoxia Code(s): J96.21 - ACUTE AND CHRONIC RESPIRATORY FAILURE WITH HYPOXIA Status: Acute (3) Anasarca Code(s): R60.1 - GENERALIZED EDEMA Status: Acute (4) Diabetes type 2, controlled Code(s): E11.9 - TYPE 2 DIABETES MELLITUS WITHOUT COMPLICATIONS Status: Chronic Qualifiers: Diabetes mellitus shelter insulin use: without shelter use Diabetes mellitus complication status: without complication Qualified Code(s): E11.9 - Type 2 diabetes mellitus without complications (5) Hypertension Code(s): I10 - ESSENTIAL (PRIMARY) HYPERTENSION Status: Chronic Qualifiers: Hypertension type: essential hypertension Qualified Code(s): I10 - Essential (primary) hypertension - Plan Plan: Anasarca 2/2 cor pulmonale and dietary noncompliance A- diuresing well, s/p paracentesis pulling off 2.4L. respiratory status at baseline with 2L home O2 P- low sodium diet & fluid restriction - monitor I/Os, daily weights -continue bumex and metolazone -dobutamine DC today per cards Cor pulmonale 2/2 Elevated Pulm artery pressure A-TTE: elevated pulm art. pressure, enlarged right atrium P-continuous O2 for PH likely 2/2 chronic COPD COPD A- not in exacerbation P- duonebs -O2 as above ALICIA, resolved Elevated alk phos - 2/2 above, stable Elevated troponin - downtrended, no chest pain Diet: HH/fluid restriction Ppx: Lovenox
[2018-11-04] MEDS: Aspirin Chewable 81 MG TAB PO SCH (09:40)
[2018-11-04] MEDS: Enoxaparin Sodium 40 MG/0.4 ML SYRINGE SC SCH (09:40)
[2018-11-04] MEDS: Metolazone 2.5 MG TAB PO SCH (09:40)
--- NOTE | 2018-11-04 11:41 | PRG ---
DATE OF SERVICE: 11/04/2018 Ms. Scott continues to feel better. She appears also anxious to go home. She is demonstrating no respiratory distress and her dobutamine infusion has been stopped. From our standpoint, she is ready for discharge. We will check with Cardiology to get their final plan. Job ID: [id number]
--- NOTE | 2018-11-04 12:28 | RAD ---
PA AND LATERAL CHEST: HISTORY: Shortness of breath. COMPARISON: 12/16/2017 study. FINDINGS: Heart size is enlarged. Atherosclerotic changes are seen in the aorta. The lungs are clear of any i nfiltrative process. Some mild interstitial scarring present. IMPRESSION: Cardiomegaly with chronic lung change. No interval change since the prior exam. POS: T[facility]
[2018-11-04] MEDS: Ibuprofen 600 MG TAB PO PRN (20:17)
[2018-11-05] MEDS: Levothyroxine Sodium 75 MCG TAB PO SCH (05:58)
[2018-11-05] MEDS: Bumetanide 1 MG/4 ML VIAL IVP SCH (05:58)
[2018-11-05 06:27] LABS: BUN (Urea Nitrogen) 47 mg/dL (9.8-20.1); Calc. Creatinine Clearance 61 mL/min (70-130); Calcium 10.4 mg/dL (7.8-10.44); Estimated GFR-MDRD 65; Glucose 91 mg/dL (70-105)
[2018-11-05 06:36] LABS: Anion Gap 19 mmol/L (10-20); Carbon Dioxide 40 mmol/L (22-29); Chloride 84 mmol/L (98-107); Potassium 3.4 mmol/L (3.5-5.1); Sodium 140 mmol/L (136-145)
--- NOTE | 2018-11-05 07:07 | PDOC.FM ---
- Subjective Subjective: Pt rested well last night and continues to feel well and back to baseline. Wants to go home. no SOB no cough, no CP no palpitations - Objective Vital Signs & Weight: Vital Signs (12 hours) Temp Pulse Resp BP Pulse Ox 11/05/18 04:00 98.1 F 87 19 104/66 93 L 11/05/18 00:00 98.4 F 93 20 90/56 L 94 L 11/04/18 20:00 98.3 F 103 H 20 110/68 88 L Weight Admit Weight 67.54 kg Weight 65.363 kg I&O: 11/04/18 11/05/18 11/06/18 06:59 06:59 06:59 Intake Total 618 970 Output Total 4010 3050 Balance -2292 -1190 Result Diagrams: 10/27/18 05:02 11/05/18 05:34 Phys Exam - Physical Examination Constitutional: NAD HEENT: moist MMs, sclera anicteric Neck: no JVD, supple Respiratory: no wheezing, clear to auscultation bilateral Cardiovascular: RRR, no significant murmur Gastrointestinal: soft, non-tender Musculoskeletal: no edema Neurological: normal sensation, moves all 4 limbs Lymphatic: no nodes Psychiatric: normal affect, A&O x 3 Skin: no rash, normal turgor Dx/Plan (1) Acute exacerbation of congestive heart failure Code(s): I50.9 - HEART FAILURE, UNSPECIFIED Status: Acute Qualifiers: Heart failure type: diastolic Qualified Code(s): I50.33 - Acute on chronic diastolic (congestive) heart failure (2) Acute on chronic respiratory failure with hypoxia Code(s): J96.21 - ACUTE AND CHRONIC RESPIRATORY FAILURE WITH HYPOXIA Status: Acute (3) Anasarca Code(s): R60.1 - GENERALIZED EDEMA Status: Acute (4) Diabetes type 2, controlled Code(s): E11.9 - TYPE 2 DIABETES MELLITUS WITHOUT COMPLICATIONS Status: Chronic Qualifiers: Diabetes mellitus longwall foreman insulin use: without longwall foreman use Diabetes mellitus complication status: without complication Qualified Code(s): E11.9 - Type 2 diabetes mellitus without complications (5) Hypertension Code(s): I10 - ESSENTIAL (PRIMARY) HYPERTENSION Status: Chronic Qualifiers: Hypertension type: essential hypertension Qualified Code(s): I10 - Essential (primary) hypertension - Plan Plan: Anasarca 2/2 cor pulmonale and dietary noncompliance A- At baseline, weighing less than previous hospitalizations, no crackles or edema on exam, at baseline home O2 requirement, s/p paracentesis pulling off 2.4L. respiratory status at baseline with 2L home O2. Cards recs to DC today and send home with bumex, hold metolazone P- Continue bumex -hold metolazone -DC today Cor pulmonale 2/2 Elevated Pulm artery pressure A-TTE: elevated pulm art. pressure, enlarged right atrium P-continuous O2 for PH likely 2/2 chronic COPD COPD A- not in exacerbation P- duonebs -O2 as above ALICIA, resolved Elevated alk phos - 2/2 above, stable Elevated troponin - downtrended, no chest pain Dispo: DC today, pt now has insurance that will cover establishing at our clinic. Addendum - Attending - Attending Attestation Date/Time: 11/05/18 1925 I personally evaluated the patient at 0800 and discussed the management with Dr. Sutton I agree with the History, Examination, Assessment and Plan documented above with any addition or exceptions noted below. Cor [place] from Pulm HTN secondary to COPD Metabolic alkalosis- appears to have been overdiuresed. Metolazone d/c. Will give a dose of diamox and hold evening bumex dose. Repeat BMP in am. Hopefully discharge tomorrow if bicarb improved.
[2018-11-05] MEDS ORDERED: Potassium Chloride 20 MEQ TAB PO SCH (07:15)
[2018-11-05 07:48] VITALS: TEMP 98.3
[2018-11-05] MEDS: Enoxaparin Sodium 40 MG/0.4 ML SYRINGE SC SCH (08:21)
[2018-11-05] MEDS: Aspirin Chewable 81 MG TAB PO SCH (08:21)
[2018-11-05] MEDS: Metolazone 2.5 MG TAB PO SCH (08:22)
[2018-11-05 11:52] VITALS: BP 101/61
[2018-11-05] MEDS ORDERED: AcetaZOLAMIDE 250 MG TAB PO SCH ×2 (12:30→21:00)
--- NOTE | 2018-11-05 22:31 | DIS ---
DATE OF ADMISSION: 10/26/2018 DATE OF DISCHARGE: 11/05/2018 RESIDENT: Kaleb Sutton MD DISCHARGE ATTENDING: Dee Dee Arizmendi MD CONSULTS: 1. Cardiology, Oliver Rodriguez MD. 2. Physical Therapy. 3. Cardiovascular team. PROCEDURES: 1. On 10/26/2018 chest x-ray, impression, stable cardiomegaly with mild vascular congestion. No overt edema or confluent pneumonia. 2. On 11/02/2018, paracentesis, ultrasound. Successful paracentesis, drainage of 2.4 L of ascitic fluid, one bottle was sent to laboratory. 3. On 11/04/2018, chest x-ray, impression, cardiomegaly with chronic lung change. No interval change since prior exam. PRIMARY DIAGNOSIS: Anasarca secondary to cor pulmonale. SECONDARY DIAGNOSES: Chronic obstructive pulmonary disease, acute kidney injury, pulmonary hypertension. DISCHARGE MEDICATIONS: 1. Levothyroxine 75 mcg p.o. daily. 2. Albuterol sulfate 2 puffs inhaled q.6 hours p.r.n. 3. Mucinex 600 mg p.o. b.i.d. 4. DuoNeb nebulized q.i.d. p.r.n. 5. Aspirin 81 mg p.o. daily. 6. Bumex 2 mg p.o. b.i.d. 7. Senokot 2 tablets p.o. b.i.d. p.r.n. 8. Diamox 250 mg p.o. b.i.d. DISCONTINUED MEDICATIONS: 1. Spironolactone 25 mg p.o. daily. 2. Torsemide 20 mg p.o. daily. HISTORY OF PRESENT ILLNESS/HOSPITAL COURSE: This is a 58-year-old female, who presented with abdominal and lower extremity swelling and increased shortness of breath, was found to have fluid overload and anasarca secondary to cor pulmonale and so was admitted and diuresed. Cardiology was consulted and their recommendations were very much appreciated. The patient was diuresed with Bumex, metolazone, and was for sometime put on dobutamine drip. Additionally, the patient had paracentesis performed during hospitalization which yielded ascitic fluid and 2.4 L of this fluid. Eventually, dobutamine drip was weaned and patient diuresed a total of 11 L over hospital stay and left weighing less than on admission. The patient was deemed euvolemic and sent home, though this took quite some time. On the day of discharge, however, it should be noted that patient was noted to have elevated bicarb of 40, which had been the highest since admission. This was thought to be due to contraction alkalosis. However, considering it being the highest values since admission, the patient was encouraged to stay and plans were made for acetazolamide to begin with plans for discharge the next morning. The patient insisted that she leave that day and that she would take her acetazolamide at home and follow up in clinic. However, this was not recommended by our team. Medications were sent and patient left against medical advice, although she was instructed to call the clinic on Wednesday and followup that day. DISPOSITION: Stable. DISCHARGE INSTRUCTIONS: 1. Location: Home against medical advice. 2. Activity: As tolerated. 3. Diet: Healthy heart, fluid restriction diet, low-sodium diet. 4. Followup: Follow up with cardiac rehab in 7 days with [facility] on November 11 at [address] Salter in 7 days, with Dr. Rodriguez in 3 to 4 weeks, with Dr. Bhakta, and with [facility] on Wednesday, November 07, 2018. Job ID: [id number]
== END 2018-11-05 12:31 | disposition left against medical advice (07) | DRG 291 ==
LOC: ERS 11:57 → 2SW 13:27 → OBSVTOIN 13:27 → 2SE 10-28 16:13 → 2NO 10-28 16:50 → 2SE 10-28 16:53 → 2NO 10-28 17:00 → 2SE 10-28 17:01
PROVIDERS: ADMIT Family Medicine; ATTEND Family Medicine
PROC: 0W9G3ZX Drainage of Peritoneal Cavity, Percutaneous Approach, Diagnostic (ICD-10-PCS; principal; 2018-11-02)
DX: I11.0 Hypertensive heart disease with heart failure (principal); J96.21 Acute and chronic respiratory failure with hypoxia; N17.9 Acute kidney failure, unspecified; E87.3 Alkalosis; I27.81 Cor pulmonale (chronic); I50.33 Acute on chronic diastolic (congestive) heart failure; I50.811 Acute right heart failure; I27.23 Pulmonary hypertension due to lung diseases and hypoxia; F17.210 Nicotine dependence, cigarettes, uncomplicated; R60.1 Generalized edema; E11.9 Type 2 diabetes mellitus without complications; E89.0 Postprocedural hypothyroidism; J44.9 Chronic obstructive pulmonary disease, unspecified; R79.89 Other specified abnormal findings of blood chemistry; Z79.82 Long term (current) use of aspirin; Z79.52 Long term (current) use of systemic steroids; Z91.11 Patient's noncompliance with dietary regimen; Z79.899 Other long term (current) drug therapy; Z99.81 Dependence on supplemental oxygen
CPT/HCPCS: 36415; 49083; 71045; 71046; 80048; 80053; 82040; 82042; 82150; 82550; 82553; 82945; 83690; 83735; 83880; 84443; 84484; 85025; 85060; 85610; 85730; 87070; 87205; 89051; 93005; 93798; 94640; 94760; 96374; J1250; J1650; J1940; J3490; J7611; J7620; Q0162

== ENCOUNTER 2018-12-09 20:39 | Emergency (ER) | payer OTHER ==
[2018-12-09] MEDS ORDERED: Ketorolac Tromethamine 30 MG/ML VIAL ONE ×2 (21:10→21:12)
--- NOTE | 2018-12-09 21:21 | RAD ---
CHEST ONE VIEW: 12/09/18 COMPARISON: 10/26/18 and 11/04/18 HISTORY: Pain. FINDINGS: Enlarged cardiac silhouette. Atherosclerosis of the aortic knob. Costophrenic angles are clear. Chron ic changes, without consolidation or mass. No pneumothorax or osseous abnormalities. IMPRESSION: 1. Cardiomegaly. No acute cardiopulmonary process. 2. Atherosclerosis. POS: PPP
--- NOTE | 2018-12-09 21:22 | RAD ---
ONE VIEW PELVIS: 12/09/18 HISTORY: Pain. FINDINGS: Sacroiliac joints are patent and symmetric. Sacral ala are unremarkable. Contour of both femoral head are maintained and the hip joint spaces are symmetric. Intact bony pelvis. IMPRESSION: Unremarkable AP pelvic radiograph. POS: PPP
--- NOTE | 2018-12-09 21:24 | RAD ---
RIGHT HIP TWO VIEWS: 12/09/18 HISTORY: Pain. FINDINGS: Contour of the femoral head is maintained. The hip joint space is preserved. No fracture. IMPRESSION: No fracture. POS: PPP
--- NOTE | 2018-12-09 21:59 | CT ---
EXAM: CT scan cervical spineWithout contrast: HISTORY: Neck pain posterior neck without trauma COMPARISON: None FINDINGS: No evidence for acute fracture or facet dislocation. No significant malalignment. No prevertebral soft tissue swelling. Multilevel disc osteophytosis and facet arthrosis. Postop changes in the neck. Multiple right thyroid nodules up to 1.5 cm. IMPRESSION: No evidence for acute fracture or facet dislocation or other significant acute process. Multiple thyroid nodules on the right.
[2018-12-09] MEDS ORDERED: Diazepam 5 MG TAB ONE (22:06)
== END 2018-12-09 22:27 | disposition home or self-care (01) ==
LOC: ERS 20:39
DX: E04.2 Nontoxic multinodular goiter (principal); M54.5 Low back pain; M54.2 Cervicalgia; J44.9 Chronic obstructive pulmonary disease, unspecified; I11.0 Hypertensive heart disease with heart failure; I50.9 Heart failure, unspecified; E03.9 Hypothyroidism, unspecified; F17.210 Nicotine dependence, cigarettes, uncomplicated; Z79.82 Long term (current) use of aspirin; Z79.899 Other long term (current) drug therapy
CPT/HCPCS: 71045; 72125; 72170; 94760; 96372; J1885

== ENCOUNTER 2018-12-29 08:03 | Emergency (ER) | payer OTHER ==
[2018-12-29] MEDS ORDERED: Ibuprofen 200 MG TAB ONE (08:55)
--- NOTE | 2018-12-29 08:56 | RAD ---
3 views left wrist: 12/29/2018 COMPARISON: None HISTORY: Pain and swelling FINDINGS: The lateral examination demonstrates normal alignment. There is mild radiocarpal joint spac e narrowing. There is no displaced fracture or evidence of dislocation. Question soft tissue swelling along the dorsal aspect of the hand and wrist. If symptoms persist and the patient has a his tory of trauma, follow-up in 7-10 days suggested. IMPRESSION: Mild degenerative changes with no acute fracture or dislocation. Probable dorsal soft tis sancho swelling.
[2018-12-29 09:14] LABS: CRP (Inflammatory) 2.3 mg/dL (= or < 0.5); Uric Acid 15.9 mg/dL (2.6-6.0)
[2018-12-29 09:14] LABS: #Lymphocytes 1.2 thou/uL (1.20-3.40); #Monocytes 0.7 thou/uL (0.11-0.59); #Neutrophils 5.8 thou/uL (1.40-6.50); %Basophils 0.4 % (0.0-1.0); %Eosinophils 0.5 % (0.0-10.0); %Monocytes 8.5 % (0.0-10.0); %Neutrophils 75.6 % (42.0-75.0); Hemoglobin 13.1 g/dL (12.0-16.0); Mean Corpuscular HGB CONC 28.9 g/dL (32.0-36.0); Mean Corpuscular Hemoglobin 25.3 pg (27.0-31.0); Mean Corpuscular Volume 87.7 fL (78.0-98.0); Mean Platelet Volume 10.5 fL (7.4-10.4); Platelet Count 217 thou/uL (130-400); RBC Distribution Width 18.5 % (11.5-14.5); Red Blood Cell (RBC) Count 5.17 mill/uL (4.20-5.40); White Blood Cell (WBC) Count 7.7 thou/uL (4.8-10.8)
[2018-12-29 09:15] LABS: ALT (SGPT) 33 U/L (8-55); AST (SGOT) 35 U/L (5-34); Albumin 3.5 g/dL (3.5-5.0); Alkaline Phosphatase 228 U/L (40-150); Anion Gap 13 mmol/L (10-20); BUN (Urea Nitrogen) 33 mg/dL (9.8-20.1); Bilirubin, Total 0.9 mg/dL (0.2-1.2); Calc. Creatinine Clearance 0 mL/min (70-130); Calcium 9.2 mg/dL (7.8-10.44); Carbon Dioxide 31 mmol/L (22-29); Chloride 101 mmol/L (98-107); Estimated GFR-MDRD 77; Globulin 3.8 g/dL (2.4-3.5); Glucose 111 mg/dL (70-105); Potassium 3.4 mmol/L (3.5-5.1); Protein, Total 7.3 g/dL (6.0-8.3); Sodium 142 mmol/L (136-145)
[2018-12-29 10:01] LABS: MDiff Complete? YES; Polychromasia SLIGHT = 2-3 cells (100X) (0-2/hpf)
--- NOTE | 2018-12-29 13:04 | RAD ---
Portable frontal chest radiograph: 12/29/2018 COMPARISON: 12/09/2018 HISTORY: Left upper quadrant pain, swelling FINDINGS: The cardiac silhouette is enlarged suggesting magnification, cardiomegaly, and/or pericardi al effusion. There is pulmonary vascular congestion and perihilar interstitial prominence with interstitial promin ence in bilateral lung bases, right greater than left. IMPRESSION: Findings suspicious for interval development of pulmonary edema. No focal consolidation.
[2018-12-29] MEDS ORDERED: Bumetanide 1 MG TAB PO SCH (13:45)
== END 2018-12-29 14:32 | disposition left against medical advice (07) ==
LOC: ERS 08:03
DX: M10.9 Gout, unspecified (principal); I11.0 Hypertensive heart disease with heart failure; I50.9 Heart failure, unspecified; R60.0 Localized edema; F17.210 Nicotine dependence, cigarettes, uncomplicated; J44.9 Chronic obstructive pulmonary disease, unspecified; E03.9 Hypothyroidism, unspecified; Z79.82 Long term (current) use of aspirin; Z79.51 Long term (current) use of inhaled steroids; Z79.899 Other long term (current) drug therapy
CPT/HCPCS: 36415; 71045; 80053; 83880; 84484; 84550; 85025; 85652; 86140; 93005; 94640; J7620

== ENCOUNTER 2019-01-08 00:20 | Inpatient (IN) | payer OTHER ==
[2019-01-08 00:58] LABS: #Eosinphils 0.1 thou/uL (0.0-0.7); #Lymphocytes 1.6 thou/uL (1.20-3.40); #Monocytes 0.8 thou/uL (0.11-0.59); #Neutrophils 4.1 thou/uL (1.40-6.50); %Basophils 0.2 % (0.0-1.0); %Lymphocytes 24.4 % (21.0-51.0); %Monocytes 12.1 % (0.0-10.0); %Neutrophils 62.3 % (42.0-75.0); Hemoglobin 13.5 g/dL (12.0-16.0); Mean Corpuscular HGB CONC 30.1 g/dL (32.0-36.0); Mean Corpuscular Hemoglobin 26.2 pg (27.0-31.0); Mean Corpuscular Volume 87.1 fL (78.0-98.0); Mean Platelet Volume 10.3 fL (7.4-10.4); Platelet Count 269 thou/uL (130-400); RBC Distribution Width 18.7 % (11.5-14.5); Red Blood Cell (RBC) Count 5.15 mill/uL (4.20-5.40); White Blood Cell (WBC) Count 6.7 thou/uL (4.8-10.8)
[2019-01-08] MEDS ORDERED: Furosemide 40 MG/4 ML VIAL ONE (01:18)
[2019-01-08 01:20] LABS: ALT (SGPT) 25 U/L (8-55); AST (SGOT) 37 U/L (5-34); Albumin 3.2 g/dL (3.5-5.0); Alkaline Phosphatase 207 U/L (40-150); Anion Gap 14 mmol/L (10-20); BUN (Urea Nitrogen) 28 mg/dL (9.8-20.1); Bilirubin, Total 0.9 mg/dL (0.2-1.2); Calc. Creatinine Clearance 0 mL/min (70-130); Calcium 9.5 mg/dL (7.8-10.44); Carbon Dioxide 31 mmol/L (22-29); Chloride 101 mmol/L (98-107); Estimated GFR-MDRD 59; Globulin 4.3 g/dL (2.4-3.5); Glucose 97 mg/dL (70-105); Potassium 3.7 mmol/L (3.5-5.1); Protein, Total 7.5 g/dL (6.0-8.3); Sodium 142 mmol/L (136-145)
[2019-01-08 02:08] LABS: CKMB 3.5 ng/mL (0-6.6)
[2019-01-08] MEDS ORDERED: Ondansetron ODT 4 MG TAB SL PRN (03:43)
[2019-01-08] MEDS ORDERED: Ondansetron PF 4 MG/2 ML Vial IVP PRN (03:43)
[2019-01-08] MEDS ORDERED: Acetaminophen 325 MG TAB PO PRN (03:43)
[2019-01-08 04:40] VITALS: BMI 26.2
[2019-01-08] MEDS ORDERED: Senokot S 8.6-50 MG TAB PO PRN (04:46)
[2019-01-08] MEDS ORDERED: Bisacodyl 5 MG TAB PO PRN (04:46)
[2019-01-08] MEDS ORDERED: Polyethylene Glycol 3350 17 GM Packet PO PRN (04:47)
[2019-01-08] MEDS ORDERED: Cyclobenzaprine 10 MG TAB PO PRN (04:47)
--- NOTE | 2019-01-08 05:29 | HP ---
CHIEF COMPLAINT: Shortness of breath and lower extremity edema. HISTORY OF PRESENT ILLNESS: Patient is a 58-year-old female with a past medical history of COPD and cor pulmonale, who presents to the hospital with worsening shortness of breath and lower extremity edema. Patient states that she has been taking her Bumex as prescribed. However, it is unclear that she was prescribed indomethacin for her gout. This is per her. She stated that there was an interaction with her medications and for the past couple of days, she has had noticed a significant shortness of breath on exertion and also a significant lower extremity edema. She denies any chest pressure or chest pain, any nausea, vomiting, or diarrhea. PAST MEDICAL HISTORY: Patient's medical history is as of the following. She has a history of COPD and also has pulmonary hypertension with cor pulmonale, hypothyroidism, and hypertension. REVIEW OF SYSTEMS: All negative, except for the ones mentioned above in the HPI. PAST SURGICAL HISTORY: She has had a left breast cyst removed in addition to a thyroidectomy. FAMILY HISTORY: Sister has diabetes. ALLERGIES: NO KNOWN DRUG ALLERGIES. MEDICATIONS: She is currently on; 1. Aspirin 81 mg daily. 2. She is on Flexeril 10 mg t.i.d. p.r.n. 3. Bumex 2 mg b.i.d. 4. She is also on levothyroxine 75 mcg daily. 5. She is on MiraLAX 17 g one p.o. daily. SOCIAL HISTORY: She currently still continues to smoke about half a pack. Denies any alcohol use or drug use. She is a full code. Lives with her brother and she is currently also working. PHYSICAL EXAMINATION: VITAL SIGNS: Are as of the following; temperature of 98.3, heart rate of 96, 18 respirations, 93% on 3 L, and 107/59. GENERAL: She is awake, alert, and oriented x3. Does not appear in distress. HEENT: Normocephalic and atraumatic. No lymphadenopathy noted. She does have significant exophthalmos. Pupils are equal and reactive to light. CV: S1 and S2 present. No murmurs, rubs, or gallops. LUNGS: She has mild crackles at bilateral lower bases. ABDOMEN: Obese. Bowel sounds are present x2. She does have some fluid wave. EXTREMITIES: Lower extremities, significant for pitting edema all the way up to her thighs. SKIN: No cuts, lesions, or bruises noted. NEUROLOGIC: There are no focal deficits noted. LABORATORY RESULTS: As of the following. Sodium of 142, potassium 3.7, BUN of 28, and creatinine of 1.15. LFTs are mildly elevated. Her troponin was 0.032. Her BNP was 1057. Hematology; WBCs of 6.7, hemoglobin of 13.5, hematocrit of 44.8, and platelets of 269. She did have a chest x-ray which according to my interpretation showed some pulmonary vascular congestion and a very enlarged heart. ASSESSMENT AND PLAN: Patient is a 58-year-old female who presents to the hospital with complaints of shortness of breath and lower extremity edema. 1. Shortness of breath, most likely secondary to acute on chronic right-sided heart failure. She has significant severe tricuspid regurgitation and elevated pulmonary artery pressure. I will start her on some Lasix. I do not want to over-diurese her. I will do it once a day. She recently had an echocardiogram which was done in August 2018 which indicated an EF of 50% to 55%, severe enlargement of the right ventricular cavity, severe tricuspid regurgitation, and severe elevated pulmonary artery pressure. I will continue her Lasix. Continue her home medication. May consider getting consulting Cardiology. She has a little bit of cough. She does have some white phlegm. However, she has no fevers and no elevated white count. Per Cardiology's notes, last time there was a recommendation of outpatient sleep study and also recommended to quit smoking. However, patient continues to smoke. She also might require a paracentesis. Given her enlarged abdomen, I will order an ultrasound-guided paracentesis if needed. 2. Hypothyroidism. We will continue her medication. 3. Deep venous thrombosis prophylaxis. We will put the patient on some SCDs. Job ID: [id number]
[2019-01-08] MEDS: Levothyroxine Sodium 75 MCG TAB PO SCH (05:51)
[2019-01-08] MEDS ORDERED: Furosemide 40 MG/4 ML VIAL SLOW IVP SCH ×2 (06:00→09:00)
--- NOTE | 2019-01-08 07:40 | RAD ---
CHEST 1 VIEW: Date: 01/08/19 INDICATION: Shortness of breath and fluid retention. COMPARISON: Prior exam dated 12/29/18. FINDINGS: There is marked cardiomegaly and mild pulmonary vascular congestion. There is interstitial prominence likely related to some underlying mild interstitial edema. No definite pleural effusion or pneumotho rax is evident. IMPRESSION: Mild cardiomegaly and pulmonary vascular congestion. POS: BH
[2019-01-08] MEDS ORDERED: Metolazone 2.5 MG TAB PO SCH (08:30)
[2019-01-08] MEDS: Furosemide 40 MG/4 ML VIAL SLOW IVP SCH (09:19)
[2019-01-08] MEDS: Heparin 5,000 UNITS/ML VIAL SC SCH ×3 (09:19→20:11)
[2019-01-08] MEDS: Aspirin Chewable 81 MG TAB PO SCH (09:19)
--- NOTE | 2019-01-08 12:02 | PDOC.HOSPP ---
- Subjective Subjective: sob is slightly better, no chest pain or palp says she always sleeps with head end of her bed elevated - Objective Vital Signs & Weight: Vital Signs (12 hours) Temp Pulse Resp BP Pulse Ox 01/08/19 07:53 98.5 F 97 18 109/67 97 01/08/19 07:30 95 01/08/19 06:40 90 L 01/08/19 06:38 90 18 90 L 01/08/19 04:37 18 93 L 01/08/19 03:25 98.3 F 96 24 H 107/59 L 100 Weight Weight 162 lb 1.6 oz I&O: 01/07/19 01/08/19 01/09/19 06:59 06:59 06:59 Intake Total 200 Balance 200 Result Diagrams: 01/08/19 00:39 01/08/19 00:39 ROS - Review of Systems All systems: All other ROS were reviewed and found negative. - Medication Medications: Active Medications Generic Name Dose Route Start Last Admin Trade Name Freq PRN Reason Stop Dose Admin Albuterol/Ipratropium 3 ml 01/08/19 07:00 01/08/19 06:38 Duoneb NEB 3 ml [id number] FEROZ Administration Aspirin 81 mg 01/08/19 09:00 01/08/19 09:19 Aspirin Chewable PO 81 mg DAILY FEROZ Administration Furosemide 40 mg 01/08/19 09:00 01/08/19 09:19 Lasix SLOW IVP 40 mg DAILY FEROZ Administration Heparin Sodium (Porcine) 5,000 units 01/08/19 09:00 01/08/19 09:19 Heparin SC 5,000 units TID FEROZ Administration Levothyroxine Sodium 75 mcg 01/08/19 06:00 01/08/19 05:51 Synthroid PO 75 mcg 0600 FEROZ Administration - Exam NAD, awake alert Eye: PERRL, anicteric sclera ENT: no oropharyngeal lesions, moist mucosa Neck: supple, JVD Heart: RRR, no murmur Respiratory: CTAB, rales Gastrointestinal: soft, non-tender, normal bowel sounds Extremities: no cyanosis, 1+ LE edema Neurological: CN's grossly intact, no focal deficits Psychiatric: normal affect, A&O x 3 Hosp A/P (1) Acute exacerbation of congestive heart failure Code(s): I50.9 - HEART FAILURE, UNSPECIFIED Status: Acute Qualifiers: Heart failure type: diastolic Qualified Code(s): I50.33 - Acute on chronic diastolic (congestive) heart failure (2) Anasarca Code(s): R60.1 - GENERALIZED EDEMA Status: Acute (3) Cor pulmonale (chronic) Code(s): I27.81 - COR PULMONALE (CHRONIC) Status: Chronic (4) COPD (chronic obstructive pulmonary disease) Status: Chronic Qualifiers: COPD type: chronic bronchitis (5) Diabetes type 2, controlled Code(s): E11.9 - TYPE 2 DIABETES MELLITUS WITHOUT COMPLICATIONS Status: Chronic Qualifiers: Diabetes mellitus watermelon inspector insulin use: without watermelon inspector use Diabetes mellitus complication status: without complication Qualified Code(s): E11.9 - Type 2 diabetes mellitus without complications (6) Hypertension Code(s): I10 - ESSENTIAL (PRIMARY) HYPERTENSION Status: Chronic Qualifiers: Hypertension type: essential hypertension Qualified Code(s): I10 - Essential (primary) hypertension (7) Hypothyroidism Code(s): E03.9 - HYPOTHYROIDISM, UNSPECIFIED Status: Chronic Qualifiers: Hypothyroidism type: acquired Qualified Code(s): E03.9 - Hypothyroidism, unspecified (8) Pulmonary hypertension Code(s): I27.20 - PULMONARY HYPERTENSION, UNSPECIFIED Status: Chronic (9) Severe tricuspid regurgitation Code(s): I07.1 - RHEUMATIC TRICUSPID INSUFFICIENCY Status: Chronic (10) Tobacco abuse Code(s): Z72.0 - TOBACCO USE Status: Chronic - Plan is on lasix, nebs, aspirin, synthroid will get paracentesis tomorrow consult in am hemostable to ambulate as tolerated
[2019-01-09] MEDS: Levothyroxine Sodium 75 MCG TAB PO SCH (05:37)
[2019-01-09 05:52] LABS: #Basophils 0.1 thou/uL (0.0-0.2); #Eosinphils 0.1 thou/uL (0.0-0.7); #Lymphocytes 1.3 thou/uL (1.20-3.40); #Monocytes 0.8 thou/uL (0.11-0.59); #Neutrophils 5.9 thou/uL (1.40-6.50); %Basophils 0.6 % (0.0-1.0); %Lymphocytes 15.6 % (21.0-51.0); %Neutrophils 72.8 % (42.0-75.0); Hemoglobin 12.8 g/dL (12.0-16.0); Mean Corpuscular HGB CONC 28.2 g/dL (32.0-36.0); Mean Corpuscular Hemoglobin 25.3 pg (27.0-31.0); Mean Corpuscular Volume 89.5 fL (78.0-98.0); Mean Platelet Volume 10.6 fL (7.4-10.4); Platelet Count 266 thou/uL (130-400); RBC Distribution Width 18.4 % (11.5-14.5); Red Blood Cell (RBC) Count 5.08 mill/uL (4.20-5.40); White Blood Cell (WBC) Count 8.1 thou/uL (4.8-10.8)
[2019-01-09 06:11] LABS: ALT (SGPT) 20 U/L (8-55); AST (SGOT) 29 U/L (5-34); Albumin 3.1 g/dL (3.5-5.0); Alkaline Phosphatase 194 U/L (40-150); Anion Gap 13 mmol/L (10-20); BUN (Urea Nitrogen) 26 mg/dL (9.8-20.1); Bilirubin, Total 0.8 mg/dL (0.2-1.2); Calc. Creatinine Clearance 92 mL/min (70-130); Calcium 9.5 mg/dL (7.8-10.44); Carbon Dioxide 31 mmol/L (22-29); Chloride 102 mmol/L (98-107); Estimated GFR-MDRD Greater than 90; Glucose 95 mg/dL (70-105); Potassium 3.8 mmol/L (3.5-5.1); Protein, Total 7.1 g/dL (6.0-8.3); Sodium 142 mmol/L (136-145)
[2019-01-09] MEDS: Heparin 5,000 UNITS/ML VIAL SC SCH ×3 (10:18→20:21)
--- NOTE | 2019-01-09 10:27 | PDOC.HOSPP ---
- Subjective Subjective: Ms. Scott was seen today in follow-up of Right heart failure and Cor Pulmonale. She was not very talkative, and actually asked me to leave the room once. I informed her that I could not help her if I left. She will not answer any questions, but I noted she is coughing. Otherwise she appear chronically ill , but not in any distress. - Objective Vital Signs & Weight: Vital Signs (12 hours) Temp Pulse Resp BP Pulse Ox 01/09/19 07:51 98.0 F 91 16 110/67 93 L 01/09/19 07:11 98 16 92 L 01/09/19 03:08 98.1 F 93 20 101/60 92 L 01/09/19 00:24 16 90 L Weight Weight 158 lb 11.2 oz I&O: 01/08/19 01/09/19 01/10/19 06:59 06:59 06:59 Intake Total 200 1170 Output Total 2140 Balance 200 -970 Result Diagrams: 01/09/19 05:07 01/09/19 05:07 ROS - Review of Systems All systems: All other ROS were reviewed and found negative. - Medication Medications: Active Medications Generic Name Dose Route Start Last Admin Trade Name Freq PRN Reason Stop Dose Admin Albuterol/Ipratropium 3 ml 01/08/19 07:00 01/09/19 07:11 Duoneb NEB 3 ml [id number] FEROZ Administration Aspirin 81 mg 01/08/19 09:00 01/08/19 09:19 Aspirin Chewable PO 81 mg DAILY FEROZ Administration Cyclobenzaprine HCl 10 mg 01/08/19 04:47 01/08/19 15:12 Flexeril PO 10 mg TID PRN Administration spasms Furosemide 40 mg 01/08/19 09:00 01/08/19 09:19 Lasix SLOW IVP 40 mg DAILY FEROZ Administration Heparin Sodium (Porcine) 5,000 units 01/08/19 09:00 01/09/19 10:18 Heparin SC Not Given TID FEROZ Levothyroxine Sodium 75 mcg 01/08/19 06:00 01/09/19 05:37 Synthroid PO 75 mcg 0600 FEROZ Administration Senna/Docusate Sodium 2 tab 01/08/19 04:46 01/08/19 15:12 Senokot S PO 2 tab BID PRN Administration Constipation - Exam Eye: PERRL, anicteric sclera Heart: RRR, no murmur, no gallops, no rubs, normal peripheral pulses Respiratory: rales (+ rales at the left base) Gastrointestinal: soft, non-tender, distended (+ flank dullness) Extremities: no cyanosis, no clubbing, 1+ LE edema (1-2+ pitting edema in both lower extremities) Hosp A/P (1) Right-sided congestive heart failure Code(s): I50.810 - RIGHT HEART FAILURE, UNSPECIFIED Status: Acute (2) Anasarca Code(s): R60.1 - GENERALIZED EDEMA Status: Acute (3) Cor pulmonale Code(s): I27.81 - COR PULMONALE (CHRONIC) Status: Chronic - Plan * Cor Pulmonale with right heart failure- continue diuresing * Ascites- will plan for a therapeutic paracentesis, and will check a cell count * She may also have a superimprosed infection- will continue to monitor, if the cough continues after diuring some more then will consider placing her on antibiotics. * Otherwise it is difficult to assess her if she will not offer any additional information- hopefuly she will be a bit more cooperative later.
[2019-01-09] MEDS: Aspirin Chewable 81 MG TAB PO SCH (10:39)
[2019-01-09] MEDS: Furosemide 40 MG/4 ML VIAL SLOW IVP SCH (10:39)
--- NOTE | 2019-01-09 10:54 | CON ---
DATE OF CONSULTATION: REASON FOR CONSULTATION: Right-sided failure. HISTORY OF PRESENT ILLNESS: Ms. Scott is an unfortunate 58-year-old woman, who was seen and evaluated in the past. She has severe right ventricular dysfunction with right-sided failure. She has severe wide-open TR and severe pulmonary hypertension. She presents with increased abdominal distention from right-sided failure. During my visit, she is fairly somnolent. She does awaken to voice. The notes were reviewed. It appears that she ran out of her medications. Unfortunately, this has been her current issue. She has also not been tested for obstructive sleep apnea, which is likely causing part of her issue. She also continues to smoke. PAST MEDICAL HISTORY: 1. COPD. 2. Likely obstructive sleep apnea. 3. Right-sided failure. 4. Hypertension. 5. Left breast cyst removal. ALLERGIES: NONE. MEDICATIONS: Include Bumex, levothyroxine, MiraLAX, Flexeril, aspirin. SOCIAL HISTORY: Positive for tobacco use. REVIEW OF SYSTEMS: A 10-point review of systems is difficult to obtain. She is currently somnolent. PHYSICAL EXAMINATION: VITAL SIGNS: Blood pressure 110/67, pulse 91, temperature 98. GENERAL: Patient is a pleasant 58-year-old woman, who is in no acute distress. The patient appears their stated age. NEUROLOGIC: The patient is alert and oriented x3 with no focal neurologic deficits. HEENT: Sclerae without icterus. Mouth has moist mucous membranes with normal pallor. NECK: No JVD. Carotid upstroke brisk. No bruits bilaterally. LUNGS: Clear to auscultation with unlabored respirations. BACK: No scoliosis or kyphosis. CARDIAC: Regular rate and rhythm with normal S1 and S2. No S3 or S4 noted. No significant rubs, murmurs, thrills, or gallops noted throughout the precordium. PMI is not displaced. There is no parasternal heave. ABDOMEN: Soft, nontender, nondistended. No peritoneal signs present. No hepatosplenomegaly. No abnormal striae. EXTREMITIES: 2+ femoral and 2+ dorsalis pedis pulses. No cyanosis, clubbing, or edema. SKIN: No gross abnormalities. PERTINENT LABORATORY DATA: Hemoglobin 12.8, hematocrit 45.4, white blood cell count 8.1, platelet count 266. IMPRESSION: 1. Right-sided failure. 2. Noncompliance. 3. Tobacco abuse. RECOMMENDATIONS: Ms. Scott has had multiple hospitalizations over the last several years for similar issues. Recommend to continue IV Lasix. Consider paracentesis. Unfortunately, this is going to be a continued issue with Ms. Scott. I have strongly recommended that she will undergo a sleep study, but has not followed through. Dr. Salter has been consulted. Otherwise, from my standpoint, I have no further recommendations then. Job ID: [id number]
[2019-01-09 11:11] LABS: INR-International Normal Ratio 1.2; PTT 30.9 SEC (22.9-36.1); Prothrombin Time 14.8 SEC (12.0-14.7)
[2019-01-09] MEDS ORDERED: Sodium Bicarbonate 2.5 MEQ/5 ML VIAL ONE (11:28)
[2019-01-09 14:38] LABS: BF Color Yellow; Body Fluid Source Ascites Body Fluid; Clarity Hazy (Clear)
[2019-01-09 14:39] LABS: BF RBC Count - Manual 1750 /cumm; RBC Background Count 0.001; Tube # EDTA; WBC/NonHematic-Auto 251 /cumm
[2019-01-09 15:10] LABS: BF Segmented Neutrophils 8 %; Cell Count Non Hematic 67 %; Lymphocytes 23 %
[2019-01-09] MEDS: Acetaminophen 325 MG TAB PO PRN (16:29)
--- NOTE | 2019-01-10 03:24 | CON ---
DATE OF CONSULTATION: 01/09/2019 HISTORY OF PRESENT ILLNESS: Ms. Scott is a 58-year-old female who reportedly has severe obstructive pulmonary disease. She was admitted with abdominal swelling. She has undergone a paracentesis. We were consulted. PAST MEDICAL HISTORY: Remarkable for: 1. Reportedly pulmonary hypertension. 2. She has a history of patent ductus arteriosus, apparently was identified in 1997. She did not volunteer this information and actually was fairly evasive when I asked her about this, but I did find this reviewing old dictations in this hospital. 3. History of diabetes. 4. History of hypothyroidism. 5. History of hypertension. 6. History of thyroidectomy in the past. 7. History of pulmonary function test done in 2017 showing a severe obstructive defect. 8. History of nuclear perfusion study done back in 2017 that showed no thromboembolic disease. 9. History of a transesophageal echo showing ejection fraction of 50% to 55%. That echocardiogram did not identify a patent ductus. 10. History of respiratory failure in May of 2017 requiring intubation after she fell BiPAP. FAMILY HISTORY: Negative for lung disease in early age. SOCIAL HISTORY: Not obtained. REVIEW OF SYSTEMS: 10-point review of systems completed, otherwise negative. PHYSICAL EXAMINATION: GENERAL: Ms. Scott is a 58-year-old female who reportedly has severe obstructive pulmonary disease. VITAL SIGNS: Blood pressure is 110/66. She is afebrile. Heart rates in the 90s, respiratory rates in the teens, oximetry is 94 on 2 L. HEENT: Pupils are equal. Sclerae anicteric. NECK: Supple. No lymphadenopathy. LUNGS: Distant, clear. HEART: Regular rhythm. S1 and S2 are normal. ABDOMEN: Distended. EXTREMITIES: Without clubbing or cyanosis. She has 1 to 2+ pedal edema. LABORATORY DATA: White count 8.1, hemoglobin 12.8, platelets 266. Sodium 142, potassium 3.8, chloride 102, bicarb 31, BUN 26, creatinine 0.78, alkaline phosphatase 194, AST and ALT are normal. Bilirubin was normal. IMPRESSION: 1. Pulmonary hypertension. 2. Question of patent ductus arteriosus, seen apparently on one echo in the past , but not on the transesophageal echo here in 2017. 3. Chronic obstructive pulmonary disease. 4. Volume overload, chronic right heart failure. 5. Renal insufficiency yesterday with improved creatinine 0.78. It will be interesting to see what her creatinine does after paracentesis. Chest radiograph did not show any alveolar infiltrates or mass lesions. We will continue to follow the other physicians caring for. I have no new suggestions for her care. I would continue with her current nebulizer treatments. Her chronic obstructive pulmonary disease appears to be stable. This is a 50 minute consult, with greater than 50% of time spent on unit coordinating care. Job ID: [id number] MTDD
[2019-01-10] MEDS: Levothyroxine Sodium 75 MCG TAB PO SCH (05:36)
[2019-01-10] MEDS: Acetaminophen 325 MG TAB PO PRN ×2 (05:37→08:41)
[2019-01-10 05:49] LABS: Anion Gap 13 mmol/L (10-20); BUN (Urea Nitrogen) 23 mg/dL (9.8-20.1); Calc. Creatinine Clearance 95 mL/min (70-130); Calcium 9.4 mg/dL (7.8-10.44); Carbon Dioxide 31 mmol/L (22-29); Chloride 99 mmol/L (98-107); Estimated GFR-MDRD Greater than 90; Glucose 96 mg/dL (70-105); Potassium 3.8 mmol/L (3.5-5.1); Sodium 139 mmol/L (136-145)
--- NOTE | 2019-01-10 07:25 | ULT ---
PREPROCEDURE DIAGNOSIS: Ascites POST PROCEDURE DIAGNOSIS: Same PROCEDURE: Ultrasound-guided paracentesis SHINGLES ROOFER: Johanna ANESTHESIA: 6 mL of buffered 1% lidocaine. SPECIMEN: 1.8 L of straw-colored fluid TECHNIQUE: Prior to the procedure, the risks and benefits of an ultrasound guided paracentesis were explained to the patient which consented fully to the procedure. The area of the largest fluid collection was seen in the right lower quadrant of the abdomen. This a dolly was prepped and draped in the usual sterile fashion. Lidocaine was used to anesthetize the skin and soft tissues down towards the peritoneal cavity. The p eritoneum was anesthetized. A small skin incision was made for passage of the Bacterioscaneh needle and catheter. This device was then placed using ultrasound guidance into the peritoneal cavity. The needle was removed after return of fluid. The catheter was then connected to multiple Vacutainer bottles. The Vacutainer bottles were sent to pathology for diagnostic purposes. A total of 1.8 L was removed. No residual fluid is seen in this region of the peritoneal cavity. IMPRESSION: Status post successful ultrasound-guided paracentesis Transcribed Date/Time: 01/10/2019 7:24 AM
[2019-01-10] MEDS: Aspirin Chewable 81 MG TAB PO SCH (08:41)
[2019-01-10] MEDS: Heparin 5,000 UNITS/ML VIAL SC SCH ×2 (08:41→16:17)
[2019-01-10] MEDS: Furosemide 40 MG/4 ML VIAL SLOW IVP SCH (09:09)
--- NOTE | 2019-01-10 12:05 | PQF ---
DATE: 01-10-19 ATTN: DR. VITA ANDRES Please exercise your independent, professional judgment in responding to the clarification form. Clinical indicators are provided on the bottom of this form for your review Please check appropriate box(s): [ X ] Acute Renal Failure (ARF) / Acute Kidney Injury (ALICIA) [ ] Insignificant Lab Values [ ] Other diagnosis [ ] Unable to determine In addition, please specify: Present on Admission (POA): [X ] Yes [ ] No [ ] Unable to determine National Kidney Foundation Guidelines for CKD Staging Stage I Kidney damage with normal or increased GFR GFR > 90 Stage II Kidney damage with mildly decreased GFR GFR 60-89 Stage III Kidney damage with moderately decreased GFR GFR 30-59 Stage IV Kidney damage with severely decreased GFR GFR 16-29 Stage V Kidney failure GFR<15 ESRD End Stage Renal Disease On dialysis Acute Renal Failure/Acute Kidney Failure defined as: Increases in SCr by (>) 0.3 mg/dl within 48 hours OR- Increases in SCr by (>) 1.5 times baseline, known or presumed to have occurred within the prior 7 days OR- Urine volume < 0.5 ml/kg/hour for 6 hours (KDIGO supplement 2012 for RIFLE/MELIA criteria) For continuity of documentation, please document condition throughout progress notes and discharge summary. Thank You. CLINICAL INDICATORS - SIGNS / SYMPTOMS / LABS: GFR: 01-08-19: 59 01-09-19: 90 01-10-19: 90 CREATININE: 01-08-19: 1.15 01-09-19: 0.78 01-10-19: 0.76 BUN: 01-08-19: 28 01-09-19: 26 01-10-19: 23 BP: 01-10-19: 91/54, 97/[address] MCCOY 01-09-19: RENAL INSUFFICIENCY RISK FACTORS: ER: SOB ONSET AND FLUID RETENTION, PT STATES WATER PILLS, PT REPORTS SHE WEARS 2L AT HOME. H&P: HOME MEDS: ASA, BUMEX, FLEXERIL TREATMENTS: MAR: 01-08-19: LASIX IVF MONITORING LABS (This form is maintained as a part of the permanent medical record) 2014 [employer], [employer]. All Rights Reserved AMADO [email or web address] Office: [phone] [facility]
--- NOTE | 2019-01-10 13:31 | PDOC.HOSPP ---
- Subjective Subjective: Ms. Scott was seen today in follow-up of Cor Pulmonale. She is feeling a bit better today. She admits to a cough which is productive of yellow sputum. She says she is breathing better today. - Objective Vital Signs & Weight: Vital Signs (12 hours) Temp Pulse Resp BP BP Pulse Ox 01/10/19 12:30 98 01/10/19 11:33 97.6 F 88 14 101/59 L 88 L 01/10/19 08:37 97.7 F 84 16 97/59 L 96 01/10/19 07:07 88 16 93 L 01/10/19 04:00 98.7 F 85 16 97/57 L 01/10/19 02:43 88 L Weight Weight 161 lb I&O: 01/09/19 01/10/19 01/11/19 06:59 06:59 06:59 Intake Total 1170 1020 Output Total 2140 850 Balance -970 170 Result Diagrams: 01/09/19 05:07 01/10/19 04:53 ROS - Review of Systems All systems: All other ROS were reviewed and found negative. - Medication Medications: Active Medications Generic Name Dose Route Start Last Admin Trade Name Freq PRN Reason Stop Dose Admin Acetaminophen 650 mg 01/08/19 04:46 01/10/19 08:41 Tylenol PO 650 mg Q4H PRN Administration Headache/Fever/Mild Pain (1-3) Albuterol/Ipratropium 3 ml 01/08/19 07:00 01/10/19 07:07 Duoneb NEB 3 ml [id number] FEROZ Administration Aspirin 81 mg 01/08/19 09:00 01/10/19 08:41 Aspirin Chewable PO 81 mg DAILY FEROZ Administration Cyclobenzaprine HCl 10 mg 01/08/19 04:47 01/08/19 15:12 Flexeril PO 10 mg TID PRN Administration spasms Furosemide 40 mg 01/08/19 09:00 01/10/19 09:09 Lasix SLOW IVP Not Given DAILY FEROZ Heparin Sodium (Porcine) 5,000 units 01/08/19 09:00 01/10/19 08:41 Heparin SC 5,000 units TID FEROZ Administration Levothyroxine Sodium 75 mcg 01/08/19 06:00 01/10/19 05:36 Synthroid PO 75 mcg 0600 FEROZ Administration Senna/Docusate Sodium 2 tab 01/08/19 04:46 01/08/19 15:12 Senokot S PO 2 tab BID PRN Administration Constipation - Exam Eye: PERRL, anicteric sclera Heart: RRR, no murmur, no gallops, no rubs Respiratory: no wheezes, no ronchi, rales (+ rales in the left base) Gastrointestinal: soft, non-tender, non-distended, normal bowel sounds, no palpable masses, no hepatomegaly, no splenomegaly Extremities: no edema Hosp A/P (1) Right-sided congestive heart failure Code(s): I50.810 - RIGHT HEART FAILURE, UNSPECIFIED Status: Acute (2) Anasarca Code(s): R60.1 - GENERALIZED EDEMA Status: Acute (3) Cor pulmonale Code(s): I27.81 - COR PULMONALE (CHRONIC) Status: Chronic - Plan * Cor Pulmonale- improved * She may have some degree of bronchitis or even early pneumonia- will add Azithromycin * She is stable for discharge home
--- NOTE | 2019-01-10 14:14 | PRG ---
DATE OF SERVICE: 01/10/2019 SUBJECTIVE: Ms. Scott's status was unchanged. She appears weak. OBJECTIVE: VITAL SIGNS: Weight 161, +170 I's and O's over the last 24 hours. Blood pressure 101/59, pulse 88, and temperature 97.6. LUNGS: Minimal crackles noted bilaterally. HEART: Regular rate and rhythm. ABDOMEN: Protuberant. EXTREMITIES: 3+ pitting edema. PERTINENT LABORATORY DATA: Hemoglobin 12.8. Creatinine 0.76. BNP of 1067. IMPRESSION: 1. Right-sided failure. 2. Chronic obstructive pulmonary disease. 3. Noncompliance. 4. Tobacco abuse. 5. Likely obstructive sleep apnea. RECOMMENDATIONS: Unfortunately without significant help from Ms. Scott, she likely will continue to be readmitted. She has had issues with noncompliance in the past. She continues to smoke. She has not had her sleep study performed as scheduled. At this point, we will treat medically. Continue with Lasix if her blood pressure tolerates. We will need assistance at home to try and avoid readmissions. Otherwise, I have no further long-term recommendations. Job ID: [id number]
--- NOTE | 2019-01-10 18:02 | PRG ---
DATE OF SERVICE: 01/10/2019 SERVICE: Pulmonary Medicine. INTERVAL HISTORY: The patient indicates her lower extremity swelling and breathing have much improved. She denies any current chest pain or fevers. There were no overnight events. Overall, she feels like she is clearly moving in the right direction. She attributes her swelling and decompensation to initiation of indomethacin for some gout. PHYSICAL EXAMINATION: VITAL SIGNS: Afebrile, pulse 87, blood pressure is 95/58, respirations 15, saturation 91% on 2 L nasal cannula. GENERAL: The patient is awake and alert, in no apparent distress. LUNGS: Very good air entry. Dependent crackles are present. No prolonged expiratory phase or wheezing is appreciated. HEART: Normal rate and regular. ABDOMEN: Soft, nontender, and nondistended. Bowel sounds are positive. MUSCULOSKELETAL: No cyanosis or clubbing. There is 2 to 3+ pitting in the bilateral lower extremities, which looks like she has had significant reduction in swelling already. LABORATORY DATA: Creatinine 0.76. Basic metabolic profile is otherwise unremarkable. Bicarb 31. ASSESSMENT: 1. Acute on chronic hypoxic respiratory failure, improving. 2. Chronic hypercapnic respiratory failure. 3. Chronic obstructive pulmonary disease, severe, without current exacerbation. 4. Pulmonary hypertension with cor pulmonale. 5. Volume overload state, exacerbated by indomethacin use recently. 6. Acute kidney injury, resolved. DISCUSSION AND PLAN: The patient is doing fine from respiratory standpoint. We will continue to diurese her through time. Once she returns to euvolemia, she will be stable for discharge home. Multiple attempts have been made to set the patient up for pulmonary hypertension evaluation in the outpatient setting in a pulmonary hypertension center, but the patient has been unable to do so. I do think she would benefit from a formal study to see whether or not she would benefit from pulmonary vasodilators. Job ID: [id number]
[2019-01-10 20:22] VITALS: BP 136/79; TEMP 97.7
--- NOTE | 2019-01-13 16:07 | EKG ---
Test Reason : Blood Pressure : / mmHG Vent. Rate : 095 BPM Atrial Rate : 095 BPM P-R Int : 174 ms QRS Dur : 080 ms QT Int : 382 ms P-R-T Axes : 059 160 037 degrees QTc Int : 480 ms Normal sinus rhythm Biatrial enlargement Right axis deviation Pulmonary disease pattern Right ventricular hypertrophy Inferior infarct , age undetermined Abnormal ECG Confirmed by FLASH FELIPE M.D. ([id number]), publishing editor DOC KOO ([id number]) on 01/13/2019 2:59:50 PM Referred By: Confirmed By:FLASH FELIPE M.D.
== END 2019-01-10 20:20 | disposition home or self-care (01) | DRG 291 ==
LOC: ERS 00:20 → 2NO 03:19
PROVIDERS: ADMIT Internal Medicine; ATTEND Internal Medicine
PROC: 0W9G3ZZ Drainage of Peritoneal Cavity, Percutaneous Approach (ICD-10-PCS; principal; 2019-01-09)
DX: I11.0 Hypertensive heart disease with heart failure (principal); J96.21 Acute and chronic respiratory failure with hypoxia; R18.8 Other ascites; J96.12 Chronic respiratory failure with hypercapnia; N17.9 Acute kidney failure, unspecified; I50.813 Acute on chronic right heart failure; I27.81 Cor pulmonale (chronic); I07.1 Rheumatic tricuspid insufficiency; E03.9 Hypothyroidism, unspecified; F17.210 Nicotine dependence, cigarettes, uncomplicated; E11.9 Type 2 diabetes mellitus without complications; J44.9 Chronic obstructive pulmonary disease, unspecified; I27.29 Other secondary pulmonary hypertension; Z90.89 Acquired absence of other organs; Z79.82 Long term (current) use of aspirin; Z91.19 Patient's noncompliance with other medical treatment and regimen
CPT/HCPCS: 36415; 49083; 71045; 80048; 80053; 82042; 82553; 83880; 84484; 85025; 85060; 85610; 85730; 89051; 93005; 93798; 94640; 96374; J1644; J1940; J7620

== ENCOUNTER 2019-02-09 17:06 | Inpatient (IN) | payer OTHER ==
[2019-02-09 17:56] LABS: #Monocytes 0.6 thou/uL (0.11-0.59); %Basophils 0.2 % (0.0-1.0); %Eosinophils 0.2 % (0.0-10.0); %Lymphocytes 8.8 % (21.0-51.0); %Monocytes 5.3 % (0.0-10.0); %Neutrophils 85.5 % (42.0-75.0); Mean Corpuscular HGB CONC 30.2 g/dL (32.0-36.0); Mean Corpuscular Hemoglobin 26.4 pg (27.0-31.0); Mean Corpuscular Volume 87.3 fL (78.0-98.0); Mean Platelet Volume 10.7 fL (7.4-10.4); Platelet Count 252 thou/uL (130-400); RBC Distribution Width 18.2 % (11.5-14.5); White Blood Cell (WBC) Count 11.7 thou/uL (4.8-10.8)
[2019-02-09] MEDS ORDERED: Ondansetron PF 4 MG/2 ML Vial ONE (18:08)
[2019-02-09] MEDS ORDERED: Morphine 4 MG/ML VIAL ONE (18:08)
[2019-02-09 18:16] LABS: ALT (SGPT) 20 U/L (8-55); AST (SGOT) 29 U/L (5-34); Albumin 3.6 g/dL (3.5-5.0); Alkaline Phosphatase 225 U/L (40-150); Anion Gap 12 mmol/L (10-20); BUN (Urea Nitrogen) 29 mg/dL (9.8-20.1); Bilirubin, Total 1.1 mg/dL (0.2-1.2); Calc. Creatinine Clearance 0 mL/min (70-130); Calcium 9.4 mg/dL (7.8-10.44); Carbon Dioxide 32 mmol/L (22-29); Chloride 99 mmol/L (98-107); Estimated GFR-MDRD 77; Globulin 4.4 g/dL (2.4-3.5); Glucose 101 mg/dL (70-105); Potassium 3.3 mmol/L (3.5-5.1); Sodium 140 mmol/L (136-145)
--- NOTE | 2019-02-09 18:30 | RAD ---
RADIOGRAPH CHEST 1 VIEW: DATE: 02/09/2019 TIME: 6:15 PM HISTORY: 58-year-old female with dyspnea COMPARISON: 01/08/2019 FINDINGS: Significant cardiomegaly. Diffuse pulmonary venous congestion is worse now than before. Prominent int erstitial markings. Retrocardiac portion of left lower lobe is obscured by the cardiomegaly. No pulmonary alveolar edema or consolidation in the rest of the visualized lung g[place]. No pneumothorax. IMPRESSION: Significant cardiomegaly and pulmonary venous congestion, worse than previously
--- NOTE | 2019-02-09 18:32 | RAD ---
Radiograph pelvis one view: DATE: 02/09/2019 HISTORY: 58-year-old female with severe right hip pain FINDINGS: Diffuse osteopenia. No fracture is identified, but the osteopenia, abdominal pannus/body habitus, and overlying bowel gas, could obscure a nondisplaced or mildly displaced fracture. No high-grade DJD of bilateral hips or SI joints. IMPRESSION: 1. Osteopenia. 2. Otherwise negative.
--- NOTE | 2019-02-09 18:33 | RAD ---
Radiograph right hip 2 views: DATE: 02/09/2019 HISTORY: 58-year-old female with severe right hip pain FINDINGS: Osteopenia. Femoral head contour maintained. Hip joint space maintained. No subcapital or acetabular osteophytes. IMPRESSION: 1. Osteopenia. 2. Otherwise negative.
[2019-02-09 19:45] LABS: Actual Bicarbonate (HCO3a) 34.2 mEq/L (22-28); Analyzer IN Cardio ER; Base Excess (BEa) 3.6 mEq/L (-2.0 to +3.0); Calcium, Ionized 1.21 mmol/L (1.12-1.30); Carboxyhemoglobin (COHb) 3.4 gm% (0.0-3.0); Hemoglobin (Hb) 14.7 g/dL (12.0-16.0); O2 Tension (PaO2) 88.9 mmHg (80.0-100.0); Potassium - ABG Lab 3.44 mmol/L (3.70-5.30)
[2019-02-09 19:46] LABS: CO2 Tension 83.7 mmHg (35.0-45.0); pH, Arterial 7.23 (7.35-7.45)
[2019-02-09 19:47] LABS: ALV-art Gradient 127.325 (0-20); Puncture Site LBA
[2019-02-09] MEDS ORDERED: Furosemide 40 MG/4 ML VIAL ONE (20:12)
[2019-02-09] MEDS ORDERED: Naloxone HCl 2 mg/2 ml Syringe ONE ×2 (20:12→22:30)
[2019-02-09 21:19] LABS: Troponin I Less than 0.010 ng/mL (< 0.028)
[2019-02-09 21:44] LABS: Actual Bicarbonate (HCO3a) 34.2 mEq/L (22-28); Analyzer IN Cardio ER; Calcium, Ionized 1.19 mmol/L (1.12-1.30); Carboxyhemoglobin (COHb) 2.9 gm% (0.0-3.0); Hemoglobin (Hb) 14.3 g/dL (12.0-16.0); O2 Tension (PaO2) 63.1 mmHg (80.0-100.0); Potassium - ABG Lab 3.39 mmol/L (3.70-5.30); pH, Arterial 7.29 (7.35-7.45)
[2019-02-09 21:46] LABS: CO2 Tension 72.7 mmHg (35.0-45.0)
[2019-02-09] MEDS ORDERED: Polyethylene Glycol 3350 17 GM Packet PO PRN (22:25)
[2019-02-09] MEDS ORDERED: Ondansetron PF 4 MG/2 ML Vial IVP PRN (22:25)
[2019-02-09] MEDS ORDERED: Acetaminophen 650 MG Suppository PR PRN (22:25)
[2019-02-09] MEDS ORDERED: Naloxone HCl 1 MG in Sodium Chloride 0.9% 500 ML IV PRN (22:45)
[2019-02-09] MEDS ORDERED: Naloxone HCl 2 MG, Admixture Fee 1 EACH in Sodium Chloride 0.9% 500 ML IV PRN (22:53)
[2019-02-09 23:34] LABS: Troponin I 0.026 ng/mL (< 0.028)
--- NOTE | 2019-02-09 23:54 | CT ---
CT pelvis noncontrast: DATE: 02/09/2019 Time: 11:12 PM HISTORY: 58-year-old female with traumatic right hip pain. Rule out fracture. FINDINGS: Moderate to large volume of free intraperitoneal fluid at the pelvic inlet, and moderate volume of fr ee fluid in the cul-de-sac in the dependent portion of the pelvic cavity. Multiple uterine fibroids indent the right posterior aspect of a distended urinary bladder. Normal wall thickness of urinary bl adder. Edema throughout the subcutaneous fat circumferentially, especially in the abdominal pannus. Moderate degenerative disc disease at L5-S1. Bilateral moderate to severe facet DJD at L4-5. Bilatera l moderate facet DJD at L5-S1. No fracture or dislocation at pelvis. Bilateral hip joints appear normal. IMPRESSION: 1. No fracture. 2. Normal bilateral hips. 3. Lower lumbar spondylosis. 4. Ascites. 5. Anasarca. 6. Multiple uterine leiomyomata.
--- NOTE | 2019-02-10 01:34 | HP ---
REASON FOR ADMISSION: Acute respiratory failure with hypoxia and hypercarbia, history of cor pulmonale with right-sided heart failure, right hip pain. HISTORY OF PRESENTING ILLNESS: Please note majority of this history is obtained by talking to ER physician and prior medical records as the patient is very lethargic and barely opens her eyes. Per ER physician, the patient had complained of right hip pain. She had home health nurse come check on her. She could not put weight on it. Finally, the home health nurse called EMS. While in the EMS, the patient developed shortness of breath and she was placed on 3 L nasal cannula oxygen. The saturations further dropped on arrival in the ER. It dropped to 80 % and she was initially placed on non-rebreather and later had to be upgraded to BiPAP. She was given 4 mg of morphine, 8 mg of Zofran, and had gone to the Radiology Department for a chest x-ray prior to her saturations dropping. She got 1 mg of Narcan, she awakened more with Narcan. PAST MEDICAL AND SURGICAL HISTORY: The patient has history of cor pulmonale with right-sided heart failure and severe COPD. She also has ongoing smoking history. She was recently discharged on the . She had paracentesis with removal of 1.4 L on the 09 of January. Pulmonary hypertension, hypothyroidism with prior thyroidectomy, left breast cyst removed in the past. CURRENT MEDICATIONS: The patient is on; 1. Diamox 250 mg twice daily. 2. Aspirin 81 mg daily. 3. Synthroid 75 mcg daily. 4. Bumex 2 mg twice daily. 5. DuoNeb q.6 hourly. ALLERGIES: NO KNOWN DRUG ALLERGIES. PERSONAL HISTORY: Continues to smoke half pack a day. Does not abuse alcohol or drugs. She lives with her brother. FAMILY HISTORY: Sister has history of diabetes. CODE STATUS: Cannot be obtained as the patient is very lethargic at present and is not oriented. PHYSICAL EXAMINATION: GENERAL: The patient is a 58-year-old female, who is currently on BiPAP and is very lethargic. VITAL SIGNS: Blood pressure 114/70, pulse 106 per minute, respiratory rate 24 per minute, temperature 98.9 degrees Fahrenheit, saturating 96% on BiPAP and 86% on 2 L nasal cannula prior to that. NECK: Supple. There is elevated JVD. HEENT: Eyes; extraocular muscles intact. Pupils reacting to light. Oral cavity, mucous membranes are dry. No exudates or congestion. CARDIOVASCULAR SYSTEM: S1 and S2 heard, S3 plus. RESPIRATORY SYSTEM: Air entry 1+ bilateral, rales plus bilateral. ABDOMEN: Distended. There is ascitic fluid present. No rigidity or guarding. EXTREMITIES: 1+ peripheral edema. No calf tenderness. VASCULAR SYSTEM: Peripheral pulses 1+ bilateral. No ischemic ulcerations or gangrene. The patient has excruciating pain in the right hip area. CENTRAL NERVOUS SYSTEM: No gross focal neurologic deficits noted. The patient is currently very lethargic and barely opens eyes to verbal stimuli. She does not follow verbal stimuli. PSYCHIATRIC SYSTEM: Cannot be assessed due to patient's current lethargy and not being oriented. LABORATORY DATA: EKG done shows sinus tach at 104 beats per minute, signs of RVH seen. Initial blood gas showed a pH of 7.23. Subsequent blood gas 2 hours later is 7.29; pCO2 was 83 initially, repeat is 72; pO2 was 88, repeat is 63. Troponin x3 is negative. Pelvic CAT scan shows no acute fractures. Normal bilateral hips were seen. Lumbar spine; spondylosis is seen, ascites. Anasarca was also seen. Multiple uterine fibroids were seen. Chest x-ray done shows cardiomegaly with pulmonary vascular congestion. Right hip x-ray, two view done shows osteopenia, otherwise negative. White count of 11.7, H and H 14 and 46, platelet count 252 , MCV is 87 with 85% neutrophils. BUN 29, creatinine 0.9, serum bicarb 32, potassium 3.3, AST ALT within normal limits, alkaline phosphatase 225. BNP 731. CLINICAL IMPRESSION AND PLAN: The patient will be admitted to IMCU for acute respiratory failure with hypoxia and hypercarbia, and chronic history of cor pulmonale with right-sided heart failure, pulmonary hypertension. We will closely monitor the patient in IMCU. If needed, Narcan will be liberally used to awaken her. She has severe pulmonary hypertension and would not want her to be intubated for now. We will try and make every effort to keep her awake on BiPAP. The patient likely decompensated due to morphine given in the ER for right hip pain. She apparently had excruciating pain in the right hip, which was the reason why she came to ER. We will continue aspirin, Lasix, Synthroid, DuoNeb q.6 hourly. Ultrasound venous Doppler at bedside will be done to rule out deep venous thrombosis. Multiple imaging studies for the hips have not revealed any acute fracture. She will be kept n.p.o. until she awakens fully. We will consult Dr. Salter, her print production manager and Dr. Rodriguez, her seaman. The patient's code status was full during her last admission. I have tried to contact the patient's 2 brothers, Mr. Aman Scott and Mr. Irene Scott and I am unable to reach either of them on the phone. Job ID: [id number] MTDD
[2019-02-10] MEDS ORDERED: Naloxone HCl 0.4 mg/ml Vial IV PRN (03:55)
[2019-02-10] MEDS: Furosemide 40 MG/4 ML VIAL SLOW IVP SCH ×2 (05:43→16:06)
[2019-02-10] MEDS: Levothyroxine Sodium 75 MCG TAB PO SCH (05:55)
[2019-02-10 07:08] LABS: Hemoglobin 13.8 g/dL (12.0-16.0); Mean Corpuscular HGB CONC 29.7 g/dL (32.0-36.0); Mean Corpuscular Hemoglobin 26.5 pg (27.0-31.0); Mean Corpuscular Volume 89.3 fL (78.0-98.0); Mean Platelet Volume 11.6 fL (7.4-10.4); Platelet Count 266 thou/uL (130-400); RBC Distribution Width 18.3 % (11.5-14.5); Red Blood Cell (RBC) Count 5.22 mill/uL (4.20-5.40); White Blood Cell (WBC) Count 12.6 thou/uL (4.8-10.8)
[2019-02-10 07:09] LABS: #Eosinphils 0.1 thou/uL (0.0-0.7); #Lymphocytes 1.4 thou/uL (1.20-3.40); #Monocytes 0.7 thou/uL (0.11-0.59); #Neutrophils 10.4 thou/uL (1.40-6.50); %Basophils 0.2 % (0.0-1.0); %Eosinophils 1.1 % (0.0-10.0); %Lymphocytes 10.8 % (21.0-51.0); %Monocytes 5.7 % (0.0-10.0); %Neutrophils 82.3 % (42.0-75.0)
[2019-02-10 07:25] LABS: Anion Gap 18 mmol/L (10-20); BUN (Urea Nitrogen) 34 mg/dL (9.8-20.1); Calc. Creatinine Clearance 60 mL/min (70-130); Calcium 9.6 mg/dL (7.8-10.44); Carbon Dioxide 28 mmol/L (22-29); Chloride 100 mmol/L (98-107); Estimated GFR-MDRD 59; Glucose 76 mg/dL (70-105); Potassium 3.6 mmol/L (3.5-5.1); Sodium 142 mmol/L (136-145)
[2019-02-10] MEDS: Enoxaparin Sodium 40 MG/0.4 ML SYRINGE SC SCH (08:50)
[2019-02-10] MEDS: Aspirin Chewable 81 MG TAB PO SCH (08:52)
--- NOTE | 2019-02-10 10:13 | ULT ---
BILATERAL LOWER EXTREMITY VENOUS ULTRASOUND WITH DOPPLER: Date: 02/10/19 COMPARISON: 08/09/18. TECHNIQUE: Gonzalez scale, color flow, Doppler imaging, and spectral waveform analysis performed of the left and rig ht lower extremity venous system. HISTORY: Evaluate for deep venous thrombosis. FINDINGS: Bilaterally, there is compressibility, presence of flow, and augmentation in the common femoral vein, femoral vein, and popliteal vein. There is flow in bilateral greater saphenous veins, profunda femor al veins, and posterior tibial veins. IMPRESSION: No evidence of thrombus in the left or right lower extremity deep venous system. POS: JARROD
--- NOTE | 2019-02-10 10:47 | CON ---
DATE OF CONSULTATION: HISTORY OF PRESENT ILLNESS: The patient is an unfortunate 58-year-old woman, who presented with respiratory failure. The patient has a long history of cor pulmonale. She has a long history of COPD. She has been having multiple occasions with right-sided heart failure. The patient was hospitalized most recently a month ago with respiratory distress. She was found on echocardiogram to have normal left ejection fraction 50% to 55%, severely enlarged right ventricle and right atrium with severe tricuspid regurgitation with severe pulmonary hypertension. The patient presents once again with respiratory failure. The patient was placed on BiPAP. The patient is unable to give a coherent history. PAST MEDICAL HISTORY: 1. Cor pulmonale. 2. COPD. 3. Sleep apnea. 4. Hypertension. PAST SURGICAL HISTORY: Thyroidectomy. SOCIAL HISTORY: Long history of tobacco abuse. MEDICATIONS: See nursing list. PHYSICAL EXAMINATION: VITAL SIGNS: Obtunded woman with a blood pressure of 104/73. NECK: Showed jugular venous distention to the jaw. LUNGS: Have coarse breath sounds bilateral. HEART: Regular rate and rhythm. Normal S1 with a loud P2. ABDOMEN: Her abdomen is distended. EXTREMITIES: Showed moderate bilateral edema. LABORATORY DATA: White blood cell count 12.6, hemoglobin 13.3, hematocrit 46.8, platelets 266. Sodium 142, potassium 3.6, chloride 100, bicarb 34, BUN 1.15, glucose 59. Troponin 0.026. IMAGING STUDIES: Her EKG revealed her to have sinus tachycardia, biatrial enlargement, right axis deviation, and right ventricular hypertrophy. IMPRESSION: 1. Altered mental status. 2. Respiratory failure. 3. Cor pulmonale. 4. Chronic obstructive pulmonary disease. 5. Severe pulmonary hypertension. This unfortunate woman has a long history of pulmonary hypertension She presents once again with right-sided heart failure. The patient's prognosis is very guarded. We will follow this patient with you through her hospitalization. Job ID: [id number] [facility]
--- NOTE | 2019-02-10 15:00 | PDOC.PALCO ---
Palliative Care Consult - Consult Details Requesting Physician: Dr Weathers Reason for Consult: goals of care Family Members Present: none - Pertinent HPI Patient not able to give history, however spoke with both Tabatha BOYCE who sees patient outpatient and A Bennett still runner Failure. Both are familiar with the patient. Notable is patient has been compliant with visits to the heart failure clinic in the past and recently has not made appointments. Palliative care consult for goals of care and discussion in relation to resuscitative measures. - Pertinent PMH Cor Pulmonale with right sided failure and severe COPD. COntinues to be a daily smoker. Paracentesis with removal of 1.4 liters January 09. Pulmonary hypertension, hypothyroid. - Social History Smoking Status: Current every day smoker Smoking: cigarettes (Lives with her brother) - Allergies Allergies/Adverse Reactions: Allergies Allergy/AdvReac Type Severity Reaction Status Date / Time No Known Allergies Allergy Verified 01/08/19 05:20 - Subjective Opens eyes when name is called, however not verbally responsive. ROS: Unable to obtain secondary to patient lethargic state - Objective Vital Signs: Vital Signs - Most Recent Temp Pulse Resp BP Pulse Ox 97.0 F L 110 H 32 H 95 02/10/19 11:08 02/10/19 13:10 02/10/19 13:10 02/10/19 13:10 - Physical Exam Constitutional: severe distress HEENT: moist MMs, EOMI Deviation from normal: Labored respirations with accessory muscle use, Bi Pap Cardiovascular: RRR Deviation from normal: Distended, tympani on percussion Deviation from normal: Edema Deviation from normal: lethargic Skin: normal turgor - Plan/Recommendations Plan: Spoke with Tabatha BOYCE who sees patient outpatient in home setting and A Bennett who is also familiar with the patient. Jazmine Wilcox to reach out to sister to revisit goals of care and discuss resuscitation status. [60] minutes spent on this encounter with >50% of the time in counseling and coordination of care. Thank you for this very appropriate consult.
--- NOTE | 2019-02-10 15:05 | PQF ---
CLINICAL DOCUMENTATION IMPROVEMENT CLARIFICATION FORM: ICD-10 Updated PLEASE DO AN ADDENDUM TO THE PROGRESS NOTE WITH ANY DOCUMENTATION UPDATES OR ADDITIONS AND CARRY THROUGH TO DC SUMMARY. THANK YOU. DATE: 02/10/19 ATTN: DR. MAJANO Please exercise your independent, professional judgment in responding to the clarification form. Clinical indicators are provided on the bottom of this form for your review Please check appropriate box(s): [ ] Acute Respiratory Failure: [ ] with Hypoxia[ ] with Hypercapnia [ x ] Acute On Chronic Respiratory Failure: [ x ] with Hypoxia [ x ] with Hypercapnia [ ] Chronic Respiratory Failure only [ ] with Hypoxia [ ] with Hypercapnia [ ] Other diagnosis [ ] Unable to determine In addition, please specify: Present on Admission (POA): [ x ] Yes [ ] No [ ] Unable to determine For continuity of documentation, please document condition throughout progress notes and discharge summary. Thank You. CLINICAL INDICATORS - SIGNS / SYMPTOMS / LABS ER NOTE 02/09: "NORMALLY WEARS 2L HOME O2" "PATIENT WAS 77% ON ROOM AIR" RR 26 PULSE 117 RISKS: COPD (ER NOTE) CHF (ER NOTE) SMOKING (ER NOTE) COR PULMONALE (H&P 02/10) TREATMENT: SUPPLEMENTAL OXYGEN (ER NOTE) BIPAP (ER) DUONEBS (ER) LASIX IV (ER) NARCAN (ER) SAP Pedal Assembler [employer] Winform Viewer (This form is maintained as a part of the permanent medical record) 2014 [employer]. All Rights Reserved [email or web address] Office: [phone] [facility]
--- NOTE | 2019-02-10 15:16 | PQF ---
CLINICAL DOCUMENTATION IMPROVEMENT CLARIFICATION FORM: ICD-10 Updated PLEASE DO AN ADDENDUM TO THE PROGRESS NOTE WITH ANY DOCUMENTATION UPDATES OR ADDITIONS AND CARRY THROUGH TO DC SUMMARY. THANK YOU. DATE: 02/10/19 ATTN: DR. MAJANO Please exercise your independent, professional judgment in responding to the clarification form. Clinical indicators are provided on the bottom of this form for your review Please check appropriate box(s): HEART FAILURE: A. TYPE: [ ] Systolic / HFrEF [ x ] Diastolic / HFpEF [ ] Combined Systolic / Diastolic B. ACUITY [ ] Acute [ x ] Acute on Chronic [ ] Chronic [ ] Other diagnosis [ ] Unable to determine In addition, please specify: Present on Admission (POA): [ x ] Yes [ ] No [ ] Unable to determine For continuity of documentation, please document condition throughout progress notes and discharge summary. Thank You. CLINICAL INDICATORS - SIGNS / SYMPTOMS / LABS ER NOTE: "ACUTE CHF EXACERBATION" BNP 02/09: 731.4 RISKS: H/O CHF (ER NOTE 02/09) COR PULMONALE (H&P 02/09) H/O HYPERTENSION (ER NOTE 02/09) TREATMENT: IV LASIX (ER-PRESENT) SUPPLEMENTAL OXYGEN (ER-PRESENT) CARDIOLOGY CONSULT (This form is maintained as a part of the permanent medical record) 2014 [employer]. All Rights Reserved [email or web address] Office: [phone] REGINALD
[2019-02-10 16:04] LABS: Actual Bicarbonate (HCO3a) 29.8 mEq/L (22-28); Base Excess (BEa) -0.3 mEq/L (-2.0 to +3.0); Calcium, Ionized 1.21 mmol/L (1.12-1.30); Carboxyhemoglobin (COHb) 1.9 gm% (0.0-3.0); Hemoglobin (Hb) 14.3 g/dL (12.0-16.0)
[2019-02-10 16:07] LABS: CO2 Tension 76.5 mmHg (35.0-45.0); pH, Arterial 7.21 (7.35-7.45)
[2019-02-10 16:08] LABS: ALV-art Gradient -118.105 (0-20); Puncture Site RRA
--- NOTE | 2019-02-10 16:38 | PDOC.HOSPP ---
- Subjective Encounter Date: 02/10/19 Encounter Time: 16:15 Subjective: f/u for acute/chronic resp failure with CHF exacerbation on BiPAP NIMV. Nsg reports continued deterioration despite BiPAP with somnolence and worsening acidosis. MPOA deciding to proceed with intubation. - Objective Vital Signs & Weight: Vital Signs (12 hours) Temp Pulse Resp Pulse Ox 02/10/19 15:33 97.5 F L 02/10/19 13:10 110 H 32 H 95 02/10/19 11:08 97.0 F L 02/10/19 08:12 112 H 35 H 95 02/10/19 08:11 112 H 33 H 95 02/10/19 07:19 97.1 F L Weight Weight 154 lb 7 oz Most Recent Monitor Data Heart Rate from ECG 108 NIBP 105/69 NIBP BP-Mean 81 Respiration from ECG 30 SpO2 98 I&O: 02/09/19 02/10/19 02/11/19 06:59 06:59 06:59 Intake Total 25 Output Total 500 Balance -475 Result Diagrams: 02/10/19 06:35 02/10/19 06:35 Additional Labs: Accuchecks 02/10/19 04:31 POC Glucose 79 Microbiology 09/15/18 19:06 Nasal swab Influenza Types A,B Direct EIA - Final 02/09/19 20:21 Venous blood - Right Hand Blood Culture - Preliminary Specimen has been received and culture in progress. No Growth to date. 02/09/19 20:16 Venous blood - Right Arm Blood Culture - Preliminary Specimen has been received and culture in progress. No Growth to date. 09/15/18 18:05 Venous blood - Right Arm Blood Culture - Preliminary Specimen has been received and culture in progress. No Growth to date. 09/15/18 18:05 Venous blood - Left Arm Blood Culture - Preliminary Specimen has been received and culture in progress. No Growth to date. Laboratory Tests 09/15/18 09/15/18 09/16/18 18:05 18:05 04:52 WBC 9.1 Neutrophils % 78.0 H Neutrophils % (Manual) 82 H Bicarbonate Actual ABG pH ABG pCO2 ABG pO2 ABG O2 Sat Calc/Froylan Potassium 5.3 H Creatinine 1.64 H B-Natriuretic Peptide 12/29/18 01/08/19 01/10/19 08:41 00:39 04:53 WBC Neutrophils % Neutrophils % (Manual) Bicarbonate Actual ABG pH ABG pCO2 ABG pO2 ABG O2 Sat Calc/Froylan Potassium Creatinine 0.76 B-Natriuretic Peptide 595.8 H 1067.1 H 02/09/19 02/09/19 02/09/19 17:41 17:41 17:41 WBC 11.7 H Neutrophils % 85.5 H Neutrophils % (Manual) Bicarbonate Actual ABG pH ABG pCO2 ABG pO2 ABG O2 Sat Calc/Froylan Potassium Creatinine 0.91 B-Natriuretic Peptide 731.4 H 02/10/19 02/10/19 06:35 15:57 WBC Neutrophils % 82.3 H Neutrophils % (Manual) Bicarbonate Actual 29.8 H ABG pH 7.21 L* ABG pCO2 76.5 H* ABG pO2 51.0 L* ABG O2 Sat Calc/Froylan 80.0 L* Potassium Creatinine B-Natriuretic Peptide Radiology Reviewed by me: Yes (LE venous dopp - neg for DVT) EKG Reviewed by me: Yes (Tele - sinus tachycardia 110's) Hospitalist ROS - Medication Medications: Active Medications Generic Name Dose Route Start Last Admin Trade Name Freq PRN Reason Stop Dose Admin Aspirin 81 mg 02/10/19 09:00 02/10/19 08:52 Aspirin Chewable PO Not Given DAILY [facility] Enoxaparin Sodium 40 mg 02/10/19 09:00 02/10/19 08:50 Lovenox SC 40 mg 0900 [facility] Administration Furosemide 40 mg 02/10/19 06:00 02/10/19 16:06 Lasix SLOW IVP 40 mg 0600,1400 [facility] Administration Levothyroxine Sodium 75 mcg 02/10/19 06:00 02/10/19 05:55 Synthroid PO Not Given 0600 [facility] Naloxone HCl 0.4 mg 02/10/19 03:55 02/10/19 05:51 Narcan IV 0.4 mg Q3H PRN Administration somnolence - Exam General Appearance: ill appearing General - other findings: somnolent, opens eyes briefly to name Eye: PERRL, anicteric sclera ENT: normocephalic atraumatic, no oropharyngeal lesions ENT - other findings: BiPAP facemask in place Neck: supple, JVD Heart: no gallops, no rubs Heart - other findings: S1, S2 with tachycardia Respiratory - other findings: diminished in bases, coarse sounds R>L Gastrointestinal: soft, non-tender, non-distended, normal bowel sounds Gastrointestinal - other findings: Watkins with scant patricia urine Extremities: 1+ LE edema Skin: normal turgor Musculoskeletal: generalized weakness Psychiatric: oriented to person, somnolent, lethargic Hosp A/P (1) Acute on chronic respiratory failure with hypoxia Code(s): J96.21 - ACUTE AND CHRONIC RESPIRATORY FAILURE WITH HYPOXIA Status: Acute Plan: Multifactorial process including COPD/CHF, failed BiPAP NIMV, discussed situation with family and MPOA who states they want her intubated and mech ventilated, discussed risks of ventilator including dependency and potential trach, Pulmonology consulted (2) Acute exacerbation of congestive heart failure Code(s): I50.9 - HEART FAILURE, UNSPECIFIED Status: Acute Qualifiers: Heart failure type: diastolic Qualified Code(s): I50.33 - Acute on chronic diastolic (congestive) heart failure Plan: Unresponsive to Lasix currently, see above, likely end-stage process (3) COPD exacerbation Code(s): J44.1 - CHRONIC OBSTRUCTIVE PULMONARY DISEASE W (ACUTE) EXACERBATION Status: Acute Plan: See above, add Solumedrol, change Duonebs q4h (4) Cor pulmonale Code(s): I27.81 - COR PULMONALE (CHRONIC) Status: Chronic Plan: Chronic, progressive (5) Tobacco abuse Code(s): Z72.0 - TOBACCO USE Status: Chronic Plan: Ongoing (6) ALICIA (acute kidney injury) Code(s): N17.9 - ACUTE KIDNEY FAILURE, UNSPECIFIED Status: Acute Plan: Avoid nephrotoxic meds and limit contrast exposure, serial creatinine - Plan plan discussed w/ family, professor of social work, respiratory therapy, DVT proph w/SCDs Consults: Palliative Care Transfer to CCU D/W family regarding clinical deterioration and need for mech ventilation vs comfort/hospice care, family choosing aggressive intervention Add Solumedrol Change Duonebs q4h Pulmonary/Critical care consult AM lab: CMP, CBC. ABG PCXR in am Total critical care time: 32min
[2019-02-10] MEDS ORDERED: Midazolam HCl 2 mg/2 ml Vial ONE (16:46)
--- NOTE | 2019-02-10 16:53 | PDOC.FMACP ---
Advance Care Planning - Problem (1) Acute on chronic respiratory failure with hypoxia Status: Acute Code(s): J96.21 - ACUTE AND CHRONIC RESPIRATORY FAILURE WITH HYPOXIA (2) Acute exacerbation of congestive heart failure Status: Acute Code(s): I50.9 - HEART FAILURE, UNSPECIFIED Qualifiers: Heart failure type: diastolic Qualified Code(s): I50.33 - Acute on chronic diastolic (congestive) heart failure (3) COPD exacerbation Status: Acute Code(s): J44.1 - CHRONIC OBSTRUCTIVE PULMONARY DISEASE W (ACUTE ) EXACERBATION (4) Cor pulmonale Status: Chronic Code(s): I27.81 - COR PULMONALE (CHRONIC) (5) Tobacco abuse Status: Chronic Code(s): Z72.0 - TOBACCO USE (6) ALICIA (acute kidney injury) Status: Acute Code(s): N17.9 - ACUTE KIDNEY FAILURE, UNSPECIFIED - Note Participants: patient, family, surrogate decision-maker, palliative care Summary: Advanced Care Planning was discussed. The diagnosis, prognosis and goals of care were discussed. Appropriate forms and documentation to accomplish the goals of care were discussed. All questions were answered. The Palliative Care Team will be engaged to assist with completion of any outstanding forms that are needed. Spoke with sister(MPOA) and [id number] regarding worsening resp failure and need to decide on aggressive intervention vs comfort/palliative measures. Family deciding to pursue aggressive interventions short of chest compressions. Family aware of potential complications and potential tracheostomy. Family verbalized understanding and agreement to pursue intubation. Total ACP time: 25min Time Spent (mins): 25
[2019-02-10] MEDS ORDERED: Ventilator Sedation Protocol 1 EACH FS ONE (16:57)
[2019-02-10] MEDS ORDERED: Propofol 1,000 MG/100 ML VIAL IV PRN (17:02)
[2019-02-10] MEDS ORDERED: Fentanyl BOLUS 250 ML IVPB PRN (17:02)
[2019-02-10] MEDS ORDERED: DISCONTINUE PREVIOUS NARCOTIC PAIN MEDICATIONS AND BENZODIAZEPINES FS SCH (17:02)
[2019-02-10] MEDS ORDERED: Propofol BOLUS 1,000 MG/100 ML VIAL IV PRN (17:02)
[2019-02-10] MEDS ORDERED: Lorazepam 2 MG/ML VIAL ONE (17:02)
--- NOTE | 2019-02-10 17:11 | RAD ---
Chest AP view INDICATION: Intubation COMPARISON: February 09, 2019 FINDINGS: Lungs:The lungs are clear Cardiac silhouette:There is prominent cardiomegaly. Pulmonary vasculature:Normal Pleural spaces:No pleural effusion or pneumothorax is demonstrated. Upper abdomen:No abnormality seen. Osseous structures: No acute osseous abnormality. Additional findings:The patient is intubated. The endotracheal tube tip is seen 4.2 cm from the level of the hosea. The gastric catheter has been placed and projects below the left hemidiaphragm and beyond the [id number]. IMPRESSION: Interval intubation. Stable prominent cardiomegaly.
[2019-02-10] MEDS ORDERED: Sodium Chloride 0.9% 1,000 ML IV SCH (17:15)
[2019-02-10] MEDS ORDERED: Midazolam HCl 2 mg/2 ml Vial SLOW IVP SCH (17:15)
[2019-02-10] MEDS: fentaNYL Citrate/PF 2,000 MCG in Sodium Chloride 0.9% 60 ML IV SCH (17:27)
[2019-02-10 17:39] LABS: Actual Bicarbonate (HCO3a) 27.4 mEq/L (22-28); CO2 Tension 46.1 mmHg (35.0-45.0); Calcium, Ionized 1.15 mmol/L (1.12-1.30); Carboxyhemoglobin (COHb) 1.4 gm% (0.0-3.0); Hemoglobin (Hb) 12.8 g/dL (12.0-16.0); O2 Tension (PaO2) 62.7 mmHg (80.0-100.0); Potassium - ABG Lab 3.67 mmol/L (3.70-5.30); pH, Arterial 7.39 (7.35-7.45)
[2019-02-10 17:40] LABS: ALV-art Gradient 236.175 (0-20); Puncture Site LRA
[2019-02-10] MEDS ORDERED: methylPREDNISolone Sod Succ 40 MG VIAL IVP SCH (18:00)
[2019-02-10] MEDS: Sodium Chloride 0.45% 1,000 ML IV SCH (23:55)
--- NOTE | 2019-02-11 00:06 | CON ---
DATE OF CONSULTATION: HISTORY OF PRESENT ILLNESS: Ms. Scott is a 58-year-old female, who presented with altered mental status to the emergency department last night. She was placed on BiPAP and admitted to the intermediate care unit. Last night, she had a pH of 7.23 on presentation and then 7.29 on BiPAP. Family was in the room and stated that her mental status has not dramatically improved. When I saw her in consultation this afternoon, she was noted to have extremely small tidal volumes. Blood gas showed a pH of 7.21, so she was transferred to the critical care unit for further care. Family met with palliative care and stated that they wanted everything done. PAST MEDICAL HISTORY: Remarkable for; 1. Respiratory failure in the past requiring mechanical ventilation. 2. History of COPD. 3. History of patent ductus arteriosus diagnosed as an adult according to old records, but I have not seen any evidence of this documented here on echocardiograms or by the doorshaker. 4. Pulmonary hypertension. 5. Diabetes. 6. Hypothyroidism. 7. Hypertension. 8. History of thyroidectomy. 9. History of pulmonary function test done in 2017 showing severe obstructive lung disease. 10. History nuclear perfusion study done in 2017 showing no thromboembolic disease. 11. History of normal ejection fraction on transesophageal echo. No patent ductus was reported on the transesophageal echo. 12. History of respiratory failure in May 30, requiring intubation after a failed trial of BiPAP. FAMILY HISTORY: Negative for lung disease in early age. SOCIAL HISTORY: She is a nonsmoker, nondrinker, according to family. REVIEW OF SYSTEMS: Ten-point review of systems is not obtainable as she is nonverbal. She will open her eyes, but she will not follow commands. PHYSICAL EXAMINATION: VITAL SIGNS: Blood pressure 109/64, heart rate 94, respiratory rate 20. HEENT: Pupils are equal. Sclerae are anicteric. NECK: Without lymphadenopathy. She appears much older than her age. LUNGS: Remarkable for mild rhonchi bilaterally. HEART: Regular rhythm. S1 and S2 are normal. ABDOMEN: Soft and nontender. EXTREMITIES: Without clubbing, cyanosis, or edema. LABORATORY DATA: White count 12.6, hemoglobin 13.8, platelets 266. Electrolytes are normal. Creatinine is 1.15. Blood gas prior to transfer 7.21, CO2 76, PO2 51. Chest x-ray done yesterday afternoon showed cardiomegaly. IMPRESSION: Impending respiratory failure. Family wants everything to be done. She will be transferred to critical care unit for critical care, intubation, mechanical ventilation. I suspect with her pulmonary hypertension when she is intubated, she will need some volume. CRITICAL CARE TIME: Independent of procedure is 45 minutes. Job ID: [id number]
[2019-02-11] MEDS: Sodium Chloride 0.45% 1,000 ML IV SCH ×4 (01:03→23:30)
[2019-02-11] MEDS: methylPREDNISolone Sod Succ 40 MG VIAL IVP SCH ×5 (01:04→23:30)
[2019-02-11] MEDS: Levothyroxine Sodium 75 MCG TAB PO SCH (05:42)
[2019-02-11] MEDS: Furosemide 40 MG/4 ML VIAL SLOW IVP SCH ×2 (05:42→13:59)
[2019-02-11 05:44] LABS: Anion Gap 19 mmol/L (10-20); BUN (Urea Nitrogen) 53 mg/dL (9.8-20.1); Calc. Creatinine Clearance 43 mL/min (70-130); Carbon Dioxide 25 mmol/L (22-29); Chloride 103 mmol/L (98-107); Estimated GFR-MDRD 40; Glucose 87 mg/dL (70-105); Potassium 3.6 mmol/L (3.5-5.1); Sodium 143 mmol/L (136-145)
[2019-02-11 05:49] LABS: Anisocytosis SLIGHT = 6-15 cells (100X) (0-5/hpf); Band 11 % (5-11); Hemoglobin 12.3 g/dL (12.0-16.0); Large Platelets SLIGHT; Lymphocytes 7 % (21-51); MDiff Complete? YES; Mean Corpuscular HGB CONC 30.4 g/dL (32.0-36.0); Mean Corpuscular Volume 85.6 fL (78.0-98.0); Mean Platelet Volume 10.2 fL (7.4-10.4); Monocytes 4 % (0-10); Neutrophil 78 % (42-75); Platelet Count 250 thou/uL (130-400); Platelet Morphology Comment Appears Adequate; RBC Distribution Width 18.3 % (11.5-14.5); Red Blood Cell (RBC) Count 4.72 mill/uL (4.20-5.40); White Blood Cell (WBC) Count 12.5 thou/uL (4.8-10.8)
[2019-02-11 07:16] LABS: Actual Bicarbonate (HCO3a) 25.8 mEq/L (22-28); Base Excess (BEa) 2.6 mEq/L (-2.0 to +3.0); CO2 Tension 35.5 mmHg (35.0-45.0); Calcium, Ionized 1.19 mmol/L (1.12-1.30); Carboxyhemoglobin (COHb) 1.4 gm% (0.0-3.0); Hemoglobin (Hb) 12.6 g/dL (12.0-16.0); O2 Tension (PaO2) 94.5 mmHg (80.0-100.0); Puncture Site RRA; pH, Arterial 7.48 (7.35-7.45)
[2019-02-11 07:17] LABS: ALV-art Gradient 217.625 (0-20)
[2019-02-11] MEDS: Enoxaparin Sodium 40 MG/0.4 ML SYRINGE SC SCH (08:42)
[2019-02-11] MEDS: Aspirin Chewable 81 MG TAB PO SCH (08:42)
--- NOTE | 2019-02-11 10:09 | RAD ---
PORTABLE SEMIUPRIGHT FRONTAL CHEST RADIOGRAPH: Date: 02/11/19 Time: 0417 hours COMPARISON: 02/10/19. HISTORY: Ventilated patient. FINDINGS: Stable prominence of the cardiac silhouette. Stable endotracheal tube and nasogastric tube. Stable in creased linear interstitial density in the right hemithorax. Stable increased density within the mid left lung zone and the left lung base, and there is stable pr ominence of the cardiac silhouette. IMPRESSION: No significant interval change. POS: OFF
--- NOTE | 2019-02-11 12:17 | PRG ---
DATE OF SERVICE: 02/11/2019 SUBJECTIVE: Ms. Scott is stable. She is awake today. She moves all her extremities. OBJECTIVE: VITAL SIGNS: Heart rate is 77, blood pressure is 106/70, respiratory rate is 20. HEENT: Pupils react. Sclerae are anicteric. Extraocular movements are full. NECK: Supple. LUNGS: Clear anteriorly. HEART: Regular rhythm. S1 and S2 are normal. She has grade 3/6 systolic murmur. ABDOMEN: Soft, nontender. EXTREMITIES: Without edema. DIAGNOSTIC STUDIES: Chest radiographs unchanged, massive cardiomegaly. LABORATORY DATA: White count 12.5, hemoglobin 12.3, and platelets 250. Sodium 143, potassium 3.6, chloride 103, bicarb 25, BUN 53, and creatinine 1.62. IMPRESSION: 1. Respiratory failure, acute on chronic, status post intubation. 2. History of patent ductus arteriosus? Not seen on transesophageal echo here. 3. Mild systolic murmur. 4. Cardiomyopathy with pulmonary hypertension. 5. Chronic obstructive pulmonary disease. 6. Acute on chronic kidney disease. Continue with current mechanical ventilatory support. Nutritional support needs to be started. She will likely be ventilated several days. I met with family and answered all their questions. Job ID: [id number] [facility]
--- NOTE | 2019-02-11 18:06 | PDOC.HOSPP ---
- Subjective Encounter Date: 02/11/19 Encounter Time: 08:30 Subjective: f/u for resp failure on [facility] ventilation. Remains on ventilator with Propofol for sedation. - Objective Vital Signs & Weight: Vital Signs (12 hours) Temp Pulse Resp BP Pulse Ox 02/11/19 17:00 20 95 02/11/19 16:00 98.7 F 20 02/11/19 15:00 63 02/11/19 14:47 77 95/59 L 02/11/19 14:00 71 20 02/11/19 13:00 71 20 96 02/11/19 12:00 98.7 F 72 20 94 L 02/11/19 11:00 98.7 F 02/11/19 10:26 77 106/70 02/11/19 10:00 72 20 94 L 02/11/19 09:00 20 94 L 02/11/19 08:00 20 94 L 02/11/19 07:23 91 99/63 02/11/19 07:00 98.7 F Weight Admit Weight 163 lb 5.8 oz Weight 163 lb 5.8 oz Most Recent Monitor Data Heart Rate from ECG 81 NIBP 104/64 NIBP BP-Mean 77 Respiration from ECG 20 SpO2 100 I&O: 02/10/19 02/11/19 02/12/19 06:59 06:59 06:59 Intake Total 25 3138 Output Total 500 1180 1250 Balance -475 1958 -1250 Result Diagrams: 02/11/19 05:08 02/11/19 05:08 Additional Labs: Microbiology 09/15/18 19:06 Nasal swab Influenza Types A,B Direct EIA - Final 02/09/19 20:21 Venous blood - Right Hand Blood Culture - Preliminary Specimen has been received and culture in progress. No Growth to date. 02/09/19 20:21 Venous blood - Right Hand Blood Culture - Preliminary NO GROWTH AT 48 HOURS 02/09/19 20:16 Venous blood - Right Arm Blood Culture - Preliminary Specimen has been received and culture in progress. No Growth to date. 02/09/19 20:16 Venous blood - Right Arm Blood Culture - Preliminary NO GROWTH AT 48 HOURS 09/15/18 18:05 Venous blood - Right Arm Blood Culture - Preliminary Specimen has been received and culture in progress. No Growth to date. 09/15/18 18:05 Venous blood - Left Arm Blood Culture - Preliminary Specimen has been received and culture in progress. No Growth to date. Laboratory Tests 09/15/18 09/15/18 09/16/18 18:05 18:05 04:52 WBC 9.1 Neutrophils % 78.0 H Neutrophils % (Manual) 82 H Bicarbonate Actual ABG pH ABG pCO2 ABG pO2 ABG O2 Sat Calc/Froylan Potassium 5.3 H BUN Creatinine 1.64 H B-Natriuretic Peptide 12/29/18 01/08/19 01/10/19 08:41 00:39 04:53 WBC Neutrophils % Neutrophils % (Manual) Bicarbonate Actual ABG pH ABG pCO2 ABG pO2 ABG O2 Sat Calc/Froylan Potassium BUN Creatinine 0.76 B-Natriuretic Peptide 595.8 H 1067.1 H 02/09/19 02/09/19 02/09/19 17:41 17:41 17:41 WBC 11.7 H Neutrophils % 85.5 H Neutrophils % (Manual) Bicarbonate Actual ABG pH ABG pCO2 ABG pO2 ABG O2 Sat Calc/Froylan Potassium BUN Creatinine 0.91 B-Natriuretic Peptide 731.4 H 02/10/19 02/10/19 02/10/19 06:35 06:35 15:57 WBC 12.6 H Neutrophils % 82.3 H Neutrophils % (Manual) Bicarbonate Actual 29.8 H ABG pH 7.21 L* ABG pCO2 76.5 H* ABG pO2 51.0 L* ABG O2 Sat Calc/Froylan 80.0 L* Potassium BUN 34 H Creatinine 1.15 H B-Natriuretic Peptide 02/11/19 05:08 WBC Neutrophils % Neutrophils % (Manual) 78 H Bicarbonate Actual ABG pH ABG pCO2 ABG pO2 ABG O2 Sat Calc/Froylan Potassium BUN Creatinine B-Natriuretic Peptide Radiology Reviewed by me: Yes (LE dopp - no DVT) EKG Reviewed by me: Yes (Tele - SR) Hospitalist ROS - Medication Medications: Active Medications Generic Name Dose Route Start Last Admin Trade Name Freq PRN Reason Stop Dose Admin Albuterol/Ipratropium 3 ml 02/10/19 18:30 02/11/19 14:46 Duoneb NEB 3 ml [id number] FEROZ Administration Aspirin 81 mg 02/10/19 09:00 02/11/19 08:42 Aspirin Chewable PO 81 mg DAILY FEROZ Administration Enoxaparin Sodium 40 mg 02/10/19 09:00 02/11/19 08:42 Lovenox SC 40 mg 0900 FEROZ Administration Furosemide 40 mg 02/10/19 06:00 02/11/19 13:59 Lasix SLOW IVP 40 mg 0600,1400 FEROZ Administration Fentanyl Citrate 2,000 mcg/ 100 mls @ 0 mls/hr 02/10/19 17:02 02/10/19 17:27 Sodium Chloride IV 03/12/19 17:02 100 mls INF FEROZ Administration Protocol Per Protocol Sodium Chloride 1,000 mls @ 100 mls/hr 02/10/19 17:15 02/11/19 11:51 1/2 Normal Saline IV 1,000 mls .Q10H FEROZ Administration Levothyroxine Sodium 75 mcg 02/10/19 06:00 02/11/19 05:42 Synthroid PO 75 mcg 0600 FEROZ Administration Methylprednisolone Sodium Succinate 20 mg 02/10/19 23:59 02/11/19 18:02 Solu-Medrol IVP 20 mg Q6HR FEROZ Administration - Exam General - other findings: sedate on mech ventilation Eye: anicteric sclera ENT: normocephalic atraumatic, no oropharyngeal lesions ENT - other findings: ETT in place Neck: supple, symmetric, no JVD, no thyromegaly Heart: RRR, no gallops, no rubs, normal peripheral pulses Respiratory: no wheezes, no tachypnea Respiratory - other findings: diminished in basilar segments, few rhonchi Gastrointestinal: soft, non-tender, non-distended, normal bowel sounds, no palpable masses Extremities: no cyanosis, no clubbing, no edema Skin: normal turgor, no lesions Psychiatric: somnolent Psychiatric - other findings: sedate on mech ventilation Hosp A/P (1) Acute on chronic respiratory failure with hypoxia Code(s): J96.21 - ACUTE AND CHRONIC RESPIRATORY FAILURE WITH HYPOXIA Status: Acute Plan: Continue mech ventilation, PCXR, serial ABG's, Solumedrol and Duonebs (2) Acute exacerbation of congestive heart failure Code(s): I50.9 - HEART FAILURE, UNSPECIFIED Status: Acute Qualifiers: Heart failure type: diastolic Qualified Code(s): I50.33 - Acute on chronic diastolic (congestive) heart failure Plan: Continue Lasix 40mg IV BID, serial I/O's, daily weight (3) COPD exacerbation Code(s): J44.1 - CHRONIC OBSTRUCTIVE PULMONARY DISEASE W (ACUTE) EXACERBATION Status: Acute Plan: See above #1 (4) Cor pulmonale Code(s): I27.81 - COR PULMONALE (CHRONIC) Status: Chronic (5) Tobacco abuse Code(s): Z72.0 - TOBACCO USE Status: Chronic (6) ALICIA (acute kidney injury) Code(s): N17.9 - ACUTE KIDNEY FAILURE, UNSPECIFIED Status: Acute Plan: Avoid nephrotoxic meds and limit contrast exposure, serial creatinine - Plan mental health social worker, respiratory therapy, DVT proph w/SCDs Continue aggressive pulmonary support Continue Solumedrol Change Duonebs q4h Pulmonary/Critical care consult appreciated AM lab: CMP, CBC. ABG PCXR in am
[2019-02-12] MEDS: methylPREDNISolone Sod Succ 40 MG VIAL IVP SCH ×3 (05:30→18:48)
[2019-02-12] MEDS: Furosemide 40 MG/4 ML VIAL SLOW IVP SCH ×2 (05:30→13:32)
[2019-02-12] MEDS: Levothyroxine Sodium 75 MCG TAB PO SCH (05:31)
[2019-02-12 06:12] LABS: Anisocytosis SLIGHT = 6-15 cells (100X) (0-5/hpf); Band 7 % (5-11); Hemoglobin 11.9 g/dL (12.0-16.0); Hypochromia SLIGHT = 6-15 cells (100X) (0-5/hpf); Large Platelets SLIGHT; Lymphocytes 5 % (21-51); MDiff Complete? YES; Mean Corpuscular HGB CONC 30.3 g/dL (32.0-36.0); Mean Corpuscular Hemoglobin 26.3 pg (27.0-31.0); Mean Corpuscular Volume 86.7 fL (78.0-98.0); Mean Platelet Volume 10.6 fL (7.4-10.4); Monocytes 4 % (0-10); Neutrophil 84 % (42-75); Platelet Count 252 thou/uL (130-400); Platelet Morphology Comment Appears Adequate; RBC Distribution Width 18.5 % (11.5-14.5); Red Blood Cell (RBC) Count 4.54 mill/uL (4.20-5.40); White Blood Cell (WBC) Count 12.5 thou/uL (4.8-10.8)
[2019-02-12 06:18] LABS: Anion Gap 18 mmol/L (10-20); BUN (Urea Nitrogen) 58 mg/dL (9.8-20.1); Calc. Creatinine Clearance 68 mL/min (70-130); Calcium 9.9 mg/dL (7.8-10.44); Carbon Dioxide 28 mmol/L (22-29); Chloride 102 mmol/L (98-107); Estimated GFR-MDRD 64; Glucose 125 mg/dL (70-105); Potassium 3.2 mmol/L (3.5-5.1); Sodium 145 mmol/L (136-145)
[2019-02-12 07:53] LABS: Actual Bicarbonate (HCO3a) 30.2 mEq/L (22-28); Base Excess (BEa) 6.2 mEq/L (-2.0 to +3.0); CO2 Tension 41.2 mmHg (35.0-45.0); Calcium, Ionized 1.27 mmol/L (1.12-1.30); Carboxyhemoglobin (COHb) 0.8 gm% (0.0-3.0); Hemoglobin (Hb) 12.8 g/dL (12.0-16.0); O2 Tension (PaO2) 83.8 mmHg (80.0-100.0); Potassium - ABG Lab 2.97 mmol/L (3.70-5.30); pH, Arterial 7.48 (7.35-7.45)
[2019-02-12 07:54] LABS: Puncture Site RR
[2019-02-12] MEDS: fentaNYL Citrate/PF 2,000 MCG in Sodium Chloride 0.9% 60 ML IV SCH (08:14)
--- NOTE | 2019-02-12 09:53 | RAD ---
FRONTAL RADIOGRAPH CHEST PORTABLE SUPINE: Date: 02/12/19 COMPARISON: 02/11/19. HISTORY: Ventilated patient. FINDINGS: Stable endotracheal tube and nasogastric tube. Stable enlargement of the cardiac silhouette with dens e opacity in the left base suggesting air space disease and pleural fluid. Stable hazy density in the right base. IMPRESSION: No significant interval change. POS: OFF
[2019-02-12] MEDS: Enoxaparin Sodium 40 MG/0.4 ML SYRINGE SC SCH (09:57)
[2019-02-12] MEDS: Aspirin Chewable 81 MG TAB PO SCH (09:57)
[2019-02-12] MEDS: Sodium Chloride 0.45% 1,000 ML IV SCH ×2 (09:59→20:06)
[2019-02-12] MEDS ORDERED: Bisacodyl 10 MG SUPP PR PRN (13:19)
--- NOTE | 2019-02-12 13:20 | PDOC.HOSPP ---
- Subjective Encounter Date: 02/12/19 Encounter Time: 12:40 Subjective: f/u for acute resp failure and CHF exacerbation. Remains on mech vent. Nursing reports high output from NGT. No BM documented but last BM time frame unclear. - Objective Vital Signs & Weight: Vital Signs (12 hours) Temp Pulse Resp BP Pulse Ox 02/12/19 10:47 73 114/73 02/12/19 10:00 20 02/12/19 08:00 20 02/12/19 07:42 90 166/72 H 02/12/19 06:00 20 02/12/19 04:00 98.2 F 20 02/12/19 02:40 79 20 97 02/12/19 02:00 20 Weight Admit Weight 163 lb 5.8 oz Weight 163 lb 2.273 oz Most Recent Monitor Data Heart Rate from ECG 79 NIBP 114/73 NIBP BP-Mean 86 Respiration from ECG 16 SpO2 97 I&O: 02/11/19 02/12/19 02/13/19 06:59 06:59 06:59 Intake Total 3138 2408 Output Total 1180 2720 1160 Balance 1958 -312 1160 Result Diagrams: 02/12/19 05:34 02/12/19 05:34 Additional Labs: Microbiology 09/15/18 19:06 Nasal swab Influenza Types A,B Direct EIA - Final 02/09/19 20:21 Venous blood - Right Hand Blood Culture - Preliminary Specimen has been received and culture in progress. No Growth to date. 02/09/19 20:21 Venous blood - Right Hand Blood Culture - Preliminary NO GROWTH AT 48 HOURS 02/09/19 20:16 Venous blood - Right Arm Blood Culture - Preliminary Specimen has been received and culture in progress. No Growth to date. 02/09/19 20:16 Venous blood - Right Arm Blood Culture - Preliminary NO GROWTH AT 48 HOURS 09/15/18 18:05 Venous blood - Right Arm Blood Culture - Preliminary Specimen has been received and culture in progress. No Growth to date. 09/15/18 18:05 Venous blood - Left Arm Blood Culture - Preliminary Specimen has been received and culture in progress. No Growth to date. Laboratory Tests 09/15/18 09/15/18 09/16/18 18:05 18:05 04:52 WBC 9.1 Neutrophils % 78.0 H Neutrophils % (Manual) 82 H Bicarbonate Actual ABG pH ABG pCO2 ABG pO2 ABG O2 Sat Calc/Froylan Potassium 5.3 H BUN Creatinine 1.64 H B-Natriuretic Peptide 12/29/18 01/08/19 01/10/19 08:41 00:39 04:53 WBC Neutrophils % Neutrophils % (Manual) Bicarbonate Actual ABG pH ABG pCO2 ABG pO2 ABG O2 Sat Calc/Froylan Potassium BUN Creatinine 0.76 B-Natriuretic Peptide 595.8 H 1067.1 H 02/09/19 02/09/19 02/09/19 17:41 17:41 17:41 WBC 11.7 H Neutrophils % 85.5 H Neutrophils % (Manual) Bicarbonate Actual ABG pH ABG pCO2 ABG pO2 ABG O2 Sat Calc/Froylan Potassium BUN Creatinine 0.91 B-Natriuretic Peptide 731.4 H 02/10/19 02/10/19 02/10/19 06:35 06:35 15:57 WBC 12.6 H Neutrophils % 82.3 H Neutrophils % (Manual) Bicarbonate Actual 29.8 H ABG pH 7.21 L* ABG pCO2 76.5 H* ABG pO2 51.0 L* ABG O2 Sat Calc/Froylan 80.0 L* Potassium BUN 34 H Creatinine 1.15 H B-Natriuretic Peptide 02/11/19 05:08 WBC Neutrophils % Neutrophils % (Manual) 78 H Bicarbonate Actual ABG pH ABG pCO2 ABG pO2 ABG O2 Sat Calc/Froylan Potassium BUN Creatinine B-Natriuretic Peptide Radiology Reviewed by me: Yes (PCXR - density in L lung base/effusion) EKG Reviewed by me: Yes (Tele - SR) Hospitalist ROS - Medication Medications: Active Medications Generic Name Dose Route Start Last Admin Trade Name Freq PRN Reason Stop Dose Admin Albuterol/Ipratropium 3 ml 02/10/19 18:30 02/12/19 10:27 Duoneb NEB 3 ml [id number] FEROZ Administration Aspirin 81 mg 02/10/19 09:00 02/12/19 09:57 Aspirin Chewable PO 81 mg DAILY FEROZ Administration Enoxaparin Sodium 40 mg 02/10/19 09:00 02/12/19 09:57 Lovenox SC 40 mg 0900 FEROZ Administration Furosemide 40 mg 02/10/19 06:00 02/12/19 05:30 Lasix SLOW IVP 40 mg 0600,1400 FEROZ Administration Fentanyl Citrate 2,000 mcg/ 100 mls @ 0 mls/hr 02/10/19 17:02 02/12/19 08:14 Sodium Chloride IV 03/12/19 17:02 100 mls INF FEROZ Administration Protocol Per Protocol Sodium Chloride 1,000 mls @ 100 mls/hr 02/10/19 17:15 02/12/19 09:59 1/2 Normal Saline IV 1,000 mls .Q10H FEROZ Administration Levothyroxine Sodium 75 mcg 02/10/19 06:00 02/12/19 05:31 Synthroid PO 75 mcg 0600 FEROZ Administration Methylprednisolone Sodium Succinate 20 mg 02/10/19 23:59 02/12/19 05:30 Solu-Medrol IVP 20 mg Q6HR FEROZ Administration - Exam General Appearance: awake alert General - other findings: Nods to questions and name, ETT in place Eye: PERRL, anicteric sclera ENT: normocephalic atraumatic, no oropharyngeal lesions Neck: supple, symmetric, no JVD, no thyromegaly Heart: RRR, no gallops, no rubs, normal peripheral pulses Respiratory: no wheezes Respiratory - other findings: diminished in bases, few basilar crackles Gastrointestinal: soft, non-tender, normal bowel sounds, no palpable masses Extremities: no cyanosis, no edema Skin: normal turgor, no lesions Neurological - other findings: opens eyes, tracks and moves extremities Musculoskeletal: normal tone Hosp A/P (1) Acute on chronic respiratory failure with hypoxia Code(s): J96.21 - ACUTE AND CHRONIC RESPIRATORY FAILURE WITH HYPOXIA Status: Acute Plan: Hypercapnia, continue pulmonary supportive mgmt, [facility] ventilation (2) Acute exacerbation of congestive heart failure Code(s): I50.9 - HEART FAILURE, UNSPECIFIED Status: Acute Qualifiers: Heart failure type: diastolic Qualified Code(s): I50.33 - Acute on chronic diastolic (congestive) heart failure Plan: Lasix 40mg IV BID, serial I/O's, daily weight (3) COPD exacerbation Code(s): J44.1 - CHRONIC OBSTRUCTIVE PULMONARY DISEASE W (ACUTE) EXACERBATION Status: Acute Plan: See above (4) Cor pulmonale Code(s): I27.81 - COR PULMONALE (CHRONIC) Status: Chronic (5) Tobacco abuse Code(s): Z72.0 - TOBACCO USE Status: Chronic (6) ALICIA (acute kidney injury) Code(s): N17.9 - ACUTE KIDNEY FAILURE, UNSPECIFIED Status: Acute Plan: Improved overall, avoid nephrotoxic meds and limit contrast exposure - Plan manager social, respiratory therapy, DVT proph w/SCDs Continue aggressive pulmonary support Continue Solumedrol IV Change Duonebs q4h Pulmonary/Critical care consult appreciated AM lab: CMP, CBC. ABG PCXR in am Palliative care consult
--- NOTE | 2019-02-12 15:32 | PRG ---
DATE OF SERVICE: 02/12/2019 SUBJECTIVE: Cassie Scott remains hemodynamically stable. OBJECTIVE: GENERAL: She is awake. She quickly responses to questions. VITAL SIGNS: Heart rate 84, blood pressure 105/72, respiratory rate is 18. LUNGS: Distant clear. HEART: Regular rhythm. ABDOMEN: She still has a loud 3/6 systolic murmur. ABDOMEN: Soft and nontender. EXTREMITIES: Without asymmetry. LABORATORY DATA: White count 12.5, hemoglobin 11.9, platelets 252. PH 7.48, CO2 41, PO2 83. Sodium 145, potassium 3.2, chloride 102, bicarb 28, BUN 58, creatinine 1.08. Intake and output, negative 312. IMPRESSION: 1. Respiratory failure. 2. Advanced chronic obstructive pulmonary disease. 3. History of patent ductus arteriosus, diagnosed as adult ?. This was not seen on transesophageal echocardiogram here. 4. Loud systolic murmur. 5. Pulmonary hypertension. 6. Respiratory failure. PLAN: Continue supportive care with slow decrease in ventilatory support anticipating weaning earlier mid-week. Job ID: [id number] [facility]
[2019-02-13] MEDS: methylPREDNISolone Sod Succ 40 MG VIAL IVP SCH ×5 (01:22→23:15)
[2019-02-13] MEDS: Lorazepam 2 MG/ML VIAL SLOW IVP PRN (03:34)
[2019-02-13] MEDS: Furosemide 40 MG/4 ML VIAL SLOW IVP SCH (05:05)
[2019-02-13] MEDS: Sodium Chloride 0.45% 1,000 ML IV SCH ×3 (05:05→19:30)
[2019-02-13] MEDS: Levothyroxine Sodium 75 MCG TAB PO SCH (05:06)
[2019-02-13 06:04] LABS: Anion Gap 17 mmol/L (10-20); BUN (Urea Nitrogen) 67 mg/dL (9.8-20.1); Calc. Creatinine Clearance 63 mL/min (70-130); Calcium 10.4 mg/dL (7.8-10.44); Carbon Dioxide 30 mmol/L (22-29); Chloride 100 mmol/L (98-107); Estimated GFR-MDRD 58; Glucose 124 mg/dL (70-105); Potassium 3.9 mmol/L (3.5-5.1); Sodium 143 mmol/L (136-145)
[2019-02-13 06:05] LABS: Hemoglobin 13.3 g/dL (12.0-16.0); Mean Corpuscular HGB CONC 29.9 g/dL (32.0-36.0); Mean Corpuscular Hemoglobin 26.3 pg (27.0-31.0); Mean Corpuscular Volume 88.2 fL (78.0-98.0); Mean Platelet Volume 10.8 fL (7.4-10.4); Platelet Count 258 thou/uL (130-400); RBC Distribution Width 18.1 % (11.5-14.5); Red Blood Cell (RBC) Count 5.03 mill/uL (4.20-5.40)
[2019-02-13 06:21] LABS: Band 4 % (5-11); Lymphocytes 1 % (21-51); MDiff Complete? YES; Monocytes 5 % (0-10); Neutrophil 90 % (42-75)
[2019-02-13 07:20] LABS: Actual Bicarbonate (HCO3a) 30.8 mEq/L (22-28); Base Excess (BEa) 4.2 mEq/L (-2.0 to +3.0); CO2 Tension 54.1 mmHg (35.0-45.0); Calcium, Ionized 1.34 mmol/L (1.12-1.30); Carboxyhemoglobin (COHb) 1.6 gm% (0.0-3.0); Hemoglobin (Hb) 13.8 g/dL (12.0-16.0); O2 Tension (PaO2) 81.9 mmHg (80.0-100.0); Potassium - ABG Lab 3.81 mmol/L (3.70-5.30); pH, Arterial 7.37 (7.35-7.45)
[2019-02-13 07:26] LABS: ALV-art Gradient 135.675 (0-20); Puncture Site LRA
--- NOTE | 2019-02-13 09:27 | RAD ---
CHEST 1 VIEW: HISTORY: Respiratory insufficiency. COMPARISON: 02/12/2019. FINDINGS: Stable-appearing cardiomegaly with bilateral vascular congestion and pleural and parenchymal opacity changes in the left base. IMPRESSION: Stable findings. Continued short-term followup. POS: JARROD
[2019-02-13] MEDS: Aspirin Chewable 81 MG TAB PO SCH (10:10)
[2019-02-13] MEDS: Enoxaparin Sodium 40 MG/0.4 ML SYRINGE SC SCH (10:10)
[2019-02-13] MEDS: fentaNYL Citrate/PF 2,000 MCG in Sodium Chloride 0.9% 60 ML IV SCH (10:31)
--- NOTE | 2019-02-13 12:54 | PRG ---
DATE OF SERVICE: 02/13/2019 TIME SPENT: 35 minutes of critical care time. SUBJECTIVE: The patient remains intubated on mechanical ventilation. She is sedated. OBJECTIVE: VITAL SIGNS: On exam, temperature is 97.5, pulse 89, blood pressure 109/73, and O2 saturation 96%. HEENT: Unremarkable. NECK: No adenopathy or JVD. LUNGS: Coarse rhonchi with wheezing bilaterally. CARDIAC: S1 and S2. Tachycardic. ABDOMEN: Soft and nontender. EXTREMITIES: No edema. LABORATORY DATA: Sodium 143, potassium 3.9, chloride 100, CO2 of 30, BUN 67, creatinine 1.1, and glucose 124. ABG, pH of 7.37, pCO2 of 54, pO2 of 81 on SIMV rate 12, tidal volume 500, PEEP 5, pressure support 10, and FiO2 of 40%. White blood cell count 12, hematocrit 44, and platelet count 258. IMAGING DATA: Chest x-ray demonstrates cardiomegaly. ET tube in good position. Fairly clear lung [place] bilaterally. ASSESSMENT: 1. Chronic obstructive pulmonary disease with exacerbation. 2. Acute respiratory failure requiring mechanical ventilation. 3. Pulmonary hypertension. 4. Prerenal azotemia. PLAN: 1. Stop diuretics. 2. Decrease IV fluids. 3. Initiate tube feeds. 4. May need some Reglan given elevated gastric residuals. 5. Continue steroids, nebulization treatments. Job ID: [id number]
[2019-02-13] MEDS ORDERED: Metoclopramide HCl 10 MG/2 ML VIAL IVP SCH (13:00)
--- NOTE | 2019-02-13 16:09 | PDOC.HOSPP ---
- Subjective Encounter Date: 02/13/19 Encounter Time: 14:00 Subjective: f/u for resp failure, COPD exacerbation/CHF on [facility] ventilation. Remains on [facility] vent per nursing. No BM and NGT with increased output. - Objective Vital Signs & Weight: Vital Signs (12 hours) Temp Pulse Resp BP Pulse Ox 02/13/19 14:47 89 99/69 02/13/19 14:46 83 12 97 02/13/19 14:00 12 02/13/19 12:00 97.5 F L 12 02/13/19 10:44 77 97/69 02/13/19 10:42 77 12 97 02/13/19 10:00 12 02/13/19 08:00 97.5 F L 12 93 L 02/13/19 07:05 79 103/79 02/13/19 07:03 80 12 97 02/13/19 06:00 12 Weight Admit Weight 163 lb 5.8 oz Weight 165 lb 9.074 oz Most Recent Monitor Data Heart Rate from ECG 86 NIBP 110/75 NIBP BP-Mean 86 Respiration from ECG 12 SpO2 100 I&O: 02/12/19 02/13/19 02/14/19 06:59 06:59 06:59 Intake Total 2408 2486 Output Total 2720 2084 310 Balance -312 402 -310 Result Diagrams: 02/13/19 04:56 02/13/19 04:56 Additional Labs: Microbiology 09/15/18 19:06 Nasal swab Influenza Types A,B Direct EIA - Final 02/09/19 20:21 Venous blood - Right Hand Blood Culture - Preliminary Specimen has been received and culture in progress. No Growth to date. 02/09/19 20:21 Venous blood - Right Hand Blood Culture - Preliminary NO GROWTH AT 48 HOURS 02/09/19 20:16 Venous blood - Right Arm Blood Culture - Preliminary Specimen has been received and culture in progress. No Growth to date. 02/09/19 20:16 Venous blood - Right Arm Blood Culture - Preliminary NO GROWTH AT 48 HOURS 09/15/18 18:05 Venous blood - Right Arm Blood Culture - Preliminary Specimen has been received and culture in progress. No Growth to date. 09/15/18 18:05 Venous blood - Left Arm Blood Culture - Preliminary Specimen has been received and culture in progress. No Growth to date. Laboratory Tests 09/15/18 09/15/18 09/16/18 18:05 18:05 04:52 WBC 9.1 Neutrophils % 78.0 H Neutrophils % (Manual) 82 H Bicarbonate Actual ABG pH ABG pCO2 ABG pO2 ABG O2 Sat Calc/Froylan Potassium 5.3 H BUN Creatinine 1.64 H B-Natriuretic Peptide 12/29/18 01/08/19 01/10/19 08:41 00:39 04:53 WBC Neutrophils % Neutrophils % (Manual) Bicarbonate Actual ABG pH ABG pCO2 ABG pO2 ABG O2 Sat Calc/Froylan Potassium BUN Creatinine 0.76 B-Natriuretic Peptide 595.8 H 1067.1 H 02/09/19 02/09/19 02/09/19 17:41 17:41 17:41 WBC 11.7 H Neutrophils % 85.5 H Neutrophils % (Manual) Bicarbonate Actual ABG pH ABG pCO2 ABG pO2 ABG O2 Sat Calc/Froylan Potassium BUN Creatinine 0.91 B-Natriuretic Peptide 731.4 H 02/10/19 02/10/19 02/10/19 06:35 06:35 15:57 WBC 12.6 H Neutrophils % 82.3 H Neutrophils % (Manual) Bicarbonate Actual 29.8 H ABG pH 7.21 L* ABG pCO2 76.5 H* ABG pO2 51.0 L* ABG O2 Sat Calc/Froylan 80.0 L* Potassium BUN 34 H Creatinine 1.15 H B-Natriuretic Peptide 02/11/19 02/11/19 02/12/19 05:08 05:08 05:34 WBC Neutrophils % Neutrophils % (Manual) 78 H Bicarbonate Actual ABG pH ABG pCO2 ABG pO2 ABG O2 Sat Calc/Froylan Potassium 3.2 L BUN 53 H 58 H Creatinine 1.62 H 1.08 B-Natriuretic Peptide Radiology Reviewed by me: Yes (PCXR - bilat pulm vasc prominence LLL, lines/ tubes in place) EKG Reviewed by me: Yes (Tele - SR) Hospitalist ROS - Medication Medications: Active Medications Generic Name Dose Route Start Last Admin Trade Name Freq PRN Reason Stop Dose Admin Albuterol/Ipratropium 3 ml 02/10/19 18:30 02/13/19 14:46 Duoneb NEB 3 ml [id number] FEROZ Administration Aspirin 81 mg 02/10/19 09:00 02/13/19 10:10 Aspirin Chewable PO 81 mg DAILY FEROZ Administration Enoxaparin Sodium 40 mg 02/10/19 09:00 02/13/19 10:10 Lovenox SC 40 mg 0900 FEROZ Administration Fentanyl Citrate 2,000 mcg/ 100 mls @ 0 mls/hr 02/10/19 17:02 02/13/19 10:31 Sodium Chloride IV 03/12/19 17:02 100 mls INF FEROZ Administration Protocol Per Protocol Sodium Chloride 1,000 mls @ 70 mls/hr 02/13/19 12:41 02/13/19 13:17 1/2 Normal Saline IV Not Given .[id number] FEROZ Levothyroxine Sodium 75 mcg 02/10/19 06:00 02/13/19 05:06 Synthroid PO 75 mcg 0600 FEROZ Administration Lorazepam 2 mg 02/10/19 17:02 02/13/19 03:34 Ativan SLOW IVP 03/12/19 17:02 2 mg Q1H PRN Administration Breakthrough agitation Methylprednisolone Sodium Succinate 20 mg 02/10/19 23:59 02/13/19 12:08 Solu-Medrol IVP 20 mg Q6HR FEROZ Administration - Exam General - other findings: sedate on mech ventilation Eye: PERRL ENT: normocephalic atraumatic, no oropharyngeal lesions ENT - other findings: ETT in place Neck: supple, symmetric, no JVD, no thyromegaly Heart: RRR, no gallops, no rubs, normal peripheral pulses Heart - other findings: S1, S2 Respiratory - other findings: coarse sounds bilat, diminished in bases, prolonged exp phase Gastrointestinal: no palpable masses, diminished bowl sounds Gastrointestinal - other findings: mild distention Extremities: no cyanosis, no edema Neurological - other findings: sedate on mech vent Hosp A/P (1) Acute on chronic respiratory failure with hypoxia Code(s): J96.21 - ACUTE AND CHRONIC RESPIRATORY FAILURE WITH HYPOXIA Status: Acute Plan: Continue mech ventilation, Duonebs, Solumedrol (2) Acute exacerbation of congestive heart failure Code(s): I50.9 - HEART FAILURE, UNSPECIFIED Status: Acute Qualifiers: Heart failure type: diastolic Qualified Code(s): I50.33 - Acute on chronic diastolic (congestive) heart failure Plan: Stabilizing, continue supportive mgmt, Lasix held (3) COPD exacerbation Code(s): J44.1 - CHRONIC OBSTRUCTIVE PULMONARY DISEASE W (ACUTE) EXACERBATION Status: Acute Plan: Add Levaquin, Dulera INH BID, Duonebs, Solumedrol (4) Cor pulmonale Code(s): I27.81 - COR PULMONALE (CHRONIC) Status: Chronic (5) Tobacco abuse Code(s): Z72.0 - TOBACCO USE Status: Chronic (6) ALICIA (acute kidney injury) Code(s): N17.9 - ACUTE KIDNEY FAILURE, UNSPECIFIED Status: Acute Plan: Improved, limit nephrotoxic meds and contrast exposure - Plan continue antibiotics, social worker assistant, respiratory therapy, DVT proph w/SCDs Continue aggressive pulmonary support Continue Solumedrol IV Change Duonebs q4h Pulmonary/Critical care consult appreciated AM lab: CMP, CBC. ABG PCXR in am Palliative care consult Add Levaquin 500mg IV daily Add Dulera 2puffs BID
[2019-02-13] MEDS: Metoclopramide HCl 10 MG/2 ML VIAL IVP SCH ×2 (17:16→23:15)
[2019-02-13] MEDS: Mometasone/Formoterol 120 PUFF INHALER INH SCH (18:15)
[2019-02-14 04:20] LABS: Anion Gap 14 mmol/L (10-20); BUN (Urea Nitrogen) 86 mg/dL (9.8-20.1); Calc. Creatinine Clearance 50 mL/min (70-130); Calcium 10.6 mg/dL (7.8-10.44); Carbon Dioxide 31 mmol/L (22-29); Chloride 100 mmol/L (98-107); Estimated GFR-MDRD 44; Glucose 136 mg/dL (70-105); Potassium 4.3 mmol/L (3.5-5.1); Sodium 141 mmol/L (136-145)
[2019-02-14 04:34] LABS: Band 11 % (5-11); Hemoglobin 13.4 g/dL (12.0-16.0); Lymphocytes 1 % (21-51); MDiff Complete? YES; Mean Corpuscular HGB CONC 30.1 g/dL (32.0-36.0); Mean Corpuscular Hemoglobin 26.2 pg (27.0-31.0); Mean Platelet Volume 10.7 fL (7.4-10.4); Monocytes 3 % (0-10); Neutrophil 85 % (42-75); Platelet Count 249 thou/uL (130-400); RBC Distribution Width 18.1 % (11.5-14.5); Red Blood Cell (RBC) Count 5.13 mill/uL (4.20-5.40); White Blood Cell (WBC) Count 11.2 thou/uL (4.8-10.8)
[2019-02-14] MEDS: fentaNYL Citrate/PF 2,000 MCG in Sodium Chloride 0.9% 60 ML IV SCH ×2 (05:17→19:30)
[2019-02-14] MEDS: Levothyroxine Sodium 75 MCG TAB PO SCH (05:21)
[2019-02-14] MEDS: Metoclopramide HCl 10 MG/2 ML VIAL IVP SCH ×3 (05:21→18:11)
[2019-02-14] MEDS: methylPREDNISolone Sod Succ 40 MG VIAL IVP SCH ×3 (05:21→18:11)
[2019-02-14] MEDS: Sodium Chloride 0.45% 1,000 ML IV SCH ×2 (05:26→18:07)
[2019-02-14] MEDS: Mometasone/Formoterol 120 PUFF INHALER INH SCH ×2 (07:58→18:33)
[2019-02-14 08:30] LABS: Calcium, Ionized 1.32 mmol/L (1.12-1.30); Carboxyhemoglobin (COHb) 1.4 gm% (0.0-3.0); Hemoglobin (Hb) 14.2 g/dL (12.0-16.0); O2 Tension (PaO2) 87.4 mmHg (80.0-100.0); Potassium - ABG Lab 4.13 mmol/L (3.70-5.30); pH, Arterial 7.32 (7.35-7.45)
[2019-02-14 08:38] LABS: CO2 Tension 62.9 mmHg (35.0-45.0); Puncture Site LRA
[2019-02-14 08:39] LABS: ALV-art Gradient 190.475 (0-20)
[2019-02-14] MEDS: Enoxaparin Sodium 40 MG/0.4 ML SYRINGE SC SCH (09:20)
[2019-02-14] MEDS: Aspirin Chewable 81 MG TAB PO SCH (09:20)
--- NOTE | 2019-02-14 09:29 | OP ---
DATE OF PROCEDURE: 02/10/2019 PROCEDURE: Intubation. DESCRIPTION OF PROCEDURE: Ms. Scott was transferred to critical care unit. A bite block was placed in her mouth. Throat was sprayed with Hurricaine spray. Disposable bronchoscope was set up at the bedside. A 7.5 endotracheal tube was inserted over the bronchoscope. Her vocal cords were visualized, and her glottis was entered. Copious tracheal secretions were encountered and suctioned clear. The endotracheal tube was advanced and secured above the main hosea. Bilateral equal breath sounds were noted. Chest radiograph shows massive cardiomegaly, but no new infiltrates. No endobronchial lesions were seen on inspection of the tracheobronchial tree. She tolerated intubation well. She was sedated with 2 of Versed once she was intubated, then 2 of Ativan and then will be placed on sedation protocol. Job ID: [id number]
--- NOTE | 2019-02-14 10:25 | RAD ---
PORTABLE CHEST: HISTORY: Respiratory distress. COMPARISON: 02/13/2019 FINDINGS: Endotracheal and NG tubes are in satisfactory position. Heart size is enlarged. There are atheroscl erotic changes of the aorta. Retrocardiac density and right basilar density is all stable, as compar ed to the prior exam. POS: OFF
[2019-02-14] MEDS: Lorazepam 2 MG/ML VIAL SLOW IVP PRN (13:35)
--- NOTE | 2019-02-14 13:38 | PRG ---
DATE OF SERVICE: 02/14/2019 SUBJECTIVE: Ms. Scott unfortunately was readmitted over the weekend. She developed shortness of breath. In the past, she has had cor pulmonale with severe pulmonary hypertension in addition to severe tricuspid regurgitation. She likely has a diagnosis of severe obstructive sleep apnea, but has not been compliant with sleep study. She also continues to smoke. She is currently intubated and sedated. The history is limited. OBJECTIVE: GENERAL: Patient is a pleasant female who is currently intubated and sedated. The patient appears their stated age. VITAL SIGNS: Blood pressure 105/68, pulse 92, temperature afebrile. NEUROLOGIC: The patient is alert and oriented x3 with no focal neurologic deficits. HEENT: Sclerae without icterus. Mouth has moist mucous membranes with normal pallor. NECK: No JVD. Carotid upstroke brisk. No bruits bilaterally. LUNGS: Clear to auscultation with unlabored respirations. BACK: No scoliosis or kyphosis. CARDIAC: Regular rate and rhythm with normal S1 and S2. No S3 or S4 noted. No significant rubs, murmurs, thrills, or gallops noted throughout the precordium. PMI is not displaced. There is no parasternal heave. ABDOMEN: Soft, nontender, nondistended. No peritoneal signs present. No hepatosplenomegaly. No abnormal striae. EXTREMITIES: 2+ femoral and 2+ dorsalis pedis pulses. No cyanosis, clubbing. 3+ pitting edema bilaterally. SKIN: No gross abnormalities. PERTINENT LABORATORY DATA: Include a hemoglobin of 13.4, white blood cell count 11.2, creatinine 1.49 with a GFR 49. IMPRESSION: 1. Severe cor pulmonale. 2. Likely sleep apnea. 3. Continued tobacco abuse. RECOMMENDATIONS: 1. Continue vent support per Pulmonary. 2. Hold diuresis. 3. We will try and seek the family to discuss the patient's prognosis. Unfortunately, the patient has had multiple hospitalizations in the past with limited family noted. She is currently otherwise hemodynamically stable. Prognosis does appear poor. Job ID: [id number]
--- NOTE | 2019-02-14 16:36 | PRG ---
DATE OF SERVICE: 02/14/2019 SUBJECTIVE: Cassie Scott remains stable. Decreased ventilatory support. OBJECTIVE: VITAL SIGNS: Heart rate is 88, blood pressure is 100/68, respiratory rate is in the teens. LUNGS: Remarkable for equal breath sounds. HEART: Regular rhythm. S1 and S2 are normal. There is loud 3/6 systolic murmur present. ABDOMEN: Soft and nontender. EXTREMITIES: Without asymmetry. LABORATORY DATA: White count 11.2, hemoglobin 13.4, platelets 249. Sodium 141, potassium 4.3, chloride 100, bicarb 31, BUN 86, creatinine 1.49. PH of 7.32, CO2 of 62, pO2 of 87. IMPRESSION: 1. Severe chronic obstructive pulmonary disease. 2. Pulmonary hypertension. 3. Decreased her ventilatory rate to a rate of 8. Hopefully, she will compensate. If not, then we will have to consider a tracheostomy to facilitate weaning, if family would want this. Prognosis was felt to be guarded last time she was in the hospital and still is extremely guarded. CRITICAL CARE TIME: 30 minutes. Job ID: [id number]
--- NOTE | 2019-02-14 17:40 | PDOC.HOSPP ---
- Subjective Encounter Date: 02/14/19 Encounter Time: 15:35 Subjective: f/u for resp failure with end-stage COPD on [facility] ventilation. Unweanable currently. - Objective Vital Signs & Weight: Vital Signs (12 hours) Temp Pulse Resp BP Pulse Ox 02/14/19 16:00 12 02/14/19 14:13 89 100/68 02/14/19 14:12 70 12 93 L 02/14/19 14:00 12 02/14/19 12:00 98.9 F 12 02/14/19 10:53 84 109/75 02/14/19 10:52 88 12 97 02/14/19 10:00 12 02/14/19 08:00 98.0 F 12 02/14/19 07:53 94 101/70 02/14/19 07:51 106 H 16 96 02/14/19 06:00 12 Weight Admit Weight 163 lb 5.8 oz Weight 167 lb 1.766 oz Most Recent Monitor Data Heart Rate from ECG 78 NIBP 101/65 NIBP BP-Mean 77 Respiration from ECG 11 SpO2 98 I&O: 02/13/19 02/14/19 02/15/19 06:59 06:59 06:59 Intake Total 2486 2465.7 220 Output Total 2084 775 855 Balance 402 1690.7 -635 Result Diagrams: 02/14/19 03:36 02/14/19 03:36 Additional Labs: Microbiology 09/15/18 19:06 Nasal swab Influenza Types A,B Direct EIA - Final 02/09/19 20:21 Venous blood - Right Hand Blood Culture - Preliminary Specimen has been received and culture in progress. No Growth to date. 02/09/19 20:21 Venous blood - Right Hand Blood Culture - Preliminary NO GROWTH AT 48 HOURS 02/09/19 20:16 Venous blood - Right Arm Blood Culture - Preliminary Specimen has been received and culture in progress. No Growth to date. 02/09/19 20:16 Venous blood - Right Arm Blood Culture - Preliminary NO GROWTH AT 48 HOURS 09/15/18 18:05 Venous blood - Right Arm Blood Culture - Preliminary Specimen has been received and culture in progress. No Growth to date. 09/15/18 18:05 Venous blood - Left Arm Blood Culture - Preliminary Specimen has been received and culture in progress. No Growth to date. Laboratory Tests 09/15/18 09/15/18 09/16/18 18:05 18:05 04:52 WBC 9.1 Neutrophils % 78.0 H Neutrophils % (Manual) 82 H Bicarbonate Actual ABG pH ABG pCO2 ABG pO2 ABG O2 Sat Calc/Froylan Potassium 5.3 H BUN Creatinine 1.64 H B-Natriuretic Peptide 12/29/18 01/08/19 01/10/19 08:41 00:39 04:53 WBC Neutrophils % Neutrophils % (Manual) Bicarbonate Actual ABG pH ABG pCO2 ABG pO2 ABG O2 Sat Calc/Froylan Potassium BUN Creatinine 0.76 B-Natriuretic Peptide 595.8 H 1067.1 H 02/09/19 02/09/19 02/09/19 17:41 17:41 17:41 WBC 11.7 H Neutrophils % 85.5 H Neutrophils % (Manual) Bicarbonate Actual ABG pH ABG pCO2 ABG pO2 ABG O2 Sat Calc/Froylan Potassium BUN Creatinine 0.91 B-Natriuretic Peptide 731.4 H 02/10/19 02/10/19 02/10/19 06:35 06:35 15:57 WBC 12.6 H Neutrophils % 82.3 H Neutrophils % (Manual) Bicarbonate Actual 29.8 H ABG pH 7.21 L* ABG pCO2 76.5 H* ABG pO2 51.0 L* ABG O2 Sat Calc/Froylan 80.0 L* Potassium BUN 34 H Creatinine 1.15 H B-Natriuretic Peptide 02/11/19 02/11/19 02/12/19 05:08 05:08 05:34 WBC Neutrophils % Neutrophils % (Manual) 78 H Bicarbonate Actual ABG pH ABG pCO2 ABG pO2 ABG O2 Sat Calc/Froylan Potassium 3.2 L BUN 53 H 58 H Creatinine 1.62 H 1.08 B-Natriuretic Peptide Radiology Reviewed by me: Yes (PCXR - lines/tubes in place, stable RLL density) EKG Reviewed by me: Yes (Tele - SR) Hospitalist ROS - Medication Medications: Active Medications Generic Name Dose Route Start Last Admin Trade Name Freq PRN Reason Stop Dose Admin Albuterol/Ipratropium 3 ml 02/10/19 18:30 02/14/19 14:12 Duoneb NEB 3 ml [id number] FEROZ Administration Aspirin 81 mg 02/10/19 09:00 02/14/19 09:20 Aspirin Chewable PO 81 mg DAILY FEROZ Administration Enoxaparin Sodium 40 mg 02/10/19 09:00 02/14/19 09:20 Lovenox SC 40 mg 0900 FEROZ Administration Fentanyl Citrate 2,000 mcg/ 100 mls @ 0 mls/hr 02/10/19 17:02 02/14/19 05:17 Sodium Chloride IV 03/12/19 17:02 100 mls INF FEROZ Administration Protocol Per Protocol Sodium Chloride 1,000 mls @ 70 mls/hr 02/13/19 12:41 02/14/19 05:26 1/2 Normal Saline IV Not Given .[id number] FEROZ Levofloxacin 500 mg/ Device 100 mls @ 100 mls/hr 02/13/19 17:00 02/13/19 17: 16 IVPB 100 mls Q24HR FEROZ Administration Levothyroxine Sodium 75 mcg 02/10/19 06:00 02/14/19 05:21 Synthroid PO 75 mcg 0600 FEROZ Administration Lorazepam 2 mg 02/10/19 17:02 02/14/19 13:35 Ativan SLOW IVP 03/12/19 17:02 2 mg Q1H PRN Administration Breakthrough agitation Methylprednisolone Sodium Succinate 20 mg 02/10/19 23:59 02/14/19 12:23 Solu-Medrol IVP 20 mg Q6HR FEROZ Administration Metoclopramide HCl 10 mg 02/13/19 18:00 02/14/19 12:23 Reglan IVP 10 mg Q6HR FEROZ Administration Mometasone Furoate/Formoterol Fumar 2 puff 02/13/19 18:30 02/14/19 07:58 Dulera 200 Mcg/5 Mcg Inhaler INH 2 puff BID-RT FEROZ Administration - Exam General Appearance: ill appearing General - other findings: sedate on mech vent Eye: PERRL ENT: normocephalic atraumatic, no oropharyngeal lesions Neck: supple, symmetric, no JVD, no thyromegaly Heart: RRR, no gallops, no rubs, normal peripheral pulses Heart - other findings: S1, S2 Respiratory - other findings: scattered coarse sounds bilat, diminished in bases Gastrointestinal: soft, non-distended, normal bowel sounds, no hepatomegaly Extremities: no cyanosis, no edema Skin: normal turgor Psychiatric: somnolent, lethargic Hosp A/P (1) Acute on chronic respiratory failure with hypoxia Code(s): J96.21 - ACUTE AND CHRONIC RESPIRATORY FAILURE WITH HYPOXIA Status: Acute Plan: Unweanable and likely will need [facility] trach, continue [facility] ventilation, pulmonary supportive mgmt (2) COPD exacerbation Code(s): J44.1 - CHRONIC OBSTRUCTIVE PULMONARY DISEASE W (ACUTE) EXACERBATION Status: Acute Plan: Persistent, end-stage process, see above (3) Acute exacerbation of congestive heart failure Code(s): I50.9 - HEART FAILURE, UNSPECIFIED Status: Acute Qualifiers: Heart failure type: diastolic Qualified Code(s): I50.33 - Acute on chronic diastolic (congestive) heart failure (4) Cor pulmonale Code(s): I27.81 - COR PULMONALE (CHRONIC) Status: Chronic (5) Tobacco abuse Code(s): Z72.0 - TOBACCO USE Status: Chronic (6) ALICIA (acute kidney injury) Code(s): N17.9 - ACUTE KIDNEY FAILURE, UNSPECIFIED Status: Acute - Plan PT/OT, social director, respiratory therapy, DVT proph w/SCDs Continue aggressive pulmonary support Continue Solumedrol IV Change Duonebs q4h Pulmonary/Critical care consult appreciated AM lab: CMP, CBC. ABG PCXR in am Palliative care consult Add Levaquin 500mg IV daily Add Dulera 2puffs BID
[2019-02-15] MEDS: Metoclopramide HCl 10 MG/2 ML VIAL IVP SCH ×4 (00:25→18:23)
[2019-02-15] MEDS: methylPREDNISolone Sod Succ 40 MG VIAL IVP SCH ×4 (00:25→18:22)
[2019-02-15] MEDS: Levothyroxine Sodium 75 MCG TAB PO SCH (05:38)
[2019-02-15 06:57] LABS: Hemoglobin 13.7 g/dL (12.0-16.0); Mean Corpuscular HGB CONC 29.4 g/dL (32.0-36.0); Mean Corpuscular Hemoglobin 25.9 pg (27.0-31.0); Mean Corpuscular Volume 88.2 fL (78.0-98.0); Mean Platelet Volume 10.8 fL (7.4-10.4); Platelet Count 250 thou/uL (130-400); White Blood Cell (WBC) Count 12.4 thou/uL (4.8-10.8)
[2019-02-15 07:13] LABS: Anion Gap 12 mmol/L (10-20); BUN (Urea Nitrogen) 79 mg/dL (9.8-20.1); Calc. Creatinine Clearance 61 mL/min (70-130); Calcium 10.2 mg/dL (7.8-10.44); Carbon Dioxide 31 mmol/L (22-29); Chloride 100 mmol/L (98-107); Estimated GFR-MDRD 55; Glucose 186 mg/dL (70-105); Potassium 4.4 mmol/L (3.5-5.1); Sodium 139 mmol/L (136-145)
[2019-02-15] MEDS: Mometasone/Formoterol 120 PUFF INHALER INH SCH ×2 (07:57→18:24)
[2019-02-15 08:09] LABS: Actual Bicarbonate (HCO3a) 31.5 mEq/L (22-28); Base Excess (BEa) 3.6 mEq/L (-2.0 to +3.0); Calcium, Ionized 1.39 mmol/L (1.12-1.30); Carboxyhemoglobin (COHb) 1.9 gm% (0.0-3.0); Hemoglobin (Hb) 13.9 g/dL (12.0-16.0); O2 Tension (PaO2) 76.7 mmHg (80.0-100.0); pH, Arterial 7.32 (7.35-7.45)
[2019-02-15 08:10] LABS: ALV-art Gradient 165.525 (0-20); CO2 Tension 62.9 mmHg (35.0-45.0); Puncture Site RR
[2019-02-15 08:17] LABS: Lymphocytes 5 % (21-51); MDiff Complete? YES; Monocytes 2 % (0-10); Neutrophil 93 % (42-75); Platelet Morphology Comment Appears Adequate; Polychromasia SLIGHT = 2-3 cells (100X) (0-2/hpf)
--- NOTE | 2019-02-15 08:37 | RAD ---
PORTABLE CHEST ONE VIEW: HISTORY: Respiratory insufficiency. COMPARISON: 02/14/2019 FINDINGS: Stable life support tubes. Cardiomegaly with vascular congestion and increased markings, particularl y in the bases, with some pleural effusion changes, worse on the left side. IMPRESSION: Pleural and parenchymal changes bilaterally with cardiomegaly, stable. Continued short-term followup. POS: JARROD
[2019-02-15] MEDS: Aspirin Chewable 81 MG TAB PO SCH (09:44)
[2019-02-15] MEDS: Enoxaparin Sodium 40 MG/0.4 ML SYRINGE SC SCH (09:44)
[2019-02-15] MEDS: Sodium Chloride 0.45% 1,000 ML IV SCH (09:45)
[2019-02-15 15:06] VITALS: BMI 26.8
--- NOTE | 2019-02-15 15:15 | PDOC.HOSPP ---
- Subjective Encounter Date: 02/15/19 Encounter Time: 14:30 Subjective: f/u for resp failure/COPD exacerbation and CHF on mech vent. Unweanable currently on FIO2 45%. - Objective Vital Signs & Weight: Vital Signs (12 hours) Temp Pulse Resp BP 02/15/19 13:42 107 H 114/75 02/15/19 13:00 98.8 F 02/15/19 12:00 13 02/15/19 11:35 109 H 108/69 02/15/19 11:18 101 H 112/73 02/15/19 10:00 12 02/15/19 08:00 98.8 F 10 L 02/15/19 07:58 92 105/76 02/15/19 06:00 10 L 02/15/19 04:00 98.7 F 10 L Weight Admit Weight 163 lb 5.8 oz Weight 166 lb 0.129 oz Most Recent Monitor Data Heart Rate from ECG 107 NIBP 114/75 NIBP BP-Mean 88 Respiration from ECG 16 SpO2 98 I&O: 02/14/19 02/15/19 02/16/19 06:59 06:59 06:59 Intake Total 2465.7 2092 180 Output Total 775 1945 380 Balance 1690.7 147 -200 Result Diagrams: 02/15/19 06:29 02/15/19 06:29 Additional Labs: Microbiology 02/09/19 20:21 Venous blood - Right Hand Blood Culture - Final NO GROWTH IN 5 DAYS 02/09/19 20:16 Venous blood - Right Arm Blood Culture - Final NO GROWTH IN 5 DAYS Laboratory Tests 02/10/19 02/11/19 02/12/19 06:35 05:08 05:34 Creatinine 1.15 H 1.62 H 1.08 02/13/19 02/14/19 04:56 03:36 Creatinine 1.16 H 1.49 H Radiology Reviewed by me: Yes (PCXR - chronic changes, lines/tubes in place, vasc prominence) EKG Reviewed by me: Yes (Tele - SR) Hospitalist ROS - Medication Medications: Active Medications Generic Name Dose Route Start Last Admin Trade Name Freq PRN Reason Stop Dose Admin Albuterol/Ipratropium 3 ml 02/10/19 18:30 02/15/19 14:17 Duoneb NEB 3 ml [id number] FEROZ Administration Aspirin 81 mg 02/10/19 09:00 02/15/19 09:44 Aspirin Chewable PO 81 mg DAILY FEROZ Administration Enoxaparin Sodium 40 mg 02/10/19 09:00 02/15/19 09:44 Lovenox SC 40 mg 0900 FEROZ Administration Sodium Chloride 1,000 mls @ 70 mls/hr 02/13/19 12:41 02/15/19 09:45 1/2 Normal Saline IV Not Given .[id number] FEROZ Levofloxacin 500 mg/ Device 100 mls @ 100 mls/hr 02/13/19 17:00 02/14/19 18: 11 IVPB 100 mls Q24HR FEROZ Administration Dexmedetomidine HCl 200 mcg/ 50 mls @ 0 mls/hr 02/15/19 09:45 02/15/19 10:49 Sodium Chloride IVPB 50 mls INF FEROZ Administration Protocol Per Protocol Levothyroxine Sodium 75 mcg 02/10/19 06:00 02/15/19 05:38 Synthroid PO 75 mcg 0600 FEROZ Administration Methylprednisolone Sodium Succinate 20 mg 02/10/19 23:59 02/15/19 11:51 Solu-Medrol IVP 20 mg Q6HR FEROZ Administration Metoclopramide HCl 10 mg 02/13/19 18:00 02/15/19 11:51 Reglan IVP 10 mg Q6HR FEROZ Administration Mometasone Furoate/Formoterol Fumar 2 puff 02/13/19 18:30 02/15/19 07:57 Dulera 200 Mcg/5 Mcg Inhaler INH 2 puff BID-RT FEROZ Administration - Exam General - other findings: sedate on mech vent Eye: PERRL ENT: normocephalic atraumatic, no oropharyngeal lesions ENT - other findings: ETT in place Neck: supple, symmetric, no JVD, no thyromegaly, no lymphadenopathy Heart: RRR, no gallops, no rubs, normal peripheral pulses Respiratory - other findings: diminished in bases, prolonged exp phase, few scattered coarse sounds Gastrointestinal: soft, non-distended, normal bowel sounds, no guarding Extremities: no cyanosis, no clubbing, 1+ LE edema Skin: normal turgor Neurological - other findings: sedate on mech vent Psychiatric: somnolent, lethargic Hosp A/P (1) Acute on chronic respiratory failure with hypoxia Code(s): J96.21 - ACUTE AND CHRONIC RESPIRATORY FAILURE WITH HYPOXIA Status: Acute Plan: Continue [facility] ventilation, likely unweanable (2) COPD exacerbation Code(s): J44.1 - CHRONIC OBSTRUCTIVE PULMONARY DISEASE W (ACUTE) EXACERBATION Status: Acute Plan: Continue mech vent, Duonebs, Solumedrol, Dulera, Levaquin (3) Acute exacerbation of congestive heart failure Code(s): I50.9 - HEART FAILURE, UNSPECIFIED Status: Acute Qualifiers: Heart failure type: diastolic Qualified Code(s): I50.33 - Acute on chronic diastolic (congestive) heart failure (4) Cor pulmonale Code(s): I27.81 - COR PULMONALE (CHRONIC) Status: Chronic (5) Tobacco abuse Code(s): Z72.0 - TOBACCO USE Status: Chronic (6) ALICIA (acute kidney injury) Code(s): N17.9 - ACUTE KIDNEY FAILURE, UNSPECIFIED Status: Acute - Plan continue antibiotics, social media senior associate, respiratory therapy, DVT proph w/SCDs Consults: Palliative Care Continue aggressive pulmonary support, may need tracheostomy Continue Solumedrol IV Duonebs q4h Pulmonary/Critical care consult appreciated AM lab: CMP, CBC. ABG PCXR in am Palliative care consult Levaquin 500mg IV daily Dulera 2puffs BID
--- NOTE | 2019-02-15 17:47 | PRG ---
DATE OF SERVICE: 02/15/2019 SUBJECTIVE: Csasie Scott is in no distress. She will awaken when sedation is decreased. OBJECTIVE: VITAL SIGNS: Blood pressure 110/76, heart rate is 87, and respiratory rate is 18. LUNGS: Distant clear. She does have a prolonged expiratory phase. HEART: Regular rate and rhythm. ABDOMEN: Soft. EXTREMITIES: Without edema. NEUROLOGIC: Nonfocal. I have recommended that we try to decrease sedation as most as possible to hopefully facilitate weaning without a tracheostomy. LABORATORY DATA: Sodium 139, potassium 4.4, chloride 100, bicarb 31, BUN 79, and creatinine 1.23. The pH 7.32, CO2 of 62, and PO2 of 76. White count 12.4, hemoglobin 13.7, and platelets 250. IMPRESSION: 1. Respiratory failure with hypoxemia and hypercarbia, acute. 2. Advanced chronic obstructive pulmonary disease. 3. Pulmonary hypertension. 4. History of ? patent ductus arteriosus, not seen on transesophageal echo. She presented obtunded and was on noninvasive ventilation for over 25 hours and then improved, so she was intubated. This is most likely all secondary to chronic obstructive pulmonary disease exacerbation and ongoing tobacco use. We will proceed to try to wean her without a tracheostomy, but that may end up being necessary unfortunately. Critical care time is 35 minutes. Job ID: [id number] MTDD
[2019-02-16] MEDS: methylPREDNISolone Sod Succ 40 MG VIAL IVP SCH ×5 (00:14→23:55)
[2019-02-16] MEDS: Metoclopramide HCl 10 MG/2 ML VIAL IVP SCH ×5 (00:14→23:55)
[2019-02-16] MEDS: Sodium Chloride 0.45% 1,000 ML IV SCH ×2 (06:11)
--- NOTE | 2019-02-16 06:26 | PRG ---
DATE OF SERVICE: 02/15/2019 SUBJECTIVE: Ms. West continues to be intubated. She does awaken to voice. OBJECTIVE: VITAL SIGNS: Blood pressure 123/76, pulse 98, temperature afebrile. LUNGS: Clear to auscultation. HEART: Regular rate and rhythm. ABDOMEN: Soft, nontender, protuberant. EXTREMITIES: 2+ pitting edema. PERTINENT LABS: 02/15/2019; hemoglobin 13.7, creatinine 1.23 with a GFR 55. IMPRESSION: 1. Severe pulmonary hypertension. 2. Right ventricular failure. 3. Severe tricuspid regurgitation. 4. Likely obstructive sleep apnea. 5. Continued tobacco abuse. RECOMMENDATIONS: At this point, Ms. West continues to have readmissions for similar issues. Her symptoms continue to worsen slowly over time. I have discussed with Ms. West in the past on evaluation in [place]. She has declined. She has also not proceeded with sleep study to assess for obstructive sleep apnea. At this point, continue critical care monitoring, continue on vent support. Weaning parameters per Pulmonary. Would consider dopamine. Job ID: [id number]
[2019-02-16] MEDS: Levothyroxine Sodium 75 MCG TAB PO SCH (06:31)
[2019-02-16 07:34] LABS: Actual Bicarbonate (HCO3a) 32.3 mEq/L (22-28); Base Excess (BEa) 4.5 mEq/L (-2.0 to +3.0); CO2 Tension 61.2 mmHg (35.0-45.0); Calcium, Ionized 1.39 mmol/L (1.12-1.30); Carboxyhemoglobin (COHb) 0.9 gm% (0.0-3.0); Hemoglobin (Hb) 15.3 g/dL (12.0-16.0); O2 Tension (PaO2) 77.1 mmHg (80.0-100.0); Potassium - ABG Lab 4.47 mmol/L (3.70-5.30); Puncture Site RR; pH, Arterial 7.34 (7.35-7.45)
[2019-02-16 07:42] LABS: Hemoglobin 14.4 g/dL (12.0-16.0); Mean Corpuscular HGB CONC 29.9 g/dL (32.0-36.0); Mean Corpuscular Hemoglobin 26.5 pg (27.0-31.0); Mean Corpuscular Volume 88.6 fL (78.0-98.0); Mean Platelet Volume 11.1 fL (7.4-10.4); Platelet Count 237 thou/uL (130-400); RBC Distribution Width 18.1 % (11.5-14.5); Red Blood Cell (RBC) Count 5.43 mill/uL (4.20-5.40); White Blood Cell (WBC) Count 15.7 thou/uL (4.8-10.8)
[2019-02-16] MEDS: Mometasone/Formoterol 120 PUFF INHALER INH SCH ×2 (07:45→19:16)
[2019-02-16 07:59] LABS: Anion Gap 12 mmol/L (10-20); BUN (Urea Nitrogen) 64 mg/dL (9.8-20.1); Calc. Creatinine Clearance 76 mL/min (70-130); Calcium 10.2 mg/dL (7.8-10.44); Carbon Dioxide 32 mmol/L (22-29); Chloride 102 mmol/L (98-107); Estimated GFR-MDRD 70; Glucose 240 mg/dL (70-105); Potassium 4.2 mmol/L (3.5-5.1); Sodium 142 mmol/L (136-145)
--- NOTE | 2019-02-16 08:18 | RAD ---
CHEST 1 VIEW: HISTORY: Ventilated patient. COMPARISON: Radiograph of prior day. FINDINGS: Endotracheal tube tip appears to sit just below the level of the clavicles in similar position. Ente peter tube tip below the diaphragm but out of field of view. Dense left basilar opacity. Moderate lef t effusion and small right effusion. Increasing right lower lobe airspace opacities. IMPRESSION: Progressive bibasilar opacities concerning for multifocal pneumonia. POS: CET
[2019-02-16 08:27] LABS: Band 8 % (5-11); Hypersemented Neutrophil SLIGHT; Lymphocytes 5 % (21-51); MDiff Complete? YES; Monocytes 1 % (0-10); Myelocyte 1 % (0-0); Neutrophil 85 % (42-75); Nucleated RBC 1 % (0); Platelet Morphology Comment Appears Adequate
[2019-02-16] MEDS: Aspirin Chewable 81 MG TAB PO SCH (08:46)
[2019-02-16] MEDS: Enoxaparin Sodium 40 MG/0.4 ML SYRINGE SC SCH (08:46)
[2019-02-16] MEDS: Lorazepam 2 MG/ML VIAL SLOW IVP PRN ×2 (11:46→21:47)
--- NOTE | 2019-02-16 16:16 | PRG ---
DATE OF SERVICE: 02/16/2019 SUBJECTIVE: Ms. West's current status is unchanged. She was not weanable from the ventilator. She is currently sedated. OBJECTIVE: VITAL SIGNS: Blood pressure 113/68, pulse 80, and temperature, afebrile. LUNGS: Clear to auscultation. HEART: Regular rate and rhythm. ABDOMEN: Protuberant. EXTREMITIES: 3+ pitting edema. PERTINENT LABORATORY DATA: Hemoglobin 14.4. Creatinine 0.9. IMPRESSION: 1. Right ventricular failure. 2. Severe pulmonary hypertension. 3. Chronic obstructive pulmonary disease. 4. Likely obstructive sleep apnea. 5. Tobacco abuse. RECOMMENDATIONS: At this point, I have no further recommendations to add. Her heart failure appears end-stage. Last echo dated 08/12/2018 with LVEF 55% to 60% and severely enlarged right ventricle and right atrium. severe tricuspid regurgitation present with severely elevated pulmonary artery pressures. Again, multiple attempts at outpatient sleep study Job ID: [id number]
--- NOTE | 2019-02-16 16:45 | PDOC.HOSPP ---
- Subjective Encounter Date: 02/16/19 Encounter Time: 15:30 Subjective: f/u for resp failure, COPD exacerbation and unweanable currently. - Objective Vital Signs & Weight: Vital Signs (12 hours) Temp Pulse Resp BP Pulse Ox 02/16/19 16:00 88 117/68 02/16/19 15:36 88 117/68 02/16/19 15:00 82 115/72 02/16/19 14:00 82 115/72 02/16/19 13:41 82 115/72 02/16/19 13:00 74 107/74 02/16/19 11:48 74 107/74 02/16/19 10:58 74 107/74 02/16/19 10:19 74 107/74 02/16/19 10:00 74 107/74 02/16/19 09:00 75 118/80 02/16/19 08:00 75 118/80 02/16/19 07:46 75 118/80 02/16/19 07:32 20 96 02/16/19 07:00 98.8 F 22 H 02/16/19 06:00 22 H Weight Admit Weight 163 lb 5.8 oz Weight 167 lb 15.876 oz Most Recent Monitor Data Heart Rate from ECG 90 NIBP 112/69 NIBP BP-Mean 83 Respiration from ECG 24 SpO2 99 I&O: 02/15/19 02/16/19 02/17/19 06:59 06:59 06:59 Intake Total 2092 1711 0 Output Total 1945 1840 740 Balance 147 -129 -740 Result Diagrams: 02/16/19 07:13 02/16/19 07:13 Additional Labs: Microbiology 02/09/19 20:21 Venous blood - Right Hand Blood Culture - Final NO GROWTH IN 5 DAYS 02/09/19 20:16 Venous blood - Right Arm Blood Culture - Final NO GROWTH IN 5 DAYS Laboratory Tests 02/10/19 02/11/19 02/12/19 06:35 05:08 05:34 Creatinine 1.15 H 1.62 H 1.08 02/13/19 02/14/19 04:56 03:36 Creatinine 1.16 H 1.49 H Radiology Reviewed by me: Yes (PCXR - multifocal opacities bilat) EKG Reviewed by me: Yes (Tele - SR) Hospitalist ROS - Medication Medications: Active Medications Generic Name Dose Route Start Last Admin Trade Name Freq PRN Reason Stop Dose Admin Albuterol/Ipratropium 3 ml 02/10/19 18:30 02/16/19 14:05 Duoneb NEB 3 ml [id number] FEROZ Administration Aspirin 81 mg 02/10/19 09:00 02/16/19 08:46 Aspirin Chewable PO 81 mg DAILY FEROZ Administration Enoxaparin Sodium 40 mg 02/10/19 09:00 02/16/19 08:46 Lovenox SC 40 mg 0900 FEROZ Administration Sodium Chloride 1,000 mls @ 70 mls/hr 02/13/19 12:41 02/16/19 06:11 1/2 Normal Saline IV 1,000 mls .[id number] FEROZ Administration Levofloxacin 500 mg/ Device 100 mls @ 100 mls/hr 02/13/19 17:00 02/15/19 18: 15 IVPB 100 mls Q24HR FEROZ Administration Levothyroxine Sodium 75 mcg 02/10/19 06:00 02/16/19 06:31 Synthroid PO 75 mcg 0600 FEROZ Administration Lorazepam 1 mg 02/15/19 09:37 02/16/19 11:46 Ativan SLOW IVP 03/12/19 17:02 1 mg Q1H PRN Administration Breakthrough agitation Methylprednisolone Sodium Succinate 20 mg 02/10/19 23:59 02/16/19 10:55 Solu-Medrol IVP 20 mg Q6HR FEROZ Administration Metoclopramide HCl 10 mg 02/13/19 18:00 02/16/19 10:55 Reglan IVP 10 mg Q6HR FEROZ Administration Mometasone Furoate/Formoterol Fumar 2 puff 02/13/19 18:30 02/16/19 07:45 Dulera 200 Mcg/5 Mcg Inhaler INH 2 puff BID-RT FEROZ Administration - Exam General - other findings: sedate on mech ventilation ENT: normocephalic atraumatic, no oropharyngeal lesions ENT - other findings: ETT in place Neck: supple, symmetric, no JVD, no thyromegaly Heart: RRR, no gallops, no rubs, normal peripheral pulses Heart - other findings: S1, S2 Respiratory - other findings: diminished in bases Gastrointestinal: soft, non-distended, normal bowel sounds, no palpable masses, no hepatomegaly Extremities: no cyanosis, 1+ LE edema Skin: normal turgor Neurological - other findings: sedate on mech vent Psychiatric: somnolent Hosp A/P (1) Acute on chronic respiratory failure with hypoxia Code(s): J96.21 - ACUTE AND CHRONIC RESPIRATORY FAILURE WITH HYPOXIA Status: Acute Plan: Likely multifactorial including severe pulm HTN, continue supportive mgmt, likely may be unweanable, currently FIO2 45% (2) COPD exacerbation Code(s): J44.1 - CHRONIC OBSTRUCTIVE PULMONARY DISEASE W (ACUTE) EXACERBATION Status: Acute Plan: See above (3) Acute exacerbation of congestive heart failure Code(s): I50.9 - HEART FAILURE, UNSPECIFIED Status: Acute Qualifiers: Heart failure type: diastolic Qualified Code(s): I50.33 - Acute on chronic diastolic (congestive) heart failure Plan: Likely volume overload, saline lock IVF, Lasix 20mg IV x 1 dose, monitor daily weight, I/O's (4) Cor pulmonale Code(s): I27.81 - COR PULMONALE (CHRONIC) Status: Chronic Plan: Likely a significant contribution to current resp failure (5) Tobacco abuse Code(s): Z72.0 - TOBACCO USE Status: Chronic (6) ALICIA (acute kidney injury) Code(s): N17.9 - ACUTE KIDNEY FAILURE, UNSPECIFIED Status: Acute Plan: Resolved - Plan continue antibiotics, social media assistant, respiratory therapy, DVT proph w/SCDs Continue aggressive pulmonary support, may need tracheostomy Continue Solumedrol IV Duonebs q4h Pulmonary/Critical care consult appreciated AM lab: CMP, CBC. ABG PCXR in am Palliative care consult Levaquin 500mg IV daily Dulera 2puffs BID Saline lock IVF Lasix 20mg IV x 1 dose
[2019-02-16] MEDS ORDERED: Furosemide 20 MG/2 ML VIAL SLOW IVP SCH (17:00)
[2019-02-16] MEDS: Famotidine/PF 20 mg/2ml Vial SLOW IVP SCH (21:42)
--- NOTE | 2019-02-16 22:35 | PRG ---
DATE OF SERVICE: 02/16/2019 SUBJECTIVE: Cassie West still is showing no signs and she is a candidate for weaning and extubation. Ventilatory support had to be increased last night. OBJECTIVE: VITAL SIGNS: Heart rate 89, blood pressure is 112/70, respiratory rate 27. LUNGS: Clear with long expiratory phase. HEART: Regular rhythm. ABDOMEN: Soft and nontender. EXTREMITIES: Without edema. LABORATORY DATA: White count 15.7, hemoglobin 14.4, platelets 237. Electrolytes are unremarkable. BUN 64, creatinine 0.99. IMPRESSION: 1. End-stage chronic obstructive pulmonary disease. 2. Pulmonary hypertension secondary to chronic obstructive pulmonary disease. 3. Deconditioning. 4. ?history of PDA, not seen on transthoracic echo. 5. Ongoing tobacco use. I do not feel she can survive this, but family is strongly decided about ongoing aggressive care. If we want to continue with aggressive care, she needs tracheostomy and a PEG. Family scheduled me with Palliative Care. Critical care time is 35 minutes. Job ID: [id number] MTDD
[2019-02-17] MEDS: Lorazepam 2 MG/ML VIAL SLOW IVP PRN ×4 (03:52→23:20)
[2019-02-17] MEDS: methylPREDNISolone Sod Succ 40 MG VIAL IVP SCH ×4 (06:10→23:04)
[2019-02-17] MEDS: Metoclopramide HCl 10 MG/2 ML VIAL IVP SCH ×4 (06:10→23:05)
[2019-02-17] MEDS: Levothyroxine Sodium 75 MCG TAB PO SCH (06:10)
[2019-02-17 06:28] LABS: Hemoglobin 14.3 g/dL (12.0-16.0); Lymphocytes 7 % (21-51); MDiff Complete? YES; Mean Corpuscular HGB CONC 29.3 g/dL (32.0-36.0); Mean Corpuscular Hemoglobin 26.3 pg (27.0-31.0); Mean Corpuscular Volume 89.5 fL (78.0-98.0); Mean Platelet Volume 11.5 fL (7.4-10.4); Monocytes 2 % (0-10); Neutrophil 91 % (42-75); Platelet Count 248 thou/uL (130-400); Platelet Morphology Comment Appears Adequate; RBC Distribution Width 18.6 % (11.5-14.5); RBC Morphology Normal; Red Blood Cell (RBC) Count 5.43 mill/uL (4.20-5.40)
[2019-02-17 06:34] LABS: Anion Gap 10 mmol/L (10-20); BUN (Urea Nitrogen) 52 mg/dL (9.8-20.1); Calc. Creatinine Clearance 79 mL/min (70-130); Calcium 10.7 mg/dL (7.8-10.44); Carbon Dioxide 36 mmol/L (22-29); Chloride 105 mmol/L (98-107); Estimated GFR-MDRD 74; Glucose 295 mg/dL (70-105); Potassium 4.6 mmol/L (3.5-5.1); Sodium 146 mmol/L (136-145)
[2019-02-17] MEDS: Mometasone/Formoterol 120 PUFF INHALER INH SCH ×2 (06:57→19:17)
[2019-02-17 07:25] LABS: Actual Bicarbonate (HCO3a) 35.4 mEq/L (22-28); Base Excess (BEa) 8.5 mEq/L (-2.0 to +3.0); CO2 Tension 58.3 mmHg (35.0-45.0); Calcium, Ionized 1.43 mmol/L (1.12-1.30); Carboxyhemoglobin (COHb) 1.4 gm% (0.0-3.0); Hemoglobin (Hb) 14.3 g/dL (12.0-16.0); Potassium - ABG Lab 4.63 mmol/L (3.70-5.30)
[2019-02-17 07:55] LABS: Puncture Site L.R.
[2019-02-17 07:56] LABS: ALV-art Gradient 177.975 (0-20)
--- NOTE | 2019-02-17 09:32 | RAD ---
PORTABLE CHEST 1 VIEW: Date: 02/17/2019. Time: 4:35 a.m. HISTORY: Respiratory failure. FINDINGS/IMPRESSION: No significant interval change is seen since the previous day's exam. POS: JARROD
[2019-02-17] MEDS: Enoxaparin Sodium 40 MG/0.4 ML SYRINGE SC SCH (09:40)
[2019-02-17] MEDS: Famotidine/PF 20 mg/2ml Vial SLOW IVP SCH (09:40)
[2019-02-17] MEDS: Aspirin Chewable 81 MG TAB PO SCH (09:40)
[2019-02-17] MEDS: Morphine 2 MG/ML SYRINGE SLOW IVP PRN ×3 (11:08→21:55)
--- NOTE | 2019-02-17 12:50 | PRG ---
DATE OF SERVICE: 02/17/2019 SUBJECTIVE: Ms. Scott's status is unchanged. She is not weanable from the vent. OBJECTIVE: VITAL SIGNS: Blood pressure 100/63, pulse 106, and respirations 28. LUNGS: Clear to auscultation. HEART: Regular rate and rhythm. ABDOMEN: Protuberant and soft. EXTREMITIES: 3+ pitting edema. PERTINENT LABORATORY DATA: Hemoglobin 14.3, white blood cell count 15.0, and creatinine 0.95. IMPRESSION: 1. Right-sided failure. 2. Severe pulmonary hypertension. 3. Chronic obstructive pulmonary disease. 4. Ongoing tobacco abuse. RECOMMENDATIONS: I had a long discussion with the sister today. She appears to be the power of title attorney. She is struggling with the options of trach and PEG placement versus hospice care continuing on this course with recurrent hospitalizations given that she has not sought treatment in the past for sleep apnea or COPD. She has a followup appointment in the office that had been canceled. From my standpoint, I do not feel she is to survive this hospitalization. Her prognosis appears guarded. From my standpoint, I have no further recommendations. Dr. Bennett is to be on-call this weekend. Please call for questions. Job ID: [id number]
--- NOTE | 2019-02-17 13:00 | PRG ---
DATE OF SERVICE: 02/17/2019 SUBJECTIVE: Cassie Scott still not weanable. OBJECTIVE: VITAL SIGNS: Heart rate of 100 and respiratory rates in the 20. Her exhaled tidal volume is small. Blood pressure is 112/65. LUNGS: Remarkable for coarse equal breath sounds. HEART: Regular rhythm. ABDOMEN: Soft and nontender. EXTREMITIES: Without edema. LABORATORY DATA: White count is 15, hemoglobin is 14.3, and platelets 248. Electrolytes are unremarkable. BUN is 52 and creatinine is 0.9. IMPRESSION AND PLAN: Chronic obstructive pulmonary disease exacerbation with respiratory failure. Her family has decided they want comfort care. They want more family to come visit her before she is extubated. They will tell us when they are ready to withdraw care. Chest radiograph shows no new infiltrates today. Job ID: [id number]
--- NOTE | 2019-02-17 13:06 | PDOC.HOSPP ---
- Subjective Subjective: Seen and examined. Remains intubated. Unable to safely liberate from the vent. Family wishing to persue DNR and considering withdrawal of care. Discussed case with palliative care and family at bedside. - Objective Vital Signs & Weight: Vital Signs (12 hours) Temp Pulse Resp BP Pulse Ox 02/17/19 12:00 100 F H 24 H 02/17/19 11:02 102 H 100/63 02/17/19 11:01 106 H 28 H 95 02/17/19 10:00 28 H 02/17/19 08:00 28 H 95 02/17/19 07:00 100.4 F H 02/17/19 06:58 83 122/75 02/17/19 06:56 82 28 H 97 02/17/19 06:00 28 H 02/17/19 04:00 99.9 F H 27 H 02/17/19 03:06 90 02/17/19 02:00 27 H Weight Admit Weight 163 lb 5.8 oz Weight 167 lb 8.821 oz Most Recent Monitor Data Heart Rate from ECG 94 NIBP 112/65 NIBP BP-Mean 80 Respiration from ECG 23 SpO2 92 I&O: 02/16/19 02/17/19 02/18/19 06:59 06:59 06:59 Intake Total 1711 2222 Output Total 1840 2155 375 Balance -129 67 -375 Result Diagrams: 02/17/19 05:38 02/17/19 05:38 Radiology Reviewed by me: Yes (Chest xray) Hospitalist ROS - Review of Systems ROS unobtainable: due to endotracheal tube - Medication Medications: Active Medications Generic Name Dose Route Start Last Admin Trade Name Freq PRN Reason Stop Dose Admin Albuterol/Ipratropium 3 ml 02/10/19 18:30 02/17/19 11:01 Duoneb NEB 3 ml [id number] FEROZ Administration Aspirin 81 mg 02/10/19 09:00 02/17/19 09:40 Aspirin Chewable PO 81 mg DAILY FEROZ Administration Enoxaparin Sodium 40 mg 02/10/19 09:00 02/17/19 09:40 Lovenox SC 40 mg 0900 FEROZ Administration Levofloxacin 500 mg/ Device 100 mls @ 100 mls/hr 02/13/19 17:00 02/16/19 16: 49 IVPB 100 mls Q24HR FEROZ Administration Dexmedetomidine HCl 400 mcg/ 100 mls @ 0 mls/hr 02/16/19 07:15 02/17/19 03:56 Sodium Chloride IVPB 100 mls INF FEROZ Administration Protocol Per Protocol Levothyroxine Sodium 75 mcg 02/10/19 06:00 02/17/19 06:10 Synthroid PO 75 mcg 0600 FEROZ Administration Lorazepam 1 mg 02/15/19 09:37 02/17/19 07:23 Ativan SLOW IVP 03/12/19 17:02 1 mg Q1H PRN Administration Breakthrough agitation Methylprednisolone Sodium Succinate 20 mg 02/10/19 23:59 02/17/19 12:10 Solu-Medrol IVP 20 mg Q6HR FEROZ Administration Metoclopramide HCl 10 mg 02/13/19 18:00 02/17/19 12:10 Reglan IVP 10 mg Q6HR FEROZ Administration Mometasone Furoate/Formoterol Fumar 2 puff 02/13/19 18:30 02/17/19 06:57 Dulera 200 Mcg/5 Mcg Inhaler INH 2 puff BID-RT FEROZ Administration Morphine Sulfate 2 mg 02/10/19 17:02 02/17/19 11:08 Morphine SLOW IVP 03/12/19 17:02 2 mg Q1H PRN Administration BREAKTHROUGH PAIN/Agitation - Exam General Appearance: ill appearing Eye - other findings: EOMI ENT: no oropharyngeal lesions, dry oral mucosa Neck: supple, symmetric Heart: no murmur, no gallops, no rubs Heart - other findings: S1 and S2 present Respiratory: no rales, no ronchi, normal chest expansion, wheezes Gastrointestinal: soft, non-tender, no palpable masses, no guarding, no rigidity Extremities: 1+ LE edema Skin: no lesions, no rashes Neurological - other findings: Limited secondary to sedation Musculoskeletal: normal tone Psychiatric - other findings: Limited secondary to sedation Hosp A/P (1) Acute exacerbation of congestive heart failure Code(s): I50.9 - HEART FAILURE, UNSPECIFIED Status: Acute Qualifiers: Heart failure type: diastolic Qualified Code(s): I50.33 - Acute on chronic diastolic (congestive) heart failure (2) Acute on chronic kidney failure Code(s): N17.9 - ACUTE KIDNEY FAILURE, UNSPECIFIED; N18.9 - CHRONIC KIDNEY DISEASE, UNSPECIFIED Status: Acute (3) Acute on chronic respiratory failure with hypoxia Code(s): J96.21 - ACUTE AND CHRONIC RESPIRATORY FAILURE WITH HYPOXIA Status: Acute (4) Anasarca Code(s): R60.1 - GENERALIZED EDEMA Status: Acute (5) COPD exacerbation Code(s): J44.1 - CHRONIC OBSTRUCTIVE PULMONARY DISEASE W (ACUTE) EXACERBATION Status: Acute (6) Cor pulmonale Code(s): I27.81 - COR PULMONALE (CHRONIC) Status: Chronic (7) Cor pulmonale (chronic) Code(s): I27.81 - COR PULMONALE (CHRONIC) Status: Chronic (8) Diabetes type 2, controlled Code(s): E11.9 - TYPE 2 DIABETES MELLITUS WITHOUT COMPLICATIONS Status: Chronic Qualifiers: Diabetes mellitus [facility] insulin use: without [facility] use Diabetes mellitus complication status: without complication Qualified Code(s): E11.9 - Type 2 diabetes mellitus without complications (9) Hypertension Code(s): I10 - ESSENTIAL (PRIMARY) HYPERTENSION Status: Chronic Qualifiers: Hypertension type: essential hypertension Qualified Code(s): I10 - Essential (primary) hypertension (10) Pulmonary hypertension Code(s): I27.20 - PULMONARY HYPERTENSION, UNSPECIFIED Status: Chronic - Plan Plan: Pulm/ CC consult, recommendations appreciated Cardiology consult, recommendations appreciated Palliative care consult, recommendations appreciated Unable to safely liberate from the vent Family requesting less aggressive measures Family requesting DNR Family considering comfort care/ withdrawal of care CXR noted I would not recommend Trach/ peg for this patient her [facility] prognosis would be poor, would likely never leave the hospital setting Continue current plan of care GI and DVT PPX
[2019-02-17] MEDS: Famotidine 20 MG TAB PO SCH (20:01)
[2019-02-17] MEDS: Acetaminophen 325 MG TAB PO PRN (23:43)
[2019-02-18] MEDS: Levothyroxine Sodium 75 MCG TAB PO SCH (05:02)
[2019-02-18] MEDS: Metoclopramide HCl 10 MG/2 ML VIAL IVP SCH ×4 (05:02→23:11)
[2019-02-18] MEDS: methylPREDNISolone Sod Succ 40 MG VIAL IVP SCH ×4 (05:02→23:11)
[2019-02-18] MEDS: Mometasone/Formoterol 120 PUFF INHALER INH SCH ×2 (06:39→18:38)
[2019-02-18 07:20] LABS: Actual Bicarbonate (HCO3a) 37.6 mEq/L (22-28); Base Excess (BEa) 9.7 mEq/L (-2.0 to +3.0); Calcium, Ionized 1.43 mmol/L (1.12-1.30); Carboxyhemoglobin (COHb) 1.5 gm% (0.0-3.0); Hemoglobin (Hb) 14.4 g/dL (12.0-16.0); O2 Tension (PaO2) 67.6 mmHg (80.0-100.0); pH, Arterial 7.37 (7.35-7.45)
[2019-02-18 07:27] LABS: Puncture Site LRA
[2019-02-18 07:28] LABS: Anion Gap 12 mmol/L (10-20); BUN (Urea Nitrogen) 45 mg/dL (9.8-20.1); Calc. Creatinine Clearance 0 mL/min (70-130); Calcium 10.6 mg/dL (7.8-10.44); Carbon Dioxide 36 mmol/L (22-29); Chloride 106 mmol/L (98-107); Estimated GFR-MDRD 68; Glucose 310 mg/dL (70-105); Potassium 5.3 mmol/L (3.5-5.1); Sodium 149 mmol/L (136-145)
[2019-02-18 07:56] LABS: Eosinophils 1 % (0-10); Hemoglobin 14.1 g/dL (12.0-16.0); Hypersemented Neutrophil SLIGHT; Hypochromia SLIGHT = 6-15 cells (100X) (0-5/hpf); Large Platelets SLIGHT; Lymphocytes 1 % (21-51); MDiff Complete? YES; Mean Corpuscular HGB CONC 28.8 g/dL (32.0-36.0); Mean Corpuscular Hemoglobin 25.7 pg (27.0-31.0); Mean Corpuscular Volume 89.3 fL (78.0-98.0); Mean Platelet Volume 11.7 fL (7.4-10.4); Monocytes 7 % (0-10); Neutrophil 91 % (42-75); Platelet Count 231 thou/uL (130-400); Platelet Morphology Comment Appears Adequate; RBC Distribution Width 18.2 % (11.5-14.5); White Blood Cell (WBC) Count 19.4 thou/uL (4.8-10.8)
[2019-02-18] MEDS: Famotidine 20 MG TAB PO SCH ×2 (08:33→21:23)
[2019-02-18] MEDS: Aspirin Chewable 81 MG TAB PO SCH (08:34)
[2019-02-18] MEDS: Enoxaparin Sodium 40 MG/0.4 ML SYRINGE SC SCH (08:34)
--- NOTE | 2019-02-18 10:03 | PRG ---
DATE OF SERVICE: 02/18/2019 TIME: 35 minutes of critical care time. SUBJECTIVE: The patient remains intubated on mechanical ventilation. There have been no acute changes overnight. OBJECTIVE: VITAL SIGNS: Temperature 100.6 with a T-max of 102.3, pulse 91, blood pressure 120/79, and O2 saturation 92%. 24-hour intake 2222, output 2155. HEENT: Unremarkable. NECK: No JVD. LUNGS: Coarse breath sounds. CARDIAC: S1, S2. Regular. ABDOMEN: Soft. EXTREMITIES: No edema. LABORATORY DATA: White blood cell count up to 19.4, hemoglobin 14, hematocrit 49, and platelet count 231. pH of 7.37, pCO2 of 66, PO2 of 67 on SIMV rate 10, tidal volume 500, PEEP 5, pressure support 10, and FiO2 of 45%. Sodium 149, potassium 5.3, chloride 106, CO2 of 36, BUN 45, creatinine 1.0, glucose 310, and calcium 10.6. ASSESSMENT: 1. Acute on chronic respiratory failure, requiring mechanical ventilation. 2. Chronic obstructive pulmonary disease with exacerbation requiring mechanical ventilation. 3. Continued fever. 4. Prerenal azotemia. PLAN: 1. The patient is currently on Levaquin. However, with that, she is continuing to be febrile, which indicates that she could have some type of nosocomial infection. 2. Reculture. 3. Broaden antibiotic coverage. 4. Not weanable at this time. Job ID: [id number]
[2019-02-18] MEDS: Lorazepam 2 MG/ML VIAL SLOW IVP PRN ×2 (10:12→21:25)
[2019-02-18] MEDS: Acetaminophen 325 MG TAB PO PRN ×2 (10:13→21:23)
[2019-02-18] MEDS ORDERED: Insulin Regular 300 UNITS/3 ML VIAL SC PRN (11:02)
[2019-02-18] MEDS ORDERED: Dextrose 5% in Water 1,000 ML IV PRN (11:02)
[2019-02-18] MEDS ORDERED: Dextrose 50% Abboject 50 ML SYRINGE SLOW IVP PRN (11:02)
[2019-02-18] MEDS ORDERED: Vancomycin HCl 1.5 GM in Sodium Chloride 0.9% 250 ML 300 ML IVPB SCH (12:00)
[2019-02-18] MEDS: Piperacillin/Tazobactam 3.375 GM in Sodium Chloride 0.9% 100 ML IVPB SCH ×3 (12:30→23:10)
[2019-02-18] MEDS: Dextrose 5% in Water 1,000 ML IV SCH (12:32)
[2019-02-18] MEDS: Insulin Regular 300 UNITS/3 ML VIAL SC PRN ×2 (13:18→18:16)
--- NOTE | 2019-02-18 14:14 | PDOC.HOSPP ---
- Subjective non-verbal Subjective: Seen and examined. No family at bedside this AM. - Objective Vital Signs & Weight: Vital Signs (12 hours) Temp Pulse Resp BP Pulse Ox 02/18/19 14:10 95 16 92 L 02/18/19 12:00 101 F H 02/18/19 10:46 90 136/79 02/18/19 10:44 91 14 92 L 02/18/19 10:00 20 02/18/19 08:00 101.9 F H 02/18/19 06:40 90 128/79 02/18/19 06:35 90 14 92 L 02/18/19 06:00 21 H 02/18/19 04:00 100.6 F H 25 H 02/18/19 03:30 99 Weight Admit Weight 163 lb 5.8 oz Weight 2.667 oz Most Recent Monitor Data Heart Rate from ECG 84 NIBP 138/83 NIBP BP-Mean 101 Respiration from ECG 19 SpO2 92 I&O: 02/17/19 02/18/19 02/19/19 06:59 06:59 06:59 Intake Total 2222 1294 Output Total 2155 1520 400 Balance 67 226 -400 Result Diagrams: 02/18/19 06:51 02/18/19 06:51 Radiology Reviewed by me: Yes (Chest x ray 02/17) Hospitalist ROS - Review of Systems ROS unobtainable: due to endotracheal tube - Medication Medications: Active Medications Generic Name Dose Route Start Last Admin Trade Name Freq PRN Reason Stop Dose Admin Acetaminophen 650 mg 02/09/19 22:25 02/18/19 10:13 Tylenol PO 650 mg Q4H PRN Administration Headache/Fever/Mild Pain (1-3) Albuterol/Ipratropium 3 ml 02/10/19 18:30 02/18/19 14:10 Duoneb NEB 3 ml [id number] FEROZ Administration Aspirin 81 mg 02/10/19 09:00 02/18/19 08:34 Aspirin Chewable PO 81 mg DAILY FEROZ Administration Enoxaparin Sodium 40 mg 02/10/19 09:00 02/18/19 08:34 Lovenox SC 40 mg 0900 FEROZ Administration Famotidine 20 mg 02/17/19 21:00 02/18/19 08:33 Pepcid PO 20 mg BID FEROZ Administration Dexmedetomidine HCl 400 mcg/ 100 mls @ 0 mls/hr 02/16/19 07:15 02/18/19 08:59 Sodium Chloride IVPB 100 mls INF FEROZ Administration Protocol Per Protocol Piperacillin Sod/Tazobactam 100 mls @ 200 mls/hr 02/18/19 12:00 02/18/19 12: 30 Sod 3.375 gm/ Sodium Chloride IVPB 100 mls Q6HR FEROZ Administration Dextrose/Water 1,000 mls @ 50 mls/hr 02/18/19 10:15 02/18/19 12:32 D5w IV 1,000 mls .Q20H FEROZ Administration Vancomycin HCl 1.5 gm/ Sodium 300 mls @ 200 mls/hr 02/18/19 12:00 02/18/19 12 :30 Chloride IVPB 300 mls Q24HR FEROZ Administration Insulin Human Regular 0 units 02/18/19 11:02 02/18/19 13:18 Humulin R SC 6 unit .MODERATE SLIDING SC PRN Administration Moderate Correctional Scale Levothyroxine Sodium 75 mcg 02/10/19 06:00 02/18/19 05:02 Synthroid PO 75 mcg 0600 FEROZ Administration Lorazepam 1 mg 02/15/19 09:37 02/18/19 10:12 Ativan SLOW IVP 03/12/19 17:02 1 mg Q1H PRN Administration Breakthrough agitation Methylprednisolone Sodium Succinate 20 mg 02/10/19 23:59 02/18/19 12:30 Solu-Medrol IVP 20 mg Q6HR FEROZ Administration Metoclopramide HCl 10 mg 02/13/19 18:00 02/18/19 12:31 Reglan IVP 10 mg Q6HR FEROZ Administration Mometasone Furoate/Formoterol Fumar 2 puff 02/13/19 18:30 02/18/19 06:39 Dulera 200 Mcg/5 Mcg Inhaler INH 2 puff BID-RT FEROZ Administration Morphine Sulfate 2 mg 02/10/19 17:02 02/17/19 21:55 Morphine SLOW IVP 03/12/19 17:02 2 mg Q1H PRN Administration BREAKTHROUGH PAIN/Agitation - Exam General - other findings: Intubated, sedated Eye: PERRL Eye - other findings: EOMI ENT: no oropharyngeal lesions, moist mucosa Neck: supple, no lymphadenopathy Heart: no murmur, no gallops, no rubs Heart - other findings: S1 and S2 present. Respiratory: no rales, no ronchi, normal chest expansion, wheezes (few scattered ) Gastrointestinal: soft, non-tender, no palpable masses, no guarding, no rigidity Gastrointestinal - other findings: Obese Extremities: 1+ LE edema Skin: no lesions, no rashes Neurological - other findings: Limited secondary to sedation Musculoskeletal: normal tone Psychiatric: not oriented Hosp A/P (1) Acute exacerbation of congestive heart failure Code(s): I50.9 - HEART FAILURE, UNSPECIFIED Status: Acute Qualifiers: Heart failure type: diastolic Qualified Code(s): I50.33 - Acute on chronic diastolic (congestive) heart failure (2) Acute on chronic kidney failure Code(s): N17.9 - ACUTE KIDNEY FAILURE, UNSPECIFIED; N18.9 - CHRONIC KIDNEY DISEASE, UNSPECIFIED Status: Acute (3) Acute on chronic respiratory failure with hypoxia Code(s): J96.21 - ACUTE AND CHRONIC RESPIRATORY FAILURE WITH HYPOXIA Status: Acute (4) Anasarca Code(s): R60.1 - GENERALIZED EDEMA Status: Acute (5) COPD exacerbation Code(s): J44.1 - CHRONIC OBSTRUCTIVE PULMONARY DISEASE W (ACUTE) EXACERBATION Status: Acute (6) Cor pulmonale Code(s): I27.81 - COR PULMONALE (CHRONIC) Status: Chronic (7) Cor pulmonale (chronic) Code(s): I27.81 - COR PULMONALE (CHRONIC) Status: Chronic (8) Diabetes type 2, controlled Code(s): E11.9 - TYPE 2 DIABETES MELLITUS WITHOUT COMPLICATIONS Status: Chronic Qualifiers: Diabetes mellitus senior care insulin use: without senior care use Diabetes mellitus complication status: without complication Qualified Code(s): E11.9 - Type 2 diabetes mellitus without complications (9) Hypertension Code(s): I10 - ESSENTIAL (PRIMARY) HYPERTENSION Status: Chronic Qualifiers: Hypertension type: essential hypertension Qualified Code(s): I10 - Essential (primary) hypertension (10) Pulmonary hypertension Code(s): I27.20 - PULMONARY HYPERTENSION, UNSPECIFIED Status: Chronic - Plan Plan: Pulm/ CC consult, recommendations appreciated Cardiology consult, recommendations appreciated Palliative care consult, recommendations appreciated Unable to safely liberate from the vent Family requesting less aggressive measures Family requesting DNR Family considering comfort care/ withdrawal of care - More family are coming in to say goodbye before they are ready for withdrawal of care Worsening hypernatremia, start D5W ISS - Moderate, Q6 hours IV ABX CXR noted I would not recommend Trach/ 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
[2019-02-18] MEDS ORDERED: Vancomycin HCl 1 GM in Premix Bag 1 BAG IVPB SCH (21:00)
[2019-02-19] MEDS: Acetaminophen 325 MG TAB PO PRN ×2 (01:02→05:35)
--- NOTE | 2019-02-19 01:02 | EKG ---
Test Reason : Blood Pressure : / mmHG Vent. Rate : 104 BPM Atrial Rate : 104 BPM P-R Int : 156 ms QRS Dur : 078 ms QT Int : 358 ms P-R-T Axes : 063 156 026 degrees QTc Int : 470 ms Sinus tachycardia Biatrial enlargement Right axis deviation Pulmonary disease pattern Right ventricular hypertrophy with repolarization abnormality Cannot rule out Inferior infarct , age undetermined Abnormal ECG Confirmed by LISBETH STEPHENSON ([id number]), script editor DOC KOO ([id number]) on 02/19/2019 1:01:53 AM Referred By: Confirmed By:LISBETH STEPHENSON
[2019-02-19] MEDS: Lorazepam 2 MG/ML VIAL SLOW IVP PRN ×3 (03:00→14:34)
[2019-02-19] MEDS: Levothyroxine Sodium 75 MCG TAB PO SCH (05:35)
[2019-02-19] MEDS: Metoclopramide HCl 10 MG/2 ML VIAL IVP SCH (05:35)
[2019-02-19] MEDS: Piperacillin/Tazobactam 3.375 GM in Sodium Chloride 0.9% 100 ML IVPB SCH (05:35)
[2019-02-19] MEDS: methylPREDNISolone Sod Succ 40 MG VIAL IVP SCH (05:37)
[2019-02-19] MEDS: Dextrose 5% in Water 1,000 ML IV SCH (05:38)
[2019-02-19] MEDS: Insulin Regular 300 UNITS/3 ML VIAL SC PRN (06:08)
[2019-02-19] MEDS: Mometasone/Formoterol 120 PUFF INHALER INH SCH (07:07)
[2019-02-19] MEDS: Aspirin Chewable 81 MG TAB PO SCH (09:00)
--- NOTE | 2019-02-19 09:34 | PRG ---
DATE OF SERVICE: 02/19/2019 TIME SPENT: 30 minutes of critical care time. SUBJECTIVE: The patient's family is apparently going to withdraw care later this morning. OBJECTIVE: VITAL SIGNS: On exam, temperature is 99.9, pulse 83, blood pressure 114/74, O2 saturation 94%. Intake 1872, output 1520. Weight 167 pounds. HEENT: Unremarkable. NECK: No JVD. LUNGS: Coarse breath sounds bilaterally. CARDIAC: S1 and S2. Regular. ABDOMEN: Soft. EXTREMITIES: No edema. LABORATORY DATA: No labs were done today. ASSESSMENT: 1. Persistent respiratory failure, requiring mechanical ventilation. 2. Chronic obstructive pulmonary disease. PLAN: Extubation is planned. I have written for comfort medications. I do not think that she will pass very quickly. I have discontinued most of her other medications. Job ID: [id number]
[2019-02-19] MEDS: Morphine 4 MG/ML VIAL SLOW IVP PRN ×5 (10:44→22:45)
--- NOTE | 2019-02-19 11:28 | PDOC.HOSPP ---
- Subjective non-verbal Subjective: Intubated, sedated. No family at bedside this AM. - Objective Vital Signs & Weight: Vital Signs (12 hours) Temp Pulse Resp BP Pulse Ox 02/19/19 10:00 13 02/19/19 08:00 99.5 F 12 02/19/19 07:02 81 115/75 02/19/19 07:00 89 14 94 L 02/19/19 05:58 13 02/19/19 05:56 99.9 F H 02/19/19 05:00 99.9 F H 02/19/19 04:00 99.3 F 14 02/19/19 03:00 99.5 F 02/19/19 02:31 88 13 94 L 02/19/19 02:00 99.2 F 13 02/19/19 01:00 101.5 F H 02/19/19 00:00 101.9 F H 14 Weight Admit Weight 163 lb 5.8 oz Weight 167 lb 12.348 oz Most Recent Monitor Data Heart Rate from ECG 115 NIBP 102/67 NIBP BP-Mean 78 Respiration from ECG 33 SpO2 97 I&O: 02/18/19 02/19/19 02/20/19 06:59 06:59 06:59 Intake Total 1294 1872 Output Total 1520 1520 190 Balance -226 352 -190 Result Diagrams: 02/18/19 06:51 02/18/19 06:51 Additional Labs: Accuchecks 02/19/19 02/19/19 02/18/19 05:57 01:57 18:14 POC Glucose 194 H 198 H 208 H 02/18/19 13:19 POC Glucose 277 H Radiology Reviewed by me: Yes (CXR) Hospitalist ROS - Review of Systems All other systems reviewed; all pertinent +/- noted in HPI/Subj - Medication Medications: Active Medications Generic Name Dose Route Start Last Admin Trade Name Freq PRN Reason Stop Dose Admin Acetaminophen 650 mg 02/09/19 22:25 02/19/19 05:35 Tylenol PO 650 mg Q4H PRN Administration Headache/Fever/Mild Pain (1-3) Acetaminophen 650 mg 02/09/19 22:25 02/18/19 16:07 Tylenol [place] 650 mg Q4H PRN Administration Headache/Fever/Mild Pain (1-3) Albuterol/Ipratropium 3 ml 02/10/19 18:30 02/19/19 11:12 Duoneb NEB Not Given [id number] FEROZ Aspirin 81 mg 02/10/19 09:00 02/19/19 09:00 Aspirin Chewable PO 81 mg DAILY FEROZ Administration Dexmedetomidine HCl 400 mcg/ 100 mls @ 0 mls/hr 02/16/19 07:15 02/18/19 23:08 Sodium Chloride IVPB 100 mls INF FEROZ Administration Protocol Per Protocol Dextrose/Water 1,000 mls @ 50 mls/hr 02/18/19 10:15 02/19/19 05:38 D5w IV 1,000 mls .Q20H FEROZ Administration Insulin Human Regular 0 units 02/18/19 11:02 02/19/19 06:08 Humulin R SC 2 unit .MODERATE SLIDING SC PRN Administration Moderate Correctional Scale Lorazepam 1 mg 02/15/19 09:37 02/19/19 03:00 Ativan SLOW IVP 03/12/19 17:02 1 mg Q1H PRN Administration Breakthrough agitation Lorazepam 2 mg 02/19/19 08:18 02/19/19 10:40 Ativan SLOW IVP 2 mg Q1H PRN Administration Anxiety/Agitation Morphine Sulfate 2 mg 02/10/19 17:02 02/17/19 21:55 Morphine SLOW IVP 03/12/19 17:02 2 mg Q1H PRN Administration BREAKTHROUGH PAIN/Agitation Morphine Sulfate 4 mg 02/19/19 08:18 02/19/19 10:44 Morphine SLOW IVP 4 mg Q15MIN PRN Administration dyspnea Sodium Chloride 10 ml 02/18/19 21:00 02/19/19 09:00 Flush - Normal Saline IVF 10 ml Q12HR FEROZ Administration - Exam General Appearance: ill appearing Eye: PERRL, anicteric sclera Eye - other findings: EOMI ENT: normocephalic atraumatic, dry oral mucosa Neck: supple, symmetric Heart: no murmur, no gallops, no rubs Heart - other findings: S1 and S2 present Respiratory: no rales, normal chest expansion, rhonchi, wheezes Gastrointestinal: soft, non-tender, no guarding, no rigidity, distended Extremities: 2+ LE edema Skin: no lesions, no rashes Neurological: no new deficit Neurological - other findings: Limited secondary to clinical condition. Musculoskeletal: generalized weakness Psychiatric: not oriented Hosp A/P (1) Acute exacerbation of congestive heart failure Code(s): I50.9 - HEART FAILURE, UNSPECIFIED Status: Acute Qualifiers: Heart failure type: diastolic Qualified Code(s): I50.33 - Acute on chronic diastolic (congestive) heart failure (2) Acute on chronic kidney failure Code(s): N17.9 - ACUTE KIDNEY FAILURE, UNSPECIFIED; N18.9 - CHRONIC KIDNEY DISEASE, UNSPECIFIED Status: Acute (3) Acute on chronic respiratory failure with hypoxia Code(s): J96.21 - ACUTE AND CHRONIC RESPIRATORY FAILURE WITH HYPOXIA Status: Acute (4) Anasarca Code(s): R60.1 - GENERALIZED EDEMA Status: Acute (5) COPD exacerbation Code(s): J44.1 - CHRONIC OBSTRUCTIVE PULMONARY DISEASE W (ACUTE) EXACERBATION Status: Acute (6) Cor pulmonale Code(s): I27.81 - COR PULMONALE (CHRONIC) Status: Chronic (7) Cor pulmonale (chronic) Code(s): I27.81 - COR PULMONALE (CHRONIC) Status: Chronic (8) Diabetes type 2, controlled Code(s): E11.9 - TYPE 2 DIABETES MELLITUS WITHOUT COMPLICATIONS Status: Chronic Qualifiers: Diabetes mellitus skilled nursing insulin use: without skilled nursing use Diabetes mellitus complication status: without complication Qualified Code(s): E11.9 - Type 2 diabetes mellitus without complications (9) Hypertension Code(s): I10 - ESSENTIAL (PRIMARY) HYPERTENSION Status: Chronic Qualifiers: Hypertension type: essential hypertension Qualified Code(s): I10 - Essential (primary) hypertension (10) Pulmonary hypertension Code(s): I27.20 - PULMONARY HYPERTENSION, UNSPECIFIED Status: Chronic - Plan Plan: Pulm/ CC consult, recommendations appreciated Cardiology consult, recommendations appreciated Palliative care consult, recommendations appreciated Unable to safely liberate from the vent Family requesting less aggressive measures Family requesting DNR Family considering comfort care/ withdrawal of care - More family are coming in to say goodbye before they are ready for withdrawal of care Worsening hypernatremia, now on D5W ISS - Moderate, Q6 hours IV ABX CXR noted I would not recommend 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
[2019-02-20] MEDS: Morphine 4 MG/ML VIAL SLOW IVP PRN ×2 (04:11→05:19)
[2019-02-20] MEDS: Dextrose 5% in Water 1,000 ML IV SCH (05:11)
[2019-02-20] MEDS: Morphine 2 MG/ML SYRINGE SLOW IVP PRN (08:45)
[2019-02-20 08:51] VITALS: BP 100/62; TEMP 101.3
[2019-02-20] MEDS: Aspirin Chewable 81 MG TAB PO SCH (09:00)
--- NOTE | 2019-02-20 11:43 | PDOC.HOSPP ---
- Subjective Subjective: Seen and examined. Terminal extubation. Cheeny reeves respirations. Morphine and Ativan scheduled. Family at bedside, all questions answered in detail. Family happy that she will no longer be in pain/ suffering. - Objective Vital Signs & Weight: Vital Signs (12 hours) Temp Pulse Resp BP Pulse Ox 02/20/19 08:25 101.3 F H 122 H 20 100/62 88 L 02/20/19 08:00 88 L Weight Admit Weight 163 lb 5.8 oz Weight 167 lb 12.348 oz Most Recent Monitor Data Heart Rate from ECG 128 NIBP 106/78 NIBP BP-Mean 87 Respiration from ECG 32 SpO2 97 I&O: 02/19/19 02/20/19 02/21/19 06:59 06:59 06:59 Intake Total 1872 370 Output Total 1520 225 Balance 352 145 Result Diagrams: 02/18/19 06:51 02/18/19 06:51 Hospitalist ROS - Review of Systems ROS unobtainable: due to mental status - Medication Medications: Active Medications Generic Name Dose Route Start Last Admin Trade Name Freq PRN Reason Stop Dose Admin Acetaminophen 650 mg 02/09/19 22:25 02/18/19 16:07 Tylenol NJ 650 mg Q4H PRN Administration Headache/Fever/Mild Pain (1-3) Sodium Chloride 10 ml 02/18/19 21:00 02/19/19 22:45 Flush - Normal Saline IVF 10 ml Q12HR FEROZ Administration - Exam General Appearance: ill appearing General - other findings: comatose, hazel reeves respirations Eye: PERRL ([place]) ENT: no oropharyngeal lesions, dry oral mucosa Neck: supple, symmetric Heart: no murmur, no gallops, no rubs Heart - other findings: Rapid irregular rhythm Respiratory: no rales, rhonchi, tachypneic, wheezes Gastrointestinal: soft, non-tender, non-distended, no guarding, no rigidity Extremities: 2+ LE edema Skin: no lesions, no rashes Neurological: no focal deficits Neurological - other findings: comatose, Neuro exam limited secondary to mentation Musculoskeletal: normal tone Psychiatric: not oriented Hosp A/P (1) Acute exacerbation of congestive heart failure Code(s): I50.9 - HEART FAILURE, UNSPECIFIED Status: Acute Qualifiers: Heart failure type: diastolic Qualified Code(s): I50.33 - Acute on chronic diastolic (congestive) heart failure (2) Acute on chronic kidney failure Code(s): N17.9 - ACUTE KIDNEY FAILURE, UNSPECIFIED; N18.9 - CHRONIC KIDNEY DISEASE, UNSPECIFIED Status: Acute (3) Acute on chronic respiratory failure with hypoxia Code(s): J96.21 - ACUTE AND CHRONIC RESPIRATORY FAILURE WITH HYPOXIA Status: Acute (4) Anasarca Code(s): R60.1 - GENERALIZED EDEMA Status: Acute (5) COPD exacerbation Code(s): J44.1 - CHRONIC OBSTRUCTIVE PULMONARY DISEASE W (ACUTE) EXACERBATION Status: Acute (6) Cor pulmonale Code(s): I27.81 - COR PULMONALE (CHRONIC) Status: Chronic (7) Cor pulmonale (chronic) Code(s): I27.81 - COR PULMONALE (CHRONIC) Status: Chronic (8) Diabetes type 2, controlled Code(s): E11.9 - TYPE 2 DIABETES MELLITUS WITHOUT COMPLICATIONS Status: Chronic Qualifiers: Diabetes mellitus care home insulin use: without care home use Diabetes mellitus complication status: without complication Qualified Code(s): E11.9 - Type 2 diabetes mellitus without complications (9) Hypertension Code(s): I10 - ESSENTIAL (PRIMARY) HYPERTENSION Status: Chronic Qualifiers: Hypertension type: essential hypertension Qualified Code(s): I10 - Essential (primary) hypertension (10) Pulmonary hypertension Code(s): I27.20 - PULMONARY HYPERTENSION, UNSPECIFIED Status: Chronic - Plan Plan: Med/ surg Terminal extubation Scheduled morphine and Ativan Comfort care measures in place Hospice consult Palliative care consult, recommendations appreciated Family declined tracheostomy Family requesting less aggressive measures Family requesting DNR Continue current plan of care
[2019-02-20] MEDS: Morphine 4 MG/ML VIAL SLOW IVP SCH ×2 (12:33→17:02)
[2019-02-20] MEDS ORDERED: Lorazepam 2 MG/ML VIAL SLOW IVP SCH (13:00)
[2019-02-20] MEDS: Lorazepam 2 MG/ML VIAL SLOW IVP SCH ×2 (14:36→18:34)
--- NOTE | 2019-02-21 14:34 | DIS ---
DATE OF ADMISSION: 02/09/2019 DATE OF DISCHARGE: 02/20/2019 REASON FOR HOSPITALIZATION: Septic shock. SIGNIFICANT FINDINGS: The patient was found to have acute respiratory failure and unfortunately unable to be safely liberated from the ventilator. PROCEDURES PERFORMED/TREATMENT RENDERED: The patient was admitted to the intensive care unit and had a prolonged intubation. The patient could not be safely liberated from the vent and decision was made not to pursue tracheostomy or PEG tube placement. Family deciding for terminal extubation. CONDITION ON DISCHARGE: . SPECIFIC INSTRUCTIONS FOR THE PATIENT/FAMILY: Follow up with [facility] for arrangements. DISCHARGE MEDICATIONS: Not applicable. HOSPITAL COURSE: Ms. Scott is a 58-year-old female with past medical history of end-stage COPD, hypothyroidism, cardiomyopathy, hypertension, and osteoarthritis, who presents to [facility] on 02/09/2019, please see full history and physical and consultation from excavating machine operator for admission details. The patient was admitted to the intensive care unit and required intubation. The patient requiring aggressive life-sustaining measures and patient had maximum medical therapy by specialists including Pulmonary/Critical Care, Cardiology, Palliative Care, and commercial collections specialist-please see full consultation and progress notes from all specialists for details. The patient with a prolonged intubation. She was failing weaning trials and unable to safely liberate from the ventilator. Long discussions were had with the patient's family on goals of care and the patient's family states that the patient wishes were to not be kept alive artificially on machines and if there was no hope for meaningful recovery that she would not want to be kept alive with aggressive measures. Decisions for family to pursue less aggressive measures was considered and the patient's family elected for do not attempt resuscitate code status. Family was discussed on options concerning tracheostomy and PEG tube, and the patient's family stating that these measures would only prolong the patient's pain and suffering. These invasive surgical procedures were not chosen by the patient's family. The patient does have severe end-stage COPD and cor pulmonale and the possibility of her ever coming off ventilators was low per specialists, Pulmonology and Cardiology. The patient had a terminal extubation and was transferred to the medical floor on 02/20/2019. The patient did from cardiopulmonary arrest secondary to hypoxia from end-stage COPD and cor pulmonale. The patient was transferred to [facility] of the patient's family selecting. Further plan of care to be determined by mortuary. Greater than 45 minutes spent coordinating care and discharge process for this patient. Job ID: [id number]
--- NOTE | 2019-02-23 08:57 | PQF ---
[employer] Department Manager Crystal Reports Winform ViewerMCEDWARDO HAAS CHARLES DO [id number] [facility]- B01 [id number] CLINICAL DOCUMENTATION CLARIFICATION FORM: POST DISCHARGE Addendum to original discharge summary date: ____ Late entry note date: __ DATE: 02/23/2019 ATTN: TIMUR MAJANO DO Please exercise your independent, professional judgment in responding to the clarification form. Clinical indicators are provided on the bottom of this form for your review Please check appropriate box(s) to clarify if the following diagnosis has been ruled in or ruled out: Septic shock [ x ] Ruled in diagnosis [ ] Continue to treat [ ] Resolved [ ] Ruled out diagnosis [ ] Cannot rule out diagnosis [ ] Other diagnosis [ ] Unable to determine In addition, please specify: Present on Admission (POA): [ x ] Yes [ ] No [ ] Unable to determine For continuity of documentation, please document condition throughout progress notes and discharge summary. Thank You. CLINICAL INDICATORS - SIGNS / SYMPTOMS / LABS -Reason for admission: Septic shock- DS, 02/20, Hang Tomlinson DO -WBC:19.4H-Laboratory, 02/18 -Temp: 98.9, Pulse:109, RR:24-H&P, 02/11, Karrie Weathers MD -Altered mental status-Consultation, 02/10, Heather Rust MD -Acute kidney injury-02/10, Tyrell Sanchez MD RISK FACTORS -Acute respiratory failure-DS, 02/20, Hang Tomlinson DO -Advanced COPD-Progress note, 02/15, Capo Carmen MD TREATMENTS -Zosyn.IV-AUG, 02/18 -Vancomycin.IV-MAR, 02/18 [employer] Department Manager Crystal Reports Winform Viewer(This form is maintained as a part of the permanent medical record) 2014 [employer]. All Rights Reserved Rakiyhannan Kumaresan [not provided] [not provided] MTDD
== END 2019-02-20 18:57 | disposition expired | DRG 870 ==
LOC: ERS 17:06 → IMCU/EMU 20:05 → CCU 02-10 16:44 → ONC 02-19 15:11
PROVIDERS: ADMIT Internal Medicine; ATTEND Internal Medicine
PROC: 5A09357 Assistance with Respiratory Ventilation, Less than 24 Consecutive Hours, Continuous Positive Airway Pressure (ICD-10-PCS; 2019-02-09)
PROC: 0BH17EZ Insertion of Endotracheal Airway into Trachea, Via Natural or Artificial Opening (ICD-10-PCS; principal; 2019-02-10)
PROC: 5A1955Z Respiratory Ventilation, Greater than 96 Consecutive Hours (ICD-10-PCS; 2019-02-10)
DX: A41.9 Sepsis, unspecified organism (principal); J96.01 Acute respiratory failure with hypoxia; I50.33 Acute on chronic diastolic (congestive) heart failure; R65.21 Severe sepsis with septic shock; J96.02 Acute respiratory failure with hypercapnia; J44.1 Chronic obstructive pulmonary disease with (acute) exacerbation; N17.9 Acute kidney failure, unspecified; I13.0 Hypertensive heart and chronic kidney disease with heart failure and stage 1 through stage 4 chronic kidney disease, or unspecified chronic kidney disease; E87.0 Hyperosmolality and hypernatremia; I42.9 Cardiomyopathy, unspecified; I27.81 Cor pulmonale (chronic); E11.22 Type 2 diabetes mellitus with diabetic chronic kidney disease; I50.810 Right heart failure, unspecified; I27.20 Pulmonary hypertension, unspecified; E03.9 Hypothyroidism, unspecified; Z51.5 Encounter for palliative care; F17.210 Nicotine dependence, cigarettes, uncomplicated; M19.90 Unspecified osteoarthritis, unspecified site; I46.9 Cardiac arrest, cause unspecified; G47.33 Obstructive sleep apnea (adult) (pediatric); N18.9 Chronic kidney disease, unspecified; Z79.4 Long term (current) use of insulin; Z79.82 Long term (current) use of aspirin; Z79.899 Other long term (current) drug therapy; Z66 Do not resuscitate
CPT/HCPCS: 36415; 36416; 71045; 72170; 72192; 80048; 80053; 82805; 83605; 83880; 84484; 85007; 85025; 85027; 87040; 87086; 93005; 93970; 94002; 94003; 94640; 94660; 94760; 96374; 96375; 96376; 99292; J1650; J1815; J1940; J1956; J2060; J2250; J2270; J2310; J2405; J2543; J2765; J2920; J3010; J3370; J3490; J7050; J7620; S0028